=== PATIENT | female | born 1950 | race Caucasian/White ===

== ENCOUNTER 2020-09-07 00:19 | Inpatient (IN) | payer MEDICARE, SELFPAY ==
[2020-09-07] VITALS (27 sets, daily range): BP systolic 113–183; BP diastolic 51–124; PULSE 74–159; RESP 16–39; TEMP 35.8–37.1; O2SAT 82–98
--- NOTE | ~2020-09-07 | XR_ITS ---
EXAMINATION: XR chest 1V portable EXAM DATE: 09/07/2020 01:06 INDICATION: rule out pneumonia, covid PUI, shortness of breath x 24 hrs. TECHNIQUE: Portable AP frontal chest x-ray was obtained. Comparison is made to prior examination from 03/14/2008. FINDINGS: Small amount of right basilar atelectasis or infiltrate. The lungs are otherwise clear. Th ere are no pleural effusions. Cardiac silhouette is prominent but magnified on this AP technique. M ild hyperinflation. There is aortic arteriosclerosis. There is no pneumothorax suspected. The bones and soft tissues are unremarkable. IMPRESSION: Small amount of right basilar atelectasis or infiltrate. Hyperinflation. Reviewed, dictated and finalized at location A. 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 Hyperinfla tion.
--- NOTE | 2020-09-07 00:27 | ED.SOB ---
HPI - SOB/Dyspnea General Chief Complaint: Shortness of Breath/Dyspnea Stated Complaint: difficulty breathing Time Seen by Provider: 09/07/20 00:26 Source: patient and family Mode of arrival: wheelchair Limitations: no limitations History of Present Illness HPI Narrative: Patient is a 70-year-old female with a history of hypertension, hyperlipidemia, previous heart attack in 2003 who presents for evaluation of shortness of breath. Patient with increasing shortness of breath over the past 24 hours. She is denying any chest pain. Patient states she is having difficulty breathing, she has had a dry cough. She denies fever, chills or recent sick contacts. She reports mild congestion without sore throat. No loss of sense of taste or smell. is well without any symptoms. Patient is a smoker but she denies any history of COPD. Related Data Allergies Allergy/AdvReac Type Severity Reaction Status Date / Time No Known Allergies Allergy Unverified 01/26/17 00:28 Review of Systems Review of Systems: Narrative: CONSTITUTIONAL: Denies fever, chills, or sweats. EYES: Denies visual changes, redness, or discharge. ENT: Reports mild congestion without sore throat CARDIOVASCULAR: Denies chest pain, palpitations, or edema. RESPIRATORY: Reports cough and shortness of breath GASTROINTESTINAL: Denies abdominal pain, nausea, vomiting, or diarrhea. GENITOURINARY: Denies dysuria or hematuria. SKIN: Denies rash or itching. MUSCULOSKELETAL: Denies back pain, joint pain, or myalgia. NEUROLOGIC: Denies headache, numbness, or weakness. PSYCHIATRIC: Reports history of anxiety PMF Past Medical History Medical History (Updated 09/07/20 @ 02:00 by Giulia Duncan MD) Depression Heart attack Hyperlipidemia Hypertension Nephrolithiasis Social History Social History (Updated 09/07/20 @ 00:51 by Giulia Duncan MD) Smoking status: Current every day smoker Tobacco type: cigarettes Alcohol intake: never Substance use: never Living arrangements: with family Gender identity (if verbalized by the patient): Female Exam Narrative: Exam Narrative: GENERAL: Awake, alert, tachypneic, able to converse in short sentences HEAD: Normocephalic, atraumatic. EYES: PERRLA and EOMI. ENT: Nares clear, no rhinorrhea or epistaxis. Mucous membranes moist. NECK: Supple. CHEST: Moderate respiratory distress, patient is tachypneic, use of abdominal accessory muscles to breathe, decreased aeration at the bases bilaterally HEART: Tachycardic rate, sinus rhythm ABDOMEN:Non distended, non tender EXTREMITIES: Normal range of motion. No edema. SKIN: Warm, dry, no rash. NEURO:No focal deficits. Alert and oriented x3 Course Vital Signs Vital signs: Vital Signs Temperature 37.0 C 09/07/20 00:25 Pulse Rate 141 H 09/07/20 00:25 Respiratory Rate 38 H 09/07/20 00:25 Blood Pressure 183/99 H 09/07/20 00:25 Pulse Oximetry 86 L 09/07/20 00:25 Temperature 37.0 C 09/07/20 00:25 Pulse Rate 92 09/07/20 01:17 Respiratory Rate 28 H 09/07/20 01:17 Blood Pressure 183/99 H 09/07/20 00:31 Pulse Oximetry 96 09/07/20 01:15 MDM - SOB/Dyspnea MDM Narrative Medical decision making narrative: Patient presenting for evaluation of shortness of breath. The time of assessment, patient is in respiratory distress. She is tachycardic, tachypneic, hypoxic. Patient was placed on oxygen via nasal cannula, given smoking history, coarse breath sounds with decreased aeration at bilateral bases, is also concern for COPD exacerbation. She did have mild lower extremity edema concerning for possible CHF. Patient was given continuous DuoNeb treatment, magnesium, steroids with much improvement in her symptoms. She was quite hypertensive, given BNP is over 6000, was also concern for concurrent CHF as give the patient Lasix, nitroglycerin which also greatly improved her symptoms. Perhaps multifactorial origin of the hypoxic respiratory failure given conc
--- NOTE | 2020-09-07 00:28 | ECG_ITS ---
Measurements Intervals [place] Rate: 130 P: 57 ND: 150 QRS: -10 QRSD: 113 T: 28 QT: 305 QTc: 449 Interpretive Statements SINUS TACHYCARDIA INTRAVENTRICULAR CONDUCTION DELAY CONSIDER INFERIOR INFARCT, AGE INDETERMINATE ST-T WAVE ABNORMALITY IN HIGH LATERAL LEADS- CONSIDER ISCHEMIA BASELINE ARTIFACT- I, II, III, AVR, V1, V3-V6 ABNORMAL ECG Electronically Signed On 09-07-2020 8:54:21 ASSISTANT DISTRICT ATTORNEY by Isac Dey D.O.
[2020-09-07] MEDS: SODIUM CHLORIDE 0.9% IV 1,000 ML 999 ML IV CONT (00:50)
[2020-09-07 00:53] LABS: Alveolar/Arterial O2 Gradient 30.3 mmHg; Base Excess ABG 0.9 mEq/l (+/-2.0); Carboxyhemoglobin 5.8 % THb (0-2.0); Fractional Inspired Oxygen 24 %; HCO3 ABG 26.5 mEq/l (22.0-26.0); Methemoglobin ABG 0.3 %THb (0-1.5); Oxygen Content ABG 19.3 %vol (16.0-22.0); Oxygen Saturation ABG 96.3 % (95.0-100.0); Oxyhemoglobin 90.5 % THb (90.0-100.0); PCO2 ABG 45.8 mmHg (35.0-45.0); PO2 ABG 86.3 mmHg (80.0-100.0); Reduced Hemoglobin 3.4 %THb (0-5.0); Total Hemoglobin 15.1 g/dL (12.0-18.0)
[2020-09-07 00:59] LABS: Basophils Percent Auto 0.3 % (0.2-1.2); Eosinophils Percent Auto 0.3 % (0-4.4); Hematocrit 43.9 % (37.0-47.0); Hemoglobin 14.7 g/dL (12.0-15.0); Immature Granulocyte Absolute 0.06 K/mm3 (0.00-0.031); Immature Granulocyte Percent A 0.5 % (0-0.5); Lymphocytes Absolute Auto 1.78 K/mm3 (0.9-3.2); Lymphocytes Percent Auto 13.5 % (18.3-44.2); Mean Corpuscular HGB Conc 33.5 g/dl (32-36); Mean Corpuscular Hemoglobin 29.2 pg (26-34); Mean Corpuscular Volume 87.3 fl (80-100); Mean Platelet Volume 11.7 fl (7.4-10.4); Monocytes Absolute Auto 0.7 K/mm3 (0.1-0.6); Monocytes Percent Auto 5.2 % (2.6-8.5); Neutrophils Absolute Auto 10.6 K/mm3 (1.3-6.7); Neutrophils Percent Auto 80.2 % (45.5-73.1); Platelet Count Result 341 k/mm3 (150-375); Red Blood Count 5.03 M/mm3 (4.2-5.4); Red Cell Distribution Width 12.2 % (11.5-14.5); White Blood Count 13.2 K/mm3 (4.5-10.0)
[2020-09-07] MEDS: ALBUTEROL SULFATE NEB 2.5 MG/0.5 ML INH 20 MG INHALATION (01:05)
[2020-09-07 01:06] LABS: INR 1.1; Prothrombin Time 14.6 Seconds (11.1-14.7)
[2020-09-07 01:07] LABS: Partial Thromboplastin Time 34.5 SECONDS (22.3-36.8)
[2020-09-07 01:08] LABS: Lactic Acid Reflex 1.7 mmol/L (0.7-2.1)
[2020-09-07 01:11] LABS: Alanine Aminotransferase 13 U/L (4-35); Albumin Level 3.8 g/dL (3.5-5.1); Alkaline Phosphatase 113 U/L (38-126); Anion Gap 6 mmol/L (8-16); Aspartate Amino Transferase 22 U/L (14-36); Bilirubin,Total 0.6 mg/dL (0.2-1.3); Blood Urea Nitrogen 6 mg/dL (7-17); CRP 6.2 mg/dL (<1.0); Carbon Dioxide 31 mmol/L (22-30); Chloride 101 mmol/L (98-107); Estimated CRCL calculation 58 ml/min; Estimated Glomerular Filt Rate > 60; Glucose 164 mg/dL (65-105); Lactate Dehydrogenase 476 U/L (313-618); Potassium 3.4 mmol/L (3.4-5.0); Sodium 138 mmol/L (137-145)
[2020-09-07] MEDS: methylPREDNISolone SOD SUCC 125 MG VIAL IV PUSH (01:19)
[2020-09-07] MEDS: MAGNESIUM SULF 2 GM/WATER 50ML 2 GM/50 ML BAG IVPB (01:19)
[2020-09-07 01:26] LABS: NT Pro B Type Natriuretic Pept 6140 PG/ML (5-100); Troponin I 0.592 ng/mL (0.000-0.034)
[2020-09-07] MEDS: FUROSEMIDE INJ 40 MG/4 ML VIAL IV PUSH ×2 (01:45→09:33)
[2020-09-07] MEDS: NITROGLYCERIN OINTMENT 1 INCH DOSE TRANSDERM (01:45)
[2020-09-07] MEDS: NITROGLYCERIN SL 0.4 MG TABLET SUBLINGUAL (01:50)
[2020-09-07 02:55] LABS: Add Urine Microscopic? YES; Appearance Urine Clear (Clear); Bacteria Urine Trace /hpf; Bilirubin Urine Negative (Negative); Blood Urine 1+ (Negative); Color Urine Straw (Yellow); Glucose Urine UA Negative (Negative); Ketones Urine Negative (Negative); Leukocyte Esterase Ur 1+ LEU/UL (Negative); Mucus Urine Rare /lpf; Nitrate Urine Negative (Negative); Protein Urine Negative (Negative); Specific Grav Ur 1.009 (1.001-1.035); Squamous Epithelial Cell Urine Moderate /hpf (Few); Urobilinogen Urine Negative mg/dL (<2.0); WBC Urine 21-30 /hpf
--- NOTE | 2020-09-07 03:01 | PM.IMHP ---
H&P: HPI History of Present Illness Date/Time: 09/07/20 03:01 Chief complaint: COPD exacerbation, CHF exacerbation Narrative: This is a pleasant 70-year-old female with known history of hypertension, hyperlipidemia, coronary artery disease status post stent placement who is a chronic smoker and presented to the hospital with a complaint of increased shortness of breath over the past day. The patient has not noticed Ng any increased wheezing although she does report having hacking dry cough. She also denies any significant fevers, chills, chest pain, palpitations, abdominal pain, dysuria, rectal bleeding, or black tarry stools. She also does report having increased lower extremity swelling recently. She has no previous history of COPD that she is aware of. The patient was evaluated emergency room this evening and found to have an elevated BNP of 6140, an elevated troponin of 0.592, and chest x-ray demonstrated bilateral pulmonary edema. Urinalysis was also suspicious for possible UTI. Patient has been treated with breathing treatments and IV Lasix. She has no previous history of congestive heart failure, Cirrhosis, or nephrotic syndrome. she was placed on 2 L of oxygen via nasal cannula and swab for frank virus. She has no other complaints at this time. Review of Systems Review of Systems: All systems reviewed & are unremarkable except as noted in HPI and below PMFSH Past Medical History Medical History Depression Heart attack Hyperlipidemia Hypertension Nephrolithiasis Surgical History Surgical History History of coronary artery stent placement Family History Family History Father Cancer Mother Acute myocardial infarction Social History Social History Smoking packs per day: 1.5 Smoking cigarettes per day: 30.0 Years smoked: 50 Smoking pack-years: 75.00 Smoking status: Current every day smoker Tobacco type: cigarettes Alcohol intake: never Substance use: never Living arrangements: with family Gender identity (if verbalized by the patient): Female Spiritual care concerns: No Meds Home Medications and Allergies Home Medications Medication Instructions Recorded Confirmed Type aspirin 325 mg PO DAILY 09/07/20 09/07/20 History losartan 25 mg DAILY 09/07/20 09/07/20 History Allergies Allergy/AdvReac Type Severity Reaction Status Date / Time No Known Allergies Allergy Unverified 01/26/17 00:28 Vital Signs Vital Signs - 24 hr 09/07/20 00:25 09/07/20 00:27 09/07/20 00:28 Temperature 37.0 C Pulse Rate 141 H 159 H 132 H Respiratory Rate 38 H 28 H 37 H Blood Pressure 183/99 H 162/124 H Pulse Oximetry 86 L 82 L 87 L 09/07/20 00:30 09/07/20 00:31 09/07/20 00:45 Temperature Pulse Rate 138 H 135 H 128 H Respiratory Rate 39 H 23 H 33 H Blood Pressure 183/99 H Pulse Oximetry 91 93 93 09/07/20 00:51 09/07/20 01:00 09/07/20 01:15 Temperature Pulse Rate 130 H 118 H 105 H Respiratory Rate 31 H 21 H Blood Pressure Pulse Oximetry 94 95 96 09/07/20 01:17 09/07/20 02:51 Temperature Pulse Rate 92 89 Respiratory Rate 28 H 24 H Blood Pressure 130/72 Pulse Oximetry 95 Exam Const: General: cooperative, alert and awake Nutritional Appearance: obese morbidly obese Orientation/consciousness: patient oriented x3 HENMT: Head: normal to inspection General nose exam: Normal external nose present Face and sinus: normal facial exam Mouth: Yes Normal oral and palatal mucosa present and Yes oropharynx normal Eyes: Pupils: Equal, round and reactive pupils present EOM: EOMs intact bilaterally Neck: Neck: supple and no JVD Thyroid: thyroid normal Lymphatic: lymphadenopathy not noted Resp: Effort & Inspection: tachypneic Ausc
--- NOTE | 2020-09-07 03:07 | PC.NURSE ---
This patient, Monica Rangel, was admitted to IMU Room 210-01. Patient/family oriented to hospital policies and general routines including ID bracelet, bed and alarms, visiting hours, pain management, procedures, bathroom and other care routines, personal items, smoking policy, room service/diet, and visiting hours. Information on how to activate the Rapid Response Team has been discussed. Patient/Family are encouraged to report perceived risks to care and to ask questions if they do not understand what they are told or what they should do.
[2020-09-07 06:01] LABS: Basophils Percent Auto 0.2 % (0.2-1.2); Hematocrit 40.2 % (37.0-47.0); Hemoglobin 13.6 g/dL (12.0-15.0); Immature Granulocyte Absolute 0.05 K/mm3 (0.00-0.031); Immature Granulocyte Percent A 0.5 % (0-0.5); Lymphocytes Absolute Auto 0.56 K/mm3 (0.9-3.2); Lymphocytes Percent Auto 5.3 % (18.3-44.2); Mean Corpuscular HGB Conc 33.8 g/dl (32-36); Mean Corpuscular Volume 88.5 fl (80-100); Mean Platelet Volume 11.6 fl (7.4-10.4); Monocytes Absolute Auto 0.1 K/mm3 (0.1-0.6); Neutrophils Absolute Auto 9.8 K/mm3 (1.3-6.7); Platelet Count Result 267 k/mm3 (150-375); Red Blood Count 4.54 M/mm3 (4.2-5.4); Red Cell Distribution Width 12.3 % (11.5-14.5); White Blood Count 10.5 K/mm3 (4.5-10.0)
[2020-09-07 06:13] LABS: Anion Gap 6 mmol/L (8-16); Blood Urea Nitrogen 7 mg/dL (7-17); Calcium 8.5 mg/dL (8.4-10.2); Carbon Dioxide 28 mmol/L (22-30); Chloride 104 mmol/L (98-107); Estimated CRCL calculation 58 ml/min; Estimated Glomerular Filt Rate > 60; Glucose 196 mg/dL (65-105); Potassium 3.6 mmol/L (3.4-5.0); Sodium 138 mmol/L (137-145)
[2020-09-07 06:27] LABS: Troponin I 0.684 ng/mL (0.000-0.034)
[2020-09-07 07:09] LABS: Troponin I 0.673 ng/mL (0.000-0.034)
[2020-09-07] MEDS: ALBUTEROL SULFATE NEB 2.5 MG/0.5 ML INH 5 MG INHALATION ×3 (09:05→20:01)
[2020-09-07] MEDS: IPRATROPIUM BR 0.02% INH SOLN 0.5 MG/2.5 ML VIAL INHALATION ×3 (09:05→20:01)
[2020-09-07] MEDS: ASPIRIN 325 MG TABLET PO (09:33)
[2020-09-07] MEDS: methylPREDNISolone SOD SUCC 125 MG VIAL 60 MG IV PUSH ×3 (09:33→17:42)
[2020-09-07 14:03] LABS: Device NASAL CANNULA; Modified Allen's Test Pass; Site Drawn RIGHT RADIAL
--- NOTE | 2020-09-07 17:53 | PM.IMPN ---
Progress Note: A&P Assessment and Plan (1) Acute respiratory failure: Qualifiers: Respiratory failure complication: unspecified whether with hypoxia or hypercapnia Qualified Code(s): J96.00 - Acute respiratory failure, unspecified whether with hypoxia or hypercapnia Code(s): J96.00 - Acute respiratory failure, unspecified whether with hypoxia or hypercapnia Status: Acute Assessment and Plan: Admit to med-surg, telemetry, Continue oxygen supplementation and wean off as tolerated. Monitor pulse oximetry. RT assess and treat. 09/07/20 17:53 patient is 70-year-old female with history of hypertension hyperlipidemia and coronary artery disease unfortunately patient still smokes presented emergency department with a complaint of dry cough and shortness of breath suspect patient may have COVID-19 and patient is being tested an isolated, patient states feeling better compared to when she arrived, denies any fever or chills, not requiring any oxygen, patient is a current smoker her chest x-rays shows possible COPD, will do cardiac echo to further evaluate, will follow-up on COVID-19 test and further recommendation to follow (2) Congestive heart failure: Qualifiers: Heart failure chronicity: acute Heart failure type: unspecified Qualified Code(s): I50.9 - Heart failure, unspecified Code(s): I50.9 - Heart failure, unspecified Status: Acute Assessment and Plan: Continue IV lasix, Is and Os, daily weights, sodium prudent, fluid restricted diet. TSH w/ reflex T4, Echocardiogram in am. (3) Acute exacerbation of chronic obstructive airways disease: Code(s): J44.1 - Chronic obstructive pulmonary disease with (acute) exacerbation Status: Acute Assessment and Plan: The patient likely has undiagonsed COPD. Continue bronchodilators and solumedrol. Continue oxygen supplementation. (4) Elevated troponin: Code(s): R77.8 - Other specified abnormalities of plasma proteins Status: Acute Assessment and Plan: Likely secondary to acute CHF. The patient has not had any chest pain tonight. Trend troponin. (5) Suspected 2019 novel coronavirus infection: Code(s): Z20.828 - Contact with and (suspected) exposure to other viral communicable diseases Status: Acute Assessment and Plan: Continue droplet isolation. Continue supportive care. COVID-19 results pending. (6) Hypertension: Qualifiers: Hypertension type: unspecified Qualified Code(s): I10 - Essential (primary) hypertension Code(s): I10 - Essential (primary) hypertension Status: Chronic Assessment and Plan: Continue Losartan PO. (7) Tobacco dependence: Code(s): F17.200 - Nicotine dependence, unspecified, uncomplicated Status: Chronic Assessment and Plan: I have counseled the patient regarding tobacco cessation for 4 minutes. She verbalized to me that she understands and does not desire a nicotine patch. Subjective Date/time seen: 09/07/20 17:53 patient is 70-year-old female with history of hypertension hyperlipidemia and coronary artery disease unfortunately patient still smokes presented emergency department with a complaint of dry cough and shortness of breath suspect patient may have COVID-19 and patient is being tested an isolated, patient states feeling better compared to when she arrived, denies any fever or chills, not requiring any oxygen, patient is a current smoker her chest x-rays shows possible COPD, will do cardiac echo to further evaluate, will follow-up on COVID-19 test and further recommendation to follow Review of Systems Review of Systems: All systems reviewed & are unremarkable except as noted in HPI and below Objective Data Vital Signs Vital Signs: Vital Signs - 24 hr 09/07/20 00:25 09/07/20 00:27 09/07/20 00:28 Temperature 98.6 F Pulse Rate 141 H 159 H 132 H Respiratory Rate 38 H 28 H 37 H Blood Pressure
[2020-09-07 20:39] LABS: SARS-CoV-2 RNA PCR Negative
[2020-09-07] MEDS: LOSARTAN POTASSIUM 25 MG TABLET BY MOUTH (20:54)
[2020-09-08] VITALS (18 sets, daily range): BP systolic 108–143; BP diastolic 53–71; PULSE 92–997; RESP 16–20; TEMP 36.1–37.2; O2SAT 93–98
--- NOTE | 2020-09-08 | ECHO_ITS ---
Patient Info Name: Monica Rangel Age: 70 years : 1950 Gender: Female Ht: 62 in Wt: 187 lbs BSA: 1.96 m2 HR: 100 bpm BP: 136 / 77 mmHg Heart Rhythm: Sinus Rhythm Technical Quality: Good Exam Date: 09/08/2020 11:37 AM Exam Location: [facility] Patient Status: Inpatient Admit Date: 09/07/2020 Staff Ordering Physician: Arnulfo Drummond MD Air Export Agent: Zac Trotter, ARSH, RT Attending Provider: Luis Valentin MD Exam Type: CA echo doppler color flow Study Info Indications I50.9 - Heart failure, unspecified Complete two-dimensional, color flow and Doppler transthoracic echocardiogram is performed. Strain analysis performed. Summary 1. Complete two-dimensional, color flow and Doppler transthoracic echocardiogram is performed. 2. Left ventricular systolic function is normal, estimated at 65-70%. 3. There is mildly increased left ventricular wall thickness. 4. The left ventricular diastolic function is abnormal. 5. Left atrial chamber dimension is mildly enlarged. 6. There is moderate eccentric mitral valve regurgitation and which severity may be underestimated due to eccentricity. 7. There is trace tricuspid valve regurgitation. 8. Unable to estimate PA systolic pressure due to poor spectral resolution of tricuspid regurgitant jet velocity. 9. There is small pericardial effusion. Left Ventricle Left ventricular chamber dimension is normal. Left ventricular systolic function is normal, estimated at 65-70%. There is mildly increased left ventricular wall thickness. The left ventricular diastolic function is abnormal. Global longitudinal strain is mildly elevated at -17 %. Right Ventricle Right ventricular chamber dimension is normal. Right ventricular systolic function is normal. Left Atria Left atrial chamber dimension is mildly enlarged. Right Atria Right atrial chamber dimension is normal. Aortic Valve The aortic valve is not well visualized. There is mild aortic valve stenosis with a peak velocity of 197 cm/s, mean gradient of 8 mmHg, and aortic valve area of 1.9 cm2. There is no aortic valve regurgitation. Pulmonic Valve The pulmonic valve is not well visualized. There is trace pulmonic regurgitation. Mitral Valve The mitral valve has normal leaflets. There is moderate eccentric mitral valve regurgitation and which severity may be underestimated due to eccentricity. The mitral valve annulus is mildly calcified. Tricuspid Valve The tricuspid valve leaflets are normal. There is trace tricuspid valve regurgitation. Unable to estimate PA systolic pressure due to poor spectral resolution of tricuspid regurgitant jet velocity. Pericardium/Pleural The pericardium appears normal. There is small pericardial effusion. Inferior Vena Cava Dilated inferior vena cava with <50% collapse upon inspiration consistent with elevated right atrial pressure, 10 mmHg. Aorta The aortic root size at the sinus of Valsalva is normal. There is mild aortic atherosclerosis. Left Ventricular Outflow Tract Name Value Normal LVOT 2D LVOT Diameter 2.0 cm LVOT Doppler LVOT Peak Gradient
[2020-09-08] MEDS: methylPREDNISolone SOD SUCC 125 MG VIAL 60 MG IV PUSH ×5 (00:27→23:29)
[2020-09-08] MEDS: ALBUTEROL SULFATE NEB 2.5 MG/0.5 ML INH 5 MG INHALATION ×4 (02:08→20:56)
[2020-09-08] MEDS: IPRATROPIUM BR 0.02% INH SOLN 0.5 MG/2.5 ML VIAL INHALATION ×4 (02:08→20:56)
[2020-09-08 05:46] LABS: Alanine Aminotransferase 14 U/L (4-35); Albumin Level 3.5 g/dL (3.5-5.1); Alkaline Phosphatase 79 U/L (38-126); Anion Gap 8 mmol/L (8-16); Aspartate Amino Transferase 23 U/L (14-36); Bilirubin,Total 0.3 mg/dL (0.2-1.3); Blood Urea Nitrogen 20 mg/dL (7-17); Calcium 9.1 mg/dL (8.4-10.2); Carbon Dioxide 30 mmol/L (22-30); Chloride 101 mmol/L (98-107); Estimated CRCL calculation 52 ml/min; Estimated Glomerular Filt Rate > 60; Glucose 193 mg/dL (65-105); Potassium 3.3 mmol/L (3.4-5.0); Sodium 139 mmol/L (137-145)
[2020-09-08] MEDS: ASPIRIN 325 MG TABLET PO (08:43)
[2020-09-08] MEDS: FUROSEMIDE INJ 40 MG/4 ML VIAL IV PUSH (08:43)
[2020-09-08] MEDS: POTASSIUM CHLORIDE 20 MEQ TABLET 40 MEQ PO (13:01)
--- NOTE | 2020-09-08 14:56 | PM.IMPN ---
Progress Note: A&P Assessment and Plan (1) Acute respiratory failure: Qualifiers: Respiratory failure complication: unspecified whether with hypoxia or hypercapnia Qualified Code(s): J96.00 - Acute respiratory failure, unspecified whether with hypoxia or hypercapnia Code(s): J96.00 - Acute respiratory failure, unspecified whether with hypoxia or hypercapnia Status: Acute Assessment and Plan: Admit to med-surg, telemetry, Continue oxygen supplementation and wean off as tolerated. Monitor pulse oximetry. RT assess and treat. 09/08/20 14:56 patient is 70-year-old female with history of hypertension hyperlipidemia and coronary artery disease unfortunately patient still smokes presented emergency department with a complaint of dry cough and shortness of breath suspect patient may have COVID-19 and patient was tested and isolated, patient COVID test is negative and now patient is on medical floor, most likely patient has shortness of breath secondary to emphysema as patient has history of smoking possible, congestive heart failure as her BNP was 6100, cardiac echo is pending, patient being treated with updraft and Solu-Medrol for possible COPD exacerbation and patient is diuresed for CHF, patient clinically symptoms are improving however her lung exam shows pretty tight air entry, plan is to continue Solu-Medrol and updraft and will add Pulmicort, will continue Lasix and diurese the patient, follow-up on cardiac echo and further recommendation to follow, for PT OT evaluate the patient, encouraged to stop smoking. (2) Congestive heart failure: Qualifiers: Heart failure chronicity: acute Heart failure type: unspecified Qualified Code(s): I50.9 - Heart failure, unspecified Code(s): I50.9 - Heart failure, unspecified Status: Acute Assessment and Plan: Continue IV lasix, Is and Os, daily weights, sodium prudent, fluid restricted diet. TSH w/ reflex T4, Echocardiogram in am. (3) Acute exacerbation of chronic obstructive airways disease: Code(s): J44.1 - Chronic obstructive pulmonary disease with (acute) exacerbation Status: Acute Assessment and Plan: The patient likely has undiagonsed COPD. Continue bronchodilators and solumedrol. Continue oxygen supplementation. (4) Elevated troponin: Code(s): R77.8 - Other specified abnormalities of plasma proteins Status: Acute Assessment and Plan: Likely secondary to acute CHF. The patient has not had any chest pain tonight. Trend troponin. (5) Suspected 2019 novel coronavirus infection: Code(s): Z20.828 - Contact with and (suspected) exposure to other viral communicable diseases Status: Acute Assessment and Plan: Continue droplet isolation. Continue supportive care. COVID-19 results pending. (6) Hypertension: Qualifiers: Hypertension type: unspecified Qualified Code(s): I10 - Essential (primary) hypertension Code(s): I10 - Essential (primary) hypertension Status: Chronic Assessment and Plan: Continue Losartan PO. (7) Tobacco dependence: Code(s): F17.200 - Nicotine dependence, unspecified, uncomplicated Status: Chronic Assessment and Plan: I have counseled the patient regarding tobacco cessation for 4 minutes. She verbalized to me that she understands and does not desire a nicotine patch. Subjective Date/time seen: 09/08/20 14:56 patient is 70-year-old female with history of hypertension hyperlipidemia and coronary artery disease unfortunately patient still smokes presented emergency department with a complaint of dry cough and shortness of breath suspect patient may have COVID-19 and patient was tested and isolated, patient COVID test is negative and now patient is on medical floor, most likely patient has shortness of breath secondary to emphysema as patient has history of smoking possible, congestive heart failure as her BNP was
[2020-09-08] MEDS: LOSARTAN POTASSIUM 25 MG TABLET BY MOUTH (20:34)
[2020-09-08] MEDS: BUDESONIDE RESPULE NEB 0.5 MG/2 ML AMP INHALATION (20:56)
[2020-09-09] VITALS (7 sets, daily range): BP systolic 120–140; BP diastolic 69; PULSE 87–103; RESP 16–20; TEMP 36.4–36.6; O2SAT 95–96
[2020-09-09] MEDS: IPRATROPIUM BR 0.02% INH SOLN 0.5 MG/2.5 ML VIAL INHALATION ×3 (03:07→13:12)
[2020-09-09] MEDS: ALBUTEROL SULFATE NEB 2.5 MG/0.5 ML INH 5 MG INHALATION ×3 (03:07→13:12)
[2020-09-09 05:07] LABS: Albumin Level 3.6 g/dL (3.5-5.1); Alkaline Phosphatase 71 U/L (38-126); Anion Gap 9 mmol/L (8-16); Aspartate Amino Transferase 36 U/L (14-36); Bilirubin,Total 0.4 mg/dL (0.2-1.3); Blood Urea Nitrogen 30 mg/dL (7-17); Calcium 9.2 mg/dL (8.4-10.2); Carbon Dioxide 29 mmol/L (22-30); Chloride 102 mmol/L (98-107); Estimated CRCL calculation 52 ml/min; Estimated Glomerular Filt Rate > 60; Glucose 176 mg/dL (65-105); Potassium 4.1 mmol/L (3.4-5.0); Sodium 140 mmol/L (137-145)
[2020-09-09 05:11] LABS: Alanine Aminotransferase 23 U/L (4-35)
[2020-09-09] MEDS: methylPREDNISolone SOD SUCC 125 MG VIAL 60 MG IV PUSH ×2 (05:38→12:29)
--- NOTE | 2020-09-09 06:47 | P.CDI_ITS ---
CDI Query Clarification Request -Acute CHF has been documented -Lasix 40mg IV daily ordered -Echo summary: EF 65-70%, diastolic function is abnormal,small pericardial effusion Please clarify type of acute CHF: * Systolic * Diastolic * Both systolic and diastolic * Unable to determine <Dionne Escalante RN - Last Filed: 09/09/20 06:50> Clarified Diagnosis (1) Congestive heart failure: Qualifiers: Heart failure chronicity: acute Heart failure type: unspecified Qualified Code(s): I50.9 - Heart failure, unspecified <Dionne Escalante RN - Last Filed: 09/09/20 06:50> Code(s): I50.9 - Heart failure, unspecified <Dionne Escalante RN - Last Filed: 09/09/20 06:50> Status: Acute <Dionne Escalante RN - Last Filed: 09/09/20 06:50> Assessment and Plan: Patient presented with shortness of breath initially suspected the patient may have congestive heart failure and was started on Lasix however cardiac echo showed normal ejection fraction and mild diastolic dysfunction most likely patient had acute on chronic diastolic dysfunction <Arnulfo Drummond MD - Last Filed: 09/24/20 10:23>
[2020-09-09] MEDS: BUDESONIDE RESPULE NEB 0.5 MG/2 ML AMP INHALATION (09:16)
[2020-09-09] MEDS: ASPIRIN 325 MG TABLET PO (09:29)
[2020-09-09] MEDS: FUROSEMIDE INJ 40 MG/4 ML VIAL IV PUSH (09:29)
--- NOTE | 2020-09-09 15:13 | PM.DS ---
DS: Admitting Diagnosis Admitting Diagnosis Admitting Diagnosis: COPD exacerbation, CHF exacerbation DS: Discharge Diagnosis Discharge Diagnosis (1) Acute respiratory failure: Qualifiers: Respiratory failure complication: unspecified whether with hypoxia or hypercapnia Qualified Code(s): J96.00 - Acute respiratory failure, unspecified whether with hypoxia or hypercapnia Code(s): J96.00 - Acute respiratory failure, unspecified whether with hypoxia or hypercapnia Status: Acute Assessment and Plan: Admit to med-surg, telemetry, Continue oxygen supplementation and wean off as tolerated. Monitor pulse oximetry. RT assess and treat. 09/08/20 14:56 patient is 70-year-old female with history of hypertension hyperlipidemia and coronary artery disease unfortunately patient still smokes presented emergency department with a complaint of dry cough and shortness of breath suspect patient may have COVID-19 and patient was tested and isolated, patient COVID test is negative and now patient is on medical floor, most likely patient has shortness of breath secondary to emphysema as patient has history of smoking possible, congestive heart failure as her BNP was 6100, cardiac echo is pending, patient being treated with updraft and Solu-Medrol for possible COPD exacerbation and patient is diuresed for CHF, patient clinically symptoms are improving however her lung exam shows pretty tight air entry, plan is to continue Solu-Medrol and updraft and will add Pulmicort, will continue Lasix and diurese the patient, follow-up on cardiac echo and further recommendation to follow, for PT OT evaluate the patient, encouraged to stop smoking. (2) Congestive heart failure: Qualifiers: Heart failure chronicity: acute Heart failure type: unspecified Qualified Code(s): I50.9 - Heart failure, unspecified Code(s): I50.9 - Heart failure, unspecified Status: Acute Assessment and Plan: Continue IV lasix, Is and Os, daily weights, sodium prudent, fluid restricted diet. TSH w/ reflex T4, Echocardiogram in am. (3) Acute exacerbation of chronic obstructive airways disease: Code(s): J44.1 - Chronic obstructive pulmonary disease with (acute) exacerbation Status: Acute Assessment and Plan: The patient likely has undiagonsed COPD. Continue bronchodilators and solumedrol. Continue oxygen supplementation. (4) Elevated troponin: Code(s): R77.8 - Other specified abnormalities of plasma proteins Status: Acute Assessment and Plan: Likely secondary to acute CHF. The patient has not had any chest pain tonight. Trend troponin. (5) Suspected 2019 novel coronavirus infection: Code(s): Z20.828 - Contact with and (suspected) exposure to other viral communicable diseases Status: Acute Assessment and Plan: Continue droplet isolation. Continue supportive care. COVID-19 results pending. (6) Hypertension: Qualifiers: Hypertension type: unspecified Qualified Code(s): I10 - Essential (primary) hypertension Code(s): I10 - Essential (primary) hypertension Status: Chronic Assessment and Plan: Continue Losartan PO. (7) Tobacco dependence: Code(s): F17.200 - Nicotine dependence, unspecified, uncomplicated Status: Chronic Assessment and Plan: I have counseled the patient regarding tobacco cessation for 4 minutes. She verbalized to me that she understands and does not desire a nicotine patch. DS: Summary Hospital Course Reason for hospitalization: Chief complaint: COPD exacerbation, CHF exacerbation Narrative: This is a pleasant 70-year-old female with known history of hypertension, hyperlipidemia, coronary artery disease status post stent placement who is a chronic smoker and presented to the hospital with a complaint of increased shortness of breath over the past day. The patient has not noticed Ng any increased whe
== END 2020-09-09 16:00 | disposition home or self-care (01) | DRG 190 ==
LOC: ANHED 02:00 → ANHIMU 06:24
PROVIDERS: Admitting Provider Family Medicine; Emergency Provider Emergency Medicine; PCP Family Medicine Adolescent Medicine; Visit Provider Family Medicine
DX: J43.9 Emphysema, unspecified (principal); J96.00 Acute respiratory failure, unspecified whether with hypoxia or hypercapnia; N39.0 Urinary tract infection, site not specified; I11.0 Hypertensive heart disease with heart failure; I50.9 Heart failure, unspecified; Z20.828 Contact with and (suspected) exposure to other viral communicable diseases; I25.10 Atherosclerotic heart disease of native coronary artery without angina pectoris; E78.5 Hyperlipidemia, unspecified; F17.210 Nicotine dependence, cigarettes, uncomplicated; R77.8 Other specified abnormalities of plasma proteins; I25.2 Old myocardial infarction; Z28.21 Immunization not carried out because of patient refusal; Z95.5 Presence of coronary angioplasty implant and graft; Z79.82 Long term (current) use of aspirin; Z79.899 Other long term (current) drug therapy
CPT/HCPCS: 36415; 36600; 71045; 80048; 80053; 81001; 82375; 82728; 82805; 83050; 83605; 83615; 83880; 84484; 85025; 85610; 85730; 86140; 87040; 87077; 87086; 87088; 87186; 87635; 87804; 93005; 93306; 94640; 96365; 96367; 96375; 99285; A9270; C9803; J0131; J1940; J2930; J3475; J7030; U0003

== ENCOUNTER 2021-01-10 09:41 | Observation (INO) | payer MEDICARE, SELFPAY ==
[2021-01-10] VITALS (9 sets, daily range): BP systolic 103–126; BP diastolic 61–78; PULSE 72–99; RESP 18–20; TEMP 36.6–37.1; O2SAT 93–100; BMI 32.4
--- NOTE | ~2021-01-10 | US_ITS ---
EXAMINATION: US venous doppler LE RT DATE: 01/10/2021 11:18 INDICATION: Right lower limb pain and swelling. TECHNIQUE: Grayscale ultrasound images without and with compression and Doppler ultrasound images of the right lower extremity veins were obtained. COMPARISON: None. FINDINGS: The visualized portions of right common femoral vein, profunda (deep) femoral vein, femoral vein, pop liteal vein, peroneal veins, posterior tibial veins, and greater saphenous vein outflow are patent. IMPRESSION: 1. No deep venous thrombosis. Reviewed, dictated and finalized at location A.
--- NOTE | ~2021-01-10 | XR_ITS ---
EXAMINATION: XR foot RT min 3V DATE: 01/10/2021 10:44 INDICATION: Right foot pain. TECHNIQUE: 4 views of right foot were obtained. COMPARISON: None. FINDINGS: Bone alignment is normal. No fracture. There is mild osteoarthritis of first metatarsophala ngeal joint and some of the interphalangeal joints. There are enthesophytes at the posterior and plan tar aspects of calcaneal tuberosity. IMPRESSION: 1. Mild polyarticular osteoarthritis. Reviewed, dictated and finalized at location A.
--- NOTE | 2021-01-10 10:33 | ED.LOWEXIN ---
HPI - Extremity Injury (Lower) General Chief Complaint: Extremity Injury, Lower Stated Complaint: right foot/r/o dvt Time Seen by Provider: 01/10/21 10:09 Source: patient Mode of arrival: ambulatory Limitations: no limitations History of Present Illness HPI Narrative: This is a 71 year old female that presents to the ER for right lower leg pain and swelling. Reports it started this morning. No known injury or trauma. Pain is mostly in the lateral aspect of the foot. Reports swelling of the foot into the ankle. Denies fever, erythema, decreased range of motion or warmth. Related Data Home Medications Medication Instructions Recorded Confirmed aspirin 325 mg PO DAILY 09/07/20 09/07/20 losartan 25 mg DAILY 09/07/20 09/07/20 Allergies Allergy/AdvReac Type Severity Reaction Status Date / Time No Known Allergies Allergy Unverified 01/26/17 00:28 Review of Systems Review of Systems: Narrative: CONSTITUTIONAL: Denies fever SKIN: Denies rash MUSCULOSKELETAL: Reports joint pain, and myalgia. NEUROLOGIC: Denies numbness All systems reviewed & are unremarkable except as noted in HPI and below PMFSH Past Medical History Medical History Depression Heart attack Hyperlipidemia Hypertension Nephrolithiasis Surgical History Surgical History History of coronary artery stent placement Family History Family History Father Cancer Mother Acute myocardial infarction Social History Social History Smoking packs per day: 1.5 Smoking cigarettes per day: 30.0 Years smoked: 50 Smoking pack-years: 75.00 Smoking status: Current every day smoker Tobacco type: cigarettes Alcohol intake: never Substance use: never Gender identity (if verbalized by the patient): Female Spiritual care concerns: No Exam Narrative: Exam Narrative: GENERAL: Well-appearing, well-nourished, and in no acute distress. HEAD: Normocephalic, atraumatic. EYES: EOMI. EXTREMITIES: Normal range of motion. Mild edema about the right ankle. No erythema or warmth. Normal sensation. Normal DP pulses SKIN: Warm, dry, no rash. NEURO: No focal deficits. Alert and oriented x3. PSYCH: Normal mood and affect Course Consultations Consultation #1: Spoke with Dr. Whitman about patient and workup who accepts admission Date: 01/10/21 Time: 13:24 Vital Signs Vital signs: Vital Signs Temperature 97.8 F 01/10/21 09:49 Pulse Rate 99 01/10/21 09:49 Respiratory Rate 18 01/10/21 09:49 Blood Pressure 112/61 01/10/21 09:49 Pulse Oximetry 93 01/10/21 09:49 Temperature 97.8 F 01/10/21 09:49 Pulse Rate 99 01/10/21 09:49 Respiratory Rate 18 01/10/21 09:49 Blood Pressure 112/61 01/10/21 09:49 Pulse Oximetry 93 01/10/21 09:49 MDM - Extremity Injury (Lower) MDM Narrative Medical decision making narrative: Patient presents to the ER for right lower extremity pain and swelling. Mild swelling about the right ankle. No erythema or warmth, no rashes or wounds. Normal DP pulses and sensation. She is afebrile and nontoxic-appearing. Not injuries. Right foot x-ray shows mild polyarticular osteoarthritis. Right lower extremity venous Dopplers without evidence of DVT. Labs are significant for hemoconcentration. Metabolic panel also shows evidence of likely dehydration and hypokalemia. Patient's bicarb noted to be >40 on metabolic panel. ABG shows a bicarb of 50, so patient is retaining, but i suspect patient is a chronic retainer due to COPD. She does not have any shortness of breath. Lungs are clear. Oxygen saturation is 95% on room air. EKG without U waves. Does show some flattened T waves and QT prolongation. Patient denies any chest pain or shortness of breath. Patient will be admitted for further cardiac monitoring a
[2021-01-10 11:02] LABS: Basophils Absolute Auto 0.1 K/mm3 (0.0-0.1); Basophils Percent Auto 0.7 % (0.2-1.2); Eosinophils Percent Auto 0.3 % (0-4.4); Hematocrit 47.7 % (37.0-47.0); Hemoglobin 16.3 g/dL (12.0-15.0); Immature Granulocyte Absolute 0.04 K/mm3 (0.00-0.031); Immature Granulocyte Percent A 0.4 % (0-0.5); Lymphocytes Absolute Auto 1.21 K/mm3 (0.9-3.2); Lymphocytes Percent Auto 11.7 % (18.3-44.2); Mean Corpuscular HGB Conc 34.2 g/dl (32-36); Mean Corpuscular Hemoglobin 27.1 pg (26-34); Mean Corpuscular Volume 79.4 fl (80-100); Monocytes Absolute Auto 0.8 K/mm3 (0.1-0.6); Monocytes Percent Auto 7.3 % (2.6-8.5); Neutrophils Absolute Auto 8.2 K/mm3 (1.3-6.7); Neutrophils Percent Auto 79.6 % (45.5-73.1); Platelet Count Result 269 k/mm3 (150-375); Red Blood Count 6.01 M/mm3 (4.2-5.4); White Blood Count 10.4 K/mm3 (4.5-10.0)
[2021-01-10 11:13] LABS: Prothrombin Time 13.7 Seconds (11.1-14.7)
[2021-01-10 11:14] LABS: Blood Urea Nitrogen 29 mg/dL (7-17); Calcium 9.5 mg/dL (8.4-10.2); Carbon Dioxide > 40 mmol/L (22-30); Chloride 84 mmol/L (98-107); Estimated CRCL calculation 44 ml/min; Estimated Glomerular Filt Rate 55; Glucose 165 mg/dL (65-105); Partial Thromboplastin Time 29.5 SECONDS (22.3-36.8); Potassium 2.2 mmol/L (3.4-5.0); Sodium 132 mmol/L (137-145)
[2021-01-10 11:16] LABS: CRP 1.5 mg/dL (<1.0)
[2021-01-10 11:27] LABS: Magnesium 1.7 mg/dL (1.6-2.3)
[2021-01-10] MEDS: POTASSIUM CHLORIDE 20 MEQ TABLET 40 MEQ PO ×2 (11:33→20:08)
--- NOTE | 2021-01-10 11:50 | ECG_ITS ---
Measurements Intervals [place] Rate: 87 P: 50 [place]: 162 QRS: -23 QRSD: 130 T: 59 QT: 429 QTc: 518 Interpretive Statements SINUS RHYTHM POSSIBLE LEFT ATRIAL ENLARGEMENT INTRAVENTRICULAR CONDUCTION DELAY DELAYED PRECORDIAL R/S TRANSITION NONSPECIFIC ST & T-WAVE ABNORMALITY- DIFFUSE LEADS PROLONGED QT INTERVAL ABNORMAL ECG Electronically Signed On 01-10-2021 14:16:06 CDT by Isac Dey D.O.
[2021-01-10] MEDS: SODIUM CHLORIDE 0.9% IV 1,000 ML 125 ML ×2 (12:22→13:56)
[2021-01-10 12:55] LABS: Alveolar/Arterial O2 Gradient 66.3 mmHg; Base Excess ABG 12.9 mEq/l (+/-2.0); Carboxyhemoglobin 8.6 % THb (0-2.0); Fractional Inspired Oxygen 21 %; HCO3 ABG 38.4 mEq/l (22.0-26.0); Methemoglobin ABG 0.3 %THb (0-1.5); Oxygen Content ABG 9.7 %vol (16.0-22.0); Oxyhemoglobin 43.9 % THb (90.0-100.0); PCO2 ABG 50.5 mmHg (35.0-45.0); Reduced Hemoglobin 47.2 %THb (0-5.0); Total Hemoglobin 15.8 g/dL (12.0-18.0); pH ABG 7.499 (7.350-7.450)
[2021-01-10 12:58] LABS: Device ROOM AIR; Modified Allen's Test Pass; Oxygen Saturation ABG 44.5 % (95.0-100.0); Site Drawn LEFT RADIAL
--- NOTE | 2021-01-10 14:50 | ADMGEN ---
This patient, Monica Rangel, was admitted to 3 [facility] Surg Room 301-01. Patient/family oriented to hospital policies and general routines including ID bracelet, bed and alarms, visiting hours, pain management, procedures, bathroom and other care routines, personal items, smoking policy, room service/diet, and visiting hours. Information on how to activate the Rapid Response Team has been discussed. Patient/Family are encouraged to report perceived risks to care and to ask questions if they do not understand what they are told or what they should do.
--- NOTE | 2021-01-10 15:52 | PM.IMHP ---
H&P: HPI History of Present Illness Date/Time: 01/10/21 15:52 Chief Complaint: right foot discomfort Narrative: 71-year-old female with history of hypertension coronary disease and COPD presented the emergency department today because of an aching cramping sensation in her right foot. Her to walk on her foot. It was mild to moderate in nature. Her feet are chronically puffy. She was concerned about blood clots. Upon presentation to the emergency department she was found to have a potassium level of 2.2. She denied dizziness lightheadedness palpitations syncope presyncope or other muscle cramps. Since her hospitalization in August 2020 she was started on diuretics for leg edema. She thinks metolazone was added to her diuretic regimen and late October of 2020. She was previously taking losartan but that was discontinued sometime Since her August 2020 hospitalization. Review of Systems Review of Systems: All systems reviewed & are unremarkable except as noted in HPI and below PMFSH Past Medical History Medical History (Updated 01/10/21 @ 16:27 by Conor Whitman MD) COPD (chronic obstructive pulmonary disease) Depression Heart attack Hyperlipidemia Hypertension Nephrolithiasis Surgical History Surgical History History of coronary artery stent placement Family History Family History Father Cancer Mother Acute myocardial infarction Social History Social History Smoking packs per day: 1 Smoking cigarettes per day: 20.0 Years smoked: 50 Smoking pack-years: 50.00 Smoking status: Current every day smoker Tobacco type: cigarettes Alcohol intake: former Substance use: never Gender identity (if verbalized by the patient): Female Spiritual care concerns: No Meds Home Medications and Allergies Home Medications Medication Instructions Recorded Confirmed Type aspirin 325 mg PO DAILY 09/07/20 01/10/21 History nebulizer and compressor [Comp-Air #1 ea 09/09/20 01/10/21 Rx Nebulizer Compressor] furosemide See Rx Instructions .ROUTE .COMPLEX 01/10/21 01/10/21 History indomethacin 50 mg PO PRN PRN 01/10/21 01/10/21 History metolazone 2.5 mg PO EVERY OTHER DAY 01/10/21 01/10/21 History metoprolol tartrate 25 mg PO BID 01/10/21 01/10/21 History tiotropium-olodaterol [Stiolto 1 inh INHALATION BID 01/10/21 01/10/21 History Respimat] Allergies Allergy/AdvReac Type Severity Reaction Status Date / Time No Known Allergies Allergy Verified 01/10/21 15:03 Vital Signs Vital Signs - 24 hr 01/10/21 09:49 01/10/21 12:00 01/10/21 14:35 Temperature 97.8 F 98.7 F Pulse Rate 99 72 92 Respiratory Rate 18 18 18 Blood Pressure 112/61 126/78 103/70 Pulse Oximetry 93 100 98 01/10/21 15:15 Temperature 98.7 F Pulse Rate 92 Respiratory Rate Blood Pressure 103/70 Pulse Oximetry 98 Exam Narrative: Exam Narrative: HEENT: PERRL, sclerae nonicteric, pharyngeal mucosa pink and intact NECK: No JVD, adenopathy, or thyromegaly CHEST: Mild increased AP diameter. Coarse breath sounds with slight posterior expiratory wheeze. Normal effort. HEART: NL S1/S2, regular, no murmur ABDOMEN: BS+, soft, nontender, no mass, no bruits EXTREMITIES: No cyanosis or clubbing. Mild puffiness of both ankles without pitting. NEUROLOGIC: CN intact and symmetric to inspection. MUSCULOSKELETAL: Tone and strength symmetric. PSYCH: Alert. Oriented to person, place, and time. H&P: Results Labs Labs: Short CBC 01/10/21 Range/Units 10:55 WBC 10.4 H (4.5-10.0) K/mm3 Hgb 16.3 H (12.0-15.0) g/dL Hct 47.7 H (37.0-47.0) % Plt Count 269 (150-375) k/mm3 BMP 01/10/21 10:55 Sodium 132 L Potassium 2.2 L* Chloride 84 L Carbon Dioxide > 40 H BUN 29 H Creatinine 1.00 Glucose 165 H Calcium 9.5 Assessment
[2021-01-10] MEDS: MAGNESIUM SULF 2 GM/WATER 50ML 2 GM/50 ML BAG IVPB (16:59)
[2021-01-10] MEDS: KCL 40 MEQ/0.9% SOD CHL 1,000 ML 80 ML IV CONT (16:59)
[2021-01-10] MEDS: METOPROLOL TARTRATE 25 MG TABLET PO (17:00)
[2021-01-10] MEDS: ENOXAPARIN 40 MG/0.4 ML SYRINGE SUB-Q (18:41)
[2021-01-11] VITALS (8 sets, daily range): BP systolic 103–111; BP diastolic 51–63; PULSE 88–103; RESP 16–20; TEMP 36.3–36.4; O2SAT 90–97
[2021-01-11 06:24] LABS: Anion Gap 0 mmol/L (8-16); Blood Urea Nitrogen 15 mg/dL (7-17); Calcium 8.1 mg/dL (8.4-10.2); Carbon Dioxide 34 mmol/L (22-30); Chloride 99 mmol/L (98-107); Estimated CRCL calculation 55 ml/min; Estimated Glomerular Filt Rate > 60; Glucose 116 mg/dL (65-105); Potassium 3.3 mmol/L (3.4-5.0); Sodium 133 mmol/L (137-145)
[2021-01-11] MEDS: KCL 40 MEQ/0.9% SOD CHL 1,000 ML 80 ML IV CONT (06:27)
[2021-01-11 07:48] LABS: Hematocrit 41.5 % (37.0-47.0); Hemoglobin 13.9 g/dL (12.0-15.0); Mean Corpuscular HGB Conc 33.5 g/dl (32-36); Mean Corpuscular Hemoglobin 27.3 pg (26-34); Mean Corpuscular Volume 81.5 fl (80-100); Platelet Count Result 218 k/mm3 (150-375); Red Blood Count 5.09 M/mm3 (4.2-5.4); Red Cell Distribution Width 14.9 % (11.5-14.5); White Blood Count 8.4 K/mm3 (4.5-10.0)
[2021-01-11] MEDS: POTASSIUM CHLORIDE 20 MEQ TABLET 40 MEQ PO (08:18)
[2021-01-11] MEDS: ASPIRIN 325 MG TABLET PO (08:18)
[2021-01-11] MEDS: ATORVASTATIN 40 MG TABLET PO (08:18)
[2021-01-11] MEDS: METOPROLOL TARTRATE 25 MG TABLET PO (08:18)
--- NOTE | 2021-01-11 14:14 | PM.DS ---
DS: Admitting Diagnosis Admitting Diagnosis Admitting Diagnosis: Hypokalemia DS: Discharge Diagnosis Discharge Diagnosis (1) Acute hypokalemia: Code(s): E87.6 - Hypokalemia Status: Acute Assessment and Plan: Discharge Summary (Date of service 01/11/21): Mrs. Rangel is a 71 y.o. female with PMH significant for COPD, hyperlipidemia, hypertension, and coronary artery disease who presented to the emergency department on 01/10/21 for the evaluation of aching and cramping pain in the right foot with chronic swelling. She was concerned that she might have a DVT which prompted evaluation. She was recently started on metolazone approximately 1 month prior. On arrival to the emergency department, vitals were stable. Labs were notable for CBC with hemoconcentration, sodium 132, potassium 2.2, chloride 84, CO2 >40, BUN 29, CRP 1.5, and magnesium 1.6. ABG demonstrated elevated pH of 7.499 and pCO2 which appears to be chronic, likely due to COPD. Low pO2 on ABG likely due to presence of reduced hemoglobin. Venous doppler US was negative for DVT. Right foot x-ray demonstrated mild polyarticular osteoarthritis without acute fracture. She was treated with potassium replacement and gentle IV fluids and admitted to the hospitalist service for further care. Her electrolyte abnormalities were felt secondary to diuretic therapy. Her electrolytes improved with treatment. Her diuretic regimen prior to admission consisted of alternating furosemide 40mg and 80mg every other day. On the days she took furosemide 40mg, she also took metolazone 2.5mg. I called to discuss her diuretic regimen with Dr. Reyes who recommended that she switch to furosemide 40mg daily and continue metolazone 2.5 every other day. Potassium supplement was initiated and she will have repeat CMP in 1 week for monitoring. She will see Dr. Reyes within 1 week for a hospital follow-up visit. She was advised to monitor her volume status closely at home with daily weights. I advised she call her PCP should she gain >3 pounds in 24-48 hours or 5 pounds in 1 week. She felt much better and requested discharge. Her foot pain was possibly related to muscle cramp from hypokalemia as she noted this resolved. She had no other concerns and she was hemodynamically stable for discharge on the afternoon of 01/11/21. Worrisome signs and symptoms which would warrant return to the emergency department were discussed. Please read additional diagnoses for further information regarding her stay. (2) Metabolic alkalosis: Code(s): E87.3 - Alkalosis Status: Acute Assessment and Plan: Likely due to volume and chloride depletion. Respiratory compensation noted. She improved with gentle fluid replacment. (3) Hyponatremia: Code(s): E87.1 - Hypo-osmolality and hyponatremia Status: Acute Assessment and Plan: Likely due to thiazide diuretic and volume depletion. She received gentle IV fluids with improvement. Her home diuretic regimen was adjusted by decreasing her furosemide dose in coordination with Dr. Reyes. She will have repeat CMP in 1 week for monitoring. (4) Tobacco dependence: Code(s): F17.200 - Nicotine dependence, unspecified, uncomplicated Status: Chronic Assessment and Plan: I spent 10 minutes discussing smoking cessation with the patient. Adverse effects were discussed and she verbalized understanding. She has cut back on her smoking. We discussed resuming the nicotine patches and she will consider this and is going to speak with Dr. Reyes. (5) Hypertension: Qualifiers: Hypertension type: unspecified Qualified Code(s): I10 - Essential (primary) hypertension Code(s): I10 - Essential (primary) hypertension Status: Chronic Assessment and Plan: Blood pressures were monitored and at target. Her home antihypertensive regimen was continued. (6) COPD (chronic obstructive pulmonary disease):
== END 2021-01-11 16:50 | disposition home or self-care (01) ==
LOC: ANHED 13:13 → ANH3MEDSUR 13:41
PROVIDERS: Physician Assistant; Admitting Provider Internal Medicine; Emergency Provider Family Medicine; PCP Family Medicine Adolescent Medicine; Visit Provider Family Medicine
DX: E87.6 Hypokalemia (principal); M79.671 Pain in right foot; E78.5 Hyperlipidemia, unspecified; E87.3 Alkalosis; E87.1 Hypo-osmolality and hyponatremia; F17.210 Nicotine dependence, cigarettes, uncomplicated; I10 Essential (primary) hypertension; I25.10 Atherosclerotic heart disease of native coronary artery without angina pectoris; J44.9 Chronic obstructive pulmonary disease, unspecified; Z79.01 Long term (current) use of anticoagulants; Z95.5 Presence of coronary angioplasty implant and graft
CPT/HCPCS: 36415; 36600; 73630; 80048; 82375; 82805; 83050; 83735; 85025; 85027; 85610; 85730; 86140; 93005; 93971; 94762; 96361; 96365; 96366; 96372; 96374; 96375; 96376; 99285; A9270; G0378; J1650; J3475; J3480; J7030

== ENCOUNTER 2021-01-25 06:57 | Emergency (ER) | payer MEDICARE, SELFPAY ==
[2021-01-25 07:02] VITALS: BP 135/82; PULSE 103; RESP 16; TEMP 36; O2SAT 96
[2021-01-25 07:17] VITALS: BP 135/82; PULSE 103; RESP 16; TEMP 36; O2SAT 96
[2021-01-25 07:54] LABS: Basophils Absolute Auto 0.1 K/mm3 (0.0-0.1); Basophils Percent Auto 0.6 % (0.2-1.2); Eosinophils Absolute Auto 0.1 K/mm3 (0-0.3); Eosinophils Percent Auto 1.3 % (0-4.4); Hematocrit 47.2 % (37.0-47.0); Hemoglobin 15.4 g/dL (12.0-15.0); Immature Granulocyte Absolute 0.02 K/mm3 (0.00-0.031); Immature Granulocyte Percent A 0.2 % (0-0.5); Lymphocytes Absolute Auto 1.97 K/mm3 (0.9-3.2); Lymphocytes Percent Auto 23.5 % (18.3-44.2); Mean Corpuscular HGB Conc 32.6 g/dl (32-36); Mean Corpuscular Hemoglobin 26.6 pg (26-34); Mean Corpuscular Volume 81.7 fl (80-100); Mean Platelet Volume 10.8 fl (7.4-10.4); Monocytes Absolute Auto 0.6 K/mm3 (0.1-0.6); Monocytes Percent Auto 6.7 % (2.6-8.5); Neutrophils Absolute Auto 5.7 K/mm3 (1.3-6.7); Neutrophils Percent Auto 67.7 % (45.5-73.1); Platelet Count Result 284 k/mm3 (150-375); Red Blood Count 5.78 M/mm3 (4.2-5.4); White Blood Count 8.4 K/mm3 (4.5-10.0)
[2021-01-25 08:07] LABS: Anion Gap 3 mmol/L (8-16); Blood Urea Nitrogen 18 mg/dL (7-17); CRP 1.1 mg/dL (<1.0); Calcium 9.2 mg/dL (8.4-10.2); Carbon Dioxide 31 mmol/L (22-30); Chloride 102 mmol/L (98-107); Estimated Glomerular Filt Rate 49; Glucose 137 mg/dL (65-105); Potassium 3.9 mmol/L (3.4-5.0); Sodium 136 mmol/L (137-145)
[2021-01-25 08:23] LABS: Erythrocyte Sedimentation Rate 18 mm/hr (0-20)
--- NOTE | 2021-01-25 08:23 | ED.LOWEXIN ---
HPI - Extremity Injury (Lower) General Chief Complaint: Recheck/Abnormal Lab/Rx Stated Complaint: needs her potassium checked Time Seen by Provider: 01/25/21 07:25 Source: patient Mode of arrival: ambulatory Limitations: no limitations History of Present Illness HPI Narrative: 71-year-old female Complains of pain in her right foot She had similar symptoms a couple weeks ago and was seen here X-rays done at that time did show arthritis however her potassium was also 2.2 and it was felt at the time that she might have been having cramps due to dehydration and hypokalemia She was hospitalized overnight and replenished her meds adjusted and she was discharged She is concerned that her potassium might be low again Related Data Home Medications Medication Instructions Recorded Confirmed aspirin 325 mg PO DAILY 09/07/20 01/10/21 Stiolto Respimat 1 inh INHALATION BID 01/10/21 01/10/21 indomethacin 50 mg PO PRN PRN 01/10/21 01/10/21 metolazone 2.5 mg PO EVERY OTHER DAY 01/10/21 01/10/21 metoprolol tartrate 25 mg PO BID 01/10/21 01/10/21 Allergies Allergy/AdvReac Type Severity Reaction Status Date / Time No Known Allergies Allergy Verified 01/10/21 15:03 Review of Systems Review of Systems: All systems reviewed & are unremarkable except as noted in HPI and below Constitutional: Constitutional: Denies fever(s) and Denies headache(s) ENT: Denies headache(s) and Denies epistaxis Cardiovascular: Cardiovascular: Denies leg edema, Denies palpitations and Denies dyspnea Respiratory: Respiratory: Denies cough and Denies dyspnea Gastrointestinal: Gastrointestinal: Denies vomiting Genitourinary: Genitourinary: Denies urinary frequency Musculoskeletal: Musculoskeletal: Denies deformity, Reports arthralgias, Reports joint swelling, Reports muscle cramps, Denies muscle weakness and Denies numbness Integumentary/Breasts: Skin/Breast: Denies rash and Denies wounds Neurologic: Denies numbness and Denies weakness Psychiatric: Psychiatric: Reports no additional psychiatric complaints Endocrine: Endocrine: Denies palpitations Hematologic/Lymphatic: Hematologic/Lymphatic: Denies easy bleeding PMF Past Medical History Medical History (Updated 01/25/21 @ 08:29 by Heber Montalvo MD) COPD (chronic obstructive pulmonary disease) Depression Heart attack Hyperlipidemia Hypertension Nephrolithiasis Surgical History Surgical History History of coronary artery stent placement Family History Family History Father Cancer Mother Acute myocardial infarction Social History Social History Smoking packs per day: 1 Smoking cigarettes per day: 20.0 Years smoked: 50 Smoking pack-years: 50.00 Smoking status: Current every day smoker Tobacco type: cigarettes Alcohol intake: former Substance use: never Gender identity (if verbalized by the patient): Female Spiritual care concerns: No Exam Const: General: no acute distress, well developed, alert and awake Orientation/consciousness: patient oriented x3 (alert) HENMT: Head: normocephalic and atraumatic Ears: external ears normal General nose exam: No nasal discharge present and no epistaxis Face and sinus: face symmetric Eyes: Conjunctivae: conjunctivae normal Sclera: sclerae normal EOM: EOMs intact bilaterally Neck: Neck: normal visual inspection, supple and no JVD Chest: Chest palpation & inspection: deferred Resp: Effort & Inspection: normal respiratory effort, not labored and not tachypneic Auscultation: other (BS =) Cardio: Heart sounds: no gallops GI: Inspection: normal to inspection Back/Spine/Pelvis: Thoracic/Lumbar Spine: thoracic and lumbar spine normal to inspection Skin: General skin exam: normal color and no rashes or lesions noted Rashes: no rashes Neuro
== END 2021-01-25 08:36 | disposition home or self-care (01) ==
PROVIDERS: Emergency Provider Emergency Medicine; PCP Family Medicine Adolescent Medicine
DX: M19.071 Primary osteoarthritis, right ankle and foot (principal); J44.9 Chronic obstructive pulmonary disease, unspecified; I25.2 Old myocardial infarction; E78.5 Hyperlipidemia, unspecified; I10 Essential (primary) hypertension; Z87.442 Personal history of urinary calculi; Z95.5 Presence of coronary angioplasty implant and graft; F17.210 Nicotine dependence, cigarettes, uncomplicated
CPT/HCPCS: 36415; 80048; 85025; 85652; 86140; 99283

== ENCOUNTER 2021-04-14 19:21 | Inpatient (IN) | payer MEDICARE, SELFPAY ==
--- NOTE | ~2021-04-14 | XR_ITS ---
XR chest 2V DATE: 04/14/2021 20:26 INDICATION: Shortness of breath, swelling of the legs. History of congestive heart failure. TECHNIQUE: PA and lateral views COMPARISON: 09/07/2020 portable AP chest FINDINGS: There is a globular enlarged cardiac silhouette which may be due to cardiomegaly/cardiomyop athy and/or pericardial effusion. Aortic calcification and unfolding. No hilar or mediastinal enlargement is evident. The lungs are moderately hyperinflated but clear of infiltrate or consolidation. No pleural effusion or pneumothorax. There is pulmonary vascular redistribution which may indicate mild pulmonary venous hypertension. Degenerative spurring of the thoracic spine. IMPRESSION: Large cardiophrenic silhouette which may be due to cardiomegaly and/or pericardial effusi on Pulmonary vascular redistribution may indicate mild pulmonary venous hypertension Aortic atherosclerosis Moderate hyperinflation; no active pulmonary disease Reviewed, dictated and finalized at location A. IMPRESSION: Large cardiophrenic silhouette which may be due to cardiomegaly and /or pericardial effusion Pulmonary vascular redistribution may indicate mild pulmonary venous hypertensi on Aortic atherosclerosis Moderate hyperinflation; no active pulmonary disease
[2021-04-14 20:07] VITALS: BP 121/62; PULSE 101; RESP 14; TEMP 36.6; O2SAT 92
--- NOTE | 2021-04-14 20:12 | ECG_ITS ---
Measurements Intervals [place] Rate: 100 P: 57 [place]: 168 QRS: -9 QRSD: 117 T: 4 QT: 358 QTc: 462 Interpretive Statements SINUS TACHYCARDIA POSSIBLE LEFT ATRIAL ENLARGEMENT INTRAVENTRICULAR CONDUCTION DELAY DELAYED PRECORDIAL R/S TRANSITION BORDERLINE T WAVE ABNORMALITY- INFERIOR LEADS BORDERLINE ECG Electronically Signed On 04-15-2021 7:30:29 CDT by Isac Dey D.O.
[2021-04-14 20:26] LABS: Basophils Percent Auto 0.5 % (0.2-1.2); Eosinophils Absolute Auto 0.1 K/mm3 (0-0.3); Eosinophils Percent Auto 0.7 % (0-4.4); Hematocrit 30.3 % (37.0-47.0); Hemoglobin 8.8 g/dL (12.0-15.0); Immature Granulocyte Absolute 0.03 K/mm3 (0.00-0.031); Immature Granulocyte Percent A 0.4 % (0-0.5); Lymphocytes Absolute Auto 1.21 K/mm3 (0.9-3.2); Lymphocytes Percent Auto 16.3 % (18.3-44.2); Mean Corpuscular Hemoglobin 18.1 pg (26-34); Mean Corpuscular Volume 62.2 fl (80-100); Mean Platelet Volume 9.8 fl (7.4-10.4); Monocytes Absolute Auto 0.7 K/mm3 (0.1-0.6); Monocytes Percent Auto 9.9 % (2.6-8.5); Neutrophils Absolute Auto 5.4 K/mm3 (1.3-6.7); Neutrophils Percent Auto 72.2 % (45.5-73.1); Platelet Count Result 359 k/mm3 (150-375); Red Blood Count 4.87 M/mm3 (4.2-5.4); Red Cell Distribution Width 21.1 % (11.5-14.5); White Blood Count 7.4 K/mm3 (4.5-10.0)
[2021-04-14 20:36] LABS: Anion Gap 9 mmol/L (8-16); Blood Urea Nitrogen 19 mg/dL (7-17); Calcium 8.8 mg/dL (8.4-10.2); Carbon Dioxide 28 mmol/L (22-30); Chloride 91 mmol/L (98-107); Estimated CRCL calculation 45 ml/min; Estimated Glomerular Filt Rate 55; Glucose 130 mg/dL (65-105); Sodium 128 mmol/L (137-145)
[2021-04-14 20:46] LABS: Hypochromasia 1+ (NORMAL); Platelet Estimate Adequate (Adequate)
[2021-04-14 20:47] LABS: Anisocytosis 3+ (NORMAL)
[2021-04-14 20:48] LABS: NT Pro B Type Natriuretic Pept 12400 pg/mL (5-100); Troponin I 0.025 ng/mL (0.000-0.034)
[2021-04-14 21:57] VITALS: BP 126/99; PULSE 98; RESP 18; TEMP 36.7; O2SAT 98
[2021-04-14 23:03] VITALS: BP 120/73; PULSE 99; RESP 30; TEMP 36.8; O2SAT 97
--- NOTE | 2021-04-14 23:17 | ED.GENADULT ---
HPI - General Adult General Chief complaint: Shortness of Breath/Dyspnea Stated complaint: bilateral leg swelling, diff breathing Time Seen by Provider: 04/14/21 23:04 History of Present Illness HPI narrative: Patient 71-year-old female presents the emergency department chief complaint of shortness of breath. Patient reports that she has history of congestive heart failure and has noticed that she has been having increasing peripheral edema. Patient states that now she is having dyspnea on exertion reports that she can only walk about 20 feet without getting extremely winded patient also reports that she has been taking her Lasix and spironolactone and has not had any improvement in her edema in fact now she reports that she feels like she is getting edema even all the way up to her abdominal wall the patient states that she had no chest pain with this reports that at rest she does not have shortness of breath denies hypoxia reports that she has seen cardiology in the last few months had blood work done but has not heard back from them states that she normally takes 40 mg of Lasix on 1 day and then 80 mg the subsequent day. Related Data Home Medications Medication Instructions Recorded Confirmed aspirin 325 mg PO DAILY 09/07/20 01/10/21 Stiolto Respimat 1 inh INHALATION BID 01/10/21 01/10/21 indomethacin 50 mg PO PRN PRN 01/10/21 01/10/21 metolazone 2.5 mg PO EVERY OTHER DAY 01/10/21 01/10/21 metoprolol tartrate 25 mg PO BID 01/10/21 01/10/21 Allergies Allergy/AdvReac Type Severity Reaction Status Date / Time No Known Allergies Allergy Verified 04/14/21 23:02 Review of Systems Review of Systems: Narrative: A 10 system review of systems was completed on the patient and is negative except for what is stated in the HPI. Nursing and ancillary documentation was reviewed. [facility] Past Medical History Medical History COPD (chronic obstructive pulmonary disease) Depression Heart attack Hyperlipidemia Hypertension Nephrolithiasis Surgical History Surgical History History of coronary artery stent placement Family History Family History Father Cancer Mother Acute myocardial infarction Social History Social History Smoking packs per day: 1 Smoking cigarettes per day: 20.0 Years smoked: 50 Smoking pack-years: 50.00 Smoking status: Current every day smoker Tobacco type: cigarettes Alcohol intake: former Substance use: never Gender identity (if verbalized by the patient): Female Spiritual care concerns: No Exam Narrative: Exam Narrative: GENERAL: Well-appearing, well-nourished, and in no acute distress. HEAD: Normocephalic, atraumatic. EYES: PERRLA and EOMI. ENT: Nares clear, no rhinorrhea or epistaxis. Mucous membranes moist. NECK: Supple. CHEST: Clear to auscultation. No respiratory distress. HEART: Regular rate and rhythm. No murmur heard. Normal peripheral pulses. ABDOMEN: Soft, nontender, nondistended, normal active bowel sounds. : Patient was guaiac negative EXTREMITIES: Normal range of motion. 3+ edema. SKIN: Warm, dry, no rash. NEURO: No focal deficits. Alert and oriented x3. PSYCH: Normal mood and affect. Course Vital Signs Vital signs: Vital Signs Temperature 36.6 C 04/14/21 20:07 Pulse Rate 101 H 04/14/21 20:07 Respiratory Rate 14 04/14/21 20:07 Blood Pressure 121/62 04/14/21 20:07 Pulse Oximetry 92 04/14/21 20:07 Temperature 36.8 C 04/14/21 23:03 Pulse Rate 92 04/14/21 23:34 Respiratory Rate 22 H 04/14/21 23:34 Blood Pressure 116/69 04/14/21 23:34 Pulse Oximetry 100 04/14/21 23:34 Medical Decision Making Vital Signs Vital Signs: Vital Signs Temperature 36.6 C 04/14/21 20:07 Pulse
[2021-04-14] MEDS: FUROSEMIDE INJ 40 MG/4 ML VIAL IV PUSH (23:32)
[2021-04-14 23:34] VITALS: BP 116/69; PULSE 92; RESP 22; O2SAT 100
[2021-04-14 23:39] LABS: INR 1.3; Prothrombin Time 16.3 Seconds (11.1-14.7)
[2021-04-14 23:40] LABS: Partial Thromboplastin Time 32.3 SECONDS (22.3-36.8)
[2021-04-15] VITALS (12 sets, daily range): BP systolic 100–108; BP diastolic 58–64; PULSE 79–95; RESP 16–20; TEMP 36.3–36.8; O2SAT 96–100; BMI 32.8
--- NOTE | 2021-04-15 00:55 | PC.NURSE ---
This patient, Monica Rangel, was admitted to [facility] Surg Room 307-01. Patient/family oriented to hospital policies and general routines including ID bracelet, bed and alarms, visiting hours, pain management, procedures, bathroom and other care routines, personal items, smoking policy, room service/diet, and visiting hours. Information on how to activate the Rapid Response Team has been discussed. Patient/Family are encouraged to report perceived risks to care and to ask questions if they do not understand what they are told or what they should do.
[2021-04-15] MEDS: FUROSEMIDE INJ 40 MG/4 ML VIAL IV PUSH ×2 (08:55→20:44)
--- NOTE | 2021-04-15 13:28 | PM.IMHP ---
H&P: HPI History of Present Illness Date/Time: 04/15/21 13:28 Chief Complaint: Admitted with dyspnea Narrative: 70-year-old female with history of hypertension hyperlipidemia and coronary artery disease. Pt has been feeling SOB on exertion. HR is high and feels SOB. Pt is a known patient to Dr Gupta. Pt sees Dr Malcolm as PCP. Pt denies chest pain. Pt has had alot of swelling of her legs. Cxr shows pulmonary edema and cardiomegaly. Echo reviewed. Pts Ef is 65-70%. kidney function is NL sodium is 128. Review of Systems Review of Systems: All systems reviewed & are unremarkable except as noted in HPI and below PMFSH Past Medical History Medical History COPD (chronic obstructive pulmonary disease) Depression Heart attack Hyperlipidemia Hypertension Nephrolithiasis Surgical History Surgical History History of coronary artery stent placement Family History Family History Father Cancer Mother Acute myocardial infarction Social History Social History Smoking packs per day: 0.5 Smoking cigarettes per day: 10.0 Years smoked: 50 Smoking pack-years: 25.00 Smoking status: Current every day smoker Tobacco type: cigarettes Alcohol intake: never Substance use: never Gender identity (if verbalized by the patient): Female Spiritual care concerns: No Meds Home Medications and Allergies Home Medications Medication Instructions Recorded Confirmed Type nebulizer and compressor [Comp-Air #1 ea 09/09/20 04/15/21 Rx Nebulizer Compressor] Stiolto Respimat 1 inh INHALATION BID 01/10/21 04/15/21 History potassium chloride 20 meq PO DAILY 30 Days #30 tablet 01/11/21 04/15/21 Rx aspirin 81 mg PO DAILY 04/15/21 04/15/21 History furosemide 40 mg PO EVERY OTHER DAY 04/15/21 04/15/21 History furosemide 80 mg PO EVERY OTHER DAY 04/15/21 04/15/21 History pantoprazole 40 mg PO DAILY 04/15/21 04/15/21 History spironolactone 50 mg PO DAILY 04/15/21 04/15/21 History Allergies Allergy/AdvReac Type Severity Reaction Status Date / Time No Known Allergies Allergy Verified 04/15/21 01:21 Vital Signs Vital Signs - 24 hr 04/14/21 20:07 04/14/21 21:57 04/14/21 23:03 Temperature 36.6 C 36.7 C 36.8 C Pulse Rate 101 H 98 99 Respiratory Rate 14 18 30 H Blood Pressure 121/62 126/99 H 120/73 Pulse Oximetry 92 98 97 04/14/21 23:34 04/15/21 00:55 04/15/21 01:21 Temperature 36.6 C 36.6 C Pulse Rate 92 95 95 Respiratory Rate 22 H 16 16 Blood Pressure 116/69 104/64 104/64 Pulse Oximetry 100 100 04/15/21 01:35 04/15/21 04:00 04/15/21 06:00 Temperature 36.8 C Pulse Rate 92 90 90 Respiratory Rate 16 Blood Pressure 100/62 Pulse Oximetry 96 04/15/21 08:00 04/15/21 10:03 04/15/21 12:00 Temperature Pulse Rate 80 79 Respiratory Rate Blood Pressure Pulse Oximetry 97 Exam Const: General: well developed Nutritional Appearance: well nourished HENMT: Head: normocephalic Eyes: General: appearance normal, both eyes and all related structures Pupils: Equal, round and reactive pupils present Neck: Neck: supple Resp: Effort & Inspection: other (decreased breath sounds BL ) Auscultation: clear to auscultation bilaterally Cardio: Jugular venous distension: no JVD Rhythm: regular rhythm Heart sounds: S1 normal heart sound present and S2 normal heart sound present GI: Inspection: normal to inspection GI Palp: No abdominal tenderness, Yes Soft to palpation and No Tenderness to palpation present (GI) Auscultation: normal bowel sounds Skin: General skin exam: normal color and dry skin Neuro: Cranial nerves: Yes CN's II-XII intact bilaterally and Yes Equal, round and reactive pupils present Cognition (Neuro): normal cognition Speech: normal speech
--- NOTE | 2021-04-15 19:19 | PHAR ---
HOME MEDICATION VERIFIED BY PHARMACY: STIOLTO RESPIMAT (TIOTROPIUM BROMIDE AND OLODATEROL) INHALATION 2.5/2.5 MCG
[2021-04-16] VITALS: PULSE 92
[2021-04-16 04:00] VITALS: PULSE 95
[2021-04-16 06:00] VITALS: BP 108/56; PULSE 91; RESP 18; TEMP 36.3; O2SAT 98
[2021-04-16 07:08] LABS: Anion Gap 7 mmol/L (8-16); Blood Urea Nitrogen 20 mg/dL (7-17); Calcium 8.9 mg/dL (8.4-10.2); Carbon Dioxide 30 mmol/L (22-30); Chloride 93 mmol/L (98-107); Estimated CRCL calculation 45 ml/min; Estimated Glomerular Filt Rate 55; Glucose 102 mg/dL (65-105); Potassium 3.7 mmol/L (3.4-5.0); Sodium 130 mmol/L (137-145)
[2021-04-16 07:13] LABS: NT Pro B Type Natriuretic Pept 10300 pg/mL (5-100)
[2021-04-16 08:00] VITALS: PULSE 90; PULSE 91; RESP 18; O2SAT 98
[2021-04-16] MEDS: ENOXAPARIN 40 MG/0.4 ML SYRINGE SUB-Q (09:10)
[2021-04-16] MEDS: POTASSIUM CHLORIDE 20 MEQ TABLET.ER PO (09:10)
[2021-04-16] MEDS: SPIRONOLACTONE 50 MG TABLET PO (09:10)
[2021-04-16] MEDS: FUROSEMIDE INJ 40 MG/4 ML VIAL IV PUSH ×2 (09:11→21:37)
[2021-04-16] MEDS: PANTOPRAZOLE 40 MG TABLET PO (09:11)
[2021-04-16] MEDS: ASPIRIN 81 MG CHEWABLE TABLET PO (09:11)
[2021-04-16 11:11] LABS: Basophils Percent Auto 0.6 % (0.2-1.2); Eosinophils Absolute Auto 0.1 K/mm3 (0-0.3); Hematocrit 29.7 % (37.0-47.0); Hemoglobin 8.5 g/dL (12.0-15.0); Immature Granulocyte Absolute 0.03 K/mm3 (0.00-0.031); Immature Granulocyte Percent A 0.4 % (0-0.5); Lymphocytes Absolute Auto 1.06 K/mm3 (0.9-3.2); Lymphocytes Percent Auto 15.4 % (18.3-44.2); Mean Corpuscular HGB Conc 28.6 g/dl (32-36); Mean Corpuscular Hemoglobin 17.7 pg (26-34); Mean Corpuscular Volume 61.7 fl (80-100); Mean Platelet Volume 9.5 fl (7.4-10.4); Monocytes Absolute Auto 0.8 K/mm3 (0.1-0.6); Monocytes Percent Auto 11.3 % (2.6-8.5); Neutrophils Absolute Auto 4.9 K/mm3 (1.3-6.7); Neutrophils Percent Auto 71.3 % (45.5-73.1); Platelet Count Result 334 k/mm3 (150-375); Red Blood Count 4.81 M/mm3 (4.2-5.4); Red Cell Distribution Width 20.9 % (11.5-14.5); White Blood Count 6.9 K/mm3 (4.5-10.0)
[2021-04-16 11:22] LABS: Platelet Estimate Adequate (Adequate)
[2021-04-16 11:23] LABS: Anisocytosis 2+ (NORMAL); Hypochromasia 2+ (NORMAL); Microcytosis 2+ (NORMAL); Ovalocytes 1+ (NORMAL); Poikilocytosis 1+ (NORMAL)
[2021-04-16 14:00] VITALS: BP 97/61; PULSE 96; RESP 14; TEMP 36.3; O2SAT 98
--- NOTE | 2021-04-16 14:12 | PM.IMPN ---
Progress Note: A&P Assessment and Plan (1) Acute exacerbation of CHF (congestive heart failure): Qualifiers: Heart failure type: unspecified Qualified Code(s): I50.9 - Heart failure, unspecified Code(s): I50.9 - Heart failure, unspecified Status: Acute Assessment and Plan: Continue to diuresis with iv lasix daily watch kidney function Acute on chronic systolic congestive heart failure Left ventricular systolic function is normal, estimated at 65-70%. 3. There is mildly increased left ventricular wall thickness (2) COPD (chronic obstructive pulmonary disease): Qualifiers: COPD type: unspecified COPD Qualified Code(s): J44.9 - Chronic obstructive pulmonary disease, unspecified Code(s): J44.9 - Chronic obstructive pulmonary disease, unspecified Status: Acute Assessment and Plan: Pt can continue home medications and start on nebulisers here. (3) CAD (coronary artery disease): Qualifiers: Coronary Disease-Associated Artery/Lesion type: [place] artery [place] vs. transplanted heart: [place] heart Associated angina: without angina Qualified Code(s): I25.10 - Atherosclerotic heart disease of [place] coronary artery without angina pectoris Code(s): I25.10 - Atherosclerotic heart disease of [place] coronary artery without angina pectoris Status: Chronic Assessment and Plan: Consult cardiology known patient to cardiology (4) Anemia: Qualifiers: Anemia type: unspecified type Qualified Code(s): D64.9 - Anemia, unspecified Code(s): D64.9 - Anemia, unspecified Status: Acute Assessment and Plan: HB drop from 15 to 8 pt is very concerned wants to discuss with GI denies any GI bleed Subjective Date/time seen: 04/16/21 14:12 Interval history: 70-year-old female with history of hypertension hyperlipidemia and coronary artery disease. Pt has been feeling SOB on exertion. HR is high and feels SOB. Pt is a known patient to Dr Gupta. Doing well on diuresis. Review of Systems Review of Systems: All systems reviewed & are unremarkable except as noted in HPI and below Exam Const: General: well developed Nutritional Appearance: well nourished HENMT: Head: normocephalic Eyes: General: appearance normal, both eyes and all related structures Pupils: Equal, round and reactive pupils present Neck: Neck: supple Chest: Chest palpation & inspection: normal inspection of the chest Resp: Effort & Inspection: other (decreased breath sounds BL ) Auscultation: clear to auscultation bilaterally Cardio: Jugular venous distension: no JVD Rhythm: regular rhythm Heart sounds: S1 normal heart sound present and S2 normal heart sound present GI: Inspection: normal to inspection Auscultation: normal bowel sounds Skin: General skin exam: normal color and dry skin Neuro: Cranial nerves: Yes CN's II-XII intact bilaterally and Yes Equal, round and reactive pupils present Cognition (Neuro): normal cognition Speech: normal speech Motor exam (neuro): 5/5 motor strength present throughout Extrem: General: other (3+ edematous legs to calves ) Psych: Appearance: grossly normal Mental Status: mental status grossly normal Objective Data Vital Signs Vital Signs: Vital Signs - 24 hr 04/15/21 16:00 04/15/21 20:00 04/15/21 22:00 Temperature 36.6 C Pulse Rate 93 87 94 Respiratory Rate 18 Blood Pressure 108/61 Pulse Oximetry 98 04/16/21 00:00 04/16/21 04:00 04/16/21 06:00 Temperature 36.3 C L Pulse Rate 92 95 91 Respiratory Rate 18 Blood Pressure 108/56 L Pulse Oximetry 98 04/16/21 08:00 Temperature Pulse Rate 91 Respiratory Rate 18 Blood Pressure Pulse Oximetry 98 Intake/Output Intake/Output: Intake & Output 04/13/21 04/14/21 04/15/21 04/16/21 23:59 23:59 23:59 23:59 Intake Total 2590 1120 Output Total 3000 2000 Balance -410 -030 Meds/Results Medications: Active
--- NOTE | 2021-04-16 15:17 | PM.CNCAR ---
Assessment and Plan Additional Plan This is a 71-year-old lady with: History of coronary artery disease remote history of percutaneous revascularization of the OM circumflex. She now presents with shortness of breath volume overload and significant microcytic anemia which is markedly different than her hemogram several months ago. She did have an episode of frankly meal a not X 2 low couple of months ago when she was taking Xarelto for just 5 or 6 days. I do not believe she has been anemic previous to this. I am going to recommend continuing her IV furosemide for now as she is improving in response to this. I also will arrange for a transesophageal echocardiogram to fully evaluate her mitral valve regurgitation. He is not known to have any left ventricular systolic function but her mitral valve pathology needs to be accurately characterize. In addition to this I believe she would benefit from gastroenterology consultation since she did describe an episode of melanotic stool couple of months ago and her hemoglobin level is dramatically lower from her baseline and she is now microcytic. Harihs Gupta MD [facility] History of Present Illness History of Present Illness Consult date/time: 04/16/21 15:17 Consult reason: congestive heart failure Reason For Visit: Acute Congestive Heart Failure exacerbation,Anemia Narrative: This is a 71-year-old lady who I know for a number of years with coronary artery disease and who has a recent history of an episode of atrial fibrillation. I am seeing her at the request of the hospitalist because of shortness of breath and lower extremity edema with which she was admitted to the hospital on Monday night. The patient has a history of coronary disease dating back to January of 2005 which he presented with ischemic chest pain and underwent PTCA and stenting of her OM circumflex branch. She has done well since then and has not had any recurrent ischemic chest pain in the interval. Prior to her diagnosis of coronary disease she was a significant cigarette smoker but quit at the time of her diagnosis of CAD. The patient did have an episode of atrial fibrillation that was recognized as an outpatient in December of this year. She was seen in the office and started on beta-jason as well as Xarelto. After 5 or 6 doses of Xarelto she noticed what sounded like amrio melanotic stool with black tarry stool and she was of course told to stop that and follow up in the office. In the office she was back in sinus rhythm but she was reporting some increasing shortness of breath. She was referred to gastroenterology to be seen as an outpatient because of the episode of melanotic stool but that appointment was scheduled for the future and has not yet occurred. She came into the [facility] emergency room on Monday evening with complaints of increasing shortness of breath with modest activity and increasing lower extremity edema. She did have an echocardiogram done here in this hospital in August of 2020 which demonstrated evidence of normal, vigorous looking left ventricular systolic function and also some mitral valve regurgitation with a highly eccentric regurgitant jet. She is not having any chest pain she says that she is breathing noticeably better than she was on Monday when she came into the hospital. She has been getting intravenous furosemide since admission. Electrocardiogram and telemetry shows that she still in sinus rhythm. Review of Systems Constitutional: Constitutional: Reports fatigue Eyes: Eyes: Reports no additional eye complaints ENT: Reports system reviewed and no additional complaints, except as documented Cardiovascular: Cardiovascular: Reports as per HPI Respiratory: Respiratory: Reports as per HPI Gastrointestinal: Gastrointestinal: Reports as per HPI Musculoskeletal: Musculoskeletal: Reports no additional musculoskeletal complaints Integumentary/Breasts: Skin/Breast: Reports system revi
--- NOTE | 2021-04-16 15:36 | WPDGICN ---
Assessment and Plan Assessment and plan (1) Acute exacerbation of CHF (congestive heart failure): Qualifiers: Heart failure type: unspecified Qualified Code(s): I50.9 - Heart failure, unspecified Code(s): I50.9 - Heart failure, unspecified Status: Acute Assessment and Plan: the patient has a history of coronary artery disease dating back to 2004. She has been followed by Dr. Gupta. He is felt that she has mitral regurgitation and this is going to be investigated with JULIET. she also has recently had congestive heart failure. This admission she had a great deal of dependent edema and her dyspnea has been responding to diuretics. (2) Anemia: Qualifiers: Anemia type: unspecified type Qualified Code(s): D64.9 - Anemia, unspecified Code(s): D64.9 - Anemia, unspecified Status: Acute Assessment and Plan: She has never been anemic in the past, and as I mentioned her hemoglobin was over 16 just 3 months ago. She is not aware of any family history of anemia. Her MCV is low suggesting chronic blood loss or, more accurately, iron deficiency. She had never had a colonoscopy although she states that her primary care physician has been trying to get her to do so (3) Blood in stool: Code(s): K92.1 - Melena Status: Acute Assessment and Plan: a 2 months ago when on she did have which she 1st described as black stools and then very dark red. I will schedule her for an EGD and colonoscopy but will defer until after Dr. Gupta to performs his procedure on Monday GI Consult Note Consult date/time: 04/16/21 15:36 HPI: Monica Rangel is a 71 year old female who was admitted here 2 days ago because of shortness of breath. She had been retaining water and having swelling in her extremities. She states that she began having heart problems last August. It is felt that she has cardiac valve problems and the fact she is going to have a T eat on Monday. When she was admitted with shortness of breath this time it was found that her hemoglobin which was over 13 just 3 months ago, is 8.5 now. She actually had hemoglobin of 16.3 in .December. She denies abdominal pain nausea vomiting dysphagia or significant heartburn. She denies a change in her bowel movements except that she recalls having very dark stools that appeared to be somewhat bloody a little more than 2 months ago. This lasted for about 5 days and happened when she was taking Xarelto for short period of time. She is not on NSAIDs, and she is on pantoprazole at this time. She has never had a colonoscopy. She states that her doctor had been encouraging her to do so in fact it was apparently going to be set up a couple of months ago but she never heard back from the specialists office. Review of Systems Review of Systems: All systems reviewed & are unremarkable except as noted in HPI and below PMFSH Past Medical History Medical History COPD (chronic obstructive pulmonary disease) Depression Heart attack Hyperlipidemia Hypertension Nephrolithiasis Surgical History Surgical History History of coronary artery stent placement Family History Family History Father Cancer Mother Acute myocardial infarction Social History Social History Smoking packs per day: 0.5 Smoking cigarettes per day: 10.0 Years smoked: 50 Smoking pack-years: 25.00 Smoking status: Current every day smoker Tobacco type: cigarettes Alcohol intake: never Substance use: never Gender identity (if verbalized by the patient): Female Spiritual care concerns: No Meds Home Medications and Allergies Home Medications Medication Instructions Recorded Confirmed Type nebulizer and compresso
[2021-04-16 17:33] LABS: Iron 16 ug/dL (37-170)
[2021-04-16 17:42] LABS: Percent Iron Saturation 4 % (20-50)
[2021-04-16 22:00] VITALS: BP 128/67; PULSE 86; RESP 18; TEMP 36.2; O2SAT 96
[2021-04-17 05:56] VITALS: BP 94/49; PULSE 98; RESP 20; TEMP 36.3; O2SAT 92
[2021-04-17 08:00] VITALS: PULSE 98; RESP 20; O2SAT 92
[2021-04-17] MEDS: POTASSIUM CHLORIDE 20 MEQ TABLET.ER PO (08:17)
[2021-04-17] MEDS: FUROSEMIDE INJ 40 MG/4 ML VIAL IV PUSH ×2 (08:17→20:35)
[2021-04-17] MEDS: PANTOPRAZOLE 40 MG TABLET PO (08:17)
[2021-04-17] MEDS: ASPIRIN 81 MG CHEWABLE TABLET PO (08:17)
[2021-04-17] MEDS: SPIRONOLACTONE 50 MG TABLET PO (08:18)
[2021-04-17] MEDS: ENOXAPARIN 40 MG/0.4 ML SYRINGE SUB-Q (08:18)
--- NOTE | 2021-04-17 09:40 | PM.PNCARD ---
Progress Note: A&P Additional Plan 71-year-old woman with: Coronary artery disease remote history of stenting of the circumflex no ischemic problems in recent years. She now presents with a picture of congestive heart failure she does have evidence of mitral valve regurgitation on previous echo and on exam. She also is significantly anemic with microcytic indices. Appreciate GI consultation yesterday and plans for endoscopic evaluation will be made following her JULIET. In the meantime we will continue IV furosemide as she is benefitting from it and check her BMP tomorrow Harish Gupta MD [facility] Subjective Date/time seen: Date of service: 04/17/21 09:40 Interval history: Follow-up visit in this 71-year-old lady with: Admission with fluid overload shortness of breath and new diagnosis of relatively severe microcytic anemia and concern regarding significant mitral valve regurgitation. Patient has a remote history of PCI to the OM circumflex branch. She is feeling much better this morning she has been diuresed now for couple of days with IV furosemide. Still has moderate lower extremity edema but no longer appears to be short of breath. Had questions regarding plans for JULIET on Monday these were discussed and answered in detail Exam Const: General: comfortable and no acute distress Other: Pleasant white female no apparent distress HENMT: Mouth: Yes moist mucous membranes Eyes: Sclera: sclerae normal Pupils: Equal, round and reactive pupils present Neck: Neck: supple and no JVD Thyroid: thyroid normal Resp: Effort & Inspection: normal respiratory effort Auscultation: clear to auscultation bilaterally Cardio: Rate: regular rate Rhythm: regular rhythm Other: Grade 2/6 holosystolic MR murmur audible at the left sternal border and the apex. GI: GI Palp: Yes Soft to palpation Auscultation: normal bowel sounds Skin: General skin exam: normal color Neuro: Cognition (Neuro): normal cognition Extrem: Other: Moderate symmetrical bilateral pitting edema noted Objective Data Vital Signs Vital Signs: Vital Signs - 24 hr 04/16/21 14:00 04/16/21 22:00 04/17/21 05:56 Temperature 36.3 C L 36.2 C L 36.3 C L Pulse Rate 96 86 98 Respiratory Rate 14 18 20 Blood Pressure 97/61 L 128/67 94/49 L Pulse Oximetry 98 96 92 04/17/21 08:00 Temperature Pulse Rate 98 Respiratory Rate 20 Blood Pressure Pulse Oximetry 92 Intake/Output Intake/Output: Intake & Output 04/14/21 04/15/21 04/16/21 04/17/21 23:59 23:59 23:59 23:59 Intake Total 2590 2610 880 Output Total 3000 3600 1400 Balance -410 -990 -520 Meds/Results Medications: Active Medications Generic Name Dose Route Start Last Admin Trade Name Iraj PRN Reason Stop Dose Admin Aspirin 81 mg 04/16/21 08:00 04/17/21 08:17 Aspirin 81 Mg Chewable Tablet PO 81 mg DAILY@0800 MADELINE Administration Enoxaparin Sodium 40 mg 04/16/21 09:00 04/17/21 08:18 Enoxaparin 40 Mg/0.4 Ml Syringe SUB-Q 40 mg DAILY MADELINE Administration Furosemide 40 mg 04/15/21 09:00 04/17/21 08:17 Furosemide Inj 40 Mg/4 Ml Vial IV PUSH 40 mg Q12HR MADELINE Administration Pantoprazole Sodium 40 mg 04/16/21 09:00 04/17/21 08:17 Pantoprazole 40 Mg Tablet PO 40 mg DAILY MADELINE Administration Potassium Chloride 20 meq 04/16/21 09:00 04/17/21 08:17 Potassium Chloride 20 Meq Tablet.Er PO 20 meq DAILY MADELINE Administration Spironolactone 50 mg 04/16/21 09:00 04/17/21 08:18 Spironolactone 50 Mg Tablet PO 50 mg DAILY MADELINE Administration Radiology Results: ITS Impressions Chest X-Ray 04/14/21 20:31 IMPRESSION: Large cardiophrenic silhouette which may be due to cardiomegaly and/or pericardial effusion Pulmonary vascular redistribution may indicate mild pulmonary venous hypertension Aortic atherosclerosis Moderate hyperinflation; no active pulmonary disease Labs Labs: Laboratory Results - last 24 hr 04/16/21 04/16/21 1
--- NOTE | 2021-04-17 12:50 | PM.IMPN ---
Progress Note: A&P Assessment and Plan (1) Acute exacerbation of CHF (congestive heart failure): Qualifiers: Heart failure type: unspecified Qualified Code(s): I50.9 - Heart failure, unspecified Code(s): I50.9 - Heart failure, unspecified Status: Acute Assessment and Plan: Continue to diuresis with iv lasix daily watch kidney function Acute on chronic systolic congestive heart failure Left ventricular systolic function is normal, estimated at 65-70%. 3. There is mildly increased left ventricular wall thickness Pt will benefit from JULIET. (2) COPD (chronic obstructive pulmonary disease): Qualifiers: COPD type: unspecified COPD Qualified Code(s): J44.9 - Chronic obstructive pulmonary disease, unspecified Code(s): J44.9 - Chronic obstructive pulmonary disease, unspecified Status: Acute Assessment and Plan: Pt can continue home medications and start on nebulisers here. (3) CAD (coronary artery disease): Qualifiers: Coronary Disease-Associated Artery/Lesion type: [place] artery [place] vs. transplanted heart: [place] heart Associated angina: without angina Qualified Code(s): I25.10 - Atherosclerotic heart disease of [place] coronary artery without angina pectoris Code(s): I25.10 - Atherosclerotic heart disease of [place] coronary artery without angina pectoris Status: Chronic Assessment and Plan: Consult cardiology known patient to cardiology. (4) Anemia: Qualifiers: Anemia type: unspecified type Qualified Code(s): D64.9 - Anemia, unspecified Code(s): D64.9 - Anemia, unspecified Status: Acute Assessment and Plan: pt is going to have EGD and colonoscopy soon Subjective Date/time seen: 04/17/21 12:50 Interval history: 70-year-old female with history of hypertension hyperlipidemia and coronary artery disease. Pt has been feeling SOB on exertion. HR is high and feels SOB. Pt is a known patient to Dr Gupta. Pt to have JULIET on monday and EGD and colonscopy soon after. Review of Systems Review of Systems: All systems reviewed & are unremarkable except as noted in HPI and below Exam Const: General: well developed Nutritional Appearance: well nourished HENMT: Head: normocephalic Eyes: General: appearance normal, both eyes and all related structures Pupils: Equal, round and reactive pupils present Neck: Neck: supple Chest: Chest palpation & inspection: normal inspection of the chest Resp: Effort & Inspection: other (decreased breath sounds BL ) Auscultation: clear to auscultation bilaterally Cardio: Jugular venous distension: no JVD Rhythm: regular rhythm Heart sounds: S1 normal heart sound present and S2 normal heart sound present GI: Inspection: normal to inspection Auscultation: normal bowel sounds Skin: General skin exam: normal color and dry skin Neuro: Cranial nerves: Yes CN's II-XII intact bilaterally and Yes Equal, round and reactive pupils present Cognition (Neuro): normal cognition Speech: normal speech Motor exam (neuro): 5/5 motor strength present throughout Extrem: General: other (3+ edematous legs to calves ) Psych: Appearance: grossly normal Mental Status: mental status grossly normal Objective Data Vital Signs Vital Signs: Vital Signs - 24 hr 04/16/21 14:00 04/16/21 22:00 04/17/21 05:56 Temperature 36.3 C L 36.2 C L 36.3 C L Pulse Rate 96 86 98 Respiratory Rate 14 18 20 Blood Pressure 97/61 L 128/67 94/49 L Pulse Oximetry 98 96 92 04/17/21 08:00 Temperature Pulse Rate 98 Respiratory Rate 20 Blood Pressure Pulse Oximetry 92 Intake/Output Intake/Output: Intake & Output 04/14/21 04/15/21 04/16/21 04/17/21 23:59 23:59 23:59 23:59 Intake Total 2590 2610 880 Output Total 3000 3600 1400 Balance -410 -990 -520 Meds/Results Medications: Active Medications Generic Name Dose Route Start Last Admin Trade Name Freq PRN Reason Stop
[2021-04-17 14:00] VITALS: BP 98/53; PULSE 92; RESP 16; TEMP 36.5; O2SAT 98
[2021-04-17 21:50] VITALS: O2SAT 97
[2021-04-17 22:00] VITALS: BP 94/57; PULSE 94; RESP 18; TEMP 36.9; O2SAT 96
[2021-04-18 06:00] VITALS: BP 73/53; PULSE 76; RESP 20; TEMP 36.6; O2SAT 95
[2021-04-18 06:46] LABS: Anion Gap 7 mmol/L (8-16); Blood Urea Nitrogen 19 mg/dL (7-17); Calcium 9.2 mg/dL (8.4-10.2); Carbon Dioxide 31 mmol/L (22-30); Chloride 94 mmol/L (98-107); Estimated CRCL calculation 38 ml/min; Estimated Glomerular Filt Rate 44; Glucose 107 mg/dL (65-105); Potassium 3.8 mmol/L (3.4-5.0); Sodium 132 mmol/L (137-145)
[2021-04-18 08:00] VITALS: PULSE 76; RESP 20; O2SAT 95
--- NOTE | 2021-04-18 08:40 | WPDGIPROGNO ---
Progress Note: A&P Assessment and Plan (1) Acute exacerbation of CHF (congestive heart failure): Qualifiers: Heart failure type: unspecified Qualified Code(s): I50.9 - Heart failure, unspecified Code(s): I50.9 - Heart failure, unspecified Status: Acute Assessment and Plan: the patient has a history of coronary artery disease dating back to 2004. She has been followed by Dr. Gupta. He is felt that she has mitral regurgitation and this is going to be investigated with JULIET. she also has recently had congestive heart failure. This admission she had a great deal of dependent edema and her dyspnea has been responding to diuretics. history alone she had over 5 L of output. (2) Anemia: Qualifiers: Anemia type: unspecified type Qualified Code(s): D64.9 - Anemia, unspecified Code(s): D64.9 - Anemia, unspecified Status: Acute Assessment and Plan: She has never been anemic in the past, and as I mentioned her hemoglobin was over 16 just 3 months ago. She is not aware of any family history of anemia. Her MCV is low suggesting chronic blood loss or, more accurately, iron deficiency. She had never had a colonoscopy although she states that her primary care physician has been trying to get her to do so . We will do that Monday (3) Blood in stool: Code(s): K92.1 - Melena Status: Acute Assessment and Plan: 2 months ago when on Xarelto she did have what she 1st described as black stools and then very dark red. I will schedule her for an EGD and colonoscopy but will defer until after Dr. Gupta to performs his procedure on Monday Subjective Date/time seen: 04/18/21 08:40 Interval history: 70-year-old female with history of hypertension hyperlipidemia and coronary artery disease. Pt has been feeling SOB on exertion. HR is high and feels SOB. Pt is a known patient to Dr Gupta. Pt to have JULIET on monday and EGD and colonscopy Monday. Review of Systems Review of Systems: All systems reviewed & are unremarkable except as noted in HPI and below Exam Const: General: cooperative, comfortable and alert Resp: Effort & Inspection: audible wheezes ( barely audible wheezing on expiration today) and no respiratory distress GI: Inspection: normal to inspection GI Palp: No abdominal tenderness and Yes Soft to palpation Objective Data Vital Signs Vital Signs: Vital Signs - 24 hr 04/17/21 14:00 04/17/21 21:50 04/17/21 22:00 Temperature 36.5 C 36.9 C Pulse Rate 92 94 Respiratory Rate 16 18 Blood Pressure 98/53 L 94/57 L Pulse Oximetry 98 97 96 04/18/21 06:00 Temperature 36.6 C Pulse Rate 76 Respiratory Rate 20 Blood Pressure 73/53 L Pulse Oximetry 95 Intake/Output Intake/Output: Intake & Output 04/15/21 04/16/21 04/17/21 04/18/21 23:59 23:59 23:59 23:59 Intake Total 2590 2610 2860 550 Output Total 3000 3600 5400 1500 Balance -410 990 -6500 -950 Meds/Results Medications: Active Medications Generic Name Dose Route Start Last Admin Trade Name Freq PRN Reason Stop Dose Admin Aspirin 81 mg 04/16/21 08:00 04/17/21 08:17 Aspirin 81 Mg Chewable Tablet PO 81 mg DAILY@0800 MADELINE Administration Enoxaparin Sodium 40 mg 04/16/21 09:00 04/17/21 08:18 Enoxaparin 40 Mg/0.4 Ml Syringe SUB-Q 40 mg DAILY MADELINE Administration Furosemide 40 mg 04/15/21 09:00 04/17/21 20:35 Furosemide Inj 40 Mg/4 Ml Vial IV PUSH 40 mg Q12HR MADELINE Administration Pantoprazole Sodium 40 mg 04/16/21 09:00 04/17/21 08:17 Pantoprazole 40 Mg Tablet PO 40 mg DAILY MADELINE Administration Potassium Chloride 20 meq 04/16/21 09:00 04/17/21 08:17 Potassium Chloride 20 Meq Tablet.Er PO 20 meq DAILY MADELINE Administration Spironolactone 50 mg 04/16/21 09:00 04/17/21 08:18 Spironolactone 50 Mg Tablet PO 50 mg DAILY MADELINE Administration Radiology Results: ITS Impressions Chest X-Ray
[2021-04-18] MEDS: SPIRONOLACTONE 50 MG TABLET PO (08:44)
[2021-04-18] MEDS: PANTOPRAZOLE 40 MG TABLET PO (08:44)
[2021-04-18] MEDS: ENOXAPARIN 40 MG/0.4 ML SYRINGE SUB-Q (08:44)
[2021-04-18] MEDS: ASPIRIN 81 MG CHEWABLE TABLET PO (08:44)
[2021-04-18] MEDS: POTASSIUM CHLORIDE 20 MEQ TABLET.ER PO (08:44)
[2021-04-18 08:56] VITALS: BP 88/47
--- NOTE | 2021-04-18 12:05 | PM.PNCARD ---
Progress Note: A&P Additional Plan 71-year-old female with: Mitral valve regurgitation suspicious she may have significant MR since by echo her MR jet was highly eccentric and at least moderate in severity. Because of her symptoms we are going to proceed with JULIET tomorrow morning. Following that she will undergo endoscopic evaluation because of new severe microcytic anemia as well. Harish Gupta MD [facility] Subjective Date/time seen: Date of service: 04/18/21 12:05 Interval history: Follow-up visit in this 71-year-old lady with: Admission with fluid overload shortness of breath and new diagnosis of relatively severe microcytic anemia and concern regarding significant mitral valve regurgitation. Patient has a remote history of PCI to the OM circumflex branch. Patient has been transferred up to 3rd floor. Remains asymptomatic and doing well shortness of breath has been resolved with diuresis. Plans for esophageal echo tomorrow morning were discussed again with the patient and her . Following that procedure she is going to start bowel prep for upper and lower endoscopy to investigate significant microcytic anemia. Exam Const: General: comfortable and no acute distress Other: Pleasant white female no apparent distress HENMT: Mouth: Yes moist mucous membranes Eyes: Sclera: sclerae normal Pupils: Equal, round and reactive pupils present Neck: Neck: supple and no JVD Thyroid: thyroid normal Resp: Effort & Inspection: normal respiratory effort Auscultation: clear to auscultation bilaterally Other: Scant basilar crackles noted, no wheezing Cardio: Rate: regular rate Rhythm: regular rhythm Other: Grade 2/6 holosystolic MR murmur audible at the left sternal border and the apex. GI: Auscultation: normal bowel sounds Urinary Catheter: Urinary Catheter: patent and draining Skin: General skin exam: normal color Neuro: Cranial nerves: Yes Equal, round and reactive pupils present Cognition (Neuro): normal cognition Extrem: Other: Moderate symmetrical bilateral pitting edema noted Objective Data Vital Signs Vital Signs: Vital Signs - 24 hr 04/17/21 14:00 04/17/21 21:50 04/17/21 22:00 Temperature 36.5 C 36.9 C Pulse Rate 92 94 Respiratory Rate 16 18 Blood Pressure 98/53 L 94/57 L Pulse Oximetry 98 97 96 04/18/21 06:00 04/18/21 08:00 04/18/21 08:56 Temperature 36.6 C Pulse Rate 76 76 Respiratory Rate 20 20 Blood Pressure 73/53 L 88/47 L Pulse Oximetry 95 95 Intake/Output Intake/Output: Intake & Output 04/15/21 04/16/21 04/17/21 04/18/21 23:59 23:59 23:59 23:59 Intake Total 2590 2610 2860 790 Output Total 3000 3600 5400 1500 Balance -410 -990 -2540 -710 Meds/Results Medications: Active Medications Generic Name Dose Route Start Last Admin Trade Name Iraj PRN Reason Stop Dose Admin Aspirin 81 mg 04/16/21 08:00 04/18/21 08:44 Aspirin 81 Mg Chewable Tablet PO 81 mg DAILY@0800 MADELINE Administration Enoxaparin Sodium 40 mg 04/16/21 09:00 04/18/21 08:44 Enoxaparin 40 Mg/0.4 Ml Syringe SUB-Q 40 mg DAILY MADELINE Administration Furosemide 40 mg 04/15/21 09:00 04/18/21 11:44 Furosemide Inj 40 Mg/4 Ml Vial IV PUSH Not Given Q12HR MADELINE Pantoprazole Sodium 40 mg 04/16/21 09:00 04/18/21 08:44 Pantoprazole 40 Mg Tablet PO 40 mg DAILY MADELINE Administration Potassium Chloride 20 meq 04/16/21 09:00 04/18/21 08:44 Potassium Chloride 20 Meq Tablet.Er PO 20 meq DAILY MADELINE Administration Spironolactone 50 mg 04/16/21 09:00 04/18/21 08:44 Spironolactone 50 Mg Tablet PO 50 mg DAILY MADELINE Administration Radiology Results: ITS Impressions Chest X-Ray 04/14/21 20:31 IMPRESSION: Large cardiophrenic silhouette which may be due to cardiomegaly and/or pericardial effusion Pulmonary vascular redistribution may indicate mild pulmonary venous hypertension Aortic atherosclerosis Moderate hyperinflation; no active pulmonary disease
[2021-04-18 14:00] VITALS: BP 114/43; PULSE 82; RESP 16; TEMP 36.8; O2SAT 98
--- NOTE | 2021-04-18 14:17 | PM.IMPN ---
Progress Note: A&P Assessment and Plan (1) Acute exacerbation of CHF (congestive heart failure): Qualifiers: Heart failure type: unspecified Qualified Code(s): I50.9 - Heart failure, unspecified Code(s): I50.9 - Heart failure, unspecified Status: Acute Assessment and Plan: Continue to diuresis with iv lasix daily watch kidney function Acute on chronic systolic congestive heart failure Left ventricular systolic function is normal, estimated at 65-70%. 3. There is mildly increased left ventricular wall thickness Pt will benefit from JULIET. (2) COPD (chronic obstructive pulmonary disease): Qualifiers: COPD type: unspecified COPD Qualified Code(s): J44.9 - Chronic obstructive pulmonary disease, unspecified Code(s): J44.9 - Chronic obstructive pulmonary disease, unspecified Status: Acute Assessment and Plan: Pt can continue home medications and start on nebulisers here. (3) CAD (coronary artery disease): Qualifiers: Coronary Disease-Associated Artery/Lesion type: [place] artery [place] vs. transplanted heart: [place] heart Associated angina: without angina Qualified Code(s): I25.10 - Atherosclerotic heart disease of [place] coronary artery without angina pectoris Code(s): I25.10 - Atherosclerotic heart disease of [place] coronary artery without angina pectoris Status: Chronic Assessment and Plan: Consult cardiology known patient to cardiology. (4) Anemia: Qualifiers: Anemia type: unspecified type Qualified Code(s): D64.9 - Anemia, unspecified Code(s): D64.9 - Anemia, unspecified Status: Acute Assessment and Plan: pt is going to have EGD and colonoscopy on monday. Subjective Date/time seen: 04/18/21 14:17 Interval history: 70-year-old female with history of hypertension hyperlipidemia and coronary artery disease. Pt has been feeling SOB on exertion. HR is high and feels SOB. Pt is a known patient to Dr Gupta. Pt to have JULIET on monday and EGD and colonscopy soon after. Review of Systems Review of Systems: All systems reviewed & are unremarkable except as noted in HPI and below Exam Const: General: well developed Nutritional Appearance: well nourished HENMT: Head: normocephalic Eyes: General: appearance normal, both eyes and all related structures Pupils: Equal, round and reactive pupils present Neck: Neck: supple Chest: Chest palpation & inspection: normal inspection of the chest Resp: Effort & Inspection: other (decreased breath sounds BL ) Auscultation: clear to auscultation bilaterally Cardio: Jugular venous distension: no JVD Rhythm: regular rhythm Heart sounds: S1 normal heart sound present and S2 normal heart sound present GI: Inspection: normal to inspection Auscultation: normal bowel sounds Skin: General skin exam: normal color and dry skin Neuro: Cranial nerves: Yes CN's II-XII intact bilaterally and Yes Equal, round and reactive pupils present Cognition (Neuro): normal cognition Speech: normal speech Motor exam (neuro): 5/5 motor strength present throughout Extrem: General: other (3+ edematous legs to calves ) Psych: Appearance: grossly normal Mental Status: mental status grossly normal Objective Data Vital Signs Vital Signs: Vital Signs - 24 hr 04/17/21 21:50 04/17/21 22:00 04/18/21 06:00 Temperature 36.9 C 36.6 C Pulse Rate 94 76 Respiratory Rate 18 20 Blood Pressure 94/57 L 73/53 L Pulse Oximetry 97 96 95 04/18/21 08:00 04/18/21 08:56 Temperature Pulse Rate 76 Respiratory Rate 20 Blood Pressure 88/47 L Pulse Oximetry 95 Intake/Output Intake/Output: Intake & Output 04/15/21 04/16/21 04/17/21 04/18/21 23:59 23:59 23:59 23:59 Intake Total 2590 2610 2860 790 Output Total 3000 3600 5400 1500 Balance -410 -990 -2540 -710 Meds/Results Medications: Active Medications Generic Name Dose Route Start Last Admin Trade N
[2021-04-18 21:51] VITALS: BP 98/63; PULSE 96; RESP 20; TEMP 36.8; O2SAT 96
[2021-04-19] VITALS (14 sets, daily range): BP systolic 77–126; BP diastolic 42–81; PULSE 84–106; RESP 16–26; TEMP 36.4–36.7; O2SAT 92–100
--- NOTE | 2021-04-19 | ECHO_ITS ---
Patient Info Name: Monica Rangel Age: 71 years : 1950 Gender: Female Ht: 62 in Wt: 179 lbs BSA: 1.92 m2 HR: 110 bpm Heart Rhythm: Sinus Rhythm Technical Quality: Good Exam Date: 04/19/2021 10:58 AM Exam Location: [facility] Patient Status: Inpatient Admit Date: 04/16/2021 Staff Ordering Physician: Harish Gupta MD Wire Strander: Zac Trotter RDCS, RT Attending Provider: Brynn Yan DO Referring Physician: Alonso BEE; Exam Type: CA echo transesophageal Study Info Indications I34.8 - Other nonrheumatic mitral valve disorders Complete two-dimensional, color flow and Doppler transesophageal study is performed. Summary 1. Mild left ventricular enlargement with systolic dysfunction more pronounced in the lateral. EF 40-45%. 2. Normal mitral valve leaflets with no disrupted chordal structure. 3. Evidence of posterior papillary muscle dysfunction with malcoaptation and significant eccentric jet of MR. Report Signatures
[2021-04-19] MEDS: ENOXAPARIN 40 MG/0.4 ML SYRINGE SUB-Q (09:15)
--- NOTE | 2021-04-19 10:20 | WPDGIPROGNO ---
Progress Note: A&P Assessment and Plan (1) Blood in stool: Code(s): K92.1 - Melena Status: Acute Assessment and Plan: we tentatively have her scheduled for EGD and colonoscopy to be done tomorrow morning. I discussed with her the possible findings, such as angiodysplasia which we can cauterize, polyps which we would be able to remove. Hopefully not cancer which we would biopsy. She stated that she does have dysphagia at times and feels as though things like meat or bread do not want to go down past her neck. I told her that if we find a stricture we can dilated and discussed how that is done (2) CAD (coronary artery disease): Qualifiers: Coronary Disease-Associated Artery/Lesion type: [place] artery [place] vs. transplanted heart: [place] heart Associated angina: without angina Qualified Code(s): I25.10 - Atherosclerotic heart disease of [place] coronary artery without angina pectoris Code(s): I25.10 - Atherosclerotic heart disease of [place] coronary artery without angina pectoris Status: Chronic Assessment and Plan: cardiac testing to be done this morning. Assuming that we are okay to proceed with endoscopy, then we will do that tomorrow morning Time Spent With Patient Time with patient: 15 - 25 minutes Subjective Date/time seen: 04/19/21 10:20 she is waiting to be picked up for her cardiac testing, transesophageal echocardiogram Review of Systems Review of Systems: All systems reviewed & are unremarkable except as noted in HPI and below Exam Const: General: Physically active GI: GI Palp: No abdominal tenderness and Yes Soft to palpation Auscultation: normal bowel sounds Objective Data Vital Signs Vital Signs: Vital Signs - 24 hr 04/18/21 14:00 04/18/21 21:51 04/19/21 05:57 Temperature 36.8 C 36.8 C 36.7 C Pulse Rate 82 96 84 Respiratory Rate 16 20 20 Blood Pressure 114/43 L 98/63 L 77/42 L Pulse Oximetry 98 96 95 04/19/21 08:03 Temperature 36.4 C Pulse Rate 88 Respiratory Rate Blood Pressure 91/51 L Pulse Oximetry 99 Intake/Output Intake/Output: Intake & Output 04/16/21 04/17/21 04/18/21 04/19/21 23:59 23:59 23:59 23:59 Intake Total 2610 2860 2770 500 Output Total 3600 5400 4500 1300 Balance -990 -2540 -1730 -800 Meds/Results Medications: Active Medications Generic Name Dose Route Start Last Admin Trade Name Iraj PRN Reason Stop Dose Admin Aspirin 81 mg 04/16/21 08:00 04/18/21 08:44 Aspirin 81 Mg Chewable Tablet PO 81 mg DAILY@0800 MADELINE Administration Bisacodyl 10 mg 04/19/21 19:00 Bisacodyl 5 Mg Tablet Ec PO 04/19/21 19:01 ONCE ONE Enoxaparin Sodium 40 mg 04/16/21 09:00 04/19/21 09:15 Enoxaparin 40 Mg/0.4 Ml Syringe SUB-Q 40 mg DAILY MADELINE Administration Furosemide 40 mg 04/15/21 09:00 04/18/21 20:26 Furosemide Inj 40 Mg/4 Ml Vial IV PUSH Not Given Q12HR MADELINE Magnesium Citrate 150 ml 04/20/21 03:00 Magnesium Citrate 300 Ml Btl PO 04/20/21 03:01 ONCE ONE Pantoprazole Sodium 40 mg 04/16/21 09:00 04/18/21 08:44 Pantoprazole 40 Mg Tablet PO 40 mg DAILY MADELINE Administration Polyethylene Glycol 238 gm 04/19/21 15:00 Polyethylene Glycol 3350 238 Gm Bottle PO 04/19/21 15:01 ONCE ONE Potassium Chloride 20 meq 04/16/21 09:00 04/18/21 08:44 Potassium Chloride 20 Meq Tablet.Er PO 20 meq DAILY MADELINE Administration Spironolactone 50 mg 04/16/21 09:00 04/18/21 08:44 Spironolactone 50 Mg Tablet PO 50 mg DAILY MADELINE Administration Radiology Results: ITS Impressions Chest X-Ray 04/14/21 20:31 IMPRESSION: Large cardiophrenic silhouette which may be due to cardiomegaly and/or pericardial effusion Pulmonary vascular redistribution may indicate mild pulmonary venous hypertension Aortic atherosclerosis Moderate hyperinflation; no active pulmonary disease
--- NOTE | 2021-04-19 10:55 | WPDMODSED ---
Moderate Sedation Note-Pt Data Patient Data Diagnosis: Mitral valve regurgitation with congestive heart Coronary artery disease with previous PCI to circumflex Microcytic anemia Present Complaint: Shortness of breath/ edema Procedure to be performed/Plan: Transesophageal echocardiogram Allergies Allergy/AdvReac Type Severity Reaction Status Date / Time No Known Allergies Allergy Verified 04/15/21 01:21 Home Medications Medication Instructions Recorded Confirmed Type nebulizer and compressor [Comp-Air #1 ea 09/09/20 04/15/21 Rx Nebulizer Compressor] Stiolto Respimat 1 inh INHALATION BID 01/10/21 04/15/21 History potassium chloride 20 meq PO DAILY 30 Days #30 tablet 01/11/21 04/15/21 Rx aspirin 81 mg PO DAILY 04/15/21 04/15/21 History furosemide 40 mg PO EVERY OTHER DAY 04/15/21 04/15/21 History furosemide 80 mg PO EVERY OTHER DAY 04/15/21 04/15/21 History pantoprazole 40 mg PO DAILY 04/15/21 04/15/21 History spironolactone 50 mg PO DAILY 04/15/21 04/15/21 History Current Medications: Active Medications Aspirin (Aspirin 81 Mg Chewable Tablet) 81 mg PO DAILY@0800 [facility] Last Admin: 04/18/21 08:44 Dose: 81 mg Documented by: Bisacodyl (Bisacodyl 5 Mg Tablet Ec) 10 mg PO ONCE ONE Stop: 04/19/21 19:01 Enoxaparin Sodium (Enoxaparin 40 Mg/0.4 Ml Syringe) 40 mg SUB-Q DAILY [facility] Last Admin: 04/19/21 09:15 Dose: 40 mg Documented by: Furosemide (Furosemide Inj 40 Mg/4 Ml Vial) 40 mg IV PUSH Q12HR [facility] Last Admin: 04/18/21 20:26 Dose: Not Given Documented by: Magnesium Citrate (Magnesium Citrate 300 Ml Btl) 150 ml PO ONCE ONE Stop: 04/20/21 03:01 Pantoprazole Sodium (Pantoprazole 40 Mg Tablet) 40 mg PO DAILY [facility] Last Admin: 04/18/21 08:44 Dose: 40 mg Documented by: Polyethylene Glycol (Polyethylene Glycol 3350 238 Gm Bottle) 238 gm PO ONCE ONE Stop: 04/19/21 15:01 Potassium Chloride (Potassium Chloride 20 Meq Tablet.Er) 20 meq PO DAILY [facility] Last Admin: 04/18/21 08:44 Dose: 20 meq Documented by: Spironolactone (Spironolactone 50 Mg Tablet) 50 mg PO DAILY [facility] Last Admin: 04/18/21 08:44 Dose: 50 mg Documented by: Sedation/Anesthesia: No previous sedation/anesthesia problems (including family history). [facility] [place] Past Medical History Medical History COPD (chronic obstructive pulmonary disease) Depression Heart attack Hyperlipidemia Hypertension Nephrolithiasis Surgical History Surgical History History of coronary artery stent placement Family History Family History Father Cancer Mother Acute myocardial infarction Social History Social History Smoking packs per day: 0.5 Smoking cigarettes per day: 10.0 Years smoked: 50 Smoking pack-years: 25.00 Smoking status: Current every day smoker Tobacco type: cigarettes Alcohol intake: never Substance use: never Gender identity (if verbalized by the patient): Female Spiritual care concerns: No Mod Sed Physical Exam Physical Exam Pre Procedural Exam: Normal: Nose, Neck, Throat, Airway, Lungs, Heart Size, Heart Rate (Grade 2/6 holosystolic MR murmur at the apex), Heart Rhythm and Extremities (2+ lower extremity edema) Hours since solid foods: 12 Hours since liquid intake: 12 Internal Medicine - PN: Obj Da Vital Signs Vital Signs: Vital Signs - 24 hr 04/18/21 14:00 04/18/21 21:51 04/19/21 05:57 Temperature 36.8 C 36.8 C 36.7 C Pulse Rate 82 96 84 Respiratory Rate 16 20 20 Blood Pressure 114/43 L 98/63 L 77/42 L Pulse Oximetry 98 96 95 04/19/21 08:03 Temperature 36.4 C Pulse Rate 88 Respiratory Rate Blood Pressure 91/51 L Pulse Oximetry 99 Intake/Output Intake/Output: Intake & Output 04/16/21 04/17/21 04/18/21 04/19/21 23:59 23:59 23:59 23:59 Intake Total 2610 2860 2770 500 Output Total
--- NOTE | 2021-04-19 11:18 | P.PCNCC_ITS ---
Cardiac Cath Procedure Note Date of procedure:: 04/19/21 Performing physician:: Harish Gupta MD Indication:: Mitral valve regurgitation/congestive heart failure Brief clinical history:: This is a 71-year-old woman with a history of coronary disease, remote history of stenting of the OM circumflex branch. She presents with congestive heart failure and has been found to have significant mitral regurgitation by previous transthoracic echo which appears to be a highly eccentric jet. In addition to this the patient has been found to have a significant microcytic anemia which is a new finding as well. Procedure Procedure performed:: Transesophageal echocardiogram Sedation/Medication given:: Fentanyl 50 mg Versed 4 mg Case start time 11:08 a.m. Case end time 11:18 a.m. Sedation provided by Georgette Burris RN, trained observer Estimated blood loss:: No blood loss Procedure note:: Patient was brought to the cardiac catheterization lab holding area in the postabsorptive state she was in the supine position or pharyngeal benzocaine spray was used for topical anesthesia. Following this the bite block was placed into position and she was then sedated using the combination of fentanyl and Versed detailed above. Following achievement of good sedation the JULIET probe was advanced into the oropharynx and then into the esophagus easily and without difficulty. Transesophageal echocardiogram was carried out as detailed below. The catheter was then withdrawn the bite block was removed and the patient is being recovered from sedation uneventfully. Findings:: The left atrium is moderately dilated. The anterior mitral valve leaflet looks normal. Sections of the posterior mitral valve leaflet are tethered into the left ventricle with evidence of papillary muscle dysfunction and failure of good coaptation with the anterior leaflet. There was no evidence of disrupted chordal elements. Color Doppler interrogation of the valve demons trates a at least moderate amount of mitral regurgitation resulting from the failure of coaptation as detailed above. The left ventricle is mildly enlarged there is moderate global hypocontractility noted with an ejection fraction of about 40%. The aortic valve is trileaflet appears to be normal thin and pliable. Aortic root and descending thoracic aorta look normal. The right- sided chambers look normal. The tricuspid valve and pulmonic valves are unremarkable in appearance. There is no pericardial effusion. Conclusion:: 1. Transesophageal echocardiogram demonstrating significant mitral regurgitation resulting from failure of coaptation of the posterior leaflet with evidence of papillary muscle dysfunction. 2. Moderate left ventricular systolic dysfunction 3. Normal aortic valve Harish Gupta MD FACC
--- NOTE | 2021-04-19 14:02 | PM.IMPN ---
Progress Note: A&P Assessment and Plan (1) Acute exacerbation of CHF (congestive heart failure): Qualifiers: Heart failure type: unspecified Qualified Code(s): I50.9 - Heart failure, unspecified Code(s): I50.9 - Heart failure, unspecified Status: Acute Assessment and Plan: Continue to diuresis with iv lasix daily watch kidney function Acute on chronic systolic congestive heart failure Left ventricular systolic function is normal, estimated at 65-70%. 3. There is mildly increased left ventricular wall thickness SP heart cath and JULIET. (2) COPD (chronic obstructive pulmonary disease): Qualifiers: COPD type: unspecified COPD Qualified Code(s): J44.9 - Chronic obstructive pulmonary disease, unspecified Code(s): J44.9 - Chronic obstructive pulmonary disease, unspecified Status: Acute Assessment and Plan: Pt can continue home medications and start on nebulisers here. (3) CAD (coronary artery disease): Qualifiers: Coronary Disease-Associated Artery/Lesion type: [place] artery [place] vs. transplanted heart: [place] heart Associated angina: without angina Qualified Code(s): I25.10 - Atherosclerotic heart disease of [place] coronary artery without angina pectoris Code(s): I25.10 - Atherosclerotic heart disease of [place] coronary artery without angina pectoris Status: Chronic Assessment and Plan: Consult cardiology known patient to cardiology. (4) Anemia: Qualifiers: Anemia type: unspecified type Qualified Code(s): D64.9 - Anemia, unspecified Code(s): D64.9 - Anemia, unspecified Status: Acute Assessment and Plan: pt is going to have EGD and colonoscopy on monday. Subjective Date/time seen: 04/19/21 14:02 Interval history: 70-year-old female with history of hypertension hyperlipidemia and coronary artery disease. Pt has been feeling SOB on exertion. HR is high and feels SOB. Pt is a known patient to Dr Gupta. Pt to have JULIET today and EGD and colonscopy tomorrow. Review of Systems Review of Systems: All systems reviewed & are unremarkable except as noted in HPI and below Exam Const: General: well developed Nutritional Appearance: well nourished HENMT: Head: normocephalic Eyes: General: appearance normal, both eyes and all related structures Pupils: Equal, round and reactive pupils present Neck: Neck: supple Chest: Chest palpation & inspection: normal inspection of the chest Resp: Effort & Inspection: other (decreased breath sounds BL ) Auscultation: clear to auscultation bilaterally Cardio: Jugular venous distension: no JVD Rhythm: regular rhythm Heart sounds: S1 normal heart sound present and S2 normal heart sound present GI: Inspection: normal to inspection Auscultation: normal bowel sounds : General: Yes no CVA tenderness Back/Spine/Pelvis: Back: no CVA tenderness Skin: General skin exam: normal color and dry skin Neuro: Cranial nerves: Yes CN's II-XII intact bilaterally and Yes Equal, round and reactive pupils present Cognition (Neuro): normal cognition Speech: normal speech Motor exam (neuro): 5/5 motor strength present throughout Extrem: General: other (3+ edematous legs to calves ) Psych: Appearance: grossly normal Mental Status: mental status grossly normal Objective Data Vital Signs Vital Signs: Vital Signs - 24 hr 04/18/21 21:51 04/19/21 05:57 04/19/21 08:03 Temperature 36.8 C 36.7 C 36.4 C Pulse Rate 96 84 88 Respiratory Rate 20 20 Blood Pressure 98/63 L 77/42 L 91/51 L Pulse Oximetry 96 95 99 04/19/21 11:00 04/19/21 11:05 04/19/21 11:10 Temperature Pulse Rate 104 H 106 H 94 Respiratory Rate 21 H 23 H 26 H Blood Pressure 123/78 126/70 122/81 Pulse Oximetry 99 99 100 04/19/21 11:15 04/19/21 11:20 04/19/21 11:30 Temperature Pulse Rate 100 98 96 Respiratory Rate 20 25 H 21 H Blood Pressure 108/75 117/79 105/69 Pulse Oximetry
[2021-04-19] MEDS: POTASSIUM CHLORIDE 20 MEQ TABLET.ER PO (14:25)
[2021-04-19] MEDS: SPIRONOLACTONE 50 MG TABLET PO (14:25)
[2021-04-19] MEDS: PANTOPRAZOLE 40 MG TABLET PO (14:25)
[2021-04-19] MEDS: ASPIRIN 81 MG CHEWABLE TABLET PO (14:25)
[2021-04-19] MEDS: polyethylene glycoL 3350 238 GM BOTTLE PO (15:05)
--- NOTE | 2021-04-19 15:10 | PM.IMPN ---
Progress Note: A&P Assessment and Plan (1) Acute exacerbation of CHF (congestive heart failure): Qualifiers: Heart failure type: unspecified Qualified Code(s): I50.9 - Heart failure, unspecified Code(s): I50.9 - Heart failure, unspecified Status: Acute Assessment and Plan: Continue to diuresis with iv lasix daily watch kidney function Acute on chronic systolic congestive heart failure Left ventricular systolic function is normal, estimated at 65-70%. 3. There is mildly increased left ventricular wall thickness SP JULIET. 1. Mild left ventricular enlargement with systolic dysfunction more pronounced in the lateral. EF 40-45%. 2. Normal mitral valve leaflets with no disrupted chordal structure. 3. Evidence of posterior papillary muscle dysfunction with malcoaptation and significant eccentric jet of MR (2) COPD (chronic obstructive pulmonary disease): Qualifiers: COPD type: unspecified COPD Qualified Code(s): J44.9 - Chronic obstructive pulmonary disease, unspecified Code(s): J44.9 - Chronic obstructive pulmonary disease, unspecified Status: Acute Assessment and Plan: Pt can continue home medications and start on nebulisers here. (3) CAD (coronary artery disease): Qualifiers: Associated angina: without angina Coronary Disease-Associated Artery/Lesion type: [place] artery [place] vs. transplanted heart: [place] heart Qualified Code(s): I25.10 - Atherosclerotic heart disease of [place] coronary artery without angina pectoris Code(s): I25.10 - Atherosclerotic heart disease of [place] coronary artery without angina pectoris Status: Chronic Assessment and Plan: Consult cardiology known patient to cardiology. (4) Anemia: Qualifiers: Anemia type: unspecified type Qualified Code(s): D64.9 - Anemia, unspecified Code(s): D64.9 - Anemia, unspecified Status: Acute Assessment and Plan: pt is going to have EGD and colonoscopy on monday. Subjective Date/time seen: 04/19/21 15:10 Interval history: 70-year-old female with history of hypertension hyperlipidemia and coronary artery disease. Pt has been feeling SOB on exertion. HR is high and feels SOB. Pt is a known patient to Dr Gupta. Pt to have JULIET today and EGD and colonscopy tomorrow. Review of Systems Review of Systems: All systems reviewed & are unremarkable except as noted in HPI and below Exam Const: General: well developed Nutritional Appearance: well nourished HENMT: Head: normocephalic Eyes: General: appearance normal, both eyes and all related structures Pupils: Equal, round and reactive pupils present Neck: Neck: supple Chest: Chest palpation & inspection: normal inspection of the chest Resp: Effort & Inspection: other (decreased breath sounds BL ) Auscultation: clear to auscultation bilaterally Cardio: Jugular venous distension: no JVD Rhythm: regular rhythm Heart sounds: S1 normal heart sound present and S2 normal heart sound present GI: Inspection: normal to inspection Auscultation: normal bowel sounds Skin: General skin exam: normal color and dry skin Neuro: Cranial nerves: Yes CN's II-XII intact bilaterally and Yes Equal, round and reactive pupils present Cognition (Neuro): normal cognition Speech: normal speech Extrem: General: edema Psych: Appearance: grossly normal Mental Status: mental status grossly normal Objective Data Vital Signs Vital Signs: Vital Signs - 24 hr 04/18/21 21:51 04/19/21 05:57 04/19/21 08:03 Temperature 36.8 C 36.7 C 36.4 C Pulse Rate 96 84 88 Respiratory Rate 20 20 Blood Pressure 98/63 L 77/42 L 91/51 L Pulse Oximetry 96 95 99 04/19/21 11:00 04/19/21 11:05 04/19/21 11:10 Temperature Pulse Rate 104 H 106 H 94 Respiratory Rate 21 H 23 H 26 H Blood Pressure 123/78 126/70 122/81 Pulse Oximetry 99 99 100 04/19/21 11:15 04/19/21 11:20 04/19/21 11:30 Temperature
[2021-04-19] MEDS: BISACODYL 5 MG TABLET EC 10 MG PO (18:43)
[2021-04-19] MEDS: CLOBETASOL PROPIONATE 0.05% CREAM 30 GM 1 APPLIC TOPICAL (20:25)
[2021-04-20] MEDS: MAGNESIUM CITRATE 300 ML BTL 150 ML PO (03:10)
[2021-04-20 05:48] VITALS: BP 99/53; PULSE 92; RESP 18; TEMP 36.5; O2SAT 97
[2021-04-20 06:39] LABS: Anion Gap 11 mmol/L (8-16); Blood Urea Nitrogen 15 mg/dL (7-17); Calcium 9.6 mg/dL (8.4-10.2); Carbon Dioxide 27 mmol/L (22-30); Chloride 94 mmol/L (98-107); Estimated CRCL calculation 45 ml/min; Estimated Glomerular Filt Rate 55; Glucose 120 mg/dL (65-105); Potassium 4.2 mmol/L (3.4-5.0); Sodium 132 mmol/L (137-145)
[2021-04-20 06:47] LABS: Hematocrit 29.2 % (37.0-47.0); Hemoglobin 8.3 g/dL (12.0-15.0); Mean Corpuscular HGB Conc 28.4 g/dl (32-36); Mean Corpuscular Hemoglobin 17.4 pg (26-34); Mean Corpuscular Volume 61.2 fl (80-100); Mean Platelet Volume 10.5 fl (7.4-10.4); Platelet Count Result 364 k/mm3 (150-375); Red Blood Count 4.77 M/mm3 (4.2-5.4); Red Cell Distribution Width 20.7 % (11.5-14.5); White Blood Count 6.9 K/mm3 (4.5-10.0)
--- NOTE | 2021-04-20 09:33 | PM.PNCARD ---
Progress Note: A&P Assessment and Plan (1) Acute exacerbation of CHF (congestive heart failure): Qualifiers: Heart failure type: unspecified Qualified Code(s): I50.9 - Heart failure, unspecified Code(s): I50.9 - Heart failure, unspecified Status: Acute Assessment and Plan: Presented with shortness of breath and volume overload. Echocardiogram showed: 1. Mild left ventricular enlargement with systolic dysfunction more pronounced in the lateral. EF 40-45% 2. Normal mitral valve leaflets with no disrupted chordal structure 3. Evidence of posterior papillary muscle dysfunction with malcoaptation and significant eccentric jet of MR. Symptoms improved with IV diuresis. She was transitioned to oral diuretics which apparently have been held for the past couple of days due to the hypotension. She still has a moderate amount of bilateral lower extremity edema - Her oral diuretic should be resumed. (2) CAD (coronary artery disease): Qualifiers: Coronary Disease-Associated Artery/Lesion type: [place] artery [place] vs. transplanted heart: [place] heart Associated angina: without angina Qualified Code(s): I25.10 - Atherosclerotic heart disease of [place] coronary artery without angina pectoris Code(s): I25.10 - Atherosclerotic heart disease of [place] coronary artery without angina pectoris Status: Chronic Assessment and Plan: History of coronary artery disease and remote history and PCI to the OM circumflex. On aspirin Check lipid panel (3) Mitral valve regurgitation: Code(s): I34.0 - Nonrheumatic mitral (valve) insufficiency Status: Acute Assessment and Plan: Evidence of posterior papillary muscle dysfunction with malcoaptation and significant eccentric jet of MR by JULIET on 04/19/2021. Shortness of breath resolved with diuresis. Will follow as an outpatient. (4) Atrial fibrillation: Code(s): I48.91 - Unspecified atrial fibrillation Status: Acute Assessment and Plan: History of atrial fibrillation identified as an outpatient. She has since converted to normal sinus rhythm. Unable to tolerate ongoing systemic anticoagulation was Xarelto due to melanotic stools. Subjective Date/time seen: 04/20/21 09:33 Interval history: Follow-up visit in this 71-year-old lady with: Admission with fluid overload shortness of breath and new diagnosis of relatively severe microcytic anemia and concern regarding significant mitral valve regurgitation. Patient has a remote history of PCI to the OM circumflex branch. Patient has been transferred up to 3rd floor. Remains asymptomatic and doing well shortness of breath has been resolved with diuresis. Plans for esophageal echo tomorrow morning were discussed again with the patient and her . Following that procedure she is going to start bowel prep for upper and lower endoscopy to investigate significant microcytic anemia. Date of service 04/20/2021: Patient states she is feeling well today. She is not having any more shortness of breath. She tells me she is going down for upper and lower endoscopy at 11:00. She still has a moderate amount of lower extremity edema. She tells me that her diuretics have been held for the past couple days due to some low blood pressure measurements. She is hoping to be able to go home later today following her procedure. Review of Systems Constitutional: Constitutional: Reports fatigue Eyes: Eyes: Reports no additional eye complaints ENT: Reports system reviewed and no additional complaints, except as documented Cardiovascular: Cardiovascular: Reports as per HPI Respiratory: Respiratory: Reports as per HPI Gastrointestinal: Gastrointestinal: Reports as per HPI Musculoskeletal: Musculoskeletal: Reports no additional musculoskeletal complaints Integumentary/Breasts: Skin/Breast: Reports system reviewed and no additional complaints, except as docu Neurologic: Rep
[2021-04-20 10:14] LABS: Cholesterol 82 mg/dL (0-200); HDL Direct 22 mg/dL; Triglycerides 65 mg/dL (<150)
--- NOTE | 2021-04-20 10:22 | PC.NURSE ---
To GI Lab per wheelchair.
[2021-04-20 10:24] LABS: LDL Cholesterol Direct 42 mg/dL
[2021-04-20 10:40] VITALS: BP 100/55; PULSE 92; RESP 18; TEMP 36.4; O2SAT 100
[2021-04-20] MEDS: LACTATED RINGERS 1,000 ML 150 ML IV CONT (10:43)
--- NOTE | 2021-04-20 11:46 | WPDANESEPPF ---
Anes - Initial Pre Proc Eval Procedure: Operation Date: 04/19/21 10:00 Proposed Procedures p Trans Esophageal Echo - Harish Gupta MD Operation Date: 04/20/21 11:30 Proposed Procedures p Esophagogastroduodenoscopy & Colonoscopy - Ted Dillon MD Date/Time: 04/20/21 11:46 Surgeon: Brynn Yan DO Pre Op Diagnosis: Acute Congestive Heart Failure exacerbation,Anemia Patient Data Age: 71 Gender: F Height: 1.57 m Weight: 81.3 kg Last Vital Signs Temp 36.4 C 04/20/21 10:40 Pulse 92 04/20/21 10:40 Resp 18 04/20/21 10:40 BP 100/55 L 04/20/21 10:40 Pulse Ox 100 04/20/21 10:40 Allergies Allergy/AdvReac Type Severity Reaction Status Date / Time No Known Allergies Allergy Verified 04/20/21 10:37 Home Medications Medication Instructions Recorded Confirmed Type nebulizer and compressor [Comp-Air #1 ea 09/09/20 04/15/21 Rx Nebulizer Compressor] Stiolto Respimat 1 inh INHALATION BID 01/10/21 04/15/21 History potassium chloride 20 meq PO DAILY 30 Days #30 tablet 01/11/21 04/15/21 Rx aspirin 81 mg PO DAILY 04/15/21 04/15/21 History furosemide 40 mg PO EVERY OTHER DAY 04/15/21 04/15/21 History furosemide 80 mg PO EVERY OTHER DAY 04/15/21 04/15/21 History pantoprazole 40 mg PO DAILY 04/15/21 04/15/21 History spironolactone 50 mg PO DAILY 04/15/21 04/15/21 History Laboratory Tests 04/20/21 04/20/21 04/20/21 05:40 05:40 05:40 WBC 6.9 K/mm3 K/mm3 (4.5-10.0) RBC 4.77 M/mm3 M/mm3 (4.2-5.4) Hgb 8.3 g/dL L g/dL (12.0-15.0) Hct 29.2 % L % (37.0-47.0) MCV 61.2 fl L fl (80-100) MCH 17.4 pg L pg (26-34) MCHC 28.4 g/dl L g/dl (32-36) RDW 20.7 % H % (11.5-14.5) Plt Count 364 k/mm3 k/mm3 (150-375) MPV 10.5 fl H fl (7.4-10.4) Sodium 132 mmol/L L mmol/L (137-145) Potassium Cancelled 4.2 mmol/L mmol/L (3.4-5.0) Chloride 94 mmol/L L mmol/L (98-107) Carbon Dioxide 27 mmol/L mmol/L (22-30) Anion Gap 11 mmol/L mmol/L (8-16) BUN 15 mg/dL mg/dL (7-17) Creatinine 1.00 mg/dL mg/dL (0.7-1.0) Estim Creat Clear Calc 45 ml/min ml/min Estimated GFR 55 L (59 - ) Glucose 120 mg/dL H mg/dL (65-105) Calcium 9.6 mg/dL mg/dL (8.4-10.2) Triglycerides Cholesterol LDL Cholesterol Direct HDL Direct 04/20/21 05:40 WBC RBC Hgb Hct MCV MCH MCHC RDW Plt Count MPV Sodium Potassium Chloride Carbon Dioxide Anion Gap BUN Creatinine Estim Creat Clear Calc Estimated GFR Glucose Calcium Triglycerides 65 mg/dL mg/dL (<150) Cholesterol 82 mg/dL mg/dL (0-200) LDL Cholesterol Direct 42 mg/dL mg/dL HDL Direct 22 mg/dL mg/dL Patient hx anesthesia problems: none Family hx anesthesia problems: none [facility] Past Medical History Medical History (Updated 04/20/21 @ 11:48 by Chin Croft MD) Acute exacerbation of CHF (congestive heart failure) Aortic stenosis Atrial fibrillation CAD (coronary artery disease) COPD (chronic obstructive pulmonary disease) Depression Heart attack Hyperlipidemia Hypertension Nephrolithiasis Surgical History Surgical History History of coronary artery stent placement Family History Family History Father Cancer Mother Acute myocardial infarction Social History Social History Smoking packs per day: 0.5 Smoking cigarettes per day: 10.0 Years smoked: 50 Smoking pack-years: 25.00 Smoking status: Current every day smoker Tobacco type: cigarettes Alcoho
[2021-04-20] MEDS: BENZOCAINE (*SP) 60 ML SPRAY CAN (HURRICAINE) 1 SPRAY MUCOUS MEM (11:53)
[2021-04-20 12:25] VITALS: BP 100/71; PULSE 87; RESP 30; O2SAT 96
[2021-04-20 12:35] VITALS: BP 101/68; PULSE 84; RESP 21; O2SAT 96
[2021-04-20 12:45] VITALS: BP 94/63; PULSE 81; RESP 18; O2SAT 97
[2021-04-20 12:55] VITALS: BP 101/66; PULSE 87; RESP 22; O2SAT 99
[2021-04-20] MEDS: SPIRONOLACTONE 50 MG TABLET PO (14:18)
[2021-04-20] MEDS: POTASSIUM CHLORIDE 20 MEQ TABLET.ER PO (14:19)
[2021-04-20] MEDS: PANTOPRAZOLE 40 MG TABLET PO (14:19)
[2021-04-20] MEDS: FUROSEMIDE 80 MG TABLET PO (14:19)
--- NOTE | 2021-04-20 14:30 | PM.DS ---
DS: Admitting Diagnosis Admitting Diagnosis Admitting Diagnosis: Chief Complaint: Admitted with dyspnea DS: Discharge Diagnosis Discharge Diagnosis (1) Acute exacerbation of CHF (congestive heart failure): Qualifiers: Heart failure type: unspecified Qualified Code(s): I50.9 - Heart failure, unspecified Code(s): I50.9 - Heart failure, unspecified Status: Acute Assessment and Plan: Continue to diuresis with iv lasix daily watch kidney function Acute on chronic systolic congestive heart failure Left ventricular systolic function is normal, estimated at 65-70%. 3. There is mildly increased left ventricular wall thickness SP JULIET. 1. Mild left ventricular enlargement with systolic dysfunction more pronounced in the lateral. EF 40-45%. 2. Normal mitral valve leaflets with no disrupted chordal structure. 3. Evidence of posterior papillary muscle dysfunction with malcoaptation and significant eccentric jet of MR (2) COPD (chronic obstructive pulmonary disease): Qualifiers: COPD type: unspecified COPD Qualified Code(s): J44.9 - Chronic obstructive pulmonary disease, unspecified Code(s): J44.9 - Chronic obstructive pulmonary disease, unspecified Status: Acute Assessment and Plan: Pt can continue home medications and start on nebulisers here. (3) CAD (coronary artery disease): Qualifiers: Associated angina: without angina Coronary Disease-Associated Artery/Lesion type: [place] artery [place] vs. transplanted heart: [place] heart Qualified Code(s): I25.10 - Atherosclerotic heart disease of [place] coronary artery without angina pectoris Code(s): I25.10 - Atherosclerotic heart disease of [place] coronary artery without angina pectoris Status: Chronic Assessment and Plan: Consult cardiology known patient to cardiology. (4) Anemia: Qualifiers: Anemia type: unspecified type Qualified Code(s): D64.9 - Anemia, unspecified Code(s): D64.9 - Anemia, unspecified Status: Acute Assessment and Plan: pt is going to have EGD and colonoscopy on monday. DS: Summary Hospital Course Reason for hospitalization: Chief Complaint: Admitted with dyspnea Narrative: 70-year-old female with history of hypertension hyperlipidemia and coronary artery disease. Pt has been feeling SOB on exertion. HR is high and feels SOB. Pt is a known patient to Dr Gupta. Pt sees Dr Malcolm as PCP. Pt denies chest pain. Pt has had alot of swelling of her legs. Cxr shows pulmonary edema and cardiomegaly. Echo reviewed. Pts Ef is 65-70%. kidney function is NL sodium is 128. Hospital Course: Continue to diuresis with iv lasix daily watch kidney function Acute on chronic systolic congestive heart failure Left ventricular systolic function is normal, estimated at 65-70%. 3. There is mildly increased left ventricular wall thickness SP JULIET. 1. Mild left ventricular enlargement with systolic dysfunction more pronounced in the lateral. EF 40-45%. 2. Normal mitral valve leaflets with no disrupted chordal structure. 3. Evidence of posterior papillary muscle dysfunction with malcoaptation and significant eccentric jet of MR patient was diuresed with IV Lasix seen by cardiology clinical symptoms have improved will switch over to oral Lasix and discharge the patient today Status at Discharge Functional status at discharge: uses cane/walker Overall status at discharge: patient is back to baseline Time Spent with Patient Time attestation: Total time spent providing and/or coordinating discharge services: Patient was seen and examined at the time of the discharge Condition at discharge is stable Code status: Full code. Time spent preparing discharge summary, discharge medications, discussing discharge planning with immigration case manager and patient is 35 minutes. Exam Narrative: Exam Narrative: Patient is comfortable, NAD HEENT: eyes are clear and none
== END 2021-04-20 14:50 | disposition home or self-care (01) | DRG 292 ==
LOC: ANHED 04-15 00:06 → ANH3MEDSUR 04-15 00:28
PROVIDERS: Family Medicine; Internal Medicine Gastroenterology; Nurse Practitioner; Specialist; Admitting Provider Internal Medicine; Emergency Provider Emergency Medicine; PCP Family Medicine Adolescent Medicine; Visit Provider Family Medicine
PROC: B24BZZ4 Ultrasonography of Heart with Aorta, Transesophageal (ICD-10-PCS; CPT 93312; principal; 2021-04-19 10:00)
PROC: 0DJ08ZZ Inspection of Upper Intestinal Tract, Via Natural or Artificial Opening Endoscopic (ICD-10-PCS; CPT 43235; principal; 2021-04-20 11:30)
DX: I11.0 Hypertensive heart disease with heart failure (principal); K92.1 Melena; I50.23 Acute on chronic systolic (congestive) heart failure; K21.9 Gastro-esophageal reflux disease without esophagitis; K29.70 Gastritis, unspecified, without bleeding; K64.8 Other hemorrhoids; K57.30 Diverticulosis of large intestine without perforation or abscess without bleeding; D12.3 Benign neoplasm of transverse colon; I25.10 Atherosclerotic heart disease of native coronary artery without angina pectoris; I34.0 Nonrheumatic mitral (valve) insufficiency; J44.9 Chronic obstructive pulmonary disease, unspecified; F32.9 Major depressive disorder, single episode, unspecified; E78.5 Hyperlipidemia, unspecified; D64.9 Anemia, unspecified; I25.2 Old myocardial infarction; Z95.5 Presence of coronary angioplasty implant and graft; I48.91 Unspecified atrial fibrillation; Z87.891 Personal history of nicotine dependence; E66.9 Obesity, unspecified; Z68.32 Body mass index [BMI] 32.0-32.9, adult
CPT/HCPCS: 36415; 71046; 80048; 80061; 83540; 83550; 83880; 84484; 85025; 85027; 85610; 85730; 86850; 86900; 86901; 87081; 88305; 93005; 93312; 93320; 93325; 96372; 96374; 96376; 99285; A9270; G0378; J1650; J1940; J2250; J2704; J3010; J7040; J7120

== ENCOUNTER 2021-05-10 21:40 | Observation (INO) | payer MEDICARE, SELFPAY ==
--- NOTE | ~2021-05-10 | XR_ITS ---
EXAMINATION: XR chest 2V EXAM DATE: 05/10/2021 22:09 INDICATION: Midsternal chest pain for one hour. History atrial fibrillation. TECHNIQUE: Frontal and lateral projections of the chest obtained and reviewed. Comparison is made to prior examination from 04/14/2021. FINDINGS: There is cardiomegaly. Some chronic hyperinflation. There is aortic arteriosclerosis. No co nfluent consolidation, pneumothorax or pleural effusion suspected. Mild thoracic spondylosis. IMPRESSION: Cardiomegaly. Reviewed, dictated and finalized at location A. IMPRESSION: Cardiomegaly.
--- NOTE | 2021-05-10 21:42 | ECG_ITS ---
Measurements Intervals [place] Rate: 122 P: DC: 0 QRS: -46 QRSD: 120 T: 21 QT: 289 QTc: 412 Interpretive Statements ATRIAL FIBRILLATION WITH RAPID VENTRICULAR RESPONSE LEFT AXIS DEVIATION INTRAVENTRICULAR CONDUCTION DELAY ABNORMAL ECG Electronically Signed On 05-11-2021 6:00:35 CDT by Isac Dey D.O.
--- NOTE | 2021-05-10 21:42 | PC.NURSE ---
call family when pt. in a room. [phone] Adiel
[2021-05-10 21:49] VITALS: BP 111/54; PULSE 63; RESP 18; TEMP 36.6; O2SAT 97
[2021-05-10 22:33] LABS: Basophils Absolute Auto 0.1 K/mm3 (0.0-0.1); Basophils Percent Auto 0.6 % (0.2-1.2); Eosinophils Absolute Auto 0.1 K/mm3 (0-0.3); Eosinophils Percent Auto 0.6 % (0-4.4); Hematocrit 39.1 % (37.0-47.0); Hemoglobin 11.5 g/dL (12.0-15.0); Immature Granulocyte Absolute 0.03 K/mm3 (0.00-0.031); Immature Granulocyte Percent A 0.4 % (0-0.5); Immature Platelet Fraction Pct 3.8 % (0.9-11.2); Lymphocytes Absolute Auto 1.29 K/mm3 (0.9-3.2); Lymphocytes Percent Auto 15.6 % (18.3-44.2); Mean Corpuscular HGB Conc 29.4 g/dl (32-36); Mean Corpuscular Volume 64.6 fl (80-100); Mean Platelet Volume 9.6 fl (7.4-10.4); Monocytes Absolute Auto 0.8 K/mm3 (0.1-0.6); Monocytes Percent Auto 9.4 % (2.6-8.5); Neutrophils Absolute Auto 6.1 K/mm3 (1.3-6.7); Neutrophils Percent Auto 73.4 % (45.5-73.1); Platelet Count Result 385 k/mm3 (150-375); Red Blood Count 6.05 M/mm3 (4.2-5.4); Red Cell Distribution Width 31.3 % (11.5-14.5); White Blood Count 8.3 K/mm3 (4.5-10.0)
[2021-05-10 22:41] LABS: Anion Gap 10 mmol/L (8-16); Blood Urea Nitrogen 21 mg/dL (7-17); Calcium 9.6 mg/dL (8.4-10.2); Carbon Dioxide 25 mmol/L (22-30); Chloride 88 mmol/L (98-107); Estimated CRCL calculation 40 ml/min; Estimated Glomerular Filt Rate 49; Glucose 128 mg/dL (65-105); Potassium 4.9 mmol/L (3.4-5.0); Sodium 123 mmol/L (137-145)
[2021-05-10 22:42] LABS: INR 1.1; Prothrombin Time 13.9 Seconds (11.1-14.7)
[2021-05-10 22:44] LABS: Partial Thromboplastin Time 31.5 SECONDS (22.3-36.8)
[2021-05-10 22:49] LABS: Anisocytosis 3+ (NORMAL)
[2021-05-10 22:50] LABS: Hypochromasia 1+ (NORMAL)
[2021-05-10 23:25] VITALS: BP 106/83; PULSE 110; RESP 20; O2SAT 100
[2021-05-11] VITALS (14 sets, daily range): BP systolic 91–112; BP diastolic 52–96; PULSE 85–125; RESP 14–21; TEMP 36.4–36.7; O2SAT 97–100; BMI 32.5
--- NOTE | 2021-05-11 00:26 | ED.CHESTPAIN ---
HPI - Chest Pain General Chief Complaint: Chest Pain Stated Complaint: cp Time Seen by Provider: 05/10/21 23:47 Source: patient and RN notes reviewed Mode of arrival: ambulatory Limitations: no limitations History of Present Illness HPI narrative: This is a 71 year old female with history of atrial fibrillation , CHF with EF 40%, CAD s/p stent who presents for evaluation of chest pain. Patient states she developed midsternal nonradiating chest pain 30 minutes prior to arrival. Her chest pain resolved shortly upon arrival and she continues to deny pain. She denies associated nausea, vomiting, shortness of breath or diaphoresis. She has been noted to be in atrial fibrillation with RVR but she denies palpitations. She does report feeling dizzy today. She has chronic edema which has improved from her last hospitatlization. Related Data Home Medications Medication Instructions Recorded Confirmed Stiolto Respimat 1 inh INHALATION BID 01/10/21 05/11/21 aspirin 81 mg PO DAILY 04/15/21 05/11/21 pantoprazole 40 mg PO DAILY 04/15/21 05/11/21 spironolactone 50 mg PO DAILY 04/15/21 05/11/21 furosemide 40 mg PO USEASDIRECTD 05/11/21 05/11/21 furosemide 80 mg PO USEASDIRECTD 05/11/21 05/11/21 Allergies Allergy/AdvReac Type Severity Reaction Status Date / Time No Known Allergies Allergy Verified 05/10/21 23:30 Review of Systems Review of Systems: All systems reviewed & are unremarkable except as noted in HPI and below Constitutional: Constitutional: Denies chills and Denies fever(s) Cardiovascular: Cardiovascular: Reports chest pain, Denies rapid heart rate and Denies radiating jaw, neck or arm pain Respiratory: Respiratory: Denies cough and Denies dyspnea Gastrointestinal: Gastrointestinal: Denies abdominal pain, Denies nausea and Denies vomiting Neurologic: Reports dizziness PMFSH Past Medical History Medical History Acute exacerbation of CHF (congestive heart failure) Aortic stenosis Atrial fibrillation CAD (coronary artery disease) COPD (chronic obstructive pulmonary disease) Depression Heart attack Hyperlipidemia Hypertension Nephrolithiasis Surgical History Surgical History History of coronary artery stent placement Family History Family History (Updated 05/11/21 @ 04:36 by Annmarie Hauser RN) Father Cancer Mother Acute myocardial infarction Congestive heart failure Son Diabetes mellitus Sibling Chronic obstructive pulmonary disease Social History Social History Smoking packs per day: 0.5 Smoking cigarettes per day: 10.0 Years smoked: 50 Smoking pack-years: 25.00 Smoking status: Current every day smoker Tobacco type: cigarettes Second hand tobacco smoke exposure: Yes Alcohol intake: never Substance use: never Gender identity (if verbalized by the patient): Female Spiritual care concerns: No Exam Const: General: no acute distress and alert Orientation/consciousness: patient oriented x3 Eyes: EOM: EOMs intact bilaterally Resp: Effort & Inspection: normal respiratory effort and no retractions Auscultation: clear to auscultation bilaterally Cardio: Rate: tachycardic Rhythm: abnormal rhythm Heart sounds: Murmur heart sound present GI: GI Palp: Yes Soft to palpation, No Tenderness to palpation present (GI) and No Guarding due to palpation present (GI) Auscultation: normal bowel sounds Skin: General skin exam: normal color Rashes: no rashes Neuro: General: patient oriented x3, moves all extremities and CN's II-XI intact bilaterally Psych: Mental Status: mental status grossly normal Affect: normal affect Course Reevaluation(s) Reevaluation #1: I discussed case with DR. brown who accepts to IMU. Patient is likely overdiuresed from increase in lasix. She now has acute hyponatremi
[2021-05-11 00:46] LABS: Troponin I 0.025 ng/mL (0.000-0.034)
[2021-05-11] MEDS: METOPROLOL TARTRATE 50 MG TAB 25 MG PO (00:59)
[2021-05-11] MEDS: SODIUM CHLORIDE 0.9% IV 500 ML 999 ML IV CONT ×2 (01:48→03:13)
--- NOTE | 2021-05-11 03:04 | PC.NURSE ---
Attempted to call report to ICU at this time. Spoke with Zack and was told that receiving nurse is busy and will call back when available.
--- NOTE | 2021-05-11 03:17 | PC.NURSE ---
Attempted to give report to ICU at this time. Spoke with Nicole PARK and was informed receiving nurse was still busy with a pt. This RN asked if there was anyone else willing to take report and was told no, and that the receiving nurse will call shortly.
--- NOTE | 2021-05-11 03:27 | PC.NURSE ---
This RN returned call from ICU to give report. Spoke with Annmarie PARK, but before being able to give report, Annmarie stated that she would have to call back because her pt was climbing out of bed. This RN asked if there was anyone else willing to take report for pt. Annmarie RN stated Yes, if you can find them, they're all busy . And then hung up phone.
--- NOTE | 2021-05-11 06:29 | PC.NURSE ---
This patient, Monica Rangel, was admitted to Intensive Care Unit-10 at 0415. Patient/family oriented to hospital policies and general routines including ID bracelet, bed and alarms, visiting hours, pain management, procedures, bathroom and other care routines, personal items, smoking policy, room service/diet, and visiting hours. Information on how to activate the Rapid Response Team has been discussed. Patient/Family are encouraged to report perceived risks to care and to ask questions if they do not understand what they are told or what they should do.
[2021-05-11] MEDS: SODIUM CHLORIDE 0.9% IV 1,000 ML 50 ML IV CONT (06:53)
[2021-05-11 07:31] LABS: Troponin I 0.034 ng/mL (0.000-0.034)
--- NOTE | 2021-05-11 08:04 | PM.IMHP ---
H&P: HPI History of Present Illness Date/Time: 05/11/21 08:04Stephanie is a 71 year old female patient who has a past medical history of congestive heart failure, COPD, atrial fibrillation, congestive heart failure and coronary artery disease status post a stent. The patient stated that she has chronic edema to her lower extremities and has been taking her diuretics. Patient stated that she has been taking all her medications as prescribed. She stated that the Lasix has been dropping her blood pressure is well. The patient stated that she ate 1 hour prior to having chest pain. She developed chest pain that lasted for approximately 30 minutes. The patient stated that she was resting when this occurred. She had mid sternal chest pressure that did not radiate down the arms or upper jaw line. She stated when she had her last stent she had pain upper jaw line and between her shoulders but this was different from the last time. Patient had no nausea vomiting or diarrhea. She had no fever chills. Her patient denied any palpitations. She did feel somewhat dizzy today. Her EKG was read as AFib with rapid ventricular response with heart rate in 128. The patient was given metoprolol and IV fluids. Her sodium level was noted to be 123. Patient's sodium level typically ranges anywhere from 128-132. She is on 2 different diuretics. The patient is currently in sinus rhythm with heart rate in the 90. Her last blood pressure is 112/96. Cardiology has been consulted. she typically sees Dr. Gupta. Troponins have been negative x3. Chest x-ray was read as cardiomegaly. some chronic hyperinflation. Patient is being admitted as observation on the date of service of 05/11/2021. Chief Complaint: Chest pain Review of Systems Review of Systems: All systems reviewed & are unremarkable except as noted in HPI and below Constitutional: Constitutional: Reports as per HPI and Reports no additional constitutional complaints Eyes: Eyes: Reports as per HPI and Reports no additional eye complaints ENT: Reports system reviewed and no additional complaints, except as documented and Reports Normal hearing present Cardiovascular: Cardiovascular: Reports no additional cardiovascular complaints Respiratory: Respiratory: Reports no additional respiratory complaints and Reports no additional respiratory complaints Gastrointestinal: Gastrointestinal: Reports as per HPI and Reports no additional gastrointestinal complaints Musculoskeletal: Musculoskeletal: Reports no additional musculoskeletal complaints Integumentary/Breasts: Skin/Breast: Reports system reviewed and no additional complaints, except as docu and Reports as per HPI Neurologic: Reports system reviewed and no additional complaints, except as documented, Reports as per HPI and Reports Normal hearing present Psychiatric: Psychiatric: Reports no additional psychiatric complaints and Reports as per HPI Endocrine: Endocrine: Reports no additional endocrine complaints Hematologic/Lymphatic: Hematologic/Lymphatic: Reports no additional hematologic/lymphatic complaints Allergic/Immunologic: Allergic/Immunologic: Reports no additional allergic/immunologic complaints [facility] Past Medical History Medical History (Updated 05/11/21 @ 08:19 by Martine Fernando NP) Acute exacerbation of CHF (congestive heart failure) Aortic stenosis Atrial fibrillation CAD (coronary artery disease) COPD (chronic obstructive pulmonary disease) Depression Heart attack Hyperlipidemia Hypertension Nephrolithiasis Surgical History Surgical History (Updated 05/11/21 @ 08:35 by Martine Fernando NP) H/O tubal ligation History of coronary artery stent placement Family History Family History (Updated 05/11/21 @ 04:36 by Annmarie Hauser RN) Father Cancer Mother Acute myocardial infarction Congestive heart failure Son Diabetes mellitus Sibling Chronic obstructive pulmonary disease Social History Social History
[2021-05-11 09:25] LABS: Anion Gap 6 mmol/L (8-16); Blood Urea Nitrogen 18 mg/dL (7-17); Calcium 9.3 mg/dL (8.4-10.2); Carbon Dioxide 27 mmol/L (22-30); Chloride 93 mmol/L (98-107); Estimated CRCL calculation 50 ml/min; Estimated Glomerular Filt Rate > 60; Glucose 104 mg/dL (65-105); Magnesium 1.8 mg/dL (1.6-2.3); Potassium 4.5 mmol/L (3.4-5.0); Sodium 126 mmol/L (137-145)
[2021-05-11] MEDS: UMECLIDINIUM/VILANTEROL 62.5-25 MCG ELLIPTA 1 PUFF INHALATION (10:14)
[2021-05-11] MEDS: ENOXAPARIN 40 MG/0.4 ML SYRINGE SUB-Q ×2 (10:15→20:17)
[2021-05-11] MEDS: FAMOTIDINE 20 MG/2 ML VIAL IV PUSH ×2 (11:39→20:17)
--- NOTE | 2021-05-11 12:00 | PM.CNCAR ---
Assessment and Plan Assessment and plan (1) Atrial fibrillation with rapid ventricular response: Code(s): I48.91 - Unspecified atrial fibrillation Status: Acute Assessment and Plan: back in sinus rhythm. Chest pain has resolved. Not on anticoagulation his recurrent melanotic stools. Atrial fibrillation likely being driven by her mitral regurgitation (2) Chest pain: Code(s): R07.9 - Chest pain, unspecified Status: Acute Assessment and Plan: now resolved. Cannot exclude angina but most likely secondary to AFib. Troponins negative x3 (3) CAD (coronary artery disease): Qualifiers: Coronary Disease-Associated Artery/Lesion type: [place] artery [place] vs. transplanted heart: [place] heart Associated angina: without angina Qualified Code(s): I25.10 - Atherosclerotic heart disease of [place] coronary artery without angina pectoris Code(s): I25.10 - Atherosclerotic heart disease of [place] coronary artery without angina pectoris Status: Chronic Assessment and Plan: previous OM stent 2004. Continue current medical therapy (4) Mitral valve regurgitation: Code(s): I34.0 - Nonrheumatic mitral (valve) insufficiency Status: Acute Assessment and Plan: has appointment with CTS at [place] on (5) Tobacco dependence: Code(s): F17.200 - Nicotine dependence, unspecified, uncomplicated Status: Chronic Assessment and Plan: counseling performed (6) Hyponatremia: Code(s): E87.1 - Hypo-osmolality and hyponatremia Status: Acute (7) Congestive heart failure: Qualifiers: Heart failure chronicity: acute Heart failure type: unspecified Qualified Code(s): I50.9 - Heart failure, unspecified Code(s): I50.9 - Heart failure, unspecified Status: Acute Assessment and Plan: related valvular heart disease . Continue diuretics and current medical therapy History of Present Illness History of Present Illness Consult date/time: 05/11/21 12:00 Requesting physician: Lizzie Moran MD Consult reason: chest pain and atrial fibrillation Reason For Visit: acute hyponatremia, atrial fibrillation with RVR Narrative: date of service 05/11/2021 Reason for consultation: Chest pain, atrial fibrillation Requesting provider: Dr. Moran History: Patient 71-year-old female patient Dr. Gupta who was recently here last month because of shortness of breath. she did undergo a JULIET which confirmed severe mitral regurgitation. She is in the process of being evaluated by CT surgery and has an appointment Dr. Montes on . Yesterday afternoon she had an episode of chest pain. Chest pain it was significant and lasted approximately 30 minutes. It felt different than her previous anginal symptoms that she had prior to her OM stent. Chest pain was midsternal. There is no associated nausea vomiting. No diaphoresis. She came to the hospital and was found to be in atrial fibrillation with rapid ventricular response. Pain went away shortly after coming to the hospital. Her heart rate and rhythm normalized and she currently feels well and denies any chest pain, shortness breath, syncope, presyncope, paroxysmal nocturnal dyspnea, orthopnea, edema or palpitation. She is not on anticoagulation because of recurrent melanotic stools. She was dizzy yesterday and checked her pulse at home and it was elevated. Review of Systems Review of Systems: All systems reviewed & are unremarkable except as noted in HPI and below Constitutional: Constitutional: Denies weakness Eyes: Eyes: Denies blurry vision ENT: Reports Normal hearing present Cardiovascular: Cardiovascular: Reports chest pain and Denies palpitations Respiratory: Respiratory: Denies cough and Denies dyspnea Gastrointestinal: Gastrointestinal: Reports abdominal pain Genitourinary: Genitourinary: Denies hematuria and Denies flank pain [facility]
[2021-05-11 13:33] LABS: Sodium Urine Random 35 meq/L
--- NOTE | 2021-05-11 17:06 | PM.DS ---
DS: Admitting Diagnosis Admitting Diagnosis Admitting Diagnosis: Chest pain DS: Discharge Diagnosis Discharge Diagnosis (1) Chest pain: Code(s): R07.9 - Chest pain, unspecified Status: Acute Assessment and Plan: This resolved approximately 30 minutes prior to arrival to the emergency room. The patient's troponins were negative x3. Cardiology has been consulted. The patient is pain-free at this time. She had no further chest pain or palpitations. The patient stated that her chest discomfort started approximately 1 hour after she ate. Her last echo she had a JULIET on 04/19/2021. May consider discharge if patient's sodium level has improved some and if cardiology has seen the patient and agrees with discharge. most likely secondary to her AFib with RVR. Troponins have been negative (2) Atrial fibrillation with rapid ventricular response: Code(s): I48.91 - Unspecified atrial fibrillation Status: Acute Assessment and Plan: The patient wanted AFib with RVR but was given metoprolol p.o. in the emergency room which brought her heart rate down to the 90s She has a history of atrial fibrillation. However she is not typically on a beta-jason nor is she on any anticoagulation. Per previous cardiology Note, patient has a history of atrial fibrillation that was identified as outpatient. She was converted to normal sinus rhythm on her own. The patient was unable to tolerate ongoing systemic anticoagulation if she was on Xarelto at 1 point but was taken off due to melanotic stools. The patient stated that her blood pressure has been dropping with her diuretics. Cardiology has been consulted. Further recommendation per Cardiology. (3) Acute hyponatremia: Code(s): E87.1 - Hypo-osmolality and hyponatremia Status: Acute Assessment and Plan: Patient stated that she has been having a problem with her sodium since she has had an increase in her Lasix. Patient's sodium was 123 when she came to the ER. Patient's sodium levels typically 128-132. May consider revision of diuretics. I did order urine sodium and osmolarity. May consider nephrology consult if there is no improvement. Patient's diuretics are currently on hold at this time. Patient is gently being hydrated with normal saline. (4) CAD (coronary artery disease): Qualifiers: Coronary Disease-Associated Artery/Lesion type: [place] artery [place] vs. transplanted heart: [place] heart Associated angina: without angina Qualified Code(s): I25.10 - Atherosclerotic heart disease of [place] coronary artery without angina pectoris Code(s): I25.10 - Atherosclerotic heart disease of [place] coronary artery without angina pectoris Status: Chronic Assessment and Plan: The patient is currently NPO until further evaluation per Cardiology. The patient no longer has any chest pain. She has a history of having 1 coronary stent. Troponins are all negative this Admission. Patient no longer has any complaints of any chest pain. (5) Mitral valve regurgitation: Code(s): I34.0 - Nonrheumatic mitral (valve) insufficiency Status: Acute Assessment and Plan: The patient told me that she has an appointment with Dr. Heber yu due to discuss aortic valve repair. Patient's last JULIET was on 04/19/2021 and it was noted that normal mitral valve leaflets with no disrupted chordal structure. Evidence of posterior papillary muscle dysfunction with Malcoaptation and significant a centric jet of MR. (6) COPD (chronic obstructive pulmonary disease): Qualifiers: COPD type: unspecified COPD Qualified Code(s): J44.9 - Chronic obstructive pulmonary disease, unspecified Code(s): J44.9 - Chronic obstructive pulmonary disease, unspecified Status: Acute Assessment and Plan: we have discussed smoking cessation for approximately 10 minutes. The patient was given information on smokin
[2021-05-11 17:48] LABS: Anion Gap 5 mmol/L (8-16); Blood Urea Nitrogen 16 mg/dL (7-17); Calcium 8.9 mg/dL (8.4-10.2); Carbon Dioxide 28 mmol/L (22-30); Chloride 93 mmol/L (98-107); Estimated CRCL calculation 50 ml/min; Estimated Glomerular Filt Rate > 60; Glucose 90 mg/dL (65-105); Potassium 4.4 mmol/L (3.4-5.0); Sodium 126 mmol/L (137-145)
[2021-05-11] MEDS: CLOBETASOL PROPIONATE 0.05% CREAM 30 GM 1 APPLIC TOPICAL (20:17)
[2021-05-12] VITALS: PULSE 104; RESP 16
[2021-05-12 04:00] VITALS: BP 102/66; PULSE 100; PULSE 104; RESP 20; TEMP 36.6; O2SAT 96
[2021-05-12] MEDS: SODIUM CHLORIDE 0.9% IV 1,000 ML 50 ML IV CONT (04:07)
[2021-05-12 06:02] LABS: Anion Gap 8 mmol/L (8-16); Blood Urea Nitrogen 15 mg/dL (7-17); Calcium 9.5 mg/dL (8.4-10.2); Carbon Dioxide 25 mmol/L (22-30); Chloride 94 mmol/L (98-107); Estimated CRCL calculation 49 ml/min; Estimated Glomerular Filt Rate > 60; Glucose 107 mg/dL (65-105); Potassium 4.5 mmol/L (3.4-5.0); Sodium 127 mmol/L (137-145)
[2021-05-12 06:04] LABS: Basophils Absolute Auto 0.1 K/mm3 (0.0-0.1); Basophils Percent Auto 0.8 % (0.2-1.2); Eosinophils Absolute Auto 0.1 K/mm3 (0-0.3); Eosinophils Percent Auto 0.8 % (0-4.4); Hematocrit 37.9 % (37.0-47.0); Hemoglobin 10.9 g/dL (12.0-15.0); Immature Granulocyte Absolute 0.02 K/mm3 (0.00-0.031); Immature Granulocyte Percent A 0.3 % (0-0.5); Immature Platelet Fraction Pct 3.5 % (0.9-11.2); Lymphocytes Absolute Auto 1.31 K/mm3 (0.9-3.2); Lymphocytes Percent Auto 20.9 % (18.3-44.2); Mean Corpuscular HGB Conc 28.8 g/dl (32-36); Mean Corpuscular Hemoglobin 19.1 pg (26-34); Mean Corpuscular Volume 66.3 fl (80-100); Mean Platelet Volume 9.4 fl (7.4-10.4); Monocytes Absolute Auto 0.5 K/mm3 (0.1-0.6); Monocytes Percent Auto 7.3 % (2.6-8.5); Neutrophils Absolute Auto 4.4 K/mm3 (1.3-6.7); Neutrophils Percent Auto 69.9 % (45.5-73.1); Platelet Count Result 334 k/mm3 (150-375); Red Blood Count 5.72 M/mm3 (4.2-5.4); Red Cell Distribution Width 31.4 % (11.5-14.5); White Blood Count 6.3 K/mm3 (4.5-10.0)
[2021-05-12 06:19] LABS: Ovalocytes 2+ (NORMAL); Platelet Estimate Adequate (Adequate)
[2021-05-12 06:20] LABS: Hypochromasia 1+ (NORMAL); Schistocytes 1+ (NORMAL)
[2021-05-12 08:00] VITALS: BP 100/80; PULSE 97; RESP 18; TEMP 36.4; O2SAT 99
[2021-05-12] MEDS: UMECLIDINIUM/VILANTEROL 62.5-25 MCG ELLIPTA 1 PUFF INHALATION (08:21)
[2021-05-12] MEDS: ENOXAPARIN 40 MG/0.4 ML SYRINGE SUB-Q (08:35)
[2021-05-12] MEDS: FAMOTIDINE 20 MG/2 ML VIAL IV PUSH (08:35)
--- NOTE | 2021-05-12 08:56 | PM.DS ---
DS: Admitting Diagnosis Admitting Diagnosis Admitting Diagnosis: (1) Chest pain: Code(s): R07.9 - Chest pain, unspecified Status: Acute Assessment and Plan: This resolved approximately 30 minutes prior to arrival to the emergency room. The patient's troponins were negative x3. Cardiology has been consulted. The patient is pain-free at this time. She had no further chest pain or palpitations. The patient stated that her chest discomfort started approximately 1 hour after she ate. Her last echo she had a JULIET on 04/19/2021. May consider discharge if patient's sodium level has improved some and if cardiology has seen the patient and agrees with discharge. (2) Atrial fibrillation with rapid ventricular response: Code(s): I48.91 - Unspecified atrial fibrillation Status: Acute Assessment and Plan: The patient wanted AFib with RVR but was given metoprolol p.o. in the emergency room which brought her heart rate down to the 90s She has a history of atrial fibrillation. However she is not typically on a beta-jason nor is she on any anticoagulation. Per previous cardiology Note, patient has a history of atrial fibrillation that was identified as outpatient. She was converted to normal sinus rhythm on her own. The patient was unable to tolerate ongoing systemic anticoagulation if she was on Xarelto at 1 point but was taken off due to melanotic stools. The patient stated that her blood pressure has been dropping with her diuretics. Cardiology has been consulted. Further recommendation per Cardiology. (3) Acute hyponatremia: Code(s): E87.1 - Hypo-osmolality and hyponatremia Status: Acute Assessment and Plan: Patient stated that she has been having a problem with her sodium since she has had an increase in her Lasix. Patient's sodium was 123 when she came to the ER. Patient's sodium levels typically 128-132. May consider revision of diuretics. I did order urine sodium and osmolarity. May consider nephrology consult if there is no improvement. Patient's diuretics are currently on hold at this time. Patient is gently being hydrated with normal saline. (4) CAD (coronary artery disease): Qualifiers: Coronary Disease-Associated Artery/Lesion type: [place] artery [place] vs. transplanted heart: [place] heart Associated angina: without angina Qualified Code(s): I25.10 - Atherosclerotic heart disease of [place] coronary artery without angina pectoris Code(s): I25.10 - Atherosclerotic heart disease of [place] coronary artery without angina pectoris Status: Chronic Assessment and Plan: The patient is currently NPO until further evaluation per Cardiology. The patient no longer has any chest pain. She has a history of having 1 coronary stent. Troponins are all negative this Admission. Patient no longer has any complaints of any chest pain. (5) Mitral valve regurgitation: Code(s): I34.0 - Nonrheumatic mitral (valve) insufficiency Status: Acute Assessment and Plan: The patient told me that she has an appointment with Dr. Heber yu due to discuss aortic valve repair. Patient's last JULIET was on 04/19/2021 and it was noted that normal mitral valve leaflets with no disrupted chordal structure. Evidence of posterior papillary muscle dysfunction with Malcoaptation and significant a centric jet of MR. (6) COPD (chronic obstructive pulmonary disease): Qualifiers: COPD type: unspecified COPD Qualified Code(s): J44.9 - Chronic obstructive pulmonary disease, unspecified Code(s): J44.9 - Chronic obstructive pulmonary disease, unspecified Status: Acute Assessment and Plan: we have discussed smoking cessation for approximately 10 minutes. The patient was given information on smoking cessation. (7) Tobacco dependence: Code(s): F17.200 - Nicotine dependence, unspecified, uncomplicated Status: Chronic Assess
--- NOTE | 2021-05-12 11:19 | PM.PNCARD ---
Progress Note: A&P Assessment and Plan (1) Atrial fibrillation with rapid ventricular response: Code(s): I48.91 - Unspecified atrial fibrillation Status: Acute Assessment and Plan: Back in sinus rhythm. Chest pain has resolved. Not on anticoagulation his recurrent melanotic stools. Atrial fibrillation likely being driven by her mitral regurgitation (2) Chest pain: Code(s): R07.9 - Chest pain, unspecified Status: Acute Assessment and Plan: now resolved. Cannot exclude angina but most likely secondary to AFib. Troponins negative x3 (3) CAD (coronary artery disease): Qualifiers: Coronary Disease-Associated Artery/Lesion type: [place] artery [place] vs. transplanted heart: [place] heart Associated angina: without angina Qualified Code(s): I25.10 - Atherosclerotic heart disease of [place] coronary artery without angina pectoris Code(s): I25.10 - Atherosclerotic heart disease of [place] coronary artery without angina pectoris Status: Chronic Assessment and Plan: previous OM stent 2004. Continue current medical therapy (4) Mitral valve regurgitation: Code(s): I34.0 - Nonrheumatic mitral (valve) insufficiency Status: Acute Assessment and Plan: has appointment with CTS at [facility] on (5) Tobacco dependence: Code(s): F17.200 - Nicotine dependence, unspecified, uncomplicated Status: Chronic Assessment and Plan: counseling performed (6) Hyponatremia: Code(s): E87.1 - Hypo-osmolality and hyponatremia Status: Acute Assessment and Plan: Improved since admission. Patient says prior to admission she was drinking lots of water because she felt dehydrated due to diuretics. Counseled patient on free water restriction. Will obtain BMP in one week. (7) Congestive heart failure: Qualifiers: Heart failure chronicity: acute Heart failure type: unspecified Qualified Code(s): I50.9 - Heart failure, unspecified Code(s): I50.9 - Heart failure, unspecified Status: Acute Assessment and Plan: Related valvular heart disease. Continue diuretics and current medical therapy. 40mg furosemide daily. She is to keep in close contact with the office in the next few weeks with any s/s volume overload. Subjective Date/time seen: 05/12/21 11:19 Date of service 05/12/21: She is feeling well today. No chest pain, no shortness of breath. Was supposed to be discharged yesterday, however she remained hyponatremic and was kept overnight. She will go home today. Review of Systems Review of Systems: All systems reviewed & are unremarkable except as noted in HPI and below Constitutional: Constitutional: Denies excessive sweating, Denies headache(s) and Denies weakness Eyes: Eyes: Denies blurry vision ENT: Reports Normal hearing present, Denies headache(s) and Denies neck pain Cardiovascular: Cardiovascular: Denies chest pain, Denies palpitations and Denies dyspnea Respiratory: Respiratory: Denies cough and Denies dyspnea Gastrointestinal: Gastrointestinal: Reports abdominal pain Genitourinary: Genitourinary: Denies hematuria and Denies flank pain Musculoskeletal: Musculoskeletal: Denies neck pain and Denies numbness Integumentary/Breasts: Skin/Breast: Denies dry skin Neurologic: Reports Normal hearing present, Denies confusion, Denies headache(s), Denies numbness and Denies weakness Psychiatric: Psychiatric: Denies anxiety and Denies confusion Endocrine: Endocrine: Denies excessive sweating and Denies palpitations Allergic/Immunologic: Allergic/Immunologic: Denies GI upset with certain foods Exam Narrative: Exam Narrative: Pleasant older lady standing at the bedside. Alert and oriented. Const: General: comfortable and no acute distress; No confusion Orientation/consciousness: No confusion HENMT: General nose exam: Normal nares present Eyes: Sclera: sclerae marcella
== END 2021-05-12 12:09 | disposition home or self-care (01) ==
LOC: ANHED 23:55 → ANHICU 05-11 04:11
PROVIDERS: Nurse Practitioner; Admitting Provider Internal Medicine; Emergency Provider General Practice; PCP Family Medicine Adolescent Medicine; Visit Provider Internal Medicine
DX: R07.9 Chest pain, unspecified (principal); I48.91 Unspecified atrial fibrillation; E87.1 Hypo-osmolality and hyponatremia; I11.0 Hypertensive heart disease with heart failure; I50.9 Heart failure, unspecified; I25.10 Atherosclerotic heart disease of native coronary artery without angina pectoris; I35.0 Nonrheumatic aortic (valve) stenosis; I34.0 Nonrheumatic mitral (valve) insufficiency; J44.9 Chronic obstructive pulmonary disease, unspecified; E78.5 Hyperlipidemia, unspecified; I25.2 Old myocardial infarction; F32.9 Major depressive disorder, single episode, unspecified; Z95.5 Presence of coronary angioplasty implant and graft; Z79.82 Long term (current) use of aspirin; F17.210 Nicotine dependence, cigarettes, uncomplicated
CPT/HCPCS: 36415; 71046; 80048; 83735; 83930; 84300; 84443; 84484; 85025; 85055; 85610; 85730; 93005; 94640; 96361; 96372; 96374; 96376; 99285; A9270; G0378; J1650; J7030; J7040

== ENCOUNTER 2021-05-14 15:08 | Outpatient (CLI) | payer MEDICARE, SELFPAY ==
[2021-05-14 15:46] LABS: Anion Gap 6 mmol/L (8-16); Blood Urea Nitrogen 15 mg/dL (7-17); Calcium 9.7 mg/dL (8.4-10.2); Carbon Dioxide 28 mmol/L (22-30); Chloride 97 mmol/L (98-107); Estimated Glomerular Filt Rate 55; Glucose 109 mg/dL (65-110); Potassium 4.5 mmol/L (3.4-5.0); Sodium 131 mmol/L (137-145)
== END 2021-05-14 15:09 | disposition home or self-care (01) ==
LOC: ANHLAB 15:11
PROVIDERS: PCP Family Medicine Adolescent Medicine; Visit Provider Nurse Practitioner
DX: I50.9 Heart failure, unspecified (principal)
CPT/HCPCS: 36415; 80048

== ENCOUNTER 2021-06-09 15:45 | Outpatient (NON) | payer MEDICARE, SELFPAY ==
[2021-06-09 17:48] LABS: Anion Gap 7 mmol/L (8-16); Blood Urea Nitrogen 21 mg/dL (7-17); Calcium 9.3 mg/dL (8.4-10.2); Carbon Dioxide 31 mmol/L (22-30); Chloride 89 mmol/L (98-107); Estimated Glomerular Filt Rate 55; Glucose 138 mg/dL (65-110); Potassium 3.8 mmol/L (3.4-5.0); Sodium 127 mmol/L (137-145)
== END 2021-06-09 15:46 | disposition home or self-care (01) ==
PROVIDERS: PCP Family Medicine Adolescent Medicine
DX: I25.10 Atherosclerotic heart disease of native coronary artery without angina pectoris (principal)
CPT/HCPCS: 36415; 80048

== ENCOUNTER 2021-07-09 16:24 | Inpatient (IN) | payer MEDICARE, SELFPAY ==
[2021-07-09] VITALS (11 sets, daily range): BP systolic 97–141; BP diastolic 74–105; PULSE 60–185; RESP 16–26; TEMP 36.4–36.8; O2SAT 95–99; BMI 32.3
--- NOTE | ~2021-07-09 | US_ITS ---
EXAMINATION: US venous doppler LE EXAM DATE: 07/10/2021 10:27 INDICATION: Lower extremity edema. TECHNIQUE: Multiple grayscale, color flow and Doppler images of the lower extremity deep venous syste ms bilaterally were obtained and reviewed. Comparison is made to prior examination from 01/10/2021. FINDINGS: Right side: The right common femoral, femoral and profunda veins demonstrate normal color flow, respi ratory variation, augmentation and compressibility. Compressibility, color flow confirmed within the right popliteal, posterior tibial, peroneal, and greater saphenous veins. Left side: The left common femoral, femoral and profunda veins demonstrate normal color flow, respira tory variation, augmentation and compressibility. Compressibility, color flow confirmed within the l eft popliteal, posterior tibial, peroneal, and greater saphenous veins. IMPRESSION: 1. No lower extremity deep venous thrombosis bilaterally. Reviewed, dictated and finalized at location A.
--- NOTE | ~2021-07-09 | XR_ITS ---
XR chest 2V 07/09/2021 17:04 Indication: CHF exacerbation. Dyspnea. Procedure: PA and lateral views of the chest Comparison: Comparison to multiple prior studies sequentially, with oldest reviewed study dated 03/14. Findings: Status post median sternotomy for CABG. There is a prosthetic heart valve. Cardiomegaly. Sm all left pleural effusion. Left basilar atelectasis. No edema or pneumothorax. No acute osseous abnor mality. Impression: 1: Small left pleural effusion. 2: Left basilar atelectasis. 3: Cardiomegaly. Reviewed, dictated and finalized at location A. Impression: 1: Small left pleural effusion. 2: Left basilar atelectasis. 3: Cardiomegaly.
--- NOTE | 2021-07-09 16:36 | ECG_ITS ---
Measurements Intervals [place] Rate: 120 P: -23 CO: 219 QRS: -37 QRSD: 185 T: 124 QT: 366 QTc: 517 Interpretive Statements ATRIAL FLUTTER/TACHYCARDIA WITH RAPID VENTRICULAR RESPONSE LEFT AXIS DEVIATION LEFT BUNDLE BRANCH BLOCK BASELINE WANDER- II, III, AVF, V5-V6 ABNORMAL ECG Electronically Signed On 07-09-2021 19:08:52 CDT by Isac Dey D.O.
[2021-07-09 16:58] LABS: Basophils Absolute Auto 0.1 K/mm3 (0.0-0.1); Basophils Percent Auto 0.7 % (0.2-1.2); Eosinophils Absolute Auto 0.1 K/mm3 (0-0.3); Eosinophils Percent Auto 1.1 % (0-4.4); Hematocrit 48.2 % (37.0-47.0); Hemoglobin 15.1 g/dL (12.0-15.0); Immature Granulocyte Absolute 0.03 K/mm3 (0.00-0.031); Immature Granulocyte Percent A 0.4 % (0-0.5); Immature Platelet Fraction Pct 4.6 % (0.9-11.2); Lymphocytes Absolute Auto 0.98 K/mm3 (0.9-3.2); Lymphocytes Percent Auto 13.4 % (18.3-44.2); Mean Corpuscular HGB Conc 31.3 g/dl (32-36); Mean Corpuscular Hemoglobin 26.9 pg (26-34); Mean Corpuscular Volume 85.9 fl (80-100); Mean Platelet Volume 9.3 fl (7.4-10.4); Monocytes Absolute Auto 0.6 K/mm3 (0.1-0.6); Monocytes Percent Auto 8.3 % (2.6-8.5); Neutrophils Absolute Auto 5.6 K/mm3 (1.3-6.7); Neutrophils Percent Auto 76.1 % (45.5-73.1); Platelet Count Result 298 k/mm3 (150-375); Red Blood Count 5.61 M/mm3 (4.2-5.4); Red Cell Distribution Width 20.4 % (11.5-14.5); White Blood Count 7.3 K/mm3 (4.5-10.0)
[2021-07-09 17:09] LABS: Prothrombin Time 13.1 Seconds (11.1-14.7)
[2021-07-09 17:10] LABS: Partial Thromboplastin Time 29.9 SECONDS (22.3-36.8)
[2021-07-09 17:12] LABS: Anion Gap 8 mmol/L (8-16); Blood Urea Nitrogen 22 mg/dL (7-17); Calcium 9.6 mg/dL (8.4-10.2); Carbon Dioxide 24 mmol/L (22-30); Chloride 98 mmol/L (98-107); Estimated CRCL calculation 33 ml/min; Estimated Glomerular Filt Rate 40; Glucose 115 mg/dL (65-110); Potassium 5.1 mmol/L (3.4-5.0); Sodium 130 mmol/L (137-145)
[2021-07-09 17:26] LABS: NT Pro B Type Natriuretic Pept 28500 pg/mL (5-100)
--- NOTE | 2021-07-09 17:41 | ED.SOB ---
HPI - SOB/Dyspnea General Chief Complaint: Shortness of Breath/Dyspnea Stated Complaint: SHORTNESS OF BREATH Time Seen by Provider: 07/09/21 17:31 Source: patient Limitations: no limitations History of Present Illness HPI Narrative: Patient 71 years old white female came from home with her complaining of increased shortness of breath and swelling of the lower extremity over the last few days. Patient is to be on Lasix 60 mg twice daily, changed to 40 mg once a day by her family physician 4 days ago. Patient denies any fever, chills, nausea, vomiting, chest pain. Patient is status post cardiac bypass 2 months ago, is a smoker, did not get vaccinated for COVID-19 and she is full code. Related Data Home Medications Medication Instructions Recorded Confirmed Stiolto Respimat 1 inh INHALATION BID 01/10/21 05/11/21 aspirin 81 mg PO DAILY 04/15/21 05/11/21 pantoprazole 40 mg PO DAILY 04/15/21 05/11/21 spironolactone 50 mg PO DAILY 04/15/21 05/11/21 furosemide 40 mg PO USEASDIRECTD 05/11/21 05/11/21 furosemide 80 mg PO USEASDIRECTD 05/11/21 05/11/21 Allergies Allergy/AdvReac Type Severity Reaction Status Date / Time No Known Allergies Allergy Verified 05/10/21 23:30 Review of Systems Review of Systems: CONSTITUTIONAL: Denies fever, chills, or sweats. EYES: Denies visual changes, redness, or discharge. ENT: Denies rhinorrhea, congestion, sore throat, or otalgia. CARDIOVASCULAR: Denies chest pain, palpitations, or edema. RESPIRATORY: Denies cough or dyspnea. GASTROINTESTINAL: Denies abdominal pain, nausea, vomiting, or diarrhea. GENITOURINARY: Denies dysuria or hematuria. SKIN: Denies rash or itching. MUSCULOSKELETAL: Denies back pain, joint pain, or myalgia. NEUROLOGIC: Denies headache, numbness, or weakness. PSYCHIATRIC: Denies anxiety or depression. [facility] Past Medical History Medical History Acute exacerbation of CHF (congestive heart failure) Aortic stenosis Atrial fibrillation CAD (coronary artery disease) COPD (chronic obstructive pulmonary disease) Depression Heart attack Hyperlipidemia Hypertension Nephrolithiasis Surgical History Surgical History H/O tubal ligation History of coronary artery stent placement Family History Family History Father Cancer Mother Acute myocardial infarction Congestive heart failure Son Diabetes mellitus Sibling Chronic obstructive pulmonary disease Social History Social History Social History: The patient lives with her and her son. 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 She is a full code. The patient still smokes about half a pack a cigarettes a day for 50 years. Prior to COVID-19 the patient was working for the [employer]. The patient has 3 sons. She does not use any alcohol marijuana or illicit drugs. Smoking packs per day: 0.5 Smoking cigarettes per day: 10.0 Years smoked: 50 Smoking pack-years: 25.00 Smoking status: Current every day smoker Tobacco type: cigarettes Second hand tobacco smoke exposure: Yes Alcohol intake: never Substance use: never Gender identity (if verbalized by the patient): Female Spiritual care concerns: No Exam Narrative: General appearance: Well-developed, well-nourished Skin: Normal color 2+ edema mainly on the left lower extremity Head: Normocephalic, nontraumatic Eyes: Clear conjunctiva ENT: Oropharynx normal, ears normal, nose normal Neck: Supple, nontender Chest and respiratory: Airway patent, no respiratory distress, no accessory muscle use, basal rales bilaterally Heart: Regular rate/rhythm Abdomen: Soft, nontender, no organomegaly, quiet bowel sounds Vascular
[2021-07-09] MEDS: FUROSEMIDE INJ 40 MG/4 ML VIAL IV PUSH (18:27)
[2021-07-09] MEDS: ENOXAPARIN 80 MG/0.8 ML SYRINGE SUB-Q (18:27)
[2021-07-09] MEDS: NITROGLYCERIN OINTMENT 1 INCH DOSE TRANSDERM (18:27)
--- NOTE | 2021-07-09 20:05 | ADMGEN ---
This patient, Monica Rangel, was admitted to [facility]. Patient/family oriented to hospital policies and general routines including ID bracelet, bed and alarms, visiting hours, pain management, procedures, bathroom and other care routines, personal items, smoking policy, room service/diet, and visiting hours. Information on how to activate the Rapid Response Team has been discussed. Patient/Family are encouraged to report perceived risks to care and to ask questions if they do not understand what they are told or what they should do.
[2021-07-09 21:37] LABS: Troponin I 0.167 ng/mL (0.000-0.034)
--- NOTE | 2021-07-09 22:52 | PC.NURSE ---
SPOKE WITH TO MAKE AWARE OF TROP II DRAWN AT 2099 0.167H; UP FROM 1641 TROP I OF 0.120 AND PT 60SEC RUN POSS VTACH THEN RETURN TO NST WITHOUT PT SYMPTOMS THAT OCCURRED 2099 AND RESOLVED. NO DEFINITE REPEAT INCIDENT. DANIEL MADE AWARE BETTINA NOT YET ABLE TO EVAL PT OR GIVE ADMISSION ORDERS; AWARE OF PT ADMISSION AND HOSPITALIST CONSULT. PT SLEEPING.
[2021-07-10] VITALS (19 sets, daily range): BP systolic 92–119; BP diastolic 69–78; PULSE 74–114; RESP 16–24; TEMP 35.9–36.7; O2SAT 95–98
--- NOTE | 2021-07-10 00:23 | PM.IMHP ---
H&P: HPI History of Present Illness Date/Time: 07/09/21 [id number] this is a 71-year-old female who has a history of coronary artery disease, valvular disease, COPD and congestive heart failure. The patient had a 2 vessel CABG with valve repair and valve replaced on May 24, 2021 At [facility]. The patient stated she was doing well until the last few days she has had increased shortness of breath and increased swelling to her lower extremities. Her physician recently changed her Lasix from 60 mg twice a day to 40 mg once a day this was approximately 4 days ago. Shortly after that the patient became more short of breath and had more edema. Patient denies any fever chills no nausea vomiting diarrhea. No chest pain. The patient stated that she did not receive any vaccines for COVID-19. Chest x-ray was read as small left pleural effusion. Left basilar atelectasis. Cardiomegaly. Potassium 5.1 sodium 130. Creatinine 1.3 BUN 22. Patient denies any chest pain at this time. Her troponin was 0.120 and 0.167 respectively. BNP was 28 500. The patient was given Lasix, nitro and subcu Lovenox. The patient also has a history of atrial fibrillation and was told that she should never be on any anticoagulation because she recently had a GI bleed. The patient is being admitted to inpatient services on the date of service of 07/09/2021 Chief Complaint: Shortness of breath and swelling Review of Systems Review of Systems: All systems reviewed & are unremarkable except as noted in HPI and below Constitutional: Constitutional: Reports as per HPI and Reports no additional constitutional complaints Eyes: Eyes: Reports as per HPI and Reports no additional eye complaints ENT: Reports system reviewed and no additional complaints, except as documented and Reports Normal hearing present Cardiovascular: Cardiovascular: Reports no additional cardiovascular complaints Respiratory: Respiratory: Reports no additional respiratory complaints and Reports no additional respiratory complaints Gastrointestinal: Gastrointestinal: Reports as per HPI and Reports no additional gastrointestinal complaints Musculoskeletal: Musculoskeletal: Reports no additional musculoskeletal complaints Integumentary/Breasts: Skin/Breast: Reports system reviewed and no additional complaints, except as docu and Reports as per HPI Neurologic: Reports system reviewed and no additional complaints, except as documented, Reports as per HPI and Reports Normal hearing present Psychiatric: Psychiatric: Reports no additional psychiatric complaints and Reports as per HPI Endocrine: Endocrine: Reports no additional endocrine complaints Hematologic/Lymphatic: Hematologic/Lymphatic: Reports no additional hematologic/lymphatic complaints Allergic/Immunologic: Allergic/Immunologic: Reports no additional allergic/immunologic complaints [facility] Past Medical History Medical History (Updated 07/10/21 @ 00:31 by Martine Fernando NP) Acute exacerbation of CHF (congestive heart failure) Aortic stenosis Atrial fibrillation CAD (coronary artery disease) COPD (chronic obstructive pulmonary disease) Depression Heart attack History of GI bleed Shortly after her CABG Hyperlipidemia Hypertension Nephrolithiasis Surgical History Surgical History (Updated 07/10/21 @ 00:31 by Martine Fernando NP) H/O tubal ligation H/O two vessel coronary artery bypass graft Heart valve replaced Patient stated that she had a 1 valve repair and 1 hard bowel replace with a PIg valve History of coronary artery stent placement S/P coronary artery stent placement Family History Family History Father Cancer Mother Acute myocardial infarction Congestive heart failure Son Diabetes mellitus Sibling Chronic obstructive pulmonary disease Social History Social History Social History: The patient li
[2021-07-10] MEDS: NITROGLYCERIN OINTMENT 1 INCH DOSE TRANSDERM ×3 (05:31→17:04)
[2021-07-10 06:15] LABS: Basophils Absolute Auto 0.1 K/mm3 (0.0-0.1); Basophils Percent Auto 0.9 % (0.2-1.2); Eosinophils Absolute Auto 0.1 K/mm3 (0-0.3); Eosinophils Percent Auto 1.4 % (0-4.4); Hematocrit 44.2 % (37.0-47.0); Hemoglobin 13.7 g/dL (12.0-15.0); Immature Granulocyte Absolute 0.02 K/mm3 (0.00-0.031); Immature Granulocyte Percent A 0.4 % (0-0.5); Lymphocytes Absolute Auto 1.14 K/mm3 (0.9-3.2); Lymphocytes Percent Auto 20.4 % (18.3-44.2); Mean Corpuscular Volume 87.2 fl (80-100); Mean Platelet Volume 9.4 fl (7.4-10.4); Monocytes Absolute Auto 0.5 K/mm3 (0.1-0.6); Monocytes Percent Auto 8.6 % (2.6-8.5); Neutrophils Absolute Auto 3.8 K/mm3 (1.3-6.7); Neutrophils Percent Auto 68.3 % (45.5-73.1); Platelet Count Result 253 k/mm3 (150-375); Red Blood Count 5.07 M/mm3 (4.2-5.4); Red Cell Distribution Width 20.5 % (11.5-14.5); White Blood Count 5.6 K/mm3 (4.5-10.0)
[2021-07-10 06:24] LABS: Alanine Aminotransferase 11 U/L (4-35); Albumin Level 3.7 g/dL (3.5-5.1); Alkaline Phosphatase 88 U/L (38-126); Anion Gap 7 mmol/L (8-16); Aspartate Amino Transferase 23 U/L (14-36); Bilirubin,Total 0.4 mg/dL (0.2-1.3); Blood Urea Nitrogen 21 mg/dL (7-17); Calcium 9.5 mg/dL (8.4-10.2); Carbon Dioxide 29 mmol/L (22-30); Chloride 96 mmol/L (98-107); Estimated CRCL calculation 35 ml/min; Estimated Glomerular Filt Rate 40; Glucose 107 mg/dL (65-110); Magnesium 2.1 mg/dL (1.6-2.3); Potassium 4.6 mmol/L (3.4-5.0); Sodium 132 mmol/L (137-145)
[2021-07-10 06:26] LABS: Lactic Acid Reflex 1.4 mmol/L (0.7-2.1)
[2021-07-10 08:25] LABS: Free T4 Free Thyroxine Reflex 1.13 ng/dL (0.78-2.19)
[2021-07-10] MEDS: AMIODARONE HCL 200 MG TABLET PO (08:38)
[2021-07-10] MEDS: FERROUS SULFATE 324 MG TABLET PO ×2 (08:39→16:35)
[2021-07-10] MEDS: ASPIRIN 325 MG TABLET PO (08:39)
[2021-07-10] MEDS: ENOXAPARIN 80 MG/0.8 ML SYRINGE SUB-Q (08:40)
[2021-07-10] MEDS: ATORVASTATIN 40 MG TABLET 80 MG PO (08:40)
[2021-07-10] MEDS: PANTOPRAZOLE 40 MG TABLET PO (08:41)
[2021-07-10] MEDS: FUROSEMIDE INJ 40 MG/4 ML VIAL IV PUSH ×2 (08:41→20:28)
[2021-07-10] MEDS: SPIRONOLACTONE 50 MG TABLET PO (08:41)
--- NOTE | 2021-07-10 09:14 | PM.IMPN ---
Progress Note: A&P Assessment and Plan (1) CHF (congestive heart failure): Qualifiers: Heart failure chronicity: unspecified Heart failure type: unspecified Qualified Code(s): I50.9 - Heart failure, unspecified Code(s): I50.9 - Heart failure, unspecified Status: Acute Assessment and Plan: - JULIET from 04/19/21 significant for EF of 40%-45%, Left ventricular enlargement. - Continue IVP Lasix of 40 mg BID and also continue Spironolactone 50 mg po daily. - Awaiting Cardiology recommendations. - Continue Telemetry. - Daily Weights - Accurate I&O. (2) Elevated troponin: Code(s): R77.8 - Other specified abnormalities of plasma proteins Status: Acute Assessment and Plan: - Remains elevated w/ 2nd slightly more increased. Continue to trend. - Monitor Telemetry - Monitor patient for any Chest Pain. - It is suspected that in the absence of acute ACS, the rise in Troponin is caused by the patient's current CHF Exacerbation and her current FRANK. (3) FRANK (acute kidney injury): Code(s): N17.9 - Acute kidney failure, unspecified Status: Acute Assessment and Plan: - Creatinine and BUN unchanged today and measures .01/17 - Monitor serum creatinine and BUN. (4) Atrial fibrillation with rapid ventricular response: Code(s): I48.91 - Unspecified atrial fibrillation Status: Resolved Assessment and Plan: - Currently in NSR per telemetry. - Continue to monitor. - Continue Amiodarone 200 mg po daily. (5) CAD (coronary artery disease): Qualifiers: Associated angina: without angina Coronary Disease-Associated Artery/Lesion type: [place] artery [place] vs. transplanted heart: [place] heart Qualified Code(s): I25.10 - Atherosclerotic heart disease of [place] coronary artery without angina pectoris Code(s): I25.10 - Atherosclerotic heart disease of [place] coronary artery without angina pectoris Status: Chronic Assessment and Plan: - Recent CABG in April of this year. (6) COPD (chronic obstructive pulmonary disease): Qualifiers: COPD type: unspecified COPD Qualified Code(s): J44.9 - Chronic obstructive pulmonary disease, unspecified Code(s): J44.9 - Chronic obstructive pulmonary disease, unspecified Status: Acute Assessment and Plan: - Discontinue hand held inhalers. - Duoneb Q6 hrs - Albuterol nebs Q4 hrs prn wheezing/dyspnea. (7) Hypertension: Qualifiers: Hypertension type: unspecified Qualified Code(s): I10 - Essential (primary) hypertension Code(s): I10 - Essential (primary) hypertension Status: Chronic Assessment and Plan: - Continue current mediacations of Lasix 40 mg po BID and Spironolactone 50 mg po daily. (8) Hypothyroidism: Code(s): E03.9 - Hypothyroidism, unspecified Status: Suspected Assessment and Plan: - Suspected to be chronic, but newly diagnosed. - Pt. is symptomatic. - TSH is 16.7, but T4 is normal. - Pt. is currently symptomatic. - Start low dose Synthroid of 0.125 mg po Daily. Subjective Date/time seen: 07/10/21 09:14 Pt. with continued complaints of edema to the BLE and mild dyspnea at times. She denies any Chest pain. Pt. does report that she is tired and has very dry skin as it is noted that she has an elevated TSH. However, her T4 remains normal at this time. She denies any heart palpitations. She notes that her dose of Lasix had been decreased recently by Cardiology from 60 mg daily down to 40 mg daily. She does not have any N/V/D. Review of Systems Review of Systems: All systems reviewed & are unremarkable except as noted in HPI and below Exam Const: General: comfortable and no acute distress HENMT: Mouth: Yes moist mucous membranes Neck: Neck: supple and no JVD Chest: Chest palpation & inspection: other (Well healed midline sternotomy incision present.) Resp: Auscultation: wheezes expiratory
[2021-07-10 09:18] LABS: Total Triiodothyronine (T3) 0.93 NG/ML (0.97-1.69)
--- NOTE | 2021-07-10 10:57 | PC.NURSE ---
Transport here to take pt to radiology at [id number]
[2021-07-10] MEDS: LEVOTHYROXINE SODIUM 12.5 MCG TABLET PO (11:25)
--- NOTE | 2021-07-10 13:41 | PM.CNCAR ---
Assessment and Plan Assessment and plan (1) Acute exacerbation of CHF (congestive heart failure): Qualifiers: Heart failure type: unspecified Qualified Code(s): I50.9 - Heart failure, unspecified Code(s): I50.9 - Heart failure, unspecified Status: Acute Assessment and Plan: Secondary to outpatient reduction in diuretic therapy, heart failure with mild LV systolic dysfunction preoperatively by JULIET exacerbated by tachyarrhythmia atrial flutter with RVR as well as SVT despite oral amiodarone. Continue IV Lasix 40 mg q.12 hours for now. Accurate input and output, daily weight, less than 2 g daily sodium intake. Anticipate change to oral diuretic regimen Lasix 60 mg p.o. b.i.d. with continuation of spironolactone in the next 24 hours. Add low-dose metoprolol 12.5 mg b.i.d. as tolerated. 2D echocardiogram on Monday if patient remains hospitalized over the weekend. Otherwise will obtain as outpatient post discharge. Spent 65 minutes in the care of this patient including examination at bedside, discussions/counseling, chart review, and medical decision making. (2) Elevated troponin: Code(s): R77.8 - Other specified abnormalities of plasma proteins Status: Acute Assessment and Plan: Status post 2 vessel CABG May 24, 2021. Type 2 infarct secondary to demand ischemia with rapid SVT, acute on chronic decompensated heart failure not secondary to acute coronary syndrome and/or plaque rupture. Discontinue therapeutic Lovenox. Patient is not an anticoagulation candidate due to history of recurrent melanotic stools. Lower extremity venous Doppler is negative. No clinical indication patient presents with pulmonary embolism. Currently stable on room air. Continue aspirin statin (3) Atrial flutter with rapid ventricular response: Code(s): I48.92 - Unspecified atrial flutter Status: Acute Assessment and Plan: Paroxysmal on amiodarone 200 mg daily. Currently sinus rhythm with LBBB. Caution with AV clover blocking agents but suspect her SVT and a flutter with RVR and history of paroxysmal atrial fibrillation contribute to exacerbation of CHF. Lower embolic stroke risk due to ligation of left atrial appendage. Continue amiodarone 200 mg daily for now. Will increase temporarily if recurrent atrial tachyarrhythmia noted. (4) SVT (supraventricular tachycardia): Code(s): I47.1 - Supraventricular tachycardia Status: Acute Assessment and Plan: Very rapid SVT up to 190 beats per minute. Cannot entirely exclude atrial flutter with one-to-one AV block although probable SVT/AVNRT very difficult to determine given underlying LBBB. She may benefit from EP referral and evaluation as an outpatient. Further recommendation to follow depending on patient's tolerance medical therapy and recurrence of tachyarrhythmia. (5) Contraindication to anticoagulation therapy: Code(s): Z53.09 - Procedure and treatment not carried out because of other contraindication Status: Acute Assessment and Plan: History recurrent melanotic stools not a candidate previously noted. (6) History of mitral valve replacement with bioprosthetic valve: Code(s): Z95.3 - Presence of xenogenic heart valve Status: Acute Assessment and Plan: 31 mm Gilbert valve prosthetic mitral valve replacement. Prophylactic antibiotics. (7) H/O tricuspid valve annuloplasty: Code(s): Z98.890 - Other specified postprocedural states Status: Acute Assessment and Plan: Stable. (8) LBBB (left bundle branch block): Code(s): I44.7 - Left bundle-branch block, unspecified Status: Acute Assessment and Plan: Chronic. (9) COPD (chronic obstructive pulmonary disease): Qualifiers: COPD type: unspecified COPD Qualified Code(s): J44.9 - Chronic obstructive pulmonary disease, unspecified Code(s): J44.9 - Chronic obstructive pulmonary disease, uns
--- NOTE | 2021-07-10 13:54 | ECG_ITS ---
Measurements Intervals [place] Rate: 81 P: 54 NC: 162 QRS: 6 QRSD: 178 T: 120 QT: 456 QTc: 531 Interpretive Statements SINUS RHYTHM LEFT BUNDLE BRANCH BLOCK BASELINE ARTIFACT- II, III, AVR, AVL, AVF, V5 ABNORMAL ECG Electronically Signed On 07-10-2021 15:46:50 CDT by Isac Dey D.O.
[2021-07-10] MEDS: IPRATROPIUM BR 0.02% INH SOLN 0.5 MG/2.5 ML VIAL INHALATION ×2 (15:58→21:10)
[2021-07-10] MEDS: ALBUTEROL SULFATE NEB 2.5 MG/0.5 ML INH INHALATION (15:59)
[2021-07-10 17:25] LABS: Troponin I 0.618 ng/mL (0.000-0.034)
--- NOTE | 2021-07-10 17:31 | PC.NURSE ---
Attempted to report the 1700 critical Troponin to ordering provider (Sarah Mckeon NP) at 1730, but she stated her call ended at 1645. Results called to Dr. Us, no further orders received.
[2021-07-10] MEDS: METOPROLOL TARTRATE 12.5 MG TABLET PO (20:29)
[2021-07-11] VITALS (15 sets, daily range): BP systolic 93–109; BP diastolic 57–73; PULSE 68–79; RESP 16–20; TEMP 36.2–36.6; O2SAT 92–97
[2021-07-11] MEDS: NITROGLYCERIN OINTMENT 1 INCH DOSE TRANSDERM ×2 (00:30→06:24)
[2021-07-11] MEDS: IPRATROPIUM BR 0.02% INH SOLN 0.5 MG/2.5 ML VIAL INHALATION ×3 (02:39→14:31)
[2021-07-11 06:16] LABS: Basophils Absolute Auto 0.1 K/mm3 (0.0-0.1); Basophils Percent Auto 1.2 % (0.2-1.2); Eosinophils Absolute Auto 0.1 K/mm3 (0-0.3); Eosinophils Percent Auto 1.6 % (0-4.4); Hematocrit 46.1 % (37.0-47.0); Hemoglobin 14.3 g/dL (12.0-15.0); Immature Granulocyte Absolute 0.02 K/mm3 (0.00-0.031); Immature Granulocyte Percent A 0.4 % (0-0.5); Immature Platelet Fraction Pct 4.9 % (0.9-11.2); Lymphocytes Absolute Auto 0.86 K/mm3 (0.9-3.2); Lymphocytes Percent Auto 17.2 % (18.3-44.2); Mean Corpuscular Hemoglobin 27.2 pg (26-34); Mean Corpuscular Volume 87.6 fl (80-100); Mean Platelet Volume 10.1 fl (7.4-10.4); Monocytes Absolute Auto 0.4 K/mm3 (0.1-0.6); Monocytes Percent Auto 7.8 % (2.6-8.5); Neutrophils Absolute Auto 3.6 K/mm3 (1.3-6.7); Neutrophils Percent Auto 71.8 % (45.5-73.1); Platelet Count Result 259 k/mm3 (150-375); Red Blood Count 5.26 M/mm3 (4.2-5.4); Red Cell Distribution Width 20.2 % (11.5-14.5)
[2021-07-11] MEDS: LEVOTHYROXINE SODIUM 12.5 MCG TABLET PO (06:24)
[2021-07-11 06:58] LABS: Alanine Aminotransferase 12 U/L (4-35); Albumin Level 3.8 g/dL (3.5-5.1); Alkaline Phosphatase 90 U/L (38-126); Anion Gap 9 mmol/L (8-16); Aspartate Amino Transferase 22 U/L (14-36); Bilirubin,Total 0.5 mg/dL (0.2-1.3); Blood Urea Nitrogen 19 mg/dL (7-17); Calcium 9.1 mg/dL (8.4-10.2); Carbon Dioxide 28 mmol/L (22-30); Chloride 94 mmol/L (98-107); Estimated CRCL calculation 37 ml/min; Estimated Glomerular Filt Rate 44; Glucose 102 mg/dL (65-110); Potassium 4.1 mmol/L (3.4-5.0); Sodium 131 mmol/L (137-145)
[2021-07-11 07:06] LABS: NT Pro B Type Natriuretic Pept 22100 pg/mL (5-100)
[2021-07-11] MEDS: AMIODARONE HCL 200 MG TABLET PO (08:26)
[2021-07-11] MEDS: ASPIRIN 325 MG TABLET PO (08:26)
[2021-07-11] MEDS: FERROUS SULFATE 324 MG TABLET PO (08:27)
[2021-07-11] MEDS: ATORVASTATIN 40 MG TABLET 80 MG PO (08:27)
[2021-07-11] MEDS: ENOXAPARIN 40 MG/0.4 ML SYRINGE SUB-Q (08:29)
[2021-07-11] MEDS: PANTOPRAZOLE 40 MG TABLET PO (08:30)
[2021-07-11] MEDS: SPIRONOLACTONE 50 MG TABLET PO (08:30)
[2021-07-11] MEDS: METOPROLOL TARTRATE 12.5 MG TABLET PO (08:30)
[2021-07-11] MEDS: FUROSEMIDE INJ 40 MG/4 ML VIAL IV PUSH (08:30)
[2021-07-11] MEDS: ALBUTEROL SULFATE NEB 2.5 MG/0.5 ML INH INHALATION (09:13)
--- NOTE | 2021-07-11 12:21 | PM.PNCARD ---
Progress Note: A&P Assessment and Plan (1) Acute exacerbation of CHF (congestive heart failure): Qualifiers: Heart failure type: unspecified Qualified Code(s): I50.9 - Heart failure, unspecified Code(s): I50.9 - Heart failure, unspecified Status: Acute Assessment and Plan: Secondary to outpatient reduction in diuretic therapy, heart failure with mild LV systolic dysfunction preoperatively by JULIET exacerbated by tachyarrhythmia atrial flutter with RVR as well as SVT despite oral amiodarone. Continue IV Lasix 40 mg q.12 hours for now. Accurate input and output, daily weight, less than 2 g daily sodium intake. Anticipate change to oral diuretic regimen Lasix 60 mg p.o. b.i.d. with continuation of spironolactone in the next 24 hours. Add low-dose metoprolol 12.5 mg b.i.d. as tolerated. Advised patient ambulated prior to consideration for discharge. Patient ambulated the halls as I witnessed and did very well and states she feels fantastic. Patient is very comfortable going home today and would prefer to do so. She denies dizziness, shortness of breath, lightheadedness, cough. Edema is minimal and continues to improve. She is tolerating medical therapy Patient is clinically fairly euvolemic and asymptomatic at this time. She hemodynamically stable without any subsequent tachy or bradyarrhythmia on telemetry for the past 24 hours. She is tolerating metoprolol added to her amiodarone. Recommend discharge on aspirin 325 mg daily, amiodarone 200 mg daily, atorvastatin 80 mg at bedtime, spironolactone 50 mg daily, metoprolol tartrate 12.5 mg twice daily. (2) Elevated troponin: Code(s): R77.8 - Other specified abnormalities of plasma proteins Status: Acute Assessment and Plan: Status post 2 vessel CABG May 24, 2021. Type 2 infarct secondary to demand ischemia with rapid SVT, acute on chronic decompensated heart failure not secondary to acute coronary syndrome and/or plaque rupture. No clinical indication patient presents with pulmonary embolism. Currently stable on room air. Continue aspirin and statin. (3) Atrial flutter with rapid ventricular response: Code(s): I48.92 - Unspecified atrial flutter Status: Acute Assessment and Plan: Paroxysmal on amiodarone 200 mg daily. Currently sinus rhythm with LBBB. Caution with AV clover blocking agents but suspect her SVT and a flutter with RVR and history of paroxysmal atrial fibrillation contribute to exacerbation of CHF. Lower embolic stroke risk due to ligation of left atrial appendage. Continue amiodarone 200 mg daily for now. Tolerating metoprolol 12.5 mg twice daily. Caution given underlying conduction system disease with LBBB QRS 178 millisecond. Discussed uptitration of Amiodarone for several days although heart rate 60s to 70s in general with intermittent hypotension last night. Continue current medical therapy. (4) SVT (supraventricular tachycardia): Code(s): I47.1 - Supraventricular tachycardia Status: Acute Assessment and Plan: As above. Recommend further outpatient evaluation and or referral to electrophysiology as warranted. Follow-up in the office within [address] Gupta Very rapid SVT up to 190 beats per minute. Cannot entirely exclude atrial flutter with one-to-one AV block although probable SVT/AVNRT very difficult to determine given underlying LBBB. (5) Contraindication to anticoagulation therapy: Code(s): Z53.09 - Procedure and treatment not carried out because of other contraindication Status: Acute Assessment and Plan: History recurrent melanotic stools not a candidate previously noted. (6) History of mitral valve replacement with bioprosthetic valve: Code(s): Z95.3 - Presence of xenogenic heart valve Status: Acute Assessment and Plan: 31 mm Gilbert valve prosthetic mitral valve replacement. Prophylactic antibiotics. (7) H/O tricuspid
--- NOTE | 2021-07-11 14:03 | PM.DS ---
DS: Admitting Diagnosis Discharge Date 07/11/2021 Admitting Diagnosis Shortness of breath AFib with RVR DS: Discharge Diagnosis Discharge Diagnosis (1) CHF (congestive heart failure): Qualifiers: Heart failure chronicity: unspecified Heart failure type: unspecified Qualified Code(s): I50.9 - Heart failure, unspecified Code(s): I50.9 - Heart failure, unspecified Status: Acute Assessment and Plan: - JULIET from 04/19/21 significant for EF of 40%-45%, Left ventricular enlargement. -started on IVP Lasix of 40 mg BID and also continue Spironolactone 50 mg po daily. -cardiology consulted he suggested continued IV diuresis - Continue Telemetry. - Daily Weights - Accurate I&O. Lasix switched to 60 mg p.o. b.i.d. at the time of discharge she was recently dropped down on her dose Lasix from her previous dosing which caused her exacerbation (2) Elevated troponin: Code(s): R77.8 - Other specified abnormalities of plasma proteins Status: Acute Assessment and Plan: - Remains elevated w/ 2nd slightly more increased. Continue to trend. - Monitor Telemetry - Monitor patient for any Chest Pain. - It is suspected that in the absence of acute ACS, the rise in Troponin is caused by the patient's current CHF Exacerbation and her current FRANK. (3) FRANK (acute kidney injury): Code(s): N17.9 - Acute kidney failure, unspecified Status: Acute Assessment and Plan: - Creatinine and BUN unchanged today and measures .01/17 - Monitor serum creatinine and BUN. (4) Atrial fibrillation with rapid ventricular response: Code(s): I48.91 - Unspecified atrial fibrillation Status: Resolved Assessment and Plan: On admission with rate as as high as 190 beats per minute. History of proximal atrial fibrillation post surgery. For embolic risk due to ligation of the left atrial appendage. And to continue aspirin 325 mg daily due to history of melanotic stool and anemia and due to anticoagulation in the past. She spontaneously converted to normal sinus rhythm and remained in normal sinus rhythm for at least 24 hour prior to the discharge Amiodarone continued at 200 mg daily but was recently lower dose from 400 mg. To prevent paroxysmal atrial fibrillation again addition of beta-jason was made by the firearms expert which he tolerated well. She will be on metoprolol 12.5 mg twice daily (5) CAD (coronary artery disease): Qualifiers: Coronary Disease-Associated Artery/Lesion type: [place] artery [place] vs. transplanted heart: [place] heart Associated angina: without angina Qualified Code(s): I25.10 - Atherosclerotic heart disease of [place] coronary artery without angina pectoris Code(s): I25.10 - Atherosclerotic heart disease of [place] coronary artery without angina pectoris Status: Chronic Assessment and Plan: - Recent CABG in April of this year. (6) COPD (chronic obstructive pulmonary disease): Qualifiers: COPD type: unspecified COPD Qualified Code(s): J44.9 - Chronic obstructive pulmonary disease, unspecified Code(s): J44.9 - Chronic obstructive pulmonary disease, unspecified Status: Acute Assessment and Plan: - Discontinue hand held inhalers. - Duoneb Q6 hrs - Albuterol nebs Q4 hrs prn wheezing/dyspnea. (7) Hypertension: Qualifiers: Hypertension type: unspecified Qualified Code(s): I10 - Essential (primary) hypertension Code(s): I10 - Essential (primary) hypertension Status: Chronic Assessment and Plan: - Continue current mediacations of Lasix 40 mg po BID and Spironolactone 50 mg po daily. (8) Hypothyroidism: Code(s): E03.9 - Hypothyroidism, unspecified Status: Suspected Assessment and Plan: - Suspected to be chronic, but newly diagnosed. - Pt. is symptomatic. - TSH is 16.7, but T4 is normal. - Pt. is currently symptomatic. -started on Synthroid 12.5 mg
--- NOTE | 2021-08-24 16:07 | PM.IMHP ---
H&P: HPI History of Present Illness Date/Time: 08/24/21 16:07 This is a 71 year old patient of Dr. Gupta'shawna who was directly admitted to the hospital today from our office for acute on chronic diastolic heart failure and a new diagnosis of systolic dysfunction. Ms. Rangel has a history significant for atrial fibrillation, CAD (s/p 2 vessel bypass grafting with left internal mammary artery to the left anterior descending artery, reverse saphenous vein graft to the ramus intermedius artery in April of this year), mitral valve replacement with a bioprosthetic valve, tricuspid valve repair, and left atrial appendage ligation on May 24 of this year. She also has a history of COPD and hypothyroidism, and she is a current smoker. During her admission for her bypass grafting and valve surgeries she also underwent DC cardioversion and has been maintaining sinus rhythm since that time. She did not have any major complications following her surgery and was recovering well. She was admitted to the hospital about 1 month ago for CHF exacerbation at which time she was diuresed with IV Lasix. During this hospitalization was recommended that an echocardiogram be done as an outpatient. This was performed in our office today and revealed a severely reduced ejection fraction of about 10-15%. In the office today, she was noted to have signs and symptoms of CHF exacerbation on exam despite taking 80 mg of Lasix b.i.d. for this reason she was admitted for aggressive diuresis and further management of her cardiomyopathy. She tells me that she noticed over the past couple weeks that she has been becoming more swollen in her lower extremities. She also endorses some increasing shortness of breath and orthopnea. She denies any chest pain, palpitations. Chief Complaint: Lower extremity edema Review of Systems Review of Systems: All systems reviewed & are unremarkable except as noted in HPI and below Constitutional: Constitutional: Denies fatigue, Denies lethargy and Denies weakness Eyes: Eyes: Denies change in vision ENT: Reports Normal hearing present Cardiovascular: Cardiovascular: Denies chest pain, Reports pedal edema, Reports leg edema, Denies lightheadedness and Denies palpitations Respiratory: Respiratory: Reports dyspnea and Reports dyspnea on exertion Gastrointestinal: Gastrointestinal: Denies abdominal pain and Denies melena Genitourinary: Genitourinary: Denies hematuria Musculoskeletal: Musculoskeletal: Denies back pain, Denies myalgias and Denies neck pain Integumentary/Breasts: Skin/Breast: Denies pruritus and Denies rash Neurologic: Denies headache(s) Psychiatric: Psychiatric: Denies anxiety and Denies depression Endocrine: Endocrine: Denies cold intolerance and Denies heat intolerance Hematologic/Lymphatic: Hematologic/Lymphatic: Denies easy bleeding and Denies easy bruising Allergic/Immunologic: Allergic/Immunologic: Denies GI upset with certain foods PMFSH Past Medical History Medical History Acute exacerbation of CHF (congestive heart failure) Aortic stenosis Atrial fibrillation CAD (coronary artery disease) COPD (chronic obstructive pulmonary disease) Depression Heart attack History of GI bleed Shortly after her CABG Hyperlipidemia Hypertension Nephrolithiasis Surgical History Surgical History H/O tubal ligation H/O two vessel coronary artery bypass graft Heart valve replaced Patient stated that she had a 1 valve repair and 1 hard bowel replace with a PIg valve History of coronary artery stent placement S/P coronary artery stent placement Family History Family History Father Cancer Mother Acute myocardial infarction Congestive heart failure Son Diabetes mellitus Sibling Chronic obstructive pulmonary disease Social History Social History
== END 2021-07-11 15:02 | disposition home or self-care (01) | DRG 281 ==
LOC: ANHED 17:54 → ANHCPC 22:26
PROVIDERS: Emergency Medicine; Nurse Practitioner; Nurse Practitioner Adult Health; Admitting Provider Hospitalist; Emergency Provider Emergency Medicine; PCP Family Medicine Adolescent Medicine; Visit Provider Internal Medicine
DX: I11.0 Hypertensive heart disease with heart failure (principal); I21.A1 Myocardial infarction type 2; N17.9 Acute kidney failure, unspecified; I48.20 Chronic atrial fibrillation, unspecified; I48.92 Unspecified atrial flutter; I50.33 Acute on chronic diastolic (congestive) heart failure; I25.10 Atherosclerotic heart disease of native coronary artery without angina pectoris; J44.9 Chronic obstructive pulmonary disease, unspecified; E03.9 Hypothyroidism, unspecified; I44.7 Left bundle-branch block, unspecified; I35.0 Nonrheumatic aortic (valve) stenosis; E78.5 Hyperlipidemia, unspecified; F32.9 Major depressive disorder, single episode, unspecified; F17.210 Nicotine dependence, cigarettes, uncomplicated; Z95.1 Presence of aortocoronary bypass graft; Z95.2 Presence of prosthetic heart valve; I25.2 Old myocardial infarction; Z95.5 Presence of coronary angioplasty implant and graft
CPT/HCPCS: 36415; 71046; 80048; 80053; 83605; 83735; 83880; 84439; 84443; 84480; 84484; 85025; 85055; 85610; 85730; 93005; 93970; 94640; 99291; A9270; J1650; J1940

== ENCOUNTER 2021-08-24 17:04 | Inpatient (IN) | payer MEDICARE, SELFPAY ==
[2021-08-24] VITALS (7 sets, daily range): BP systolic 95–104; BP diastolic 63–75; PULSE 76–86; RESP 12–20; TEMP 35.6–36.3; O2SAT 93–99; BMI 32.8
--- NOTE | ~2021-08-24 | XR_ITS ---
EXAMINATION: XR chest 1V portable EXAM DATE: 08/29/2021 10:14 INDICATION: Assess CHF exacerbation, follow-up. TECHNIQUE: Portable AP frontal chest x-ray was obtained. Comparison is made to prior examination from 08/24/2021. FINDINGS: There is moderate left pleural effusion, adjacent compressive atelectasis. Sternotomy wires are present without findings to suggest sternal dehiscence. Cardiac valve replacement. Cardiomegaly is unchanged. No pneumothorax. There is aortic arteriosclerosis. There are bony degenerative changes. IMPRESSION: No significant change in moderate left pleural effusion, adjacent atelectasis and congest hung changes. Reviewed, dictated and finalized at location A. IMPRESSION: No significant change in moderate left pleural effusion, adjacent a telectasis and congestive changes.
--- NOTE | ~2021-08-24 | XR_ITS ---
Corrected Report Moved to correct v# 08/25/2021 [facility] XR chest 1V portable 08/24/2021 17:09 Indication: CHF Procedure: AP portable chest Comparison: Comparison to multiple prior studies sequentially, with oldest reviewed study dated 09/07/2020. Findings: Status post median sternotomy for CABG. Cardiomegaly with mild interstitial edema. Small left pleural effusion. No pneumothorax. Impression: 1: Cardiomegaly with mild interstitial edema. Reviewed, dictated and finalized at location A. MTDD
--- NOTE | 2021-08-24 15:48 | ADMGEN ---
This patient, Monica Rangel, was admitted to IMU Room 203-01. Patient/family oriented to hospital policies and general routines including ID bracelet, bed and alarms, visiting hours, pain management, procedures, bathroom and other care routines, personal items, smoking policy, room service/diet, and visiting hours. Information on how to activate the Rapid Response Team has been discussed. Patient/Family are encouraged to report perceived risks to care and to ask questions if they do not understand what they are told or what they should do.
--- NOTE | 2021-08-24 16:11 | HP_ITS ---
This report was moved to the correct visit, [id number], on 08/27/2021. Original report was signed by Camille Montana APN 08/24/2021 at [address] Nikolay Pablo on 08/24/21 at 1654. H&P: HPI History of Present Illness Date/Time: 08/24/21 16:07 This is a 71 [address] old patient of Dr. Gupta's who was directly admitted to the hospital today from our office for acute on chronic diastolic heart failure and a new diagnosis of systolic dysfunction. Ms. Rangel has a history significant for atrial fibrillation, CAD (s/p 2 vessel bypass grafting with left internal mammary artery to the left anterior descending artery, reverse saphenous vein graft to the ramus intermedius artery in April of this year), mitral valve replacement with a bioprosthetic valve, tricuspid valve repair, and left atrial appendage ligation on May 24 of this year. She also has a history of COPD and hypothyroidism, and she is a current smoker. During her admission for her bypass grafting and valve surgeries she also underwent DC cardioversion and has been maintaining sinus rhythm since that time. She did not have any major complications following her surgery and was recovering well. She was admitted to the hospital about 1 month ago for CHF exacerbation at which time she was diuresed with IV Lasix. During this hospitalization was recommended that an echocardiogram be done as an outpatient. This was performed in our office today and revealed a severely reduced ejection fraction of about 10-15%. In the office today, she was noted to have signs and symptoms of CHF exacerbation on exam despite taking 80 mg of Lasix b.i.d. for this reason she was admitted for aggressive diuresis and further management of her cardiomyopathy. She tells me that she noticed over the past couple weeks that she has been becoming more swollen in her lower extremities. She also endorses some increasing shortness of breath and orthopnea. She denies any chest pain, palpitations. Chief Complaint: Lower extremity edema Review of Systems Review of Systems: All systems reviewed & are unremarkable except as noted in HPI and below Constitutional: Constitutional: Denies fatigue, Denies lethargy and Denies weakness Eyes: Eyes: Denies change in vision ENT: Reports Normal hearing present Cardiovascular: Cardiovascular: Denies chest pain, Reports pedal edema, Reports leg edema, Denies lightheadedness and Denies palpitations Respiratory: Respiratory: Reports dyspnea and Reports dyspnea on exertion Gastrointestinal: Gastrointestinal: Denies abdominal pain and Denies melena Genitourinary: Genitourinary: Denies hematuria Musculoskeletal: Musculoskeletal: Denies back pain, Denies myalgias and Denies neck pain Integumentary/Breasts: Skin/Breast: Denies pruritus and Denies rash Neurologic: Denies headache(s) Psychiatric: Psychiatric: Denies anxiety and Denies depression Endocrine: Endocrine: Denies cold intolerance and Denies heat intolerance Hematologic/Lymphatic: Hematologic/Lymphatic: Denies easy bleeding and Denies easy bruising Allergic/Immunologic: Allergic/Immunologic: Denies GI upset with certain foods PMFSH Past Medical History Medical History Acute exacerbation of CHF (congestive heart failure) Aortic stenosis Atrial fibrillation CAD (coronary artery disease) COPD (chronic obstructive pulmonary disease) Depression Heart attack History of GI bleed Shortly after her CABG Hyperlipidemia Hypertension Nephrolithiasis Surgical History Surgical History H/O tubal ligation H/O two vessel coronary artery bypass graft Heart valve replaced Patient stated that she
[2021-08-24 17:13] LABS: Hemoglobin 16.3 g/dL (12.0-15.0); Mean Corpuscular Hemoglobin 27.9 pg (26-34); Mean Corpuscular Volume 87.2 fl (80-100); Mean Platelet Volume 10.4 fl (7.4-10.4); Platelet Count Result 227 k/mm3 (150-375); Red Blood Count 5.85 M/mm3 (4.2-5.4); Red Cell Distribution Width 18.1 % (11.5-14.5); White Blood Count 5.7 K/mm3 (4.5-10.0)
[2021-08-24 17:23] LABS: Anion Gap 8 mmol/L (8-16); Blood Urea Nitrogen 23 mg/dL (7-17); Calcium 9.7 mg/dL (8.4-10.2); Carbon Dioxide 32 mmol/L (22-30); Chloride 94 mmol/L (98-107); Estimated CRCL calculation 35 ml/min; Estimated Glomerular Filt Rate 40; Glucose 107 mg/dL (65-110); Potassium 3.9 mmol/L (3.4-5.0); Sodium 134 mmol/L (137-145)
[2021-08-24 17:32] LABS: NT Pro B Type Natriuretic Pept > 35000 pg/mL (5-100)
[2021-08-24] MEDS: FUROSEMIDE INJ 40 MG/4 ML VIAL IV PUSH (17:58)
--- NOTE | 2021-08-24 18:09 | PHAR ---
The patient's home meds of Asmanex 200mg and Stiolto Respimat have been verified.
[2021-08-24] MEDS: METOPROLOL TARTRATE 12.5 MG TABLET PO (20:31)
[2021-08-25] VITALS (14 sets, daily range): BP systolic 91–135; BP diastolic 47–88; PULSE 70–85; RESP 16–20; TEMP 36.1–36.7; O2SAT 96–98
[2021-08-25 05:39] LABS: Anion Gap 7 mmol/L (8-16); Blood Urea Nitrogen 23 mg/dL (7-17); Calcium 9.4 mg/dL (8.4-10.2); Carbon Dioxide 32 mmol/L (22-30); Chloride 94 mmol/L (98-107); Estimated CRCL calculation 35 ml/min; Estimated Glomerular Filt Rate 40; Glucose 99 mg/dL (65-110); Potassium 4.5 mmol/L (3.4-5.0); Sodium 133 mmol/L (137-145)
[2021-08-25] MEDS: LEVOTHYROXINE SODIUM 25 MCG TABLET PO (06:00)
[2021-08-25] MEDS: SPIRONOLACTONE 50 MG TABLET PO (09:01)
[2021-08-25] MEDS: ATORVASTATIN 40 MG TABLET 80 MG PO (09:01)
[2021-08-25] MEDS: POTASSIUM CHLORIDE 20 MEQ TABLET.ER 40 MEQ PO (09:02)
[2021-08-25] MEDS: FERROUS SULFATE 324 MG TABLET 648 MG PO (09:02)
[2021-08-25] MEDS: ASPIRIN 325 MG TABLET PO (09:02)
[2021-08-25] MEDS: FUROSEMIDE INJ 40 MG/4 ML VIAL IV PUSH ×2 (09:02→16:53)
[2021-08-25] MEDS: AMIODARONE HCL 200 MG TABLET PO (09:02)
[2021-08-25] MEDS: lisinopriL 5 MG TABLET PO (09:02)
[2021-08-25] MEDS: PANTOPRAZOLE 40 MG TABLET PO (09:02)
[2021-08-25] MEDS: METOPROLOL TARTRATE 12.5 MG TABLET PO (09:02)
--- NOTE | 2021-08-25 10:24 | PM.PNCARD ---
Progress Note: A&P Additional Plan 71-year-old lady with: Decompensated systolic heart failure very surprising finding following what was felt to be successful CABG and valve repair surgery recently at [facility]. I will transition her beta-jason to carvedilol, stop lisinopril today with the anticipation of transitioning her to Entresto. I am also going to start a low-dose of IV dobutamine to try to stimulate a diuresis. Will have to watch her telemetry carefully so as hopefully not to stimulate significant arrhythmias. We will contact her machine stripper at [facility] who has an appointment to see her next week about her atrial arrhythmias. The new diagnosis of severe heart failure is significant change in her condition and they need to be aware of this. Also spoke to the patient about asking for a Life Vest device when she is discharged from Luis Gupta MD [facility] Subjective Date/time seen: Date of service: 08/25/21 10:24 Interval history: Follow-up visit in this 71-year-old lady with: History of coronary disease and valvular heart disease admitted to the hospital yesterday from the office because of CHF decompensation. Patient very surprisingly found to have a very low ejection fraction which was new information after coronary bypass, mitral valve replacement and tricuspid valve repair several months ago. She also has a history of persistent AFib/flutter being treated with amiodarone and now in sinus rhythm. Also has new left bundle branch block. Ejection fraction which was normal previously is now 10-15%. Long discussion with the patient about the implications of this the need to treat her for systolic rather than diastolic heart failure. Exam Const: General: comfortable and no acute distress HENMT: Mouth: Yes moist mucous membranes Eyes: Sclera: sclerae normal Pupils: Equal, round and reactive pupils present Neck: Neck: supple Other: No carotid bruit, difficult to assess JVD Resp: Effort & Inspection: normal respiratory effort Other: Dullness at the bases Cardio: Rate: regular rate Rhythm: regular rhythm Other: PMI difficult to palpate, no murmur S3 is audible GI: GI Palp: Yes Soft to palpation Auscultation: normal bowel sounds Skin: General skin exam: normal color Neuro: Cognition (Neuro): normal cognition Extrem: Other: Diffuse moderate lower extremity edema Objective Data Vital Signs Vital Signs: Vital Signs - 24 hr 08/24/21 15:40 08/24/21 16:00 08/24/21 18:00 Temperature 35.6 C L Pulse Rate 82 81 86 Respiratory Rate 12 Blood Pressure 104/75 Pulse Oximetry 99 08/24/21 20:00 08/24/21 20:31 08/24/21 22:00 Temperature 36.3 C L Pulse Rate 81 82 82 Respiratory Rate 20 Blood Pressure 95/63 L Pulse Oximetry 97 08/24/21 23:22 08/25/21 00:00 08/25/21 02:00 Temperature 36.3 C L Pulse Rate 76 77 74 Respiratory Rate 20 Blood Pressure 102/67 Pulse Oximetry 93 08/25/21 04:00 08/25/21 06:00 08/25/21 08:00 Temperature 36.1 C L 36.1 C L Pulse Rate 73 81 76 Respiratory Rate 20 16 Blood Pressure 109/70 104/62 Pulse Oximetry 97 98 08/25/21 10:00 Temperature Pulse Rate 85 Respiratory Rate Blood Pressure Pulse Oximetry Intake/Output Intake/Output: Intake & Output 08/22/21 08/23/21 08/24/21 08/25/21 23:59 23:59 23:59 23:59 Intake Total 440 Output Total 1300 750 Balance -860 -750 Meds/Results Medications: Active Medications Generic Name Dose Route Start Last Admin Trade Name Freq PRN Reason Stop Dose Admin Albuterol 1 puff 08/24/21 17:00 Albuterol Sulfate (*Sp) Aerosol 1 Puff INHALATION Q4H PRN Shortness Of Breath Amiodarone HCl 200 mg 08/25/21 09:00 08/25/21 09:02 Amiodarone Hcl 200 Mg Tablet PO 200 mg DAILY MADELINE Administration Aspirin 325 mg 08/25/21 09:00 08/25/21 09:02 Aspirin 325 Mg Tablet PO 325 mg DAILY MADELINE Administration Atorvastatin Calcium 80 mg 08/25/21 09:
[2021-08-25] MEDS: DOBUTamine 250 MG/D5W 250 ML 250 MG/250 ML BAG 12.32 MG IV CONT (12:33)
[2021-08-26] VITALS (18 sets, daily range): BP systolic 86–97; BP diastolic 55–67; PULSE 69–82; RESP 18–20; TEMP 36–36.6; O2SAT 96–99
[2021-08-26 05:43] LABS: Anion Gap 8 mmol/L (8-16); Blood Urea Nitrogen 21 mg/dL (7-17); Calcium 8.8 mg/dL (8.4-10.2); Carbon Dioxide 26 mmol/L (22-30); Chloride 96 mmol/L (98-107); Estimated CRCL calculation 39 ml/min; Estimated Glomerular Filt Rate 44; Glucose 92 mg/dL (65-110); Potassium 4.2 mmol/L (3.4-5.0); Sodium 130 mmol/L (137-145)
[2021-08-26] MEDS: LEVOTHYROXINE SODIUM 25 MCG TABLET PO (06:27)
[2021-08-26] MEDS: DOBUTamine 250 MG/D5W 250 ML 250 MG/250 ML BAG 12.32 MG IV CONT (08:23)
[2021-08-26] MEDS: FERROUS SULFATE 324 MG TABLET 648 MG PO (08:40)
[2021-08-26] MEDS: POTASSIUM CHLORIDE 20 MEQ TABLET.ER 40 MEQ PO (08:40)
[2021-08-26] MEDS: PANTOPRAZOLE 40 MG TABLET PO (08:41)
[2021-08-26] MEDS: ASPIRIN 325 MG TABLET PO (08:41)
[2021-08-26] MEDS: AMIODARONE HCL 200 MG TABLET PO (10:31)
[2021-08-26] MEDS: SPIRONOLACTONE 50 MG TABLET PO (10:31)
[2021-08-26] MEDS: FUROSEMIDE INJ 40 MG/4 ML VIAL IV PUSH ×2 (10:32→17:03)
[2021-08-26] MEDS: carvediloL 3.125 MG TABLET PO ×2 (11:24→20:04)
--- NOTE | 2021-08-26 13:47 | PC.NURSE ---
On 08/26/21, the student, [Conor Roque ], provided care and completed [employer] documentation on this patient. I have reviewed the student's documentation and agree with the findings.
--- NOTE | 2021-08-26 14:18 | PM.PNCARD ---
Progress Note: A&P Assessment and Plan (1) LBBB (left bundle branch block): Code(s): I44.7 - Left bundle-branch block, unspecified Status: Acute Assessment and Plan: New since surgery (2) History of mitral valve replacement with bioprosthetic valve: Code(s): Z95.3 - Presence of xenogenic heart valve Status: Acute (3) H/O tricuspid valve annuloplasty: Code(s): Z98.890 - Other specified postprocedural states Status: Acute (4) H/O two vessel coronary artery bypass graft: Code(s): Z95.1 - Presence of aortocoronary bypass graft Status: Acute (5) Atrial flutter with rapid ventricular response: Code(s): I48.92 - Unspecified atrial flutter Status: Acute Assessment and Plan: Remains in sinus rhythm. Continue amiodarone (6) Acute exacerbation of CHF (congestive heart failure): Qualifiers: Heart failure type: unspecified Qualified Code(s): I50.9 - Heart failure, unspecified Code(s): I50.9 - Heart failure, unspecified Status: Acute Assessment and Plan: Systolic in etiology. Continue dobutamine. Continue low-dose carvedilol, IV diuretics. Will reduce her spironolactone down to 25 mg daily due to hypotension. She is diuresing slowly. Eventually needs to have Bi V device. Possibly transfer as an inpatient Subjective Date/time seen: 08/26/21 14:18 Interval history: Follow-up visit in this 71-year-old lady with: History of coronary disease and valvular heart disease admitted to the hospital yesterday from the office because of CHF decompensation. Patient very surprisingly found to have a very low ejection fraction which was new information after coronary bypass, mitral valve replacement and tricuspid valve repair several months ago. She also has a history of persistent AFib/flutter being treated with amiodarone and now in sinus rhythm. Also has new left bundle branch block. Ejection fraction which was normal previously is now 10-15%. Long discussion with the patient about the implications of this the need to treat her for systolic rather than diastolic heart failure. Follow-up note 08/26/2021: She feels no shortness of breath at rest. Her swelling feels slightly better and her legs are slightly less taut. No chest pain Review of Systems Review of Systems: All systems reviewed & are unremarkable except as noted in HPI and below Constitutional: Constitutional: Reports weakness Eyes: Eyes: Denies blurry vision ENT: Reports Normal hearing present Cardiovascular: Cardiovascular: Denies chest pain, Reports pedal edema and Reports leg edema Respiratory: Respiratory: Reports dyspnea Gastrointestinal: Gastrointestinal: Denies abdominal pain Genitourinary: Genitourinary: Denies flank pain Musculoskeletal: Musculoskeletal: Denies neck pain Integumentary/Breasts: Skin/Breast: Denies dry skin Neurologic: Denies headache(s) Psychiatric: Psychiatric: Denies anxiety Endocrine: Endocrine: Denies excessive sweating Hematologic/Lymphatic: Hematologic/Lymphatic: Denies easy bruising Allergic/Immunologic: Allergic/Immunologic: Denies GI upset with certain foods Exam Const: General: comfortable and no acute distress HENMT: Mouth: Yes moist mucous membranes Eyes: Sclera: sclerae normal Pupils: Equal, round and reactive pupils present Neck: Neck: supple Other: No carotid bruit, difficult to assess JVD Resp: Effort & Inspection: normal respiratory effort Other: Dullness at the bases Cardio: Rate: regular rate Rhythm: regular rhythm Other: PMI difficult to palpate, no murmur S3 is audible GI: Auscultation: normal bowel sounds Skin: General skin exam: normal color Neuro: Cranial nerves: Yes Equal, round and reactive pupils present Cognition (Neuro): normal cognition Extrem: Other: Diffuse moderate lower extremity edema Psych: Appearance: grossly normal Objective Data Vital Signs Vital Signs: Vi
[2021-08-27] VITALS (22 sets, daily range): BP systolic 82–120; BP diastolic 50–86; PULSE 66–101; RESP 18–24; TEMP 36.2–36.6; O2SAT 93–97
[2021-08-27] MEDS: DOBUTamine 250 MG/D5W 250 ML 250 MG/250 ML BAG 12.32 MG IV CONT (04:46)
[2021-08-27 05:49] LABS: Anion Gap 5 mmol/L (8-16); Blood Urea Nitrogen 21 mg/dL (7-17); Calcium 9.2 mg/dL (8.4-10.2); Carbon Dioxide 29 mmol/L (22-30); Chloride 95 mmol/L (98-107); Estimated CRCL calculation 42 ml/min; Estimated Glomerular Filt Rate 49; Glucose 88 mg/dL (65-110); Potassium 4.7 mmol/L (3.4-5.0); Sodium 129 mmol/L (137-145)
[2021-08-27] MEDS: LEVOTHYROXINE SODIUM 25 MCG TABLET PO (06:27)
[2021-08-27] MEDS: FERROUS SULFATE 324 MG TABLET 648 MG PO (09:52)
[2021-08-27] MEDS: PANTOPRAZOLE 40 MG TABLET PO (09:53)
[2021-08-27] MEDS: carvediloL 3.125 MG TABLET PO ×2 (09:54→20:22)
[2021-08-27] MEDS: AMIODARONE HCL 200 MG TABLET PO (09:54)
[2021-08-27] MEDS: SPIRONOLACTONE 25 MG TABLET PO (09:54)
[2021-08-27] MEDS: POTASSIUM CHLORIDE 20 MEQ TABLET.ER 40 MEQ PO (09:54)
[2021-08-27] MEDS: ASPIRIN 325 MG TABLET PO (09:54)
--- NOTE | 2021-08-27 09:54 | PM.PNCARD ---
Progress Note: A&P Additional Plan 71-year-old female with: Severe left ventricular systolic dysfunction CHF/volume overload. Patient is diuresing effectively with current regimen of IV dobutamine and IV furosemide. Because of the very low ejection fraction but challenging low blood pressure I am going to try a very modest dose of Entresto today. Caution the patient and the nursing staff to keep her in bed after receiving the medication watch her blood pressure carefully. As she is diuresing effectively I will continue the IV dobutamine at this time. Labs today suggest that renal function has actually improved as expected with better cardiac output. Harish Gupta MD [facility] Subjective Date/time seen: Date of service: 08/27/21 09:54 Interval history: Follow-up visit in this 71-year-old lady with: History of coronary disease and valvular heart disease admitted to the hospital yesterday from the office because of CHF decompensation. Patient very surprisingly found to have a very low ejection fraction which was new information after coronary bypass, mitral valve replacement and tricuspid valve repair several months ago. She also has a history of persistent AFib/flutter being treated with amiodarone and now in sinus rhythm. Also has new left bundle branch block. Ejection fraction which was normal previously is now 10-15%. Long discussion with the patient about the implications of this the need to treat her for systolic rather than diastolic heart failure. Follow-up note 08/26/2021: She feels no shortness of breath at rest. Her swelling feels slightly better and her legs are slightly less taut. No chest pain Date of service 08/27/2021: Patient is feeling better day by day as she diuresis. Her lower extremity edema is clearly improving. She has been off of lisinopril for several days at this time. Discussed starting very low-dose of Entresto today. Exam Const: General: comfortable and no acute distress HENMT: Mouth: Yes moist mucous membranes Eyes: Sclera: sclerae normal Pupils: Equal, round and reactive pupils present Neck: Neck: supple Other: No carotid bruit, difficult to assess JVD Resp: Effort & Inspection: normal respiratory effort Other: Dullness at the bases Cardio: Rate: regular rate Rhythm: regular rhythm Other: PMI difficult to palpate, no murmur S3 is audible GI: Auscultation: normal bowel sounds Skin: General skin exam: normal color Neuro: Cranial nerves: Yes Equal, round and reactive pupils present and Yes Normal hearing present Cognition (Neuro): normal cognition Extrem: Other: Still moderate bipedal edema but notably improved compared with admission. Psych: Appearance: grossly normal Objective Data Vital Signs Vital Signs: Vital Signs - 24 hr 08/26/21 10:00 08/26/21 10:31 08/26/21 11:24 Temperature Pulse Rate 82 81 81 Respiratory Rate Blood Pressure Pulse Oximetry 08/26/21 11:30 08/26/21 12:00 08/26/21 14:00 Temperature 36.5 C Pulse Rate 79 82 76 Respiratory Rate 20 Blood Pressure 89/55 L Pulse Oximetry 96 08/26/21 16:00 08/26/21 18:00 08/26/21 19:59 Temperature 36.6 C 36.6 C Pulse Rate 73 76 70 Respiratory Rate 20 18 Blood Pressure 93/58 L 92/67 L Pulse Oximetry 97 99 08/26/21 20:00 08/26/21 20:04 08/26/21 22:00 Temperature Pulse Rate 69 69 72 Respiratory Rate Blood Pressure Pulse Oximetry 08/27/21 00:00 08/27/21 02:00 08/27/21 04:00 Temperature 36.4 C 36.4 C Pulse Rate 71 71 71 Respiratory Rate 18 18 Blood Pressure 101/61 91/55 L Pulse Oximetry 96 96 08/27/21 06:00 08/27/21 08:00 Temperature 36.5 C Pulse Rate 66 71 Respiratory Rate 20 Blood Pressure 95/56 L Pulse Oximetry 96 Intake/Output Intake/Output: Intake & Output 08/24/21 08/25/21 08/26/21 08/27/21 23:59 23:59 23:59 23:59 Intake Total 440 1320 600 450 Output Total 1300 2750 1250 1050 Balance -860 -1430 -650 -600 Meds/Resu
[2021-08-27] MEDS: FUROSEMIDE INJ 40 MG/4 ML VIAL IV PUSH ×2 (09:55→17:21)
[2021-08-27] MEDS: SACUBITRIL/VALSARTAN 12-13 MG TABLET 1 TAB PO ×2 (10:23→21:28)
--- NOTE | 2021-08-27 18:11 | ECG_ITS ---
Measurements Intervals [place] Rate: 98 P: [place]: 0 QRS: -19 QRSD: 189 T: 151 QT: 444 QTc: 568 Interpretive Statements ATRIAL FIBRILLATION VENTRICULAR PREMATURE COMPLEXES LEFT BUNDLE BRANCH BLOCK ABNORMAL ECG Electronically Signed On 08-28-2021 15:45:14 CDT by Isac Dey D.O.
[2021-08-28] VITALS (18 sets, daily range): BP systolic 89–104; BP diastolic 49–76; PULSE 63–94; RESP 16–18; TEMP 36.1–36.6; O2SAT 94–97
[2021-08-28] MEDS: DOBUTamine 250 MG/D5W 250 ML 250 MG/250 ML BAG 12.32 MG IV CONT ×2 (01:09→22:18)
[2021-08-28 04:53] LABS: Anion Gap 6 mmol/L (8-16); Blood Urea Nitrogen 23 mg/dL (7-17); Calcium 8.8 mg/dL (8.4-10.2); Carbon Dioxide 31 mmol/L (22-30); Chloride 91 mmol/L (98-107); Estimated CRCL calculation 36 ml/min; Estimated Glomerular Filt Rate 40; Glucose 95 mg/dL (65-110); Potassium 4.7 mmol/L (3.4-5.0); Sodium 128 mmol/L (137-145)
[2021-08-28] MEDS: LEVOTHYROXINE SODIUM 25 MCG TABLET PO (06:24)
[2021-08-28] MEDS: ASPIRIN 325 MG TABLET PO (08:39)
[2021-08-28] MEDS: carvediloL 3.125 MG TABLET PO ×2 (08:40→20:14)
[2021-08-28] MEDS: FERROUS SULFATE 324 MG TABLET 648 MG PO (08:40)
[2021-08-28] MEDS: PANTOPRAZOLE 40 MG TABLET PO (08:41)
[2021-08-28] MEDS: FUROSEMIDE INJ 40 MG/4 ML VIAL IV PUSH ×2 (08:41→17:29)
[2021-08-28] MEDS: POTASSIUM CHLORIDE 20 MEQ TABLET.ER 40 MEQ PO (08:41)
[2021-08-28] MEDS: AMIODARONE HCL 200 MG TABLET PO (08:42)
[2021-08-28] MEDS: SACUBITRIL/VALSARTAN 12-13 MG TABLET 1 TAB PO ×2 (08:42→22:14)
[2021-08-28] MEDS: SPIRONOLACTONE 25 MG TABLET PO (08:42)
--- NOTE | 2021-08-28 10:05 | PM.PNCARD ---
Progress Note: A&P Assessment and Plan (1) Acute exacerbation of CHF (congestive heart failure): Qualifiers: Heart failure type: unspecified Qualified Code(s): I50.9 - Heart failure, unspecified Code(s): I50.9 - Heart failure, unspecified Status: Acute Assessment and Plan: Systolic in etiology. Slowly diuresing and slowly improving but having trouble with medications due to low blood pressure. Continue dobutamine. Continue low-dose carvedilol, IV diuretics. Spironolactone reduced to 25 mg daily due to hypotension. May need to discontinue Entresto blood pressure remains this low. Eventually needs to have Bi V device. Possibly transfer as an inpatie t (2) Cardiomyopathy: Code(s): I42.9 - Cardiomyopathy, unspecified Status: Acute Assessment and Plan: New cardiomyopathy, EF 15%. (3) Paroxysmal atrial fibrillation: Code(s): I48.0 - Paroxysmal atrial fibrillation Status: Acute Assessment and Plan: History of atrial flutter and paroxysmal AFib. Went back in atrial fibrillation on 08/27/2021, rate fairly well controlled. Will increase amiodarone to 400 mg b.i.d.. Had a GI bleed after her CABG and has not been anticoagulated because of this. (4) LBBB (left bundle branch block): Code(s): I44.7 - Left bundle-branch block, unspecified Status: Acute Assessment and Plan: New since surgery (5) History of mitral valve replacement with bioprosthetic valve: Code(s): Z95.3 - Presence of xenogenic heart valve Status: Acute (6) H/O tricuspid valve annuloplasty: Code(s): Z98.890 - Other specified postprocedural states Status: Acute (7) CAD (coronary artery disease): Qualifiers: Coronary Disease-Associated Artery/Lesion type: [place] artery [place] vs. transplanted heart: hopi heart Associated angina: without angina Qualified Code(s): I25.10 - Atherosclerotic heart disease of hopi coronary artery without angina pectoris Code(s): I25.10 - Atherosclerotic heart disease of hopi coronary artery without angina pectoris Status: Chronic Assessment and Plan: Status post CABG x2 in April 2021 (8) Acute hyponatremia: Code(s): E87.1 - Hypo-osmolality and hyponatremia Status: Acute Assessment and Plan: Mild hyponatremia noted, will continue to follow. Additional Plan 71-year-old female with: Severe left ventricular systolic dysfunction CHF/volume overload. Patient is diuresing effectively with current regimen of IV dobutamine and IV furosemide. Because of the very low ejection fraction but challenging low blood pressure I am going to try a very modest dose of Entresto today. Caution the patient and the nursing staff to keep her in bed after receiving the medication watch her blood pressure carefully. As she is diuresing effectively I will continue the IV dobutamine at this time. Labs today suggest that renal function has actually improved as expected with better cardiac output. Harish Gupta MD [facility] Subjective Date/time seen: 08/28/21 10:05 Interval history: Follow-up visit in this 71-year-old lady with: History of coronary disease and valvular heart disease admitted to the hospital 08/24/2021 from the office because of CHF decompensation. Patient very surprisingly found to have a very low ejection fraction which was new information after coronary bypass, mitral valve replacement and tricuspid valve repair 05/24/2021. Ejection fraction which was normal previously is now 10-15%. She also has a history of persistent AFib/flutter being treated with amiodarone and now in sinus rhythm. Also has new left bundle branch block. Long discussion with the patient about the implications of this the need to treat her for systolic rather than diastolic heart failure. 08/26/2021: She feels no shortness of breath at rest. Her swelling feels slightly better and her
[2021-08-28] MEDS: ALBUTEROL SULFATE (*SP) AEROSOL 1 PUFF INHALATION (20:44)
[2021-08-29] VITALS (22 sets, daily range): BP systolic 84–103; BP diastolic 47–62; PULSE 63–97; RESP 16–20; TEMP 36.1–37; O2SAT 94–97
[2021-08-29 04:47] LABS: Potassium 4.7 mmol/L (3.4-5.0)
[2021-08-29] MEDS: LEVOTHYROXINE SODIUM 25 MCG TABLET PO (05:35)
--- NOTE | 2021-08-29 08:30 | PM.PNCARD ---
Progress Note: A&P Assessment and Plan (1) Acute exacerbation of CHF (congestive heart failure): Qualifiers: Heart failure type: unspecified Qualified Code(s): I50.9 - Heart failure, unspecified Code(s): I50.9 - Heart failure, unspecified Status: Acute Assessment and Plan: Acute on chronic systolic CHF. Slowly diuresing and slowly improving but having trouble with medications due to low blood pressure. Renal fxn stable. Continue dobutamine. Continue low-dose carvedilol, IV diuretics. Spironolactone reduced to 25 mg daily due to hypotension. Will continue Entresto blood pressure as patient is tolerating the low blood pressure. Eventually needs to have Bi V device. Will place a life vest and pursue Bi V ICD as an outpatient. Ordered daily BMP. Check chest x-ray to re-evaluate pulmonary vascular congestion. Increase activity to assess LARIOS and tolerance of low blood pressure. (2) Cardiomyopathy: Code(s): I42.9 - Cardiomyopathy, unspecified Status: Acute Assessment and Plan: New cardiomyopathy, EF 15%. (3) Paroxysmal atrial fibrillation: Code(s): I48.0 - Paroxysmal atrial fibrillation Status: Acute Assessment and Plan: History of atrial flutter and paroxysmal AFib. Went back in atrial fibrillation on 08/27/2021, rate fairly well controlled, then converted to NSR 08/28/2021. Increased amiodarone to 400 mg daily 08/28/21. Had a GI bleed after her CABG and has not been anticoagulated because of this. Apnea Link mildly abnormal so pt may have THO which will eval further at a later date. (4) LBBB (left bundle branch block): Code(s): I44.7 - Left bundle-branch block, unspecified Status: Acute Assessment and Plan: New since surgery (5) History of mitral valve replacement with bioprosthetic valve: Code(s): Z95.3 - Presence of xenogenic heart valve Status: Acute (6) H/O tricuspid valve annuloplasty: Code(s): Z98.890 - Other specified postprocedural states Status: Acute (7) CAD (coronary artery disease): Qualifiers: Associated angina: without angina Coronary Disease-Associated Artery/Lesion type: [place] artery [place] vs. transplanted heart: [place] heart Qualified Code(s): I25.10 - Atherosclerotic heart disease of [place] coronary artery without angina pectoris Code(s): I25.10 - Atherosclerotic heart disease of [place] coronary artery without angina pectoris Status: Chronic Assessment and Plan: Status post CABG x2 in April 2021, stable CAD w/o angina. (8) Acute hyponatremia: Code(s): E87.1 - Hypo-osmolality and hyponatremia Status: Acute Assessment and Plan: Mild hyponatremia noted, will continue to follow. No BMP avail today; ordered daily BMPs. Subjective Date/time seen: 08/29/21 08:30 Interval history: Follow-up visit in this 71-year-old lady with: History of coronary disease and valvular heart disease admitted to the hospital 08/24/2021 from the office because of CHF decompensation. Patient very surprisingly found to have a very low ejection fraction which was new information after coronary bypass, mitral valve replacement and tricuspid valve repair 05/24/2021. Ejection fraction which was normal previously is now 10-15%. She also has a history of persistent AFib/flutter being treated with amiodarone and now in sinus rhythm. Also has new left bundle branch block. Long discussion with the patient about the implications of this the need to treat her for systolic rather than diastolic heart failure. 08/26/2021: She feels no shortness of breath at rest. Her swelling feels slightly better and her legs are slightly less taut. No chest pain 08/27/2021: Patient is feeling better day by day as she diuresis. Her lower extremity edema is clearly improving. She has been off of lisinopril for several days at this time. Started very low-dose of
[2021-08-29] MEDS: SPIRONOLACTONE 25 MG TABLET PO (08:41)
[2021-08-29] MEDS: AMIODARONE HCL 200 MG TABLET PO ×2 (08:41→10:08)
[2021-08-29] MEDS: FERROUS SULFATE 324 MG TABLET 648 MG PO (08:41)
[2021-08-29] MEDS: SACUBITRIL/VALSARTAN 12-13 MG TABLET 1 TAB PO ×2 (08:41→20:12)
[2021-08-29] MEDS: ASPIRIN 325 MG TABLET PO (08:42)
[2021-08-29] MEDS: PANTOPRAZOLE 40 MG TABLET PO (08:43)
[2021-08-29] MEDS: POTASSIUM CHLORIDE 20 MEQ TABLET.ER 40 MEQ PO (08:43)
[2021-08-29] MEDS: carvediloL 3.125 MG TABLET PO (10:08)
[2021-08-29] MEDS: FUROSEMIDE INJ 40 MG/4 ML VIAL IV PUSH ×2 (10:08→16:59)
[2021-08-29] MEDS: DOBUTamine 250 MG/D5W 250 ML 250 MG/250 ML BAG 12.32 MG IV CONT (20:07)
[2021-08-29] MEDS: ALBUTEROL SULFATE (*SP) AEROSOL 1 PUFF INHALATION (20:12)
[2021-08-30] VITALS (19 sets, daily range): BP systolic 98–106; BP diastolic 52–63; PULSE 71–79; RESP 18–20; TEMP 36.1–37; O2SAT 96–99
[2021-08-30 05:21] LABS: Anion Gap 3 mmol/L (8-16); Blood Urea Nitrogen 23 mg/dL (7-17); Carbon Dioxide 28 mmol/L (22-30); Chloride 95 mmol/L (98-107); Estimated CRCL calculation 40 ml/min; Estimated Glomerular Filt Rate 44; Glucose 85 mg/dL (65-110); Sodium 126 mmol/L (137-145)
[2021-08-30] MEDS: LEVOTHYROXINE SODIUM 25 MCG TABLET PO (06:14)
[2021-08-30] MEDS: FUROSEMIDE INJ 40 MG/4 ML VIAL IV PUSH ×2 (08:46→16:37)
[2021-08-30] MEDS: ASPIRIN 325 MG TABLET PO (08:46)
[2021-08-30] MEDS: carvediloL 3.125 MG TABLET PO ×2 (08:48→20:58)
[2021-08-30] MEDS: AMIODARONE HCL 200 MG TABLET 400 MG PO (08:49)
[2021-08-30] MEDS: PANTOPRAZOLE 40 MG TABLET PO (08:49)
[2021-08-30] MEDS: SPIRONOLACTONE 25 MG TABLET PO (12:09)
[2021-08-30] MEDS: FERROUS SULFATE 324 MG TABLET 648 MG PO (12:10)
--- NOTE | 2021-08-30 12:10 | PM.PNCARD ---
Progress Note: A&P Additional Plan 71-year-old lady with: Coronary artery disease, valvular heart disease status post recent bypass grafting, mitral valve replacement and tricuspid valve repair. Surprisingly and unexpectedly her left ventricular systolic function has declined precipitously and she has developed systolic heart failure. She also has a new left bundle branch block which was not present prior to surgery. She is responding satisfactorily to the current regimen and I will plan on discontinuing the dobutamine either tomorrow or Monday and then anticipate discharging her so that she can follow-up with her ext js developer on . In addition to this she would benefit from referral to the Heart failure group at [place] since she has an exceedingly low ejection fraction. Harish Gupta MD [facility] Subjective Date/time seen: 08/30/21 12:10 Interval history: Follow-up visit in this 71-year-old lady with: History of coronary disease and valvular heart disease admitted to the hospital 08/24/2021 from the office because of CHF decompensation. Patient very surprisingly found to have a very low ejection fraction which was new information after coronary bypass, mitral valve replacement and tricuspid valve repair 05/24/2021. Ejection fraction which was normal previously is now 10-15%. She also has a history of persistent AFib/flutter being treated with amiodarone and now in sinus rhythm. Also has new left bundle branch block. Long discussion with the patient about the implications of this the need to treat her for systolic rather than diastolic heart failure. 08/26/2021: She feels no shortness of breath at rest. Her swelling feels slightly better and her legs are slightly less taut. No chest pain 08/27/2021: Patient is feeling better day by day as she diuresis. Her lower extremity edema is clearly improving. She has been off of lisinopril for several days at this time. Started very low-dose of Entresto today, 12/13 mg b.i.d. 08/28/2021: A little dizzy at times, breathing continues to improve, swelling persists but has improved. Went back and atrial fibrillation yesterday morning, heart rate 80-100. BP was in the 80s-low 100's yesterday, systolic BP 93 today. Diuresed another 700 cc. Remains on dobutamine 2.5 mics per kilos per minute. Increased amiodarone to 400 mg daily because of atrial fibrillation. Date of service 08/29/2021: No dizziness or SOB but not ambulating either. Converted to sinus rhythm yesterday morning has remained in sinus rhythm heart rate 70s. Blood pressure 80 9-104 systolic. Only very mild diuresis yesterday. Life Vest approved. Pt hopes to go home soon. Date of service 08/30/2021: Events of weekend noted. Patient was persistently hypotensive and so the Entresto has been stopped. Discussed with the patient that we will resume the low-dose of lisinopril she was on in the past. She is benefiting from the dobutamine infusion with IV furosemide volume overload is improving day by day. That being the case the plan will be to continue this at least for another 24 hours and then consider discharge on Monday or Monday. She does have an appointment with her ext js developer at [place] on which both the patient and I would like to not cancel. Exam Narrative: Pleasant older lady finishing breakfast, no distress Const: General: comfortable and no acute distress HENMT: General nose exam: no epistaxis Mouth: Yes moist mucous membranes Eyes: Sclera: sclerae normal Pupils: Equal, round and reactive pupils present EOM: EOMs intact bilaterally Neck: Neck: supple Other: No carotid bruit, difficult to assess JVD Resp: Effort & Inspection: normal respiratory effort Auscultation: rales Other: Diminished breath sounds left base, scattered wheezes Cardio: Rate: regular rate Rhythm: regular rhythm Heart sounds: no murmurs Other: PMI difficult to palpate, no murmur S3 is audible GI:
--- NOTE | 2021-08-30 14:04 | PCDIET ---
Weekly nutritional screen. Patient is tolerating current diet with adequate intake. No weight loss reported. BMI 36.5. No nutritional needs at this time.
[2021-08-30] MEDS: DOBUTamine 250 MG/D5W 250 ML 250 MG/250 ML BAG 12.32 MG IV CONT (16:36)
[2021-08-31] VITALS (15 sets, daily range): BP systolic 75–110; BP diastolic 46–64; PULSE 57–84; RESP 16–20; TEMP 36.1–36.9; O2SAT 94–98
[2021-08-31 05:13] LABS: Potassium 4.2 mmol/L (3.4-5.0)
[2021-08-31] MEDS: LEVOTHYROXINE SODIUM 25 MCG TABLET PO (06:09)
[2021-08-31] MEDS: DOBUTamine 250 MG/D5W 250 ML 250 MG/250 ML BAG 12.32 MG IV CONT (09:33)
[2021-08-31] MEDS: carvediloL 3.125 MG TABLET PO (09:35)
[2021-08-31] MEDS: AMIODARONE HCL 200 MG TABLET 400 MG PO (09:35)
[2021-08-31] MEDS: ASPIRIN 325 MG TABLET PO (09:35)
[2021-08-31] MEDS: lisinopriL 5 MG TABLET PO (09:36)
[2021-08-31] MEDS: SPIRONOLACTONE 25 MG TABLET PO (09:36)
[2021-08-31] MEDS: PANTOPRAZOLE 40 MG TABLET PO (09:36)
[2021-08-31] MEDS: FUROSEMIDE INJ 40 MG/4 ML VIAL IV PUSH (09:36)
[2021-08-31] MEDS: FERROUS SULFATE 324 MG TABLET 648 MG PO (09:36)
--- NOTE | 2021-08-31 11:13 | PM.PNCARD ---
Progress Note: A&P Assessment and Plan (1) Acute exacerbation of CHF (congestive heart failure): Qualifiers: Heart failure type: unspecified Qualified Code(s): I50.9 - Heart failure, unspecified Code(s): I50.9 - Heart failure, unspecified Status: Acute Assessment and Plan: Acute on chronic systolic CHF. Slowly diuresing and slowly improving but having trouble with medications due to low blood pressure. Entrestohas been discontinued because of this. Continue low-dose carvedilol, IV diuretics. Anticipate transitioning to oral diuretics tomorrow. Spironolactone reduced to 25 mg daily due to hypotension. Continue lisinopril 5mg daily Eventually needs to have Bi V device. Has appt with EP at [facility] Check BMP daily - renal function and electrolytes stable today. CLYDE rogelio ordered Increase activity to assess LARIOS and tolerance of low blood pressure. (2) Cardiomyopathy: Code(s): I42.9 - Cardiomyopathy, unspecified Status: Acute Assessment and Plan: New cardiomyopathy, EF 15%. (3) Paroxysmal atrial fibrillation: Code(s): I48.0 - Paroxysmal atrial fibrillation Status: Acute Assessment and Plan: History of atrial flutter and paroxysmal AFib. Went back in atrial fibrillation on 08/27/2021, rate fairly well controlled, then converted to NSR 08/28/2021. Increased amiodarone to 400 mg daily 08/28/21. Had a GI bleed after her CABG and has not been anticoagulated because of this. Apnea Link mildly abnormal so pt may have THO which will eval further at a later date. (4) LBBB (left bundle branch block): Code(s): I44.7 - Left bundle-branch block, unspecified Status: Acute Assessment and Plan: New since surgery (5) History of mitral valve replacement with bioprosthetic valve: Code(s): Z95.3 - Presence of xenogenic heart valve Status: Acute (6) H/O tricuspid valve annuloplasty: Code(s): Z98.890 - Other specified postprocedural states Status: Acute (7) CAD (coronary artery disease): Qualifiers: Associated angina: without angina Coronary Disease-Associated Artery/Lesion type: [place] artery [place] vs. transplanted heart: [place] heart Qualified Code(s): I25.10 - Atherosclerotic heart disease of [place] coronary artery without angina pectoris Code(s): I25.10 - Atherosclerotic heart disease of [place] coronary artery without angina pectoris Status: Chronic Assessment and Plan: Status post CABG x2 in April 2021, stable CAD w/o angina. (8) Acute hyponatremia: Code(s): E87.1 - Hypo-osmolality and hyponatremia Status: Acute Assessment and Plan: Sodium continues to decrease, 126 today. 1500cc fluid restriction. Subjective Date/time seen: 08/31/21 11:13 Interval history: Follow-up visit in this 71-year-old lady with: History of coronary disease and valvular heart disease admitted to the hospital 08/24/2021 from the office because of CHF decompensation. Patient very surprisingly found to have a very low ejection fraction which was new information after coronary bypass, mitral valve replacement and tricuspid valve repair 05/24/2021. Ejection fraction which was normal previously is now 10-15%. She also has a history of persistent AFib/flutter being treated with amiodarone and now in sinus rhythm. Also has new left bundle branch block. Long discussion with the patient about the implications of this the need to treat her for systolic rather than diastolic heart failure. 08/26/2021: She feels no shortness of breath at rest. Her swelling feels slightly better and her legs are slightly less taut. No chest pain 08/27/2021: Patient is feeling better day by day as she diuresis. Her lower extremity edema is clearly improving. She has been off of lisinopril for several days at this time. Started very low-dose of Entresto today, 12/13 mg b.i.d. 08/28/2021: A lit
[2021-09-01] VITALS (7 sets, daily range): BP systolic 70–95; BP diastolic 42–61; PULSE 58–74; RESP 12–20; TEMP 36.3–36.6; O2SAT 94–100
[2021-09-01] MEDS: LEVOTHYROXINE SODIUM 25 MCG TABLET PO (05:15)
[2021-09-01] MEDS: FERROUS SULFATE 324 MG TABLET 648 MG PO (08:33)
[2021-09-01] MEDS: ATORVASTATIN 40 MG TABLET 80 MG PO (08:33)
[2021-09-01] MEDS: AMIODARONE HCL 200 MG TABLET 400 MG PO (08:34)
[2021-09-01] MEDS: lisinopriL 5 MG TABLET PO (08:34)
[2021-09-01] MEDS: PANTOPRAZOLE 40 MG TABLET PO (08:34)
[2021-09-01] MEDS: ASPIRIN 325 MG TABLET PO (08:34)
[2021-09-01] MEDS: SPIRONOLACTONE 25 MG TABLET PO (08:34)
[2021-09-01] MEDS: carvediloL 3.125 MG TABLET PO (08:34)
[2021-09-01] MEDS: FUROSEMIDE INJ 40 MG/4 ML VIAL IV PUSH (08:36)
--- NOTE | 2021-09-01 12:35 | PM.DS ---
DS: Admitting Diagnosis Discharge Date September 01, 2021 Admitting Diagnosis Congestive heart failure DS: Discharge Diagnosis Discharge Diagnosis (1) Cardiomyopathy: Code(s): I42.9 - Cardiomyopathy, unspecified Status: Acute (2) LBBB (left bundle branch block): Code(s): I44.7 - Left bundle-branch block, unspecified Status: Acute DS: Summary Hospital Course Reason for hospitalization: Congestive heart failure Hospital Course: This is a 71-year-old woman with a known history of coronary disease and valvular heart disease admitted to the hospital from the office because of severe left ventricular systolic dysfunction and congestive heart failure. She underwent coronary artery bypass grafting, mitral valve replacement and tricuspid valve repair at [facility] several months ago in the summer of this year and initially did well. She had persistent problems however with edema/volume overload and an echocardiogram done in the office surprisingly demonstrated profoundly depressed left ventricular systolic function which was not the case prior to her cardiac operation. She is having no ischemic symptoms. She also had a new left bundle branch block and her prosthetic mitral valve is functioning normally her repaired tricuspid valve is not significantly regurgitant. The patient was admitted to the hospital placed on intravenous furosemide. She had a very low ejection fraction of 10-15%. Because of this she responded poorly to furosemide I then placed her on intravenous dobutamine infusion which prompted a relatively nice diuresis she was continued on dobutamine for 5-6 days. She became much more comfortable she still has some bipedal edema but no pulmonary congestion and no symptoms of dyspnea any longer. She was placed on Entresto in place of her lisinopril but this resulted in problematic hypotension she was transitioned back to lisinopril during this hospital stay. The remainder of her medical regimen remains unchanged. She is being referred to the electrophysiology service at [facility] to consider a defibrillator device. She had a Life Vest device applied during this hospitalization. She also was referred to the [facility] at that institution as well since she has a profoundly reduced ejection fraction at this time. Today and yesterday she is ambulating in the room and somewhat in the gonzales is not symptomatic with hypotension and seems to be an acceptable candidate for discharge. She was told to restrict herself to very light activity in the house and her will be driving her to [facility] tomorrow for her consultation/appointment with the feeder driver solar consultant. Status at Discharge Functional status at discharge: independent ambulation Overall status at discharge: patient is progressing back to baseline Time Spent with Patient Time attestation: Total time spent providing and/or coordinating discharge services: Time spent: Less than 30 minutes Exam Const: General: comfortable and no acute distress Other: Pleasant white female sitting eating her lunch no distress of any kind HENMT: Mouth: Yes moist mucous membranes Eyes: Sclera: sclerae normal Pupils: Equal, round and reactive pupils present Neck: Neck: supple Other: No carotid bruit no significant JVD remains Resp: Effort & Inspection: normal respiratory effort Auscultation: clear to auscultation bilaterally Cardio: Rate: regular rate Rhythm: regular rhythm Other: Paradoxically split S2 no murmur GI: GI Palp: Yes Soft to palpation Auscultation: normal bowel sounds Skin: General skin exam: normal color Extrem: General: normal to inspection Discharge Plan Discharge Attending physician on discharge: Nikolay Pablo Discharging Clinician: Harish Gupta Patient Disposition: Home, Self-Care Activity: as tolerated Diet: heart healthy Patient Instructions: Antibiotic Form, Sacubitril/Valsartan (By danielle
== END 2021-09-01 13:54 | disposition home or self-care (01) | DRG 291 ==
PROVIDERS: Internal Medicine Cardiovascular Disease; Nurse Practitioner; Admitting Provider Internal Medicine Cardiovascular Disease; PCP Family Medicine Adolescent Medicine; Visit Provider Specialist
DX: I11.0 Hypertensive heart disease with heart failure (principal); I50.23 Acute on chronic systolic (congestive) heart failure; N17.9 Acute kidney failure, unspecified; E87.1 Hypo-osmolality and hyponatremia; I48.19 Other persistent atrial fibrillation; I35.0 Nonrheumatic aortic (valve) stenosis; I95.9 Hypotension, unspecified; I25.10 Atherosclerotic heart disease of native coronary artery without angina pectoris; J44.9 Chronic obstructive pulmonary disease, unspecified; E78.5 Hyperlipidemia, unspecified; F32.A Depression, unspecified; I42.9 Cardiomyopathy, unspecified; I44.7 Left bundle-branch block, unspecified; G47.33 Obstructive sleep apnea (adult) (pediatric); I25.2 Old myocardial infarction; Z95.1 Presence of aortocoronary bypass graft; Z95.5 Presence of coronary angioplasty implant and graft; Z95.4 Presence of other heart-valve replacement; Z79.82 Long term (current) use of aspirin; Z95.3 Presence of xenogenic heart valve
CPT/HCPCS: 36415; 71045; 80048; 80299; 83880; 84132; 85027; 93005; 94640; A9270; J1250; J1940

== ENCOUNTER 2021-09-28 08:05 | Inpatient (IN) | payer MEDICARE, SELFPAY ==
[2021-09-28] VITALS (27 sets, daily range): BP systolic 78–127; BP diastolic 58–85; PULSE 76–130; RESP 12–25; TEMP 36.3–36.8; O2SAT 94–98
--- NOTE | ~2021-09-28 | XR_ITS ---
EXAMINATION: XR chest 2V EXAM DATE: 09/28/2021 08:46 INDICATION: Shortness of breath. Atrial fibrillation. HX: CHF, CAD, COPD, CABG, HTN. TECHNIQUE: Frontal and lateral projections of the chest obtained and reviewed. Comparison is made to prior examination from 08/29/2021. FINDINGS: Sternotomy wires. Cardiac valve replacements. Cardiomegaly and pulmonary vascular congesti on. Small left pleural effusion with improvement. Small amount of bibasilar edema, atelectasis or pne umonia. There is no pneumothorax suspected. There are bony degenerative changes. IMPRESSION: 1. Cardiomegaly, pulmonary vascular congestion, small left effusion. 2. Bibasilar atelectasis, edema or pneumonia. Reviewed, dictated and finalized at location [facility]. [facility]
--- NOTE | 2021-09-28 08:13 | ECG_ITS ---
Measurements Intervals [place] Rate: 126 P: MN: 0 QRS: 14 QRSD: 153 T: 120 QT: 374 QTc: 542 Interpretive Statements ATRIAL FLUTTER/TACHYCARDIA WITH RAPID VENTRICULAR RESPONSE LEFT BUNDLE BRANCH BLOCK ABNORMAL ECG Electronically Signed On 09-28-2021 8:42:01 COUNTY ASSESSOR by Isac Dey D.O.
--- NOTE | 2021-09-28 08:36 | ED.GENADULT ---
HPI - General Adult General Chief complaint: Arrhythmia/Palpitations Stated complaint: afib Time Seen by Provider: 09/28/21 08:19 Source: patient History of Present Illness HPI narrative: Patient is a 71 y/o female complaining of moderate SOB since yesterday. There is no known alleviating or exacerbating factor. She has no chest pain, fever or cough. She has known history of CHF and A fib. Related Data Home Medications Medication Instructions Recorded Confirmed Stiolto Respimat 1 inh INHALATION Q12H 01/10/21 08/24/21 pantoprazole 40 mg PO DAILY 04/15/21 08/24/21 aspirin 325 mg PO DAILY 07/09/21 08/24/21 ferrous sulfate [Feosol] 650 mg PO DAILY 07/09/21 08/24/21 Asmanex HFA 1 puff INHALATION Q12H 08/24/21 08/24/21 furosemide 80 mg PO BID 08/24/21 08/24/21 lisinopril 5 mg PO DAILY 08/24/21 08/24/21 nitroglycerin See Rx Instructions .ROUTE .COMPLEX 08/24/21 08/24/21 Allergies Allergy/AdvReac Type Severity Reaction Status Date / Time No Known Allergies Allergy Verified 09/28/21 08:23 Review of Systems Constitutional: Constitutional: Denies chills, Denies fever(s), Denies headache(s) and Denies weakness Eyes: Eyes: Denies blurry vision ENT: Denies headache(s) and Denies neck pain Cardiovascular: Cardiovascular: Denies chest pain and Reports dyspnea Respiratory: Respiratory: Denies cough and Reports dyspnea Gastrointestinal: Gastrointestinal: Denies abdominal pain, Denies diarrhea, Denies nausea and Denies vomiting Genitourinary: Genitourinary: Denies hematuria and Denies dysuria Musculoskeletal: Musculoskeletal: Denies back pain and Denies neck pain Neurologic: Denies headache(s) and Denies weakness [facility] Past Medical History Medical History Acute exacerbation of CHF (congestive heart failure) Aortic stenosis Atrial fibrillation CAD (coronary artery disease) Cardiomyopathy COPD (chronic obstructive pulmonary disease) Depression Heart attack History of GI bleed Shortly after her CABG Hyperlipidemia Hypertension Nephrolithiasis Paroxysmal atrial fibrillation Surgical History Surgical History H/O tubal ligation H/O two vessel coronary artery bypass graft Heart valve replaced Patient stated that she had a 1 valve repair and 1 hard bowel replace with a PIg valve History of coronary artery stent placement S/P coronary artery stent placement Family History Family History Father Cancer Mother Acute myocardial infarction Congestive heart failure Son Diabetes mellitus Sibling Chronic obstructive pulmonary disease Social History Social History Social History: The patient lives with her and her son. Her is a durable power immigration attorney for healthcare in the event that he is not able to make decisions that her children will make the decision for her. She is a full code. The patient still smokes about half a pack a cigarettes a day for 50 years. Prior to COVID-19 the patient was working for the [employer]. The patient has 3 sons. She does not use any alcohol marijuana or illicit drugs. Smoking packs per day: 0.5 Smoking cigarettes per day: 10.0 Years smoked: 50 Smoking pack-years: 25.00 Smoking status: Current every day smoker Tobacco type: cigarettes Second hand tobacco smoke exposure: No Additional smoking assessment comments: down to 0.5 ppd from 3 ppd for over 50 years Alcohol intake: never Substance use: never Substance use type: does not use Gender identity (if verbalized by the patient): Female Spiritual care concerns: No Exam Const: General: no acute distress and well developed Orientation/consciousness: oriented to person, oriented to place, oriented to time and patient oriented x3 HENMT: Head: normocephalic Ears: external ears nor
[2021-09-28 08:43] LABS: Basophils Absolute Auto 0.1 K/mm3 (0.0-0.1); Basophils Percent Auto 0.7 % (0.2-1.2); Eosinophils Absolute Auto 0.1 K/mm3 (0-0.3); Eosinophils Percent Auto 1.5 % (0-4.4); Hematocrit 49.4 % (37.0-47.0); Hemoglobin 16.5 g/dL (12.0-15.0); Immature Granulocyte Absolute 0.03 K/mm3 (0.00-0.031); Immature Granulocyte Percent A 0.4 % (0-0.5); Lymphocytes Percent Auto 18.5 % (18.3-44.2); Mean Corpuscular HGB Conc 33.4 g/dl (32-36); Mean Corpuscular Hemoglobin 28.3 pg (26-34); Mean Corpuscular Volume 84.7 fl (80-100); Mean Platelet Volume 10.6 fl (7.4-10.4); Monocytes Absolute Auto 0.4 K/mm3 (0.1-0.6); Monocytes Percent Auto 5.2 % (2.6-8.5); Neutrophils Absolute Auto 5.6 K/mm3 (1.3-6.7); Neutrophils Percent Auto 73.7 % (45.5-73.1); Platelet Count Result 221 k/mm3 (150-375); Red Blood Count 5.83 M/mm3 (4.2-5.4); Red Cell Distribution Width 16.3 % (11.5-14.5); White Blood Count 7.6 K/mm3 (4.5-10.0)
[2021-09-28 08:49] LABS: INR 1.1; Prothrombin Time 13.6 Seconds (11.1-14.7)
[2021-09-28 08:50] LABS: Partial Thromboplastin Time 30.3 SECONDS (22.3-36.8)
[2021-09-28 08:52] LABS: Alanine Aminotransferase 14 U/L (4-35); Albumin Level 4.1 g/dL (3.5-5.1); Alkaline Phosphatase 101 U/L (38-126); Anion Gap 9 mmol/L (8-16); Aspartate Amino Transferase 24 U/L (14-36); Bilirubin,Total 0.8 mg/dL (0.2-1.3); Blood Urea Nitrogen 22 mg/dL (7-17); Calcium 9.6 mg/dL (8.4-10.2); Carbon Dioxide 23 mmol/L (22-30); Chloride 102 mmol/L (98-107); Estimated CRCL calculation 38 ml/min; Estimated Glomerular Filt Rate 44; Glucose 168 mg/dL (65-110); Lipase 39 U/L (23-300); Potassium 4.1 mmol/L (3.4-5.0); Sodium 134 mmol/L (137-145)
[2021-09-28 09:06] LABS: Troponin I 0.046 ng/mL (0.000-0.034)
[2021-09-28] MEDS: ASPIRIN 81 MG CHEWABLE TABLET 324 MG PO (09:08)
[2021-09-28] MEDS: FUROSEMIDE INJ 40 MG/4 ML VIAL IV PUSH ×2 (09:09→21:37)
[2021-09-28 09:10] LABS: NT Pro B Type Natriuretic Pept 31200 pg/mL (5-100)
[2021-09-28] MEDS: DIGOXIN INJ 250 MCG/ML 2 ML AMP (*BKC) IV PUSH (09:13)
--- NOTE | 2021-09-28 10:05 | PC.NURSE ---
No acute distress, after going to bathroom denies any other needs.
[2021-09-28 11:58] LABS: Troponin I 0.165 ng/mL (0.000-0.034)
--- NOTE | 2021-09-28 12:55 | PM.IMHP ---
H&P: HPI History of Present Illness Date/Time: 09/28/21 12:55 Chief Complaint: Shortness of breath. Narrative: This is a pleasant 71-year-old female smoker with coronary artery disease status post 2 vessel bypass, paroxysmal atrial fibrillation status post left atrial appendage ligation, mitral valve regurgitation status post mitral valve replacement and tricuspid valve repair in summer 2020, severe cardiomyopathy with most recent ejection fraction of 10 to 15% on Life Vest, and COPD who presented to the emergency department earlier today from home for evaluation of shortness of breath. She was admitted to the cardiology service at the beginning of August with decompensated heart failure and she was placed on a dobutamine infusion for 5 to 6 days with improvement in her symptoms. Life Vest was applied during that stay and she was referred to electrophysiology at [facility] for consideration of a defibrillator and she was also referred to the [facility] due to profoundly reduced ejection fraction. She has been feeling pretty good and tells me that she felt ?great? on and she feels that perhaps she over did things as over the last several days she has developed mild lower extremity edema, orthopnea, and dyspnea on lesser and lesser exertion. When she got out of bed this morning she was much more short of breath and at that time she checked her pulse ox and reports that her heart rate was erratic in the 140s. On arrival to the emergency department she was in atrial fibrillation with rapid ventricular response and she was given a dose of digoxin which has improved her rate. She is being admitted at this time for diuresis given lower extremity swelling and pulmonary edema on imaging. She states compliance with her diet and medications however she does note that she had issues with worsening renal function while on diuretics and the doses of those had to be decreased. She denies syncope, near syncope, chest pain, pleuritic pain, palpitations, cough, nausea, vomiting, and sweats. No cold or flu symptoms. No wheezing. Review of Systems Review of Systems: Twelve systems were reviewed and are negative except for as per HPI. [facility] Past Medical History Medical History (Updated 09/28/21 @ 19:23 by Sona Gardner PA-C) Aortic stenosis Cardiomyopathy Ejection fraction of 10 to 15%, on LifeVest. Chronic obstructive pulmonary disease Congestive heart failure Contraindication to anticoagulation therapy Secondary to GI bleed. Status post left atrial appendage ligation. Coronary artery disease Status post 2 vessel bypass. Depression GI bleed Gout Hyperlipidemia Hypertension Hypothyroidism Kidney stones Left bundle branch block Nephrolithiasis Paroxysmal atrial fibrillation Psoriasis Tobacco dependence Surgical History Surgical History (Updated 09/28/21 @ 19:15 by Sona Gardner PA-C) History of appendectomy History of coronary artery stent placement History of mitral valve replacement with bioprosthetic valve History of tricuspid valve repair History of tubal ligation History of two vessel coronary artery bypass graft Status post ligation of left atrial appendage Family History Family History Father Cancer Mother Acute myocardial infarction Congestive heart failure Son Diabetes mellitus Sibling Chronic obstructive pulmonary disease Social History Social History (Updated 09/28/21 @ 19:17 by Sona Gardner PA-C) Social History: The patient lives with her and 1 of their sons in [place]. She has to other sons that live nearby. She smoked up to 3 packs of cigarettes a day at 1 time but she is down to about half a pack a day. She denies alcohol and illicit substance use. The patient still smokes about half a pack a cigarettes a day for 50 years. Prior to the patient was working for the [employer]. She designates her Miguel
--- NOTE | 2021-09-28 14:57 | ADMGEN ---
This patient, Monica Rangel, was admitted to IMU Room 204-01 on 09/28/21 at 1455. Patient/family oriented to hospital policies and general routines including ID bracelet, bed and alarms, visiting hours, pain management, procedures, bathroom and other care routines, personal items, smoking policy, room service/diet, and visiting hours. Information on how to activate the Rapid Response Team has been discussed. Patient/Family are encouraged to report perceived risks to care and to ask questions if they do not understand what they are told or what they should do.
[2021-09-28 16:02] LABS: Troponin I 0.416 ng/mL (0.000-0.034)
--- NOTE | 2021-09-28 16:45 | PM.CNCAR ---
Assessment and Plan Assessment and plan (1) Cardiomyopathy: Code(s): I42.9 - Cardiomyopathy, unspecified <GO Musa - Last Filed: 09/28/21 18:14> Status: Acute <GO Musa - Last Filed: 09/28/21 18:14> Assessment and Plan: HFrEF revealed by echo in June of this year. Severely reduced LVEF at 10-15%. She is on medical therapy with GIANCARLO and furosemide. Unable to tolerate additional GDMT due to hypotension and FRANK. She has a LifeVest in place and is established with EP clinic at [facility] for consideration for BiV ICD. Continue lisinopril 5mg daily Continue diuresis with IV furosemide for now (40mg b.i.d). Mildly hypotensive now - ideally would like to add spironolactone, coreg ? add SGLT2 inhibitor when volume status is stabilized <GO Musa - Last Filed: 09/28/21 18:14> (2) CHF (congestive heart failure): Qualifiers: Heart failure chronicity: acute on chronic Heart failure type: systolic Qualified Code(s): I50.23 - Acute on chronic systolic (congestive) heart failure <GO Musa - Last Filed: 09/28/21 18:14> Code(s): I50.9 - Heart failure, unspecified <GO Musa - Last Filed: 09/28/21 18:14> Status: Acute <GO Musa - Last Filed: 09/28/21 18:14> Assessment and Plan: Presents with acute shortness of breath and some lower extremity edema. This is probably secondary to recent reduction in her diuretic regimen because of worsening renal function. She denies any dietary indiscretions, says she watches her salt intake closely. BNP elevated at 31,200. CXR showing some pulmonary edema and small right pleural effusion. Diuresis with IV furosemide 40mg b.i.d Monitor renal function and electrolytes closely with daily BMP maintain compression stockings daily weights accurate intake and outputs <GO Musa - Last Filed: 09/28/21 18:14> (3) Atrial fibrillation with RVR: Code(s): I48.91 - Unspecified atrial fibrillation <GO Musa - Last Filed: 09/28/21 18:14> Status: Acute <GO Musa - Last Filed: 09/28/21 18:14> Assessment and Plan: History of paroxysmal atrial fibrillation on amiodarone 200mg daily. Presented in atrial fibrillation with RVR and was treated with digoxin which has controlled her rate adequately. In atrial fibrillation at the time of exam with rate in the 90's. Continue amiodarone. Not on a/c as she is s/p left atrial appendage ligation. <GO Musa - Last Filed: 09/28/21 18:14> (4) LBBB (left bundle branch block): Code(s): I44.7 - Left bundle-branch block, unspecified <GO Musa - Last Filed: 09/28/21 18:14> Status: Acute <GO Musa - Last Filed: 09/28/21 18:14> Assessment and Plan: This is chronic. <GO Musa - Last Filed: 09/28/21 18:14> (5) Elevated troponin: Code(s): R77.8 - Other specified abnormalities of plasma proteins <GO Musa - Last Filed: 09/28/21 18:14> Status: Acute <GO Musa - Last Filed: 09/28/21 18:14> Assessment and Plan: This is likely secondary to CHF and atrial fibrillation. She denies any chest pain. <GO Musa - Last Filed: 09/28/21 18:14> Additional Plan Addendum: Patient seen and examined, chart reviewed. Agree with DISTILLERY MILLER Camille Montana's assessment: Patient has developed some mild CHF since her furosemide 80 mg b.i.d. was held due to renal issues. H/O PAF and was discharged in July in sinus rhythm but today arrives in atrial fib, rate 126 on admission, improved after 1 dose of IV digoxin. Taking amiodarone for 200 mg daily and aspirin; her left atrial appendage was ligated and she has history of GI bleeding so not anticoagulated. On exam she has rales in the bases some mild lower extremity edema. He
[2021-09-28] MEDS: FLUTICASONE PROP 110 MCG INHALER 12 GM (*SP) 2 PUFF INHALATION (22:56)
[2021-09-29] VITALS (8 sets, daily range): BP systolic 97–106; BP diastolic 57–74; PULSE 69–89; RESP 16–20; TEMP 36.4–36.9; O2SAT 93–99
[2021-09-29 05:13] LABS: Hemoglobin 14.4 g/dL (12.0-15.0); Mean Corpuscular HGB Conc 33.5 g/dl (32-36); Mean Corpuscular Hemoglobin 27.5 pg (26-34); Mean Corpuscular Volume 82.2 fl (80-100); Mean Platelet Volume 11.2 fl (7.4-10.4); Platelet Count Result 180 k/mm3 (150-375); Red Blood Count 5.23 M/mm3 (4.2-5.4); Red Cell Distribution Width 15.7 % (11.5-14.5); White Blood Count 7.6 K/mm3 (4.5-10.0)
[2021-09-29 05:23] LABS: Anion Gap 6 mmol/L (8-16); Blood Urea Nitrogen 22 mg/dL (7-17); Carbon Dioxide 28 mmol/L (22-30); Chloride 98 mmol/L (98-107); Estimated CRCL calculation 38 ml/min; Estimated Glomerular Filt Rate 44; Glucose 104 mg/dL (65-110); Magnesium 1.8 mg/dL (1.6-2.3); Potassium 3.4 mmol/L (3.4-5.0); Sodium 132 mmol/L (137-145)
[2021-09-29] MEDS: LEVOTHYROXINE SODIUM 25 MCG TABLET PO (05:59)
[2021-09-29 07:31] LABS: Free T4 Free Thyroxine Reflex 1.09 ng/dL (0.78-2.19)
[2021-09-29 09:04] LABS: Total Triiodothyronine (T3) 0.92 NG/ML (0.97-1.69)
[2021-09-29] MEDS: UMECLIDINIUM/VILANTEROL 62.5-25 MCG ELLIPTA 1 PUFF INHALATION (09:04)
[2021-09-29] MEDS: FLUTICASONE PROP 110 MCG INHALER 12 GM (*SP) 2 PUFF INHALATION (09:04)
[2021-09-29] MEDS: ENOXAPARIN 30 MG/0.3 ML SYRINGE SUB-Q (09:21)
[2021-09-29] MEDS: lisinopriL 5 MG TABLET PO (09:21)
[2021-09-29] MEDS: FERROUS SULFATE 324 MG TABLET 648 MG PO (09:21)
[2021-09-29] MEDS: AMIODARONE HCL 200 MG TABLET 400 MG PO (09:22)
[2021-09-29] MEDS: ASPIRIN 325 MG TABLET PO (09:22)
[2021-09-29] MEDS: POTASSIUM CHLORIDE 20 MEQ TABLET 40 MEQ PO (09:22)
[2021-09-29] MEDS: FUROSEMIDE INJ 40 MG/4 ML VIAL IV PUSH (11:27)
--- NOTE | 2021-09-29 12:04 | PM.PNCARD ---
Progress Note: A&P Additional Plan 71-year-old lady as detailed in multiple previous notes with severely depressed LV systolic function. She was taken off of her furosemide couple of weeks ago by her heart failure physician because of significantly elevated creatinine and pre renal azotemia. This has completely corrected but she now came in short of breath and was treated with some IV furosemide yesterday. Creatinine is still at stable at baseline today and she feels much better. We will order the her furosemide at 40 mg daily which was the recommendation of her heart failure physician. She has an appointment with them 10/02/2021 for ongoing medication titration and follow-up. She appears to be comfortable and I believe can be safely discharged today. She also is following with electrophysiology at that institution to consider ICD implantation Harish Gupta MD [facility] Subjective Date/time seen: Date of service: 09/29/21 12:04 Interval history: Follow-up visit in this 71-year-old woman with: Significant valvular heart disease and left ventricular systolic dysfunction admitted with shortness of breath, mild CHF exacerbation after diuretics were discontinued couple of weeks ago because of significant renal failure. She has been diuresed with IV furosemide since admission yesterday and is feels much better. She looks and feels well and is hoping to be discharged this afternoon. She has been referred to the electrophysiology as well as to the [facility] [place] because of the severe cardiomyopathy that she now has. Her heart failure specialist has recommended resuming furosemide at 40 mg daily which I will order today. Exam Const: General: comfortable and no acute distress; No confusion Orientation/consciousness: No confusion HENMT: Head: normal to inspection Mouth: Yes moist mucous membranes Eyes: General: appearance normal, both eyes and all related structures Neck: Neck: supple and no JVD Resp: Effort & Inspection: normal respiratory effort Auscultation: clear to auscultation bilaterally Cardio: Rate: regular rate Rhythm: abnormal rhythm irregularly irregular Heart sounds: no murmurs GI: Auscultation: normal bowel sounds Skin: General skin exam: normal color Wounds: no wounds Neuro: General: No confusion Cognition (Neuro): normal cognition Extrem: General: edema and pedal edema Other: moderate bilateral pre-tibial and pedal edema Psych: Mental Status: mental status grossly normal Objective Data Vital Signs Vital Signs: Vital Signs - 24 hr 09/28/21 13:31 09/28/21 14:01 09/28/21 14:15 Temperature Pulse Rate 84 100 Respiratory Rate 15 16 Blood Pressure 109/68 93/71 L Pulse Oximetry 96 96 95 09/28/21 15:01 09/28/21 16:10 09/28/21 18:00 Temperature 36.3 C L Pulse Rate 92 99 88 Respiratory Rate 12 Blood Pressure 96/67 L Pulse Oximetry 97 09/28/21 20:00 09/28/21 22:00 09/28/21 22:59 Temperature 36.5 C 36.5 C Pulse Rate 77 82 82 Respiratory Rate 18 18 Blood Pressure 90/72 L 110/63 Pulse Oximetry 95 98 09/28/21 23:56 09/29/21 02:00 09/29/21 04:00 Temperature 36.6 C Pulse Rate 78 83 83 Respiratory Rate 18 20 Blood Pressure 98/74 L Pulse Oximetry 98 99 09/29/21 06:00 09/29/21 08:00 09/29/21 10:00 Temperature 36.4 C Pulse Rate 86 86 89 Respiratory Rate 16 Blood Pressure 97/63 L Pulse Oximetry 93 09/29/21 10:50 Temperature Pulse Rate Respiratory Rate Blood Pressure 98/63 L Pulse Oximetry Intake/Output Intake/Output: Intake & Output 09/26/21 09/27/21 09/28/21 09/29/21 23:59 23:59 23:59 23:59 Intake Total 240 400 Output Total 1300 1000 Balance -1060 -600 Meds/Results Medications: Active Medications Generic Name Dose Route Start Last Admin Trade Name Freq PRN Reason Stop Dose Admin Acetaminophen 650 mg 09/29/21 12:01 Acetaminophen 325 Mg Tablet PO Q6H PRN Mild Pain (1-3) or
[2021-09-29] MEDS: ACETAMINOPHEN 325 MG TABLET 650 MG PO (12:30)
--- NOTE | 2021-09-29 14:08 | PM.DS ---
DS: Admitting Diagnosis Discharge Date 09/29/21 Admitting Diagnosis Shortness of breath. DS: Discharge Diagnosis Discharge Diagnosis (1) Atrial fibrillation with rapid ventricular response: Code(s): I48.91 - Unspecified atrial fibrillation Status: Resolved Assessment and Plan: Patient presents with HR 130. EKG showing atrial flutter. Heart rate controlled after receiving IV digoxin in the emergency department. She was continued on her amiodarone for rate control. No longer on anticoagulation given history of GI bleed; she is status post left atrial appendage ligation. (2) Acute exacerbation of congestive heart failure: Code(s): I50.9 - Heart failure, unspecified Status: Acute Assessment and Plan: She presented with SOB. CXR showing cardiomegaly with pulmonary vascular congestion and small left effusion. BNP 31K. She was treated with IV Lasix. She had a negative fluid balance. Given her complex case, Cardiology was consulted and appreciate thier input. Patient became close to euvolemia so she was changed to oral. She was on lasix 80mg BID but this was held recently due azotemia. She states she just received a call from her doctor to resume lasix at the 40mg daily dose which will recommend at discharge. (3) Cardiomyopathy: Code(s): I42.9 - Cardiomyopathy, unspecified Status: Acute Assessment and Plan: Patient is wearing a life vest and has been referred for to electrophysiology at [place] for consideration of defibrillator. Treatment has not been optimized due to issues with hypotension and renal failure. Currently on low-dose lisinopril and beta-jason at home. (4) Hypothyroidism: Code(s): E03.9 - Hypothyroidism, unspecified Status: Suspected Assessment and Plan: Diagnosed in June 2021. TSH still elevated at 15 with FT4 1.09 and TT3 0.9. No significant change in values from Jun despite Synthroid 25mcg daily. Will advance levothyroxine and check TSH as outpatient (5) Hypertension: Qualifiers: Hypertension type: unspecified Qualified Code(s): I10 - Essential (primary) hypertension Code(s): I10 - Essential (primary) hypertension Status: Chronic Assessment and Plan: Blood pressures has been soft at times. Coreg on hold. (6) Tobacco dependence: Code(s): F17.200 - Nicotine dependence, unspecified, uncomplicated Status: Chronic Assessment and Plan: Smoking cessation is imperative and was discussed. (7) Chronic obstructive pulmonary disease: Code(s): J44.9 - Chronic obstructive pulmonary disease, unspecified Status: Acute Assessment and Plan: No acute exacerbation. We continued maintenance inhalers. (8) Renal insufficiency: Code(s): N28.9 - Disorder of kidney and ureter, unspecified Status: Acute Assessment and Plan: She has a normal baseline renal function but Cr 1.2 on admission here. It remained stable with diuresis. Will need close monitorinig since lasix being resumed. She states that her doctor will be ordering a BMP in 1 week - recommended that she call his office if this test is not ordered within this time frame. She voices understanding. DS: Summary Hospital Course Reason for hospitalization: 71yo female with CAD, CHF and pAFib here for shortness of breath. Please see H&P for details. Hospital Course: Please see above for details of hospital course Status at Discharge Cognitive/behavioral status at discharge: stable Time Spent with Patient Time attestation: Total time spent providing and/or coordinating discharge services:35 minutes Time spent: Greater than 30 minutes Exam Narrative: AF 98.4 106/57 78 16 95% ra Gen - NARD sitting at the side of the bed; she has life vest in place Chest - few basilar rhonchi o/w clear CV - RRR S1/S2; Tele showing NSR with PVCs and bundle branch block Abd - Soft, NT/ND,
== END 2021-09-29 15:03 | disposition home or self-care (01) | DRG 308 ==
LOC: ANHED 11:55 → ANHIMU 13:20
PROVIDERS: Physician Assistant; Admitting Provider Family Medicine; Emergency Provider Emergency Medicine; PCP Family Medicine Adolescent Medicine; Visit Provider Internal Medicine
DX: I48.20 Chronic atrial fibrillation, unspecified (principal); I50.23 Acute on chronic systolic (congestive) heart failure; I11.0 Hypertensive heart disease with heart failure; I48.92 Unspecified atrial flutter; I35.0 Nonrheumatic aortic (valve) stenosis; I25.10 Atherosclerotic heart disease of native coronary artery without angina pectoris; I42.9 Cardiomyopathy, unspecified; J44.9 Chronic obstructive pulmonary disease, unspecified; E03.9 Hypothyroidism, unspecified; F32.A Depression, unspecified; E78.5 Hyperlipidemia, unspecified; N28.9 Disorder of kidney and ureter, unspecified; L40.9 Psoriasis, unspecified; F17.210 Nicotine dependence, cigarettes, uncomplicated; I25.2 Old myocardial infarction; Z95.1 Presence of aortocoronary bypass graft; Z95.2 Presence of prosthetic heart valve; Z95.5 Presence of coronary angioplasty implant and graft; Z90.49 Acquired absence of other specified parts of digestive tract; Z79.82 Long term (current) use of aspirin; I44.7 Left bundle-branch block, unspecified
CPT/HCPCS: 36415; 71046; 80048; 80053; 83690; 83735; 83880; 84439; 84443; 84480; 84484; 85025; 85027; 85610; 85730; 93005; 94640; 96374; 96375; 99285; A9270; J1160; J1650; J1940

== ENCOUNTER → 2021-10-14 10:41 | Outpatient (CLI) | payer MEDICARE, SELFPAY ==
--- NOTE | ~2021-10-14 | XR_ITS ---
EXAMINATION: [id number] INDICATION: Right chest wall pain TECHNIQUE: A frontal view of the chest and 3 views of the right ribs were obtained. COMPARISON: None. FINDINGS: Cardiomegaly is noted. Diffuse interstitial pattern is present. There are minimal opacities of the left lung base. A small left pleural effusion is questioned. There is no pneumothorax. Median sternotomy wires and mediastinal surgical clips are seen, likely from prior coronary artery bypass g rafting and cardiac valve repair. No displaced rib fracture is identified. IMPRESSION: 1. No displaced rib fracture identified. 2. Cardiomegaly with mild pulmonary edema. 3. Small left pleural effusion. 4. Minimal left basilar airspace opacity, likely atelectasis. Reviewed, dictated and finalized at location A. 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
== END ==
PROVIDERS: PCP Family Medicine Adolescent Medicine; Visit Provider Family Medicine Adolescent Medicine
DX: R07.89 Other chest pain (principal); I51.7 Cardiomegaly; J90 Pleural effusion, not elsewhere classified
CPT/HCPCS: 71101

== ENCOUNTER → 2022-06-17 15:36 | Outpatient (CLI) | payer MEDICARE, SELFPAY ==
--- NOTE | ~2022-06-17 | US_ITS ---
EXAMINATION: US renal BI DATE: 06/17/2022 15:57 INDICATION: Chronic kidney disease TECHNIQUE: Multiple grayscale and Doppler ultrasound images of the kidneys were obtained. COMPARISON: None. FINDINGS: The right kidney measures 8.1 x 4.1 x 4.1 cm. The left kidney measures 8.5 x 4.5 x 4.1 cm a nd contains a 2.4 cm cyst. The kidneys demonstrate normal parenchymal echogenicity. There is no hydro nephrosis. The bladder is normal. IMPRESSION: 1. Mild atrophy of the kidneys. No hydronephrosis. Reviewed, dictated and finalized at location A.
== END ==
PROVIDERS: PCP Family Medicine Adolescent Medicine; Visit Provider Internal Medicine Nephrology
DX: N18.31 Chronic kidney disease, stage 3a (principal)
CPT/HCPCS: 76775

== ENCOUNTER 2022-09-13 08:09 | Inpatient (IN) | payer MEDICARE, SELFPAY ==
[2022-09-13] VITALS (7 sets, daily range): BP systolic 100–155; BP diastolic 48–73; PULSE 66–74; RESP 16–20; TEMP 36.2–36.4; O2SAT 92–99
--- NOTE | ~2022-09-13 | XR_ITS ---
EXAMINATION: XR hip RT 2V w AP pelvis DATE: 09/13/2022 09:06 INDICATION: Right hip injury and pain. TECHNIQUE: An anteroposterior view of the pelvis and 2 views of right hip were obtained. COMPARISON: Pelvis radiograph 01/23/2006, abdomen radiographs 03/29/2016. FINDINGS: Bone alignment is normal. There is a subcapital fracture of right femoral neck. The distal fracture fragment demonstrates impaction. There is mild osteoarthritis of the hips. There is mild lum bar spondylosis. Surgical clips overlie the pelvis. IMPRESSION: 1. Subcapital fracture of right femoral neck. 2. Mild osteoarthritis of the hips. Reviewed, dictated and finalized at location A. TRONIC ORGAN TECHNICIAN
--- NOTE | ~2022-09-13 | XR_ITS ---
EXAMINATION: XR elbow RT min 3V DATE: 09/13/2022 09:05 INDICATION: Right elbow injury. TECHNIQUE: 4 views of right elbow were obtained. COMPARISON: None. FINDINGS: Bone alignment is normal. No fracture. Joint spaces are well maintained. There are enthesop hytes at medial and lateral humeral epicondyles. No elbow joint effusion. IMPRESSION: 1. No fracture. Reviewed, dictated and finalized at location A. TIC WELDING OPERATOR IMPRESSION: 1. No fracture.
--- NOTE | ~2022-09-13 | XR_ITS ---
EXAMINATION: XR surgery orthopedic INDICATION: Closed reduction percutaneous pinning of the right hip TECHNIQUE: Two intraoperative fluoroscopic images are submitted for review. Total fluoroscopic time w as 369.3 seconds COMPARISON: 09/13/2022 FINDINGS: Fluoroscopic images demonstrate three fixation screws stabilizing a right subcapital femora l neck fracture. Please refer to procedure note for full details. IMPRESSION: 1. Please refer to procedure note for full details. Reviewed, dictated and finalized at location F. NG COREBOARD INSPECTOR
--- NOTE | ~2022-09-13 | XR_ITS ---
XR chest 1V portable DATE: 09/13/2022 09:53 INDICATION: Fall. History of coronary artery disease, COPD, hypertension TECHNIQUE: Portable upright AP chest on 09/13/2022 at 0948 hours COMPARISON: 09/28/2021 AP and lateral chest FINDINGS: Left triple lead transvenous cardiac pacemaker device with leads overlying coronary sinus, right atrium and right ventricle. Status post sternotomy and cardiac valve replacement. Cardiomegaly. Aortic calcification and unfolding. There is pulmonary vascular redistribution which may indicate mild pulmonary venous hypertension. No pulmonary infiltrate or consolidation or pulmonary mass lesion is evident. No pleural effusion or pneumothorax. Osteopenia. IMPRESSION: Status post sternotomy and cardiac valve replacement Triple lead left pacemaker device since 09/28/2021 Cardiomegaly, aortic atherosclerosis Pulmonary vascular redistribution, suggesting mild pulmonary venous hypertension Osteopenia Reviewed, dictated and finalized at location A. LITY ASSISTANT IMPRESSION: Status post sternotomy and cardiac valve replacement Triple lead left pacemaker device since 09/28/2021 Cardiomegaly, aortic atherosclerosis Pulmonary vascular redistribution, suggesting mild pulmonary venous hypertensio n Osteopenia
--- NOTE | 2022-09-13 08:59 | PC.NURSE ---
Patient in radiology
--- NOTE | 2022-09-13 09:04 | ED.FALL ---
HPI - Fall General Chief Complaint: Fall Stated Complaint: glf Time Seen by Provider: 09/13/22 08:19 History of Present Illness HPI Narrative: Patient is a 72-year-old female who presents ER status post fall. She was in her garage and tripped over some moss. She landed on the right side. She suffered injury to her right hip and her right elbow. Has pain with any manipulation of the right hip. She also has pain with flexion extension of her right elbow. No shortening or external rotation of the lower extremity. She did not strike her head or lose consciousness. She is not on any blood thinners. She does have history of heart disease as well as a pacemaker/AICD. Related Data Home Medications Medication Instructions Recorded Confirmed aspirin 325 mg tablet 325 mg PO DAILY 07/09/21 09/13/22 lisinopril 5 mg tablet 5 mg PO DAILY 08/24/21 09/13/22 amiodarone 200 mg tablet (Pacerone) 200 mg PO DAILY 09/28/21 09/13/22 carvedilol 3.125 mg tablet 3.125 mg PO Q12H 09/29/21 09/13/22 spironolactone 25 mg tablet 25 mg PO DAILY 09/29/21 09/13/22 furosemide 40 mg tablet 20 mg PO DAILY 09/13/22 09/13/22 Allergies Allergy/AdvReac Type Severity Reaction Status Date / Time No Known Allergies Allergy Verified 09/13/22 13:47 Review of Systems Review of Systems: All systems reviewed & are unremarkable except as noted in HPI and below Constitutional: Constitutional: Denies chills, Denies fatigue and Denies fever(s) Cardiovascular: Cardiovascular: Denies chest pain and Denies rapid heart rate Musculoskeletal: Musculoskeletal: Reports arthralgias and Denies joint swelling Neurologic: Denies syncope, Denies headache(s), Denies focal weakness and Denies numbness PMF Past Medical History Medical History Aortic stenosis Cardiomyopathy Ejection fraction of 10 to 15%, on LifeVest. Chronic obstructive pulmonary disease Closed right hip fracture Congestive heart failure Contraindication to anticoagulation therapy Secondary to GI bleed. Status post left atrial appendage ligation. Contusion of right elbow Coronary artery disease Status post 2 vessel bypass. Depression GI bleed Gout Hyperlipidemia Hypertension Hypothyroidism Kidney stones Left bundle branch block Nephrolithiasis Paroxysmal atrial fibrillation Psoriasis Tobacco dependence Surgical History Surgical History History of appendectomy History of coronary artery stent placement History of mitral valve replacement with bioprosthetic valve History of tricuspid valve repair History of tubal ligation History of two vessel coronary artery bypass graft Status post ligation of left atrial appendage Family History Family History Father Cancer Mother Acute myocardial infarction Congestive heart failure Son Diabetes mellitus Sibling Chronic obstructive pulmonary disease Social History Social History Social History: The patient lives with her and 1 of their sons in [place]. She has to other sons that live nearby. She smoked up to 3 packs of cigarettes a day at 1 time but she is down to about half a pack a day. She denies alcohol and illicit substance use. The patient still smokes about half a pack a cigarettes a day for 50 years. Prior to COVID-19 the patient was working for the [employer]. She designates her Adiel Rangel as her surrogate decision maker and she wishes to be a full code. Smoking packs per day: 1 Smoking cigarettes per day: 20.0 Years smoked: 50 Smoking pack-years: 50.00 Smoking status: Current every day smoker Tobacco type: cigarettes Second hand tobacco smoke exposure: Yes Alcohol intake: never Substance use: never Lack of Transportation: No Lack of Food: Never True Current Thien
[2022-09-13] MEDS: MORPHINE SULFATE (*CRX) 4 MG/ML INJ IV PUSH (09:05)
--- NOTE | 2022-09-13 09:27 | PC.NURSE ---
Patient refusing to be COVID swabbed. Patient states it's fake I am not getting swabbed for COVID. I would rather go home than be swabbed. EDCecilia Eng notified.
[2022-09-13 10:12] LABS: Basophils Percent Auto 0.4 % (0.2-1.2); Eosinophils Percent Auto 0.3 % (0-4.4); Hematocrit 40.6 % (37.0-47.0); Hemoglobin 13.1 g/dL (12.0-15.0); Immature Granulocyte Absolute 0.04 K/mm3 (0.00-0.031); Immature Granulocyte Percent A 0.4 % (0-0.5); Lymphocytes Absolute Auto 0.82 K/mm3 (0.9-3.2); Lymphocytes Percent Auto 8.8 % (18.3-44.2); Mean Corpuscular HGB Conc 32.3 g/dl (32-36); Mean Corpuscular Volume 93.1 fl (80-100); Mean Platelet Volume 12.3 fl (7.4-10.4); Monocytes Absolute Auto 0.5 K/mm3 (0.1-0.6); Monocytes Percent Auto 5.8 % (2.6-8.5); Neutrophils Absolute Auto 7.9 K/mm3 (1.3-6.7); Neutrophils Percent Auto 84.3 % (45.5-73.1); Platelet Count Result 160 k/mm3 (150-375); Red Blood Count 4.36 M/mm3 (4.2-5.4); Red Cell Distribution Width 13.2 % (11.5-14.5); White Blood Count 9.4 K/mm3 (4.5-10.0)
[2022-09-13 10:18] LABS: Anion Gap 10 mmol/L (8-16); Blood Urea Nitrogen 29 mg/dL (7-17); Calcium 8.9 mg/dL (8.4-10.2); Carbon Dioxide 27 mmol/L (22-30); Chloride 102 mmol/L (98-107); Estimated CRCL calculation 30 ml/min; Estimated Glomerular Filt Rate 34; Glucose 107 mg/dL (65-110); Potassium 3.7 mmol/L (3.4-5.0); Sodium 139 mmol/L (137-145)
[2022-09-13 10:28] LABS: INR 1.1; Partial Thromboplastin Time 30.8 SECONDS (22.3-36.8); Prothrombin Time 14.1 Seconds (11.1-14.7)
[2022-09-13 12:12] LABS: Influenza A QL RT-PCR Negative (Negative); Influenza B QL RT-PCR Negative (Negative); SARS-CoV-2 RNA PCR Negative
--- NOTE | 2022-09-13 13:00 | PM.IMHP ---
H&P: HPI History of Present Illness Date/Time: 09/13/22 13:00 Chief Complaint: Fall. Narrative: This is a 72-year-old female smoker with coronary artery disease status post 2 vessel bypass, paroxysmal atrial fibrillation status post left atrial appendage ligation, mitral valve regurgitation status post mitral valve replacement and tricuspid valve repair in summer 2020, severe cardiomyopathy status post PM/ICD insertion with most recent ejection fraction of 36% (up from 10 to 15%), and COPD who presented to the emergency department earlier today from home for evaluation after a fall. She was in her garage this morning when she accidentally tripped over a stack of water bottles, causing her to fall onto her right side. She had immediate pain in her right elbow and hip and she was brought in for evaluation where she was found to have a subcapital fracture right femoral neck and she is being admitted in this setting. Imaging of the elbow showed no acute findings. She denies head trauma and loss of consciousness in the fall. There was no prodrome prior to the fall, she states it was purely mechanical. Her pain is pretty well controlled at this time after receiving IV morphine. Review of Systems Review of Systems: Twelve systems were reviewed. She has a chronic cough which is unchanged. No fever, chills, or sweats. No cold or flu symptoms. No sick contacts. She denies chest pain. No syncope or presyncope. She has occasional lower extremity edema. Except as documented, all other systems were reviewed and are negative. [facility] Past Medical History Medical History (Updated 09/13/22 @ 21:01 by Sona Gardner PA-C) Aortic stenosis Cardiomyopathy Ejection fraction as low as 10 to 15%, most recent EF was 36%. Status post ICD insertion. Chronic kidney disease Chronic obstructive pulmonary disease Congestive heart failure Contraindication to anticoagulation therapy Secondary to GI bleed. Status post left atrial appendage ligation. Coronary artery disease Status post 2 vessel bypass. Depression GI bleed Gout History of placement of internal cardiac defibrillator Hyperlipidemia Hypertension Hypothyroidism Kidney stones Left bundle branch block Nephrolithiasis Paroxysmal atrial fibrillation Psoriasis Tobacco dependence Surgical History Surgical History History of appendectomy History of coronary artery stent placement History of mitral valve replacement with bioprosthetic valve History of tricuspid valve repair History of tubal ligation History of two vessel coronary artery bypass graft Status post ligation of left atrial appendage Family History Family History Father Cancer Mother Acute myocardial infarction Congestive heart failure Son Diabetes mellitus Sibling Chronic obstructive pulmonary disease Social History Social History Social History: The patient lives with her and 1 of their sons in [place]. She has to other sons that live nearby. She smoked up to 3 packs of cigarettes a day at 1 time but she is down to about half a pack a day. She denies alcohol and illicit substance use. The patient still smokes about half a pack a cigarettes a day for 50 years. Prior to COVID-19 the patient was working for the [employer]. She designates her Adiel Rangel as her surrogate decision maker and she wishes to be a full code. Smoking packs per day: 1 Smoking cigarettes per day: 20.0 Years smoked: 50 Smoking pack-years: 50.00 Smoking status: Current every day smoker Tobacco type: cigarettes Second hand tobacco smoke exposure: Yes Alcohol intake: never Substance use: never Lack of Transportation: No Lack of Food: Never True Current Housing: I Have Housing Concerned About Future Housing: No Difficulty Paying Ga
--- NOTE | 2022-09-13 13:44 | ADMGEN ---
This patient, Monica Rangel, was admitted to [facility] Surg Room 321-02. Patient/family oriented to hospital policies and general routines including ID bracelet, bed and alarms, visiting hours, pain management, procedures, bathroom and other care routines, personal items, smoking policy, room service/diet, and visiting hours. Information on how to activate the Rapid Response Team has been discussed. Patient/Family are encouraged to report perceived risks to care and to ask questions if they do not understand what they are told or what they should do.
--- NOTE | 2022-09-13 15:05 | PM.CNOR ---
Assessment and Plan Assessment and plan (1) Closed right hip fracture: Qualifiers: Encounter type: initial encounter Qualified Code(s): S72.001A - Fracture of unspecified part of neck of right femur, initial encounter for closed fracture Code(s): S72.001A - Fracture of unspecified part of neck of right femur, initial encounter for closed fracture Status: Acute Assessment and Plan: History, exam and radiographs reviewed with the patient. Radiographs the right hip reveal a subcapital femoral neck fracture. The fracture type and injury as well as radiographs discussed with the patient and family. Operative and nonoperative treatment options reviewed. The patients questions were answered. The patient desires operative treatment. Discussed CRPP Right Hip Risks of surgery including but not limited to neurovascular damage, wound complications, blood clot, pulmonary embolus, stroke, myocardial infarction, anesthetic risks up to and including were reviewed. Continued pain and possible dysfunction were explained. No guarantees were offered. The patient understands and wishes to proceed. Plan: CRPP Right Hip by Dr. Turner pending cardiology and medicine clearance NPO at midnight. Bedrest Ice hip Pain control (2) Contusion of right elbow: Qualifiers: Encounter type: initial encounter Qualified Code(s): S50.01XA - Contusion of right elbow, initial encounter Code(s): S50.01XA - Contusion of right elbow, initial encounter Status: Acute Assessment and Plan: Right elbow pain status post fall. Radiographs without evidence of acute fracture. Gentle range of motion exercises as tolerated. Patient may be fit with sling for comfort if desired while in bed. Monitor neurovascular status. Ice. We will continue to monitor. (3) Tobacco dependence: Code(s): F17.200 - Nicotine dependence, unspecified, uncomplicated Status: Acute (4) Contraindication to anticoagulation therapy: Code(s): Z53.09 - Procedure and treatment not carried out because of other contraindication Status: Acute (5) CHF (congestive heart failure): Qualifiers: Heart failure chronicity: acute on chronic Heart failure type: systolic Qualified Code(s): I50.23 - Acute on chronic systolic (congestive) heart failure Code(s): I50.9 - Heart failure, unspecified Status: Acute Assessment and Plan: Will require cardiology clearance. (6) Cardiomyopathy: Code(s): I42.9 - Cardiomyopathy, unspecified Status: Acute (7) Paroxysmal atrial fibrillation: Code(s): I48.0 - Paroxysmal atrial fibrillation Status: Acute Plan Reviewed case with attending physician and consulted surgeon, Dr. Turner. Agrees with current plan as outlined above. No further recommendations. History of Present Illness HPI Consult date: 09/13/22 Chief complaint: Femoral Neck Fracture Narrative: 72-year-old female admitted admitted to [facility] after a fall at home in her garage. She reports landing on the right hip and right elbow. Radiographs the emergency room revealed a subcapital femoral neck fracture of the right hip and no fractures evident of the right elbow. She denies loss of consciousness or hitting her head. The patient was admitted to the hospital service for further evaluation. She has a history of heart disease as well as a pacemaker / AICD. Review of Systems Constitutional: Constitutional: Reports no additional constitutional complaints, Denies chills, Denies fatigue, Denies fever(s), Denies headache(s) and Denies weakness Eyes: Eyes: Denies change in vision ENT: Reports Normal hearing present and Denies headache(s) Cardiovascular: Cardiovascular: Denies chest pain and Denies dyspnea Respiratory: Respiratory: Denies cough, Denies dyspnea and Denies wheezing Gastrointestinal: Gastrointestinal: Denies constipation, Denies diarrh
--- NOTE | 2022-09-13 15:47 | PM.CNCAR ---
Assessment and Plan Assessment and plan (1) Preoperative cardiovascular examination: Code(s): Z01.810 - Encounter for preprocedural cardiovascular examination Status: Acute Assessment and Plan: patient has a history of ischemic cardiomyopathy previously reported severe LV systolic dysfunction with significant improvement status post biventricular ICD most recently EF 35-40% by echocardiogram in the office 06/2022. Patient reports no anginal symptoms and no limitations activity. She states her energy has been quite stable denies significant change in weight, no change in lower extremity edema, orthopnea or PND. She is well compensated at present. Patient is at moderate risk overall for adverse cardiovascular complications. No further invasive workup indicated or anticipated to alter management. DVT prophylaxis. Telemetry postoperatively. Monitor volume status is patient certainly is prone to decompensated heart failure given LV dysfunction. (2) Cardiomyopathy: Qualifiers: Cardiomyopathy type: ischemic Qualified Code(s): I25.5 - Ischemic cardiomyopathy Code(s): I42.9 - Cardiomyopathy, unspecified Status: Acute Assessment and Plan: EF improved to 40% by echocardiogram June 2022 as noted above. She is well compensated. Continue home cardiovascular medical regimen. Continue GIANCARLO-inhibitor, carvedilol, spironolactone and Lasix. (3) Closed right hip fracture: Qualifiers: Encounter type: initial encounter Qualified Code(s): S72.001A - Fracture of unspecified part of neck of right femur, initial encounter for closed fracture Code(s): S72.001A - Fracture of unspecified part of neck of right femur, initial encounter for closed fracture Status: Acute Assessment and Plan: Per Orthopedic surgery. Still awaiting Orthopedic consultation and precise surgical plans with the patient mentions being told she would require a nail procedure. (4) CHF (congestive heart failure): Qualifiers: Heart failure chronicity: acute on chronic Heart failure type: systolic Qualified Code(s): I50.23 - Acute on chronic systolic (congestive) heart failure Code(s): I50.9 - Heart failure, unspecified Status: Acute Assessment and Plan: compensated new Heart Association class 2 symptoms ischemic cardiomyopathy heart failure with reduced ejection fraction. (5) CAD (coronary artery disease): Qualifiers: Coronary Disease-Associated Artery/Lesion type: elem artery [place] vs. transplanted heart: elem heart Associated angina: without angina Qualified Code(s): I25.10 - Atherosclerotic heart disease of elem coronary artery without angina pectoris Code(s): I25.10 - Atherosclerotic heart disease of elem coronary artery without angina pectoris Status: Chronic Assessment and Plan: History remote stents and CABG April 2021 with BARR to LAD, SVG to ramus intermedius branch with concomitant mitral valve replacement with bioprosthetic 31 mm Gilbert due to severe MR. (6) Paroxysmal atrial fibrillation: Code(s): I48.0 - Paroxysmal atrial fibrillation Status: Acute Assessment and Plan: Stable at present. Check 12 lead EKG. (7) History of mitral valve replacement with bioprosthetic valve: Code(s): Z95.3 - Presence of xenogenic heart valve Status: Acute Assessment and Plan: prophylactic antibiotics prior to surgical procedure. (8) Contraindication to anticoagulation therapy: Code(s): Z53.09 - Procedure and treatment not carried out because of other contraindication Status: Acute Assessment and Plan: History of surgical left atrial appendage ligation and history of GI bleed in the past with anticoagulation. History of Present Illness History of Present Illness Consult date/time: Date of service:09/13/22 15:47 Requesting physician: Sona Gardner PA-C Cons
--- NOTE | 2022-09-13 15:53 | ECG_ITS ---
Measurements Intervals [place] Rate: 72 P: 89 CA: 155 QRS: 55 QRSD: 125 T: 125 QT: 449 QTc: 494 Interpretive Statements ATRIAL SENSE- ELECTRONIC VENTRICULAR PACEMAKER BASELINE ARTIFACT- I, II, III, AVR, AVL, AVF NO FURTHER INTERPRETATION IS POSSIBLE ATYPICAL ECG COMPARED TO ECG 09/28/2021 08:17:39 ATRIAL SENSE- ELECTRONIC VENTRICULAR PACEMAKER NOW PRESENT Electronically Signed On 09-13-2022 16:57:24 TEACHER OF THE EMOTIONALLY DISTURBED by Isac Dey D.O.
[2022-09-13] MEDS: HYDROcodone/acetaminophen (*CRX) 5-325 MG TABLET 1 TAB PO (16:21)
[2022-09-13] MEDS: carvediloL 3.125 MG TABLET PO (22:47)
[2022-09-14 03:45] VITALS: BP 119/40; PULSE 68; RESP 18; TEMP 36.1; O2SAT 91
[2022-09-14 06:36] LABS: Hematocrit 38.6 % (37.0-47.0); Hemoglobin 12.5 g/dL (12.0-15.0); Mean Corpuscular HGB Conc 32.4 g/dl (32-36); Mean Corpuscular Hemoglobin 30.3 pg (26-34); Mean Corpuscular Volume 93.5 fl (80-100); Mean Platelet Volume 12.8 fl (7.4-10.4); Platelet Count Result 146 k/mm3 (150-375); Red Blood Count 4.13 M/mm3 (4.2-5.4); Red Cell Distribution Width 13.2 % (11.5-14.5); White Blood Count 7.5 K/mm3 (4.5-10.0)
[2022-09-14 06:43] LABS: Alanine Aminotransferase 14 U/L (6-35); Albumin Level 3.7 g/dL (3.5-5.1); Alkaline Phosphatase 118 U/L (38-126); Anion Gap 11 mmol/L (8-16); Aspartate Amino Transferase 21 U/L (14-36); Bilirubin,Total 0.8 mg/dL (0.2-1.3); Blood Urea Nitrogen 22 mg/dL (7-17); Calcium 8.8 mg/dL (8.4-10.2); Carbon Dioxide 23 mmol/L (22-30); Chloride 104 mmol/L (98-107); Estimated CRCL calculation 32 ml/min; Estimated Glomerular Filt Rate 37; Glucose 107 mg/dL (65-110); Magnesium 2.3 mg/dL (1.6-2.3); Sodium 138 mmol/L (137-145)
--- NOTE | 2022-09-14 07:19 | WPDHPUPDATE1 ---
History and Physical Update Update Date/Time: 09/14/22 07:19 History and Physical has been reviewed, including an updated exam of the patient. There are NO changes in the patient's condition. Risks, benefits, and alternatives have been discussed and questions answered. Patient agrees to proceed with procedure.
--- NOTE | 2022-09-14 07:36 | WPDANESEPPF ---
Anes - Initial Pre Proc Eval Procedure: Operation Date: 09/14/22 14:30 Proposed Procedures p Closed Reduction Percutaneous Pinning Right Hip - Ludwin Turner MD <Chin Croft MD - Last Filed: 09/15/22 14:52> Date/Time: 09/14/22 07:36 <Chin Croft MD - Last Filed: 09/15/22 14:52> Surgeon: Arnulfo Drummond MD <Chin Croft MD - Last Filed: 09/15/22 14:52> Pre Op Diagnosis: Femoral Neck Fracture <Chin Croft MD - Last Filed: 09/15/22 14:52> Patient Data Age: 72 Gender: F Height: 1.57 m Weight: 80.2 kg <Chin Croft MD - Last Filed: 09/15/22 14:52> Last Vital Signs Temp 36.1 C L 09/14/22 03:45 Pulse 68 09/14/22 03:45 Resp 18 09/14/22 03:45 BP 119/40 L 09/14/22 03:45 Pulse Ox 91 09/14/22 03:45 O2 Del Method Room Air 09/13/22 20:00 <Chin Croft MD - Last Filed: 09/15/22 14:52> Allergies Allergy/AdvReac Type Severity Reaction Status Date / Time No Known Allergies Allergy Verified 09/15/22 11:01 <Chin Croft MD - Last Filed: 09/15/22 14:52> Home Medications Medication Instructions Recorded Confirmed Type aspirin 325 mg tablet 325 mg PO DAILY 07/09/21 09/13/22 History lisinopril 5 mg tablet 5 mg PO DAILY 08/24/21 09/13/22 History amiodarone 200 mg tablet (Pacerone) 200 mg PO DAILY 09/28/21 09/13/22 History carvedilol 3.125 mg tablet 3.125 mg PO Q12H 09/29/21 09/13/22 History furosemide 40 mg tablet 20 mg PO DAILY 09/13/22 09/13/22 History <Chin Croft MD - Last Filed: 09/15/22 14:52> Laboratory Tests 09/13/22 09/13/22 09/13/22 10:02 10:02 10:02 WBC 9.4 K/mm3 K/mm3 (4.5-10.0) RBC 4.36 M/mm3 M/mm3 (4.2-5.4) Hgb 13.1 g/dL g/dL (12.0-15.0) Hct 40.6 % % (37.0-47.0) MCV 93.1 fl fl (80-100) MCH 30.0 pg pg (26-34) MCHC 32.3 g/dl g/dl (32-36) RDW 13.2 % % (11.5-14.5) Plt Count 160 k/mm3 k/mm3 (150-375) MPV 12.3 fl H fl (7.4-10.4) Immature Gran % (Auto) 0.4 % % (0-0.5) Neut % (Auto) 84.3 % H % (45.5-73.1) Lymph % (Auto) 8.8 % L % (18.3-44.2) [place] % (Auto) 5.8 % % (2.6-8.5) Eos % (Auto) 0.3 % % (0-4.4) Baso % (Auto) 0.4 % % (0.2-1.2) Lymph # (Auto) 0.82 K/mm3 L K/mm3 (0.9-3.2) [place] # (Auto) 0.5 K/mm3 K/mm3 (0.1-0.6) Eos # (Auto) 0.0 K/mm3 K/mm3 (0-0.3) Baso # (Auto) 0.0 K/mm3 K/mm3 (0.0-0.1) Abs Immat Gran (auto) 0.04 K/mm3 H K/mm3 (0.00-0.031) Absolute Neuts (auto) 7.9 K/mm3 H K/mm3 (1.3-6.7) Absolute Nucleated RBC 0.0 K/mm3 K/mm3 (0.0-0.012) Nucleated RBC % 0.0 % % (0.0-0.2) PT 14.1 Seconds Seconds (11.1-14.7) INR 1.1 APTT 30.8 SECONDS SECONDS (22.3-36.8) Sodium 139 mmol/L mmol/L (137-145) Potassium 3.7 mmol/L mmol/L (3.4-5.0) Chloride 102 mmol/L mmol/L (98-107) Carbon Dioxide 27 mmol/L mmol/L (22-30) Anion Gap 10 mmol/L mmol/L (8-16) BUN 29 mg/dL H mg/dL (7-17) Creatinine 1.50 mg/dL H mg/dL (0.7-1.0) Estim Creat Clear Calc 30 ml/min ml/min Estimated GFR 34 L (59 - ) Glucose 107 mg/dL mg/dL (65-110) Calcium 8.9 mg/dL mg/dL (8.4-10.2) Magnesium Total Bilirubin AST ALT Alkaline Phosphatase Total Protein Albumin Influenza A (RT-PCR) Influenza B (RT-PCR) SARS-CoV-2 RNA (RT-PCR) 09/13/22 09/14/22 09/14/22 11:27 05:48 05:48 WBC 7.5 K/mm3 K/mm3 (4.5-10.0) RBC 4.13 M/mm3 L M/mm3 (4.2-5.4) Hgb 12.5 g/dL g/dL (12.0-15.0) Hct 38.6 % % (37.0-47.0) MCV 93.5 fl fl (80-100)
[2022-09-14 09:05] VITALS: BP 133/42; PULSE 74; RESP 16; O2SAT 92
[2022-09-14 10:00] VITALS: PULSE 74
[2022-09-14] MEDS: carvediloL 3.125 MG TABLET PO ×2 (10:00→20:59)
[2022-09-14] MEDS: lisinopriL 5 MG TABLET PO (10:00)
--- NOTE | 2022-09-14 11:39 | PM.IMPN ---
Progress Note: A&P Assessment and Plan (1) Subcapital fracture of right hip: Code(s): S72.011A - Unspecified intracapsular fracture of right femur, initial encounter for closed fracture Status: Acute Assessment and Plan: Orthopedic surgery Planning surgery today (2) Contusion of right elbow: Qualifiers: Encounter type: initial encounter Qualified Code(s): S50.01XA - Contusion of right elbow, initial encounter Code(s): S50.01XA - Contusion of right elbow, initial encounter Status: Acute Assessment and Plan: currently in sling. (3) Fall from ground level: Code(s): W18.30XA - Fall on same level, unspecified, initial encounter Status: Acute (4) Cardiomyopathy: Qualifiers: Cardiomyopathy type: ischemic Qualified Code(s): I25.5 - Ischemic cardiomyopathy Code(s): I42.9 - Cardiomyopathy, unspecified Status: Acute Assessment and Plan: Chronic and stable (5) Chronic obstructive pulmonary disease: Code(s): J44.9 - Chronic obstructive pulmonary disease, unspecified Status: Acute (6) Chronic kidney disease: Code(s): N18.9 - Chronic kidney disease, unspecified Status: Acute Assessment and Plan: stable Subjective Date/time seen: 09/14/22 11:39 No complaints. Pain controlled. Exam Const: Other: Well-developed, nontoxic-appearing female sitting up in bed. Weight: 78 kilograms. BMI: 31.5. HENMT: Other: Normocephalic, atraumatic. Nares patent bilaterally. Oral mucosa moist. Eyes: Other: Pupils are reactive. Extraocular motions intact. Sclerae anicteric. Neck: Other: Supple. No midline vertebral tenderness. No JVD or obvious bruits. Resp: Other: Respirations are nonlabored. Lung sounds are diminished with faint expiratory wheezes. Cardio: Other: Regular rate rhythm with S1-S2. Soft systolic murmur noted. GI: Other: Abdomen is soft, nontender, and nondistended with positive bowel sounds. Skin: Other: Warm and dry. Neuro: Other: Alert. Cranial nerves 2-12 are grossly intact. No gross focal deficits to casual conversation. Extrem: Other: No cyanosis, clubbing, or significant edema. Peripheral pulses intact. Pain with active and passive range of motion of the right elbow. No noted deformity. Contusion noted. She is tender to palpation over the right anterior lateral hip. Psych: Other: Pleasant cooperative with appropriate mood and affect. Objective Data Vital Signs Vital Signs: Vital Signs - 24 hr 09/13/22 12:49 09/13/22 14:00 09/13/22 15:08 Temperature 97.5 F L Pulse Rate 67 69 Respiratory Rate 18 20 Blood Pressure 155/59 H 110/73 Pulse Oximetry 97 93 Oxygen Delivery Room Air 09/13/22 15:36 09/13/22 19:57 09/13/22 22:47 Temperature 97.2 F L Pulse Rate 74 72 72 Respiratory Rate 18 Blood Pressure 100/48 L Pulse Oximetry 95 92 Oxygen Delivery Room Air 09/13/22 20:00 09/14/22 03:45 09/14/22 10:00 Temperature 96.9 F L Pulse Rate 68 74 Respiratory Rate 18 Blood Pressure 119/40 L Pulse Oximetry 91 Oxygen Delivery Room Air Intake/Output Intake/Output: Intake & Output 09/11/22 09/12/22 09/13/22 09/14/22 23:59 23:59 23:59 23:59 Intake Total 700 50 Balance 700 50 Meds/Results Medications: Active Medications Generic Name Dose Route Start Last Admin Trade Name Freq PRN Reason Stop Dose Admin Acetaminophen 650 mg 09/13/22 10:31 Acetaminophen 325 Mg Tablet PO Q4H PRN Mild Pain (1-3) or Fever Hydrocodone Bitart/Acetaminophen 1 tab 09/13/22 10:31 09/13/22 16:21 Hydrocodone/Acetaminophen (*Crx) 5-325 Mg Tablet PO 1 tab Q4H PRN Administration Pain Rated 4-6 Amiodarone HCl 200 mg 09/14/22 21:00 Amiodarone Hcl 200 Mg Tablet PO HS MADELINE Carvedilol 3.125 mg 09/13/22 21:00 09/14/22 10:00 Carvedilol 3.125 Mg Tablet PO 3.125 mg Q12H MADELINE Administrati
--- NOTE | 2022-09-14 17:39 | PM.PNORT ---
Progress Note: A&P Assessment and Plan (1) Femoral neck fracture: Code(s): S72.009A - Fracture of unspecified part of neck of unspecified femur, initial encounter for closed fracture Status: Acute Assessment and Plan: DISCUSSED NONOPERATIVE AND OPERATIVE TREATMENT OPTIONS WITH THE PATIENT. THE PATIENT'S QUESTIONS WERE ANSWERED. THE PATIENT DESIRES OPERATIVE TREATMENT. DISCUSSED ____RIGHT FEMORAL NECK FRACTURE PERCUTANEOUS PINNING . RISKS OF SURGERY INCLUDING BUT NOT LIMITED TO NEUROVASCULAR DAMAGE, WOUND COMPLICATIONS, BLOOD CLOT, PULMONARY EMBOLUS, STROKE, FL, ANESTHETIC RISKS UP TO AND INCLUDING WERE REVIEWED. CONTINUED PAIN AND POSSIBLE DYSFUNCTION WERE EXPLAINED. NO GUARANTEES WERE OFFERED. THE PATIENT UNDERSTANDS AND WISHES TO PROCEED. Subjective Subjective Date/Time Seen: 09/14/22 17:39 PATIENT IS DOING WELL TODAY. SHE IS COMFORTABLE. SHE IS AWAITING RIGHT HIP CLOSED REDUCTION AND PERCUTANEOUS PINNING RIGHT FEMORAL NECK FRACTURE. DO TO UNDERTERMINED TIME SLOTS IN THE OPERATING ROOM AND THE PATIENT BEING FAIRLY COMFORTABLE WE WILL CANCEL THE SURGERY AND ALLOW THE PATIENT TO EAT. WE WILL PROCEED WITH SURGEY IN THE MORNING OR AFTERNOON. Exam Extrem: Other: VSS AFEBRILE RIGHT HIP WITH MINIMAL DISCOMFORT WITH GENTLE PROM, OTHERWISE NV INTACT., CALF SOFT NON TENDER, NEG HOMANS SIGN Objective Data Vital Signs Vital Signs: Vital Signs - 24 hr 09/13/22 19:57 09/13/22 22:47 09/13/22 20:00 Temperature 36.2 C L Pulse Rate 72 72 Respiratory Rate 18 Blood Pressure 100/48 L Pulse Oximetry 92 Oxygen Delivery Room Air 09/14/22 03:45 09/14/22 10:00 09/14/22 09:05 Temperature 36.1 C L Pulse Rate 68 74 Respiratory Rate 18 Blood Pressure 119/40 L Pulse Oximetry 91 Oxygen Delivery Room Air 09/14/22 09:05 Temperature Pulse Rate 74 Respiratory Rate 16 Blood Pressure 133/42 L Pulse Oximetry 92 Oxygen Delivery Intake/Output Intake/Output: Intake & Output 09/11/22 09/12/22 09/13/22 09/14/22 23:59 23:59 23:59 23:59 Intake Total 700 50 Balance 700 50 Meds/Results Medications: Active Medications Generic Name Dose Route Start Last Admin Trade Name Freq PRN Reason Stop Dose Admin Acetaminophen 650 mg 09/13/22 10:31 Acetaminophen 325 Mg Tablet PO Q4H PRN Mild Pain (1-3) or Fever Hydrocodone Bitart/Acetaminophen 1 tab 09/13/22 10:31 09/13/22 16:21 Hydrocodone/Acetaminophen (*Crx) 5-325 Mg Tablet PO 1 tab Q4H PRN Administration Pain Rated 4-6 Amiodarone HCl 200 mg 09/14/22 21:00 Amiodarone Hcl 200 Mg Tablet PO HS MADELINE Carvedilol 3.125 mg 09/13/22 21:00 09/14/22 10:00 Carvedilol 3.125 Mg Tablet PO 3.125 mg Q12H MADELINE Administration Fentanyl Citrate 25 mcg 09/14/22 07:36 Fentanyl Citrate Inj (*Crx) 100 Mcg/2 Ml Vial IV PUSH Q2M PRN Pain Furosemide 20 mg 09/14/22 09:00 09/14/22 17:29 Furosemide 20 Mg Tablet PO Not Given DAILY MADELINE Lactated Ringer's 1,000 mls @ 30 mls/hr 09/14/22 07:40 Lr - Lactated Ringers Iv IV CONT .Q24H MADELINE Lactated Ringer's 1,000 mls @ 30 mls/hr 09/14/22 07:40 Lr - Lactated Ringers Iv IV CONT .Q24H MADELINE Lisinopril 5 mg 09/14/22 09:00 09/14/22 10:00 Lisinopril 5 Mg Tablet PO 5 mg DAILY MADELINE Administration Morphine Sulfate 4 mg 09/13/22 10:31 Morphine Sulfate (*Crx) 4 Mg/Ml Inj IV PUSH Q2H PRN Pain Rated 7-10 Ondansetron HCl 4 mg 09/13/22 10:31 Ondansetron Inj 4 Mg/2 Ml Vial IV PUSH Q4H PRN Nausea Ondansetron HCl 4 mg 09/14/22 07:36 Ondansetron Inj 4 Mg/2 Ml Vial IV PUSH ONCE PRN Nausea Radiology Results: ITS Impressions Elbow X-Ray 09/13/22 09:08 IMPRESSION: 1. No fracture. Hip/Pelvis X-Ray 09/13/22 09:10 IMPRESSION: 1. Subcapital fracture of right femoral neck. 2. Mild osteoarthritis of the hips. Chest X-Ray 09/13/22 09:5
[2022-09-14 20:59] VITALS: PULSE 72
[2022-09-14] MEDS: AMIODARONE HCL 200 MG TABLET PO (20:59)
[2022-09-14 22:13] VITALS: BP 117/47; PULSE 68; RESP 20; TEMP 36.4; O2SAT 93
[2022-09-15] VITALS (19 sets, daily range): BP systolic 96–132; BP diastolic 37–73; PULSE 55–64; RESP 11–20; TEMP 35.6–36.8; O2SAT 91–99
[2022-09-15] MEDS: HYDROcodone/acetaminophen (*CRX) 5-325 MG TABLET 1 TAB PO (04:00)
[2022-09-15] MEDS: FUROSEMIDE 20 MG TABLET PO (09:50)
[2022-09-15] MEDS: lisinopriL 5 MG TABLET PO (09:50)
[2022-09-15] MEDS: carvediloL 3.125 MG TABLET PO ×2 (09:50→23:04)
--- NOTE | 2022-09-15 10:46 | PM.IMPN ---
Progress Note: A&P Assessment and Plan (1) Subcapital fracture of right hip: Code(s): S72.011A - Unspecified intracapsular fracture of right femur, initial encounter for closed fracture Status: Acute Assessment and Plan: Orthopedic surgery Planning surgery today (2) Contusion of right elbow: Qualifiers: Encounter type: initial encounter Qualified Code(s): S50.01XA - Contusion of right elbow, initial encounter Code(s): S50.01XA - Contusion of right elbow, initial encounter Status: Acute Assessment and Plan: currently in sling. (3) Fall from ground level: Code(s): W18.30XA - Fall on same level, unspecified, initial encounter Status: Acute (4) Cardiomyopathy: Qualifiers: Cardiomyopathy type: ischemic Qualified Code(s): I25.5 - Ischemic cardiomyopathy Code(s): I42.9 - Cardiomyopathy, unspecified Status: Acute Assessment and Plan: Chronic and stable (5) Chronic obstructive pulmonary disease: Code(s): J44.9 - Chronic obstructive pulmonary disease, unspecified Status: Acute (6) Chronic kidney disease: Code(s): N18.9 - Chronic kidney disease, unspecified Status: Acute Assessment and Plan: stable Subjective Date/time seen: 09/15/22 10:46 pain control Exam Const: Other: Well-developed, nontoxic-appearing female sitting up in bed. Weight: 78 kilograms. BMI: 31.5. HENMT: Other: Normocephalic, atraumatic. Nares patent bilaterally. Oral mucosa moist. Eyes: Other: Pupils are reactive. Extraocular motions intact. Sclerae anicteric. Neck: Other: Supple. No midline vertebral tenderness. No JVD or obvious bruits. Resp: Other: Respirations are nonlabored. Lung sounds are diminished with faint expiratory wheezes. Cardio: Other: Regular rate rhythm with S1-S2. Soft systolic murmur noted. GI: Other: Abdomen is soft, nontender, and nondistended with positive bowel sounds. Skin: Other: Warm and dry. Neuro: Other: Alert. Cranial nerves 2-12 are grossly intact. No gross focal deficits to casual conversation. Extrem: Other: No cyanosis, clubbing, or significant edema. Peripheral pulses intact. Pain with active and passive range of motion of the right elbow. No noted deformity. Contusion noted. She is tender to palpation over the right anterior lateral hip. Psych: Other: Pleasant cooperative with appropriate mood and affect. Objective Data Vital Signs Vital Signs: Vital Signs - 24 hr 09/14/22 20:59 09/14/22 20:59 09/14/22 20:00 Temperature Pulse Rate 72 72 Respiratory Rate Blood Pressure Pulse Oximetry Oxygen Delivery Room Air 09/14/22 22:13 09/15/22 06:13 09/15/22 09:50 Temperature 97.6 F 98.2 F Pulse Rate 68 62 64 Respiratory Rate 20 20 Blood Pressure 117/47 L 101/42 L Pulse Oximetry 93 91 Oxygen Delivery 09/15/22 09:00 Temperature Pulse Rate Respiratory Rate Blood Pressure Pulse Oximetry Oxygen Delivery Room Air Intake/Output Intake/Output: Intake & Output 09/12/22 09/13/22 09/14/22 09/15/22 23:59 23:59 23:59 23:59 Intake Total 700 50 0 Output Total 500 Balance 700 50 -500 Meds/Results Medications: Active Medications Generic Name Dose Route Start Last Admin Trade Name Freq PRN Reason Stop Dose Admin Acetaminophen 650 mg 09/13/22 10:31 Acetaminophen 325 Mg Tablet PO Q4H PRN Mild Pain (1-3) or Fever Hydrocodone Bitart/Acetaminophen 1 tab 09/13/22 10:31 09/15/22 04:00 Hydrocodone/Acetaminophen (*Crx) 5-325 Mg Tablet PO 1 tab Q4H PRN Administration Pain Rated 4-6 Amiodarone HCl 200 mg 09/14/22 21:00 09/14/22 20:59 Amiodarone Hcl 200 Mg Tablet PO 200 mg HS MADELINE Administration Carvedilol 3.125 mg 09/13/22 21:00 09/15/22 09:50 Carvedilol 3.125 Mg Tablet PO 3.125 mg Q12H MADELINE Administration Fentanyl Citrate 25 mcg 09/14/22 07:36 F
[2022-09-15] MEDS: LACTATED RINGERS 1,000 ML 30 ML IV CONT (11:02)
[2022-09-15] MEDS: TRANEXAMIC ACID 1,000MG/ISO100 1,000 MG/100 ML BAG 200 MG IVPB (11:31)
[2022-09-15] MEDS: ceFAZolin 2 GM/D5W 50 ML 2 GM/50 ML BAG IVPB ×2 (12:05→23:05)
--- NOTE | 2022-09-15 13:35 | W.PM.PROC2 ---
Procedure Note - Detailed Date of Procedure 09/15/22 Pre-op Diagnosis RIGHT Femoral Neck Fracture Post-op Diagnosis Same Procedure Performed PERCUTANEOUS PINNING RIGHT FEMORAL NECK FRACTURE Surgeon Ludwin Turner MD Anesthesia General Description of Procedure THE PATIENT WAS TAKEN TO THE OPERATING ROOM AND PLACED UNDER GENERAL ANESTHESIA. THE RIGHT HIP WAS IMAGED AND USING TRACTION AND ROTATION THE RIGHT FEMORAL NECK FRACTURE WAS REDUCED TO NEAR ANATOMIC POSITION. THE PATIENT WAS PLACED ON A FRACTURE TABLE. THE RIGHT LOWER EXTREMITY WAS PREPPED AND DRAPED IN THE STERIL FASHION FROM THE KNEE TO THE ILIAC CREST. THE INCISION WAS MADE ON THE LATERAL HIP JUST DISTAL TO THE GREATER TROCHANTER DOWN TO THE BONE. BLEEDERS WERE CAUTERIZED. 3 GUIDE PINS WERE PLACED THROUGH THE FEMORAL NECK AND PASSED THE FRACTURE SITE AND IN TO THE SUBCHONDRAL BONE OF THE FEMORAL HEAD. THREE 6.8 CANNULATED SCREWS WERE PLACED OVER THE GUIDE PINS AND THESE WERE SHOWN TO BE IN GOOD POSITION PER FLUOROSCOPY ON BOTH THE AP AND LATERAL VIEWS. ALL SCREWS HAD EXCELLENT BITES. THE WOUND WAS WASHED WELL. THE DEEP FASCIAL LAYER WAS APPROXIMATED WITH #1 VICRYL SUTURE, THE SUBCUTANEOUS LAYER WITH 2-0 VICRYL AND THE SKIN WAS APPROXIMATED WITH 2-0 QUIL AND DERMABOND. A STERILE DRESSING WAS PLACED. THE PATIENT WAS EXTUBATED AND SENT TO RECOVERY ROOM Estimated Blood Loss -50.0 Urine Output 500 Drains No Complications No immediate complications Condition Stable Disposition PACU
--- NOTE | 2022-09-15 15:23 | PCOTNOTE ---
Pt. is not yet on floor. Per nursing, pt has strict bed rest orders for remainder of day. Following.
[2022-09-15] MEDS: AMIODARONE HCL 200 MG TABLET PO (23:04)
[2022-09-16] VITALS (15 sets, daily range): BP systolic 94–131; BP diastolic 48–59; PULSE 54–66; RESP 18–20; TEMP 35.8–36.6; O2SAT 91–96
[2022-09-16] MEDS: HYDROcodone/acetaminophen (*CRX) 7.5-325 MG TABLET 1 TAB PO (05:13)
[2022-09-16] MEDS: ceFAZolin 2 GM/D5W 50 ML 2 GM/50 ML BAG IVPB ×2 (05:37→12:12)
[2022-09-16 07:50] LABS: Basophils Percent Auto 0.4 % (0.2-1.2); Hematocrit 38.3 % (37.0-47.0); Hemoglobin 12.5 g/dL (12.0-15.0); Immature Granulocyte Absolute 0.04 K/mm3 (0.00-0.031); Immature Granulocyte Percent A 0.5 % (0-0.5); Lymphocytes Absolute Auto 0.56 K/mm3 (0.9-3.2); Lymphocytes Percent Auto 6.7 % (18.3-44.2); Mean Corpuscular HGB Conc 32.6 g/dl (32-36); Mean Corpuscular Hemoglobin 29.9 pg (26-34); Mean Corpuscular Volume 91.6 fl (80-100); Monocytes Absolute Auto 0.6 K/mm3 (0.1-0.6); Monocytes Percent Auto 7.3 % (2.6-8.5); Neutrophils Absolute Auto 7.2 K/mm3 (1.3-6.7); Neutrophils Percent Auto 85.1 % (45.5-73.1); Platelet Count Result 142 k/mm3 (150-375); Red Blood Count 4.18 M/mm3 (4.2-5.4); White Blood Count 8.4 K/mm3 (4.5-10.0)
[2022-09-16 07:52] LABS: Anion Gap 12 mmol/L (8-16); Blood Urea Nitrogen 28 mg/dL (7-17); Calcium 9.2 mg/dL (8.4-10.2); Carbon Dioxide 26 mmol/L (22-30); Chloride 99 mmol/L (98-107); Estimated CRCL calculation 33 ml/min; Estimated Glomerular Filt Rate 37; Glucose 131 mg/dL (65-110); Potassium 4.4 mmol/L (3.4-5.0); Sodium 137 mmol/L (137-145)
[2022-09-16 08:13] LABS: Glucose Point of Care 119 mg/dl (65-105)
[2022-09-16] MEDS: CELECOXIB 200 MG CAPSULE PO (09:50)
[2022-09-16] MEDS: ASPIRIN 325 MG TABLET PO (09:50)
[2022-09-16] MEDS: FUROSEMIDE 20 MG TABLET PO (09:51)
[2022-09-16] MEDS: SENNA/DOCUSATE SODIUM TABLET 2 TAB PO ×2 (09:51→17:33)
[2022-09-16] MEDS: polyethylene glycoL 3350 17 GM POWD.PACK PO (09:51)
[2022-09-16] MEDS: lisinopriL 5 MG TABLET PO (09:52)
[2022-09-16] MEDS: carvediloL 3.125 MG TABLET PO (11:32)
--- NOTE | 2022-09-16 11:43 | PM.IMPN ---
Progress Note: A&P Assessment and Plan (1) Subcapital fracture of right hip: Code(s): S72.011A - Unspecified intracapsular fracture of right femur, initial encounter for closed fracture Status: Acute Assessment and Plan: status post surgery. doing well, pain controlled DVT prophylaxis w eliquis (2) Contusion of right elbow: Qualifiers: Encounter type: initial encounter Qualified Code(s): S50.01XA - Contusion of right elbow, initial encounter Code(s): S50.01XA - Contusion of right elbow, initial encounter Status: Acute Assessment and Plan: currently in sling. (3) Fall from ground level: Code(s): W18.30XA - Fall on same level, unspecified, initial encounter Status: Acute (4) Cardiomyopathy: Qualifiers: Cardiomyopathy type: ischemic Qualified Code(s): I25.5 - Ischemic cardiomyopathy Code(s): I42.9 - Cardiomyopathy, unspecified Status: Acute Assessment and Plan: Chronic and stable (5) Chronic obstructive pulmonary disease: Code(s): J44.9 - Chronic obstructive pulmonary disease, unspecified Status: Acute (6) Chronic kidney disease: Code(s): N18.9 - Chronic kidney disease, unspecified Status: Acute Assessment and Plan: stable Subjective Date/time seen: 09/16/22 11:43 no new complaints Exam Const: Other: Well-developed, nontoxic-appearing female sitting up in bed. Weight: 78 kilograms. BMI: 31.5. HENMT: Other: Normocephalic, atraumatic. Nares patent bilaterally. Oral mucosa moist. Eyes: Other: Pupils are reactive. Extraocular motions intact. Sclerae anicteric. Neck: Other: Supple. No midline vertebral tenderness. No JVD or obvious bruits. Resp: Other: Respirations are nonlabored. Lung sounds are diminished with faint expiratory wheezes. Cardio: Other: Regular rate rhythm with S1-S2. Soft systolic murmur noted. GI: Other: Abdomen is soft, nontender, and nondistended with positive bowel sounds. Skin: Other: Warm and dry. Neuro: Other: Alert. Cranial nerves 2-12 are grossly intact. No gross focal deficits to casual conversation. Extrem: Other: No cyanosis, clubbing, or significant edema. Peripheral pulses intact. Pain with active and passive range of motion of the right elbow. No noted deformity. Contusion noted. She is tender to palpation over the right anterior lateral hip. Psych: Other: Pleasant cooperative with appropriate mood and affect. Objective Data Vital Signs Vital Signs: Vital Signs - 24 hr 09/15/22 13:22 09/15/22 13:37 09/15/22 13:50 Temperature 97.2 F L Pulse Rate 60 55 L 55 L Respiratory Rate 11 L 14 15 Blood Pressure 123/51 L 111/42 L 115/46 L Pulse Oximetry 98 99 99 Oxygen Delivery Simple Face Mask Simple Face Mask Simple Face Mask Oxygen Flow Rate 10 10 6 09/15/22 14:05 09/15/22 14:20 09/15/22 14:35 Temperature Pulse Rate 56 L 56 L 56 L Respiratory Rate 16 14 16 Blood Pressure 113/46 L 115/45 L 100/54 L Pulse Oximetry 96 94 95 Oxygen Delivery Nasal Cannula Nasal Cannula Nasal Cannula Oxygen Flow Rate 2 2 2 09/15/22 14:50 09/15/22 14:59 09/15/22 15:15 Temperature 96.1 F L Pulse Rate 57 L 57 L 57 L Respiratory Rate 18 18 18 Blood Pressure 108/73 96/41 L 108/37 L Pulse Oximetry 93 94 93 Oxygen Delivery Nasal Cannula Nasal Cannula Oxygen Flow Rate 2 2 09/15/22 15:30 09/15/22 16:00 09/15/22 17:00 Temperature 96.4 F L 96.5 F L 96.4 F L Pulse Rate 56 L 58 L 61 Respiratory Rate 18 16 18 Blood Pressure 105/45 L 114/54 L 113/69 Pulse Oximetry 94 95 94 Oxygen Delivery Oxygen Flow Rate 09/15/22 16:00 09/15/22 20:46 09/15/22 21:15 Temperature 96.8 F L 96.8 F L Pulse Rate 59 L 62 62 Respiratory Rate 20 20 Blood Pressure 132/57 L 132/57 L Pulse Oximetry 93 93 Oxygen Delivery Oxygen Flow Rate 09/15/22 23:51 09/15/22 20:00 09/16/22 04:18 Temperature 96.4 F L 96.4 F L Puls
[2022-09-16] MEDS: ALBUTEROL SULFATE (*SP) AEROSOL 1 PUFF 2 PUFF INHALATION (11:44)
[2022-09-16] MEDS: AMIODARONE HCL 200 MG TABLET PO (21:04)
[2022-09-17] VITALS (12 sets, daily range): BP systolic 94–109; BP diastolic 40–45; PULSE 52–67; RESP 16–20; TEMP 35.9–36.6; O2SAT 94–99
[2022-09-17] MEDS: ASPIRIN 325 MG TABLET PO (09:28)
[2022-09-17] MEDS: CELECOXIB 200 MG CAPSULE PO (09:28)
[2022-09-17] MEDS: FUROSEMIDE 20 MG TABLET PO (09:28)
[2022-09-17] MEDS: lisinopriL 5 MG TABLET PO (09:29)
[2022-09-17] MEDS: carvediloL 3.125 MG TABLET PO (09:29)
--- NOTE | 2022-09-17 11:25 | PM.IMPN ---
Progress Note: A&P Assessment and Plan (1) Subcapital fracture of right hip: Code(s): S72.011A - Unspecified intracapsular fracture of right femur, initial encounter for closed fracture Status: Acute Assessment and Plan: status post surgery. doing well, pain controlled DVT prophylaxis aspirin, per Ortho (2) Contusion of right elbow: Qualifiers: Encounter type: initial encounter Qualified Code(s): S50.01XA - Contusion of right elbow, initial encounter Code(s): S50.01XA - Contusion of right elbow, initial encounter Status: Acute Assessment and Plan: currently in sling. (3) Fall from ground level: Code(s): W18.30XA - Fall on same level, unspecified, initial encounter Status: Acute (4) Cardiomyopathy: Qualifiers: Cardiomyopathy type: ischemic Qualified Code(s): I25.5 - Ischemic cardiomyopathy Code(s): I42.9 - Cardiomyopathy, unspecified Status: Acute Assessment and Plan: Chronic and stable (5) Chronic obstructive pulmonary disease: Code(s): J44.9 - Chronic obstructive pulmonary disease, unspecified Status: Acute (6) Chronic kidney disease: Code(s): N18.9 - Chronic kidney disease, unspecified Status: Acute Assessment and Plan: stable Subjective Date/time seen: 09/17/22 11:25 Doing okay, no new complaints Exam Const: Other: Well-developed, nontoxic-appearing female sitting up in bed. Weight: 78 kilograms. BMI: 31.5. HENMT: Other: Normocephalic, atraumatic. Nares patent bilaterally. Oral mucosa moist. Eyes: Other: Pupils are reactive. Extraocular motions intact. Sclerae anicteric. Neck: Other: Supple. No midline vertebral tenderness. No JVD or obvious bruits. Resp: Other: Respirations are nonlabored. Lung sounds are diminished with faint expiratory wheezes. Cardio: Other: Regular rate rhythm with S1-S2. Soft systolic murmur noted. GI: Other: Abdomen is soft, nontender, and nondistended with positive bowel sounds. Skin: Other: Warm and dry. Neuro: Other: Alert. Cranial nerves 2-12 are grossly intact. No gross focal deficits to casual conversation. Extrem: Other: No cyanosis, clubbing, or significant edema. Peripheral pulses intact. Pain with active and passive range of motion of the right elbow. No noted deformity. Contusion noted. She is tender to palpation over the right anterior lateral hip. Psych: Other: Pleasant cooperative with appropriate mood and affect. Objective Data Vital Signs Vital Signs: Vital Signs - 24 hr 09/16/22 11:32 09/16/22 11:44 09/16/22 12:00 Temperature Pulse Rate 60 62 Respiratory Rate Blood Pressure Pulse Oximetry 94 Oxygen Delivery Nasal Cannula Oxygen Flow Rate 2 09/16/22 12:46 09/16/22 15:42 09/16/22 16:00 Temperature 97.8 F Pulse Rate 54 L 54 L Respiratory Rate 18 Blood Pressure 96/48 L 94/50 L Pulse Oximetry 96 Oxygen Delivery Oxygen Flow Rate 09/16/22 16:46 09/16/22 21:07 09/16/22 21:37 Temperature 97.6 F 97.7 F Pulse Rate 54 L 60 60 Respiratory Rate 18 20 Blood Pressure 96/54 L 107/59 L Pulse Oximetry 94 91 Oxygen Delivery Oxygen Flow Rate 09/17/22 00:00 09/17/22 04:00 09/17/22 05:00 Temperature 97.9 F Pulse Rate 59 L 52 L 53 L Respiratory Rate 20 Blood Pressure 109/45 L Pulse Oximetry 98 Oxygen Delivery Oxygen Flow Rate 09/17/22 09:29 09/17/22 08:00 Temperature Pulse Rate 53 L Respiratory Rate Blood Pressure Pulse Oximetry 98 Oxygen Delivery Nasal Cannula Oxygen Flow Rate 1 Intake/Output Intake/Output: Intake & Output 09/14/22 09/15/22 09/16/22 09/17/22 23:59 23:59 23:59 23:59 Intake Total 50 690 1730 220 Output Total 1000 600 500 Balance 50 -310 1130 -280 Meds/Results Medications: Active Medications Generic Name Dose Route Start Last Admin Trade Name Freq PRN Reason Stop Dose A
--- NOTE | 2022-09-17 13:49 | PM.PNORT ---
Progress Note: A&P Assessment and Plan (1) Femoral neck fracture: Code(s): S72.009A - Fracture of unspecified part of neck of unspecified femur, initial encounter for closed fracture Status: Acute Assessment and Plan: IPOD 2 DOING WELL FROM ORTHO [facility]. SHE WILL BE OK TO DC HOME WHEN OK WITH MEDICINE. SHE WILL NEED HOME PT AND HOME NURSING. SHE SHOULD REMAIN ON ANTICOAGULATION WITH ASPIRIN FOR 4 WEEKS TOTAL. SHE WILL F/U WITH ORTHO IN 8 WEEKS. SHE SHOULD REMAIN NON WEIGHT BEARING FOR 8 WEEKS. WILL SIGN OFF FOR NOW. PLEASE CALL FOR QUESTIONS. Subjective Subjective Date/Time Seen: 09/17/22 13:49 POD 2 DOING WELL. MINIMAL PAIN. NO CALF PAIN Exam Extrem: Other: VSS AFEBRILE DRESSING DRY NV INTACT CALF SOFT NON TENDER NEG HOMANS SIGN Objective Data Vital Signs Vital Signs: Vital Signs - 24 hr 09/16/22 15:42 09/16/22 16:00 09/16/22 16:46 Temperature 36.4 C Pulse Rate 54 L 54 L Respiratory Rate 18 Blood Pressure 94/50 L 96/54 L Pulse Oximetry 94 Oxygen Delivery Oxygen Flow Rate 09/16/22 21:07 09/16/22 21:37 09/17/22 00:00 Temperature 36.5 C Pulse Rate 60 60 59 L Respiratory Rate 20 Blood Pressure 107/59 L Pulse Oximetry 91 Oxygen Delivery Oxygen Flow Rate 09/17/22 04:00 09/17/22 05:00 09/17/22 09:29 Temperature 36.6 C Pulse Rate 52 L 53 L Respiratory Rate 20 Blood Pressure 109/45 L Pulse Oximetry 98 98 Oxygen Delivery Nasal Cannula Oxygen Flow Rate 1 09/17/22 08:00 09/17/22 12:00 Temperature Pulse Rate 53 L 64 Respiratory Rate Blood Pressure Pulse Oximetry Oxygen Delivery Oxygen Flow Rate Intake/Output Intake/Output: Intake & Output 09/14/22 09/15/22 09/16/22 09/17/22 23:59 23:59 23:59 23:59 Intake Total 50 690 1730 342 Output Total 1000 600 500 Balance 50 -310 1130 -158 Meds/Results Medications: Active Medications Generic Name Dose Route Start Last Admin Trade Name Freq PRN Reason Stop Dose Admin Acetaminophen 650 mg 09/15/22 15:01 Acetaminophen 325 Mg Tablet PO Q6H PRN Mild Pain (1-3) or Fever Hydrocodone Bitart/Acetaminophen 1 tab 09/15/22 15:01 09/16/22 05:13 Hydrocodone/Acetaminophen (*Crx) 7.5-325 Mg Tablet PO 1 tab Q3H PRN Administration Pain Rated 4-6 Hydrocodone Bitart/Acetaminophen 2 tab 09/15/22 15:01 Hydrocodone/Acetaminophen (*Crx) 7.5-325 Mg Tablet PO Q6H PRN Pain Rated 7-10 Albuterol 2 puff 09/16/22 10:11 09/16/22 11:44 Albuterol Sulfate (*Sp) Aerosol 1 Puff INHALATION 2 puff Q4H PRN Administration Shortness Of Breath Amiodarone HCl 200 mg 09/14/22 21:00 09/16/22 21:04 Amiodarone Hcl 200 Mg Tablet PO 200 mg HS MADELINE Administration Aspirin 325 mg 09/16/22 09:00 09/17/22 09:28 Aspirin 325 Mg Tablet PO 325 mg DAILY MADELINE Administration Carvedilol 3.125 mg 09/13/22 21:00 09/17/22 09:29 Carvedilol 3.125 Mg Tablet PO 3.125 mg Q12H MADELINE Administration Celecoxib 200 mg 09/16/22 08:00 09/17/22 09:28 Celecoxib 200 Mg Capsule PO 200 mg DAILY@0800 MADELINE Administration Furosemide 20 mg 09/14/22 09:00 09/17/22 09:28 Furosemide 20 Mg Tablet PO 20 mg DAILY MADELINE Administration Hydroxyzine Pamoate 50 mg 09/15/22 15:01 Hydroxyzine Pamoate 25 Mg Capsule PO Q4H PRN Itching Lisinopril 5 mg 09/14/22 09:00 09/17/22 09:29 Lisinopril 5 Mg Tablet PO 5 mg DAILY AMDELINE Administration Naloxone HCl 0.1 mg 09/15/22 15:01 Naloxone Hcl 0.4 Mg/Ml Vial IV PUSH Q2M PRN Opiate Reversal Ondansetron HCl 4 mg 09/15/22 15:01 Ondansetron Inj 4 Mg/2 Ml Vial IV PUSH Q4H PRN Nausea And Vomiting Polyethylene Glycol 17 gm 09/16/22 09:00 09/17/22 09:29 Polyethylene Glycol 3350 17 Gm Powd.Pack PO Not Given QAM MADELINE Senna/Docusate Sodium 2 tab 09/15/22 17:00 09/17/22 09:29 Senna/Docusate Sodium Tablet PO Not Given BID MADELINE
[2022-09-17] MEDS: AMIODARONE HCL 200 MG TABLET PO (21:29)
[2022-09-18] VITALS: PULSE 54
[2022-09-18 04:00] VITALS: PULSE 52
[2022-09-18 06:00] VITALS: BP 125/51; PULSE 54; RESP 18; TEMP 36.5; O2SAT 97
[2022-09-18 08:00] VITALS: PULSE 65
[2022-09-18 09:39] VITALS: O2SAT 97
[2022-09-18] MEDS: CELECOXIB 200 MG CAPSULE PO (09:39)
[2022-09-18] MEDS: carvediloL 3.125 MG TABLET PO (09:39)
[2022-09-18] MEDS: lisinopriL 5 MG TABLET PO (09:39)
[2022-09-18] MEDS: FUROSEMIDE 20 MG TABLET PO (09:39)
[2022-09-18] MEDS: ASPIRIN 325 MG TABLET PO (09:39)
--- NOTE | 2022-09-18 10:53 | PM.DS ---
DS: Admitting Diagnosis Discharge Date September 18, 2022 Admitting Diagnosis hip fracture DS: Discharge Diagnosis Discharge Diagnosis (1) Subcapital fracture of right hip: Code(s): S72.011A - Unspecified intracapsular fracture of right femur, initial encounter for closed fracture Status: Acute Assessment and Plan: status post surgery. doing well, pain controlled DVT prophylaxis aspirin, per Ortho (2) Contusion of right elbow: Qualifiers: Encounter type: initial encounter Qualified Code(s): S50.01XA - Contusion of right elbow, initial encounter Code(s): S50.01XA - Contusion of right elbow, initial encounter Status: Acute Assessment and Plan: currently in sling. (3) Fall from ground level: Code(s): W18.30XA - Fall on same level, unspecified, initial encounter Status: Acute (4) Cardiomyopathy: Qualifiers: Cardiomyopathy type: ischemic Qualified Code(s): I25.5 - Ischemic cardiomyopathy Code(s): I42.9 - Cardiomyopathy, unspecified Status: Acute Assessment and Plan: Chronic and stable (5) Chronic obstructive pulmonary disease: Code(s): J44.9 - Chronic obstructive pulmonary disease, unspecified Status: Acute (6) Chronic kidney disease: Code(s): N18.9 - Chronic kidney disease, unspecified Status: Acute Assessment and Plan: stable DS: Summary Hospital Course Hospital Course: patient is 72-year-old female who came in with hip fracture. She underwent a pending by surgery. She is doing well and can be discharged to acute rehab. Time Spent with Patient Time attestation: Total time spent providing and/or coordinating discharge services: Exam Const: Other: Well-developed, nontoxic-appearing female sitting up in bed. Weight: 78 kilograms. BMI: 31.5. HENMT: Other: Normocephalic, atraumatic. Nares patent bilaterally. Oral mucosa moist. Eyes: Other: Pupils are reactive. Extraocular motions intact. Sclerae anicteric. Neck: Other: Supple. No midline vertebral tenderness. No JVD or obvious bruits. Resp: Other: Respirations are nonlabored. Lung sounds are diminished with faint expiratory wheezes. Cardio: Other: Regular rate rhythm with S1-S2. Soft systolic murmur noted. GI: Other: Abdomen is soft, nontender, and nondistended with positive bowel sounds. Skin: Other: Warm and dry. Neuro: Other: Alert. Cranial nerves 2-12 are grossly intact. No gross focal deficits to casual conversation. Extrem: Other: No cyanosis, clubbing, or significant edema. Peripheral pulses intact. Pain with active and passive range of motion of the right elbow. No noted deformity. Contusion noted. She is tender to palpation over the right anterior lateral hip. Psych: Other: Pleasant cooperative with appropriate mood and affect. Discharge Plan Discharge Attending physician on discharge: Harish Leo Consulting providers: Agustin Andrade ; Ludwin Turner Discharging Clinician: Harish Leo Patient Disposition: SNF Activity: no preference Diet: as tolerated Stand Alone Forms: General Discharge Information Follow-up/Referrals: Ludwin Turner MD [Physician] - Other (Follow up appointment in 8 weeks. ) Discharge Medications: Continued lisinopril 5 mg tablet 5 mg PO DAILY aspirin 325 mg Tablet 325 mg PO DAILY amiodarone [Pacerone] 200 mg tablet 200 mg PO DAILY carvedilol 3.125 mg Tablet 3.125 mg PO Q12H Hold Instructions: HOLD - Resume when okay with your doctor furosemide 40 mg tablet 20 mg PO DAILY Date of admission: 09/14/22 11:31 Primary Care Provider: Moe Reyes Admitting Provider: Arnulfo Drummond Attending physician on admission: Arnulfo Drummond Condition: Stable
[2022-09-18 12:00] VITALS: PULSE 60
== END 2022-09-18 13:46 | DRG 481 ==
LOC: ANHED 08:19 → ANH3MEDSUR 12:23
PROVIDERS: Orthopaedic Surgery; Physician Assistant; Admitting Provider Family Medicine; Emergency Provider Emergency Medicine; PCP Family Medicine Adolescent Medicine; Visit Provider Chiropractor
PROC: 0QS634Z Reposition Right Upper Femur with Internal Fixation Device, Percutaneous Approach (ICD-10-PCS; principal; 2022-09-15 15:00)
DX: S72.011A Unspecified intracapsular fracture of right femur, initial encounter for closed fracture (principal); I13.0 Hypertensive heart and chronic kidney disease with heart failure and stage 1 through stage 4 chronic kidney disease, or unspecified chronic kidney disease; I42.9 Cardiomyopathy, unspecified; I50.22 Chronic systolic (congestive) heart failure; I25.10 Atherosclerotic heart disease of native coronary artery without angina pectoris; N18.9 Chronic kidney disease, unspecified; J44.9 Chronic obstructive pulmonary disease, unspecified; I48.0 Paroxysmal atrial fibrillation; S50.01XA Contusion of right elbow, initial encounter; F17.210 Nicotine dependence, cigarettes, uncomplicated; Z82.49 Family history of ischemic heart disease and other diseases of the circulatory system; Z82.5 Family history of asthma and other chronic lower respiratory diseases; Z20.822 Contact with and (suspected) exposure to COVID-19; Z79.82 Long term (current) use of aspirin; Z79.899 Other long term (current) drug therapy; Z95.1 Presence of aortocoronary bypass graft; Z95.4 Presence of other heart-valve replacement; Z95.810 Presence of automatic (implantable) cardiac defibrillator; Z95.3 Presence of xenogenic heart valve; W01.0XXA Fall on same level from slipping, tripping and stumbling without subsequent striking against object, initial encounter; Y92.008 Other place in unspecified non-institutional (private) residence as the place of occurrence of the external cause
CPT/HCPCS: 36415; 71045; 73080; 73502; 80048; 80053; 82948; 83735; 85025; 85027; 85610; 85730; 87636; 93005; 94640; 96374; 97110; 97116; 97161; 97165; 97530; 97535; 99199; 99285; A4565; A9270; G0378; J0690; J1100; J2270; J2405; J2704; J3010; J7120

== ENCOUNTER 2022-11-18 09:19 | Outpatient (CLI) | payer MEDICARE, SELFPAY ==
[2022-11-18 10:12] LABS: Hematocrit 37.3 % (37.0-47.0); Mean Corpuscular HGB Conc 32.2 g/dl (32-36); Mean Corpuscular Hemoglobin 29.1 pg (26-34); Mean Corpuscular Volume 90.3 fl (80-100); Platelet Count Result 197 k/mm3 (150-375); Red Blood Count 4.13 M/mm3 (4.2-5.4); Red Cell Distribution Width 14.7 % (11.5-14.5); White Blood Count 5.3 K/mm3 (4.5-10.0)
[2022-11-18 10:36] LABS: Chloride 101 mmol/L (98-107)
[2022-11-18 11:03] LABS: Albumin Level 4.2 g/dL (3.5-5.1); Anion Gap 2 mmol/L (8-16); Blood Urea Nitrogen 32 mg/dL (7-17); Carbon Dioxide 29 mmol/L (22-30); Estimated Glomerular Filt Rate 30; Glucose 92 mg/dL (65-110); Phosphorus 3.8 mg/dL (2.5-4.5); Potassium 4.3 mmol/L (3.4-5.0); Sodium 132 mmol/L (137-145)
[2022-11-18 11:20] LABS: Creatinine Urine 31.1 mg/dL; Total Protein Urine Random 11 mg/dL; Ur Ttl Prot Creatinine Ratio 0.35 mg/mg (0-0.20)
== END 2022-11-18 09:20 | disposition home or self-care (01) ==
LOC: ANHLAB 09:21
PROVIDERS: PCP Family Medicine Adolescent Medicine; Visit Provider Internal Medicine Nephrology
DX: I12.9 Hypertensive chronic kidney disease with stage 1 through stage 4 chronic kidney disease, or unspecified chronic kidney disease (principal); N18.32 Chronic kidney disease, stage 3b
CPT/HCPCS: 36415; 80069; 82570; 83970; 84156; 85027

== ENCOUNTER 2023-03-17 13:37 | Outpatient (CLI) | payer MEDICARE, SELFPAY ==
[2023-03-17 14:34] LABS: Anion Gap 5 mmol/L (8-16); Blood Urea Nitrogen 54 mg/dL (7-17); Calcium 8.6 mg/dL (8.4-10.2); Carbon Dioxide 29 mmol/L (22-30); Chloride 100 mmol/L (98-107); Estimated Glomerular Filt Rate 17; Glucose 127 mg/dL (65-110); Potassium 3.9 mmol/L (3.4-5.0); Sodium 134 mmol/L (137-145)
== END 2023-03-17 13:38 | disposition home or self-care (01) ==
PROVIDERS: PCP Family Medicine Adolescent Medicine; Visit Provider Nurse Practitioner Family
DX: E03.9 Hypothyroidism, unspecified (principal); I12.9 Hypertensive chronic kidney disease with stage 1 through stage 4 chronic kidney disease, or unspecified chronic kidney disease; N18.9 Chronic kidney disease, unspecified
CPT/HCPCS: 36415; 80048; 84443

== ENCOUNTER 2023-08-03 09:03 | Outpatient (CLI) | payer MEDICARE, SELFPAY | END 2023-08-03 09:04 | disposition home or self-care (01) | PROVIDERS: PCP Family Medicine Adolescent Medicine; Referring Provider Internal Medicine Nephrology; Visit Provider Family Medicine Adolescent Medicine | DX: E03.9 Hypothyroidism, unspecified (principal); E21.1 Secondary hyperparathyroidism, not elsewhere classified; N18.4 Chronic kidney disease, stage 4 (severe) | CPT/HCPCS: 36415; 84443 ==

== ENCOUNTER 2023-08-09 08:09 | Outpatient (CLI) | payer MEDICARE, SELFPAY ==
[2023-08-09 08:56] LABS: Hematocrit 39.5 % (37.0-47.0); Hemoglobin 12.7 g/dL (12.0-15.0); Mean Corpuscular HGB Conc 32.2 g/dl (32-36); Mean Corpuscular Hemoglobin 30.1 pg (26-34); Mean Corpuscular Volume 93.6 fl (80-100); Mean Platelet Volume 12.4 fl (7.4-10.4); Platelet Count Result 157 k/mm3 (150-375); Red Blood Count 4.22 M/mm3 (4.2-5.4)
[2023-08-09 09:07] LABS: Creatinine Urine 26.8 mg/dL; Total Protein Urine Random 19 mg/dL; Ur Ttl Prot Creatinine Ratio 0.71 mg/mg (0-0.20)
[2023-08-09 09:09] LABS: Anion Gap 3 mmol/L (8-16); Blood Urea Nitrogen 27 mg/dL (7-17); Calcium 8.9 mg/dL (8.4-10.2); Carbon Dioxide 30 mmol/L (22-30); Chloride 104 mmol/L (98-107); Estimated Glomerular Filt Rate 29; Glucose 106 mg/dL (65-110); Phosphorus 3.6 mg/dL (2.5-4.5); Potassium 3.5 mmol/L (3.4-5.0); Sodium 137 mmol/L (137-145)
[2023-08-09 09:25] LABS: Parathyroid Intact 140.7 pg/mL (7.5-53.5)
== END 2023-08-09 08:10 | disposition home or self-care (01) ==
LOC: ANHLAB 08:10
PROVIDERS: PCP Family Medicine Adolescent Medicine; Visit Provider Internal Medicine Nephrology
DX: N18.4 Chronic kidney disease, stage 4 (severe) (principal); E21.1 Secondary hyperparathyroidism, not elsewhere classified
CPT/HCPCS: 36415; 80069; 82570; 83970; 84156; 85027

== ENCOUNTER 2024-02-06 11:48 | Outpatient (CLI) | payer MEDICARE, SELFPAY ==
[2024-02-06 12:32] LABS: Anion Gap 4 mmol/L (4-12); Blood Urea Nitrogen 50 mg/dL (7-17); Calcium 9.3 mg/dL (8.4-10.2); Carbon Dioxide 32 mmol/L (22-30); Chloride 102 mmol/L (98-107); Estimated Glomerular Filt Rate 17; Glucose 104 mg/dL (65-110); Potassium 4.4 mmol/L (3.4-5.0); Sodium 138 mmol/L (137-145)
== END 2024-02-06 11:49 | disposition home or self-care (01) ==
LOC: ANHLAB 11:50
PROVIDERS: PCP Family Medicine Adolescent Medicine; Visit Provider Internal Medicine Nephrology
DX: N18.4 Chronic kidney disease, stage 4 (severe) (principal); E21.1 Secondary hyperparathyroidism, not elsewhere classified
CPT/HCPCS: 36415; 80048

== ENCOUNTER 2024-03-03 10:58 | Emergency (ER) | payer MEDICARE, SELFPAY ==
--- NOTE | ~2024-03-03 | CT_ITS ---
EXAMINATION: CT foot RT wo con DATE: 03/03/2024 11:56 INDICATION: Right foot pain. TECHNIQUE: Computed tomography (CT) of the right foot was performed without intravenous contrast. Aut omated exposure control and iterative reconstruction technique were employed. The dose-length product was 427.79 mGy-cm. COMPARISON: Right foot radiographs 03/03/2024 FINDINGS: There is moderate hallux valgus. There is heterotopic ossification distal to medial malleol us from old injury. There is mild osteoarthritis of first metatarsophalangeal joint and some of the i nterphalangeal joints. There is diffuse subcutaneous edema. IMPRESSION: 1. Mild polyarticular osteoarthritis 2. Moderate hallux valgus. Reviewed, dictated and finalized at location A.
--- NOTE | ~2024-03-03 | XR_ITS ---
EXAMINATION: XR foot RT min 3V DATE: 03/03/2024 11:16 INDICATION: Right foot pain and swelling. TECHNIQUE: 4 views of right foot were obtained. COMPARISON: Right foot radiographs 01/10/2021 FINDINGS: There is moderate hallux valgus. No fracture. There is mild osteoarthritis of first metatar sophalangeal joint and some of the interphalangeal joints. There are enthesophytes at the posterior a nd plantar aspects of calcaneal tuberosity. IMPRESSION: 1. Mild polyarticular osteoarthritis. 2. Moderate hallux valgus. Reviewed, dictated and finalized at location A.
[2024-03-03 11:02] VITALS: BP 103/47; PULSE 73; RESP 18; TEMP 36.6; O2SAT 100
--- NOTE | 2024-03-03 11:07 | ED.GENADULT ---
HPI - General Adult General Chief complaint: Extremity Injury, Lower Stated complaint: foot pain Time Seen by Provider: 03/03/24 11:00 History of Present Illness HPI narrative: 74 old female presenting to the emergency department for evaluation right foot pain. Patient states the pain started yesterday and patient states that the pain is at the ball of her right foot. Patient denies any specific incident of injury. Patient does have lower extremity swelling which he states is similar to her baseline. Patient does have a rash on the dorsum of her right foot which she states is psoriasis and this also unchanged. Related Data Home Medications Medication Instructions Recorded Confirmed aspirin 325 mg tablet 325 mg PO DAILY 07/09/21 02/17/24 amiodarone 200 mg tablet (Pacerone) 200 mg PO DAILY 09/28/21 02/17/24 carvedilol 3.125 mg tablet 3.125 mg PO Q12H 09/29/21 02/17/24 furosemide 80 mg tablet 80 mg PO BID 02/06/24 02/17/24 sacubitril 24 mg-valsartan 26 mg 1 tablet PO BID 02/06/24 02/17/24 tablet (Entresto) Allergies Allergy/AdvReac Type Severity Reaction Status Date / Time No Known Allergies Allergy Verified 02/06/24 10:50 Review of Systems Review of Systems: All systems reviewed & are unremarkable except as noted in HPI and below PMFSH Past Medical History Medical History Acute exacerbation of chronic obstructive airways disease Acute non-ST elevation myocardial infarction (NSTEMI) Aortic stenosis Atrial fibrillation with rapid ventricular response CAD (coronary artery disease) Cardiomyopathy Ejection fraction as low as 10 to 15%, most recent EF was 36%. Status post ICD insertion. Chronic obstructive pulmonary disease Congestive heart failure Contraindication to anticoagulation therapy Secondary to GI bleed. Status post left atrial appendage ligation. Coronary artery disease Status post 2 vessel bypass. Depression GI bleed Gout History of placement of internal cardiac defibrillator Hyperlipidemia Kidney stones LBBB (left bundle branch block) Left bundle branch block Nephrolithiasis Nocturnal hypoxia Paroxysmal atrial fibrillation Psoriasis Subcapital fracture of right hip Tobacco dependence Surgical History Surgical History H/O two vessel coronary artery bypass graft (04/2021) History of appendectomy History of coronary artery stent placement History of hip surgery (08/2022) ORIF for fracture History of mitral valve replacement with bioprosthetic valve History of tricuspid valve repair History of tubal ligation History of two vessel coronary artery bypass graft Status post ligation of left atrial appendage Family History Family History Father Cancer Mother Acute myocardial infarction Congestive heart failure Son Diabetes mellitus Sibling Chronic obstructive pulmonary disease Social History Social History Social History: The patient lives with her and 1 of their sons in [place]. She has to other sons that live nearby. She smoked up to 3 packs of cigarettes a day at 1 time but she is down to about half a pack a day. She denies alcohol and illicit substance use. The patient still smokes about half a pack a cigarettes a day for 50 years. Prior to COVID-19 the patient was working for the [employer]. She designates her Adiel Rangel as her surrogate decision maker and she wishes to be a full code. Smoking packs per day: 1 Smoking cigarettes per day: 20.0 Years smoked: 50 Smoking pack-years: 50.00 Smoking status: Current every day smoker Tobacco type: cigarettes Second hand tobacco smoke exposure: Yes Alcohol intake: never Substance use: never Do You Feel Safe in your Home?: Yes Lack of Transportation: No Lack of Food: Never True
== END 2024-03-03 12:54 | disposition home or self-care (01) ==
PROVIDERS: Emergency Provider Emergency Medicine; PCP Family Medicine Adolescent Medicine
DX: M79.671 Pain in right foot (principal); I35.0 Nonrheumatic aortic (valve) stenosis; I25.2 Old myocardial infarction; I48.0 Paroxysmal atrial fibrillation; I25.10 Atherosclerotic heart disease of native coronary artery without angina pectoris; I42.9 Cardiomyopathy, unspecified; I48.91 Unspecified atrial fibrillation; I50.9 Heart failure, unspecified; J44.9 Chronic obstructive pulmonary disease, unspecified; E78.5 Hyperlipidemia, unspecified; L40.9 Psoriasis, unspecified; M10.9 Gout, unspecified; F17.210 Nicotine dependence, cigarettes, uncomplicated; Z87.442 Personal history of urinary calculi; Z79.82 Long term (current) use of aspirin; Z95.1 Presence of aortocoronary bypass graft; Z95.5 Presence of coronary angioplasty implant and graft; Z95.2 Presence of prosthetic heart valve; M19.071 Primary osteoarthritis, right ankle and foot; M20.11 Hallux valgus (acquired), right foot
CPT/HCPCS: 73630; 73700; 99284

== ENCOUNTER 2024-03-20 05:56 | Inpatient (IN) | payer MEDICARE, SELFPAY ==
[2024-03-20] VITALS (48 sets, daily range): BP systolic 78–115; BP diastolic 35–74; PULSE 67–78; RESP 12–27; TEMP 36.1–36.2; O2SAT 96–100; BMI 32.9
--- NOTE | 2024-03-20 | ECHO_ITS ---
Patient Info Name: Monica Rangel Age: 74 years : 1950 Gender: Female Ht: 62 in Wt: 185 lbs BSA: 1.95 m2 HR: 67 bpm BP: 115 / 74 mmHg Heart Rhythm: Sinus Rhythm Technical Quality: Fair Exam Date: 03/20/2024 10:58 AM Exam Location: Echo Lab Patient Status: Emergency Admit Date: 03/20/2024 Staff Ordering Physician: Cholo Escalera MD Design Architect: Loli Amaro RDCS Attending Provider: Patricia Farah MD Referring Physician: Lali RODRIGUEZ; Exam Type: CA echo dop color flow w con Study Info Indications - CHF exacerbation Complete two-dimensional, color flow and Doppler transthoracic echocardiogram is performed with contrast to opacify the left ventricle and to improve the deliniation of the left ventricle endocardial borders. Contrast/Agitated Saline Contrast/Ag. Saline: Definity Amount: 2.00 ml Administered By: Loli Amaro RDCS Existing IV Access: Yes IV Access Condition: patent with no signs of infiltration Summary 1. Left ventricular chamber dimension is normal. 2. Left ventricular systolic function is mildly reduced, estimated at 45-50%. 3. Left ventricular septal wall motion is abnormal with septal motion related to a post-operative state. 4. Right ventricular systolic function is normal. 5. Known history of mitral valve replacement. Mean gradient is 9mmHg. 6. There is mild tricuspid valve regurgitation. Left Ventricle Left ventricular chamber dimension is normal. Left ventricular systolic function is mildly reduced, estimated at 45-50%. There is no increased left ventricular wall thickness. Left ventricular septal wall motion is abnormal with septal motion related to a post-operative state. The left ventricular diastolic function is indeterminate. Right Ventricle Linear artifact in right ventricle suggestive of catheter(s), pacemaker lead(s), or ICD lead(s). Right ventricular chamber dimension is normal. Right ventricular systolic function is normal. Left Atria Left atrial chamber dimension is normal. Right Atria Linear artifact in the right atrium suggestive of catheter(s), pacemaker lead(s), or ICD lead(s). Right atrial chamber dimension is normal. Atrial Septum Intact interatrial septum visualized by color flow imaging. Aortic Valve The aortic valve is not well visualized. There is no aortic valve stenosis. There is no aortic valve regurgitation. Pulmonic Valve The pulmonic valve is not well visualized. There is trace pulmonic regurgitation. Mitral Valve Known history of mitral valve replacement. Mean gradient is 9mmHg. There is trace mitral valve regurgitation. Tricuspid Valve There is mild tricuspid valve regurgitation. Pericardium/Pleural There is no pericardial effusion. Inferior Vena Cava Normal inferior vena cava with >50% collapse upon inspiration consistent with normal right atrial pressure, 3 mmHg. Aorta The aortic root size at the sinus of Valsalva is normal. There is moderate aortic atherosclerosis. Left Ventricular Outflow Tract Name Value Normal LVOT 2D LVOT Diameter 1.95 cm LVOT Doppler LVOT Peak Gradient 3 mmHg LVOT Mean Gradient
--- NOTE | ~2024-03-20 | XR_ITS ---
EXAMINATION: XR chest 1V portable DATE: 03/20/2024 10:30 INDICATION: Bilateral leg swelling. TECHNIQUE: A single frontal view of the chest was obtained. COMPARISON: Chest single view 09/13/2022 FINDINGS: There is no pneumonia, pleural effusion, or pneumothorax. Cardiomegaly is noted. There are changes of heart valve replacement. There is a closure device at left atrial appendage. There is a le ft chest pacer with leads in right atrium, right ventricle, and coronary sinus. IMPRESSION: 1. Cardiomegaly. Reviewed, dictated and finalized at location A. IMPRESSION: 1. Cardiomegaly.
--- NOTE | ~2024-03-20 | US_ITS ---
EXAMINATION: US venous doppler [facility] DATE: 03/20/2024 09:34 INDICATION: Lower limb swelling and pain. TECHNIQUE: Grayscale ultrasound images without and with compression and Doppler ultrasound images of the bilateral lower extremity veins were obtained. COMPARISON: Ultrasound 07/10/2021 FINDINGS: The visualized portions of right common femoral vein, profunda (deep) femoral vein, femoral vein, pop liteal vein, peroneal veins, posterior tibial veins, and greater saphenous vein outflow are patent. The visualized portions of left common femoral vein, profunda femoral vein, femoral vein, popliteal v ein, peroneal veins, posterior tibial veins, and greater saphenous vein outflow are patent. IMPRESSION: 1. No deep venous thrombosis. Reviewed, dictated and finalized at location A.
--- NOTE | ~2024-03-20 | US_ITS ---
EXAMINATION: US venous doppler [facility] RT DATE: 03/22/2024 12:43 INDICATION: Right upper limb swelling. TECHNIQUE: Grayscale ultrasound images without and with compression and Doppler ultrasound images of the right upper extremity veins were obtained. COMPARISON: None. FINDINGS: The visualized portions of the right internal jugular vein, subclavian vein, axillary vein, brachial veins, basilic vein, cephalic vein, radial vein, and ulnar vein are patent. IMPRESSION: 1. No deep venous thrombosis. Reviewed, dictated and finalized at location A.
--- NOTE | ~2024-03-20 | XR_ITS ---
EXAMINATION: XR chest 1V portable DATE: 03/28/2024 13:02 INDICATION: Shortness of breath. TECHNIQUE: A single frontal view of the chest was obtained. COMPARISON: Chest single view 03/24/24 FINDINGS: There is no pneumonia, pleural effusion, or pneumothorax. Cardiomegaly is noted. There are changes of heart valve replacement. There is a closure device at left atrial appendage. There is a le ft chest pacer with leads in right atrium, right ventricle, and coronary sinus. IMPRESSION: 1. Cardiomegaly. Reviewed, dictated and finalized at location A. IMPRESSION: 1. Cardiomegaly.
--- NOTE | ~2024-03-20 | US_ITS ---
Renal-Bladder ultrasound Clinical History: Acute renal insufficiency Technique: Real-time sonographic imaging of the kidneys and urinary bladder was performed. Findings: The right kidney measures 9.9 cm in length and the left kidney measures 9.2 cm. There is no hydronephrosis or renal calculus identified. Renal cortical echogenicity is within normal limits. No solid renal mass lesion is identified. Left renal cysts noted. The urinary bladder is moderately distended at the time of this exam. No intraluminal echoes are iden tified. No abnormal wall thickening is seen. Impression: Unremarkable ultrasound of the kidneys and urinary bladder. Reviewed, dictated and finalized at location M. Impression: Unremarkable ultrasound of the kidneys and urinary bladder.
--- NOTE | ~2024-03-20 | XR_ITS ---
XR chest 1V portable 03/24/2024 17:19 Indication: Elevated white blood cell count Procedure: AP portable chest Comparison: Comparison to multiple prior studies sequentially, with oldest reviewed study dated 08/01. Findings: Status post median sternotomy for CABG. There is a closure device overlying the left cardia c contour. Pacemaker leads are in expected position. Cardiomegaly. Mild interstitial edema. No signif icant effusion, focal pneumonia or pneumothorax. No acute osseous abnormality. Impression: 1: Cardiomegaly with mild interstitial edema. Reviewed, dictated and finalized at location A. Impression: 1: Cardiomegaly with mild interstitial edema.
[2024-03-20 06:53] LABS: Basophils Percent Auto 0.4 % (0.2-1.2); Eosinophils Absolute Auto 0.3 K/mm3 (0-0.3); Eosinophils Percent Auto 4.5 % (0-4.4); Hematocrit 32.2 % (37.0-47.0); Hemoglobin 10.7 g/dL (12.0-15.0); Immature Granulocyte Absolute 0.03 K/mm3 (0.00-0.031); Immature Granulocyte Percent A 0.4 % (0-0.5); Lymphocytes Absolute Auto 0.68 K/mm3 (0.9-3.2); Lymphocytes Percent Auto 10.1 % (18.3-44.2); Mean Corpuscular HGB Conc 33.2 g/dl (32-36); Mean Corpuscular Hemoglobin 30.1 pg (26-34); Mean Corpuscular Volume 90.7 fl (80-100); Mean Platelet Volume 10.8 fl (7.4-10.4); Monocytes Absolute Auto 0.6 K/mm3 (0.1-0.6); Monocytes Percent Auto 9.3 % (2.6-8.5); Neutrophils Percent Auto 75.3 % (45.5-73.1); Platelet Count Result 221 k/mm3 (150-375); Red Blood Count 3.55 M/mm3 (4.2-5.4); Red Cell Distribution Width 14.6 % (11.5-14.5); White Blood Count 6.7 K/mm3 (4.5-10.0)
[2024-03-20 07:03] LABS: Alanine Aminotransferase 11 U/L (6-35); Albumin Level 3.7 g/dL (3.5-5.1); Alkaline Phosphatase 103 U/L (38-126); Anion Gap 6 mmol/L (4-12); Aspartate Amino Transferase 17 U/L (14-36); Bilirubin,Total 0.5 mg/dL (0.2-1.3); Blood Urea Nitrogen 80 mg/dL (7-17); Calcium 8.9 mg/dL (8.4-10.2); Carbon Dioxide 27 mmol/L (22-30); Chloride 102 mmol/L (98-107); Estimated CRCL calculation 12 ml/min; Estimated Glomerular Filt Rate 12; Glucose 103 mg/dL (65-110); Potassium 3.9 mmol/L (3.4-5.0); Sodium 135 mmol/L (137-145)
[2024-03-20 07:12] LABS: NT Pro B Type Natriuretic Pept 6560 pg/mL (19.9-100)
--- NOTE | 2024-03-20 07:41 | ED.EXTPRO ---
HPI - Extremity Problem General Chief complaint: Extremity Problem,Nontraumatic Stated complaint: bilateral leg pain/swelling Time Seen by Provider: 03/20/24 07:38 Source: patient and family Limitations: no limitations History of Present Illness HPI Narrative: Patient (last name pronounced Rigo ) presents with bilateral leg swelling last 2 weeks. This began to be painful starting yesterday. The pain is worse on the right however both are involved. Patient normally ambulates on her own without difficulty but the degree of pain and swelling has started to limit this. She has a history of heart failure for which she is on 2 types of diuretics 1 of which she takes daily and 1 of which she takes b.i.d. for a total of 3 pills daily. She endorses taking these medications as prescribed and not missing doses. She is denies any shortness of breath at present states that she only become shortness of breath occasionally. Her parakeet raiser is Dr. Martínez, her gas controller is Dr. Fu, and she sees a facing baster for her psoriasis for which she takes a cream. Related Data Home Medications Medication Instructions Recorded Confirmed aspirin 325 mg tablet 325 mg PO DAILY 07/09/21 03/20/24 amiodarone 200 mg tablet (Pacerone) 200 mg PO DAILY 09/28/21 03/20/24 carvedilol 3.125 mg tablet 3.125 mg PO Q12H 09/29/21 03/20/24 furosemide 80 mg tablet 80 mg PO BID 02/06/24 03/20/24 sacubitril 24 mg-valsartan 26 mg 1 tablet PO BID 02/06/24 03/20/24 tablet (Entresto) levothyroxine 75 mcg tablet 75 mcg PO DAILY 03/20/24 03/20/24 Allergies Allergy/AdvReac Type Severity Reaction Status Date / Time No Known Allergies Allergy Verified 03/20/24 13:21 [facility] Past Medical History Medical History (Updated 03/20/24 @ 22:11 by Patricia Farah MD) Acute non-ST elevation myocardial infarction (NSTEMI) Aortic stenosis Atrial fibrillation with rapid ventricular response CAD (coronary artery disease) Cardiomyopathy Ejection fraction as low as 10 to 15%, most recent EF was 36%. Status post ICD insertion. Chronic kidney disease Chronic obstructive pulmonary disease Congestive heart failure Contraindication to anticoagulation therapy Secondary to GI bleed. Status post left atrial appendage ligation. Coronary artery disease Status post 2 vessel bypass. Depression GI bleed Gout History of placement of internal cardiac defibrillator Hyperlipidemia Kidney stones LBBB (left bundle branch block) Nephrolithiasis Nocturnal hypoxia Paroxysmal atrial fibrillation Psoriasis Subcapital fracture of right hip Tobacco dependence Surgical History Surgical History H/O two vessel coronary artery bypass graft (04/2021) History of appendectomy History of coronary artery stent placement History of hip surgery (08/2022) ORIF for fracture History of mitral valve replacement with bioprosthetic valve History of tricuspid valve repair History of tubal ligation History of two vessel coronary artery bypass graft Status post ligation of left atrial appendage Family History Family History Father Cancer Mother Acute myocardial infarction Congestive heart failure Son Diabetes mellitus Sibling Chronic obstructive pulmonary disease Social History Social History (Updated 03/20/24 @ 22:13 by Patricia Farah MD) Social History: The patient lives with her and 1 of their sons in [place]. She has 2 other sons that live nearby. She smoked up to 3 packs of cigarettes a day at 1 time but she is down to about half a pack a day. She denies alcohol and illicit substance use. The patient still smokes about half a pack a cigarettes a day for 50 years. Prior to COV-19 the patient was working for the [employer]. She designates her Adiel Rangel as her surrogate decision maker. Patient had previously stated she wished to be a full
[2024-03-20 08:15] LABS: Creatine Kinase 37 U/L (30-135); Magnesium 1.9 mg/dL (1.6-2.3)
[2024-03-20 08:34] LABS: D Dimer 2.92 ug/mL (<0.48)
--- NOTE | 2024-03-20 10:35 | ECG_ITS ---
SEE SCANNED COPY FOR CONFIRMED REPORT MTDD
[2024-03-20] MEDS: PERFLUTREN LIPID MICROSPHERES 1.5 ML VIAL DILUTED TO 10 ML TOTAL VOLUME IV PUSH (11:00)
[2024-03-20 11:01] LABS: Troponin I 0.035 ng/mL (0.000-0.034)
[2024-03-20] MEDS: ASPIRIN 81 MG CHEWABLE TABLET 324 MG PO (12:01)
--- NOTE | 2024-03-20 12:10 | PM.IMHP ---
H&P: HPI History of Present Illness Date/Time: 03/20/24 12:10 Chief Complaint: BLE Swelling Narrative: 74 y/o F presents here with bilateral lower extremity swelling with PMH of COPD, NSTEMI, AFib, CAD, CKD S4, CABG, depression, HLD, kidney stones, pacer/defibrilator in place, psoriasis, and tobacco use (current/former). Patient presents here from home with complaints of BLE swelling noted approximately 2 weeks ago. Lower extremities became painful starting yesterday, L worse than R. At baseline patient ambulates without difficulty and without assistive devices. However, due to swelling the patient reports that ambulation is too painful and her mobility is now limited. Attempted to use walker but had to drag her LLE due to pain and denies weakness. States her left foot hurts more than her right and does have small brusie near ankle but denies trauma to foot/LE. Patient has hx of CHF - currently on Lasix 80 mg BID. Endorsing fatigue. Denying chest pain, shortness of breath, or palpitations. Patient follows with cardiology, dermatology, and nephrology. Per chart review of last nephrology note (02/06/24), elevation in creatinine likely secondary to HTN and chronic prerenal azotemia due to low EF. General plan is for preservation of renal function - was offered statin (refused) and counseled on smoking cessation (cited that she was worried because it killed my mom ). Lasix listed as 80 mg BID. Per last cardiology note (02/22/24), patient had metolazone 2.5 mg PO daily x5 days added in 10/2023 which improved edema and patient had 7 lb weight loss. Initial VS at presentation: 97? F, HR 68, R 15, 95/39, and 100% on RA. ED workup showed: no leukocytosis, hemoglobin 10.7, sodium 135, creatinine 3.7 and GFR 12, BNP 6560. CXR showed cardiomegaly. US of BLE showed no DVT. Review of Systems Review of Systems: All systems reviewed & are unremarkable except as noted in HPI and below [facility] Past Medical History Medical History Acute non-ST elevation myocardial infarction (NSTEMI) Aortic stenosis Atrial fibrillation with rapid ventricular response CAD (coronary artery disease) Cardiomyopathy Ejection fraction as low as 10 to 15%, most recent EF was 36%. Status post ICD insertion. Chronic kidney disease Chronic obstructive pulmonary disease Congestive heart failure Contraindication to anticoagulation therapy Secondary to GI bleed. Status post left atrial appendage ligation. Coronary artery disease Status post 2 vessel bypass. Depression GI bleed Gout History of placement of internal cardiac defibrillator Hyperlipidemia Kidney stones LBBB (left bundle branch block) Nephrolithiasis Nocturnal hypoxia Paroxysmal atrial fibrillation Psoriasis Subcapital fracture of right hip Tobacco dependence Surgical History Surgical History H/O two vessel coronary artery bypass graft (04/2021) History of appendectomy History of coronary artery stent placement History of hip surgery (08/2022) ORIF for fracture History of mitral valve replacement with bioprosthetic valve History of tricuspid valve repair History of tubal ligation History of two vessel coronary artery bypass graft Status post ligation of left atrial appendage Family History Family History Father Cancer Mother Acute myocardial infarction Congestive heart failure Son Diabetes mellitus Sibling Chronic obstructive pulmonary disease Social History Social History Social History: The patient lives with her and 1 of their sons in [place]. She has 2 other sons that live nearby. She smoked up to 3 packs of cigarettes a day at 1 time but she is down to about half a pack a day. She denies alcohol and illicit substance use. The patient still smokes about half a pack
--- NOTE | 2024-03-20 12:17 | IVDEFINITY ---
Prior to administration of IV Definity the patient was educated on the risks and benefits of the imaging enhancing agent including potential adverse side effects. The patient verbalized understanding. Allergies were verified. No exclusion criteria were identified and at least one of the following inclusion criteria were met: 1) physician request, 2) patient technically difficult to image (per the [place] [employer]ocardi[employer] guidelines of two or more segments not discernable within the apical view), or 3) questionable left ventricular function. ?
[2024-03-20 12:18] LABS: Troponin I 0.029 ng/mL (0.000-0.034)
[2024-03-20] MEDS: FUROSEMIDE INJ 100 MG/10 ML VIAL 80 MG IV PUSH (12:43)
--- NOTE | 2024-03-20 13:11 | ADMGEN ---
This patient, Monica Rangel, was admitted to IMU Room 205-02 @ 1250. Patient/family oriented to hospital policies and general routines including ID bracelet, bed and alarms, visiting hours, pain management, procedures, bathroom and other care routines, personal items, smoking policy, room service/diet, and visiting hours. Information on how to activate the Rapid Response Team has been discussed. Patient/Family are encouraged to report perceived risks to care and to ask questions if they do not understand what they are told or what they should do.
--- NOTE | 2024-03-20 13:41 | PM.CNNEP ---
Assessment and Plan Assessment and plan (1) FRANK (acute kidney injury): Code(s): N17.9 - Acute kidney failure, unspecified Status: Acute Assessment and Plan: etiology not entirely clear higher creatinine noted in January 2024 as well however, some improvement in spite of IV diuretic therapy possible renal venous hypertension that is being alleviated by more aggressive diuretic therapy? her relative hypotension may have also caused some element of renal hypoperfusion check urine studies and CPK check renal ultrasound follow trend of repeat labs and UOP (2) Chronic kidney disease, stage 4 (severe): Code(s): N18.4 - Chronic kidney disease, stage 4 (severe) Status: Chronic Assessment and Plan: baseline creatinine runs ~ 1.7 - 2.2mg/dl based on outpatient evaluation, thought to be secondary to previous HTN and chronic prerenal azotemia from her CHF/cardiomyopathy with ongoing need for diuretic therapy (3) Bilateral lower extremity edema: Code(s): R60.0 - Localized edema Status: Acute Assessment and Plan: presumsed to be due to FRANK and chronic CHF no DVT by LE dopplers no evidence of infection BNP noted to be elevated continue trial of IV diuretics compression stockings as tolerated follow clinical exam (4) Chronic systolic (congestive) heart failure: Code(s): I50.22 - Chronic systolic (congestive) heart failure Status: Acute Assessment and Plan: elevated BNP (but better in comparison to previous values) last Echo noted: EF 35-40%, LV diastolic dysfunction Grade 2 repeat Echo ordered will start IV bumex daily weights and follow I/Os I will continue to follow the patient with you while she remains hospitalized and make further recommendations as deemed necessary. Thank you for allowing me to participate in the care of this patient. History of Present Illness Reason for Consult Consult date: 03/20/24 Reason for consult: acute renal failure (on chronic kidney disease) Chief Complaint Chief complaint: nstemi,heart failure exacerbation requiring diures History of Present Illness Narrative: The patient is a 74-year-old female with a past medical history as outlined below who presented to [facility] Emergency room with complaints of worsening bilateral lower extremity edema. The patient reports that her bilateral lower extremity edema has been progressively worsening over the last couple of weeks if not longer. On the day of presentation to the emergency room, the swelling and edema had gotten so bad that she was having significant pain and discomfort in her lower extremities. Given the increasing lower extremity edema in association with pain, she has been having difficulty ambulating even with the use/assistance of a walker. She denies any chest pain, shortness of breath, palpitations, fevers, or chills and has been compliant with her diuretic therapy which includes Lasix and metolazone. Given these constellation of symptoms, she came to the ER for further assessment. Workup and evaluation emergency room demonstrated the patient to be hemodynamically stable although her blood pressure was a bit on the soft side but this is a chronic issue/ finding. Routine blood tests demonstrated a CBC with no white blood cell count, relative anemia, and a normal platelet count but her chemistry showed a significantly higher BUN and creatinine than baseline in association with an elevated BNP. Her chest x-ray showed cardiomegaly and an ultrasound of her bilateral lower extremities demonstrate no evidence of DVT/clot. She was initiated on IV diuretic therapy given the severity of her lower extremity edema that was felt to be related to her renal dysfunction and underlying history of CHF. She was subsequently admitted to the hospital for further evaluation and therapy. Since her admission, she has had a reasonable response to IV diuretics
[2024-03-20 18:49] LABS: Creatinine Urine 42.5 mg/dL; Total Protein Urine Random 9 mg/dL; Ur Ttl Prot Creatinine Ratio 0.21 mg/mg (0-0.20)
[2024-03-20 18:56] LABS: Sodium Urine Random 111 meq/L
[2024-03-21] VITALS (11 sets, daily range): BP systolic 88–108; BP diastolic 36–55; PULSE 72–80; RESP 15–24; TEMP 36.1–36.5; O2SAT 92–98
[2024-03-21 04:35] LABS: Basophils Percent Auto 0.2 % (0.2-1.2); Eosinophils Absolute Auto 0.1 K/mm3 (0-0.3); Eosinophils Percent Auto 1.3 % (0-4.4); Hematocrit 34.3 % (37.0-47.0); Hemoglobin 10.8 g/dL (12.0-15.0); Immature Granulocyte Absolute 0.02 K/mm3 (0.00-0.031); Immature Granulocyte Percent A 0.2 % (0-0.5); Lymphocytes Absolute Auto 0.39 K/mm3 (0.9-3.2); Lymphocytes Percent Auto 4.7 % (18.3-44.2); Mean Corpuscular HGB Conc 31.5 g/dl (32-36); Mean Platelet Volume 11.4 fl (7.4-10.4); Monocytes Absolute Auto 0.6 K/mm3 (0.1-0.6); Monocytes Percent Auto 7.7 % (2.6-8.5); Neutrophils Absolute Auto 7.1 K/mm3 (1.3-6.7); Neutrophils Percent Auto 85.9 % (45.5-73.1); Platelet Count Result 228 k/mm3 (150-375); Red Blood Count 3.73 M/mm3 (4.2-5.4); Red Cell Distribution Width 14.6 % (11.5-14.5); White Blood Count 8.3 K/mm3 (4.5-10.0)
[2024-03-21 04:59] LABS: Alanine Aminotransferase 9 U/L (6-35); Albumin Level 3.6 g/dL (3.5-5.1); Alkaline Phosphatase 112 U/L (38-126); Anion Gap 7 mmol/L (4-12); Aspartate Amino Transferase 18 U/L (14-36); Bilirubin,Total 0.6 mg/dL (0.2-1.3); Blood Urea Nitrogen 72 mg/dL (7-17); Calcium 9.1 mg/dL (8.4-10.2); Carbon Dioxide 27 mmol/L (22-30); Chloride 102 mmol/L (98-107); Creatine Kinase 35 U/L (30-135); Estimated CRCL calculation 15 ml/min; Estimated Glomerular Filt Rate 15; Glucose 117 mg/dL (65-110); Potassium 3.9 mmol/L (3.4-5.0); Sodium 136 mmol/L (137-145)
[2024-03-21] MEDS: LEVOTHYROXINE SODIUM 75 MCG TABLET PO (06:37)
[2024-03-21] MEDS: SACUBITRIL/VALSARTAN 24-26 MG TABLET 1 TAB PO ×2 (09:08→21:36)
[2024-03-21] MEDS: AMIODARONE HCL 200 MG TABLET PO (09:08)
[2024-03-21] MEDS: ASPIRIN 325 MG TABLET PO (09:09)
[2024-03-21] MEDS: BUMETANIDE INJ 2.5 MG/10 ML VIAL 1.5 MG IV PUSH ×2 (09:09→16:15)
[2024-03-21] MEDS: carvediloL 3.125 MG TABLET PO ×2 (09:09→21:36)
[2024-03-21] MEDS: MICONAZOLE NITRATE 2% CREAM 30 GM TUBE 1 APPLIC TOPICAL ×2 (09:11→16:17)
--- NOTE | 2024-03-21 09:35 | PM.IMPN ---
Progress Note: A&P Assessment and Plan (1) Bilateral lower extremity edema: Code(s): R60.0 - Localized edema Status: Acute Assessment and Plan: - US of BLE: no DVT - BNP elevated - no signs of infection on exam, does have slight ecchymosis to left ankle. Diffuse tenderness on exam. if no improvement with diuresis, consider XR. - suspect edema secondary to FRANK combined with CHF - see plans below - add knee high compression stockings as tolerated 03/21: Nephrology consulted, IV Bumex has been ordered (2) Chronic systolic (congestive) heart failure: Code(s): I50.22 - Chronic systolic (congestive) heart failure Status: Acute Assessment and Plan: - BNP 6560 (previously 31,200 in 2020) - most recent echo (2021): EF 35-40%, LV diastolic dysfunction Grade 2, see readout for full details. Update echo. - currently on: Lasix 80 mg BID, hold. Given 40 mg and 80 mg of IVP Lasix in ED. resume diuretics as tolerated renally. - daily weights - monitor I&Os - trend renal function 03/21: Nephrology consulted, IV Bumex has been ordered (3) Acute kidney injury superimposed on CKD: Code(s): N17.9 - Acute kidney failure, unspecified; N18.9 - Chronic kidney disease, unspecified Status: Acute Assessment and Plan: - creatinine 3.7 (previously 2.8 on 02/06/24) - GFR 12 (previously 17 on 02/06/24) - hx of CKD stage IV - add CK, urine sodium, urine protein/creatinine, urine protein - monitor I&Os - hold Lasix, given 40 + 80 of IVP lasix in ED, on 80 BID daily. resume as renally tolerated. - nephrology consultation, awaiting recs - trend renal function - trend electrolytes, correct as needed - suspect injury secondary to diuresis 03/21: Nephrology consulted, IV Bumex has been ordered (4) CAD (coronary artery disease): Qualifiers: Coronary Disease-Associated Artery/Lesion type: [place] artery [place] vs. transplanted heart: [place] heart Associated angina: without angina Qualified Code(s): I25.10 - Atherosclerotic heart disease of [place] coronary artery without angina pectoris Code(s): I25.10 - Atherosclerotic heart disease of [place] coronary artery without angina pectoris Status: Chronic Assessment and Plan: - hx of CABG and NSTEMI - troponin: 0.035 -> 0.029, flat and no active CP - continue home medications: Entresto 24-26 mg BID, asa 325 daily 03/21: Troponin not likely to be related to ACS, okay to downgrade to the medical floor Plan Diet: heart healthy GI Prophylaxis: not currently indicated DVT Prophylaxis: TEDs Lines: peripheral Code Status: DNR Time Spent With Patient Time with patient: 25 - 35 minutes Subjective Date/time seen: 03/21/24 09:35 Interval history: This is a 74-year-old female with a history of congestive heart failure and significant chronic kidney disease who was admitted for IV diuresis due to lower extremity swelling limiting her ability to walk. Patient complains swelling mostly problematic around the left lower leg causing her pain. She is usually on 80 mg of Lasix twice daily oral. Patient denies chest pain had minimal shortness of breath which has improved since admit. Leg swelling has also decreased since admission. Review of Systems Review of Systems: All systems reviewed & are unremarkable except as noted in HPI and below Exam Narrative: psoriasis plaque to right ankle, left ankle with scant ecchymosysis. 2+ edema to BLE from upper calves down w/diffuse tenderness. expiratory wheeze. A/Ox4. Const: General: no acute distress and uncomfortable Other: , female, elderly, nontoxic appearance HENMT: Face/Nose/Sinus: Normal nares present Mouth: Yes moist mucous membranes Eyes: General: appearance normal, both eyes and all related structures Sclera: sclerae normal Pupils: Equal, round and reactive pupils present Resp: Effort & Inspection: normal respiratory effort Auscultation: wheez
--- NOTE | 2024-03-21 16:21 | PM.PNNEP ---
Progress Note: A&P Assessment and Plan (1) FRANK (acute kidney injury): Code(s): N17.9 - Acute kidney failure, unspecified Status: Acute Assessment and Plan: slow improvement etiology not entirely clear higher creatinine noted in January 2024 as well improvement in spite of IV diuretic therapy possible renal venous hypertension that is being alleviated by more aggressive diuretic therapy? her relative hypotension may have also caused some element of renal hypoperfusion as well follow-up on renal ultrasound and urine studies; CPK okay follow trend of repeat labs and UOP (2) Chronic kidney disease, stage 4 (severe): Code(s): N18.4 - Chronic kidney disease, stage 4 (severe) Status: Chronic Assessment and Plan: baseline creatinine runs ~ 1.7 - 2.2mg/dl based on outpatient evaluation, thought to be secondary to previous HTN and chronic prerenal azotemia from her CHF/cardiomyopathy with ongoing need for diuretic therapy (3) Bilateral lower extremity edema: Code(s): R60.0 - Localized edema Status: Acute Assessment and Plan: doing better presumsed to be due to FRANK and chronic CHF no DVT by LE dopplers no evidence of infection BNP noted to be elevated continue trial of IV diuretics compression stockings as tolerated follow clinical exam (4) Chronic systolic (congestive) heart failure: Code(s): I50.22 - Chronic systolic (congestive) heart failure Status: Acute Assessment and Plan: elevated BNP (but better in comparison to previous values) last Echo noted: EF 35-40%, LV diastolic dysfunction Grade 2 repeat Echo ordered will start IV bumex daily weights and follow I/Os Will continue to follow. Subjective Date/time seen: 03/21/24 16:21 Interval history: Follow-up for acute kidney injury/acute renal failure on chronic kidney disease. Improvement noted with regard to bilateral lower extremity swelling/edema with current interventions/therapy along with improvement in renal function/creatinine; no apparent distress noted; no other issues/events overnight or earlier this morning. Exam Narrative: General: elderly but WD/WN female in NAD Heart: normal S1 and S2; no rub Lungs: clear anteriorly; few scant wheezes Abdomen: soft, nontender, nondistended, positive bowel sounds Extremities: no cyanosis or clubbing; 2+ edema Skin: warm and dry Objective Data Vital Signs Vital Signs: Vital Signs Temp Pulse Resp BP Pulse Ox O2 Del Method 03/21/24 16:00 97.7 F 78 22 H 101/36 L 92 03/21/24 12:00 97.4 F L 77 20 88/41 L 93 03/21/24 09:09 76 03/21/24 09:08 78 03/21/24 08:00 97 F L 80 24 H 101/41 L 98 03/21/24 06:00 80 03/21/24 04:00 Room Air 03/21/24 04:00 79 03/21/24 02:00 79 03/21/24 00:00 76 03/20/24 22:00 76 03/20/24 20:00 72 03/21/24 04:00 97.3 F L 79 16 103/39 L 96 03/21/24 00:00 Room Air 03/21/24 00:00 97.5 F L 77 15 107/41 L 94 03/20/24 20:00 Room Air 03/20/24 19:59 97.2 F L 72 16 108/64 96 Intake/Output Intake/Output: Intake & Output 03/18/24 03/19/24 03/20/24 03/21/24 23:59 23:59 23:59 23:59 Intake Total 1510 Output Total 750 2550 Balance -750 -1040 Meds/Results Medications: Active Medications Generic Name Dose Route Start Last Admin Trade Name Freq PRN Reason Stop Dose Admin Acetaminophen 650 mg 03/20/24 12:05 Acetaminophen 325 Mg Tablet PO Q4H PRN Mild Pain (1-3) or Fever Albuterol 2 puff 03/20/24 22:31 Albuterol Sulfate (*Sp) Aerosol 1 Puff INHALATION Q4HRT PRN shortness of breath or wheezing Amiodarone HCl 200 mg 03/21/24 09:00 03/21/24 09:08 Amiodarone Hcl 200 Mg Tablet PO 200 mg DAILY MADELINE Administration Aspirin 325 mg 03/21/24 09:00 03/21/24 09:09 Aspirin 325 Mg Tablet PO 325 mg DAILY MADELINE Ad
--- NOTE | 2024-03-21 16:21 | P.PNNP_ITS ---
Progress Note: A&P Assessment and Plan (1) FRANK (acute kidney injury): Code(s): N17.9 - Acute kidney failure, unspecified Status: Acute Assessment and Plan: * slow improvement * etiology not entirely clear * higher creatinine noted in January 2024 as well * improvement in spite of IV diuretic therapy * possible renal venous hypertension that is being alleviated by more aggressive diuretic therapy? * her relative hypotension may have also caused some element of renal hypoperfusion as well * follow-up on renal ultrasound and urine studies; CPK okay * follow trend of repeat labs and UOP (2) Chronic kidney disease, stage 4 (severe): Code(s): N18.4 - Chronic kidney disease, stage 4 (severe) Status: Chronic Assessment and Plan: * baseline creatinine runs ~ 1.7 - 2.2mg/dl * based on outpatient evaluation, thought to be secondary to previous HTN and chronic prerenal azotemia from her CHF/cardiomyopathy with ongoing need for diuretic therapy (3) Bilateral lower extremity edema: Code(s): R60.0 - Localized edema Status: Acute Assessment and Plan: * doing better * presumsed to be due to FRANK and chronic CHF * no DVT by LE dopplers * no evidence of infection * BNP noted to be elevated * continue trial of IV diuretics * compression stockings as tolerated * follow clinical exam (4) Chronic systolic (congestive) heart failure: Code(s): I50.22 - Chronic systolic (congestive) heart failure Status: Acute Assessment and Plan: * elevated BNP (but better in comparison to previous values) * last Echo noted: EF 35-40%, LV diastolic dysfunction Grade 2 * repeat Echo ordered * will start IV bumex * daily weights and follow I/Os Will continue to follow. Subjective Date/time seen: 03/21/24 16:21 Interval history: Follow-up for acute kidney injury/acute renal failure on chronic kidney disease. Improvement noted with regard to bilateral lower extremity swelling/edema with current interventions/therapy along with improvement in renal function/ creatinine; no apparent distress noted; no other issues/events overnight or earlier this morning. Exam Narrative: General: elderly but WD/WN female in NAD Heart: normal S1 and S2; no rub Lungs: clear anteriorly; few scant wheezes Abdomen: soft, nontender, nondistended, positive bowel sounds Extremities: no cyanosis or clubbing; 2+ edema Skin: warm and dry Objective Data Vital Signs Vital Signs: Vital Signs Temp Pulse Resp BP Pulse Ox O2 Del Method 03/21/24 16:00 97.7 F 78 22 H 101/36 L 92 03/21/24 12:00 97.4 F L 77 20 88/41 L 93 03/21/24 09:09 76 03/21/24 09:08 78 03/21/24 08:00 97 F L 80 24 H 101/41 L 98 03/21/24 06:00 80 03/21/24 04:00 Room Air 03/21/24 04:00 79 03/21/24 02:00 79 03/21/24 00:00 76 03/20/24 22:00 76 03/20/24 20:00 72 03/21/24 04:00 97.3 F L 79 16 103/39 L 96 03/21/24 00:00 Room Air 03/21/24 00:00 97.5 F L 77 15 107/41 L 94 03/20/24 20:00 Room Air 03/20/24 19:59 97.2 F L 72 16 108/64 96 Intake/Output Intake/Output: Intake & Output 03/18/24 03/19/2403/20
--- NOTE | 2024-03-21 16:36 | PC.NURSE ---
Patient blood pressure consistently hypotensive for the duration of this admission. Patient remains asymptomatic and at baseline upon assessment prior to administering scheduled evening medications. She further stated that when she checks her blood pressure at home that's about what it runs usually Will ensure receiving RN aware of vitals and assessment upon transfer
--- NOTE | 2024-03-21 18:40 | PC.NURSE ---
Received IMU transfer [facility] to room 240 at 1700 Patient oriented to new room and instructed to use call button for help.
[2024-03-21] MEDS: ACETAMINOPHEN 325 MG TABLET 650 MG PO (21:39)
[2024-03-22] VITALS (10 sets, daily range): BP systolic 89–123; BP diastolic 36–80; PULSE 70–85; RESP 16–20; TEMP 36.2–36.8; O2SAT 92–96
[2024-03-22] MEDS: LEVOTHYROXINE SODIUM 75 MCG TABLET PO (05:36)
[2024-03-22 06:42] LABS: Basophils Percent Auto 0.2 % (0.2-1.2); Hemoglobin 10.6 g/dL (12.0-15.0); Immature Granulocyte Absolute 0.05 K/mm3 (0.00-0.031); Immature Granulocyte Percent A 0.4 % (0-0.5); Lymphocytes Percent Auto 4.1 % (18.3-44.2); Mean Corpuscular HGB Conc 32.1 g/dl (32-36); Mean Corpuscular Hemoglobin 29.6 pg (26-34); Mean Corpuscular Volume 92.2 fl (80-100); Mean Platelet Volume 11.6 fl (7.4-10.4); Monocytes Absolute Auto 1.3 K/mm3 (0.1-0.6); Monocytes Percent Auto 10.6 % (2.6-8.5); Neutrophils Absolute Auto 10.4 K/mm3 (1.3-6.7); Neutrophils Percent Auto 84.7 % (45.5-73.1); Platelet Count Result 195 k/mm3 (150-375); Red Blood Count 3.58 M/mm3 (4.2-5.4); Red Cell Distribution Width 14.5 % (11.5-14.5); White Blood Count 12.2 K/mm3 (4.5-10.0)
[2024-03-22 06:58] LABS: Alanine Aminotransferase 9 U/L (6-35); Albumin Level 3.4 g/dL (3.5-5.1); Alkaline Phosphatase 88 U/L (38-126); Anion Gap 3 mmol/L (4-12); Aspartate Amino Transferase 18 U/L (14-36); Bilirubin,Total 0.8 mg/dL (0.2-1.3); Blood Urea Nitrogen 67 mg/dL (7-17); Carbon Dioxide 34 mmol/L (22-30); Chloride 96 mmol/L (98-107); Estimated CRCL calculation 17 ml/min; Estimated Glomerular Filt Rate 17; Glucose 122 mg/dL (65-110); Potassium 3.9 mmol/L (3.4-5.0); Sodium 133 mmol/L (137-145)
--- NOTE | 2024-03-22 07:08 | PM.IMPN ---
Progress Note: A&P Assessment and Plan (1) Bilateral lower extremity edema: Code(s): R60.0 - Localized edema Status: Acute Assessment and Plan: - US of BLE: no DVT - BNP elevated - no signs of infection on exam, does have slight ecchymosis to left ankle. Diffuse tenderness on exam. if no improvement with diuresis, consider XR. - suspect edema secondary to FRANK combined with CHF - see plans below - add knee high compression stockings as tolerated 03/21: Nephrology consulted, IV Bumex has been ordered- 1.5 mg IV BID (2) Chronic systolic (congestive) heart failure: Code(s): I50.22 - Chronic systolic (congestive) heart failure Status: Acute Assessment and Plan: - BNP 6560 (previously 31,200 in 2020) - most recent echo (2021): EF 35-40%, LV diastolic dysfunction Grade 2, see readout for full details. Update echo. - currently on: Lasix 80 mg BID, hold. Given 40 mg and 80 mg of IVP Lasix in ED. - daily weights - monitor I&Os - trend renal function 03/21: Nephrology consulted, IV Bumex has been ordered 03/22 trend renal function. On entresto, coreg, diuretic. unable to start SGLT-2 due to FRANK/CKD (3) Acute kidney injury superimposed on CKD: Code(s): N17.9 - Acute kidney failure, unspecified; N18.9 - Chronic kidney disease, unspecified Status: Acute Assessment and Plan: - creatinine 3.7 (previously 2.8 on 02/06/24) - GFR 12 (previously 17 on 02/06/24) - hx of CKD stage IV - add CK, urine sodium, urine protein/creatinine, urine protein - monitor I&Os - hold Lasix, given 40 + 80 of IVP lasix in ED, on 80 BID daily. resume as renally tolerated. - nephrology consultation, awaiting recs - trend renal function - trend electrolytes, correct as needed - suspect injury secondary to diuresis 03/21: Nephrology consulted, IV Bumex has been ordered 03/22- Cr 2.7, GFR 17, CL wnl, prot/cr ratio-0.21 (4) CAD (coronary artery disease): Qualifiers: Associated angina: without angina Coronary Disease-Associated Artery/Lesion type: [place] artery [place] vs. transplanted heart: [place] heart Qualified Code(s): I25.10 - Atherosclerotic heart disease of [place] coronary artery without angina pectoris Code(s): I25.10 - Atherosclerotic heart disease of [place] coronary artery without angina pectoris Status: Chronic Assessment and Plan: - hx of CABG and NSTEMI - troponin: 0.035 -> 0.029, flat and no active CP - continue home medications: Entresto 24-26 mg BID, asa 325 daily 03/21: Troponin not likely to be related to ACS, okay to downgrade to the medical floor Plan Diet: heart healthy GI Prophylaxis: not currently indicated DVT Prophylaxis: TEDs Lines: peripheral Code Status: DNR Time Spent With Patient Time with patient: 15 - 25 minutes Subjective Date/time seen: 03/22/24 07:08 Interval history: 74-year-old female PMH congestive heart failure and significant chronic kidney disease who was admitted for IV diuresis due to lower extremity swelling limiting her ability to walk.? Patient complains swelling mostly problematic around the left lower leg causing pain.? She is usually on 80 mg of Lasix twice daily oral.? Patient denies chest pain had minimal shortness of breath and leg swelling decreased since admission She was seen per nephrology last night 03/21. 03/22- pt seen and examined today-c/o rt arm swelling and pain- no known injury. leg swelling is a lot better. denies chest pain Review of Systems Review of Systems: All systems reviewed & are unremarkable except as noted in HPI and below Exam Narrative: psoriasis plaque to right ankle, left ankle with scant ecchymosysis. 2+ edema to BLE from upper calves down w/diffuse tenderness. expiratory wheeze. A/Ox4. Const: General: no acute distress and uncomfortable Other: , female, elderly, nontoxic appearance HENMT: Face/Nose/Sinus: Normal nares present Mouth: Yes moist mucous membra
[2024-03-22] MEDS: MICONAZOLE NITRATE 2% CREAM 30 GM TUBE 1 APPLIC TOPICAL ×2 (08:27→17:22)
[2024-03-22] MEDS: ASPIRIN 325 MG TABLET PO (08:27)
--- NOTE | 2024-03-22 11:01 | P.PNNP_ITS ---
Progress Note: A&P Assessment and Plan (1) FRANK (acute kidney injury): Code(s): N17.9 - Acute kidney failure, unspecified Status: Acute Assessment and Plan: * slow improvement * etiology not entirely clear * higher creatinine noted in January 2024 as well * improvement in spite of IV diuretic therapy * possible renal venous hypertension that is being alleviated by more aggressive diuretic therapy? * her relative hypotension may have also caused some element of renal hypoperfusion as well * follow-up on renal ultrasound and urine studies; CPK okay * follow trend of repeat labs and UOP (2) Chronic kidney disease, stage 4 (severe): Code(s): N18.4 - Chronic kidney disease, stage 4 (severe) Status: Chronic Assessment and Plan: * baseline creatinine runs ~ 1.7 - 2.2mg/dl * based on outpatient evaluation, thought to be secondary to previous HTN and chronic prerenal azotemia from her CHF/cardiomyopathy with ongoing need for diuretic therapy (3) Bilateral lower extremity edema: Code(s): R60.0 - Localized edema Status: Acute Assessment and Plan: * doing better * presumsed to be due to FRANK and chronic CHF * no DVT by LE dopplers * no evidence of infection * BNP noted to be elevated * continue trial of IV diuretics * compression stockings as tolerated * follow clinical exam (4) Chronic systolic (congestive) heart failure: Code(s): I50.22 - Chronic systolic (congestive) heart failure Status: Acute Assessment and Plan: * elevated BNP (but better in comparison to previous values) * last Echo noted: EF 35-40%, LV diastolic dysfunction Grade 2 * repeat Echo ordered * will start IV bumex * daily weights and follow I/Os Will continue to follow. Subjective Date/time seen: 03/22/24 11:01 Interval history: Follow-up for acute kidney injury/acute renal failure on chronic kidney disease. Lower extremity edema as well as renal function continue to improve with IV diuretic therapy; has noted some increased swelling in her right hand/arm; no other acute issues/events voiced at the time of my visit. Exam Narrative: General: elderly but WD/WN female in NAD Heart: normal S1 and S2; no rub Lungs: clear anteriorly; few scant wheezes Abdomen: soft, nontender, nondistended, positive bowel sounds Extremities: no cyanosis or clubbing; 1+ edema Skin: warm and intact Objective Data Vital Signs Vital Signs: Vital Signs Temp Pulse Resp BP Pulse Ox O2 Del Method 03/22/24 11:00 74 03/22/24 08:25 Room Air 03/22/24 08:25 74 96/42 L 93 03/22/24 05:52 98.3 F 85 18 123/80 94 03/22/24 00:34 98.3 F 70 18 95/53 L 92 03/21/24 20:00 97.6 F 77 16 108/55 L 93 03/21/24 21:36 72 Intake/Output Intake/Output: Intake & Output 03/19/24 03/20/24 03/21/24 03/22/24 23:59 23:59 23:59 23:59 Intake Total 1510 1380 Output Total 750 2550 1250 Balance -750 -1040 130 Meds/Results Medications: Active Medications Generic Name Dose Route Start Last Admin Trade Name Freq PRN Reason Stop Dose Admin Acetaminophen 650 mg 03/20/24 12:05 03/21/24 21:39 Acetaminophen
--- NOTE | 2024-03-22 11:01 | PM.PNNEP ---
Progress Note: A&P Assessment and Plan (1) FRANK (acute kidney injury): Code(s): N17.9 - Acute kidney failure, unspecified Status: Acute Assessment and Plan: slow improvement etiology not entirely clear higher creatinine noted in January 2024 as well improvement in spite of IV diuretic therapy possible renal venous hypertension that is being alleviated by more aggressive diuretic therapy? her relative hypotension may have also caused some element of renal hypoperfusion as well follow-up on renal ultrasound and urine studies; CPK okay follow trend of repeat labs and UOP (2) Chronic kidney disease, stage 4 (severe): Code(s): N18.4 - Chronic kidney disease, stage 4 (severe) Status: Chronic Assessment and Plan: baseline creatinine runs ~ 1.7 - 2.2mg/dl based on outpatient evaluation, thought to be secondary to previous HTN and chronic prerenal azotemia from her CHF/cardiomyopathy with ongoing need for diuretic therapy (3) Bilateral lower extremity edema: Code(s): R60.0 - Localized edema Status: Acute Assessment and Plan: doing better presumsed to be due to FRANK and chronic CHF no DVT by LE dopplers no evidence of infection BNP noted to be elevated continue trial of IV diuretics compression stockings as tolerated follow clinical exam (4) Chronic systolic (congestive) heart failure: Code(s): I50.22 - Chronic systolic (congestive) heart failure Status: Acute Assessment and Plan: elevated BNP (but better in comparison to previous values) last Echo noted: EF 35-40%, LV diastolic dysfunction Grade 2 repeat Echo ordered will start IV bumex daily weights and follow I/Os Will continue to follow. Subjective Date/time seen: 03/22/24 11:01 Interval history: Follow-up for acute kidney injury/acute renal failure on chronic kidney disease. Lower extremity edema as well as renal function continue to improve with IV diuretic therapy; has noted some increased swelling in her right hand/arm; no other acute issues/events voiced at the time of my visit. Exam Narrative: General: elderly but WD/WN female in NAD Heart: normal S1 and S2; no rub Lungs: clear anteriorly; few scant wheezes Abdomen: soft, nontender, nondistended, positive bowel sounds Extremities: no cyanosis or clubbing; 1+ edema Skin: warm and intact Objective Data Vital Signs Vital Signs: Vital Signs Temp Pulse Resp BP Pulse Ox O2 Del Method 03/22/24 11:00 74 03/22/24 08:25 Room Air 03/22/24 08:25 74 96/42 L 93 03/22/24 05:52 98.3 F 85 18 123/80 94 03/22/24 00:34 98.3 F 70 18 95/53 L 92 03/21/24 20:00 97.6 F 77 16 108/55 L 93 03/21/24 21:36 72 Intake/Output Intake/Output: Intake & Output 03/19/24 03/20/24 03/21/24 03/22/24 23:59 23:59 23:59 23:59 Intake Total 1510 1380 Output Total 750 2550 1250 Balance -750 -1040 130 Meds/Results Medications: Active Medications Generic Name Dose Route Start Last Admin Trade Name Freq PRN Reason Stop Dose Admin Acetaminophen 650 mg 03/20/24 12:05 03/21/24 21:39 Acetaminophen 325 Mg Tablet PO 650 mg Q4H PRN Administration Mild Pain (1-3) or Fever Albuterol 2 puff 03/20/24 22:31 Albuterol Sulfate (*Sp) Aerosol 1 Puff INHALATION Q4HRT PRN shortness of breath or wheezing Amiodarone HCl 200 mg 03/21/24 09:00 03/22/24 11:20 Amiodarone Hcl 200 Mg Tablet PO 200 mg DAILY MADELINE Administration Aspirin 325 mg 03/21/24 09:00 03/22/24 08:27 Aspirin 325 Mg Tablet PO 325 mg DAILY MADELINE Administration Bumetanide 1.5 mg 03/21/24 09:00 03/22/24 16:57 Bumetanide Inj 2.5 Mg/10 Ml Vial IV PUSH Not Given BID MADELINE Carvedilol 3.125 mg 03/20/24 22:35 03/22/24 11:20 Carvedilol 3.125 Mg Tablet PO 3.125 mg Q12HR MADELINE Administration Levothyroxine Sodium 75 mcg 03/21/24 06:30 03/22/24 05:3
[2024-03-22] MEDS: AMIODARONE HCL 200 MG TABLET PO (11:20)
[2024-03-22] MEDS: carvediloL 3.125 MG TABLET PO ×2 (11:20→23:25)
[2024-03-22] MEDS: SACUBITRIL/VALSARTAN 24-26 MG TABLET 1 TAB PO (20:27)
[2024-03-23] VITALS (9 sets, daily range): BP systolic 90–100; BP diastolic 41–52; PULSE 66–82; RESP 18–20; TEMP 36.4–36.8; O2SAT 90–96
[2024-03-23] MEDS: LEVOTHYROXINE SODIUM 75 MCG TABLET PO (06:10)
[2024-03-23 07:06] LABS: Basophils Percent Auto 0.2 % (0.2-1.2); Hematocrit 32.3 % (37.0-47.0); Hemoglobin 10.6 g/dL (12.0-15.0); Immature Granulocyte Absolute 0.06 K/mm3 (0.00-0.031); Immature Granulocyte Percent A 0.5 % (0-0.5); Lymphocytes Absolute Auto 0.45 K/mm3 (0.9-3.2); Lymphocytes Percent Auto 3.4 % (18.3-44.2); Mean Corpuscular HGB Conc 32.8 g/dl (32-36); Mean Corpuscular Hemoglobin 29.9 pg (26-34); Mean Platelet Volume 11.1 fl (7.4-10.4); Neutrophils Absolute Auto 11.5 K/mm3 (1.3-6.7); Neutrophils Percent Auto 87.9 % (45.5-73.1); Platelet Count Result 176 k/mm3 (150-375); Red Blood Count 3.55 M/mm3 (4.2-5.4); Red Cell Distribution Width 14.4 % (11.5-14.5); White Blood Count 13.1 K/mm3 (4.5-10.0)
[2024-03-23 07:18] LABS: Alanine Aminotransferase 12 U/L (6-35); Albumin Level 3.4 g/dL (3.5-5.1); Alkaline Phosphatase 94 U/L (38-126); Anion Gap 6 mmol/L (4-12); Aspartate Amino Transferase 26 U/L (14-36); Bilirubin,Total 0.9 mg/dL (0.2-1.3); Blood Urea Nitrogen 65 mg/dL (7-17); Calcium 8.9 mg/dL (8.4-10.2); Carbon Dioxide 32 mmol/L (22-30); Chloride 94 mmol/L (98-107); Estimated CRCL calculation 18 ml/min; Estimated Glomerular Filt Rate 19; Glucose 124 mg/dL (65-110); Potassium 3.7 mmol/L (3.4-5.0); Sodium 132 mmol/L (137-145)
--- NOTE | 2024-03-23 08:17 | PM.IMPN ---
Progress Note: A&P Assessment and Plan (1) Bilateral lower extremity edema: Code(s): R60.0 - Localized edema Status: Acute Assessment and Plan: - US of BLE: no DVT - BNP elevated - no signs of infection on exam, does have slight ecchymosis to left ankle. Diffuse tenderness on exam. if no improvement with diuresis, consider XR. - suspect edema secondary to FRANK combined with CHF - see plans below - add knee high compression stockings as tolerated 03/21: Nephrology consulted, IV Bumex has been ordered- 1.5 mg IV BID 03/22- improved 03/23 monitor (2) Chronic systolic (congestive) heart failure: Code(s): I50.22 - Chronic systolic (congestive) heart failure Status: Acute Assessment and Plan: - BNP 6560 (previously 31,200 in 2020) - most recent echo (2021): EF 35-40%, LV diastolic dysfunction Grade 2, see readout for full details. Update echo. - currently on: Lasix 80 mg BID, hold. Given 40 mg and 80 mg of IVP Lasix in ED. - daily weights - monitor I&Os - trend renal function 03/21: Nephrology consulted, IV Bumex has been ordered 03/22 trend renal function. On entresto, coreg, diuretic. unable to start SGLT-2 due to FRANK/CKD 03/23- BLE edema a lot better- bumex was held yesterday due to low BP. coreg, diuretics. (3) Acute kidney injury superimposed on CKD: Code(s): N17.9 - Acute kidney failure, unspecified; N18.9 - Chronic kidney disease, unspecified Status: Acute Assessment and Plan: - creatinine 3.7 (previously 2.8 on 02/06/24) - GFR 12 (previously 17 on 02/06/24) - hx of CKD stage IV - add CK, urine sodium, urine protein/creatinine, urine protein - monitor I&Os - hold Lasix, given 40 + 80 of IVP lasix in ED, on 80 BID daily. resume as renally tolerated. - nephrology consultation, awaiting recs - trend renal function - trend electrolytes, correct as needed - suspect injury secondary to diuresis 03/21: Nephrology consulted, IV Bumex has been ordered 03/22- Cr 2.7, GFR 17, CL wnl, prot/cr ratio-0.21, BP on a low side- bumex was held. nephrology notified per nursing 03/23- Cr 2.50, gfr 19, monitor BP, cr/bun slightly improved. Nephrology is following (4) CAD (coronary artery disease): Qualifiers: Associated angina: without angina Coronary Disease-Associated Artery/Lesion type: [place] artery [place] vs. transplanted heart: [place] heart Qualified Code(s): I25.10 - Atherosclerotic heart disease of [place] coronary artery without angina pectoris Code(s): I25.10 - Atherosclerotic heart disease of [place] coronary artery without angina pectoris Status: Chronic Assessment and Plan: - hx of CABG and NSTEMI - troponin: 0.035 -> 0.029, flat and no active CP - continue home medications: Entresto 24-26 mg BID, asa 325 daily Plan Diet: heart healthy GI Prophylaxis: not currently indicated DVT Prophylaxis: TEDs Lines: peripheral Code Status: DNR Time Spent With Patient Time with patient: 15 - 25 minutes Subjective Date/time seen: 03/23/24 08:17 Interval history: 74-year-old female PMH congestive heart failure and significant chronic kidney disease who was admitted for IV diuresis due to lower extremity swelling limiting her ability to walk.? Patient complains swelling mostly problematic around the left lower leg causing pain.? She is usually on 80 mg of Lasix twice daily oral.? Patient denies chest pain had minimal shortness of breath and leg swelling decreased since admission She was seen per nephrology last night 03/21. 03/22- pt seen and examined today-c/o rt arm swelling and pain- no known injury. leg swelling is a lot better. denies chest pain 03/23- Bp remains on a low side- but pt is asymptomatic. Nephrology was notified yesterday per nursing about BP. Bumex was held yesterday. Pt swelling is improved. Doppler completed on rt arm- no DVT. nephrology is following. renal ultrasound is ordered. Will order PT/OT, continue IS, up tot he chair TID with a
[2024-03-23] MEDS: ASPIRIN 325 MG TABLET PO (08:52)
[2024-03-23] MEDS: AMIODARONE HCL 200 MG TABLET PO (08:52)
[2024-03-23] MEDS: carvediloL 3.125 MG TABLET PO ×2 (08:52→20:35)
[2024-03-23] MEDS: MICONAZOLE NITRATE 2% CREAM 30 GM TUBE 1 APPLIC TOPICAL ×2 (08:53→17:26)
--- NOTE | 2024-03-23 10:03 | P.PNNP_ITS ---
Progress Note: A&P Assessment and Plan (1) FRANK (acute kidney injury): Code(s): N17.9 - Acute kidney failure, unspecified Status: Acute Assessment and Plan: * FRANK on CKD * urine electrolytes non pre renal * CPK okay * Renal ultrasound ordered. * BP was relatively low on admission. * No sign of infection * patient has volume overload. She is getting diuretics and the creatinine is improving. * I agree that renal venous hypertension and relative low blood pressure may be contributing to the higher creatinine. (2) Chronic kidney disease, stage 4 (severe): Code(s): N18.4 - Chronic kidney disease, stage 4 (severe) Status: Chronic Assessment and Plan: * baseline creatinine runs ~ 1.7 - 2.2mg/dl * based on outpatient evaluation, thought to be secondary to previous HTN and chronic prerenal azotemia from her CHF/cardiomyopathy with ongoing need for diuretic therapy (3) Bilateral lower extremity edema: Code(s): R60.0 - Localized edema Status: Acute Assessment and Plan: * doing better * presumsed to be due to FRANK and chronic CHF * no DVT by LE dopplers * no evidence of infection * Echocardiogram looks okay. * Continue diuretics for now as long as creatinine continues to improve. * compression stockings as tolerated * follow clinical exam (4) Chronic systolic (congestive) heart failure: Code(s): I50.22 - Chronic systolic (congestive) heart failure Status: Acute Assessment and Plan: * elevated BNP (but better in comparison to previous values) * last Echo noted: EF 35-40%, LV diastolic dysfunction Grade 2 * repeat Echo is about the same * continue IV bumex * daily weights and follow I/Os (5) Normocytic anemia: Code(s): D64.9 - Anemia, unspecified Status: Acute Assessment and Plan: hemoglobin 10.6. No need for Epogen. Check iron studies Subjective Date/time seen: 03/23/24 10:03 Interval history: Patient feels better. She has a cough. he has been trying to stop smoking Exam Narrative: General: elderly but WD/WN female in NAD Heart: normal S1 and S2; no rub or gallop Lungs: clear anteriorly; coarse upper airway noise breath. Abdomen: soft, nontender, nondistended, positive bowel sounds Extremities: no cyanosis or clubbing; 1+ edema Skin: warm and intact without rash Objective Data Vital Signs Vital Signs: Vital Signs - 24 hr 03/22/24 11:20 03/22/24 11:20 03/22/24 13:55 Temperature 97.5 F L Pulse Rate 74 74 70 Respiratory Rate 16 Blood Pressure 104/52 L Pulse Oximetry 96 03/22/24 16:54 03/22/24 18:45 03/22/24 20:52 Temperature 97.1 F L Pulse Rate 74 76 Respiratory Rate 16 18 Blood Pressure 89/36 L 100/39 L 108/50 L Pulse Oximetry 92 92 03/22/24 23:25 03/22/24 23:57 03/23/24 03:52 Temperature 97.5 F L 97.5 F L Pulse Rate 78 74 72 Respiratory Rate 20 20 Blood Pressure 99/46 L 95/42 L Pulse Oximetry 92 91 03/23/24 07:50 03/23/24 08:52 03/23/24 08:52 Temperature 98.3 F Pulse Rate 75 82 82 Respiratory Rate 18 Blood Pressure 92/52 L Pulse Oximetry 90 Intake/Outpu
--- NOTE | 2024-03-23 10:03 | PM.PNNEP ---
Progress Note: A&P Assessment and Plan (1) FRANK (acute kidney injury): Code(s): N17.9 - Acute kidney failure, unspecified Status: Acute Assessment and Plan: FRANK on CKD urine electrolytes non pre renal CPK okay Renal ultrasound ordered. BP was relatively low on admission. No sign of infection patient has volume overload. She is getting diuretics and the creatinine is improving. I agree that renal venous hypertension and relative low blood pressure may be contributing to the higher creatinine. (2) Chronic kidney disease, stage 4 (severe): Code(s): N18.4 - Chronic kidney disease, stage 4 (severe) Status: Chronic Assessment and Plan: baseline creatinine runs ~ 1.7 - 2.2mg/dl based on outpatient evaluation, thought to be secondary to previous HTN and chronic prerenal azotemia from her CHF/cardiomyopathy with ongoing need for diuretic therapy (3) Bilateral lower extremity edema: Code(s): R60.0 - Localized edema Status: Acute Assessment and Plan: doing better presumsed to be due to FRANK and chronic CHF no DVT by LE dopplers no evidence of infection Echocardiogram looks okay. Continue diuretics for now as long as creatinine continues to improve. compression stockings as tolerated follow clinical exam (4) Chronic systolic (congestive) heart failure: Code(s): I50.22 - Chronic systolic (congestive) heart failure Status: Acute Assessment and Plan: elevated BNP (but better in comparison to previous values) last Echo noted: EF 35-40%, LV diastolic dysfunction Grade 2 repeat Echo is about the same continue IV bumex daily weights and follow I/Os (5) Normocytic anemia: Code(s): D64.9 - Anemia, unspecified Status: Acute Assessment and Plan: hemoglobin 10.6. No need for Epogen. Check iron studies Subjective Date/time seen: 03/23/24 10:03 Interval history: Patient feels better. She has a cough. he has been trying to stop smoking Exam Narrative: General: elderly but WD/WN female in NAD Heart: normal S1 and S2; no rub or gallop Lungs: clear anteriorly; coarse upper airway noise breath. Abdomen: soft, nontender, nondistended, positive bowel sounds Extremities: no cyanosis or clubbing; 1+ edema Skin: warm and intact without rash Objective Data Vital Signs Vital Signs: Vital Signs - 24 hr 03/22/24 11:20 03/22/24 11:20 03/22/24 13:55 Temperature 97.5 F L Pulse Rate 74 74 70 Respiratory Rate 16 Blood Pressure 104/52 L Pulse Oximetry 96 03/22/24 16:54 03/22/24 18:45 03/22/24 20:52 Temperature 97.1 F L Pulse Rate 74 76 Respiratory Rate 16 18 Blood Pressure 89/36 L 100/39 L 108/50 L Pulse Oximetry 92 92 03/22/24 23:25 03/22/24 23:57 03/23/24 03:52 Temperature 97.5 F L 97.5 F L Pulse Rate 78 74 72 Respiratory Rate 20 20 Blood Pressure 99/46 L 95/42 L Pulse Oximetry 92 91 03/23/24 07:50 03/23/24 08:52 03/23/24 08:52 Temperature 98.3 F Pulse Rate 75 82 82 Respiratory Rate 18 Blood Pressure 92/52 L Pulse Oximetry 90 Intake/Output Intake/Output: Intake & Output 03/20/24 03/21/24 03/22/24 03/23/24 23:59 23:59 23:59 23:59 Intake Total 1510 1380 470 Output Total 750 2550 1650 550 Balance -750 -1040 -270 -80 Meds/Results Medications: Active Medications Generic Name Dose Route Start Last Admin Trade Name Freq PRN Reason Stop Dose Admin Acetaminophen 650 mg 03/20/24 12:05 03/21/24 21:39 Acetaminophen 325 Mg Tablet PO 650 mg Q4H PRN Administration Mild Pain (1-3) or Fever Albuterol 2 puff 03/20/24 22:31 Albuterol Sulfate (*Sp) Aerosol 1 Puff INHALATION Q4HRT PRN shortness of breath or wheezing Amiodarone HCl 200 mg 03/21/24 09:00 03/23/24 08:52 Amiodarone Hcl 200 Mg Tablet PO 200 mg DAILY MADELINE Administration Aspirin 325 mg 03/21/24 09:00 03/23/24 0
[2024-03-23 10:16] LABS: Total Protein Urine Random 16 mg/dL; Ur Ttl Prot Creatinine Ratio 0.17 mg/mg (0-0.20); Urea Random Urine 643 MG/DL
[2024-03-23] MEDS: acetaZOLAMIDE TAB 250 MG TABLET PO (10:29)
[2024-03-23 10:35] LABS: Eosinophil Urine None Seen % (None Seen); Urine Eos QC 2nd Tech Confirmed
[2024-03-23] MEDS: MIDODRINE HCL 2.5 MG TABLET 5 MG PO (17:26)
[2024-03-23] MEDS: SACUBITRIL/VALSARTAN 24-26 MG TABLET 1 TAB PO (20:35)
[2024-03-24] VITALS (9 sets, daily range): BP systolic 80–98; BP diastolic 40–60; PULSE 68–90; RESP 16–22; TEMP 36.1–37.2; O2SAT 90–93
[2024-03-24 05:13] LABS: Iron 14 ug/dL (37-170)
[2024-03-24 05:14] LABS: Albumin Level 3.2 g/dL (3.5-5.1); Anion Gap 6 mmol/L (4-12); Blood Urea Nitrogen 74 mg/dL (7-17); Calcium 8.7 mg/dL (8.4-10.2); Carbon Dioxide 32 mmol/L (22-30); Chloride 94 mmol/L (98-107); Estimated CRCL calculation 15 ml/min; Estimated Glomerular Filt Rate 15; Glucose 118 mg/dL (65-110); Phosphorus 4.9 mg/dL (2.5-4.5); Potassium 3.2 mmol/L (3.4-5.0); Sodium 132 mmol/L (137-145)
[2024-03-24 05:22] LABS: Percent Iron Saturation 6 % (20-50)
[2024-03-24] MEDS: LEVOTHYROXINE SODIUM 75 MCG TABLET PO (06:30)
--- NOTE | 2024-03-24 07:09 | PM.IMPN ---
Progress Note: A&P Assessment and Plan (1) Bilateral lower extremity edema: Code(s): R60.0 - Localized edema Status: Acute Assessment and Plan: - US of BLE: no DVT - BNP elevated - no signs of infection on exam, does have slight ecchymosis to left ankle. Diffuse tenderness on exam. if no improvement with diuresis, consider XR. - suspect edema secondary to FRANK combined with CHF - see plans below - add knee high compression stockings as tolerated - holding bumex for now (2) Chronic systolic (congestive) heart failure: Code(s): I50.22 - Chronic systolic (congestive) heart failure Status: Acute Assessment and Plan: - BNP 6560 (previously 31,200 in 2020) - most recent echo (2021): EF 35-40%, LV diastolic dysfunction Grade 2, see readout for full details. Update echo. - currently on: Lasix 80 mg BID, hold. Given 40 mg and 80 mg of IVP Lasix in ED. - daily weights - monitor I&Os - trend renal function 03/21: Nephrology consulted, IV Bumex has been ordered 03/22 trend renal function. On entresto, coreg, diuretic. unable to start SGLT-2 due to FRANK/CKD 03/23- BLE edema a lot better- bumex was held yesterday due to low BP. coreg, diuretics. 03/24 will consult cardiology to ensure CHF treatment is optimized - pt is following with card here (3) Acute kidney injury superimposed on CKD: Code(s): N17.9 - Acute kidney failure, unspecified; N18.9 - Chronic kidney disease, unspecified Status: Acute Assessment and Plan: - creatinine 3.7 (previously 2.8 on 02/06/24) - GFR 12 (previously 17 on 02/06/24) - hx of CKD stage IV - add CK, urine sodium, urine protein/creatinine, urine protein - monitor I&Os - hold Lasix, given 40 + 80 of IVP lasix in ED, on 80 BID daily. resume as renally tolerated. - nephrology consultation, awaiting recs - trend renal function - trend electrolytes, correct as needed - suspect injury secondary to diuresis 03/21: Nephrology consulted, IV Bumex has been ordered 03/22- Cr 2.7, GFR 17, CL wnl, prot/cr ratio-0.21, BP on a low side- bumex was held. nephrology notified per nursing 03/23- Cr 2.50, gfr 19, monitor BP, cr/bun slightly improved. Nephrology is following 03/24 cr3, bun 74, gfr 15 nephrology is following -appreciate recommendations (4) CAD (coronary artery disease): Qualifiers: Associated angina: without angina Coronary Disease-Associated Artery/Lesion type: [place] artery [place] vs. transplanted heart: [place] heart Qualified Code(s): I25.10 - Atherosclerotic heart disease of [place] coronary artery without angina pectoris Code(s): I25.10 - Atherosclerotic heart disease of [place] coronary artery without angina pectoris Status: Chronic Assessment and Plan: - hx of CABG and NSTEMI - troponin: 0.035 -> 0.029, flat and no active CP - continue home medications: Entresto 24-26 mg BID, asa 325 daily (5) MATTIE (iron deficiency anemia): Code(s): D50.9 - Iron deficiency anemia, unspecified Status: Acute Assessment and Plan: -will order venofer IV - home on iron suppliemnt Plan Diet: heart healthy GI Prophylaxis: not currently indicated DVT Prophylaxis: TEDs Lines: peripheral Code Status: DNR Time Spent With Patient Time with patient: less than 15 minutes Subjective Date/time seen: 03/24/24 07:09 Interval history: 74-year-old female PMH congestive heart failure and significant chronic kidney disease who was admitted for IV diuresis due to lower extremity swelling limiting her ability to walk.? Patient complains swelling mostly problematic around the left lower leg causing pain.? She is usually on 80 mg of Lasix twice daily oral.? Patient denies chest pain had minimal shortness of breath and leg swelling decreased since admission She was seen per nephrology last night 03/21. 03/22- pt seen and examined today-c/o rt arm swelling and pain- no known injury. leg swelling is a lot better. denies chest pain 03/23- Bp rem
[2024-03-24] MEDS: MIDODRINE HCL 2.5 MG TABLET 5 MG PO (08:58)
[2024-03-24] MEDS: POTASSIUM CHLORIDE 20 MEQ PACKET (FOR LIQUID) PO ×2 (08:58→17:23)
[2024-03-24] MEDS: ASPIRIN 325 MG TABLET PO (08:58)
[2024-03-24] MEDS: MICONAZOLE NITRATE 2% CREAM 30 GM TUBE 1 APPLIC TOPICAL ×2 (08:59→17:24)
[2024-03-24] MEDS: IRON SUCROSE COMPLEX 200 MG in SODIUM CHLORIDE 0.9% IV 100 ML 220 MG IVPB (09:04)
--- NOTE | 2024-03-24 09:37 | PM.PNNEP ---
Progress Note: A&P Assessment and Plan (1) FRANK (acute kidney injury): Code(s): N17.9 - Acute kidney failure, unspecified Status: Acute Assessment and Plan: FRANK on CKD urine electrolytes non pre renal CPK okay Renal ultrasound ordered. BP was relatively low on admission. this was lower yesterday as well. Midodrine was ordered. Can we hold the Entresto? No sign of infection patient has volume overload. She has improved somewhat. Swelling is a little better. O2 sat is 93% on room air now. The creatinine eva overnight. This could be related to the diuretics but could also be related to the low blood pressure. Hold diuretics. Treat with midodrine. Consider reducing or stopping Entresto if okay with Cardiology. (2) Chronic kidney disease, stage 4 (severe): Code(s): N18.4 - Chronic kidney disease, stage 4 (severe) Status: Chronic Assessment and Plan: baseline creatinine runs ~ 1.7 - 2.2mg/dl based on outpatient evaluation, thought to be secondary to previous HTN and chronic prerenal azotemia from her CHF/cardiomyopathy with ongoing need for diuretic therapy (3) Bilateral lower extremity edema: Code(s): R60.0 - Localized edema Status: Acute Assessment and Plan: doing better presumsed to be due to FRANK and chronic CHF no DVT by LE dopplers no evidence of infection Holding diuretics because of her higher creatinine. (4) Chronic systolic (congestive) heart failure: Code(s): I50.22 - Chronic systolic (congestive) heart failure Status: Acute Assessment and Plan: elevated BNP (but better in comparison to previous values) last Echo noted: EF 35-40%, LV diastolic dysfunction Grade 2 repeat Echo is about the same Hold diuretics for now (5) Normocytic anemia: Code(s): D64.9 - Anemia, unspecified Status: Acute Assessment and Plan: hemoglobin 10.6 yesterday. No need for Epogen. T sat was low. Iron sucrose given. Subjective Date/time seen: 03/24/24 09:37 Interval history: Monica feels a little bit better today. Still has somewhat of a cough. Eating pretty well. She has pain in her right hand and wrist. She will talk with hospitalist Exam Narrative: General: elderly but WD/WN female in NAD Heart: normal S1 and S2; no rub or gallop Lungs: clear anteriorly; coarse upper airway noise breath. Abdomen: soft, nontender, nondistended, positive bowel sounds Extremities: no cyanosis or clubbing; 1+ edema. Painful and stiff right hand Skin: warm and intact without rash Objective Data Vital Signs Vital Signs: Vital Signs - 24 hr 03/23/24 13:11 03/23/24 16:15 03/23/24 17:28 Temperature 97.5 F L 97.6 F Pulse Rate 71 70 72 Respiratory Rate 20 20 Blood Pressure 90/42 L 90/48 L 94/41 L Pulse Oximetry 96 93 Oxygen Delivery 03/23/24 20:35 03/23/24 20:51 03/23/24 20:00 Temperature 97.6 F Pulse Rate 72 67 Respiratory Rate 20 Blood Pressure 100/50 L Pulse Oximetry 91 Oxygen Delivery Room Air 03/23/24 23:49 03/24/24 04:00 03/24/24 08:55 Temperature 97.9 F 99 F Pulse Rate 66 68 Respiratory Rate 20 20 Blood Pressure 92/50 L 90/48 L 80/40 L Pulse Oximetry 90 93 Oxygen Delivery 03/24/24 08:55 Temperature Pulse Rate Respiratory Rate Blood Pressure Pulse Oximetry Oxygen Delivery Room Air Intake/Output Intake/Output: Intake & Output 03/21/24 03/22/24 03/23/24 03/24/24 23:59 23:59 23:59 23:59 Intake Total 1510 1380 1380 200 Output Total 2550 1650 750 250 Balance -1040 -270 630 -50 Meds/Results Medications: Active Medications Generic Name Dose Route Start Last Admin Trade Name Iraj PRN Reason Stop Dose Admin Acetaminophen 650 mg 03/20/24 12:05 03/21/24 21:39 Acetaminophen 325 Mg Tablet PO 650 mg Q4H PRN Administration Mild Pain (1-3) or Fever Albuterol 2 puff 03/20/24 22:3
--- NOTE | 2024-03-24 12:10 | PM.CNCAR ---
Assessment and Plan Assessment and plan (1) CAD (coronary artery disease): Qualifiers: Coronary Disease-Associated Artery/Lesion type: [place] artery [place] vs. transplanted heart: [place] heart Associated angina: without angina Qualified Code(s): I25.10 - Atherosclerotic heart disease of [place] coronary artery without angina pectoris Code(s): I25.10 - Atherosclerotic heart disease of [place] coronary artery without angina pectoris Status: Chronic (2) History of mitral valve replacement with bioprosthetic valve: Onset Date: 04/2021 Code(s): Z95.3 - Presence of xenogenic heart valve Status: Acute (3) Cardiomyopathy: Qualifiers: Cardiomyopathy type: ischemic Qualified Code(s): I25.5 - Ischemic cardiomyopathy Code(s): I42.9 - Cardiomyopathy, unspecified Status: Acute Plan This is a 74-year-old lady with ischemic heart disease, valvular heart disease and a prior history of AFib. She has been managed with guideline directed medical therapy as detailed above and up until now has recently been stable for the last couple of years or so. She comes into the hospital with some increasing lower extremity edema which is being treated with intravenous bumetanide. In this setting her blood pressure has been soft although asymptomatic and she has been started on midodrine. There are concerns in the chart as to whether Entresto should be reduced/or discontinued. Hemodynamically it is difficult to prescribe both vasoconstrictors and vasodilators at the same time. At this moment I am going to his stop/put a hold on both the Entresto and the midodrine. Midodrine would be REALLY BAD for her hemodynamic status/cardiac output/ejection fraction and I would prefer not to prescribe this agent particularly for asymptomatic hypotension. Hopefully her renal function can improve and eventually her Entresto can be resumed at least at a lower dose as her left ventricular ejection fraction MARKEDLY IMPROVED in response to the this agent. Will follow her with you while she is in the hospital this is clearly a very challenging/tenuous situation trying to manage her volume status, ischemic and valvular heart disease with LV dysfunction as well as preserve renal function as much as we can Harish Gupta MD [facility] History of Present Illness History of Present Illness Consult date/time: 03/24/24 12:10 Reason For Visit: nstemi,heart failure exacerbation requiring diures Narrative: This is a 74-year-old woman who is well known to me with coronary disease, valvular heart disease who is being seen at the request of the hospitalist because of hypotension. She was admitted here 4 days ago with complaints of increasing lower extremity edema and has been treated with intravenous bumetanide with some improvement in her edema according to her family and who are in the room at this time. The patient was not reporting significant shortness of breath or any other cardiac symptomatology. I saw her is recently in the office as 02/22/2024 at which time she was stable and had minimal pretibial edema on exam. This is a lady who has a history of coronary disease and valvular disease. She underwent interventional revascularization of her OM circumflex branch in January of 2020 0 5. She initially did very well but then developed symptoms of atrial fibrillation that was noticed as an outpatient. At that time she was anticoagulated but this resulted in significant GI bleeding, melanotic stool and hospitalization. Her anticoagulation was of course stopped at that time. She then developed symptoms of severe shortness of breath and was found by echo to have a relatively severe mitral regurgitation with posterior mitral valve leaflet prolapse and significant multivessel coronary disease. She was referred down to [facility] where she received an IRAIDA graft to the LAD and a vein graft to the ramus intermedius she also received
[2024-03-24] MEDS: ALBUMIN HUMAN 25% 25 GM/100 ML 100 ML IVPB (14:11)
[2024-03-24] MEDS: SODIUM CHLORIDE 0.9% IV 250 ML 100 ML IV CONT (16:26)
[2024-03-24 21:22] LABS: Appearance Urine Cloudy (Clear); Bacteria Urine 4+ /hpf; Bilirubin Urine Negative (Negative); Blood Urine Negative (Negative); Color Urine Yellow (Yellow); Glucose Urine UA Negative (Negative); Ketones Urine Negative (Negative); Leukocyte Esterase Ur Trace LEU/UL (Negative); Need Manual Microscopic Reviewed; Nitrate Urine Negative (Negative); Protein Urine Negative (Negative); RBC Urine 0-2 /hpf (0-2); Specific Grav Ur 1.013 (1.001-1.035); Squamous Epithelial Cell Urine None Seen /hpf (Few); pH Urine 6.5 (5.0-9.0)
[2024-03-24 21:24] LABS: Add Urine Microscopic? YES
[2024-03-25] VITALS (7 sets, daily range): BP systolic 90–100; BP diastolic 35–56; PULSE 64–72; RESP 14–16; TEMP 36.4–36.7; O2SAT 91–95
[2024-03-25 05:22] LABS: Hematocrit 29.7 % (37.0-47.0); Hemoglobin 9.6 g/dL (12.0-15.0); Mean Corpuscular HGB Conc 32.3 g/dl (32-36); Mean Corpuscular Hemoglobin 29.7 pg (26-34); Mean Platelet Volume 12.1 fl (7.4-10.4); Platelet Count Result 217 k/mm3 (150-375); Red Blood Count 3.23 M/mm3 (4.2-5.4); Red Cell Distribution Width 14.2 % (11.5-14.5)
[2024-03-25 05:39] LABS: Albumin Level 3.2 g/dL (3.5-5.1); Anion Gap 6 mmol/L (4-12); Blood Urea Nitrogen 75 mg/dL (7-17); Calcium 8.7 mg/dL (8.4-10.2); Carbon Dioxide 31 mmol/L (22-30); Chloride 98 mmol/L (98-107); Estimated CRCL calculation 17 ml/min; Estimated Glomerular Filt Rate 18; Glucose 106 mg/dL (65-110); Phosphorus 4.1 mg/dL (2.5-4.5); Potassium 3.2 mmol/L (3.4-5.0); Sodium 135 mmol/L (137-145)
[2024-03-25] MEDS: LEVOTHYROXINE SODIUM 75 MCG TABLET PO (05:59)
--- NOTE | 2024-03-25 07:12 | PM.IMPN ---
Progress Note: A&P Assessment and Plan (1) Bilateral lower extremity edema: Code(s): R60.0 - Localized edema Status: Acute Assessment and Plan: - US of BLE: no DVT - BNP elevated - no signs of infection on exam, does have slight ecchymosis to left ankle. Diffuse tenderness on exam. if no improvement with diuresis, consider XR. - suspect edema secondary to FRANK combined with CHF - see plans below - add knee high compression stockings as tolerated - holding bumex for now - maurisio wrap-elevation -will need diuretic restarted- waiting nephrology recommendations (2) Chronic systolic (congestive) heart failure: Code(s): I50.22 - Chronic systolic (congestive) heart failure Status: Acute Assessment and Plan: - BNP 6560 (previously 31,200 in 2020) - most recent echo (2021): EF 35-40%, LV diastolic dysfunction Grade 2, see readout for full details. Update echo. - currently on: Lasix 80 mg BID, hold. Given 40 mg and 80 mg of IVP Lasix in ED. - daily weights - monitor I&Os - trend renal function 03/21: Nephrology consulted, IV Bumex has been ordered 03/22 trend renal function. On entresto, coreg, diuretic. unable to start SGLT-2 due to FRANK/CKD 03/23- BLE edema a lot better- bumex was held yesterday due to low BP. coreg, diuretics. 03/24 will consult cardiology to ensure CHF treatment is optimized - pt is following with card here 03/25- BP improved to baseline (usually in 90's systolic). Cards following- appreciate recommendations-restarting Entresto at 12/13 mg twice daily, continuing coreg 3.125 ng bid, amiodarone, asa 5 (3) Acute kidney injury superimposed on CKD: Code(s): N17.9 - Acute kidney failure, unspecified; N18.9 - Chronic kidney disease, unspecified Status: Acute Assessment and Plan: - creatinine 3.7 (previously 2.8 on 02/06/24) - GFR 12 (previously 17 on 02/06/24) - hx of CKD stage IV - add CK, urine sodium, urine protein/creatinine, urine protein - monitor I&Os - hold Lasix, given 40 + 80 of IVP lasix in ED, on 80 BID daily. resume as renally tolerated. - nephrology consultation, awaiting recs - trend renal function - trend electrolytes, correct as needed - suspect injury secondary to diuresis 03/21: Nephrology consulted, IV Bumex has been ordered 03/22- Cr 2.7, GFR 17, CL wnl, prot/cr ratio-0.21, BP on a low side- bumex was held. nephrology notified per nursing 03/23- Cr 2.50, gfr 19, monitor BP, cr/bun slightly improved. Nephrology is following 03/24 cr3, bun 74, gfr 15 nephrology is following -appreciate recommendations 03/25- received 250 ml iv fluids yesterday- BP improved today, Cr improved. Holding diuretics for now. Nephrology is following. will need to revisit diuretics therapy prior to discharge to optimize treatment. (4) CAD (coronary artery disease): Qualifiers: Associated angina: without angina Coronary Disease-Associated Artery/Lesion type: [place] artery [place] vs. transplanted heart: [place] heart Qualified Code(s): I25.10 - Atherosclerotic heart disease of [place] coronary artery without angina pectoris Code(s): I25.10 - Atherosclerotic heart disease of [place] coronary artery without angina pectoris Status: Chronic Assessment and Plan: - hx of CABG and NSTEMI - troponin: 0.035 -> 0.029, flat and no active CP -asa, not on statin- will address that (5) MATTIE (iron deficiency anemia): Code(s): D50.9 - Iron deficiency anemia, unspecified Status: Acute Assessment and Plan: -will order venofer IV - home on iron suppliemnt Plan Diet: heart healthy GI Prophylaxis: not currently indicated DVT Prophylaxis: TEDs Lines: peripheral Code Status: DNR Time Spent With Patient Time with patient: less than 15 minutes Subjective Date/time seen: 03/25/24 07:12 Interval history: 74-year-old female PMH congestive heart failure and significant chronic kidney disease who was admitted for IV diuresis due to lower extremity
[2024-03-25] MEDS: POTASSIUM CHLORIDE 20 MEQ ER TABLET PO (09:30)
[2024-03-25] MEDS: ASPIRIN 325 MG TABLET PO (09:30)
[2024-03-25] MEDS: AMIODARONE HCL 200 MG TABLET PO (09:30)
[2024-03-25] MEDS: MICONAZOLE NITRATE 2% CREAM 30 GM TUBE 1 APPLIC TOPICAL ×2 (09:30→18:07)
--- NOTE | 2024-03-25 10:55 | PM.PNCARD ---
Progress Note: A&P Assessment and Plan (1) Cardiomyopathy: Qualifiers: Cardiomyopathy type: ischemic Qualified Code(s): I25.5 - Ischemic cardiomyopathy Code(s): I42.9 - Cardiomyopathy, unspecified Status: Acute (2) History of mitral valve replacement with bioprosthetic valve: Onset Date: 04/2021 Code(s): Z95.3 - Presence of xenogenic heart valve Status: Acute (3) Chronic kidney disease, stage 4 (severe): Code(s): N18.4 - Chronic kidney disease, stage 4 (severe) Status: Chronic Plan 74-year-old lady with: Ischemic heart disease valvular heart disease status post surgical revascularization, mitral valve replacement and tricuspid valve repair. She also unfortunately has chronic kidney disease. Her renal function looks better are on this morning's labs. Will resume lower dose of Entresto at 12/13 mg twice daily. As I stated in my note yesterday she had a benefited tremendously from this agent over the last couple of years. He will need to be placed back on some diuretic as well. Her baseline looks like was furosemide 80 mg twice daily. This is a very challenging/tenuous medical titration effort in hopes of treating her heart failure as well as preserving renal function as much as we can Harish Gupta MD [facility] Subjective Date/time seen: date of service:03/25/24 10:55 Interval history: Follow-up visit in this complicated 74-year-old lady with ischemic heart disease, valvular heart disease, history of atrial fibrillation and reduced left ventricular function. She feels better today and is not reporting symptoms of dyspnea. Appears to be in good spirits. Exam Const: General: comfortable and no acute distress HENMT: Mouth: Yes moist mucous membranes Eyes: Sclera: sclerae normal Neck: Neck: supple Resp: Effort & Inspection: normal respiratory effort Other: Patient has some scattered central rhonchi and a few basilar Inspiratory rales. Cardio: Rate: regular rate Rhythm: regular rhythm GI: GI Palp: Yes Soft to palpation Auscultation: normal bowel sounds Skin: General skin exam: normal color Neuro: Other: Alert and oriented Extrem: Other: trivial peripheral edema Objective Data Vital Signs Vital Signs: Vital Signs - 24 hr 03/24/24 11:48 03/24/24 13:44 03/24/24 15:31 Temperature 37.2 C 36.3 C L Pulse Rate 69 90 Respiratory Rate 22 H 18 Blood Pressure 98/44 L 82/42 L Pulse Oximetry 93 90 Oxygen Delivery Room Air Fraction of Inspired Oxygen 03/24/24 16:24 03/24/24 19:45 03/24/24 20:16 Temperature 36.1 C L Pulse Rate 71 71 Respiratory Rate 16 Blood Pressure 88/48 L 85/60 L Pulse Oximetry 93 Oxygen Delivery Fraction of Inspired Oxygen 03/24/24 20:30 03/25/24 03:54 03/25/24 08:16 Temperature 36.7 C Pulse Rate 71 Respiratory Rate 16 Blood Pressure 90/52 L Pulse Oximetry 91 92 Oxygen Delivery Room Air Room Air Fraction of Inspired Oxygen 03/25/24 09:30 03/25/24 09:30 03/25/24 09:42 Temperature 36.4 C Pulse Rate 72 72 Respiratory Rate 14 Blood Pressure 100/56 L Pulse Oximetry 93 Oxygen Delivery Room Air Fraction of Inspired Oxygen Intake/Output Intake/Output: Intake & Output 03/22/24 03/23/24 03/24/24 03/25/24 23:59 23:59 23:59 23:59 Intake Total 1380 1380 940 360 Output Total 1650 750 800 350 Balance -270 630 140 10 Meds/Results Medications: Active Medications Generic Name Dose Route Start Last Admin Trade Name Freq PRN Reason Stop Dose Admin Acetaminophen 650 mg 03/20/24 12:05 03/21/24 21:39 Acetaminophen 325 Mg Tablet PO 650 mg Q4H PRN Administration Mild Pain (1-3) or Fever Albuterol 2 puff 03/20/24 22:31 Albuterol Sulfate (*Sp) Aerosol 1 Puff INHALATION Q4HRT PRN shortness of breath or wheezing Amiodarone HCl 200 mg 03/21/24 09:00 03/25/24 09:30 Amiodarone Hcl
--- NOTE | 2024-03-25 11:02 | P.PNNP_ITS ---
Progress Note: A&P Assessment and Plan (1) FRANK (acute kidney injury): Code(s): N17.9 - Acute kidney failure, unspecified Status: Acute Assessment and Plan: * evaluation noted * urine electrolytes non pre-renal * CPK okay * renal ultrasound unremarkable * no evidence of infection * suspect fluctuating creatinine due to episodes of low BP and known cardiac disease * creatinine was up to 3.0mg/dl on 03/24 but better today at 2.6mg/dl with holding diuretics/entresto and s/p IV albumin + midodrine * follow trend of repeat labs and UOP * this maybe a situation where we have to accept a higher creatinine to mainta in her volume/fluid status.... (2) Chronic kidney disease, stage 4 (severe): Code(s): N18.4 - Chronic kidney disease, stage 4 (severe) Status: Chronic Assessment and Plan: * baseline creatinine runs ~ 1.7 - 2.2mg/dl * based on outpatient evaluation, thought to be secondary to previous HTN and chronic prerenal azotemia from her CHF/cardiomyopathy with ongoing need for diuretic therapy (3) Bilateral lower extremity edema: Code(s): R60.0 - Localized edema Status: Acute Assessment and Plan: * doing better * presumsed to be due to FRANK and chronic CHF * no DVT by LE dopplers * no evidence of infection * diuretics on hold because of her higher creatinine on 03/24 (4) Chronic systolic (congestive) heart failure: Code(s): I50.22 - Chronic systolic (congestive) heart failure Status: Acute Assessment and Plan: * elevated BNP (but better in comparison to previous values) * last Echo noted: EF 35-40%, LV diastolic dysfunction Grade 2 * repeat Echo is about the same * tentatively plan to restart diuretics tomorrow -- seemed to do better with bumex so maybe 1.5mg bumex qday (5) Normocytic anemia: Code(s): D64.9 - Anemia, unspecified Status: Acute Assessment and Plan: * due to underlying CKD and iron deficiency * no need for IGNACIA therapy * s/p IV venofer * follow H/H Will continue to follow. Subjective Date/time seen: 03/25/24 11:02 Interval history: Follow-up for acute kidney injury/acute renal failure on chronic kidney disease. Chart reviewed since last seem -- fluctuating creatinine in association with relative hypotension that appears better s/p IV albumin, IVF bolus, and holding diuretics + Entresto; resumed on lower dose Entresto today; no reported shortnes s of breath noted; LE swelling/edema better if not stable at this time. Exam Narrative: General: elderly but WD/WN female in NAD Heart: normal S1 and S2; no rub Lungs: clear anteriorly; coarse upper airway noise noted Abdomen: soft, nontender, nondistended, positive bowel sounds Extremities: no cyanosis or clubbing; 1+ edema Skin: no nodules Objective Data Vital Signs Vital Signs: Vital Signs Temp Pulse Resp BP Pulse Ox O2 Del Method FiO2 03/25/24 11:00 Room Air 03/25/24 09:42 97.6 F 72 14 100/56 L 93 03/25/24 09:30 Room Air 03/25/24 09:30 72 03/25/24 08:16 92 Room Air 21 03/25/24 03:54 98.1 F 71 16 90/52 L 91 03/24/24 20:30 Room Air 03/24/24 20:16 71 03/24/24 19:45 97 F L 71 16 85/60 L 93 03/24/24 16:24 88/48 L 03/24/24 15:31 Room Air
--- NOTE | 2024-03-25 11:02 | PM.PNNEP ---
Progress Note: A&P Assessment and Plan (1) FRANK (acute kidney injury): Code(s): N17.9 - Acute kidney failure, unspecified Status: Acute Assessment and Plan: evaluation noted urine electrolytes non pre-renal CPK okay renal ultrasound unremarkable no evidence of infection suspect fluctuating creatinine due to episodes of low BP and known cardiac disease creatinine was up to 3.0mg/dl on 03/24 but better today at 2.6mg/dl with holding diuretics/entresto and s/p IV albumin + midodrine follow trend of repeat labs and UOP this maybe a situation where we have to accept a higher creatinine to maintain her volume/fluid status.... (2) Chronic kidney disease, stage 4 (severe): Code(s): N18.4 - Chronic kidney disease, stage 4 (severe) Status: Chronic Assessment and Plan: baseline creatinine runs ~ 1.7 - 2.2mg/dl based on outpatient evaluation, thought to be secondary to previous HTN and chronic prerenal azotemia from her CHF/cardiomyopathy with ongoing need for diuretic therapy (3) Bilateral lower extremity edema: Code(s): R60.0 - Localized edema Status: Acute Assessment and Plan: doing better presumsed to be due to FRANK and chronic CHF no DVT by LE dopplers no evidence of infection diuretics on hold because of her higher creatinine on 03/24 (4) Chronic systolic (congestive) heart failure: Code(s): I50.22 - Chronic systolic (congestive) heart failure Status: Acute Assessment and Plan: elevated BNP (but better in comparison to previous values) last Echo noted: EF 35-40%, LV diastolic dysfunction Grade 2 repeat Echo is about the same tentatively plan to restart diuretics tomorrow -- seemed to do better with bumex so maybe 1.5mg bumex qday (5) Normocytic anemia: Code(s): D64.9 - Anemia, unspecified Status: Acute Assessment and Plan: due to underlying CKD and iron deficiency no need for IGNACIA therapy s/p IV venofer follow H/H Will continue to follow. Subjective Date/time seen: 03/25/24 11:02 Interval history: Follow-up for acute kidney injury/acute renal failure on chronic kidney disease. Chart reviewed since last seem -- fluctuating creatinine in association with relative hypotension that appears better s/p IV albumin, IVF bolus, and holding diuretics + Entresto; resumed on lower dose Entresto today; no reported shortness of breath noted; LE swelling/edema better if not stable at this time. Exam Narrative: General: elderly but WD/WN female in NAD Heart: normal S1 and S2; no rub Lungs: clear anteriorly; coarse upper airway noise noted Abdomen: soft, nontender, nondistended, positive bowel sounds Extremities: no cyanosis or clubbing; 1+ edema Skin: no nodules Objective Data Vital Signs Vital Signs: Vital Signs Temp Pulse Resp BP Pulse Ox O2 Del Method FiO2 03/25/24 11:00 Room Air 03/25/24 09:42 97.6 F 72 14 100/56 L 93 03/25/24 09:30 Room Air 03/25/24 09:30 72 03/25/24 08:16 92 Room Air 21 03/25/24 03:54 98.1 F 71 16 90/52 L 91 03/24/24 20:30 Room Air 03/24/24 20:16 71 03/24/24 19:45 97 F L 71 16 85/60 L 93 03/24/24 16:24 88/48 L 03/24/24 15:31 Room Air Intake/Output Intake/Output: Intake & Output 03/22/24 03/23/24 03/24/24 03/25/24 23:59 23:59 23:59 23:59 Intake Total 1380 1380 940 600 Output Total 1650 750 800 350 Balance -270 630 140 250 Meds/Results Medications: Active Medications Generic Name Dose Route Start Last Admin Trade Name Freq PRN Reason Stop Dose Admin Acetaminophen 650 mg 03/20/24 12:05 03/21/24 21:39 Acetaminophen 325 Mg Tablet PO 650 mg Q4H PRN Administration Mild Pain (1-3) or Fever Albuterol 2 puff 03/20/24 22:31 Albuterol Sulfate (*Sp) Aerosol 1 Puff INHALATION Q4HRT PRN shortness of breath or wheezing Amioda
[2024-03-25] MEDS: SACUBITRIL/VALSARTAN 12-13 MG TABLET 1 TAB PO ×2 (11:06→20:41)
[2024-03-25] MEDS: carvediloL 3.125 MG TABLET PO ×2 (11:06→20:40)
[2024-03-25] MEDS: ACETAMINOPHEN 325 MG TABLET 650 MG PO (20:40)
[2024-03-26] VITALS (10 sets, daily range): BP systolic 90–106; BP diastolic 40–50; PULSE 64–77; RESP 14–18; TEMP 36.4–37; O2SAT 90–98; BMI 10.0
[2024-03-26 06:02] LABS: Basophils Percent Auto 0.3 % (0.2-1.2); Eosinophils Percent Auto 0.3 % (0-4.4); Hematocrit 29.9 % (37.0-47.0); Hemoglobin 9.6 g/dL (12.0-15.0); Immature Granulocyte Absolute 0.03 K/mm3 (0.00-0.031); Immature Granulocyte Percent A 0.4 % (0-0.5); Lymphocytes Absolute Auto 0.38 K/mm3 (0.9-3.2); Mean Corpuscular HGB Conc 32.1 g/dl (32-36); Mean Corpuscular Hemoglobin 29.6 pg (26-34); Mean Corpuscular Volume 92.3 fl (80-100); Mean Platelet Volume 11.9 fl (7.4-10.4); Monocytes Absolute Auto 0.9 K/mm3 (0.1-0.6); Monocytes Percent Auto 11.4 % (2.6-8.5); Neutrophils Absolute Auto 6.3 K/mm3 (1.3-6.7); Neutrophils Percent Auto 82.6 % (45.5-73.1); Platelet Count Result 250 k/mm3 (150-375); Red Blood Count 3.24 M/mm3 (4.2-5.4); Red Cell Distribution Width 14.4 % (11.5-14.5); White Blood Count 7.7 K/mm3 (4.5-10.0)
[2024-03-26 06:14] LABS: Alanine Aminotransferase 11 U/L (6-35); Alkaline Phosphatase 87 U/L (38-126); Anion Gap 4 mmol/L (4-12); Aspartate Amino Transferase 24 U/L (14-36); Bilirubin,Total 0.6 mg/dL (0.2-1.3); Blood Urea Nitrogen 73 mg/dL (7-17); Calcium 8.8 mg/dL (8.4-10.2); Carbon Dioxide 31 mmol/L (22-30); Chloride 100 mmol/L (98-107); Estimated CRCL calculation 18 ml/min; Estimated Glomerular Filt Rate 20; Glucose 112 mg/dL (65-110); Potassium 3.4 mmol/L (3.4-5.0); Sodium 135 mmol/L (137-145)
[2024-03-26] MEDS: LEVOTHYROXINE SODIUM 75 MCG TABLET PO (06:15)
--- NOTE | 2024-03-26 07:15 | PM.IMPN ---
Progress Note: A&P Assessment and Plan (1) Bilateral lower extremity edema: Code(s): R60.0 - Localized edema Status: Acute Assessment and Plan: - US of BLE: no DVT - BNP elevated - no signs of infection on exam, does have slight ecchymosis to left ankle. Diffuse tenderness on exam. if no improvement with diuresis, consider XR. - suspect edema secondary to FRANK combined with CHF - see plans below - add knee high compression stockings as tolerated - holding bumex for now - maurisio wrap-elevation -will need diuretic restarted- waiting nephrology recommendations- bumex 1.5 mg po daily-restarted today per nephrology (2) Chronic systolic (congestive) heart failure: Code(s): I50.22 - Chronic systolic (congestive) heart failure Status: Acute Assessment and Plan: - BNP 6560 (previously 31,200 in 2020) - most recent echo (2021): EF 35-40%, LV diastolic dysfunction Grade 2, see readout for full details. Update echo. - currently on: Lasix 80 mg BID, hold. Given 40 mg and 80 mg of IVP Lasix in ED. - daily weights - monitor I&Os - trend renal function 03/21: Nephrology consulted, IV Bumex has been ordered 03/22 trend renal function. On entresto, coreg, diuretic. unable to start SGLT-2 due to FRANK/CKD 03/23- BLE edema a lot better- bumex was held yesterday due to low BP. coreg, diuretics. 03/24 will consult cardiology to ensure CHF treatment is optimized - pt is following with card here 03/25- BP improved to baseline (usually in 90's systolic). Cards following- appreciate recommendations-restarting Entresto at 12/13 mg twice daily, continuing coreg 3.125 ng bid, amiodarone, asa 03/26- entresto restarted, coreg- BP stable, Cr/BUN stable-continue. bumex 1.5 mg po daily-restarted today per nephrology (3) Acute kidney injury superimposed on CKD: Code(s): N17.9 - Acute kidney failure, unspecified; N18.9 - Chronic kidney disease, unspecified Status: Acute Assessment and Plan: - creatinine 3.7 (previously 2.8 on 02/06/24) - GFR 12 (previously 17 on 02/06/24) - hx of CKD stage IV - add CK, urine sodium, urine protein/creatinine, urine protein - monitor I&Os - hold Lasix, given 40 + 80 of IVP lasix in ED, on 80 BID daily. resume as renally tolerated. - nephrology consultation, awaiting recs - trend renal function - trend electrolytes, correct as needed - suspect injury secondary to diuresis 03/21: Nephrology consulted, IV Bumex has been ordered 03/22- Cr 2.7, GFR 17, CL wnl, prot/cr ratio-0.21, BP on a low side- bumex was held. nephrology notified per nursing 03/23- Cr 2.50, gfr 19, monitor BP, cr/bun slightly improved. Nephrology is following 03/24 cr3, bun 74, gfr 15 nephrology is following -appreciate recommendations 03/25- received 250 ml iv fluids yesterday- BP improved today, Cr improved. Holding diuretics for now. Nephrology is following. will need to revisit diuretics therapy prior to discharge to optimize treatment. 03/26- see above cr 2.40 today. bumex 1.5 mg po daily-restarted today per nephrology (4) CAD (coronary artery disease): Qualifiers: Associated angina: without angina Coronary Disease-Associated Artery/Lesion type: [place] artery [place] vs. transplanted heart: [place] heart Qualified Code(s): I25.10 - Atherosclerotic heart disease of [place] coronary artery without angina pectoris Code(s): I25.10 - Atherosclerotic heart disease of [place] coronary artery without angina pectoris Status: Chronic Assessment and Plan: - hx of CABG and NSTEMI - troponin: 0.035 -> 0.029, flat and no active CP -asa, not on statin- will address that-discussed in details 03/25- pt is hesitant to restart statin (was on it before). (5) MATTIE (iron deficiency anemia): Code(s): D50.9 - Iron deficiency anemia, unspecified Status: Acute Assessment and Plan: -will order venofer IV - home on iron suppliemnt Plan Diet: heart healthy GI Prophylaxis: not currently indicated
--- NOTE | 2024-03-26 09:15 | P.PNNP_ITS ---
Progress Note: A&P Assessment and Plan (1) FRANK (acute kidney injury): Code(s): N17.9 - Acute kidney failure, unspecified Status: Acute Assessment and Plan: * fluctuating since admission * evaluation noted * urine electrolytes non pre-renal * CPK okay * renal ultrasound unremarkable * no evidence of infection initially -- UTI present now * suspect fluctuating creatinine due to episodes of low BP and known cardiac disease * creatinine was up to 3.0mg/dl on 03/24 but better currently with holding diuretics/entresto and s/p IV albumin + midodrine * restart diuretics today * follow trend of repeat labs and UOP * this maybe a situation where we have to accept a higher creatinine to maintain her volume/fluid status.... (2) Chronic kidney disease, stage 4 (severe): Code(s): N18.4 - Chronic kidney disease, stage 4 (severe) Status: Chronic Assessment and Plan: * baseline creatinine runs ~ 1.7 - 2.2mg/dl * based on outpatient evaluation, thought to be secondary to previous HTN and chronic prerenal azotemia from her CHF/cardiomyopathy with ongoing need for diuretic therapy (3) Bilateral lower extremity edema: Code(s): R60.0 - Localized edema Status: Acute Assessment and Plan: * doing better * presumsed to be due to FRANK and chronic CHF * no DVT by LE dopplers * no evidence of infection * resumed on diuretics today (4) Chronic systolic (congestive) heart failure: Code(s): I50.22 - Chronic systolic (congestive) heart failure Status: Acute Assessment and Plan: * elevated BNP (but better in comparison to previous values) * last Echo noted: EF 35-40%, LV diastolic dysfunction Grade 2 * repeat Echo is about the same * restart bumex 1.5mg po qday today (5) Urinary tract infection: Code(s): N39.0 - Urinary tract infection, site not specified Status: Acute Assessment and Plan: * UA done on 03/24 suggestive * urine culture with GNB * start antibiotics?? (6) Normocytic anemia: Code(s): D64.9 - Anemia, unspecified Status: Acute Assessment and Plan: * due to underlying CKD and iron deficiency * no need for IGNACIA therapy * s/p IV venofer * follow H/H Will continue to follow. Subjective Date/time seen: 03/26/24 09:15 Interval history: Follow-up for acute kidney injury/acute renal failure on chronic kidney disease. Blood pressure remains relatively stable at this time; renal function a bit better as well by AM labs; LE edema persists (but diuretics were on hold given previous hypotension -- restarted today); no apparent distress voiced; no other issues/events overnight or earlier this morning. Exam Narrative: General: elderly but WD/WN female in NAD Heart: normal S1 and S2; no rub Lungs: clear anteriorly; coarse at bases Abdomen: soft, nontender, nondistended, positive bowel sounds Extremities: no cyanosis or clubbing; 1+ edema Skin: no nodules Objective Data Vital Signs Vital Signs: Vital Signs Temp Pulse Resp BP Pulse Ox O2 Del Method FiO2 03/26/24 09:13 72 90/40 L 90 Room Air 03/26/24 03:13 97.5 F L 65 16 100/40 L 91 03/26/24 00:07 97.8 F 64 16 96/40 L 90 03/25/24 20:40 64 03/25/24 20:00 64 16 95 Room Air 21 03/25/24 20:00 97.6 F 69 16 94/35 L 94
--- NOTE | 2024-03-26 09:15 | PM.PNNEP ---
Progress Note: A&P Assessment and Plan (1) FRANK (acute kidney injury): Code(s): N17.9 - Acute kidney failure, unspecified Status: Acute Assessment and Plan: fluctuating since admission evaluation noted urine electrolytes non pre-renal CPK okay renal ultrasound unremarkable no evidence of infection initially -- UTI present now suspect fluctuating creatinine due to episodes of low BP and known cardiac disease creatinine was up to 3.0mg/dl on 03/24 but better currently with holding diuretics/entresto and s/p IV albumin + midodrine restart diuretics today follow trend of repeat labs and UOP this maybe a situation where we have to accept a higher creatinine to maintain her volume/fluid status.... (2) Chronic kidney disease, stage 4 (severe): Code(s): N18.4 - Chronic kidney disease, stage 4 (severe) Status: Chronic Assessment and Plan: baseline creatinine runs ~ 1.7 - 2.2mg/dl based on outpatient evaluation, thought to be secondary to previous HTN and chronic prerenal azotemia from her CHF/cardiomyopathy with ongoing need for diuretic therapy (3) Bilateral lower extremity edema: Code(s): R60.0 - Localized edema Status: Acute Assessment and Plan: doing better presumsed to be due to FRANK and chronic CHF no DVT by LE dopplers no evidence of infection resumed on diuretics today (4) Chronic systolic (congestive) heart failure: Code(s): I50.22 - Chronic systolic (congestive) heart failure Status: Acute Assessment and Plan: elevated BNP (but better in comparison to previous values) last Echo noted: EF 35-40%, LV diastolic dysfunction Grade 2 repeat Echo is about the same restart bumex 1.5mg po qday today (5) Urinary tract infection: Code(s): N39.0 - Urinary tract infection, site not specified Status: Acute Assessment and Plan: UA done on 03/24 suggestive urine culture with GNB start antibiotics?? (6) Normocytic anemia: Code(s): D64.9 - Anemia, unspecified Status: Acute Assessment and Plan: due to underlying CKD and iron deficiency no need for IGNACIA therapy s/p IV venofer follow H/H Will continue to follow. Subjective Date/time seen: 03/26/24 09:15 Interval history: Follow-up for acute kidney injury/acute renal failure on chronic kidney disease. Blood pressure remains relatively stable at this time; renal function a bit better as well by AM labs; LE edema persists (but diuretics were on hold given previous hypotension -- restarted today); no apparent distress voiced; no other issues/events overnight or earlier this morning. Exam Narrative: General: elderly but WD/WN female in NAD Heart: normal S1 and S2; no rub Lungs: clear anteriorly; coarse at bases Abdomen: soft, nontender, nondistended, positive bowel sounds Extremities: no cyanosis or clubbing; 1+ edema Skin: no nodules Objective Data Vital Signs Vital Signs: Vital Signs Temp Pulse Resp BP Pulse Ox O2 Del Method FiO2 03/26/24 09:13 72 90/40 L 90 Room Air 03/26/24 03:13 97.5 F L 65 16 100/40 L 91 03/26/24 00:07 97.8 F 64 16 96/40 L 90 03/25/24 20:40 64 03/25/24 20:00 64 16 95 Room Air 21 03/25/24 20:00 97.6 F 69 16 94/35 L 94 03/25/24 14:00 97.7 F 70 14 98/50 L 95 Intake/Output Intake/Output: Intake & Output 03/23/24 03/24/24 03/25/24 03/26/24 23:59 23:59 23:59 23:59 Intake Total 6524 308 9145 470 Output Total 750 800 750 450 Balance 630 140 640 20 Meds/Results Medications: Active Medications Generic Name Dose Route Start Last Admin Trade Name Freq PRN Reason Stop Dose Admin Acetaminophen 650 mg 03/20/24 12:05 03/25/24 20:40 Acetaminophen 325 Mg Tablet PO 650 mg Q4H PRN Administration Mild Pain (1-3) or Fever Albuterol 2 puff 03/20/24 22:31 Albuterol Sulfate (*Sp) Aerosol 1 Puff INHA
[2024-03-26] MEDS: carvediloL 3.125 MG TABLET PO (09:27)
[2024-03-26] MEDS: SACUBITRIL/VALSARTAN 12-13 MG TABLET 1 TAB PO ×2 (09:28→20:04)
[2024-03-26] MEDS: POTASSIUM CHLORIDE 20 MEQ ER TABLET PO (09:28)
[2024-03-26] MEDS: AMIODARONE HCL 200 MG TABLET PO (09:28)
[2024-03-26] MEDS: BUMETANIDE PO 1 MG, BUMETANIDE PO 0.5 MG 1.5 MG PO (09:28)
[2024-03-26] MEDS: ASPIRIN 81 MG CHEWABLE TABLET PO (09:28)
[2024-03-26] MEDS: MICONAZOLE NITRATE 2% CREAM 30 GM TUBE 1 APPLIC TOPICAL ×2 (09:29→17:46)
--- NOTE | 2024-03-26 13:20 | PM.PNCARD ---
Progress Note: A&P Assessment and Plan (1) Cardiomyopathy: Qualifiers: Cardiomyopathy type: ischemic Qualified Code(s): I25.5 - Ischemic cardiomyopathy Code(s): I42.9 - Cardiomyopathy, unspecified Status: Acute Assessment and Plan: Ischemic cardiomyopathy s/p CABG presents with acute on chronic systolic heart failure. Improving with diuresis. Shifted from furosemide to Bumex Entresto restarted at 12-13mg dosage. BP is tolerating this well (SBP runs in the 90's generally) Continue coreg Unable to add/up titrate any other medications because of her BP Daily weights Strict intake and output (2) History of mitral valve replacement with bioprosthetic valve: Onset Date: 04/2021 Code(s): Z95.3 - Presence of xenogenic heart valve Status: Acute (3) Chronic kidney disease, stage 4 (severe): Code(s): N18.4 - Chronic kidney disease, stage 4 (severe) Status: Chronic Assessment and Plan: Nephrology is following alone Subjective Date/time seen: 03/26/24 13:20 Interval history: Follow-up visit in this complicated 74-year-old lady with ischemic heart disease, valvular heart disease, history of atrial fibrillation and reduced left ventricular function. She feels better today and is not reporting symptoms of dyspnea. Appears to be in good spirits. Date of service 03/26/2024: She feels about the same today. Edema continues to improve. No shortness of breath or orthopnea. Complaining of fatigue. Review of Systems Constitutional: Constitutional: Reports fatigue and Reports lethargy Eyes: Eyes: Reports no additional eye complaints ENT: Reports system reviewed and no additional complaints, except as documented Cardiovascular: Cardiovascular: Reports leg edema Respiratory: Respiratory: Reports no additional respiratory complaints Gastrointestinal: Gastrointestinal: Reports no additional gastrointestinal complaints Musculoskeletal: Musculoskeletal: Reports no additional musculoskeletal complaints Neurologic: Reports system reviewed and no additional complaints, except as documented Endocrine: Endocrine: Reports no additional endocrine complaints and Reports fatigue Hematologic/Lymphatic: Hematologic/Lymphatic: Reports no additional hematologic/lymphatic complaints Allergic/Immunologic: Allergic/Immunologic: Reports no additional allergic/immunologic complaints Exam Const: General: comfortable and no acute distress HENMT: Mouth: Yes moist mucous membranes Eyes: Sclera: sclerae normal Neck: Neck: supple and no JVD Resp: Effort & Inspection: normal respiratory effort Auscultation: clear to auscultation bilaterally, rales and wheezes Other: Cardio: Rate: regular rate Rhythm: regular rhythm Other: Soft systolic murmur at the left sternal border without radiation GI: Auscultation: normal bowel sounds Skin: General skin exam: normal color Neuro: Other: Alert and oriented Extrem: General: edema Objective Data Vital Signs Vital Signs: Vital Signs - 24 hr 03/25/24 14:00 03/25/24 20:00 03/25/24 20:00 Temperature 36.5 C 36.4 C Pulse Rate 70 69 64 Respiratory Rate 14 16 16 Blood Pressure 98/50 L 94/35 L Pulse Oximetry 95 94 95 Oxygen Delivery Room Air Fraction of Inspired Oxygen 21 03/25/24 20:40 03/26/24 00:07 03/26/24 03:13 Temperature 36.6 C 36.4 C L Pulse Rate 64 64 65 Respiratory Rate 16 16 Blood Pressure 96/40 L 100/40 L Pulse Oximetry 90 91 Oxygen Delivery Fraction of Inspired Oxygen 03/26/24 09:13 03/26/24 09:27 03/26/24 09:28 Temperature Pulse Rate 72 72 72 Respiratory Rate Blood Pressure 90/40 L Pulse Oximetry 90 Oxygen Delivery Fraction of Inspired Oxygen 03/26/24 09:30 Temperature Pulse Rate Respiratory Rate Blood Pressure Pulse Oximetry Oxygen Delivery Room Air Fraction of Inspired Oxygen Intake/Output Intake/Output: I
[2024-03-26] MEDS: ACETAMINOPHEN 325 MG TABLET 650 MG PO (17:46)
[2024-03-26] MEDS: ALBUTEROL SULFATE (*SP) AEROSOL 1 PUFF 2 PUFF INHALATION (20:40)
[2024-03-27] VITALS (11 sets, daily range): BP systolic 90–113; BP diastolic 45–60; PULSE 60–80; RESP 16–20; TEMP 36.2–36.7; O2SAT 90–96
[2024-03-27 05:14] LABS: Basophils Percent Auto 0.4 % (0.2-1.2); Eosinophils Percent Auto 0.2 % (0-4.4); Hematocrit 31.6 % (37.0-47.0); Hemoglobin 10.2 g/dL (12.0-15.0); Immature Granulocyte Absolute 0.03 K/mm3 (0.00-0.031); Immature Granulocyte Percent A 0.3 % (0-0.5); Lymphocytes Absolute Auto 0.45 K/mm3 (0.9-3.2); Lymphocytes Percent Auto 4.6 % (18.3-44.2); Mean Corpuscular HGB Conc 32.3 g/dl (32-36); Mean Corpuscular Hemoglobin 29.6 pg (26-34); Mean Corpuscular Volume 91.6 fl (80-100); Mean Platelet Volume 11.5 fl (7.4-10.4); Monocytes Absolute Auto 0.8 K/mm3 (0.1-0.6); Monocytes Percent Auto 8.5 % (2.6-8.5); Neutrophils Absolute Auto 8.5 K/mm3 (1.3-6.7); Platelet Count Result 275 k/mm3 (150-375); Red Blood Count 3.45 M/mm3 (4.2-5.4); Red Cell Distribution Width 14.4 % (11.5-14.5); White Blood Count 9.8 K/mm3 (4.5-10.0)
[2024-03-27 05:41] LABS: Alanine Aminotransferase 13 U/L (6-35); Albumin Level 3.5 g/dL (3.5-5.1); Alkaline Phosphatase 98 U/L (38-126); Anion Gap 3 mmol/L (4-12); Aspartate Amino Transferase 23 U/L (14-36); Bilirubin,Total 0.7 mg/dL (0.2-1.3); Blood Urea Nitrogen 66 mg/dL (7-17); Calcium 9.2 mg/dL (8.4-10.2); Carbon Dioxide 33 mmol/L (22-30); Chloride 99 mmol/L (98-107); Estimated CRCL calculation 20 ml/min; Estimated Glomerular Filt Rate 22; Glucose 119 mg/dL (65-110); Potassium 3.3 mmol/L (3.4-5.0); Sodium 135 mmol/L (137-145)
[2024-03-27] MEDS: LEVOTHYROXINE SODIUM 75 MCG TABLET PO (05:52)
[2024-03-27] MEDS: AMIODARONE HCL 200 MG TABLET PO (08:15)
[2024-03-27] MEDS: carvediloL 3.125 MG TABLET PO ×2 (08:19→19:59)
[2024-03-27] MEDS: POTASSIUM CHLORIDE 20 MEQ ER TABLET PO (08:19)
[2024-03-27] MEDS: SACUBITRIL/VALSARTAN 12-13 MG TABLET 1 TAB PO ×2 (08:19→19:59)
[2024-03-27] MEDS: ASPIRIN 81 MG CHEWABLE TABLET PO (08:19)
[2024-03-27] MEDS: BUMETANIDE 1 MG TABLET 2 MG PO (08:20)
--- NOTE | 2024-03-27 09:28 | PM.PNCARD ---
Progress Note: A&P Assessment and Plan (1) Cardiomyopathy: Qualifiers: Cardiomyopathy type: ischemic Qualified Code(s): I25.5 - Ischemic cardiomyopathy Code(s): I42.9 - Cardiomyopathy, unspecified Status: Acute Assessment and Plan: Ischemic cardiomyopathy s/p CABG presents with acute on chronic systolic heart failure. Improving with diuresis. Shifted from furosemide to Bumex Entresto restarted at 12-13mg dosage. BP is tolerating this well (SBP runs in the 90's generally) Continue coreg Unable to add/up titrate any other medications because of her BP Daily weights Strict intake and output (2) History of mitral valve replacement with bioprosthetic valve: Onset Date: 04/2021 Code(s): Z95.3 - Presence of xenogenic heart valve Status: Acute (3) Chronic kidney disease, stage 4 (severe): Code(s): N18.4 - Chronic kidney disease, stage 4 (severe) Status: Chronic Assessment and Plan: Nephrology is following. Creatinine improving. (4) Hypokalemia: Code(s): E87.6 - Hypokalemia Status: Acute Assessment and Plan: Creatinine improving. Potassium 3.3 today. Potassium replaced per nephrology. Subjective Date/time seen: 03/27/24 09:28 Interval history: Follow-up visit in this complicated 74-year-old lady with ischemic heart disease, valvular heart disease, history of atrial fibrillation and reduced left ventricular function. She feels better today and is not reporting symptoms of dyspnea. Appears to be in good spirits. Date of service 03/26/2024: She feels about the same today. Edema continues to improve. No shortness of breath or orthopnea. Complaining of fatigue. Date of service 03/27/2024: Feeling a little bit better today. Swelling is improved. A little short of breath but better Review of Systems Constitutional: Constitutional: Reports fatigue and Reports lethargy Eyes: Eyes: Reports no additional eye complaints ENT: Reports system reviewed and no additional complaints, except as documented Cardiovascular: Cardiovascular: Reports leg edema Respiratory: Respiratory: Reports no additional respiratory complaints Gastrointestinal: Gastrointestinal: Reports no additional gastrointestinal complaints Musculoskeletal: Musculoskeletal: Reports no additional musculoskeletal complaints Neurologic: Reports system reviewed and no additional complaints, except as documented Endocrine: Endocrine: Reports no additional endocrine complaints and Reports fatigue Hematologic/Lymphatic: Hematologic/Lymphatic: Reports no additional hematologic/lymphatic complaints Allergic/Immunologic: Allergic/Immunologic: Reports no additional allergic/immunologic complaints Exam Const: General: comfortable and no acute distress Other: Pleasant white female seated in bed visiting her family she reports generalized weakness but no other active symptoms HENMT: Mouth: Yes moist mucous membranes Eyes: Sclera: sclerae normal Neck: Neck: supple and no JVD Resp: Effort & Inspection: normal respiratory effort Auscultation: rales and wheezes Other: Cardio: Rate: regular rate Rhythm: regular rhythm Other: Soft systolic murmur at the left sternal border without radiation GI: Auscultation: normal bowel sounds Skin: General skin exam: normal color Neuro: Other: Alert and oriented Extrem: General: edema Other: trivial peripheral edema Psych: Affect: normal affect Objective Data Vital Signs Vital Signs: Vital Signs - 24 hr 03/26/24 09:30 03/26/24 14:00 03/26/24 17:29 Temperature 36.6 C 36.6 C Pulse Rate 75 77 Respiratory Rate 14 16 Blood Pressure 100/50 L 106/45 L Pulse Oximetry 95 98 Oxygen Delivery Room Air Oxygen Flow Rate 03/26/24 19:47 03/26/24 19:58 03/26/24 20:42 Temperature 37.0 C Pulse Rate 71 73 Respiratory Rate 18 Blood Pressure 92/41 L Pulse Oxi
--- NOTE | 2024-03-27 12:20 | PM.IMPN ---
Progress Note: A&P Assessment and Plan (1) Bilateral lower extremity edema: Code(s): R60.0 - Localized edema Status: Acute Assessment and Plan: - US of BLE: no DVT - BNP elevated - no signs of infection on exam, does have slight ecchymosis to left ankle. Diffuse tenderness on exam. if no improvement with diuresis, consider XR. - suspect edema secondary to FRANK combined with CHF - see plans below - add knee high compression stockings as tolerated -continue p.o. Bumex as ordered 1.5 mg daily - maurisio wrap-elevation (2) Chronic systolic (congestive) heart failure: Code(s): I50.22 - Chronic systolic (congestive) heart failure Status: Acute Assessment and Plan: - Acute on Chronic HFrEF - BNP 6560 (previously 31,200 in 2020) - most recent echo (2021): EF 35-40%, LV diastolic dysfunction Grade 2, see readout for full details. Update echo. - currently on: Lasix 80 mg BID, hold. Given 40 mg and 80 mg of IVP Lasix in ED. - daily weights - monitor I&Os - trend renal function 03/21: Nephrology consulted, IV Bumex has been ordered 03/22 trend renal function. On entresto, coreg, diuretic. unable to start SGLT-2 due to FRANK/CKD 03/23- BLE edema a lot better- bumex was held yesterday due to low BP. coreg, diuretics. 03/24 will consult cardiology to ensure CHF treatment is optimized - pt is following with card here 03/25- BP improved to baseline (usually in 90's systolic). Cards following- appreciate recommendations-restarting Entresto at 12/13 mg twice daily, continuing coreg 3.125 ng bid, amiodarone, asa 03/26- entresto restarted, coreg- BP stable, Cr/BUN stable-continue. -bumex 1.5 mg po daily-restarted today per nephrology 03/27 swelling is better today (3) Acute kidney injury superimposed on CKD: Code(s): N17.9 - Acute kidney failure, unspecified; N18.9 - Chronic kidney disease, unspecified Status: Acute Assessment and Plan: - creatinine 3.7 (previously 2.8 on 02/06/24) - GFR 12 (previously 17 on 02/06/24) - hx of CKD stage IV - add CK, urine sodium, urine protein/creatinine, urine protein - monitor I&Os - hold Lasix, given 40 + 80 of IVP lasix in ED, on 80 BID daily. resume as renally tolerated. - nephrology consultation, awaiting recs - trend renal function - trend electrolytes, correct as needed - suspect injury secondary to diuresis 03/21: Nephrology consulted, IV Bumex has been ordered 03/22- Cr 2.7, GFR 17, CL wnl, prot/cr ratio-0.21, BP on a low side- bumex was held. nephrology notified per nursing 03/23- Cr 2.50, gfr 19, monitor BP, cr/bun slightly improved. Nephrology is following 03/24 cr3, bun 74, gfr 15 nephrology is following -appreciate recommendations 03/25- received 250 ml iv fluids yesterday- BP improved today, Cr improved. Holding diuretics for now. Nephrology is following. will need to revisit diuretics therapy prior to discharge to optimize treatment. 03/26- see above cr 2.40 today. bumex 1.5 mg po daily-restarted today per nephrology 03/27 BUN/Cr 66/2.20 within baseline (4) CAD (coronary artery disease): Qualifiers: Coronary Disease-Associated Artery/Lesion type: [place] artery [place] vs. transplanted heart: [place] heart Associated angina: without angina Qualified Code(s): I25.10 - Atherosclerotic heart disease of [place] coronary artery without angina pectoris Code(s): I25.10 - Atherosclerotic heart disease of [place] coronary artery without angina pectoris Status: Chronic Assessment and Plan: - hx of CABG and NSTEMI - troponin: 0.035 -> 0.029, flat and no active CP -asa, not on statin- will address that-discussed in details 03/25- pt is hesitant to restart statin (was on it before). (5) MATTIE (iron deficiency anemia): Code(s): D50.9 - Iron deficiency anemia, unspecified Status: Acute Assessment and Plan: -will order venofer IV - home on iron suppliemnt Plan Diet: heart healthy GI Prophylaxis: not currently indicated D
--- NOTE | 2024-03-27 12:46 | PM.PNNEP ---
Progress Note: A&P Assessment and Plan (1) FRANK (acute kidney injury): Code(s): N17.9 - Acute kidney failure, unspecified Status: Acute Assessment and Plan: fluctuating since admission evaluation noted urine electrolytes non pre-renal CPK okay renal ultrasound unremarkable no evidence of infection initially -- UTI present now suspect fluctuating creatinine due to episodes of low BP and known cardiac disease creatinine was up to 3.0mg/dl on 03/24 but better s/p holding diuretics/entresto and s/p IV albumin + midodrine back on diuretic therapy follow trend of repeat labs and UOP this maybe a situation where we have to accept a higher creatinine to maintain her volume/fluid status.... (2) Chronic kidney disease, stage 4 (severe): Code(s): N18.4 - Chronic kidney disease, stage 4 (severe) Status: Chronic Assessment and Plan: baseline creatinine runs ~ 1.7 - 2.2mg/dl based on outpatient evaluation, thought to be secondary to previous HTN and chronic prerenal azotemia from her CHF/cardiomyopathy with ongoing need for diuretic therapy (3) Bilateral lower extremity edema: Code(s): R60.0 - Localized edema Status: Acute Assessment and Plan: doing better presumsed to be due to FRANK and chronic CHF no DVT by LE dopplers no evidence of infection back on diuretics (4) Chronic systolic (congestive) heart failure: Code(s): I50.22 - Chronic systolic (congestive) heart failure Status: Acute Assessment and Plan: elevated BNP (but better in comparison to previous values) last Echo noted: EF 35-40%, LV diastolic dysfunction Grade 2 repeat Echo is about the same resumed on diuretic therapy Cardiology following (5) Urinary tract infection: Code(s): N39.0 - Urinary tract infection, site not specified Status: Acute Assessment and Plan: UA done on 03/24 suggestive urine culture with E.coli start antibiotics?? (6) Normocytic anemia: Code(s): D64.9 - Anemia, unspecified Status: Acute Assessment and Plan: due to underlying CKD and iron deficiency no need for IGNACIA therapy s/p IV venofer follow H/H Will continue to follow. Subjective Date/time seen: 03/27/24 12:46 Interval history: Follow-up for acute kidney injury/acute renal failure on chronic kidney disease. Blood pressure appears to be holding steady with recent medication adjustments; denies any worsening shortness of breath and LE edema is getting better with restart of diuretic therapy; working with PT/OT as tolerated; no issues/events overnight or earlier this morning. Exam Narrative: General: elderly but WD/WN female in NAD Heart: normal S1 and S2; no rub Lungs: clear anteriorly; coarse at bases Abdomen: soft, nontender, nondistended, positive bowel sounds Extremities: no cyanosis or clubbing; 1+ edema Skin: warm and dry Objective Data Vital Signs Vital Signs: Vital Signs Temp Pulse Resp BP Pulse Ox O2 Del Method O2 Flow Rate 03/27/24 12:40 98.1 F 80 16 90/47 L 90 03/27/24 11:00 110/60 03/27/24 10:51 97.7 F 69 16 95 03/27/24 08:00 72 95 Room Air 03/27/24 08:19 72 03/27/24 08:15 72 03/27/24 06:59 97.9 F 73 16 113/49 L 96 03/27/24 02:25 97.9 F 60 16 101/45 L 92 03/26/24 20:42 73 18 03/26/24 20:42 73 94 Nasal Cannula 1 03/26/24 19:58 91 Nasal Cannula 1 03/26/24 19:47 98.6 F 71 18 92/41 L 91 Intake/Output Intake/Output: Intake & Output 03/24/24 03/25/24 03/26/24 03/27/24 23:59 23:59 23:59 23:59 Intake Total 940 1390 2880 350 Output Total 303 737 6371 900 Balance 210 003 1614 -550 Meds/Results Medications: Active Medications Generic Name Dose Route Start Last Admin Trade Name Freq PRN Reason Stop Dose Admin Acetaminophen 650 mg 03/20/24 12:05 03/26/24 17:46 Acetaminophen 3
--- NOTE | 2024-03-27 12:46 | P.PNNP_ITS ---
Progress Note: A&P Assessment and Plan (1) FRANK (acute kidney injury): Code(s): N17.9 - Acute kidney failure, unspecified Status: Acute Assessment and Plan: * fluctuating since admission * evaluation noted * urine electrolytes non pre-renal * CPK okay * renal ultrasound unremarkable * no evidence of infection initially -- UTI present now * suspect fluctuating creatinine due to episodes of low BP and known cardiac disease * creatinine was up to 3.0mg/dl on 03/24 but better s/p holding diuretics/entresto and s/p IV albumin + midodrine * back on diuretic therapy * follow trend of repeat labs and UOP * this maybe a situation where we have to accept a higher creatinine to maintain her volume/fluid status.... (2) Chronic kidney disease, stage 4 (severe): Code(s): N18.4 - Chronic kidney disease, stage 4 (severe) Status: Chronic Assessment and Plan: * baseline creatinine runs ~ 1.7 - 2.2mg/dl * based on outpatient evaluation, thought to be secondary to previous HTN and chronic prerenal azotemia from her CHF/cardiomyopathy with ongoing need for diuretic therapy (3) Bilateral lower extremity edema: Code(s): R60.0 - Localized edema Status: Acute Assessment and Plan: * doing better * presumsed to be due to FRANK and chronic CHF * no DVT by LE dopplers * no evidence of infection * back on diuretics (4) Chronic systolic (congestive) heart failure: Code(s): I50.22 - Chronic systolic (congestive) heart failure Status: Acute Assessment and Plan: * elevated BNP (but better in comparison to previous values) * last Echo noted: EF 35-40%, LV diastolic dysfunction Grade 2 * repeat Echo is about the same * resumed on diuretic therapy * Cardiology following (5) Urinary tract infection: Code(s): N39.0 - Urinary tract infection, site not specified Status: Acute Assessment and Plan: * UA done on 03/24 suggestive * urine culture with E.coli * start antibiotics?? (6) Normocytic anemia: Code(s): D64.9 - Anemia, unspecified Status: Acute Assessment and Plan: * due to underlying CKD and iron deficiency * no need for IGNACIA therapy * s/p IV venofer * follow H/H Will continue to follow. Subjective Date/time seen: 03/27/24 12:46 Interval history: Follow-up for acute kidney injury/acute renal failure on chronic kidney disease. Blood pressure appears to be holding steady with recent medication adjustments; denies any worsening shortness of breath and LE edema is getting better with restart of diuretic therapy; working with PT/OT as tolerated; no issues/events overnight or earlier this morning. Exam Narrative: General: elderly but WD/WN female in NAD Heart: normal S1 and S2; no rub Lungs: clear anteriorly; coarse at bases Abdomen: soft, nontender, nondistended, positive bowel sounds Extremities: no cyanosis or clubbing; 1+ edema Skin: warm and dry Objective Data Vital Signs Vital Signs: Vital Signs Temp Pulse Resp BP Pulse Ox O2 Del Method O2 Flow Rate 03/27/24 12:40 98.1 F 80 16 90/47 L 90 03/27/24 11:00 110/60 03/27/24 10:51 97.7 F 69 16 95 03/27/24 08:00 72 95 Room Air 03/27/24 08:19 72 03/27/24 08:15 72 03/27/24 06:59 97.9 F 73 16 113/4
[2024-03-27] MEDS: ALBUTEROL SULFATE (*SP) AEROSOL 1 PUFF 2 PUFF INHALATION (16:05)
[2024-03-27] MEDS: ACETAMINOPHEN 325 MG TABLET 650 MG PO (19:59)
[2024-03-28] VITALS (13 sets, daily range): BP systolic 89–105; BP diastolic 37–60; PULSE 59–80; RESP 17–18; TEMP 35.6–37; O2SAT 87–100
[2024-03-28] MEDS: LEVOTHYROXINE SODIUM 75 MCG TABLET PO (05:31)
[2024-03-28 05:37] LABS: Basophils Percent Auto 0.3 % (0.2-1.2); Eosinophils Absolute Auto 0.1 K/mm3 (0-0.3); Eosinophils Percent Auto 0.6 % (0-4.4); Hematocrit 33.4 % (37.0-47.0); Hemoglobin 10.3 g/dL (12.0-15.0); Immature Granulocyte Absolute 0.09 K/mm3 (0.00-0.031); Immature Granulocyte Percent A 0.9 % (0-0.5); Lymphocytes Percent Auto 7.1 % (18.3-44.2); Mean Corpuscular HGB Conc 30.8 g/dl (32-36); Mean Corpuscular Hemoglobin 28.9 pg (26-34); Mean Corpuscular Volume 93.6 fl (80-100); Mean Platelet Volume 11.3 fl (7.4-10.4); Monocytes Percent Auto 9.7 % (2.6-8.5); Neutrophils Absolute Auto 8.1 K/mm3 (1.3-6.7); Neutrophils Percent Auto 81.4 % (45.5-73.1); Platelet Count Result 297 k/mm3 (150-375); Red Blood Count 3.57 M/mm3 (4.2-5.4); Red Cell Distribution Width 14.3 % (11.5-14.5); White Blood Count 9.9 K/mm3 (4.5-10.0)
[2024-03-28 05:48] LABS: Alanine Aminotransferase 14 U/L (6-35); Albumin Level 3.4 g/dL (3.5-5.1); Alkaline Phosphatase 102 U/L (38-126); Anion Gap 4 mmol/L (4-12); Aspartate Amino Transferase 25 U/L (14-36); Bilirubin,Total 0.8 mg/dL (0.2-1.3); Blood Urea Nitrogen 67 mg/dL (7-17); Calcium 9.2 mg/dL (8.4-10.2); Carbon Dioxide 34 mmol/L (22-30); Chloride 100 mmol/L (98-107); Estimated CRCL calculation 19 ml/min; Estimated Glomerular Filt Rate 21; Glucose 113 mg/dL (65-110); Magnesium 2.3 mg/dL (1.6-2.3); Potassium 3.2 mmol/L (3.4-5.0); Sodium 138 mmol/L (137-145)
--- NOTE | 2024-03-28 07:23 | PM.IMPN ---
Progress Note: A&P Assessment and Plan (1) Bilateral lower extremity edema: Code(s): R60.0 - Localized edema Status: Acute Assessment and Plan: - continue with diuresis with Bumex (2) Chronic systolic (congestive) heart failure: Code(s): I50.22 - Chronic systolic (congestive) heart failure Status: Acute Assessment and Plan: 03/28- Continue IV Bumex, Entresto, Coreg Cardiology following Continue daily weights Monitor I&O (3) Acute kidney injury superimposed on CKD: Code(s): N17.9 - Acute kidney failure, unspecified; N18.9 - Chronic kidney disease, unspecified Status: Acute Assessment and Plan: 03/28- Creatinine 2.30 Nephrology following History of stage 4 chronic kidney disease Likely secondary to diuresis Patient was started on Bumex per Nephrology recommendation (4) CAD (coronary artery disease): Qualifiers: Associated angina: without angina Coronary Disease-Associated Artery/Lesion type: [place] artery [place] vs. transplanted heart: [place] heart Qualified Code(s): I25.10 - Atherosclerotic heart disease of [place] coronary artery without angina pectoris Code(s): I25.10 - Atherosclerotic heart disease of [place] coronary artery without angina pectoris Status: Chronic Assessment and Plan: 03/28/24: Continue ASA, patient refuses statin (5) MATTIE (iron deficiency anemia): Code(s): D50.9 - Iron deficiency anemia, unspecified Status: Acute Assessment and Plan: 03/28/24: continue iron supplement Will need iron supplment upon discharge (6) Arthralgia of left lower leg: Code(s): M25.562 - Pain in left knee Status: Acute Assessment and Plan: 03/28/24: psoriatic lesions bilateral lower extremity, left great toe swollen and red Uric acid pending Time Spent With Patient Time with patient: 25 - 35 minutes Subjective Date/time seen: 03/28/24 07:23 Interval history: Interval history: 74-year-old female PMH congestive heart failure and significant chronic kidney disease who was admitted for IV diuresis due to lower extremity swelling limiting her ability to walk.? Patient complains swelling mostly problematic around the left lower leg causing pain.? She is usually on 80 mg of Lasix twice daily oral.? Patient denies chest pain had minimal shortness of breath and leg swelling decreased since admission She was seen? per nephrology last night 5/23. 03/22- pt seen and examined today-c/o rt arm swelling and pain- no known injury. leg swelling is a lot better. denies chest pain 03/23- Bp remains on a low side- but pt is asymptomatic. Nephrology was notified yesterday per nursing about BP. Bumex was held yesterday. Pt swelling is improved. Doppler completed on rt arm- no DVT. nephrology is following. renal ultrasound is ordered. Will order PT/OT, continue IS, up tot he chair TID with assistance. 03/24?Pt is seen and examined. No acute events overnight. Diuretic therapy is managed per nephrology-pt improving.Cr/BUN slightly worsen overnight.? Rt arm still somewhat painful but elevation and tylenol can be used as needed.? Using IS, waiting for PT/OT eval. Iron studies completed.? Will order IV venofer Midodrine was ordered last night- but will need to get cardiology input as to whether it is prudent to continue it.? Continue to work with PT/OT, IS 03/25?BP better with some albumin and 250 ml bolus and holding entresto and diuretics.? Chest xray- no pneumonia or atelactasis. UA is collected-culture pending.? WBC is better today though. Cr is down to 2.6 today (from 3). TSH is WNL- 3.420. If pt is feeling better today- will work on IS, ambulation, PT/OT with anticipating discharge within the next day or two if stable.? Will try to optimize CHF regimen prior to discharge.? Cardiology saw her at the bedside- Dr Cowan- will continue amiodarone, coreg 3.125 mg bid, Entresto at 12/13 mg twice daily (will be restarted at a
[2024-03-28] MEDS: ASPIRIN 81 MG CHEWABLE TABLET PO (08:37)
[2024-03-28] MEDS: carvediloL 3.125 MG TABLET PO ×2 (08:37→21:12)
[2024-03-28] MEDS: AMIODARONE HCL 200 MG TABLET PO (08:37)
[2024-03-28] MEDS: BUMETANIDE 1 MG TABLET 2 MG PO (08:37)
[2024-03-28] MEDS: POTASSIUM CHLORIDE 20 MEQ ER TABLET PO ×2 (08:38→11:31)
[2024-03-28] MEDS: SACUBITRIL/VALSARTAN 12-13 MG TABLET 1 TAB PO ×2 (08:38→21:12)
--- NOTE | 2024-03-28 08:53 | PM.PNCARD ---
Progress Note: A&P Assessment and Plan (1) Cardiomyopathy: Qualifiers: Cardiomyopathy type: ischemic Qualified Code(s): I25.5 - Ischemic cardiomyopathy Code(s): I42.9 - Cardiomyopathy, unspecified Status: Acute Assessment and Plan: Ischemic cardiomyopathy s/p CABG presents with acute on chronic systolic heart failure. Improving with diuresis. Shifted from furosemide to Bumex Entresto restarted at 12-13mg dosage. BP is tolerating this well (SBP runs in the 90's generally) Continue coreg Unable to add/up titrate any other medications because of her BP Daily weights Strict intake and output (2) History of mitral valve replacement with bioprosthetic valve: Onset Date: 04/2021 Code(s): Z95.3 - Presence of xenogenic heart valve Status: Acute (3) Chronic kidney disease, stage 4 (severe): Code(s): N18.4 - Chronic kidney disease, stage 4 (severe) Status: Chronic Assessment and Plan: Nephrology is following. Creatinine improving. (4) Hypokalemia: Code(s): E87.6 - Hypokalemia Status: Acute Assessment and Plan: Creatinine improving. (5) Leg pain, bilateral: Code(s): M79.604 - Pain in right leg; M79.605 - Pain in left leg Status: Acute Assessment and Plan: complaining of pain in bilateral feet/toes. Has some erythema in left great toe, bilateral heels. She has psoriasis with lesions seen on bilateral feet. Psoriatic arthritis vs. gout. Will check uric acid. Discussed with hospitalist and will defer any further workup and management to hospitalist service. Plan Cardiology will sign off. Please call with any questions. Subjective Date/time seen: 03/28/24 08:53 Interval history: Follow-up visit in this complicated 74-year-old lady with ischemic heart disease, valvular heart disease, history of atrial fibrillation and reduced left ventricular function. She feels better today and is not reporting symptoms of dyspnea. Appears to be in good spirits. Date of service 03/26/2024: She feels about the same today. Edema continues to improve. No shortness of breath or orthopnea. Complaining of fatigue. Date of service 03/27/2024: Feeling a little bit better today. Swelling is improved. A little short of breath but better Date of service 03/28/2024: Complaining of pain in her feet and right arm. Breathing is better and swelling has resolved. Review of Systems Constitutional: Constitutional: Reports fatigue and Reports lethargy Eyes: Eyes: Reports no additional eye complaints ENT: Reports system reviewed and no additional complaints, except as documented Cardiovascular: Cardiovascular: Reports leg edema Respiratory: Respiratory: Reports no additional respiratory complaints Gastrointestinal: Gastrointestinal: Reports no additional gastrointestinal complaints Musculoskeletal: Musculoskeletal: Reports no additional musculoskeletal complaints Neurologic: Reports system reviewed and no additional complaints, except as documented Endocrine: Endocrine: Reports no additional endocrine complaints and Reports fatigue Hematologic/Lymphatic: Hematologic/Lymphatic: Reports no additional hematologic/lymphatic complaints Allergic/Immunologic: Allergic/Immunologic: Reports no additional allergic/immunologic complaints Exam Const: General: comfortable and no acute distress HENMT: Mouth: Yes moist mucous membranes Eyes: Sclera: sclerae normal Neck: Neck: supple and no JVD Resp: Effort & Inspection: normal respiratory effort Auscultation: clear to auscultation bilaterally Other: Cardio: Rate: regular rate Rhythm: regular rhythm Other: Soft systolic murmur at the left sternal border without radiation GI: Auscultation: normal bowel sounds Skin: General skin exam: normal color Lesions: lesion noted Neuro: Other: Alert and oriented Extrem: General: no edema Psych:
--- NOTE | 2024-03-28 10:35 | PCNWS ---
Weekly nutritional screen. Patient is tolerating current diet with adequate intake. No weight loss reported. No nutritional needs at this time.
--- NOTE | 2024-03-28 12:47 | P.PNNP_ITS ---
Progress Note: A&P Assessment and Plan (1) FRANK (acute kidney injury): Code(s): N17.9 - Acute kidney failure, unspecified Status: Acute Assessment and Plan: * fluctuating since admission but improvement noted * evaluation noted * urine electrolytes non pre-renal * CPK okay * renal ultrasound unremarkable * no evidence of infection initially -- UTI present now * suspect fluctuating creatinine due to episodes of low BP and known cardiac disease * creatinine was up to 3.0mg/dl on 03/24 but better s/p holding diure tics/entresto and s/p IV albumin + midodrine * back on diuretic therapy * follow trend of repeat labs and UOP * this maybe a situation where we have to accept a higher creatinine to maintain her volume/fluid status.... (2) Chronic kidney disease, stage 4 (severe): Code(s): N18.4 - Chronic kidney disease, stage 4 (severe) Status: Chronic Assessment and Plan: * baseline creatinine runs ~ 1.7 - 2.2mg/dl * based on outpatient evaluation, thought to be secondary to previous HTN and chronic prerenal azotemia from her CHF/cardiomyopathy with ongoing need for diuretic therapy (3) Bilateral lower extremity edema: Code(s): R60.0 - Localized edema Status: Acute Assessment and Plan: * doing better * presumsed to be due to FRANK and chronic CHF * no DVT by LE dopplers * no evidence of infection * back on diuretics (4) Chronic systolic (congestive) heart failure: Code(s): I50.22 - Chronic systolic (congestive) heart failure Status: Acute Assessment and Plan: * elevated BNP (but better in comparison to previous values) * last Echo noted: EF 35-40%, LV diastolic dysfunction Grade 2 * repeat Echo is about the same * resumed on diuretic therapy * Cardiology following (5) Urinary tract infection: Code(s): N39.0 - Urinary tract infection, site not specified Status: Acute Assessment and Plan: * UA done on 03/24 suggestive * urine culture with E.coli * start antibiotics?? (6) Normocytic anemia: Code(s): D64.9 - Anemia, unspecified Status: Acute Assessment and Plan: * due to underlying CKD and iron deficiency * no need for IGNACIA therapy * s/p IV venofer * follow H/H Will continue to follow. Subjective Date/time seen: 03/28/24 12:47 Interval history: Follow-up for acute kidney injury/acute renal failure on chronic kidney disease. Renal function as well as blood pressure seems to holding relatively stable with current therapy; major complaint is that of left leg/foot pain at this time; uric acid level is pending; requiring supplemental oxygen at the time of my visit; no other acute issues/events voiced. Exam Narrative: General: elderly but WD/WN female in NAD Heart: normal S1 and S2; no rub Lungs: clear anteriorly; coarse at bases Abdomen: soft, nontender, nondistended, positive bowel sounds Extremities: no cyanosis or clubbing; trace edema Skin: no rash Objective Data Vital Signs Vital Signs: Vital Signs Temp Pulse Resp BP Pulse Ox O2 Del Method O2 Flow Rate 03/28/24 12:04 97.6 F 60 17 105/60 98 03/28/24 08:00 97 Nasal Cannula 1 03/28/24 08:37 60 03/28/24 08:37 60 03/28/24 08:17 98.5 F 60 18 100/58 L 97 03/28/24 08:05 92 Nasal Cannula 1
--- NOTE | 2024-03-28 12:47 | PM.PNNEP ---
Progress Note: A&P Assessment and Plan (1) FRANK (acute kidney injury): Code(s): N17.9 - Acute kidney failure, unspecified Status: Acute Assessment and Plan: fluctuating since admission but improvement noted evaluation noted urine electrolytes non pre-renal CPK okay renal ultrasound unremarkable no evidence of infection initially -- UTI present now suspect fluctuating creatinine due to episodes of low BP and known cardiac disease creatinine was up to 3.0mg/dl on 03/24 but better s/p holding diuretics/entresto and s/p IV albumin + midodrine back on diuretic therapy follow trend of repeat labs and UOP this maybe a situation where we have to accept a higher creatinine to maintain her volume/fluid status.... (2) Chronic kidney disease, stage 4 (severe): Code(s): N18.4 - Chronic kidney disease, stage 4 (severe) Status: Chronic Assessment and Plan: baseline creatinine runs ~ 1.7 - 2.2mg/dl based on outpatient evaluation, thought to be secondary to previous HTN and chronic prerenal azotemia from her CHF/cardiomyopathy with ongoing need for diuretic therapy (3) Bilateral lower extremity edema: Code(s): R60.0 - Localized edema Status: Acute Assessment and Plan: doing better presumsed to be due to FRANK and chronic CHF no DVT by LE dopplers no evidence of infection back on diuretics (4) Chronic systolic (congestive) heart failure: Code(s): I50.22 - Chronic systolic (congestive) heart failure Status: Acute Assessment and Plan: elevated BNP (but better in comparison to previous values) last Echo noted: EF 35-40%, LV diastolic dysfunction Grade 2 repeat Echo is about the same resumed on diuretic therapy Cardiology following (5) Urinary tract infection: Code(s): N39.0 - Urinary tract infection, site not specified Status: Acute Assessment and Plan: UA done on 03/24 suggestive urine culture with E.coli start antibiotics?? (6) Normocytic anemia: Code(s): D64.9 - Anemia, unspecified Status: Acute Assessment and Plan: due to underlying CKD and iron deficiency no need for IGNACIA therapy s/p IV venofer follow H/H Will continue to follow. Subjective Date/time seen: 03/28/24 12:47 Interval history: Follow-up for acute kidney injury/acute renal failure on chronic kidney disease. Renal function as well as blood pressure seems to holding relatively stable with current therapy; major complaint is that of left leg/foot pain at this time; uric acid level is pending; requiring supplemental oxygen at the time of my visit; no other acute issues/events voiced. Exam Narrative: General: elderly but WD/WN female in NAD Heart: normal S1 and S2; no rub Lungs: clear anteriorly; coarse at bases Abdomen: soft, nontender, nondistended, positive bowel sounds Extremities: no cyanosis or clubbing; trace edema Skin: no rash Objective Data Vital Signs Vital Signs: Vital Signs Temp Pulse Resp BP Pulse Ox O2 Del Method O2 Flow Rate 03/28/24 12:04 97.6 F 60 17 105/60 98 03/28/24 08:00 97 Nasal Cannula 1 03/28/24 08:37 60 03/28/24 08:37 60 03/28/24 08:17 98.5 F 60 18 100/58 L 97 03/28/24 08:05 92 Nasal Cannula 1 03/28/24 08:04 87 L Room Air 03/28/24 07:51 96 Nasal Cannula 1 03/28/24 05:32 96.1 F L 80 18 103/41 L 96 03/28/24 01:16 98.3 F 59 L 18 89/37 L 95 03/27/24 20:31 97.2 F L 65 20 99/50 L 95 03/27/24 20:00 93 Nasal Cannula 1 03/27/24 19:59 65 Intake/Output Intake/Output: Intake & Output 03/25/24 03/26/24 03/27/24 03/28/24 23:59 23:59 23:59 23:59 Intake Total 1390 2880 900 480 Output Total 750 1650 1550 300 Balance 640 1230 -650 180 Meds/Results Medications: Active Medications Generic Name Dose Route Start Last Admin Trade Name Freq PRN Reason St
[2024-03-28] MEDS: CEFDINIR 300 MG CAPSULE PO (21:12)
[2024-03-28] MEDS: ACETAMINOPHEN 325 MG TABLET 650 MG PO (23:30)
[2024-03-29] VITALS (7 sets, daily range): BP systolic 94–104; BP diastolic 39–56; PULSE 60–70; RESP 17; TEMP 36.2–36.6; O2SAT 96–98
[2024-03-29] MEDS: LEVOTHYROXINE SODIUM 75 MCG TABLET PO (04:37)
[2024-03-29 05:20] LABS: Basophils Percent Auto 0.2 % (0.2-1.2); Eosinophils Absolute Auto 0.1 K/mm3 (0-0.3); Eosinophils Percent Auto 0.7 % (0-4.4); Hematocrit 30.4 % (37.0-47.0); Hemoglobin 9.6 g/dL (12.0-15.0); Immature Granulocyte Percent A 1.2 % (0-0.5); Lymphocytes Absolute Auto 0.51 K/mm3 (0.9-3.2); Lymphocytes Percent Auto 6.3 % (18.3-44.2); Mean Corpuscular HGB Conc 31.6 g/dl (32-36); Mean Corpuscular Hemoglobin 29.2 pg (26-34); Mean Corpuscular Volume 92.4 fl (80-100); Mean Platelet Volume 11.4 fl (7.4-10.4); Monocytes Absolute Auto 0.9 K/mm3 (0.1-0.6); Monocytes Percent Auto 10.5 % (2.6-8.5); Neutrophils Absolute Auto 6.5 K/mm3 (1.3-6.7); Neutrophils Percent Auto 81.1 % (45.5-73.1); Platelet Count Result 294 k/mm3 (150-375); Red Blood Count 3.29 M/mm3 (4.2-5.4); Red Cell Distribution Width 14.4 % (11.5-14.5); White Blood Count 8.1 K/mm3 (4.5-10.0)
[2024-03-29 05:39] LABS: Alanine Aminotransferase 14 U/L (6-35); Albumin Level 3.1 g/dL (3.5-5.1); Alkaline Phosphatase 96 U/L (38-126); Anion Gap 3 mmol/L (4-12); Aspartate Amino Transferase 23 U/L (14-36); Bilirubin,Total 0.6 mg/dL (0.2-1.3); Blood Urea Nitrogen 61 mg/dL (7-17); Carbon Dioxide 33 mmol/L (22-30); Chloride 101 mmol/L (98-107); Estimated CRCL calculation 22 ml/min; Estimated Glomerular Filt Rate 24; Glucose 109 mg/dL (65-110); Potassium 3.4 mmol/L (3.4-5.0); Sodium 137 mmol/L (137-145)
[2024-03-29] MEDS: AMIODARONE HCL 200 MG TABLET PO (08:49)
[2024-03-29] MEDS: ASPIRIN 81 MG CHEWABLE TABLET PO (08:50)
[2024-03-29] MEDS: carvediloL 3.125 MG TABLET PO (08:50)
[2024-03-29] MEDS: BUMETANIDE 1 MG TABLET 2 MG PO (08:50)
[2024-03-29] MEDS: CEFDINIR 300 MG CAPSULE PO (08:51)
[2024-03-29] MEDS: FERROUS SULFATE 325 MG TABLET DR PO (08:51)
[2024-03-29] MEDS: SACUBITRIL/VALSARTAN 12-13 MG TABLET 1 TAB PO (08:51)
[2024-03-29] MEDS: MICONAZOLE NITRATE 2% CREAM 30 GM TUBE 1 APPLIC TOPICAL (08:52)
--- NOTE | 2024-03-29 10:15 | P.PNIM_ITS ---
Progress Note: A&P Assessment and Plan (1) Bilateral lower extremity edema: Code(s): R60.0 - Localized edema Status: Acute Assessment and Plan: - continue with diuresis with Bumex (2) Chronic systolic (congestive) heart failure: Code(s): I50.22 - Chronic systolic (congestive) heart failure Status: Acute Assessment and Plan: 03/28- * Continue IV Bumex, Entresto, Coreg * Cardiology following * Continue daily weights * Monitor I&O 03/29/24: * No change to current treatment plan (3) Acute kidney injury superimposed on CKD: Code(s): N17.9 - Acute kidney failure, unspecified; N18.9 - Chronic kidney disease, unspecified Status: Acute Assessment and Plan: 03/28- * Creatinine 2.30 * Nephrology following * History of stage 4 chronic kidney disease * Likely secondary to diuresis * Patient was started on Bumex per Nephrology recommendation 03/29/24: * Creatinine 2.0 today * Nephrology following * Continue Bumex (4) CAD (coronary artery disease): Qualifiers: Associated angina: without angina Coronary Disease-Associated Artery/Lesion type: [place] artery [place] vs. transplanted heart: [place] heart Qualified Code(s): I25.10 - Atherosclerotic heart disease of [place] coronary artery without angina pectoris Code(s): I25.10 - Atherosclerotic heart disease of [place] coronary artery without angina pectoris Status: Chronic Assessment and Plan: 03/28/24: * Continue ASA, patient refuses statin 03/29/24: * No change to current treatment plan (5) MATTIE (iron deficiency anemia): Code(s): D50.9 - Iron deficiency anemia, unspecified Status: Acute Assessment and Plan: 03/28/24: * continue iron supplement * Will need iron supplment upon discharge 03/29/24: * No change to current treatment plan (6) Arthralgia of left lower leg: Code(s): M25.562 - Pain in left knee Status: Acute Assessment and Plan: 03/28/24: * psoriatic lesions bilateral lower extremity, left great toe swollen and red * Uric acid pending 03/29/24: * Uric acid 14.0 * Will check ESR, CRP, RF today * Started on prednisone taper * Will need Rheumatology followup on outpatient basis. Time Spent With Patient Time with patient: 25 - 35 minutes Subjective Date/time seen: 03/29/24 10:15 Interval history: Interval history: 74-year-old female PMH congestive heart failure and significant chronic kidney disease who was admitted for IV diuresis due to lower extremity swelling limiting her ability to walk.? Patient complains swelling mostly problematic around the left lower leg causing pain.? She is usually on 80 mg of Lasix twice daily oral.? Patient denies chest pain had minimal shortness of breath and leg swelling decreased since admission She was seen? per nephrology last night 03/21. 03/22- pt seen and examined today-c/o rt arm swelling and pain- no known injury. leg swelling is a lot better. denies chest pain 03/23- Bp remains on a low side- but pt is asymptomatic. Nephrology was notified yesterday per nursing about BP. Bumex was held yesterday. Pt swelling is improved. Doppler completed on rt arm- no DVT. nephrology is following. renal ultrasound is ordered. Will order PT/OT, continue IS, up tot he chair TID with assistance. 03/24?Pt is seen and examined. No acute events overnight. Diuretic therapy is managed per nephrology-pt improving.Cr/BUN slightly worsen overnight.? Rt arm still somewhat painful but elevation and tylenol can be used a
--- NOTE | 2024-03-29 10:15 | PM.IMPN ---
Progress Note: A&P Assessment and Plan (1) Bilateral lower extremity edema: Code(s): R60.0 - Localized edema Status: Acute Assessment and Plan: - continue with diuresis with Bumex (2) Chronic systolic (congestive) heart failure: Code(s): I50.22 - Chronic systolic (congestive) heart failure Status: Acute Assessment and Plan: 03/28- Continue IV Bumex, Entresto, Coreg Cardiology following Continue daily weights Monitor I&O 03/29/24: No change to current treatment plan (3) Acute kidney injury superimposed on CKD: Code(s): N17.9 - Acute kidney failure, unspecified; N18.9 - Chronic kidney disease, unspecified Status: Acute Assessment and Plan: 03/28- Creatinine 2.30 Nephrology following History of stage 4 chronic kidney disease Likely secondary to diuresis Patient was started on Bumex per Nephrology recommendation 03/29/24: Creatinine 2.0 today Nephrology following Continue Bumex (4) CAD (coronary artery disease): Qualifiers: Associated angina: without angina Coronary Disease-Associated Artery/Lesion type: [place] artery [place] vs. transplanted heart: [place] heart Qualified Code(s): I25.10 - Atherosclerotic heart disease of [place] coronary artery without angina pectoris Code(s): I25.10 - Atherosclerotic heart disease of [place] coronary artery without angina pectoris Status: Chronic Assessment and Plan: 03/28/24: Continue ASA, patient refuses statin 03/29/24: No change to current treatment plan (5) MATTIE (iron deficiency anemia): Code(s): D50.9 - Iron deficiency anemia, unspecified Status: Acute Assessment and Plan: 03/28/24: continue iron supplement Will need iron supplment upon discharge 03/29/24: No change to current treatment plan (6) Arthralgia of left lower leg: Code(s): M25.562 - Pain in left knee Status: Acute Assessment and Plan: 03/28/24: psoriatic lesions bilateral lower extremity, left great toe swollen and red Uric acid pending 03/29/24: Uric acid 14.0 Will check ESR, CRP, RF today Started on prednisone taper Will need Rheumatology followup on outpatient basis. Time Spent With Patient Time with patient: 25 - 35 minutes Subjective Date/time seen: 03/29/24 10:15 Interval history: Interval history: 74-year-old female PMH congestive heart failure and significant chronic kidney disease who was admitted for IV diuresis due to lower extremity swelling limiting her ability to walk.? Patient complains swelling mostly problematic around the left lower leg causing pain.? She is usually on 80 mg of Lasix twice daily oral.? Patient denies chest pain had minimal shortness of breath and leg swelling decreased since admission She was seen? per nephrology last night 03/21. 03/22- pt seen and examined today-c/o rt arm swelling and pain- no known injury. leg swelling is a lot better. denies chest pain 03/23- Bp remains on a low side- but pt is asymptomatic. Nephrology was notified yesterday per nursing about BP. Bumex was held yesterday. Pt swelling is improved. Doppler completed on rt arm- no DVT. nephrology is following. renal ultrasound is ordered. Will order PT/OT, continue IS, up tot he chair TID with assistance. 03/24?Pt is seen and examined. No acute events overnight. Diuretic therapy is managed per nephrology-pt improving.Cr/BUN slightly worsen overnight.? Rt arm still somewhat painful but elevation and tylenol can be used as needed.? Using IS, waiting for PT/OT eval. Iron studies completed.? Will order IV venofer Midodrine was ordered last night- but will need to get cardiology input as to whether it is prudent to continue it.? Continue to work with PT/OT, IS 03/25?BP better with some albumin and 250 ml bolus and holding entresto and diuretics.? Chest xray- no pneumonia or atelactasis. UA is collected-culture pending.? WBC is better today though. Cr is down to 2.6 toda
[2024-03-29 11:08] LABS: Rheumatoid Factor < 12.0 IU/ML (<12)
--- NOTE | 2024-03-29 11:34 | P.PNNP_ITS ---
Progress Note: A&P Assessment and Plan (1) FRANK (acute kidney injury): Code(s): N17.9 - Acute kidney failure, unspecified Status: Acute Assessment and Plan: * slow improvement noted (if not back to baseline) * evaluation noted * urine electrolytes non pre-renal * CPK okay * renal ultrasound unremarkable * no evidence of infection initially -- UTI present now * suspect fluctuating creatinine due to episodes of low BP and known cardiac disease * creatinine was up to 3.0mg/dl on 03/24 but better s/p holding diuret ics/Entresto and s/p IV albumin + midodrine * back on diuretic therapy * follow trend of repeat labs and UOP * this maybe a situation where we have to accept a higher creatinine to maintain her volume/fluid status.... (2) Chronic kidney disease, stage 4 (severe): Code(s): N18.4 - Chronic kidney disease, stage 4 (severe) Status: Chronic Assessment and Plan: * baseline creatinine runs ~ 1.7 - 2.2mg/dl * based on outpatient evaluation, thought to be secondary to previous HTN and chronic prerenal azotemia from her CHF/cardiomyopathy with ongoing need for diuretic therapy (3) Bilateral lower extremity edema: Code(s): R60.0 - Localized edema Status: Acute Assessment and Plan: * doing better * presumsed to be due to FRANK and chronic CHF * no DVT by LE dopplers * no evidence of infection * back on diuretics (4) Chronic systolic (congestive) heart failure: Code(s): I50.22 - Chronic systolic (congestive) heart failure Status: Acute Assessment and Plan: * elevated BNP (but better in comparison to previous values) * last Echo noted: EF 35-40%, LV diastolic dysfunction Grade 2 * repeat Echo is about the same * resumed on diuretic therapy * Cardiology following (5) Urinary tract infection: Code(s): N39.0 - Urinary tract infection, site not specified Status: Acute Assessment and Plan: * UA done on 03/24 suggestive * urine culture with E.coli * on antibiotics (6) Normocytic anemia: Code(s): D64.9 - Anemia, unspecified Status: Acute Assessment and Plan: * due to underlying CKD and iron deficiency * no need for IGNACIA therapy * s/p IV venofer * follow H/H Will continue to follow. Subjective Date/time seen: 03/29/24 11:34 Interval history: Follow-up for acute kidney injury/acute renal failure on chronic kidney disease. Started on steroid therapy due to concerns for possible psoriatic arthritis versus gout flare (high uric acid along with elevated ESR and CRP as well); renal function as well as blood pressure have remained relatively stable at this time; no other acute concerns voiced. Exam Narrative: General: elderly but WD/WN female in NAD Heart: normal S1 and S2; no rub Lungs: clear anteriorly; coarse at bases Abdomen: soft, nontender, nondistended, positive bowel sounds Extremities: no cyanosis or clubbing; trace edema Skin: no nodules Objective Data Vital Signs Vital Signs: Vital Signs Temp Pulse Resp BP Pulse Ox O2 Del Method O2 Flow Rate 03/29/24 11:00 97.1 F L 70 17 94/56 L 98 03/29/24 08:40 98 Nasal Cannula 1 03/29/24 08:50 68 03/29/24 08:49 68 03/29/24 08:48 68 101/39 L 03/29/24 04:41 97.9 F 60 17 104/51 L 98 0
--- NOTE | 2024-03-29 11:34 | PM.PNNEP ---
Progress Note: A&P Assessment and Plan (1) FRANK (acute kidney injury): Code(s): N17.9 - Acute kidney failure, unspecified Status: Acute Assessment and Plan: slow improvement noted (if not back to baseline) evaluation noted urine electrolytes non pre-renal CPK okay renal ultrasound unremarkable no evidence of infection initially -- UTI present now suspect fluctuating creatinine due to episodes of low BP and known cardiac disease creatinine was up to 3.0mg/dl on 03/24 but better s/p holding diuretics/Entresto and s/p IV albumin + midodrine back on diuretic therapy follow trend of repeat labs and UOP this maybe a situation where we have to accept a higher creatinine to maintain her volume/fluid status.... (2) Chronic kidney disease, stage 4 (severe): Code(s): N18.4 - Chronic kidney disease, stage 4 (severe) Status: Chronic Assessment and Plan: baseline creatinine runs ~ 1.7 - 2.2mg/dl based on outpatient evaluation, thought to be secondary to previous HTN and chronic prerenal azotemia from her CHF/cardiomyopathy with ongoing need for diuretic therapy (3) Bilateral lower extremity edema: Code(s): R60.0 - Localized edema Status: Acute Assessment and Plan: doing better presumsed to be due to FRANK and chronic CHF no DVT by LE dopplers no evidence of infection back on diuretics (4) Chronic systolic (congestive) heart failure: Code(s): I50.22 - Chronic systolic (congestive) heart failure Status: Acute Assessment and Plan: elevated BNP (but better in comparison to previous values) last Echo noted: EF 35-40%, LV diastolic dysfunction Grade 2 repeat Echo is about the same resumed on diuretic therapy Cardiology following (5) Urinary tract infection: Code(s): N39.0 - Urinary tract infection, site not specified Status: Acute Assessment and Plan: UA done on 03/24 suggestive urine culture with E.coli on antibiotics (6) Normocytic anemia: Code(s): D64.9 - Anemia, unspecified Status: Acute Assessment and Plan: due to underlying CKD and iron deficiency no need for IGNACIA therapy s/p IV venofer follow H/H Will continue to follow. Subjective Date/time seen: 03/29/24 11:34 Interval history: Follow-up for acute kidney injury/acute renal failure on chronic kidney disease. Started on steroid therapy due to concerns for possible psoriatic arthritis versus gout flare (high uric acid along with elevated ESR and CRP as well); renal function as well as blood pressure have remained relatively stable at this time; no other acute concerns voiced. Exam Narrative: General: elderly but WD/WN female in NAD Heart: normal S1 and S2; no rub Lungs: clear anteriorly; coarse at bases Abdomen: soft, nontender, nondistended, positive bowel sounds Extremities: no cyanosis or clubbing; trace edema Skin: no nodules Objective Data Vital Signs Vital Signs: Vital Signs Temp Pulse Resp BP Pulse Ox O2 Del Method O2 Flow Rate 03/29/24 11:00 97.1 F L 70 17 94/56 L 98 03/29/24 08:40 98 Nasal Cannula 1 03/29/24 08:50 68 03/29/24 08:49 68 03/29/24 08:48 68 101/39 L 03/29/24 04:41 97.9 F 60 17 104/51 L 98 03/29/24 01:30 97.9 F 60 17 103/44 L 96 03/28/24 21:00 98 Nasal Cannula 1 03/28/24 21:12 72 03/28/24 19:44 98.5 F 72 18 101/40 L 98 03/28/24 17:20 98.6 F 68 17 102/60 100 Intake/Output Intake/Output: Intake & Output 03/26/24 03/27/24 03/28/24 03/29/24 23:59 23:59 23:59 23:59 Intake Total 2880 900 720 480 Output Total 1650 1550 600 400 Balance 1230 -650 120 80 Meds/Results Medications: Active Medications Generic Name Dose Route Start Last Admin Trade Name Freq PRN Reason Stop Dose Admin Acetaminophen 650 mg 03/20/24 12:05 03/28/24 23:30 Acetaminophen 325 Mg Tablet
[2024-03-29 11:39] LABS: Erythrocyte Sedimentation Rate > 140 mm/hr (0-20)
[2024-03-29 11:53] LABS: CRP 20.6 mg/dL (<1.0)
[2024-03-29] MEDS: predniSONE 10 MG TABLET 40 MG PO (11:59)
[2024-03-29] MEDS: POTASSIUM CHLORIDE 20 MEQ ER TABLET 40 MEQ PO (12:00)
--- NOTE | 2024-03-29 15:46 | PM.DS ---
DS: Admitting Diagnosis Discharge Date 03/29/24 Admitting Diagnosis Bilateral lower extremity edema Chronic systolic congestive Heart failure Acute kidney injury superimposed on chronic kidney disease Coronary artery disease DS: Discharge Diagnosis Discharge Diagnosis (1) Bilateral lower extremity edema: Code(s): R60.0 - Localized edema Status: Acute (2) Chronic systolic (congestive) heart failure: Code(s): I50.22 - Chronic systolic (congestive) heart failure Status: Acute (3) Acute kidney injury superimposed on CKD: Code(s): N17.9 - Acute kidney failure, unspecified; N18.9 - Chronic kidney disease, unspecified Status: Acute (4) CAD (coronary artery disease): Qualifiers: Associated angina: without angina Coronary Disease-Associated Artery/Lesion type: [place] artery [place] vs. transplanted heart: [place] heart Qualified Code(s): I25.10 - Atherosclerotic heart disease of [place] coronary artery without angina pectoris Code(s): I25.10 - Atherosclerotic heart disease of [place] coronary artery without angina pectoris Status: Chronic (5) MATTIE (iron deficiency anemia): Code(s): D50.9 - Iron deficiency anemia, unspecified Status: Acute (6) Arthralgia of left lower leg: Code(s): M25.562 - Pain in left knee Status: Acute DS: Summary Hospital Course Reason for hospitalization: Bilateral lower extremity edema Chronic systolic congestive Heart failure Acute kidney injury superimposed on chronic kidney disease Coronary artery disease Hospital Course: Interval history: 74-year-old female PMH congestive heart failure and significant chronic kidney disease who was admitted for IV diuresis due to lower extremity swelling limiting her ability to walk.? Patient complains swelling mostly problematic around the left lower leg causing pain.? She is usually on 80 mg of Lasix twice daily oral.? Patient denies chest pain had minimal shortness of breath and leg swelling decreased since admission She was seen? per nephrology last night 03/21. 03/22- pt seen and examined today-c/o rt arm swelling and pain- no known injury. leg swelling is a lot better. denies chest pain 03/23- Bp remains on a low side- but pt is asymptomatic. Nephrology was notified yesterday per nursing about BP. Bumex was held yesterday. Pt swelling is improved. Doppler completed on rt arm- no DVT. nephrology is following. renal ultrasound is ordered. Will order PT/OT, continue IS, up tot he chair TID with assistance. 03/24?Pt is seen and examined. No acute events overnight. Diuretic therapy is managed per nephrology-pt improving.Cr/BUN slightly worsen overnight.? Rt arm still somewhat painful but elevation and tylenol can be used as needed.? Using IS, waiting for PT/OT eval. Iron studies completed.? Will order IV venofer Midodrine was ordered last night- but will need to get cardiology input as to whether it is prudent to continue it.? Continue to work with PT/OT, IS 03/25?BP better with some albumin and 250 ml bolus and holding entresto and diuretics.? Chest xray- no pneumonia or atelactasis. UA is collected-culture pending.? WBC is better today though. Cr is down to 2.6 today (from 3). TSH is WNL- 3.420. If pt is feeling better today- will work on IS, ambulation, PT/OT with anticipating discharge within the next day or two if stable.? Will try to optimize CHF regimen prior to discharge.? Cardiology saw her at the bedside- Dr Cowan- will continue amiodarone, coreg 3.125 mg bid, Entresto at 12/13 mg twice daily (will be restarted at a lower dose). She will need ot be on diuretic (home regimen was 80 mg lasix BID)-waiting for nephrology recommendations on that. I discussed re starting statin- she was on it before but quit as she heard that statin was not beneficial for women. I discussed it with her at [facility] and recommended starting low dose.? she will consider it. 03/26- ?coreg 3.125 mg bid, Entresto at 12/13 m
== END 2024-03-29 18:56 | DRG 682 ==
LOC: ANHED 12:05 → ANHIMU 12:16 → ANH2MED 03-21 16:58
PROVIDERS: Emergency Medicine; Internal Medicine Nephrology; Nurse Practitioner; Student in an Organized Health Care Education/Training Program; Admitting Provider Internal Medicine; Emergency Provider Student in an Organized Health Care Education/Training Program; PCP Family Medicine Adolescent Medicine; Visit Provider Nurse Practitioner Acute Care
DX: N17.9 Acute kidney failure, unspecified (principal); I50.23 Acute on chronic systolic (congestive) heart failure; I13.0 Hypertensive heart and chronic kidney disease with heart failure and stage 1 through stage 4 chronic kidney disease, or unspecified chronic kidney disease; E87.1 Hypo-osmolality and hyponatremia; N39.0 Urinary tract infection, site not specified; N18.4 Chronic kidney disease, stage 4 (severe); I48.0 Paroxysmal atrial fibrillation; I25.5 Ischemic cardiomyopathy; I25.10 Atherosclerotic heart disease of native coronary artery without angina pectoris; E87.6 Hypokalemia; D50.9 Iron deficiency anemia, unspecified; E78.5 Hyperlipidemia, unspecified; J44.9 Chronic obstructive pulmonary disease, unspecified; L40.9 Psoriasis, unspecified; M10.9 Gout, unspecified; B96.20 Unspecified Escherichia coli [E. coli] as the cause of diseases classified elsewhere; F32.A Depression, unspecified; F17.210 Nicotine dependence, cigarettes, uncomplicated; I25.2 Old myocardial infarction; Z79.82 Long term (current) use of aspirin; Z95.810 Presence of automatic (implantable) cardiac defibrillator; Z95.1 Presence of aortocoronary bypass graft; Z95.5 Presence of coronary angioplasty implant and graft; Z87.442 Personal history of urinary calculi; Z95.4 Presence of other heart-valve replacement
CPT/HCPCS: 36415; 71045; 76775; 80053; 80069; 81001; 81050; 82550; 82570; 82728; 83540; 83550; 83735; 83880; 84156; 84300; 84443; 84484; 84540; 84550; 85025; 85027; 85380; 85652; 85999; 86140; 86430; 87077; 87086; 87088; 87186; 93005; 93970; 93971; 94640; 96374; 96375; 96376; 97110; 97161; 97165; 97530; 97535; 99285; A9270; C8929; G0378; J1756; J1939; J1940; J7050; J7512; P9047; Q9957

== ENCOUNTER 2024-08-07 07:32 | Outpatient (RCR) | payer MEDICARE, SELFPAY ==
[2024-05-20 09:43] VITALS: BMI 31.8
== END 2024-08-18 23:59 | disposition home or self-care (01) ==
LOC: ANHWOC 07:32
PROVIDERS: PCP Family Medicine Adolescent Medicine; Visit Provider Family Medicine Adolescent Medicine
DX: Z48.00 Encounter for change or removal of nonsurgical wound dressing (principal); L89.620 Pressure ulcer of left heel, unstageable
CPT/HCPCS: 99213; 99214; A9270; G0463

== ENCOUNTER 2024-08-07 10:43 | Inpatient (IN) | payer MEDICARE, SELFPAY ==
[2024-08-07] VITALS (43 sets, daily range): BP systolic 63–119; BP diastolic 29–85; PULSE 68–91; RESP 14–24; TEMP 36.2–36.7; O2SAT 90–100; BMI 35.2; BMI 33.4
--- NOTE | ~2024-08-07 | XR_ITS ---
CHEST RADIOGRAPH CLINICAL HISTORY: Central line placement . COMPARISON: 08/07/2024 TECHNIQUE: Single portable view of the chest. FINDINGS Right internal jugular central venous catheter is identified with its tip projecting over the cavoatr ial junction, in good position. The left lateral mid lung is partially obscured due to pacemaker/AICD generator. Wires project over the right atrium, coronary sinus and right ventricle. Sternal wires and mediastinal clips are identified, the wires are midline and intact. Ring is identified projecting over the mitral annulus. Clip projects over the left atrial appendage. The remainder of the cardiomediastinal silhouette is otherwise unremarkable. The right lung is fully inflated. The bilateral lung castellano are clear. IMPRESSION: Interval placement of a right internal jugular central venous catheter with its tip projecting over t he cavoatrial junction, in good position and ready for immediate use. Remainder of examination is unchanged from previous study performed approximately 4 hours earlier. Reviewed, dictated and finalized at location A. IMPRESSION: Interval placement of a right internal jugular central venous catheter with its tip projecting over the cavoatrial junction, in good position and ready for im mediate use. Remainder of examination is unchanged from previous study performed approximate ly 4 hours earlier.
--- NOTE | ~2024-08-07 | XR_ITS ---
XR chest 2V 08/07/2024 15:05 Indication: Swelling. Procedure: 2 view chest Comparison: Comparison to multiple prior studies sequentially, with oldest reviewed study dated 08/30. Findings: Status post median sternotomy for CABG. Heart size normal. There is a prosthetic heart valv e. No focal air space disease, pulmonary edema, pleural effusion or suspected pneumothorax. Impression: 1: No acute cardiopulmonary disease. Reviewed, dictated and finalized at location B. Impression: 1: No acute cardiopulmonary disease.
--- NOTE | ~2024-08-07 | US_ITS ---
BILATERAL LOWER EXTREMITY VENOUS ULTRASOUND Ordering provider: Leno Mclain MD History: . Lower extremity swelling . Comparison: None. FINDINGS: RIGHT LOWER EXTREMITY VEINS: --COMMON FEMORAL: Patent and free of thrombus. Normal compressibility, phasic flow and augmentation. --PROXIMAL SUPERFICIAL FEMORAL: Patent and free of thrombus. Normal compressibility, phasic flow and augmentation. --DISTAL SUPERFICIAL FEMORAL: Patent and free of thrombus. Normal compressibility, phasic flow and au gmentation. --POPLITEAL: Patent and free of thrombus. Normal compressibility, phasic flow and augmentation. --POSTERIOR TIBIAL: Patent and free of thrombus. Normal compressibility, phasic flow and augmentation . LEFT LOWER EXTREMITY VEINS: --COMMON FEMORAL: Patent and free of thrombus. Normal compressibility, phasic flow and augmentation. --PROXIMAL SUPERFICIAL FEMORAL: Patent and free of thrombus. Normal compressibility, phasic flow and augmentation. --DISTAL SUPERFICIAL FEMORAL: Patent and free of thrombus. Normal compressibility, phasic flow and au gmentation. --POPLITEAL: Patent and free of thrombus. Normal compressibility, phasic flow and augmentation. --POSTERIOR TIBIAL: Patent and free of thrombus. Normal compressibility, phasic flow and augmentation . IMPRESSION: Negative bilateral lower extremity venous US. No deep vein thrombosis. Reviewed, dictated and finalized at location A.
--- NOTE | ~2024-08-07 | US_ITS ---
EXAMINATION: US arterial ankle brachial ind DATE: 08/08/2024 15:00 INDICATION: Chronic left heel wound. TECHNIQUE: Segmental pressures and plethysmographic and Doppler waveforms of the brachial and lower e xtremity arteries were obtained. COMPARISON: None. FINDINGS: Right and left brachial artery pressures of 109 mm Hg and 132 mm Hg, respectively, are concordant (no rmal difference <= 30 mmHg). The right ankle-brachial index (BRISA) is 0.61 (normal >= 0.9-1.0). The right great toe-brachial index (TBI) is 0.17 (normal >= 0.65). Arterial Doppler waveforms are monophasic at the ankle. The left BRISA is 0.61. The left TBI is 0.22. Arterial Doppler waveforms are monophasic at the ankle. IMPRESSION: 1. Moderately decreased ABIs, consistent with arterial occlusive disease. Reviewed, dictated and finalized at location A.
--- NOTE | ~2024-08-07 | XR_ITS ---
EXAMINATION: XR chest 1V portable DATE: 08/11/2024 08:32 INDICATION: Shortness of breath. TECHNIQUE: A single frontal view of the chest was obtained. COMPARISON: Chest single view 08/07/2024 FINDINGS: There is a diffuse interstitial pattern, consistent with mild pulmonary edema. No pleural e ffusion or pneumothorax. Cardiomegaly is noted. There are changes of heart valve replacement. There i s a left atrial appendage closure device. There is a left chest pacer/defibrillator with leads in rig ht atrium, right ventricle, and coronary sinus. A right internal jugular central venous catheter is s een with tip at the superior cavoatrial junction. IMPRESSION: 1. Mild pulmonary edema. 2. Cardiomegaly. Reviewed, dictated and finalized at location A.
--- NOTE | ~2024-08-07 | CT_ITS ---
EXAMINATION: CT foot LT wo con DATE: 08/07/2024 15:29 INDICATION: Left foot gangrene. TECHNIQUE: Computed tomography (CT) of the left foot was performed without intravenous contrast. Auto mated exposure control and iterative reconstruction technique were employed. The dose-length product was 485.78 mGy-cm. COMPARISON: None FINDINGS: Bone alignment is normal. No acute fracture. There is heterotopic ossification distal to me dial malleolus. Osteopenia is noted, which decreases sensitivity. There is mild osteoarthritis of fir st metatarsophalangeal joint and some of the interphalangeal joints and midfoot joints. There are ent hesophytes at the posterior and plantar aspects of calcaneal tuberosity. There is widespread subcutan eous edema in the foot and ankle. IMPRESSION: 1. No specific evidence of osteomyelitis. Reviewed, dictated and finalized at location A.
--- NOTE | ~2024-08-07 | US_ITS ---
EXAMINATION: US renal BI DATE: 08/08/2024 15:16 INDICATION: Acute kidney injury. TECHNIQUE: Multiple ultrasound grayscale images of the kidneys were obtained. COMPARISON: Ultrasound 03/23/2024 FINDINGS: The right kidney measures 9.4 x 5.0 x 4.5 cm. The left kidney measures 9.3 x 5.2 x 4.7 cm. The kidney s demonstrate normal parenchymal echogenicity. There is a 2.8 cm cyst in left kidney. There is no hyd ronephrosis. The bladder is normal. IMPRESSION: 1. Normal kidney sizes. No hydronephrosis. Reviewed, dictated and finalized at location A.
--- NOTE | ~2024-08-07 | XR_ITS ---
Portable chest x-ray Comparison: 08/11/2024 Clinical History: Shortness of breath Findings: Minimal pulmonary haziness present. No definite pleural effusions. Cardiomediastinal jimy daly is stable, status post valve replacement with pacemaker device. Bones and soft tissues are unr emarkable. Impression: Suspected minimal pulmonary edema. Stable cardiomegaly, status post probable placement with pacemaker device. Reviewed, dictated and finalized at location . Impression: Suspected minimal pulmonary edema. Stable cardiomegaly, status post probable placement with pacemaker device.
--- NOTE | ~2024-08-07 | XR_ITS ---
EXAMINATION: XR tibia fibula RT 2V DATE: 08/07/2024 15:05 INDICATION: Right lower leg wound in the lateral calf. TECHNIQUE: 2 views of right tibia and fibula on 3 radiographs were obtained. COMPARISON: None. FINDINGS: Alignment is normal. No fracture. Joint spaces are normal. There are surgical clips medial to the knee. IMPRESSION: 1. No evidence of osteomyelitis. Reviewed, dictated and finalized at location A.
--- NOTE | 2024-08-07 13:34 | ED.WOUNDLAC ---
HPI - Wound/Laceration General Chief Complaint: Wound/Laceration <KAREN Lenz Last Filed: 08/07/24 13:48> Stated Complaint: from wound care center, needs eval of wounds <KAREN Lenz Last Filed: 08/07/24 13:48> Time Seen by Provider: 08/07/24 13:34 <KAREN Lenz Last Filed: 08/07/24 13:48> Focused HPI: Patient is a 74 y/o female who presents to the ED with c/o wounds. Patient reports having a chronic wound to her left heel and right lateral varela since around February of this year. She has been seeing wound care as an outpatient. She was sent from Wound Care today for evaluation of wet gangrene to left heel. Patient is mostly non-ambulatory, uses a WC. She does also report diffuse swelling in her lower extremities for the past few weeks. Hx of CHF. Is on bumex and metolazone. Denies SOB. Denies any fevers. She is not a diabetic that she is aware of. GENERAL: Chronically ill appearing, obese with BMI of 32.6, and in no acute distress. HEAD: Normocephalic, atraumatic. CHEST: Clear to auscultation. ?No respiratory distress. HEART: Regular rate and rhythm.? MSK: Diffuse pitting edema in BLE, 3+, appears symmetric. Tonny lower legs bandaged. NEURO: ?Alert and oriented x3. Patient screened in triage and initial orders placed.? ?Additional care and disposition to be based upon?diagnostic testing and treatment. <Milka Rhodes PA-C - Last Filed: 08/07/24 13:48> Source: patient <KAREN Lenz Last Filed: 08/07/24 13:48> Mode of arrival: wheelchair <KAREN Lenz Last Filed: 08/07/24 13:48> Limitations: no limitations <KAREN Lenz Last Filed: 08/07/24 13:48> History of Present Illness HPI narrative: I agree with the HPI as documented in the medical screening exam. Review of wound care notes demonstrate patient had purulent drainage with spongy tissue on examination with concern for deep space infection. The patient was transferred for evaluation. <Erick Vincent MD - Last Filed: 08/07/24 21:33> Related Data Home Medications: Home Medications Medication Instructions Recorded Confirmed aspirin 325 mg tablet 325 mg PO DAILY 07/09/21 05/20/24 amiodarone 200 mg tablet (Pacerone) 200 mg PO DAILY 09/28/21 05/20/24 carvedilol 3.125 mg tablet 3.125 mg PO Q12H 09/29/21 05/20/24 levothyroxine 75 mcg tablet 75 mcg PO DAILY 03/20/24 05/20/24 metolazone 2.5 mg tablet 2.5 mg PO DAILY 04/24/24 05/20/24 <Milka Rhodes PA-C - Last Filed: 08/07/24 13:48> Allergies/Adverse Reactions: Allergies Allergy/AdvReac Type Severity Reaction Status Date / Time No Known Allergies Allergy Verified 08/07/24 17:53 <Milka Rhodes PA-C - Last Filed: 08/07/24 13:48> Review of Systems Review of Systems: All systems reviewed & are unremarkable except as noted in HPI and below <Erick Vincent MD - Last Filed: 08/07/24 21:33> [facility] Past Medical History Medical History: Medical History Acute non-ST elevation myocardial infarction (NSTEMI) Anemia Aortic stenosis Atrial fibrillation with rapid ventricular response CAD (coronary artery disease) Cardiomyopathy Ejection fraction as low as 10 to 15%, most recent EF was 36%. Status post ICD insertion. Chronic kidney disease Chronic obstructive pulmonary disease Congestive heart failure Contraindication to anticoagulation therapy Secondary to GI bleed. Status post left atrial appendage ligation. Coronary artery disease Status post 2 vessel bypass. Depression GI bleed Gout History of placement of internal cardiac defibrillator Hyperlipidemia Kidney stones LBBB (left bundle branch block) Nephrolithiasis Nocturnal hypoxia Paroxysmal atrial fibrillation Psoriasis Subcapital fracture of right hip Tobacco dependence <Milka Rhodes PA-C - Last Filed: 08/07/24 13
[2024-08-07 15:17] LABS: Estimated CRCL calculation 14 ml/min; Estimated Glomerular Filt Rate 15
[2024-08-07] MEDS: SODIUM CHLORIDE 0.9% IV 1,000 ML 999 ML IV CONT (16:20)
[2024-08-07 16:31] LABS: Basophils Percent Auto 0.5 % (0.2-1.2); Eosinophils Absolute Auto 0.5 K/mm3 (0-0.3); Eosinophils Percent Auto 7.7 % (0-4.4); Hematocrit 27.8 % (37.0-47.0); Hemoglobin 9.1 g/dL (12.0-15.0); Immature Granulocyte Absolute 0.02 K/mm3 (0.00-0.031); Immature Granulocyte Percent A 0.3 % (0-0.5); Lymphocytes Absolute Auto 0.42 K/mm3 (0.9-3.2); Lymphocytes Percent Auto 6.4 % (18.3-44.2); Mean Corpuscular HGB Conc 32.7 g/dl (32-36); Mean Corpuscular Hemoglobin 26.7 pg (26-34); Mean Corpuscular Volume 81.5 fl (80-100); Mean Platelet Volume 9.9 fl (7.4-10.4); Monocytes Absolute Auto 0.4 K/mm3 (0.1-0.6); Monocytes Percent Auto 6.4 % (2.6-8.5); Neutrophils Absolute Auto 5.2 K/mm3 (1.3-6.7); Neutrophils Percent Auto 78.7 % (45.5-73.1); Platelet Count Result 326 k/mm3 (150-375); Red Blood Count 3.41 M/mm3 (4.2-5.4); Red Cell Distribution Width 16.1 % (11.5-14.5); White Blood Count 6.6 K/mm3 (4.5-10.0)
[2024-08-07 16:46] LABS: Lactic Acid Reflex 1.4 mmol/L (0.7-2.0)
[2024-08-07 16:48] LABS: INR 1.1; Prothrombin Time 14.8 Seconds (11.1-14.7)
[2024-08-07 16:49] LABS: Partial Thromboplastin Time 35.7 Seconds (22.3-36.8)
[2024-08-07 16:50] LABS: Alanine Aminotransferase 15 U/L (6-35); Albumin Level 3.6 g/dL (3.5-5.1); Alkaline Phosphatase 140 U/L (38-126); Anion Gap 4 mmol/L (4-12); Aspartate Amino Transferase 34 U/L (14-36); Bilirubin,Total 0.3 mg/dL (0.2-1.3); Blood Urea Nitrogen 93 mg/dL (7-17); Calcium 9.2 mg/dL (8.4-10.2); Carbon Dioxide 34 mmol/L (22-30); Chloride 93 mmol/L (98-107); Estimated CRCL calculation 14 ml/min; Estimated Glomerular Filt Rate 15; Glucose 129 mg/dL (65-110); Potassium 3.6 mmol/L (3.4-5.0); Sodium 131 mmol/L (137-145)
[2024-08-07 16:55] LABS: NT Pro B Type Natriuretic Pept 5740 pg/mL (19.9-100)
[2024-08-07 17:02] LABS: CRP 15.8 mg/dL (<1.0)
[2024-08-07] MEDS: SODIUM CHLORIDE 0.9% IV 500 ML BAG IRRIGATION (17:27)
[2024-08-07 17:30] LABS: Erythrocyte Sedimentation Rate 101 mm/hr (0-20)
[2024-08-07] MEDS: MEROPENEM 1 GM/NS 100 ML 1 GM/100 ML BAG IVPB (18:10)
[2024-08-07] MEDS: NOREPINEPHRINE 8 MG/D5W 250 ML 8 MG/250 ML BAG 9.38 MG IV CONT (18:18)
[2024-08-07] MEDS: CLINDAMYCIN 900 MG/D5W 50 ML 900 MG/50 ML PIGGYBACK 50 MG IVPB (18:47)
--- NOTE | 2024-08-07 19:16 | PC.NURSE ---
pt blood pressure dropped to 94/37 and MAP of 52. at this time. titrate the norepi to 7mcg/min per protocol
[2024-08-07 19:43] LABS: Add Urine Microscopic? YES; Appearance Urine Clear (Clear); Bacteria Urine 1+ /hpf; Bilirubin Urine Negative (Negative); Blood Urine Negative (Negative); Color Urine Yellow (Yellow); Glucose Urine UA Negative (Negative); Ketones Urine Negative (Negative); Leukocyte Esterase Ur 2+ LEU/UL (Negative); Need Manual Microscopic Reviewed; Nitrate Urine Negative (Negative); Protein Urine Negative (Negative); RBC Urine 0-2 /hpf (0-2); Squamous Epithelial Cell Urine Few /hpf (Few); Urobilinogen Urine 0.2 mg/dL (<2.0); WBC Urine 21-50 /hpf (0-3); pH Urine 5.5 (5.0-9.0)
[2024-08-07] MEDS: VANCOMYCIN 1,250 MG/NS 250 ML 1,250 MG/250 ML BAG 166.67 MG IVPB (20:11)
--- NOTE | 2024-08-07 20:15 | PC.NURSE ---
at 2008 the norepi was titrated to 9mcg/min due to the MAP being below 65
--- NOTE | 2024-08-07 20:23 | PM.IMHP ---
H&P: HPI History of Present Illness Date/Time: 08/07/24 20:23 Chief Complaint: heel wound Narrative: This is a 74-year-old female with past medical history significant for chronic left heel ulcer, hypothyroidism, cardiomyopathy, congestive heart failure, chronic kidney disease. Patient presents to the emergency room was sent from Wound Care after he was felt that there was worsening of the wound once patient arrived to the emergency room she was found to have a low blood pressure patient denies any fevers, rigors, chills has had good appetite no diarrhea no nausea no vomiting no pain or burning with urination. Preliminary workup was significant for urinalysis with numerous WBCs present. Patient was placed on vasopressors. Patient has been admitted for further evaluation management and treatment. EXAMINATION: XR tibia fibula RT 2V DATE: 08/07/2024 15:05 INDICATION: Right lower leg wound in the lateral calf. TECHNIQUE: 2 views of right tibia and fibula on 3 radiographs were obtained. COMPARISON: None. FINDINGS: Alignment is normal. No fracture. Joint spaces are normal. There are surgical clips medial to the knee. IMPRESSION: 1. No evidence of osteomyelitis. EXAMINATION: CT foot LT wo con DATE: 08/07/2024 15:29 INDICATION: Left foot gangrene. TECHNIQUE: Computed tomography (CT) of the left foot was performed without intravenous contrast. Automated exposure control and iterative reconstruction technique were employed. The dose-length product was 485.78 mGy-cm. COMPARISON: None FINDINGS: Bone alignment is normal. No acute fracture. There is heterotopic ossification distal to medial malleolus. Osteopenia is noted, which decreases sensitivity. There is mild osteoarthritis of first metatarsophalangeal joint and some of the interphalangeal joints and midfoot joints. There are enthesophytes at the posterior and plantar aspects of calcaneal tuberosity. There is widespread subcutaneous edema in the foot and ankle. IMPRESSION: 1. No specific evidence of osteomyelitis. Review of Systems Review of Systems: XR chest 2V 08/07/2024 15:05 Indication: Swelling. Procedure: 2 view chest Comparison: Comparison to multiple prior studies sequentially, with oldest reviewed study dated 09/13/2022. Findings: Status post median sternotomy for CABG. Heart size normal. There is a prosthetic heart valve. No focal air space disease, pulmonary edema, pleural effusion or suspected pneumothorax. Impression: 1: No acute cardiopulmonary disease. EXAMINATION: CT foot LT wo con DATE: 08/07/2024 15:29 INDICATION: Left foot gangrene. TECHNIQUE: Computed tomography (CT) of the left foot was performed without intravenous contrast. Automated exposure control and iterative reconstruction technique were employed. The dose-length product was 485.78 mGy-cm. COMPARISON: None FINDINGS: Bone alignment is normal. No acute fracture. There is heterotopic ossification distal to medial malleolus. Osteopenia is noted, which decreases sensitivity. There is mild osteoarthritis of first metatarsophalangeal joint and some of the interphalangeal joints and midfoot joints. There are enthesophytes at the posterior and plantar aspects of calcaneal tuberosity. There is widespread subcutaneous edema in the foot and ankle. IMPRESSION: 1. No specific evidence of osteomyelitis. CHEST RADIOGRAPH CLINICAL HISTORY: Central line placement . COMPARISON: 08/07/2024 TECHNIQUE: Single portable view of the chest. FINDINGS Right internal jugular central venous catheter is identified with its tip projecting over the cavoatrial junction, in good position. The left lateral mid lung is partially obscured due to pacemaker/AICD generator. Wires project over the right atrium, coronary sinus and right ventricle. Sternal wires and mediastinal clips are identified, the wires are midline and intact. Ring is identified projecting over the mitral annulus. Clip project
[2024-08-07 20:53] LABS: Hemoglobin A1C 5.7 % (<5.7)
--- NOTE | 2024-08-07 21:15 | ADMGEN ---
This patient, Monica Rangel, was admitted to Intensive Care Unit-4. Patient/family oriented to hospital policies and general routines including ID bracelet, bed and alarms, visiting hours, pain management, procedures, bathroom and other care routines, personal items, smoking policy, room service/diet, and visiting hours. Information on how to activate the Rapid Response Team has been discussed. Patient/Family are encouraged to report perceived risks to care and to ask questions if they do not understand what they are told or what they should do.
[2024-08-07] MEDS: NOREPINEPHRINE 8 MG/D5W 250 ML 8 MG/250 ML BAG 16.88 MG IV CONT (22:15)
[2024-08-07 23:32] LABS: MRSA (PCR) NOT DETECTED (NOT DETECTE)
[2024-08-08] VITALS (74 sets, daily range): BP systolic 90–155; BP diastolic 32–126; PULSE 74–94; RESP 11–29; TEMP 36.1–38; O2SAT 90–100; BMI 33.4
[2024-08-08] MEDS: LEVOTHYROXINE SODIUM 75 MCG TABLET PO (06:41)
[2024-08-08] MEDS: allopurinoL 50 MG TABLET PO (06:41)
[2024-08-08 06:43] LABS: Basophils Absolute Auto 0.1 K/mm3 (0.0-0.1); Basophils Percent Auto 0.5 % (0.2-1.2); Eosinophils Absolute Auto 0.3 K/mm3 (0-0.3); Eosinophils Percent Auto 2.8 % (0-4.4); Hematocrit 26.7 % (37.0-47.0); Hemoglobin 8.9 g/dL (12.0-15.0); Immature Granulocyte Absolute 0.04 K/mm3 (0.00-0.031); Immature Granulocyte Percent A 0.4 % (0-0.5); Lymphocytes Absolute Auto 0.31 K/mm3 (0.9-3.2); Mean Corpuscular HGB Conc 33.3 g/dl (32-36); Mean Corpuscular Hemoglobin 26.8 pg (26-34); Mean Corpuscular Volume 80.4 fl (80-100); Mean Platelet Volume 9.6 fl (7.4-10.4); Monocytes Absolute Auto 0.7 K/mm3 (0.1-0.6); Monocytes Percent Auto 6.8 % (2.6-8.5); Neutrophils Percent Auto 86.5 % (45.5-73.1); Platelet Count Result 353 k/mm3 (150-375); Red Blood Count 3.32 M/mm3 (4.2-5.4); Red Cell Distribution Width 15.9 % (11.5-14.5); White Blood Count 10.4 K/mm3 (4.5-10.0)
[2024-08-08] MEDS: NOREPINEPHRINE 8 MG/D5W 250 ML 8 MG/250 ML BAG 24.38 MG IV CONT (06:43)
[2024-08-08 06:54] LABS: Anion Gap 0 mmol/L (4-12); Blood Urea Nitrogen 75 mg/dL (7-17); Calcium 8.9 mg/dL (8.4-10.2); Carbon Dioxide 34 mmol/L (22-30); Chloride 100 mmol/L (98-107); Estimated CRCL calculation 20 ml/min; Estimated Glomerular Filt Rate 21; Glucose 128 mg/dL (65-110); Potassium 3.1 mmol/L (3.4-5.0); Sodium 134 mmol/L (137-145)
--- NOTE | 2024-08-08 08:38 | WPDCNINT ---
Assessment and Plan Assessment and plan (1) Septic shock: Code(s): A41.9 - Sepsis, unspecified organism; R65.21 - Severe sepsis with septic shock Status: Acute Assessment and Plan: Septic shock secondary to wet gangrene ulcer of the left foot and UTI Patient received conservative IV fluid bolus due to history of congestive heart failure and volume overload Continue Levophed titration to maintain mean arterial pressure Blood and urine cultures have been sent and are pending Empiric cefepime and vancomycin Check procalcitonin level CT scan negative for any evidence of osteomyelitis or subcutaneous gas (2) Acute on chronic kidney failure: Qualifiers: Acute renal failure type: unspecified Code(s): N17.9 - Acute kidney failure, unspecified; N18.9 - Chronic kidney disease, unspecified Status: Acute Assessment and Plan: Patient has chronic kidney disease and sees Nephrology as outpatient. Presented with creatinine that was elevated to 3.1. Likely secondary to shock. Creatinine improved with IV fluids and vasopressors Monitor urine output electrolytes and creatinine (3) Gangrene of left foot: Code(s): I96 - Gangrene, not elsewhere classified Status: Acute Assessment and Plan: See above (4) Acute UTI: Code(s): N39.0 - Urinary tract infection, site not specified Status: Acute Assessment and Plan: See above (5) Hypothyroidism: Onset Date: 06/2021 Code(s): E03.9 - Hypothyroidism, unspecified Status: Suspected Assessment and Plan: Continue levothyroxine Check TSH (6) Paroxysmal atrial fibrillation: Code(s): I48.0 - Paroxysmal atrial fibrillation Status: Acute Assessment and Plan: Currently in paced rhythm Aspirin and amiodarone Patient not on anticoagulation as an outpatient (7) Cardiomyopathy: Qualifiers: Cardiomyopathy type: ischemic Qualified Code(s): I25.5 - Ischemic cardiomyopathy Code(s): I42.9 - Cardiomyopathy, unspecified Status: Acute Assessment and Plan: Ischemic cardiomyopathy Echo done in 02/2024 reviewed Hold Entresto Patient will need eventually diuretics but at this time will hold due to sepsis (8) Chronic obstructive pulmonary disease: Code(s): J44.9 - Chronic obstructive pulmonary disease, unspecified Status: Chronic Assessment and Plan: P.r.n. bronchodilators (9) Bilateral lower extremity edema: Code(s): R60.0 - Localized edema Status: Acute Assessment and Plan: Secondary to congestive heart failure and CKD Lower extremity Dopplers ordered to rule out any DVT Plan DVT prophylaxis -Lovenox Nutrition -npo Code Status -patient wishes to be DNR and DNI which have confirmed with the patient Total Critical Care Time - 40 minutes Due to a high probability of clinically significant, life threatening deterioration, the patient required my highest level of preparedness to intervene emergently and I personally spent this critical care time directly and personally managing the patient. This critical care time included obtaining a history; examining the patient; pulse oximetry; ordering and review of studies; arranging urgent treatment with development of a management plan; evaluation of patient's response to treatment; frequent reassessment; and discussions with other providers. It was exclusive of separately billable procedures and treating other patients and teaching time. Please see Assessment and Plan section and the rest of the note for further information on patient assessment and treatment [facility] Consult Note Consult date: 08/08/24 Reason for consult: Foot infection, septic shock HPI: Monica Rangel is a 74 year old female left plantar heel pressure ulcer, CKD, COPD, NSTEMI, AFib, CAD, CABG, depression, HLD, kidney stones, pacemaker/defibrilator in place, psoriasis, and current smoking. Presented yest
[2024-08-08] MEDS: AMIODARONE HCL 200 MG TABLET PO (09:50)
[2024-08-08] MEDS: POTASSIUM CHLORIDE 20 MEQ ER TABLET 40 MEQ PO ×2 (09:51→14:14)
[2024-08-08] MEDS: GABAPENTIN 100 MG CAPSULE 200 MG PO ×2 (09:51→17:07)
[2024-08-08] MEDS: CEFEPIME 1 GM/NS 50 ML 1 GM/50 ML BAG IVPB ×2 (09:51→20:45)
--- NOTE | 2024-08-08 10:34 | PM.CNGS ---
Assessment and Plan Assessment and plan (1) Gangrene of left foot: Code(s): I96 - Gangrene, not elsewhere classified Status: Acute Assessment and Plan: The patient has a chronic decubitus left heel ulcer with wet gangrene. This is a possible source for her sepsis. We would recommend surgical debridement. Will start local wound care with Dakin's dressing changes while planning for surgery. Continue IV antibiotics. She should keep her left heel elevated off the bed at all times with either heel boots or a pillow. Hemoglobin A1c repeated on this admission and is 5.7. I have also ordered ABIs to evaluate her arterial flow given the chronic heel ulcer and weak peripheral pulses. Will continue to follow along. (2) Septic shock: Code(s): A41.9 - Sepsis, unspecified organism; R65.21 - Severe sepsis with septic shock Status: Acute Assessment and Plan: Secondary to UTI or gangrenous left heel ulcer. Continue IV antibiotics. Blood cultures pending. She currently has a right IJ central line and is on vasopressors, wean as tolerated. Continue critical care management and supportive care per black belt. (3) Acute UTI: Code(s): N39.0 - Urinary tract infection, site not specified Status: Acute Assessment and Plan: Continue antibiotics. (4) Acute on chronic kidney failure: Qualifiers: Acute renal failure type: unspecified Code(s): N17.9 - Acute kidney failure, unspecified; N18.9 - Chronic kidney disease, unspecified Status: Acute Assessment and Plan: Creatinine 3.1 on admission and down to 2.3 today after IV fluids, which is closer to her baseline. (5) Paroxysmal atrial fibrillation: Code(s): I48.0 - Paroxysmal atrial fibrillation Status: Acute (6) Chronic obstructive pulmonary disease: Code(s): J44.9 - Chronic obstructive pulmonary disease, unspecified Status: Chronic (7) Cardiomyopathy: Qualifiers: Cardiomyopathy type: ischemic Qualified Code(s): I25.5 - Ischemic cardiomyopathy Code(s): I42.9 - Cardiomyopathy, unspecified Status: Acute (8) Tobacco dependence: Code(s): F17.200 - Nicotine dependence, unspecified, uncomplicated Status: Acute Assessment and Plan: Encouraged cessation. (9) Bilateral lower extremity edema: Code(s): R60.0 - Localized edema Status: Acute (10) Ulcer of right leg: Code(s): L97.919 - Non-pressure chronic ulcer of unspecified part of right lower leg with unspecified severity Status: Acute Assessment and Plan: Smaller necrotic right lateral leg ulcer that appears superficial, but does have a small area of loose necrotic tissue that would benefit from debridement when she is taken to the OR. See plan above. Plan I have discussed the patient's case and plan of care with Dr. Sneed. Thank you for allowing us to see the patient in consultation and we will continue to follow along with you. History of Present Illness Consult details Consult date: 08/08/24 Reason for consult: other (Gangrenous left heel wound) Requesting physician: Erick Vincent MD Narrative: This is a 74-year-old woman with PMH of CKD, COPD, NSTEMI, AFib, CAD, pacemaker/defibrillator in place, and multiple other medical problems, who we have been asked to see in surgical consultation for a gangrenous left heel wound. She reports being hospitalized at [facility] in February of 2024. Following this hospitalization, she was discharged to [place] rehab and was found to have a left heel wound. She has been treated with local wound care and was eventually discharged home with her . She reports having decreased mobility and has not been ambulating for at least the past 4-6 weeks. Per staff, she has been sedentary for months. She primarily sits in a wheelchair at home. She has recently been following the wound care nurses in the wound clinic and was ev
[2024-08-08] MEDS: SOD HYPOCHLORITE 1/4 STRENGTH 473 ML 1 APPLIC TOPICAL ×2 (10:42→20:44)
[2024-08-08] MEDS: COLLAGENASE OINT 30 GM TUBE 1 APPLIC TOPICAL (10:42)
[2024-08-08 10:53] LABS: Procalcitonin 0.1 ng/mL
[2024-08-08 12:27] LABS: Free T4 Free Thyroxine Reflex 2.46 ng/dL (0.78-2.19)
[2024-08-08] MEDS: MIDODRINE HCL 10 MG TABLET PO ×2 (12:34→17:07)
--- NOTE | 2024-08-08 12:37 | PM.CNNEP ---
Assessment and Plan Assessment and plan (1) FRANK (acute kidney injury): Code(s): N17.9 - Acute kidney failure, unspecified Status: Acute Assessment and Plan: as noted on presentation with a creatinine of 3.1mg/dl improvement noted with current interventions... multifactorial etiology: prerenal factors hemodynamic instability/shock infection/sepsis diuretic/entresto use prior to admission check urine studies and CPK follow-up on renal ultrasound follow trend of repeat labs and UOP (2) Chronic kidney disease, stage 4 (severe): Code(s): N18.4 - Chronic kidney disease, stage 4 (severe) Status: Chronic Assessment and Plan: baseline creatinine runs ~ 1.7 - 2.2mg/dl based on outpatient evaluation, thought to be secondary to previous HTN and chronic prerenal azotemia from her CHF/cardiomyopathy with ongoing need for diuretic therapy (3) Septic shock: Code(s): A41.9 - Sepsis, unspecified organism; R65.21 - Severe sepsis with septic shock Status: Acute Assessment and Plan: presumably due to wet gangrene ulcer/wound of left heel and UTI s/p conservative IVF resuscitationdue to know history of cardiomyopathy/CHF susbsequently started on vsopressortherapy due to persistent hypotensions follow culture data on antibiotics imaging of left leg/foot negative for SQ gas, osteomyeltiis, or abscess (4) Gangrene of left foot: Code(s): I96 - Gangrene, not elsewhere classified Status: Acute Assessment and Plan: presumed source of sepsis Surgery following noted plans for surigical debridement local wound care (5) Acute UTI: Code(s): N39.0 - Urinary tract infection, site not specified Status: Acute Assessment and Plan: admission UA highly suggestive follow culture data on antibiotics (6) Cardiomyopathy: Qualifiers: Cardiomyopathy type: ischemic Qualified Code(s): I25.5 - Ischemic cardiomyopathy Code(s): I42.9 - Cardiomyopathy, unspecified Status: Acute Assessment and Plan: known ischemic cardiomyopathy last Echo noted holding entresto and diuretics for now follow volume status (7) Bilateral lower extremity edema: Code(s): R60.0 - Localized edema Status: Acute Assessment and Plan: due to known history of CHF along with cKD supportive therapy I will continue to follow the patient with you while she remains hospitalized and make further recommendations as deemed necessary. Thank you for allowing me to participate in the care of this patient. History of Present Illness Reason for Consult Consult date: 08/08/24 Reason for consult: acute renal failure (on chronic renal failure) Chief Complaint Chief complaint: Sepsis/Gangrene of Left Foot History of Present Illness Narrative: The patient is a 74-year-old female with extensive past medical history as outlined below who presented to [facility] Emergency room from the wound Care Clinic due to worsening appearance of her left heel wound/ulcer. The patient reports that her home health nurse noted that the left heel ulcer/ wound seemed to have changed over the last few days. She then subsequently went to the wound care clinic yesterday for follow-up and was informed that the wound/ ulcer appeared to be infected with worsening gangrenous changes. It was recommended that she come to the ER for further assessment.In spite of the worsening clinical appearance of the wound, the patient's cell stated that she felt reasonably well. She denies any fevers, chills, rigors, chest pain, shortness of breath, cough, nausea, vomiting, abdominal pain, diarrhea, dizziness, lightheadedness, hematuria, hematochezia, melena, or constipation. Workup and evaluation in the emergency room demonstrated the patient be hypotensive but afebrile and by clinical exam, she appeared to have significant worsening of her left josé
--- NOTE | 2024-08-08 12:37 | P.CONNP_ITS ---
Assessment and Plan Assessment and plan (1) FRANK (acute kidney injury): Code(s): N17.9 - Acute kidney failure, unspecified Status: Acute Assessment and Plan: * as noted on presentation with a creatinine of 3.1mg/dl * improvement noted with current interventions... * multifactorial etiology: * prerenal factors * hemodynamic instability/shock * infection/sepsis * diuretic/entresto use prior to admission * check urine studies and CPK * follow-up on renal ultrasound * follow trend of repeat labs and UOP (2) Chronic kidney disease, stage 4 (severe): Code(s): N18.4 - Chronic kidney disease, stage 4 (severe) Status: Chronic Assessment and Plan: * baseline creatinine runs ~ 1.7 - 2.2mg/dl * based on outpatient evaluation, thought to be secondary to previous HTN and chronic prerenal azotemia from her CHF/cardiomyopathy with ongoing need for diuretic therapy (3) Septic shock: Code(s): A41.9 - Sepsis, unspecified organism; R65.21 - Severe sepsis with septic shock Status: Acute Assessment and Plan: * presumably due to wet gangrene ulcer/wound of left heel and UTI * s/p conservative IVF resuscitationdue to know history of cardiomyopathy/CHF * susbsequently started on vsopressortherapy due to persistent hypotensions * follow culture data * on antibiotics * imaging of left leg/foot negative for SQ gas, osteomyeltiis, or abscess (4) Gangrene of left foot: Code(s): I96 - Gangrene, not elsewhere classified Status: Acute Assessment and Plan: * presumed source of sepsis * Surgery following * noted plans for surigical debridement * local wound care (5) Acute UTI: Code(s): N39.0 - Urinary tract infection, site not specified Status: Acute Assessment and Plan: * admission UA highly suggestive * follow culture data * on antibiotics (6) Cardiomyopathy: Qualifiers: Cardiomyopathy type: ischemic Qualified Code(s): I25.5 - Ischemic cardiomyopathy Code(s): I42.9 - Cardiomyopathy, unspecified Status: Acute Assessment and Plan: * known ischemic cardiomyopathy * last Echo noted * holding entresto and diuretics for now * follow volume status (7) Bilateral lower extremity edema: Code(s): R60.0 - Localized edema Status: Acute Assessment and Plan: * due to known history of CHF along with cKD * supportive therapy I will continue to follow the patient with you while she remains hospitalized and make further recommendations as deemed necessary. Thank you for allowing me to participate in the care of this patient. History of Present Illness Reason for Consult Consult date: 08/08/24 Reason for consult: acute renal failure (on chronic renal failure) Chief Complaint Chief complaint: Sepsis/Gangrene of Left Foot History of Present Illness Narrative: The patient is a 74-year-old female with extensive past medical history as outlined below who presented to [facility] Emergency room from the wound Care Clinic due to worsening appearance of her left heel wound/ulcer. The patient reports that her home health nurse noted that the left heel ulcer/ wound seemed to have changed over the last few days. She then subsequently went to the wound care clinic yesterday for follow-up and was informed that the wound/ ulcer appeared to be infected with worsening gangrenous changes. It was recommended that she come to the ER for further assessment.In spite of the worsening clinical appearance of t
[2024-08-08] MEDS: CENTRAL LINE FLUSH 10 ML IV PUSH ×2 (14:14→20:44)
--- NOTE | 2024-08-08 14:32 | PM.IMPN ---
Progress Note: A&P Assessment and Plan (1) Septic shock: Code(s): A41.9 - Sepsis, unspecified organism; R65.21 - Severe sepsis with septic shock Status: Acute Assessment and Plan: Patient presented to the wound clinic for heel drainage and sent to the ED. In the ED, BP was normal initially but dropped to 63/67. She was started on appropriate abx after cultures obtained. Central line was placed and Levophed started for septic shock secondary to wet gangrene ulcer of the left foot and UTI Patient received conservative IV fluid bolus due to history of congestive heart failure and volume overload Imaging did not reveal evidence of osteomyelitis. Continue Levophed titration to maintain mean arterial pressure BCx NGTD. UCx pending. Hx of EColi UTI but no ESBL. Continue empiric cefepime and vancomycin Appreciate melon packer input\ (2) Acute on chronic kidney failure: Qualifiers: Acute renal failure type: unspecified Code(s): N17.9 - Acute kidney failure, unspecified; N18.9 - Chronic kidney disease, unspecified Status: Acute Assessment and Plan: Patient has CKD follows with nephrology. Her Cr mostly in the low 2 range. Cr was elevated to 3.1. Likely secondary to shock. Renal US showing normal sized kidneys. Creatinine improved with IV fluids and vasopressors and back down to 2.3 which is probably close to her baseline Monitor urine output, electrolytes and creatinine (3) Gangrene of left foot: Code(s): I96 - Gangrene, not elsewhere classified Status: Acute Assessment and Plan: As above. Surgery consulted for possible debridement. Venous doppler negative for DVT BRISA showing moderately decreased ABIs with the Right and Left both at 0.6 consistent with arterial occlusive disease. (4) Acute UTI: Code(s): N39.0 - Urinary tract infection, site not specified Status: Acute Assessment and Plan: UA is consistent with UTI. UCx collected. Abx started. UCx pending. Follow up on UCx results. (5) Hypothyroidism: Onset Date: 06/2021 Code(s): E03.9 - Hypothyroidism, unspecified Status: Suspected Assessment and Plan: TSH 5.2 with FT4 elevated at 2.46. Either central hyperthyroidism, noncompliance with medications or more likely related to sepsis. Hold levothyroxine. (6) Paroxysmal atrial fibrillation: Code(s): I48.0 - Paroxysmal atrial fibrillation Status: Acute Assessment and Plan: Tele showing paced rhythm. Not on anticoagulation but takes a full Aspirin and amiodarone Follow (7) Cardiomyopathy: Qualifiers: Cardiomyopathy type: ischemic Qualified Code(s): I25.5 - Ischemic cardiomyopathy Code(s): I42.9 - Cardiomyopathy, unspecified Status: Acute Assessment and Plan: Patient with known ischemic cardiomyopathy. Echo 03/20/24 showing normal LV chamber dimension with LV systolic function mildly reduced (EF 45-50%), an abnormal LV septal wall motion related to a post-operative state and trace mitral regurgitation. Hx of MV replacement and valve was well seated/ Holding Entresto, Bumex and Metolazone Patient will need eventually diuretics but at this time will hold due to sepsis (8) Chronic obstructive pulmonary disease: Code(s): J44.9 - Chronic obstructive pulmonary disease, unspecified Status: Chronic Assessment and Plan: Scattered wheezes. P.r.n. bronchodilators (9) Bilateral lower extremity edema: Code(s): R60.0 - Localized edema Status: Acute Assessment and Plan: Secondary to congestive heart failure and CKD Lower extremity Dopplers negative for DVT Diuretics when able Plan DVT prophylaxis -Lovenox Code Status -DNR and DNI Subjective Date/time seen: 08/08/24 14:32 Interval history: 74yo female with sCHF, hypothyroidism, CKD and chronic left heel ulcers here for worsening heel wounds. P
[2024-08-08] MEDS: IPRATROPIUM 0.5 MG/ALBUTEROL SULFATE 2.5 MG AMPUL.NEB 3 ML INHALATION (16:02)
[2024-08-08 18:07] LABS: Vancomycin Random 11.4 ug/mL (10-20)
[2024-08-08] MEDS: VANCOMYCIN 1,000 MG/NS 250 ML 1,000 MG/250 ML BAG 250 MG IVPB (18:38)
[2024-08-09] VITALS (62 sets, daily range): BP systolic 80–132; BP diastolic 37–92; PULSE 73–93; RESP 15–21; TEMP 36.8–38; O2SAT 94–100
[2024-08-09] MEDS: NOREPINEPHRINE 8 MG/D5W 250 ML 8 MG/250 ML BAG 13.13 MG IV CONT (01:42)
[2024-08-09] MEDS: IPRATROPIUM 0.5 MG/ALBUTEROL SULFATE 2.5 MG AMPUL.NEB 3 ML INHALATION ×2 (02:13→11:13)
[2024-08-09 04:53] LABS: Hematocrit 24.3 % (37.0-47.0); Hemoglobin 7.7 g/dL (12.0-15.0); Mean Corpuscular HGB Conc 31.7 g/dl (32-36); Mean Corpuscular Volume 82.1 fl (80-100); Mean Platelet Volume 9.3 fl (7.4-10.4); Platelet Count Result 296 k/mm3 (150-375); Red Blood Count 2.96 M/mm3 (4.2-5.4); Red Cell Distribution Width 15.9 % (11.5-14.5)
[2024-08-09 05:11] LABS: Alanine Aminotransferase 12 U/L (6-35); Alkaline Phosphatase 84 U/L (38-126); Anion Gap 3 mmol/L (4-12); Aspartate Amino Transferase 21 U/L (14-36); Bilirubin,Total 0.3 mg/dL (0.2-1.3); Blood Urea Nitrogen 60 mg/dL (7-17); Calcium 8.9 mg/dL (8.4-10.2); Carbon Dioxide 30 mmol/L (22-30); Chloride 104 mmol/L (98-107); Estimated CRCL calculation 24 ml/min; Estimated Glomerular Filt Rate 26; Glucose 134 mg/dL (65-110); Magnesium 1.7 mg/dL (1.6-2.3); Phosphorus 2.5 mg/dL (2.5-4.5); Sodium 137 mmol/L (137-145)
[2024-08-09] MEDS: CENTRAL LINE FLUSH 10 ML IV PUSH ×3 (06:44→20:56)
[2024-08-09 07:25] LABS: Creatine Kinase 61 U/L (30-135)
[2024-08-09] MEDS: CEFEPIME 1 GM/NS 50 ML 1 GM/50 ML BAG IVPB ×2 (08:35→20:55)
[2024-08-09] MEDS: MAGNESIUM SULF 2 GM/WATER 50ML 2 GM/50 ML BAG IVPB (08:36)
[2024-08-09] MEDS: MIDODRINE HCL 10 MG TABLET PO ×3 (08:37→17:07)
[2024-08-09] MEDS: COLLAGENASE OINT 30 GM TUBE 1 APPLIC TOPICAL (08:37)
[2024-08-09] MEDS: AMIODARONE HCL 200 MG TABLET PO (08:37)
[2024-08-09] MEDS: ASPIRIN 325 MG TABLET PO (08:37)
[2024-08-09] MEDS: SOD HYPOCHLORITE 1/4 STRENGTH 473 ML 1 APPLIC TOPICAL ×2 (08:38→20:56)
[2024-08-09] MEDS: GABAPENTIN 100 MG CAPSULE 200 MG PO ×2 (08:38→17:07)
--- NOTE | 2024-08-09 09:04 | WPDHPUPDATE1 ---
History and Physical Update Update Date/Time: 08/09/24 09:04 History and Physical has been reviewed, including an updated exam of the patient. There are NO changes in the patient's condition. Risks, benefits, and alternatives have been discussed and questions answered. Patient agrees to proceed with procedure.
--- NOTE | 2024-08-09 09:12 | WPDINTPN ---
Progress Note: A&P Assessment and Plan (1) Septic shock: Code(s): A41.9 - Sepsis, unspecified organism; R65.21 - Severe sepsis with septic shock Status: Acute Assessment and Plan: Septic shock secondary to wet gangrene ulcer of the left foot and UTI Patient received conservative IV fluid bolus due to history of congestive heart failure and volume overload Continue Levophed titration to maintain mean arterial pressure Blood and urine cultures have been sent and are pending Continue Empiric cefepime and vancomycin 4 extremity BRISA - Moderately decreased ABIs, consistent with arterial occlusive disease. Procalcitonin level was low at 0.1 CT scan negative for any evidence of osteomyelitis or subcutaneous gas Patient is scheduled for debridement today by general surgery (2) Acute on chronic kidney failure: Qualifiers: Acute renal failure type: unspecified Code(s): N17.9 - Acute kidney failure, unspecified; N18.9 - Chronic kidney disease, unspecified Status: Acute Assessment and Plan: Patient has chronic kidney disease and sees Nephrology as outpatient. Presented with creatinine that was elevated to 3.1. Likely secondary to shock. Creatinine improved with IV fluids and vasopressors Monitor urine output electrolytes and creatinine Nephrology consulted Renal ultrasound was unremarkable (3) Gangrene of left foot: Code(s): I96 - Gangrene, not elsewhere classified Status: Acute Assessment and Plan: See above (4) Acute UTI: Code(s): N39.0 - Urinary tract infection, site not specified Status: Acute Assessment and Plan: See above (5) Hypothyroidism: Onset Date: 06/2021 Code(s): E03.9 - Hypothyroidism, unspecified Status: Suspected Assessment and Plan: Continue levothyroxine TSH and T4 levels reviewed (6) Paroxysmal atrial fibrillation: Code(s): I48.0 - Paroxysmal atrial fibrillation Status: Acute Assessment and Plan: Currently in paced rhythm Aspirin and amiodarone Patient not on anticoagulation as an outpatient (7) Cardiomyopathy: Qualifiers: Cardiomyopathy type: ischemic Qualified Code(s): I25.5 - Ischemic cardiomyopathy Code(s): I42.9 - Cardiomyopathy, unspecified Status: Acute Assessment and Plan: Ischemic cardiomyopathy Echo done in 02/2024 reviewed Hold Entresto Patient will need eventually diuretics but at this time will hold due to sepsis (8) Chronic obstructive pulmonary disease: Code(s): J44.9 - Chronic obstructive pulmonary disease, unspecified Status: Chronic Assessment and Plan: P.r.n. bronchodilators (9) Bilateral lower extremity edema: Code(s): R60.0 - Localized edema Status: Acute Assessment and Plan: Secondary to congestive heart failure and CKD Leg elevation Lower extremity Dopplers negative for DVT Plan DVT prophylaxis -Lovenox Nutrition -npo today further surgery Code Status -patient wishes to be DNR and DNI which have confirmed with the patient Total Critical Care Time - 30 minutes Due to a high probability of clinically significant, life threatening deterioration, the patient required my highest level of preparedness to intervene emergently and I personally spent this critical care time directly and personally managing the patient. This critical care time included obtaining a history; examining the patient; pulse oximetry; ordering and review of studies; arranging urgent treatment with development of a management plan; evaluation of patient's response to treatment; frequent reassessment; and discussions with other providers. It was exclusive of separately billable procedures and treating other patients and teaching time. Please see Assessment and Plan section and the rest of the note for further information on patient assessment and treatment Subjective Date/time seen: 08/09/24 Overnight events re
--- NOTE | 2024-08-09 09:33 | PC.NURSE ---
To OR per bed at 0915. Norepinepherine infusing at 2 mcgs per pump.
[2024-08-09] MEDS: BUPIVACAINE/EPINEPHRINE 0.5% 10 ML VIAL 30 ML INFILTRATE (09:48)
[2024-08-09 10:23] LABS: Eosinophil Urine None Seen % (None Seen)
[2024-08-09 10:24] LABS: Urine Eos QC 2nd Tech Confirmed
--- NOTE | 2024-08-09 10:24 | W.PM.PROC2 ---
Procedure Note - Detailed Date of Procedure 08/09/24 Pre-op Diagnosis Gangrene, stage IV left heel ulcer Post-op Diagnosis Same Procedure Performed complex debridement, washout, stage IV left heel ulcer Surgeon Beckie Franco MD Anesthesia General and Local Indications 74-year-old female presenting septic shock admitted to the ICU. Patient with a chronically infected left heel ulcer draining foul-smelling purulent material. Evidence of both wet and dry gangrene Findings 6 x 5 x 3 cm stage IV left heel ulcer Description of Procedure The patient was taken the operating room and placed in the supine position. After adequate induction of general anesthesia, the patient was prepped and draped in a normal sterile fashion. A time-out was then done to verify the patient's identity, as well as the procedure being performed. I began by localizing the area in and around this ulcer in the left heel. There was noted to be areas of both dry and wet gangrene, as well as a copious amounts of foul-smelling purulent drainage. Using a 15 blade scalpel, I debrided the obviously necrotic and infected tissue in the left heel. This was taken down to the calcaneus. The bone was noted to be exposed but looked to be viable. The tissue around the area looked to be viable, bleeding. Once the obviously infected, necrotic tissue was debrided, the wound measured 5 x 6 x 3 cm. Bleeding was controlled with pressure. The wound was then copiously washed out. No areas of tunneling were noted. Sterile dressing was then placed. The patient tolerated the procedure and was extubated postoperatively. She will be transferred back to the ICU in critical condition. Estimated Blood Loss 10 Urine Output 200 Drains No Packing Yes Pathology None sent Complications No immediate complications Condition Critical Disposition ICU [facility] Billing Surgery - Charge Forward: Surgery Billing
--- NOTE | 2024-08-09 10:51 | PC.NURSE ---
1030-Back from OR
[2024-08-09 11:46] LABS: Total Protein Urine Random 18 mg/dL; Urea Random Urine 627 MG/DL
[2024-08-09 11:48] LABS: Sodium Urine Random 30 meq/L
[2024-08-09 12:00] LABS: Creatinine Urine 51.2 mg/dL; Total Protein Urine Random 18 mg/dL; Ur Ttl Prot Creatinine Ratio 0.35 mg/mg (0-0.20)
--- NOTE | 2024-08-09 12:03 | PCNFU ---
Nutrition Follow-Up Complete: Increased Protein needs as related to wounds as evidenced by pressure ulcer reported. Goal: Adequate Intake of at least 75% of meals/supplements We will continue current goal. Pt current nutrition is 2 gm Na. Nutrition recommendation: Chad BID for wound healing. Last recorded weight is 80.8 kg, down from 82.9 kg on admit. Bowel Motility: No reported BM since admit. Labs Reviewed:Na 134, BUN 60, Cr 1.9,Glu 134,Alb 3.0 Meds Noted: Levophed, Cefepime. Skin: left heel pressure ulcer-unstageable. Additional Notes: Patient NPO today for I & D of heel. Diet orders advancing as tolerated to 2 gm Na diet. Oral Intake has been > 75% of meals. Protein Modular recommended for would healing BID. Agree with diet orders. RD will monitor weight, labs, skin, intake, meds every 5 days.
--- NOTE | 2024-08-09 12:31 | PM.PNNEP ---
Progress Note: A&P Assessment and Plan (1) FRANK (acute kidney injury): Code(s): N17.9 - Acute kidney failure, unspecified Status: Acute Assessment and Plan: improvement noted if not back to baseline as noted on presentation with a creatinine of 3.1mg/dl improvement noted with current interventions... multifactorial etiology: prerenal factors hemodynamic instability/shock infection/sepsis diuretic/entresto use prior to admission evaluation to date noted: normal renal ultrasound urine eosinophils negative urine electrolyte prerenal (but this could just be a manifestation of her cardiomyopathy) CPK okay follow trend of repeat labs and UOP (2) Chronic kidney disease, stage 4 (severe): Code(s): N18.4 - Chronic kidney disease, stage 4 (severe) Status: Chronic Assessment and Plan: baseline creatinine runs ~ 1.7 - 2.2mg/dl based on outpatient evaluation, thought to be secondary to previous HTN and chronic prerenal azotemia from her CHF/cardiomyopathy with ongoing need for diuretic therapy (3) Septic shock: Code(s): A41.9 - Sepsis, unspecified organism; R65.21 - Severe sepsis with septic shock Status: Acute Assessment and Plan: presumably due to wet gangrene ulcer/wound of left heel and UTI s/p conservative IVF resuscitationdue to know history of cardiomyopathy/CHF susbsequently started on vsopressortherapy due to persistent hypotensions follow culture data on antibiotics imaging of left leg/foot negative for SQ gas, osteomyeltiis, or abscess (4) Gangrene of left foot: Code(s): I96 - Gangrene, not elsewhere classified Status: Acute Assessment and Plan: presumed source of sepsis Surgery following s/p debrimenent and washout (on 08/09/24) local wound care (5) Acute UTI: Code(s): N39.0 - Urinary tract infection, site not specified Status: Acute Assessment and Plan: admission UA highly suggestive follow culture data on antibiotics (6) Anemia: Code(s): D64.9 - Anemia, unspecified Status: Acute Assessment and Plan: due in part to CKD and worsened by acute illness check iron studies (although would not give IV iron in the context of infection) consider IGNACIA while hopsitalized follow trend of H/H (7) Cardiomyopathy: Qualifiers: Cardiomyopathy type: ischemic Qualified Code(s): I25.5 - Ischemic cardiomyopathy Code(s): I42.9 - Cardiomyopathy, unspecified Status: Acute Assessment and Plan: known ischemic cardiomyopathy last Echo noted holding entresto and diuretics for now follow volume status closely (8) Bilateral lower extremity edema: Code(s): R60.0 - Localized edema Status: Acute Assessment and Plan: due to known history of CHF along with cKD supportive therapy Will continue to follow. Subjective Date/time seen: 08/09/24 12:31 Interval history: Follow-up for acute kidney injury/acute renal failure on chronic kidney disease. Status post incision/debridement/washout for left heel ulcer in OR earlier today -- tolerated the procedure without any issues or problems; was transiently off vasopressor therapy yesterday evening but needed to be restarted earlier this morning due to worsening hypotension/MAP; renal function/creatinine has improved with good urine output in the last 24 hours; no apparent distress voiced at the time of my visit. Exam Narrative: General: elderly but WD/WN female in NAD Heart: normal S1 and S2; no rub Lungs: clear anteriorly; few wheezes noted Abdomen: soft, nontender, nondistended, positive bowel sounds Extremities: no cyanosis or clubbing; 1+ edema Skin: left foot dressings in place Objective Data Vital Signs Vital Signs: Vital Signs Temp Pulse Resp BP Pulse Ox O2 Del Method O2 Flow Rate 08/09/24 12:30 73 80/53 L 08/09/24 12:15 74 8
--- NOTE | 2024-08-09 12:31 | P.PNNP_ITS ---
Progress Note: A&P Assessment and Plan (1) FRANK (acute kidney injury): Code(s): N17.9 - Acute kidney failure, unspecified Status: Acute Assessment and Plan: * improvement noted if not back to baseline * as noted on presentation with a creatinine of 3.1mg/dl * improvement noted with current interventions... * multifactorial etiology: * prerenal factors * hemodynamic instability/shock * infection/sepsis * diuretic/entresto use prior to admission * evaluation to date noted: * normal renal ultrasound * urine eosinophils negative * urine electrolyte prerenal (but this could just be a manifestation of her cardiomyopathy) * CPK okay * follow trend of repeat labs and UOP (2) Chronic kidney disease, stage 4 (severe): Code(s): N18.4 - Chronic kidney disease, stage 4 (severe) Status: Chronic Assessment and Plan: * baseline creatinine runs ~ 1.7 - 2.2mg/dl * based on outpatient evaluation, thought to be secondary to previous HTN and chronic prerenal azotemia from her CHF/cardiomyopathy with ongoing need for diuretic therapy (3) Septic shock: Code(s): A41.9 - Sepsis, unspecified organism; R65.21 - Severe sepsis with septic shock Status: Acute Assessment and Plan: * presumably due to wet gangrene ulcer/wound of left heel and UTI * s/p conservative IVF resuscitationdue to know history of cardiomyopathy/CHF * susbsequently started on vsopressortherapy due to persistent hypotensions * follow culture data * on antibiotics * imaging of left leg/foot negative for SQ gas, osteomyeltiis, or abscess (4) Gangrene of left foot: Code(s): I96 - Gangrene, not elsewhere classified Status: Acute Assessment and Plan: * presumed source of sepsis * Surgery following * s/p debrimenent and washout (on 08/09/24) * local wound care (5) Acute UTI: Code(s): N39.0 - Urinary tract infection, site not specified Status: Acute Assessment and Plan: * admission UA highly suggestive * follow culture data * on antibiotics (6) Anemia: Code(s): D64.9 - Anemia, unspecified Status: Acute Assessment and Plan: * due in part to CKD and worsened by acute illness * check iron studies (although would not give IV iron in the context of infection) * consider IGNACIA while hopsitalized * follow trend of H/H (7) Cardiomyopathy: Qualifiers: Cardiomyopathy type: ischemic Qualified Code(s): I25.5 - Ischemic cardiomyopathy Code(s): I42.9 - Cardiomyopathy, unspecified Status: Acute Assessment and Plan: * known ischemic cardiomyopathy * last Echo noted * holding entresto and diuretics for now * follow volume status closely (8) Bilateral lower extremity edema: Code(s): R60.0 - Localized edema Status: Acute Assessment and Plan: * due to known history of CHF along with cKD * supportive therapy Will continue to follow. Subjective Date/time seen: 08/09/24 12:31 Interval history: Follow-up for acute kidney injury/acute renal failure on chronic kidney disease. Status post incision/debridement/washout for left heel ulcer in OR earlier today -- tolerated the procedure without any issues or problems; was transiently off vasopressor therapy yesterday evening but needed to be restarted earlier this morning due to worsening hypotension/MAP; renal function/creatinine has improved with good urine output in the last 24 hours; no apparent distress voiced at the
--- NOTE | 2024-08-09 16:20 | PM.IMPN ---
Progress Note: A&P Assessment and Plan (1) Septic shock: Code(s): A41.9 - Sepsis, unspecified organism; R65.21 - Severe sepsis with septic shock Status: Acute Assessment and Plan: Patient presented to the wound clinic for heel drainage and sent to the ED. In the ED, BP was normal initially but dropped to 63/67. She was started on appropriate abx after cultures obtained. Central line was placed and Levophed started for septic shock secondary to wet gangrene ulcer of the left foot Patient received conservative IV fluid bolus due to history of congestive heart failure and volume overload Imaging did not reveal evidence of osteomyelitis. Continue Levophed titration to maintain mean arterial pressure BCx NGTD. UCx negative Continue empiric cefepime and vancomycin. Debridement performed today for source control Appreciate organic preparation analyst input (2) Acute on chronic kidney failure: Qualifiers: Acute renal failure type: unspecified Code(s): N17.9 - Acute kidney failure, unspecified; N18.9 - Chronic kidney disease, unspecified Status: Acute Assessment and Plan: Patient has CKD follows with nephrology. Her Cr mostly in the low 2 range. Cr was elevated to 3.1. Likely secondary to shock. Renal US showing normal sized kidneys. Creatinine improved with IV fluids and vasopressors and back down to 1.9 which is probably at her baseline Monitor urine output, electrolytes and creatinine (3) Gangrene of left foot: Code(s): I96 - Gangrene, not elsewhere classified Status: Acute Assessment and Plan: As above. Surgery consulted for debridement which occured today. Venous doppler negative for DVT BRISA showing moderately decreased ABIs with the Right and Left both at 0.6 consistent with arterial occlusive disease. Continue current abx and dressing changes. (4) Hypothyroidism: Onset Date: 06/2021 Code(s): E03.9 - Hypothyroidism, unspecified Status: Suspected Assessment and Plan: TSH 5.2 with FT4 elevated at 2.46. Either central hyperthyroidism, noncompliance with medications or more likely related to sepsis. Hold levothyroxine. (5) Paroxysmal atrial fibrillation: Code(s): I48.0 - Paroxysmal atrial fibrillation Status: Acute Assessment and Plan: Tele showing paced rhythm. Not on anticoagulation but takes a full Aspirin and amiodarone Follow (6) Cardiomyopathy: Qualifiers: Cardiomyopathy type: ischemic Qualified Code(s): I25.5 - Ischemic cardiomyopathy Code(s): I42.9 - Cardiomyopathy, unspecified Status: Acute Assessment and Plan: Patient with known ischemic cardiomyopathy. Echo 03/20/24 showing normal LV chamber dimension with LV systolic function mildly reduced (EF 45-50%), an abnormal LV septal wall motion related to a post-operative state and trace mitral regurgitation. Hx of MV replacement and valve was well seated. Holding Entresto, Bumex and Metolazone due to septic shock Resume home meds when able (7) Chronic obstructive pulmonary disease: Code(s): J44.9 - Chronic obstructive pulmonary disease, unspecified Status: Chronic Assessment and Plan: Scattered wheezes. P.r.n. bronchodilators (8) Bilateral lower extremity edema: Code(s): R60.0 - Localized edema Status: Acute Assessment and Plan: Secondary to congestive heart failure and CKD Lower extremity Dopplers negative for DVT Diuretics when able (9) Acute UTI: Code(s): N39.0 - Urinary tract infection, site not specified Status: Acute Assessment and Plan: UA was concerning for UTI. UCx collected. Abx started. UCx negative. UTI ruled out Plan DVT prophylaxis -Lovenox Code Status -DNR and DNI Subjective Date/time seen: 08/09/24 16:20 Interval history: 74yo female with sCHF, hypothyroidism, CKD and chronic left heel ulcers here for worsening heel
[2024-08-09 18:13] LABS: Hematocrit 25.2 % (37.0-47.0)
[2024-08-09 18:33] LABS: Vancomycin Random 13.6 ug/mL (10-20)
[2024-08-09 18:34] LABS: Iron 18 ug/dL (37-170)
[2024-08-09 18:43] LABS: Percent Iron Saturation 6 % (20-50)
[2024-08-09 19:33] LABS: Folic Acid 4.3 ng/mL (2.76->20)
[2024-08-09] MEDS: VANCOMYCIN 1,000 MG/NS 250 ML 1,000 MG/250 ML BAG 250 MG IVPB (19:56)
[2024-08-10] VITALS (29 sets, daily range): BP systolic 80–168; BP diastolic 37–121; PULSE 63–85; RESP 14–20; TEMP 36.3–38; O2SAT 91–100
--- NOTE | 2024-08-10 | ECHO_ITS ---
Patient Info Name: Monica Rangel Age: 74 years : 1950 Gender: Female Ht: 62 in Wt: 185 lbs BSA: 1.95 m2 HR: 75 bpm BP: 97 / 41 mmHg Heart Rhythm: Sinus Rhythm Technical Quality: Good Exam Date: 08/10/2024 11:11 AM Exam Location: Echo Lab Patient Status: Inpatient Admit Date: 08/08/2024 Staff Ordering Physician: Leno Mclain MD Cable Placer: Aaron Webb RDCS Attending Provider: Daryl Dudley MD Exam Type: CA echo doppler color flow Study Info Indications - LV and RV function Complete two-dimensional, color flow and Doppler transthoracic echocardiogram is performed. Summary 1. Complete two-dimensional, color flow and Doppler transthoracic echocardiogram is performed. 2. Left ventricular systolic function is normal, estimated at 50-55%. Hypokinesis basal inferior and inferoseptum. 3. Right ventricular chamber dimension is mildly enlarged. 4. Right ventricular systolic function is mildly reduced. 5. Linear artifact in right ventricle suggestive of catheter(s), pacemaker lead(s), or ICD lead(s). 6. Left atrial chamber dimension is mildly enlarged. 7. Right atrial chamber dimension is mildly enlarged. 8. There is mild aortic valve sclerosis. 9. There is mild aortic valve stenosis with a peak velocity of 222 cm/s, mean gradient of 9 mmHg, and aortic valve area of 1.6 cm2. 10. There is no stenosis of the bioprosthetic mitral valve.Mild perivalvular mitral regurgitation. Mean gradient across mitral valve 7 mmHg. 11. There is trace tricuspid valve regurgitation. 12. Mild pulmonary hypertension, estimated pulmonary arterial systolic pressure is 48 mmHg. 13. There is small pericardial effusion. Left Ventricle Left ventricular chamber dimension is normal. Left ventricular systolic function is normal, estimated at 50-55%. Hypokinesis basal inferior and inferoseptum. There is no increased left ventricular wall thickness. Left ventricular septal wall motion is normal. The left ventricular diastolic function is abnormal. Right Ventricle Right ventricular chamber dimension is mildly enlarged. Right ventricular systolic function is mildly reduced. Linear artifact in right ventricle suggestive of catheter(s), pacemaker lead(s), or ICD lead(s). Left Atria Left atrial chamber dimension is mildly enlarged. Right Atria Right atrial chamber dimension is mildly enlarged. Atrial Septum Intact interatrial septum visualized by color flow imaging. Aortic Valve The aortic valve is trileaflet. There is mild aortic valve sclerosis. There is mild aortic valve stenosis with a peak velocity of 222 cm/s, mean gradient of 9 mmHg, and aortic valve area of 1.6 cm2. There is no aortic valve regurgitation. Pulmonic Valve The pulmonic valve is normal. There is no pulmonic valve stenosis. There is no pulmonic regurgitation. Mitral Valve There is no stenosis of the bioprosthetic mitral valve.Mild perivalvular mitral regurgitation. Mean gradient across mitral valve 7 mmHg. There is mild perivalvular regurgitation of the bioprosthetic mitral valve. Tricuspid Valve The tricuspid valve leaflets are normal. There is no significant tricuspid valve stenosis. There is trace tricuspid valve regurgitation. Mild pulmonary hypertension, estimated pulmonary arterial systolic pressure is 48 mmHg. Pericardium/Pleural There is small pericardial effusion. Inferior Vena Cava Dilated inferior vena cava with <50% collapse upon inspiration consistent with elevated right atrial pressure, 15 mmHg. Aorta The aortic root size at the sinus of Valsalva is normal. The prox ascend
[2024-08-10] MEDS: CENTRAL LINE FLUSH 10 ML IV PUSH ×3 (04:50→21:28)
[2024-08-10 04:59] LABS: Hemoglobin 7.7 g/dL (12.0-15.0); Mean Corpuscular HGB Conc 30.8 g/dl (32-36); Mean Corpuscular Hemoglobin 26.3 pg (26-34); Mean Corpuscular Volume 85.3 fl (80-100); Mean Platelet Volume 9.2 fl (7.4-10.4); Platelet Count Result 281 k/mm3 (150-375); Red Blood Count 2.93 M/mm3 (4.2-5.4); Red Cell Distribution Width 16.3 % (11.5-14.5); White Blood Count 12.2 K/mm3 (4.5-10.0)
[2024-08-10 05:12] LABS: Alanine Aminotransferase 13 U/L (6-35); Alkaline Phosphatase 80 U/L (38-126); Anion Gap 2 mmol/L (4-12); Aspartate Amino Transferase 22 U/L (14-36); Bilirubin,Total 0.4 mg/dL (0.2-1.3); Blood Urea Nitrogen 55 mg/dL (7-17); Calcium 9.6 mg/dL (8.4-10.2); Carbon Dioxide 33 mmol/L (22-30); Chloride 106 mmol/L (98-107); Estimated CRCL calculation 26 ml/min; Estimated Glomerular Filt Rate 29; Glucose 116 mg/dL (65-110); Magnesium 2.1 mg/dL (1.6-2.3); Phosphorus 4.1 mg/dL (2.5-4.5); Potassium 4.9 mmol/L (3.4-5.0); Sodium 141 mmol/L (137-145)
[2024-08-10] MEDS: allopurinoL 50 MG TABLET PO (06:02)
[2024-08-10] MEDS: IPRATROPIUM 0.5 MG/ALBUTEROL SULFATE 2.5 MG AMPUL.NEB 3 ML INHALATION (08:35)
--- NOTE | 2024-08-10 08:45 | WPDINTPN ---
Progress Note: A&P Assessment and Plan (1) Septic shock: Code(s): A41.9 - Sepsis, unspecified organism; R65.21 - Severe sepsis with septic shock Status: Acute Assessment and Plan: Septic shock secondary to wet gangrene ulcer of the left foot and UTI Patient received conservative IV fluid bolus due to history of congestive heart failure and volume overload Continue Levophed titration to maintain mean arterial pressure Blood and urine cultures have been sent and are negative till now Continue Empiric cefepime and vancomycin 4 extremity BRISA - Moderately decreased ABIs, consistent with arterial occlusive disease. Procalcitonin level was low at 0.1 CT scan negative for any evidence of osteomyelitis or subcutaneous gas 08/09 underwent debridement and washout of left heel ulcer Continue midodrine Add 25% albumin (2) Acute on chronic kidney failure: Qualifiers: Acute renal failure type: unspecified Code(s): N17.9 - Acute kidney failure, unspecified; N18.9 - Chronic kidney disease, unspecified Status: Acute Assessment and Plan: Patient has chronic kidney disease and sees Nephrology as outpatient. Presented with creatinine that was elevated to 3.1. Likely secondary to shock. Creatinine improved with IV fluids and vasopressors Monitor urine output electrolytes and creatinine Nephrology consulted Renal ultrasound was unremarkable (3) Gangrene of left foot: Code(s): I96 - Gangrene, not elsewhere classified Status: Acute Assessment and Plan: See above (4) Acute UTI: Code(s): N39.0 - Urinary tract infection, site not specified Status: Acute Assessment and Plan: See above (5) Hypothyroidism: Onset Date: 06/2021 Code(s): E03.9 - Hypothyroidism, unspecified Status: Suspected Assessment and Plan: Continue levothyroxine TSH and T4 levels reviewed (6) Paroxysmal atrial fibrillation: Code(s): I48.0 - Paroxysmal atrial fibrillation Status: Acute Assessment and Plan: Currently in paced rhythm Aspirin and amiodarone Patient not on anticoagulation as an outpatient (7) Cardiomyopathy: Qualifiers: Cardiomyopathy type: ischemic Qualified Code(s): I25.5 - Ischemic cardiomyopathy Code(s): I42.9 - Cardiomyopathy, unspecified Status: Acute Assessment and Plan: Ischemic cardiomyopathy Echo done in 02/2024 reviewed Hold Entresto Patient will need eventually diuretics but at this time will hold due to sepsis (8) Chronic obstructive pulmonary disease: Code(s): J44.9 - Chronic obstructive pulmonary disease, unspecified Status: Chronic Assessment and Plan: P.r.n. bronchodilators (9) Bilateral lower extremity edema: Code(s): R60.0 - Localized edema Status: Acute Assessment and Plan: Secondary to congestive heart failure and CKD Leg elevation Lower extremity Dopplers negative for DVT (10) Ulcer of left heel: Code(s): L97.429 - Non-pressure chronic ulcer of left heel and midfoot with unspecified severity Status: Acute Assessment and Plan: See above Plan DVT prophylaxis -Lovenox Nutrition -npo today further surgery Code Status -patient wishes to be DNR and DNI which have confirmed with the patient Incentive spirometry Up in chair Total Critical Care Time - 30 minutes Due to a high probability of clinically significant, life threatening deterioration, the patient required my highest level of preparedness to intervene emergently and I personally spent this critical care time directly and personally managing the patient. This critical care time included obtaining a history; examining the patient; pulse oximetry; ordering and review of studies; arranging urgent treatment with development of a management plan; evaluation of patient's response to treatment; frequent reassessment; and discussions with other providers. It was exclusive o
[2024-08-10] MEDS: GABAPENTIN 100 MG CAPSULE 200 MG PO ×2 (08:53→16:43)
[2024-08-10] MEDS: AMIODARONE HCL 200 MG TABLET PO (08:53)
[2024-08-10] MEDS: MIDODRINE HCL 10 MG TABLET PO ×3 (08:53→16:43)
[2024-08-10] MEDS: ALBUMIN HUMAN 25% 25 GM/100 ML 100 ML IVPB ×3 (08:53→21:24)
[2024-08-10] MEDS: ASPIRIN 325 MG TABLET PO (08:53)
[2024-08-10] MEDS: ENOXAPARIN 30 MG/0.3 ML SYRINGE SUB-Q (08:54)
[2024-08-10] MEDS: CEFEPIME 1 GM/NS 50 ML 1 GM/50 ML BAG IVPB ×2 (08:54→21:25)
[2024-08-10] MEDS: LEVOTHYROXINE SODIUM 75 MCG TABLET PO (08:56)
[2024-08-10] MEDS: SOD HYPOCHLORITE 1/4 STRENGTH 473 ML 1 APPLIC TOPICAL (08:57)
[2024-08-10] MEDS: COLLAGENASE OINT 30 GM TUBE 1 APPLIC TOPICAL (08:58)
[2024-08-10] MEDS: NOREPINEPHRINE 8 MG/D5W 250 ML 8 MG/250 ML BAG 7.5 MG IV CONT (12:00)
--- NOTE | 2024-08-10 12:43 | PM.PNGS ---
Progress Note: A&P Assessment and Plan (1) Ulcer of left heel: Code(s): L97.429 - Non-pressure chronic ulcer of left heel and midfoot with unspecified severity Status: Acute Assessment and Plan: cont local wound care, wean off pressors as nahum, cont IV abx Subjective Subjective Date/Time Seen: 08/10/24 12:43 Interval history: no acute issues, still on low dose levophed Review of Systems Review of Systems: All systems reviewed & are unremarkable except as noted in HPI and below Exam Const: General: cooperative, comfortable, no acute distress and ill appearing Resp: Auscultation: diminished lung sounds Cardio: Rate: regular rate Rhythm: regular rhythm GI: Inspection: normal to inspection Extrem: Other: L heel - dressing C/D/I Objective Data Vital Signs Vital Signs: Vital Signs - 24 hr 08/09/24 12:45 08/09/24 13:00 08/09/24 13:15 Temperature Pulse Rate 75 74 75 Respiratory Rate Blood Pressure 82/43 L 93/40 L 89/48 L Pulse Oximetry Oxygen Delivery Oxygen Flow Rate 08/09/24 13:30 08/09/24 13:45 08/09/24 14:00 Temperature Pulse Rate 76 76 76 Respiratory Rate Blood Pressure 100/46 L 98/45 L Pulse Oximetry Oxygen Delivery Oxygen Flow Rate 08/09/24 14:00 08/09/24 14:00 08/09/24 14:45 Temperature 37.2 C Pulse Rate 76 76 76 Respiratory Rate 18 Blood Pressure 99/48 L 99/48 L 96/42 L Pulse Oximetry 99 Oxygen Delivery Oxygen Flow Rate 08/09/24 15:00 08/09/24 16:00 08/09/24 16:00 Temperature Pulse Rate 78 81 81 Respiratory Rate 16 Blood Pressure 101/51 L Pulse Oximetry 96 Oxygen Delivery Nasal Cannula Oxygen Flow Rate 2 08/09/24 16:00 08/09/24 16:00 08/09/24 18:00 Temperature 37.4 C Pulse Rate 81 81 80 Respiratory Rate 16 Blood Pressure 101/66 101/66 Pulse Oximetry 96 Oxygen Delivery Oxygen Flow Rate 08/09/24 18:00 08/09/24 18:00 08/09/24 19:59 Temperature 37.5 C Pulse Rate 80 80 82 Respiratory Rate 15 Blood Pressure 113/50 L 117/49 L 132/61 Pulse Oximetry 98 Oxygen Delivery Oxygen Flow Rate 08/09/24 20:00 08/09/24 20:08 08/09/24 21:36 Temperature 36.9 C Pulse Rate 82 79 Respiratory Rate 18 Blood Pressure 121/61 106/88 Pulse Oximetry 98 97 Oxygen Delivery Nasal Cannula Oxygen Flow Rate 2 08/09/24 20:00 08/09/24 20:00 08/09/24 22:00 Temperature Pulse Rate 82 75 Respiratory Rate Blood Pressure Pulse Oximetry 97 Oxygen Delivery Nasal Cannula Oxygen Flow Rate 2 08/09/24 22:00 08/09/24 22:05 08/10/24 00:00 Temperature 36.4 C Pulse Rate 75 75 72 Respiratory Rate 17 14 Blood Pressure 112/51 L 112/51 L 114/51 L Pulse Oximetry 96 95 Oxygen Delivery Oxygen Flow Rate 08/10/24 00:00 08/10/24 01:02 08/10/24 00:00 Temperature Pulse Rate 72 80 71 Respiratory Rate Blood Pressure 114/51 L 117/65 Pulse Oximetry Oxygen Delivery Oxygen Flow Rate 08/10/24 00:00 08/10/24 01:21 08/10/24 01:33 Temperature Pulse Rate 80 77 Respiratory Rate Blood Pressure 131/86 129/84 Pulse Oximetry 95 Oxygen Delivery Nasal Cannula Oxygen Flow Rate 2 08/10/24 01:47 08/10/24 02:00 08/10/24 02:00 Temperature Pulse Rate 72 69 69 Respiratory Rate 17 Blood Pressure 143/121 H 99/46 L Pulse Oximetry 96 Oxygen Delivery Oxygen Flow Rate 08/10/24 02:06 08/10/24 03:48 08/10/24 04:00 Temperature Pulse Rate 68 64 70 Respiratory Rate Blood Pressure 99/46 L 80/49 L 107/47 L Pulse Oximetry Oxygen Delivery Oxygen Flow Rate 08/10/24 04:00 08/10/24 04:00 08/10/24 04:00 Temperature 36.4 C Pulse Rate 63 63 Respiratory Rate 14 Blood Pressure 107/47 L Pulse Oximetry 96 96 Oxygen Delivery Nasal Cannula Oxygen Flow Rate 2 08/10/24 06:00 08/10/24 06:00 08/10/24 06:00 Temperature Pulse Rate 67 67 67 Respiratory Rate 16 Blood Pressure 93/3
--- NOTE | 2024-08-10 15:20 | P.PNNP_ITS ---
Progress Note: A&P Assessment and Plan (1) FRANK (acute kidney injury): Code(s): N17.9 - Acute kidney failure, unspecified Status: Acute Assessment and Plan: * improvement noted with creatinine at baseline now. * as noted on presentation with a creatinine of 3.1mg/dl * improvement noted with a creatinine of 1.7 * multifactorial etiology: * prerenal factors * hemodynamic instability/shock * infection/sepsis * diuretic/entresto use prior to admission * evaluation to date noted: * normal renal ultrasound * urine eosinophils negative * urine electrolyte prerenal (but this could just be a manifestation of her cardiomyopathy) * CPK okay * looks much better * (2) Chronic kidney disease, stage 4 (severe): Code(s): N18.4 - Chronic kidney disease, stage 4 (severe) Status: Chronic Assessment and Plan: * baseline creatinine runs ~ 1.7 - 2.2mg/dl * based on outpatient evaluation, thought to be secondary to previous HTN and chronic prerenal azotemia from her CHF/cardiomyopathy with ongoing need for diuretic therapy (3) Septic shock: Code(s): A41.9 - Sepsis, unspecified organism; R65.21 - Severe sepsis with septic shock Status: Acute Assessment and Plan: * presumably due to wet gangrene ulcer/wound of left heel and UTI * s/p conservative IVF resuscitationdue to know history of cardiomyopathy/CHF * susbsequently started on vsopressortherapy due to persistent hypotensions * was on pressors and now on norep at 6. * blood and urine cultures are negative * wbc up slt at 12. CO2 okay. (4) Gangrene of left foot: Code(s): I96 - Gangrene, not elsewhere classified Status: Acute Assessment and Plan: * presumed source of sepsis * Surgery following * s/p debridenent and washout (on 08/09/24) * local wound care (5) Acute UTI: Code(s): N39.0 - Urinary tract infection, site not specified Status: Acute Assessment and Plan: * admission UA highly suggestive but culture negative. * on antibiotics (6) Anemia: Code(s): D64.9 - Anemia, unspecified Status: Acute Assessment and Plan: * due in part to CKD and worsened by acute illness * check iron studies (although would not give IV iron in the context of infection) * hb dropped over the last few days. * will start epo tomorrow (7) Cardiomyopathy: Qualifiers: Cardiomyopathy type: ischemic Qualified Code(s): I25.5 - Ischemic cardiomyopathy Code(s): I42.9 - Cardiomyopathy, unspecified Status: Acute Assessment and Plan: * known ischemic cardiomyopathy * last Echo noted * holding entresto and diuretics for now * follow volume status closely (8) Bilateral lower extremity edema: Code(s): R60.0 - Localized edema Status: Acute Assessment and Plan: * due to known history of CHF along with cKD * supportive therapy Will continue to follow. Subjective Date/time seen: 08/10/24 15:20 Interval history: Patient feels okay. No shortness of breath or cough Still on some oxygen. Sitting up in a chair visiting with a friend. Exam 2 Narrative: General: elderly but WD/WN female in NAD Heart: normal S1 and S2; no rub no gallop Lungs: clear anteriorly; few wheezes noted Abdomen: soft, nontender, nondistended, positive bowel sounds Extremities: no cyanosis or clubbing; 1+ edema Skin: left foot dressings in
--- NOTE | 2024-08-10 15:20 | PM.PNNEP ---
Progress Note: A&P Assessment and Plan (1) FRANK (acute kidney injury): Code(s): N17.9 - Acute kidney failure, unspecified Status: Acute Assessment and Plan: improvement noted with creatinine at baseline now. as noted on presentation with a creatinine of 3.1mg/dl improvement noted with a creatinine of 1.7 multifactorial etiology: prerenal factors hemodynamic instability/shock infection/sepsis diuretic/entresto use prior to admission evaluation to date noted: normal renal ultrasound urine eosinophils negative urine electrolyte prerenal (but this could just be a manifestation of her cardiomyopathy) CPK okay looks much better (2) Chronic kidney disease, stage 4 (severe): Code(s): N18.4 - Chronic kidney disease, stage 4 (severe) Status: Chronic Assessment and Plan: baseline creatinine runs ~ 1.7 - 2.2mg/dl based on outpatient evaluation, thought to be secondary to previous HTN and chronic prerenal azotemia from her CHF/cardiomyopathy with ongoing need for diuretic therapy (3) Septic shock: Code(s): A41.9 - Sepsis, unspecified organism; R65.21 - Severe sepsis with septic shock Status: Acute Assessment and Plan: presumably due to wet gangrene ulcer/wound of left heel and UTI s/p conservative IVF resuscitationdue to know history of cardiomyopathy/CHF susbsequently started on vsopressortherapy due to persistent hypotensions was on pressors and now on norep at 6. blood and urine cultures are negative wbc up slt at 12. CO2 okay. (4) Gangrene of left foot: Code(s): I96 - Gangrene, not elsewhere classified Status: Acute Assessment and Plan: presumed source of sepsis Surgery following s/p debridenent and washout (on 08/09/24) local wound care (5) Acute UTI: Code(s): N39.0 - Urinary tract infection, site not specified Status: Acute Assessment and Plan: admission UA highly suggestive but culture negative. on antibiotics (6) Anemia: Code(s): D64.9 - Anemia, unspecified Status: Acute Assessment and Plan: due in part to CKD and worsened by acute illness check iron studies (although would not give IV iron in the context of infection) hb dropped over the last few days. will start epo tomorrow (7) Cardiomyopathy: Qualifiers: Cardiomyopathy type: ischemic Qualified Code(s): I25.5 - Ischemic cardiomyopathy Code(s): I42.9 - Cardiomyopathy, unspecified Status: Acute Assessment and Plan: known ischemic cardiomyopathy last Echo noted holding entresto and diuretics for now follow volume status closely (8) Bilateral lower extremity edema: Code(s): R60.0 - Localized edema Status: Acute Assessment and Plan: due to known history of CHF along with cKD supportive therapy Will continue to follow. Subjective Date/time seen: 08/10/24 15:20 Interval history: Patient feels okay. No shortness of breath or cough Still on some oxygen. Sitting up in a chair visiting with a friend. Exam Narrative: General: elderly but WD/WN female in NAD Heart: normal S1 and S2; no rub no gallop Lungs: clear anteriorly; few wheezes noted Abdomen: soft, nontender, nondistended, positive bowel sounds Extremities: no cyanosis or clubbing; 1+ edema Skin: left foot dressings in place. no acute rasy Objective Data Vital Signs Vital Signs: Vital Signs - 24 hr 08/09/24 16:00 08/09/24 16:00 08/09/24 16:00 Temperature 99.4 F Pulse Rate 81 81 81 Respiratory Rate 16 16 Blood Pressure 101/66 Pulse Oximetry 96 96 Oxygen Delivery Nasal Cannula Oxygen Flow Rate 2 08/09/24 16:00 08/09/24 18:00 08/09/24 18:00 Temperature 99.5 F Pulse Rate 81 80 80 Respiratory Rate 15 Blood Pressure 101/66 113/50 L Pulse Oximetry 98 Oxygen Delivery Oxygen Flow Rate 08/09/24 18:00 08/09/24 1
--- NOTE | 2024-08-10 17:27 | WPDPN ---
Progress Note: A&P Assessment and Plan (1) Septic shock: Code(s): A41.9 - Sepsis, unspecified organism; R65.21 - Severe sepsis with septic shock Status: Acute Assessment and Plan: Patient presented to the wound clinic for heel drainage and sent to the ED. In the ED, BP was normal initially but dropped to 63/67. She was started on appropriate abx after cultures obtained. Central line was placed and Levophed started for septic shock secondary to wet gangrene ulcer of the left foot Patient received conservative IV fluid bolus due to history of congestive heart failure and volume overload Imaging did not reveal evidence of osteomyelitis. Continue Levophed titration to maintain mean arterial pressure BCx NGTD. UCx negative Continue empiric cefepime and vancomycin. Debridement performed today for source control Appreciate used car make ready mechanic input patient was sent to ER from wound clinic with wet gangrene ulcer of the left foot its no OM. she developed septic shock and patient was started on fluids and Levophed however her bp is dependent on the pressure as I spoke with used car make ready mechanic and nursing staff, unable to wean off the Levophed, for wound patient is treated with Cefepime and vancomycin, urine and blood culture no growth so far, patient remains clinically stable, and seen by used car make ready mechanic, heel padder and general surgery. (2) Acute on chronic kidney failure: Qualifiers: Acute renal failure type: unspecified Code(s): N17.9 - Acute kidney failure, unspecified; N18.9 - Chronic kidney disease, unspecified Status: Acute Assessment and Plan: Patient has CKD follows with nephrology. Her Cr mostly in the low 2 range. Cr was elevated to 3.1. Likely secondary to shock. Renal US showing normal sized kidneys. Creatinine improved with IV fluids and vasopressors and back down to 1.9 which is probably at her baseline Monitor urine output, electrolytes and creatinine (3) Gangrene of left foot: Code(s): I96 - Gangrene, not elsewhere classified Status: Acute Assessment and Plan: As above. Surgery consulted for debridement which occured today. Venous doppler negative for DVT BRISA showing moderately decreased ABIs with the Right and Left both at 0.6 consistent with arterial occlusive disease. Continue current abx and dressing changes. (4) Hypothyroidism: Onset Date: 06/2021 Code(s): E03.9 - Hypothyroidism, unspecified Status: Suspected Assessment and Plan: TSH 5.2 with FT4 elevated at 2.46. Either central hyperthyroidism, noncompliance with medications or more likely related to sepsis. Hold levothyroxine. (5) Paroxysmal atrial fibrillation: Code(s): I48.0 - Paroxysmal atrial fibrillation Status: Acute Assessment and Plan: Tele showing paced rhythm. Not on anticoagulation but takes a full Aspirin and amiodarone Follow (6) Cardiomyopathy: Qualifiers: Cardiomyopathy type: ischemic Qualified Code(s): I25.5 - Ischemic cardiomyopathy Code(s): I42.9 - Cardiomyopathy, unspecified Status: Acute Assessment and Plan: Patient with known ischemic cardiomyopathy. Echo 03/20/24 showing normal LV chamber dimension with LV systolic function mildly reduced (EF 45-50%), an abnormal LV septal wall motion related to a post-operative state and trace mitral regurgitation. Hx of MV replacement and valve was well seated. Holding Entresto, Bumex and Metolazone due to septic shock Resume home meds when able (7) Chronic obstructive pulmonary disease: Code(s): J44.9 - Chronic obstructive pulmonary disease, unspecified Status: Chronic Assessment and Plan: Scattered wheezes. P.r.n. bronchodilators (8) Bilateral lower extremity edema: Code(s): R60.0 - Localized edema Status: Acute Assessment and Plan: Secondary to congestive heart failure and CKD Lower extremity Dopplers negative fo
[2024-08-10 19:26] LABS: Vancomycin Trough 16.7 ug/mL (10.0-20.0)
[2024-08-11] VITALS (31 sets, daily range): BP systolic 90–121; BP diastolic 40–79; PULSE 55–84; RESP 15–22; TEMP 36.4–36.9; O2SAT 89–99
[2024-08-11] MEDS: VANCOMYCIN 1,000 MG/NS 250 ML 1,000 MG/250 ML BAG 250 MG IVPB (00:04)
[2024-08-11] MEDS: ALBUMIN HUMAN 25% 25 GM/100 ML 100 ML IVPB ×4 (01:42→19:40)
[2024-08-11] MEDS: SOD HYPOCHLORITE 1/4 STRENGTH 473 ML 1 APPLIC TOPICAL ×3 (03:45→20:52)
[2024-08-11] MEDS: CENTRAL LINE FLUSH 10 ML IV PUSH ×3 (05:43→20:52)
[2024-08-11] MEDS: LEVOTHYROXINE SODIUM 75 MCG TABLET PO (05:43)
[2024-08-11 06:09] LABS: Hematocrit 21.8 % (37.0-47.0); Mean Corpuscular HGB Conc 30.7 g/dl (32-36); Mean Corpuscular Hemoglobin 26.4 pg (26-34); Mean Corpuscular Volume 85.8 fl (80-100); Mean Platelet Volume 9.9 fl (7.4-10.4); Platelet Count Result 269 k/mm3 (150-375); Red Blood Count 2.54 M/mm3 (4.2-5.4); Red Cell Distribution Width 16.6 % (11.5-14.5); White Blood Count 11.1 K/mm3 (4.5-10.0)
[2024-08-11 06:25] LABS: Hemoglobin 6.7 g/dL (12.0-15.0)
[2024-08-11 06:38] LABS: Alanine Aminotransferase 13 U/L (6-35); Albumin Level 3.7 g/dL (3.5-5.1); Alkaline Phosphatase 104 U/L (38-126); Anion Gap 3 mmol/L (4-12); Aspartate Amino Transferase 22 U/L (14-36); Bilirubin,Total 0.7 mg/dL (0.2-1.3); Blood Urea Nitrogen 69 mg/dL (7-17); Calcium 9.4 mg/dL (8.4-10.2); Carbon Dioxide 34 mmol/L (22-30); Chloride 102 mmol/L (98-107); Estimated CRCL calculation 21 ml/min; Estimated Glomerular Filt Rate 22; Glucose 125 mg/dL (65-110); Magnesium 1.9 mg/dL (1.6-2.3); Phosphorus 3.2 mg/dL (2.5-4.5); Potassium 5.1 mmol/L (3.4-5.0); Sodium 139 mmol/L (137-145)
[2024-08-11] MEDS: IPRATROPIUM 0.5 MG/ALBUTEROL SULFATE 2.5 MG AMPUL.NEB 3 ML INHALATION (08:15)
[2024-08-11 08:34] LABS: Alveolar/Arterial O2 Gradient 119.7 mmHg; Base Excess ABG 0.6 mEq/l (+/-2.0); Fractional Inspired Oxygen 32 %; HCO3 ABG 25.7 mEq/l (22.0-26.0); Oxygen Content ABG 8.6 %vol (16.0-22.0); Oxygen Saturation ABG 88.9 % (95.0-100.0); PCO2 ABG 44.3 mmHg (35.0-45.0); PO2 ABG 56.6 mmHg (80.0-100.0); PO2 FiO2 Ratio Arterial Blood 1.77 %; pH ABG 7.382 (7.350-7.450)
[2024-08-11 08:36] LABS: Device NASAL CANNULA; Modified Allen's Test Pass; Oxyhemoglobin 86.6 % THb (90.0-100.0); Site Drawn RIGHT RADIAL
[2024-08-11] MEDS: LACTATED RINGERS 500 ML 999 ML IV CONT (08:39)
[2024-08-11] MEDS: AMIODARONE HCL 200 MG TABLET PO (08:49)
[2024-08-11] MEDS: MIDODRINE HCL 10 MG TABLET PO ×3 (08:49→17:02)
[2024-08-11] MEDS: ASPIRIN 325 MG TABLET PO (08:49)
[2024-08-11] MEDS: PANTOPRAZOLE SODIUM IV 40 MG VIAL IV PUSH ×2 (08:51→20:51)
[2024-08-11] MEDS: ENOXAPARIN 30 MG/0.3 ML SYRINGE SUB-Q (08:51)
[2024-08-11] MEDS: HYDROCORTISONE SODIUM SUCCINATE 100 MG/2 ML VIAL IV PUSH ×2 (08:52→17:02)
[2024-08-11] MEDS: COLLAGENASE OINT 30 GM TUBE 1 APPLIC TOPICAL (08:52)
--- NOTE | 2024-08-11 08:59 | P.PNNP_ITS ---
Progress Note: A&P Assessment and Plan (1) FRANK (acute kidney injury): Code(s): N17.9 - Acute kidney failure, unspecified Status: Acute Assessment and Plan: * The patient has acute kidney injury. * The creatinine started at 3.1 then fell to her baseline of 1.7 but today is back up to 2.2 * evaluation to date noted: * normal renal ultrasound * urine eosinophils negative * urine electrolyte prerenal (but this could just be a manifestation of her cardiomyopathy) * CPK okay * multifactorial etiology: * prerenal factors. Patient is still on pressors. She is also anemic. * infection/sepsis may be playing a role as she is still on pressors. * Vancomycin may be playing a role. * Allergic interstitial nephritis is always a possibility as well however she does not have a rash. Urine eosinophils were negative. Will check for blood eosinophils. * The patient will be getting blood transfusion and some fluids. * Discussed with Dr. Mclain. Will stop the vancomycin. (2) Chronic kidney disease, stage 4 (severe): Code(s): N18.4 - Chronic kidney disease, stage 4 (severe) Status: Chronic Assessment and Plan: * baseline creatinine runs ~ 1.7 - 2.2mg/dl * based on outpatient evaluation, thought to be secondary to previous HTN and chronic prerenal azotemia from her CHF/cardiomyopathy with ongoing need for diuretic therapy (3) Septic shock: Code(s): A41.9 - Sepsis, unspecified organism; R65.21 - Severe sepsis with septic shock Status: Acute Assessment and Plan: * presumably due to wet gangrene ulcer/wound of left heel and UTI * Still on pressors. * Getting antibiotics. (4) Gangrene of left foot: Code(s): I96 - Gangrene, not elsewhere classified Status: Acute Assessment and Plan: * presumed source of sepsis * Surgery following * s/p debridenent and washout (on 08/09/24) * local wound care (5) Acute UTI: Code(s): N39.0 - Urinary tract infection, site not specified Status: Acute Assessment and Plan: * admission UA highly suggestive but culture negative. * on cefepime and was receiving vancomycin (6) Anemia: Code(s): D64.9 - Anemia, unspecified Status: Acute Assessment and Plan: * due in part to CKD and worsened by acute illness * check iron studies (although would not give IV iron in the context of infection) * hb dropped over the last few days. * Epogen ordered (7) Cardiomyopathy: Qualifiers: Cardiomyopathy type: ischemic Qualified Code(s): I25.5 - Ischemic cardiomyopathy Code(s): I42.9 - Cardiomyopathy, unspecified Status: Acute Assessment and Plan: * known ischemic cardiomyopathy * last Echo noted * holding entresto and diuretics for now * follow volume status closely * No sign of volume overload right now (8) Bilateral lower extremity edema: Code(s): R60.0 - Localized edema Status: Acute Assessment and Plan: * due to known history of CHF along with cKD * Swelling is very mild Will continue to follow. Subjective Date/time seen: 08/11/24 08:59 Interval history: Patient is in semi-Noe's position in bed. She is getting a breathing treatment. She denies shortness of breath. No chest pain. Her cough is intermittent and better. Exam Narrative: General: elderly but WD/WN female in NAD Heart: normal S1 and S2; no rub no beavers
--- NOTE | 2024-08-11 08:59 | PM.PNNEP ---
Progress Note: A&P Assessment and Plan (1) FRANK (acute kidney injury): Code(s): N17.9 - Acute kidney failure, unspecified Status: Acute Assessment and Plan: The patient has acute kidney injury. The creatinine started at 3.1 then fell to her baseline of 1.7 but today is back up to 2.2 evaluation to date noted: normal renal ultrasound urine eosinophils negative urine electrolyte prerenal (but this could just be a manifestation of her cardiomyopathy) CPK okay multifactorial etiology: prerenal factors. Patient is still on pressors. She is also anemic. infection/sepsis may be playing a role as she is still on pressors. Vancomycin may be playing a role. Allergic interstitial nephritis is always a possibility as well however she does not have a rash. Urine eosinophils were negative. Will check for blood eosinophils. The patient will be getting blood transfusion and some fluids. Discussed with Dr. Mclain. Will stop the vancomycin. (2) Chronic kidney disease, stage 4 (severe): Code(s): N18.4 - Chronic kidney disease, stage 4 (severe) Status: Chronic Assessment and Plan: baseline creatinine runs ~ 1.7 - 2.2mg/dl based on outpatient evaluation, thought to be secondary to previous HTN and chronic prerenal azotemia from her CHF/cardiomyopathy with ongoing need for diuretic therapy (3) Septic shock: Code(s): A41.9 - Sepsis, unspecified organism; R65.21 - Severe sepsis with septic shock Status: Acute Assessment and Plan: presumably due to wet gangrene ulcer/wound of left heel and UTI Still on pressors. Getting antibiotics. (4) Gangrene of left foot: Code(s): I96 - Gangrene, not elsewhere classified Status: Acute Assessment and Plan: presumed source of sepsis Surgery following s/p debridenent and washout (on 08/09/24) local wound care (5) Acute UTI: Code(s): N39.0 - Urinary tract infection, site not specified Status: Acute Assessment and Plan: admission UA highly suggestive but culture negative. on cefepime and was receiving vancomycin (6) Anemia: Code(s): D64.9 - Anemia, unspecified Status: Acute Assessment and Plan: due in part to CKD and worsened by acute illness check iron studies (although would not give IV iron in the context of infection) hb dropped over the last few days. Epogen ordered (7) Cardiomyopathy: Qualifiers: Cardiomyopathy type: ischemic Qualified Code(s): I25.5 - Ischemic cardiomyopathy Code(s): I42.9 - Cardiomyopathy, unspecified Status: Acute Assessment and Plan: known ischemic cardiomyopathy last Echo noted holding entresto and diuretics for now follow volume status closely No sign of volume overload right now (8) Bilateral lower extremity edema: Code(s): R60.0 - Localized edema Status: Acute Assessment and Plan: due to known history of CHF along with cKD Swelling is very mild Will continue to follow. Subjective Date/time seen: 08/11/24 08:59 Interval history: Patient is in semi-Noe's position in bed. She is getting a breathing treatment. She denies shortness of breath. No chest pain. Her cough is intermittent and better. Exam Narrative: General: elderly but WD/WN female in NAD Heart: normal S1 and S2; no rub no gallop Lungs: Scattered intermittent mild wheezes Abdomen: soft, nontender, nondistended, positive bowel sounds Extremities: no cyanosis or clubbing; 1+ edema Skin: left foot dressings in place Objective Data Vital Signs Vital Signs: Vital Signs - 24 hr 08/10/24 10:00 08/10/24 10:00 08/10/24 09:24 Temperature 100.4 F H Pulse Rate 75 74 Respiratory Rate 14 Blood Pressure 103/65 Pulse Oximetry 99 95 Oxygen Delivery Nasal Cannula Oxygen Flow Rate 4 Fraction of Inspired Oxygen 08/10/24 10:33 08/10/24 10:00
--- NOTE | 2024-08-11 09:07 | WPDINTPN ---
Progress Note: A&P Assessment and Plan (1) Septic shock: Code(s): A41.9 - Sepsis, unspecified organism; R65.21 - Severe sepsis with septic shock Status: Acute Assessment and Plan: Septic shock secondary to wet gangrene ulcer of the left foot and UTI Patient received conservative IV fluid bolus due to history of congestive heart failure and volume overload Continue Levophed titration to maintain mean arterial pressure Blood and urine cultures have been sent and are negative till now Continue Empiric cefepime but will discontinue vancomycin in light of negative cultures and worsening renal function 4 extremity BRISA - Moderately decreased ABIs, consistent with arterial occlusive disease. Procalcitonin level was low at 0.1 CT scan negative for any evidence of osteomyelitis or subcutaneous gas 08/09 underwent debridement and washout of left heel ulcer Continue midodrine Add hydrocortisone Small amount of additional IV fluids (2) Acute on chronic kidney failure: Qualifiers: Acute renal failure type: unspecified Code(s): N17.9 - Acute kidney failure, unspecified; N18.9 - Chronic kidney disease, unspecified Status: Acute Assessment and Plan: Patient has chronic kidney disease and sees Nephrology as outpatient. Presented with creatinine that was elevated to 3.1. Likely secondary to shock. Creatinine initially improved with IV fluids and vasopressors and now increased to 2.[address] Fu. Patient is being PRBC and will give additional small amount of IV fluids. DC vancomycin Monitor urine output electrolytes and creatinine Nephrology consulted Renal ultrasound was unremarkable (3) Gangrene of left foot: Code(s): I96 - Gangrene, not elsewhere classified Status: Acute Assessment and Plan: See above (4) Acute UTI: Code(s): N39.0 - Urinary tract infection, site not specified Status: Acute Assessment and Plan: See above (5) Hypothyroidism: Onset Date: 06/2021 Code(s): E03.9 - Hypothyroidism, unspecified Status: Suspected Assessment and Plan: Continue levothyroxine TSH and T4 levels reviewed (6) Paroxysmal atrial fibrillation: Code(s): I48.0 - Paroxysmal atrial fibrillation Status: Acute Assessment and Plan: Currently in paced rhythm Aspirin and amiodarone Patient not on anticoagulation as an outpatient (7) Cardiomyopathy: Qualifiers: Cardiomyopathy type: ischemic Qualified Code(s): I25.5 - Ischemic cardiomyopathy Code(s): I42.9 - Cardiomyopathy, unspecified Status: Acute Assessment and Plan: Ischemic cardiomyopathy Echo done in 02/2024 reviewed Hold Entresto Patient will need eventually diuretics but at this time will hold due to sepsis (8) Chronic obstructive pulmonary disease: Code(s): J44.9 - Chronic obstructive pulmonary disease, unspecified Status: Chronic Assessment and Plan: Code dilators and steroid (9) Bilateral lower extremity edema: Code(s): R60.0 - Localized edema Status: Acute Assessment and Plan: Secondary to congestive heart failure and CKD Leg elevation Lower extremity Dopplers negative for DVT (10) Ulcer of left heel: Code(s): L97.429 - Non-pressure chronic ulcer of left heel and midfoot with unspecified severity Status: Acute Assessment and Plan: See above (11) Anemia: Code(s): D64.9 - Anemia, unspecified Status: Acute Assessment and Plan: Hemoglobin trended down to 6.7. No signs of active bleeding. Patient is on Epogen. Protonix IV ordered. Will transfuse 1 unit of PRBC and monitor. (12) Shortness of breath: Code(s): R06.02 - Shortness of breath Status: Acute Assessment and Plan: Secondary to COPD and possible CHF Check chest x-ray ABG Bronchodilator Start steroids Plan DVT prophylaxis -Lovenox Nutrition -diet ordered Co
--- NOTE | 2024-08-11 09:33 | PM.PNGS ---
Progress Note: A&P Assessment and Plan (1) Ulcer of left heel: Code(s): L97.429 - Non-pressure chronic ulcer of left heel and midfoot with unspecified severity Status: Acute Assessment and Plan: cont local wound care and abx, wean pressor as nahum, cont pressure off loading Subjective Subjective Date/Time Seen: 08/11/24 09:33 Interval history: no acute issues, cont to require low dose vasopressor, getting transfusion today Review of Systems Review of Systems: All systems reviewed & are unremarkable except as noted in HPI and below Exam Const: General: cooperative, comfortable, no acute distress and ill appearing Resp: Auscultation: diminished lung sounds Cardio: Rate: regular rate Rhythm: regular rhythm GI: Inspection: normal to inspection and non-distended Extrem: Other: L heel - dressing C/d/I Objective Data Vital Signs Vital Signs: Vital Signs - 24 hr 08/10/24 10:00 08/10/24 10:00 08/10/24 10:33 Temperature 38.0 C H Pulse Rate 75 74 78 Respiratory Rate 14 Blood Pressure 103/65 97/41 L Pulse Oximetry 99 Oxygen Delivery Oxygen Flow Rate Fraction of Inspired Oxygen 08/10/24 10:00 08/10/24 12:00 08/10/24 12:00 Temperature Pulse Rate 75 79 77 Respiratory Rate 20 Blood Pressure 103/65 Pulse Oximetry 95 Oxygen Delivery Nasal Cannula Oxygen Flow Rate 4 Fraction of Inspired Oxygen 08/10/24 12:00 08/10/24 12:00 08/10/24 11:38 Temperature 36.3 C L Pulse Rate 76 80 76 Respiratory Rate 18 19 Blood Pressure 108/44 L 108/57 L 114/50 L Pulse Oximetry 97 95 Oxygen Delivery Oxygen Flow Rate Fraction of Inspired Oxygen 08/10/24 14:00 08/10/24 14:00 08/10/24 15:54 Temperature 36.6 C Pulse Rate 75 74 74 Respiratory Rate 19 Blood Pressure 101/45 L Pulse Oximetry 95 Oxygen Delivery Oxygen Flow Rate Fraction of Inspired Oxygen 08/10/24 16:00 08/10/24 16:00 08/10/24 12:00 Temperature 36.7 C Pulse Rate 73 75 Respiratory Rate 19 Blood Pressure 96/71 L Pulse Oximetry 98 96 Oxygen Delivery Nasal Cannula Oxygen Flow Rate 4 Fraction of Inspired Oxygen 08/10/24 14:00 08/10/24 16:47 08/10/24 18:00 Temperature Pulse Rate 76 75 72 Respiratory Rate Blood Pressure 86/55 L 107/72 Pulse Oximetry Oxygen Delivery Oxygen Flow Rate Fraction of Inspired Oxygen 08/10/24 18:00 08/10/24 16:00 08/10/24 18:00 Temperature 37.7 C H Pulse Rate 85 74 74 Respiratory Rate 17 Blood Pressure 168/69 H 96/45 L 105/45 L Pulse Oximetry 100 Oxygen Delivery Oxygen Flow Rate Fraction of Inspired Oxygen 08/10/24 20:00 08/10/24 21:23 08/10/24 20:00 Temperature Pulse Rate 70 77 70 Respiratory Rate Blood Pressure 101/39 L 97/41 L Pulse Oximetry Oxygen Delivery Oxygen Flow Rate Fraction of Inspired Oxygen 08/10/24 20:00 08/10/24 22:00 08/11/24 00:00 Temperature Pulse Rate 77 78 Respiratory Rate Blood Pressure 103/45 L 102/42 L Pulse Oximetry 96 Oxygen Delivery Nasal Cannula Oxygen Flow Rate 2 Fraction of Inspired Oxygen 08/10/24 20:00 08/10/24 22:00 08/10/24 22:00 Temperature 36.7 C Pulse Rate 70 84 84 Respiratory Rate 14 19 Blood Pressure 101/39 L 103/45 L Pulse Oximetry 96 93 Oxygen Delivery Oxygen Flow Rate Fraction of Inspired Oxygen 08/11/24 00:00 08/11/24 00:00 08/11/24 00:00 Temperature 36.6 C Pulse Rate 78 78 Respiratory Rate 20 Blood Pressure 102/42 L Pulse Oximetry 92 92 Oxygen Delivery Nasal Cannula Oxygen Flow Rate 2 Fraction of Inspired Oxygen 08/11/24 02:00 08/11/24 02:00 08/11/24 02:00 Temperature Pulse Rate 78 78 78 Respiratory Rate 17 Blood Pressure 97/40 L 97/40 L Pulse Oximetry 97 Oxygen Delivery Oxygen Flow Rate Fraction of Inspired Oxygen 08/11/24 03:28 08/11/24 04:00 08/11/24 04:00 Temperature Pulse Rate 84 83 Res
[2024-08-11] MEDS: CEFEPIME 1 GM/NS 50 ML 1 GM/50 ML BAG IVPB ×2 (09:49→20:51)
[2024-08-11] MEDS: SODIUM ZIRCONIUM CYCLOSILICATE 10 GM POWD.PACK PO (10:40)
[2024-08-11] MEDS: EPOETIN ALFA-EPBX 10,000 UNITS/ML VIAL 10000 UNITS SUB-Q (10:44)
[2024-08-11] MEDS: NOREPINEPHRINE 8 MG/D5W 250 ML 8 MG/250 ML BAG IV CONT (15:46)
--- NOTE | 2024-08-11 15:47 | WPDPN ---
Progress Note: A&P Assessment and Plan (1) Septic shock: Code(s): A41.9 - Sepsis, unspecified organism; R65.21 - Severe sepsis with septic shock Status: Acute Assessment and Plan: Patient presented to the wound clinic for heel drainage and sent to the ED. In the ED, BP was normal initially but dropped to 63/67. She was started on appropriate abx after cultures obtained. Central line was placed and Levophed started for septic shock secondary to wet gangrene ulcer of the left foot Patient received conservative IV fluid bolus due to history of congestive heart failure and volume overload Imaging did not reveal evidence of osteomyelitis. Continue Levophed titration to maintain mean arterial pressure BCx NGTD. UCx negative Continue empiric cefepime and vancomycin. Debridement performed today for source control Appreciate auto transmission technician input patient was sent to ER from wound clinic with wet gangrene ulcer of the left foot its not OM. she developed septic shock and patient was started on fluids and Levophed however her bp is dependent on the pressure as I spoke with auto transmission technician and nursing staff, unable to wean off the Levophed, for wound patient is treated with Cefepime and vancomycin, urine and blood culture no growth so far, patient hgb is trending down seen by solution advisor suspect partially due to CKD and Epogen is ordered, and partially due to iron deficiency but unable to give iron to infection, patient remains clinically stable, and seen by auto transmission technician, solution advisor and general surgery. (2) Acute on chronic kidney failure: Qualifiers: Acute renal failure type: unspecified Code(s): N17.9 - Acute kidney failure, unspecified; N18.9 - Chronic kidney disease, unspecified Status: Acute Assessment and Plan: Patient has CKD follows with nephrology. Her Cr mostly in the low 2 range. Cr was elevated to 3.1. Likely secondary to shock. Renal US showing normal sized kidneys. Creatinine improved with IV fluids and vasopressors and back down to 1.9 which is probably at her baseline Monitor urine output, electrolytes and creatinine (3) Gangrene of left foot: Code(s): I96 - Gangrene, not elsewhere classified Status: Acute Assessment and Plan: As above. Surgery consulted for debridement which occured today. Venous doppler negative for DVT BRISA showing moderately decreased ABIs with the Right and Left both at 0.6 consistent with arterial occlusive disease. Continue current abx and dressing changes. (4) Hypothyroidism: Onset Date: 06/2021 Code(s): E03.9 - Hypothyroidism, unspecified Status: Suspected Assessment and Plan: TSH 5.2 with FT4 elevated at 2.46. Either central hyperthyroidism, noncompliance with medications or more likely related to sepsis. Hold levothyroxine. (5) Paroxysmal atrial fibrillation: Code(s): I48.0 - Paroxysmal atrial fibrillation Status: Acute Assessment and Plan: Tele showing paced rhythm. Not on anticoagulation but takes a full Aspirin and amiodarone Follow (6) Cardiomyopathy: Qualifiers: Cardiomyopathy type: ischemic Qualified Code(s): I25.5 - Ischemic cardiomyopathy Code(s): I42.9 - Cardiomyopathy, unspecified Status: Acute Assessment and Plan: Patient with known ischemic cardiomyopathy. Echo 03/20/24 showing normal LV chamber dimension with LV systolic function mildly reduced (EF 45-50%), an abnormal LV septal wall motion related to a post-operative state and trace mitral regurgitation. Hx of MV replacement and valve was well seated. Holding Entresto, Bumex and Metolazone due to septic shock Resume home meds when able (7) Chronic obstructive pulmonary disease: Code(s): J44.9 - Chronic obstructive pulmonary disease, unspecified Status: Chronic Assessment and Plan: Scattered wheezes. P.r.n. bronchodilators (8) Bilateral lower extremi
[2024-08-11] MEDS: SODIUM CHLORIDE 0.9% IV 250 ML 30 ML IV CONT (16:25)
[2024-08-12] VITALS (22 sets, daily range): BP systolic 94–130; BP diastolic 40–80; PULSE 57–72; RESP 14–20; TEMP 36.4–36.8; O2SAT 91–98
[2024-08-12] MEDS: HYDROCORTISONE SODIUM SUCCINATE 100 MG/2 ML VIAL IV PUSH ×3 (00:16→17:23)
[2024-08-12] MEDS: CENTRAL LINE FLUSH 10 ML IV PUSH ×3 (05:22→20:51)
[2024-08-12] MEDS: LEVOTHYROXINE SODIUM 75 MCG TABLET PO (05:22)
[2024-08-12] MEDS: allopurinoL 50 MG TABLET PO (05:22)
[2024-08-12 05:42] LABS: Basophils Percent Auto 0.1 % (0.2-1.2); Hemoglobin 7.3 g/dL (12.0-15.0); Immature Granulocyte Absolute 0.07 K/mm3 (0.00-0.031); Immature Granulocyte Percent A 0.9 % (0-0.5); Lymphocytes Absolute Auto 0.48 K/mm3 (0.9-3.2); Lymphocytes Percent Auto 6.3 % (18.3-44.2); Mean Corpuscular HGB Conc 30.4 g/dl (32-36); Mean Corpuscular Hemoglobin 25.3 pg (26-34); Mean Corpuscular Volume 83.3 fl (80-100); Mean Platelet Volume 10.9 fl (7.4-10.4); Monocytes Absolute Auto 0.3 K/mm3 (0.1-0.6); Monocytes Percent Auto 4.3 % (2.6-8.5); Neutrophils Absolute Auto 6.8 K/mm3 (1.3-6.7); Neutrophils Percent Auto 88.4 % (45.5-73.1); Platelet Count Result 262 k/mm3 (150-375); Red Blood Count 2.88 M/mm3 (4.2-5.4); Red Cell Distribution Width 17.1 % (11.5-14.5); White Blood Count 7.6 K/mm3 (4.5-10.0)
[2024-08-12 06:06] LABS: Alanine Aminotransferase 17 U/L (6-35); Alkaline Phosphatase 87 U/L (38-126); Anion Gap 5 mmol/L (4-12); Aspartate Amino Transferase 31 U/L (14-36); Blood Urea Nitrogen 80 mg/dL (7-17); Calcium 9.5 mg/dL (8.4-10.2); Carbon Dioxide 30 mmol/L (22-30); Chloride 102 mmol/L (98-107); Estimated CRCL calculation 20 ml/min; Estimated Glomerular Filt Rate 21; Glucose 142 mg/dL (65-110); Phosphorus 3.1 mg/dL (2.5-4.5); Potassium 4.6 mmol/L (3.4-5.0); Sodium 137 mmol/L (137-145)
[2024-08-12] MEDS: AMIODARONE HCL 200 MG TABLET PO (08:39)
[2024-08-12] MEDS: ASPIRIN 325 MG TABLET PO (08:39)
[2024-08-12] MEDS: MIDODRINE HCL 10 MG TABLET PO ×3 (08:39→17:23)
[2024-08-12] MEDS: SOD HYPOCHLORITE 1/4 STRENGTH 473 ML 1 APPLIC TOPICAL (08:40)
[2024-08-12] MEDS: ENOXAPARIN 30 MG/0.3 ML SYRINGE SUB-Q (08:40)
[2024-08-12] MEDS: PANTOPRAZOLE SODIUM IV 40 MG VIAL IV PUSH ×2 (08:40→20:51)
[2024-08-12] MEDS: COLLAGENASE OINT 30 GM TUBE 1 APPLIC TOPICAL (08:40)
[2024-08-12] MEDS: IPRATROPIUM 0.5 MG/ALBUTEROL SULFATE 2.5 MG AMPUL.NEB 3 ML INHALATION ×3 (08:46→20:02)
--- NOTE | 2024-08-12 09:11 | WPDINTPN ---
Progress Note: A&P Assessment and Plan (1) Septic shock: Code(s): A41.9 - Sepsis, unspecified organism; R65.21 - Severe sepsis with septic shock Status: Acute Assessment and Plan: Septic shock secondary to wet gangrene ulcer of the left foot and UTI Patient received conservative IV fluid bolus due to history of congestive heart failure and volume overload Continue Levophed titration to maintain mean arterial pressure Blood and urine cultures have been sent and are negative till now Continue Empiric cefepime but will discontinue vancomycin in light of negative cultures and worsening renal function 4 extremity BRISA - Moderately decreased ABIs, consistent with arterial occlusive disease. Procalcitonin level was low at 0.1 CT scan negative for any evidence of osteomyelitis or subcutaneous gas 08/09 underwent debridement and washout of left heel ulcer Continue midodrine and hydrocortisone Now off of IV crystalloids fluids and vasopressors. (2) Acute on chronic kidney failure: Qualifiers: Acute renal failure type: unspecified Code(s): N17.9 - Acute kidney failure, unspecified; N18.9 - Chronic kidney disease, unspecified Status: Acute Assessment and Plan: Patient has chronic kidney disease and sees Nephrology as outpatient. Presented with creatinine that was elevated to 3.1. Likely secondary to shock. Creatinine initially improved with IV fluids and vasopressors and now increased to 2.[address] Fu. Patient is being PRBC and will give additional small amount of IV fluids due to concern of pulmonary edema. DC vancomycin Monitor urine output electrolytes and creatinine Nephrology following Renal ultrasound was unremarkable (3) Gangrene of left foot: Code(s): I96 - Gangrene, not elsewhere classified Status: Acute Assessment and Plan: See above (4) Acute UTI: Code(s): N39.0 - Urinary tract infection, site not specified Status: Acute Assessment and Plan: See above (5) Hypothyroidism: Onset Date: 06/2021 Code(s): E03.9 - Hypothyroidism, unspecified Status: Suspected Assessment and Plan: Continue levothyroxine TSH and T4 levels reviewed (6) Paroxysmal atrial fibrillation: Code(s): I48.0 - Paroxysmal atrial fibrillation Status: Acute Assessment and Plan: Currently in paced rhythm Aspirin and amiodarone Patient not on anticoagulation as an outpatient (7) Cardiomyopathy: Qualifiers: Cardiomyopathy type: ischemic Qualified Code(s): I25.5 - Ischemic cardiomyopathy Code(s): I42.9 - Cardiomyopathy, unspecified Status: Acute Assessment and Plan: Ischemic cardiomyopathy Hold Entresto Patient will need eventually diuretics but at this time will hold due to sepsis Echo Summary 1. Complete two-dimensional, color flow and Doppler transthoracic echocardiogram is performed. 2. Left ventricular systolic function is normal, estimated at 50-55%. Hypokinesis basal inferior and inferoseptum. 3. Right ventricular chamber dimension is mildly enlarged. 4. Right ventricular systolic function is mildly reduced. 5. Linear artifact in right ventricle suggestive of catheter(s), pacemaker lead(s), or ICD lead(s). 6. Left atrial chamber dimension is mildly enlarged. 7. Right atrial chamber dimension is mildly enlarged. 8. There is mild aortic valve sclerosis. 9. There is mild aortic valve stenosis with a peak velocity of 222 cm/s, mean gradient of 9 mmHg, and aortic valve area of 1.6 cm2. 10. There is no stenosis of the bioprosthetic mitral valve.Mild perivalvular mitral regurgitation. Mean gradient across mitral valve 7 mmHg. 11. There is trace tricuspid valve regurgitation. 12. Mild pulmonary hypertension, estimated pulmonary arterial systolic pressure is 48 mmHg. 13. There is small pericardial effusion. (8) Chronic obstructive pulmonary disease: Code
[2024-08-12] MEDS: CEFEPIME 1 GM/NS 50 ML 1 GM/50 ML BAG IVPB ×2 (09:41→20:51)
--- NOTE | 2024-08-12 10:18 | PM.PNNEP ---
Progress Note: A&P Assessment and Plan (1) FRANK (acute kidney injury): Code(s): N17.9 - Acute kidney failure, unspecified Status: Acute Assessment and Plan: creatinine started at 3.1 then fell to her baseline of 1.7 but now up to 2.3 evaluation to date noted: normal renal ultrasound urine eosinophils negative urine electrolyte prerenal (but this could just be a manifestation of her cardiomyopathy) CPK okay multifactorial etiology: prerenal factors. infection/sepsis anemia AIN? -- however, no rash, negative urine eosinophils and no peripheral eosinophilia follow trend of repeat labs and UOP (2) Chronic kidney disease, stage 4 (severe): Code(s): N18.4 - Chronic kidney disease, stage 4 (severe) Status: Chronic Assessment and Plan: baseline creatinine runs ~ 1.7 - 2.2mg/dl based on outpatient evaluation, thought to be secondary to previous HTN and chronic prerenal azotemia from her CHF/cardiomyopathy with ongoing need for diuretic therapy (3) Septic shock: Code(s): A41.9 - Sepsis, unspecified organism; R65.21 - Severe sepsis with septic shock Status: Acute Assessment and Plan: resolving presumably due to wet gangrene ulcer/wound of left heel and UTI off pressors on midodrine and stress dose steroids getting antibiotics follow trend of hemodynamics (4) Gangrene of left foot: Code(s): I96 - Gangrene, not elsewhere classified Status: Acute Assessment and Plan: presumed source of sepsis Surgery following s/p debridenent and washout (on 08/09/24) local wound care (5) Acute UTI: Code(s): N39.0 - Urinary tract infection, site not specified Status: Acute Assessment and Plan: admission UA highly suggestive but culture negative on antibiotics (6) Anemia: Code(s): D64.9 - Anemia, unspecified Status: Acute Assessment and Plan: due in part to CKD and worsened by acute illness check iron studies (although would not give IV iron in the context of infection) PRBC transfusion per protocol on Retacrit (IGNACIA) follow trend of H/H (7) Cardiomyopathy: Qualifiers: Cardiomyopathy type: ischemic Qualified Code(s): I25.5 - Ischemic cardiomyopathy Code(s): I42.9 - Cardiomyopathy, unspecified Status: Acute Assessment and Plan: known ischemic cardiomyopathy last Echo noted - EF seems to be doing better holding entresto and diuretics for now follow volume status closely Will continue to follow. Subjective Date/time seen: 08/12/24 10:18 Interval history: Follow-up for acute kidney injury/acute renal failure on chronic kidney disease. Chart reviewed since last seen -- weaned off vasopressor therapy yesterday with stable hemodynamics noted; s/p IVFs and PRBC transfusion yesterday as well; renal function/creatinine a tad worse with associated decline in urine output overnight; no other acute complaints voiced at the time of my visit; no apparent distress noted at the time of my visit. Exam Narrative: General: elderly but WD/WN female in NAD Heart: normal S1 and S2; no rub Lungs: Scattered intermittent mild wheezes Abdomen: soft, nontender, nondistended, positive bowel sounds Extremities: no cyanosis or clubbing; 1+ edema Skin: left foot dressings present Objective Data Vital Signs Vital Signs: Vital Signs Temp Pulse Resp BP Pulse Ox O2 Del Method O2 Flow Rate 08/12/24 10:00 68 16 112/57 L 94 08/12/24 08:00 92 Nasal Cannula 1 08/12/24 08:55 66 20 08/12/24 08:46 69 20 08/12/24 08:46 97 Nasal Cannula 1 08/12/24 08:39 69 08/12/24 08:00 97.9 F 69 14 108/61 98 08/12/24 06:00 64 17 123/58 L 94 08/12/24 06:00 64 08/12/24 06:00 64 123/58 L 08/12/24 04:00 61 08/12/24 04:00 61 130/55 L 08/12/24 02:00 62 94/63 L
--- NOTE | 2024-08-12 10:18 | P.PNNP_ITS ---
Progress Note: A&P Assessment and Plan (1) FRANK (acute kidney injury): Code(s): N17.9 - Acute kidney failure, unspecified Status: Acute Assessment and Plan: * creatinine started at 3.1 then fell to her baseline of 1.7 but now up to 2.3 * evaluation to date noted: * normal renal ultrasound * urine eosinophils negative * urine electrolyte prerenal (but this could just be a manifestation of her cardiomyopathy) * CPK okay * multifactorial etiology: * prerenal factors. * infection/sepsis * anemia * AIN? -- however, no rash, negative urine eosinophils and no peripheral eosinophilia * follow trend of repeat labs and UOP (2) Chronic kidney disease, stage 4 (severe): Code(s): N18.4 - Chronic kidney disease, stage 4 (severe) Status: Chronic Assessment and Plan: * baseline creatinine runs ~ 1.7 - 2.2mg/dl * based on outpatient evaluation, thought to be secondary to previous HTN and chronic prerenal azotemia from her CHF/cardiomyopathy with ongoing need for d iuretic therapy (3) Septic shock: Code(s): A41.9 - Sepsis, unspecified organism; R65.21 - Severe sepsis with septic shock Status: Acute Assessment and Plan: * resolving * presumably due to wet gangrene ulcer/wound of left heel and UTI * off pressors * on midodrine and stress dose steroids * getting antibiotics * follow trend of hemodynamics (4) Gangrene of left foot: Code(s): I96 - Gangrene, not elsewhere classified Status: Acute Assessment and Plan: * presumed source of sepsis * Surgery following * s/p debridenent and washout (on 08/09/24) * local wound care (5) Acute UTI: Code(s): N39.0 - Urinary tract infection, site not specified Status: Acute Assessment and Plan: * admission UA highly suggestive but culture negative * on antibiotics (6) Anemia: Code(s): D64.9 - Anemia, unspecified Status: Acute Assessment and Plan: * due in part to CKD and worsened by acute illness * check iron studies (although would not give IV iron in the context of infection) * PRBC transfusion per protocol * on Retacrit (IGNACIA) * follow trend of H/H (7) Cardiomyopathy: Qualifiers: Cardiomyopathy type: ischemic Qualified Code(s): I25.5 - Ischemic cardiomyopathy Code(s): I42.9 - Cardiomyopathy, unspecified Status: Acute Assessment and Plan: * known ischemic cardiomyopathy * last Echo noted - EF seems to be doing better * holding entresto and diuretics for now * follow volume status closely Will continue to follow. Subjective Date/time seen: 08/12/24 10:18 Interval history: Follow-up for acute kidney injury/acute renal failure on chronic kidney disease. Chart reviewed since last seen -- weaned off vasopressor therapy yesterday with stable hemodynamics noted; s/p IVFs and PRBC transfusion yesterday as well; renal function/creatinine a tad worse with associated decline in urine output overnight; no other acute complaints voiced at the time of my visit; no apparent distress noted at the time of my visit. Exam Narrative: General: elderly but WD/WN female in NAD Heart: normal S1 and S2; no rub Lungs: Scattered intermittent mild wheezes Abdomen: soft, nontender, nondistended, positive bowel sounds Extremities: no cyanosis or clubbing; 1+ edema Skin: left foot dressings present Objective Data Vital Signs Vital Signs:
--- NOTE | 2024-08-12 11:09 | PCFNICU ---
ICU Rounding Note: Pt current nutrition is 2 g Na diet, 50-100% intakes. Chad BID for additional 90 kcal and 2.5 g protein each Nutrition recommendation: Continue current nuntrition care plan and orders. Agree with orders, Last recorded weight is 84.1 kg. Bowel Motility: +1 BM 08/12/24 Labs Reviewed: Hgb 7.3, Hct 24, GFR 21, BUN 80, Cre 2.3, Glu 142 Meds Noted: Pressors are off. Cefepime Skin: L heel: unstageable pressure Additional Notes: Pressors stopped and downgraded from ICU status to IMU status. Appetite fair to good. Drinking 100% chad. RD will monitor weight, labs, skin, intake, meds every 5 days. .
--- NOTE | 2024-08-12 11:24 | PM.PNGS ---
Progress Note: A&P Assessment and Plan (1) Ulcer of left heel: Code(s): L97.429 - Non-pressure chronic ulcer of left heel and midfoot with unspecified severity Status: Acute Assessment and Plan: Continue local wound care with enzymatic debridement and pressure offloading with waffle boots and elevating heel off the bed. No longer on vasopressors. Plan I have discussed the patient's case and plan of care with Dr. Franco. Subjective Subjective Date/Time Seen: 08/12/24 11:24 Patient reports: afebrile Interval history: Patient seen in the ICU with the wound care nurses. Her is at the bedside. No new complaints. Currently, her vasopressors have been turned off this morning. Exam Narrative: Left heel wound with about 50% healthy pink tissue and 50% superficial yellow slough in the wound bed, no significant areas of necrotic tissue, no purulence drainage, no bone exposed. Right lateral lower leg wound with 80% yellow slough and a small area of central superficial necrotic tissue. No surrounding erythema or edema. Dressing this wound with Santyl. Objective Data Vital Signs Vital Signs: Vital Signs - 24 hr 08/11/24 12:00 08/11/24 12:00 08/11/24 12:00 Temperature 97.7 F Pulse Rate 73 73 Respiratory Rate 20 Blood Pressure 115/49 L 115/49 L Pulse Oximetry 98 98 Oxygen Delivery Nasal Cannula Oxygen Flow Rate 3.5 Fraction of Inspired Oxygen 08/11/24 12:00 08/11/24 14:00 08/11/24 14:16 Temperature Pulse Rate 72 70 70 Respiratory Rate Blood Pressure 102/50 L 115/62 Pulse Oximetry Oxygen Delivery Oxygen Flow Rate Fraction of Inspired Oxygen 08/11/24 15:01 08/11/24 14:00 08/11/24 15:46 Temperature Pulse Rate 66 70 64 Respiratory Rate Blood Pressure 106/51 L 116/53 L Pulse Oximetry Oxygen Delivery Oxygen Flow Rate Fraction of Inspired Oxygen 08/11/24 16:19 08/11/24 16:40 08/11/24 14:00 Temperature 97.6 F 97.7 F Pulse Rate 67 64 70 Respiratory Rate 18 20 16 Blood Pressure 95/48 L 90/79 L 102/50 L Pulse Oximetry 96 95 95 Oxygen Delivery Oxygen Flow Rate Fraction of Inspired Oxygen 08/11/24 16:00 08/11/24 16:00 08/11/24 17:40 Temperature 97.6 F 97.6 F Pulse Rate 67 60 Respiratory Rate 18 18 Blood Pressure 103/53 L 96/51 L Pulse Oximetry 93 93 98 Oxygen Delivery Nasal Cannula Oxygen Flow Rate 2 Fraction of Inspired Oxygen 08/11/24 15:46 08/11/24 15:47 08/11/24 16:00 Temperature Pulse Rate 64 64 67 Respiratory Rate Blood Pressure 116/53 L 116/53 L 103/53 L Pulse Oximetry Oxygen Delivery Oxygen Flow Rate Fraction of Inspired Oxygen 08/11/24 18:00 08/11/24 16:00 08/11/24 18:00 Temperature Pulse Rate 57 L 67 58 L Respiratory Rate Blood Pressure 99/49 L Pulse Oximetry Oxygen Delivery Oxygen Flow Rate Fraction of Inspired Oxygen 08/11/24 18:00 08/11/24 18:40 08/11/24 19:37 Temperature 97.6 F 97.6 F 97.6 F Pulse Rate 55 L 63 58 L Respiratory Rate 15 16 17 Blood Pressure 112/52 L 112/54 L 112/53 L Pulse Oximetry 99 97 97 Oxygen Delivery Oxygen Flow Rate Fraction of Inspired Oxygen 08/11/24 20:00 08/11/24 21:00 08/11/24 20:00 Temperature Pulse Rate 56 L Respiratory Rate Blood Pressure Pulse Oximetry 99 92 Oxygen Delivery Nasal Cannula Nasal Cannula Oxygen Flow Rate 2 1 Fraction of Inspired Oxygen 08/11/24 22:00 08/11/24 22:00 08/11/24 20:00 Temperature Pulse Rate 58 L 58 L 58 L Respiratory Rate 15 Blood Pressure 113/68 112/53 L Pulse Oximetry 94 Oxygen Delivery Oxygen Flow Rate Fraction of Inspired Oxygen 08/11/24 22:00 08/12/24 00:00 08/12/24 00:00 Temperature 97.9 F Pulse Rate 58 L 63 Respiratory Rate 16 Blood Pressure 113/68 107/54 L Pulse Oximetry 96 97 Oxygen Delivery Nasal Cannula Oxygen Flow Rate 1 Fraction of Inspired Oxygen 08/12/24 00:00 10
--- NOTE | 2024-08-12 12:31 | WPDPN ---
Progress Note: A&P Assessment and Plan (1) Septic shock: Code(s): A41.9 - Sepsis, unspecified organism; R65.21 - Severe sepsis with septic shock Status: Acute Assessment and Plan: Patient presented to the wound clinic for heel drainage and sent to the ED. In the ED, BP was normal initially but dropped to 63/67. She was started on appropriate abx after cultures obtained. Central line was placed and Levophed started for septic shock secondary to wet gangrene ulcer of the left foot Patient received conservative IV fluid bolus due to history of congestive heart failure and volume overload Imaging did not reveal evidence of osteomyelitis. Continue Levophed titration to maintain mean arterial pressure BCx NGTD. UCx negative Continue empiric cefepime and vancomycin. Debridement performed today for source control Appreciate ground source heat pump technician input patient was sent to ER from wound clinic with wet gangrene ulcer of the left foot its not OM. she developed septic shock and patient was started on fluids and Levophed however her bp was dependent on the pressure as I spoke with ground source heat pump technician and nursing staff, unable to wean off the Levophed. from late afternoon on 08/11 patient was weaned off the Levophed and currently on oral medications, for wound patient is treated with Cefepime and vancomycin, urine and blood culture no growth so far, patient hgb was trending down seen by courtesy bus driver suspect partially due to CKD and Epogen was ordered, and partially due to iron deficiency but unable to give iron to infection, Patient if now off pressure will discharge patient from ICU to IMU patient remains clinically stable, and seen by ground source heat pump technician, courtesy bus driver and general surgery. (2) Acute on chronic kidney failure: Qualifiers: Acute renal failure type: unspecified Code(s): N17.9 - Acute kidney failure, unspecified; N18.9 - Chronic kidney disease, unspecified Status: Acute Assessment and Plan: Patient has CKD follows with nephrology. Her Cr mostly in the low 2 range. Cr was elevated to 3.1. Likely secondary to shock. Renal US showing normal sized kidneys. Creatinine improved with IV fluids and vasopressors and back down to 1.9 which is probably at her baseline Monitor urine output, electrolytes and creatinine (3) Gangrene of left foot: Code(s): I96 - Gangrene, not elsewhere classified Status: Acute Assessment and Plan: As above. Surgery consulted for debridement which occured today. Venous doppler negative for DVT BRISA showing moderately decreased ABIs with the Right and Left both at 0.6 consistent with arterial occlusive disease. Continue current abx and dressing changes. (4) Hypothyroidism: Onset Date: 06/2021 Code(s): E03.9 - Hypothyroidism, unspecified Status: Suspected Assessment and Plan: TSH 5.2 with FT4 elevated at 2.46. Either central hyperthyroidism, noncompliance with medications or more likely related to sepsis. Hold levothyroxine. (5) Paroxysmal atrial fibrillation: Code(s): I48.0 - Paroxysmal atrial fibrillation Status: Acute Assessment and Plan: Tele showing paced rhythm. Not on anticoagulation but takes a full Aspirin and amiodarone Follow (6) Cardiomyopathy: Qualifiers: Cardiomyopathy type: ischemic Qualified Code(s): I25.5 - Ischemic cardiomyopathy Code(s): I42.9 - Cardiomyopathy, unspecified Status: Acute Assessment and Plan: Patient with known ischemic cardiomyopathy. Echo 03/20/24 showing normal LV chamber dimension with LV systolic function mildly reduced (EF 45-50%), an abnormal LV septal wall motion related to a post-operative state and trace mitral regurgitation. Hx of MV replacement and valve was well seated. Holding Entresto, Bumex and Metolazone due to septic shock Resume home meds when able (7) Chronic obstructive pulmonary disease: Code(s): J44.9 - Chroni
[2024-08-13] VITALS (22 sets, daily range): BP systolic 115–125; BP diastolic 50–61; PULSE 59–76; RESP 16–28; TEMP 36.5–36.7; O2SAT 93–100
[2024-08-13] MEDS: HYDROCORTISONE SODIUM SUCCINATE 100 MG/2 ML VIAL IV PUSH ×2 (01:03→08:51)
[2024-08-13 04:59] LABS: Hemoglobin 7.5 g/dL (12.0-15.0); Mean Corpuscular HGB Conc 31.3 g/dl (32-36); Mean Corpuscular Hemoglobin 25.6 pg (26-34); Mean Corpuscular Volume 81.9 fl (80-100); Mean Platelet Volume 10.6 fl (7.4-10.4); Platelet Count Result 284 k/mm3 (150-375); Red Blood Count 2.93 M/mm3 (4.2-5.4); Red Cell Distribution Width 17.2 % (11.5-14.5); White Blood Count 7.7 K/mm3 (4.5-10.0)
[2024-08-13 05:26] LABS: Alanine Aminotransferase 30 U/L (6-35); Albumin Level 3.7 g/dL (3.5-5.1); Alkaline Phosphatase 96 U/L (38-126); Anion Gap 5 mmol/L (4-12); Aspartate Amino Transferase 48 U/L (14-36); Bilirubin,Total 0.7 mg/dL (0.2-1.3); Blood Urea Nitrogen 95 mg/dL (7-17); Calcium 9.5 mg/dL (8.4-10.2); Carbon Dioxide 31 mmol/L (22-30); Chloride 100 mmol/L (98-107); Estimated CRCL calculation 21 ml/min; Estimated Glomerular Filt Rate 21; Glucose 152 mg/dL (65-110); Magnesium 1.9 mg/dL (1.6-2.3); Phosphorus 2.8 mg/dL (2.5-4.5); Potassium 4.4 mmol/L (3.4-5.0); Sodium 136 mmol/L (137-145)
[2024-08-13] MEDS: LEVOTHYROXINE SODIUM 75 MCG TABLET PO (05:39)
[2024-08-13] MEDS: CENTRAL LINE FLUSH 10 ML IV PUSH (05:40)
[2024-08-13] MEDS: CEFEPIME 1 GM/NS 50 ML 1 GM/50 ML BAG IVPB (08:50)
[2024-08-13] MEDS: MIDODRINE HCL 10 MG TABLET PO ×3 (08:50→17:41)
[2024-08-13] MEDS: AMIODARONE HCL 200 MG TABLET PO (08:50)
[2024-08-13] MEDS: ASPIRIN 325 MG TABLET PO (08:50)
[2024-08-13] MEDS: ENOXAPARIN 30 MG/0.3 ML SYRINGE SUB-Q (08:51)
[2024-08-13] MEDS: PANTOPRAZOLE SODIUM IV 40 MG VIAL IV PUSH (08:51)
[2024-08-13] MEDS: COLLAGENASE OINT 30 GM TUBE 1 APPLIC TOPICAL (08:52)
--- NOTE | 2024-08-13 09:56 | P.PNNP_ITS ---
Progress Note: A&P Assessment and Plan (1) FRANK (acute kidney injury): Code(s): N17.9 - Acute kidney failure, unspecified Status: Acute Assessment and Plan: * creatinine started at 3.1 then fell to her baseline of 1.7 but now up to 2.3 * evaluation to date noted: * normal renal ultrasound * urine eosinophils negative * urine electrolyte prerenal (but this could just be a manifestation of her cardiomyopathy) * CPK okay * multifactorial etiology: * prerenal factors. * infection/sepsis * anemia * AIN? -- however, no rash, negative urine eosinophils and no peripheral eosinophilia * azotemia/elevated BUN likely secondary to steroid use * follow trend of repeat labs and UOP (2) Chronic kidney disease, stage 4 (severe): Code(s): N18.4 - Chronic kidney disease, stage 4 (severe) Status: Chronic Assessment and Plan: * baseline creatinine runs ~ 1.7 - 2.2mg/dl * based on outpatient evaluation, thought to be secondary to previous HTN and chronic prerenal azotemia from her CHF/cardiomyopathy with ongoing need for diuretic therapy (3) Septic shock: Code(s): A41.9 - Sepsis, unspecified organism; R65.21 - Severe sepsis with septic shock Status: Acute Assessment and Plan: * resolving * presumably due to wet gangrene ulcer/wound of left heel and UTI * off pressors * on midodrine and stress dose steroids * wean off steroids * getting antibiotics * follow trend of hemodynamics (4) Gangrene of left foot: Code(s): I96 - Gangrene, not elsewhere classified Status: Acute Assessment and Plan: * presumed source of sepsis * Surgery following * s/p debridenent and washout (on 08/09/24) * local wound care (5) Anemia: Code(s): D64.9 - Anemia, unspecified Status: Acute Assessment and Plan: * due in part to CKD and worsened by acute illness * evidence of iron deficiency by anemia studies... * HOEVER, holding IV iron in the context of infection * PRBC transfusion per protocol * on Retacrit (IGNACIA) * follow trend of H/H (6) Cardiomyopathy: Qualifiers: Cardiomyopathy type: ischemic Qualified Code(s): I25.5 - Ischemic cardiomyopathy Code(s): I42.9 - Cardiomyopathy, unspecified Status: Acute Assessment and Plan: * known ischemic cardiomyopathy * last Echo noted - EF seems to be doing better * holding entresto and diuretics for now * if BP tolerates, not opposed to restart... * follow volume status closely Will continue to follow. Subjective Date/time seen: 08/13/24 09:56 Interval history: Follow-up for acute kidney injury/acute renal failure on chronic kidney disease. Transferred out of ICU yesterday; stable hemodynamics noted at this time; renal function/creatinine remains relatively stable by recent testing however d iminished urine output noted with rising BUN; no apparet distress voiced when I saw her; no other issues/events overnight or earlier this AM. Exam Narrative: General: elderly but WD/WN female in NAD Heart: normal S1 and S2; no rub Lungs: coarse breath sounds Abdomen: soft, nontender, nondistended, positive bowel sounds Extremities: no cyanosis or clubbing; 1+ edema Skin: left foot dressings in place Objective Data Vital Signs Vital Signs: Vital Signs Temp Pulse Resp BP Pulse
--- NOTE | 2024-08-13 09:56 | PM.PNNEP ---
Progress Note: A&P Assessment and Plan (1) FRANK (acute kidney injury): Code(s): N17.9 - Acute kidney failure, unspecified Status: Acute Assessment and Plan: creatinine started at 3.1 then fell to her baseline of 1.7 but now up to 2.3 evaluation to date noted: normal renal ultrasound urine eosinophils negative urine electrolyte prerenal (but this could just be a manifestation of her cardiomyopathy) CPK okay multifactorial etiology: prerenal factors. infection/sepsis anemia AIN? -- however, no rash, negative urine eosinophils and no peripheral eosinophilia azotemia/elevated BUN likely secondary to steroid use follow trend of repeat labs and UOP (2) Chronic kidney disease, stage 4 (severe): Code(s): N18.4 - Chronic kidney disease, stage 4 (severe) Status: Chronic Assessment and Plan: baseline creatinine runs ~ 1.7 - 2.2mg/dl based on outpatient evaluation, thought to be secondary to previous HTN and chronic prerenal azotemia from her CHF/cardiomyopathy with ongoing need for diuretic therapy (3) Septic shock: Code(s): A41.9 - Sepsis, unspecified organism; R65.21 - Severe sepsis with septic shock Status: Acute Assessment and Plan: resolving presumably due to wet gangrene ulcer/wound of left heel and UTI off pressors on midodrine and stress dose steroids wean off steroids getting antibiotics follow trend of hemodynamics (4) Gangrene of left foot: Code(s): I96 - Gangrene, not elsewhere classified Status: Acute Assessment and Plan: presumed source of sepsis Surgery following s/p debridenent and washout (on 08/09/24) local wound care (5) Anemia: Code(s): D64.9 - Anemia, unspecified Status: Acute Assessment and Plan: due in part to CKD and worsened by acute illness evidence of iron deficiency by anemia studies... HOEVER, holding IV iron in the context of infection PRBC transfusion per protocol on Retacrit (IGNACIA) follow trend of H/H (6) Cardiomyopathy: Qualifiers: Cardiomyopathy type: ischemic Qualified Code(s): I25.5 - Ischemic cardiomyopathy Code(s): I42.9 - Cardiomyopathy, unspecified Status: Acute Assessment and Plan: known ischemic cardiomyopathy last Echo noted - EF seems to be doing better holding entresto and diuretics for now if BP tolerates, not opposed to restart... follow volume status closely Will continue to follow. Subjective Date/time seen: 08/13/24 09:56 Interval history: Follow-up for acute kidney injury/acute renal failure on chronic kidney disease. Transferred out of ICU yesterday; stable hemodynamics noted at this time; renal function/creatinine remains relatively stable by recent testing however diminished urine output noted with rising BUN; no apparet distress voiced when I saw her; no other issues/events overnight or earlier this AM. Exam Narrative: General: elderly but WD/WN female in NAD Heart: normal S1 and S2; no rub Lungs: coarse breath sounds Abdomen: soft, nontender, nondistended, positive bowel sounds Extremities: no cyanosis or clubbing; 1+ edema Skin: left foot dressings in place Objective Data Vital Signs Vital Signs: Vital Signs Temp Pulse Resp BP Pulse Ox O2 Del Method O2 Flow Rate 08/13/24 08:50 64 08/13/24 07:51 97.9 F 66 24 H 119/55 L 97 08/13/24 06:00 64 08/13/24 04:00 59 L 08/13/24 04:43 97.7 F 62 20 115/61 100 08/13/24 04:00 94 Nasal Cannula 1 08/13/24 02:00 64 08/13/24 00:00 69 08/13/24 00:00 94 Nasal Cannula 1 08/12/24 23:17 97.9 F 63 20 106/40 L 94 08/12/24 22:00 61 08/12/24 20:00 61 08/12/24 20:00 95 Nasal Cannula 1 08/12/24 20:14 65 18 08/12/24 20:04 95 Nasal Cannula 1 08/12/24 20:03 64 16 08/12/24 20:02 98.3 F 60 20
[2024-08-13] MEDS: HYDROCORTISONE SODIUM SUCCINATE 100 MG/2 ML VIAL 50 MG IV PUSH ×2 (12:10→22:30)
[2024-08-13] MEDS: EPOETIN ALFA-EPBX 10,000 UNITS/ML VIAL 10000 UNITS SUB-Q (12:11)
[2024-08-13] MEDS: LEVALBUTEROL NEB 1.25 MG/3 ML INHALATION ×2 (13:36→20:51)
[2024-08-13] MEDS: UMECLIDINIUM BROMIDE 62.5 MCG ELLIPTA 1 PUFF INHALATION (13:36)
--- NOTE | 2024-08-13 16:59 | PM.IMPN ---
Progress Note: A&P Assessment and Plan (1) Septic shock: Code(s): A41.9 - Sepsis, unspecified organism; R65.21 - Severe sepsis with septic shock Status: Acute Assessment and Plan: Patient presented to the wound clinic for heel drainage and sent to the ED. In the ED, BP was normal initially but dropped to 63/67. She was started on appropriate abx after cultures obtained. Central line was placed and Levophed started for septic shock secondary to wet gangrene ulcer of the left foot Patient received conservative IV fluid bolus due to history of congestive heart failure and volume overload Imaging did not reveal evidence of osteomyelitis. She was stabilized and was able to be weaned off pressors. BCx and UCx negative. Debridement performed 08/09 for source control. Appreciate GenSurg input Continue abx per GenSurg Wean off Solu-Cortef and continue Midodrine. Remove Rt IJ once peripheral access obtained. (2) Acute on chronic kidney failure: Qualifiers: Acute renal failure type: unspecified Code(s): N17.9 - Acute kidney failure, unspecified; N18.9 - Chronic kidney disease, unspecified Status: Acute Assessment and Plan: Patient has CKD and follows with nephrology. Her Cr mostly in the low 2 range. Cr was elevated to 3.1. Likely secondary to shock, sepsis, anemia. Renal US showing normal sized kidneys. Creatinine improved with IV fluids and vasopressors and back down to 1.7 but increased over the past few days to 2.3 Nephrology following and apprecaite their input Monitor urine output, electrolytes and creatinine (3) Gangrene of left foot: Code(s): I96 - Gangrene, not elsewhere classified Status: Acute Assessment and Plan: As above. Surgery consulted for debridement which occurred on 08/09 Venous doppler negative for DVT BRISA showing moderately decreased ABIs with the Right and Left both at 0.6 consistent with arterial occlusive disease. Continue current abx and dressing changes. Abx adjustment per GenSurg (4) Hypothyroidism: Onset Date: 06/2021 Code(s): E03.9 - Hypothyroidism, unspecified Status: Suspected Assessment and Plan: TSH 5.2 with FT4 elevated at 2.46. Either central hyperthyroidism, noncompliance with medications or more likely related to sepsis. Levothyroxine resumed. Will need repeat testing as outpatient. (5) Paroxysmal atrial fibrillation: Code(s): I48.0 - Paroxysmal atrial fibrillation Status: Acute Assessment and Plan: Tele showing paced rhythm. Not on anticoagulation but takes a full Aspirin and amiodarone Follow (6) Cardiomyopathy: Qualifiers: Cardiomyopathy type: ischemic Qualified Code(s): I25.5 - Ischemic cardiomyopathy Code(s): I42.9 - Cardiomyopathy, unspecified Status: Acute Assessment and Plan: Patient with known ischemic cardiomyopathy. Echo 03/20/24 showing normal LV chamber dimension with LV systolic function mildly reduced (EF 45-50%), an abnormal LV septal wall motion related to a post-operative state and trace mitral regurgitation. Hx of MV replacement and valve was well seated. Holding Entresto, Bumex and Metolazone due to septic shock. Was on Coreg 3.125mg BID but this has been discontinued earlier this year. Resume home meds when able (7) Chronic obstructive pulmonary disease: Code(s): J44.9 - Chronic obstructive pulmonary disease, unspecified Status: Chronic Assessment and Plan: Scattered wheezes. P.r.n. bronchodilators available She was on Stiolto in March but stopped at discharge Will add scheduled Xopenex and Incruse (8) Bilateral lower extremity edema: Code(s): R60.0 - Localized edema Status: Acute Assessment and Plan: Secondary to congestive heart failure and CKD Lower extremity Dopplers negative for DVT Diuretics when able (9) Acute UTI: Code(s): N39.0 - Urinary tract in
[2024-08-13] MEDS: IRON SUCROSE COMPLEX 100 MG in SODIUM CHLORIDE 0.9% IV 50 ML 220 MG IVPB (18:01)
[2024-08-13] MEDS: DOXYCYCLINE HYCLATE 100 MG TABLET PO (20:24)
[2024-08-13] MEDS: AMOXICILLIN/CLAVULANATE K 500-125 MG TAB 1 TABLET PO (20:24)
[2024-08-14] VITALS (24 sets, daily range): BP systolic 106–146; BP diastolic 52–72; PULSE 66–82; RESP 16–20; TEMP 36.4–37; O2SAT 87–98
[2024-08-14 04:23] LABS: Basophils Percent Auto 0.1 % (0.2-1.2); Hematocrit 23.5 % (37.0-47.0); Hemoglobin 7.5 g/dL (12.0-15.0); Immature Granulocyte Absolute 0.17 K/mm3 (0.00-0.031); Immature Granulocyte Percent A 1.9 % (0-0.5); Lymphocytes Absolute Auto 0.99 K/mm3 (0.9-3.2); Lymphocytes Percent Auto 10.9 % (18.3-44.2); Mean Corpuscular HGB Conc 31.9 g/dl (32-36); Mean Corpuscular Hemoglobin 25.9 pg (26-34); Monocytes Absolute Auto 1.1 K/mm3 (0.1-0.6); Monocytes Percent Auto 11.7 % (2.6-8.5); Neutrophils Absolute Auto 6.9 K/mm3 (1.3-6.7); Neutrophils Percent Auto 75.4 % (45.5-73.1); Nucleated Red Blood Cells Perc 0.7 % (0.0-0.2); Platelet Count Result 339 k/mm3 (150-375); Red Cell Distribution Width 17.1 % (11.5-14.5); White Blood Count 9.1 K/mm3 (4.5-10.0)
[2024-08-14 04:34] LABS: Albumin Level 3.8 g/dL (3.5-5.1); Anion Gap 7 mmol/L (4-12); Blood Urea Nitrogen 106 mg/dL (7-17); Calcium 9.7 mg/dL (8.4-10.2); Carbon Dioxide 28 mmol/L (22-30); Chloride 99 mmol/L (98-107); Estimated CRCL calculation 21 ml/min; Estimated Glomerular Filt Rate 22; Glucose 107 mg/dL (65-110); Phosphorus 1.9 mg/dL (2.5-4.5); Potassium 3.6 mmol/L (3.4-5.0); Sodium 134 mmol/L (137-145)
[2024-08-14] MEDS: allopurinoL 50 MG TABLET PO (06:19)
[2024-08-14] MEDS: HYDROCORTISONE SODIUM SUCCINATE 100 MG/2 ML VIAL 50 MG IV PUSH ×3 (06:19→22:30)
[2024-08-14] MEDS: LEVOTHYROXINE SODIUM 75 MCG TABLET PO (06:20)
[2024-08-14] MEDS: LEVALBUTEROL NEB 1.25 MG/3 ML INHALATION ×3 (07:08→20:12)
[2024-08-14] MEDS: UMECLIDINIUM BROMIDE 62.5 MCG ELLIPTA 1 PUFF INHALATION (07:20)
[2024-08-14] MEDS: DOXYCYCLINE HYCLATE 100 MG TABLET PO ×2 (08:28→20:25)
[2024-08-14] MEDS: ASPIRIN 325 MG TABLET PO (08:28)
[2024-08-14] MEDS: AMIODARONE HCL 200 MG TABLET PO (08:28)
[2024-08-14] MEDS: MIDODRINE HCL 10 MG TABLET PO ×3 (08:29→17:33)
[2024-08-14] MEDS: ENOXAPARIN 30 MG/0.3 ML SYRINGE SUB-Q (08:29)
[2024-08-14] MEDS: AMOXICILLIN/CLAVULANATE K 500-125 MG TAB 1 TABLET PO ×2 (08:29→20:25)
[2024-08-14] MEDS: IRON SUCROSE COMPLEX 100 MG in SODIUM CHLORIDE 0.9% IV 50 ML 220 MG IVPB (08:29)
--- NOTE | 2024-08-14 11:55 | PM.PNNEP ---
Progress Note: A&P Assessment and Plan (1) FRANK (acute kidney injury): Code(s): N17.9 - Acute kidney failure, unspecified Status: Acute Assessment and Plan: creatinine started at 3.1 but now closer to baseline evaluation to date noted: normal renal ultrasound urine eosinophils negative urine electrolyte prerenal (but this could just be a manifestation of her cardiomyopathy) CPK okay multifactorial etiology: prerenal factors. infection/sepsis anemia AIN? -- however, no rash, negative urine eosinophils and no peripheral eosinophilia azotemia/elevated BUN likely secondary to steroid use follow trend of repeat labs and UOP (2) Chronic kidney disease, stage 4 (severe): Code(s): N18.4 - Chronic kidney disease, stage 4 (severe) Status: Chronic Assessment and Plan: baseline creatinine runs ~ 1.7 - 2.2mg/dl based on outpatient evaluation, thought to be secondary to previous HTN and chronic prerenal azotemia from her CHF/cardiomyopathy with ongoing need for diuretic therapy (3) Septic shock: Code(s): A41.9 - Sepsis, unspecified organism; R65.21 - Severe sepsis with septic shock Status: Acute Assessment and Plan: resolving presumably due to wet gangrene ulcer/wound of left heel and UTI off pressors on midodrine and stress dose steroids wean off steroids getting antibiotics follow trend of hemodynamics (4) Gangrene of left foot: Code(s): I96 - Gangrene, not elsewhere classified Status: Acute Assessment and Plan: presumed source of sepsis Surgery following s/p debridenent and washout (on 08/09/24) local wound care (5) Anemia: Code(s): D64.9 - Anemia, unspecified Status: Acute Assessment and Plan: due in part to CKD and worsened by acute illness evidence of iron deficiency by anemia studies... HOEVER, holding IV iron in the context of infection PRBC transfusion per protocol on Retacrit (IGNACIA) follow trend of H/H (6) Cardiomyopathy: Qualifiers: Cardiomyopathy type: ischemic Qualified Code(s): I25.5 - Ischemic cardiomyopathy Code(s): I42.9 - Cardiomyopathy, unspecified Status: Acute Assessment and Plan: known ischemic cardiomyopathy last Echo noted - EF seems to be doing better holding entresto and diuretics for now if BP tolerates, not opposed to restart... follow volume status closely Will continue to follow. Subjective Date/time seen: 08/14/24 11:55 Interval history: Follow-up for acute kidney injury/acute renal failure on chronic kidney disease. Resting comfortably in bed without any issues or problems voiced at the time of my visit; renal function/creatinine relatively stable with the exception of her rising/elevated BUN; better urine output noted overnight and last 24 hours; no apparent distress noted. Exam Narrative: General: elderly but WD/WN female in NAD Heart: normal S1 and S2; no rub Lungs: coarse breath sounds Abdomen: soft, nontender, nondistended, positive bowel sounds Extremities: no cyanosis or clubbing; 1+ edema Skin: left foot dressings noted Objective Data Vital Signs Vital Signs: Vital Signs Temp Pulse Resp BP Pulse Ox O2 Del Method O2 Flow Rate 08/14/24 11:00 98 F 77 18 106/72 93 08/14/24 08:00 97.6 F 76 20 133/54 L 98 08/14/24 08:28 82 08/14/24 07:41 96 Nasal Cannula 1 08/14/24 07:20 74 20 08/14/24 07:09 94 Nasal Cannula 1 08/14/24 07:08 74 20 08/14/24 07:08 87 L Room Air 08/14/24 06:00 76 08/14/24 04:00 98.2 F 76 16 132/59 L 93 08/14/24 04:00 Room Air 08/14/24 04:00 76 08/14/24 02:00 77 08/14/24 00:00 Room Air 08/14/24 00:00 69 08/14/24 00:29 98.5 F 68 16 121/52 L 96 08/13/24 22:00 69 08/13/24 20:59 69 18 08/13/24 20:00 97 Dora
--- NOTE | 2024-08-14 11:55 | P.PNNP_ITS ---
Progress Note: A&P Assessment and Plan (1) FRANK (acute kidney injury): Code(s): N17.9 - Acute kidney failure, unspecified Status: Acute Assessment and Plan: * creatinine started at 3.1 but now closer to baseline * evaluation to date noted: * normal renal ultrasound * urine eosinophils negative * urine electrolyte prerenal (but this could just be a manifestation of her cardiomyopathy) * CPK okay * multifactorial etiology: * prerenal factors. * infection/sepsis * anemia * AIN? -- however, no rash, negative urine eosinophils and no peripheral eosinophilia * azotemia/elevated BUN likely secondary to steroid use * follow trend of repeat labs and UOP (2) Chronic kidney disease, stage 4 (severe): Code(s): N18.4 - Chronic kidney disease, stage 4 (severe) Status: Chronic Assessment and Plan: * baseline creatinine runs ~ 1.7 - 2.2mg/dl * based on outpatient evaluation, thought to be secondary to previous HTN and chronic prerenal azotemia from her CHF/cardiomyopathy with ongoing need for diuretic therapy (3) Septic shock: Code(s): A41.9 - Sepsis, unspecified organism; R65.21 - Severe sepsis with septic shock Status: Acute Assessment and Plan: * resolving * presumably due to wet gangrene ulcer/wound of left heel and UTI * off pressors * on midodrine and stress dose steroids * wean off steroids * getting antibiotics * follow trend of hemodynamics (4) Gangrene of left foot: Code(s): I96 - Gangrene, not elsewhere classified Status: Acute Assessment and Plan: * presumed source of sepsis * Surgery following * s/p debridenent and washout (on 08/09/24) * local wound care (5) Anemia: Code(s): D64.9 - Anemia, unspecified Status: Acute Assessment and Plan: * due in part to CKD and worsened by acute illness * evidence of iron deficiency by anemia studies... * HOEVER, holding IV iron in the context of infection * PRBC transfusion per protocol * on Retacrit (IGNACIA) * follow trend of H/H (6) Cardiomyopathy: Qualifiers: Cardiomyopathy type: ischemic Qualified Code(s): I25.5 - Ischemic cardiomyopathy Code(s): I42.9 - Cardiomyopathy, unspecified Status: Acute Assessment and Plan: * known ischemic cardiomyopathy * last Echo noted - EF seems to be doing better * holding entresto and diuretics for now * if BP tolerates, not opposed to restart... * follow volume status closely Will continue to follow. Subjective Date/time seen: 08/14/24 11:55 Interval history: Follow-up for acute kidney injury/acute renal failure on chronic kidney disease. Resting comfortably in bed without any issues or problems voiced at the time of my visit; renal function/creatinine relatively stable with the exception of her rising/elevated BUN; better urine output noted overnight and last 24 hours; no apparent distress noted. Exam Narrative: General: elderly but WD/WN female in NAD Heart: normal S1 and S2; no rub Lungs: coarse breath sounds Abdomen: soft, nontender, nondistended, positive bowel sounds Extremities: no cyanosis or clubbing; 1+ edema Skin: left foot dressings noted Objective Data Vital Signs Vital Signs: Vital Signs Temp Pulse Resp BP Pulse Ox O2 Del Method O2 Flow Rate 08/14/24 11:00
[2024-08-14] MEDS: COLLAGENASE OINT 30 GM TUBE 1 APPLIC TOPICAL (14:27)
--- NOTE | 2024-08-14 14:41 | PM.IMPN ---
Progress Note: A&P Assessment and Plan (1) Septic shock: Code(s): A41.9 - Sepsis, unspecified organism; R65.21 - Severe sepsis with septic shock Status: Acute Assessment and Plan: Patient presented to the wound clinic for heel drainage and sent to the ED. In the ED, BP was normal initially but dropped to 63/67. Pt Pt was initially in ICU Imaging did not reveal evidence of osteomyelitis. She was stabilized and was able to be weaned off pressors. BCx and UCx negative. Debridement performed 08/09 for source control. Appreciate GenSurg input Continue abx per GenSurg pt transitioned to oral ABX now (2) Acute on chronic kidney failure: Qualifiers: Acute renal failure type: unspecified Code(s): N17.9 - Acute kidney failure, unspecified; N18.9 - Chronic kidney disease, unspecified Status: Acute Assessment and Plan: Patient has CKD and follows with nephrology. Her Cr mostly in the low 2 range. Cr was elevated to 3.1. Likely secondary to shock, sepsis, anemia. Renal US showing normal sized kidneys. watch kidney function (3) Gangrene of left foot: Code(s): I96 - Gangrene, not elsewhere classified Status: Acute Assessment and Plan: As above. Surgery consulted for debridement which occurred on 08/09 Venous doppler negative for DVT BRISA showing moderately decreased ABIs with the Right and Left both at 0.6 consistent with arterial occlusive disease. Continue current abx and dressing changes. Abx adjustment per GenSurg (4) Hypothyroidism: Onset Date: 06/2021 Code(s): E03.9 - Hypothyroidism, unspecified Status: Suspected Assessment and Plan: TSH 5.2 with FT4 elevated at 2.46. Either central hyperthyroidism, noncompliance with medications or more likely related to sepsis. Levothyroxine resumed. (5) Paroxysmal atrial fibrillation: Code(s): I48.0 - Paroxysmal atrial fibrillation Status: Acute Assessment and Plan: Tele showing paced rhythm. Not on anticoagulation but takes a full Aspirin and amiodarone Follow (6) Cardiomyopathy: Qualifiers: Cardiomyopathy type: ischemic Qualified Code(s): I25.5 - Ischemic cardiomyopathy Code(s): I42.9 - Cardiomyopathy, unspecified Status: Acute Assessment and Plan: Patient with known ischemic cardiomyopathy. Echo 03/20/24 showing normal LV chamber dimension with LV systolic function mildly reduced (EF 45-50%), an abnormal LV septal wall motion related to a post-operative state and trace mitral regurgitation. Hx of MV replacement and valve was well seated. Holding Entresto, Bumex and Metolazone due to septic shock. Was on Coreg 3.125mg BID but this has been discontinued earlier this year. Resume home meds when able order CXR today Pt needing oxygen sleep apnea ordered (7) Chronic obstructive pulmonary disease: Code(s): J44.9 - Chronic obstructive pulmonary disease, unspecified Status: Chronic Assessment and Plan: Scattered wheezes. P.r.n. bronchodilators available She was on Stiolto in March but stopped at discharge Will add scheduled Xopenex and Incruse (8) Bilateral lower extremity edema: Code(s): R60.0 - Localized edema Status: Acute Assessment and Plan: Secondary to congestive heart failure and CKD Lower extremity Dopplers negative for DVT Diuretics when able (9) Acute UTI: Code(s): N39.0 - Urinary tract infection, site not specified Status: Acute Assessment and Plan: UA was concerning for UTI. UCx collected. Abx started. UCx negative. UTI ruled out Plan Anemia - Hgb trending down. She has chronic anemia with baseline Hgb 9-10 range this year. Hgb was normal last year. Hgb 9.1 on admission but has trended to 7 range. B12/folate levels normal. Iron 18 with normal TIBC and ISat 6%. Ferritin also low end at 83 consistent with iron deficiency. Hgb did drop to
[2024-08-15] VITALS (19 sets, daily range): BP systolic 127–145; BP diastolic 61–78; PULSE 68–80; RESP 16–20; TEMP 36.4–37; O2SAT 91–98
[2024-08-15 06:21] LABS: Hematocrit 23.5 % (37.0-47.0); Hemoglobin 7.5 g/dL (12.0-15.0); Mean Corpuscular HGB Conc 31.9 g/dl (32-36); Mean Corpuscular Volume 81.6 fl (80-100); Mean Platelet Volume 10.4 fl (7.4-10.4); Platelet Count Result 330 k/mm3 (150-375); Red Blood Count 2.88 M/mm3 (4.2-5.4); Red Cell Distribution Width 17.2 % (11.5-14.5); White Blood Count 9.5 K/mm3 (4.5-10.0)
[2024-08-15 06:32] LABS: Anion Gap 8 mmol/L (4-12); Blood Urea Nitrogen 103 mg/dL (7-17); Calcium 9.5 mg/dL (8.4-10.2); Carbon Dioxide 28 mmol/L (22-30); Chloride 100 mmol/L (98-107); Estimated CRCL calculation 21 ml/min; Estimated Glomerular Filt Rate 22; Glucose 132 mg/dL (65-110); Potassium 3.6 mmol/L (3.4-5.0); Sodium 136 mmol/L (137-145)
[2024-08-15] MEDS: LEVOTHYROXINE SODIUM 75 MCG TABLET PO (07:00)
[2024-08-15] MEDS: HYDROCORTISONE SODIUM SUCCINATE 100 MG/2 ML VIAL 50 MG IV PUSH (07:00)
[2024-08-15] MEDS: LEVALBUTEROL NEB 1.25 MG/3 ML INHALATION ×2 (08:03→13:42)
[2024-08-15] MEDS: UMECLIDINIUM BROMIDE 62.5 MCG ELLIPTA 1 PUFF INHALATION (08:03)
[2024-08-15] MEDS: DOXYCYCLINE HYCLATE 100 MG TABLET PO (09:21)
[2024-08-15] MEDS: MIDODRINE HCL 10 MG TABLET PO ×2 (09:21→13:25)
[2024-08-15] MEDS: ASPIRIN 325 MG TABLET PO (09:21)
[2024-08-15] MEDS: AMOXICILLIN/CLAVULANATE K 500-125 MG TAB 1 TABLET PO (09:21)
[2024-08-15] MEDS: ENOXAPARIN 30 MG/0.3 ML SYRINGE SUB-Q (09:22)
[2024-08-15] MEDS: AMIODARONE HCL 200 MG TABLET PO (09:22)
[2024-08-15] MEDS: IRON SUCROSE COMPLEX 100 MG in SODIUM CHLORIDE 0.9% IV 50 ML 220 MG IVPB (09:24)
[2024-08-15] MEDS: COLLAGENASE OINT 30 GM TUBE 1 APPLIC TOPICAL (09:25)
[2024-08-15] MEDS: EPOETIN ALFA-EPBX 10,000 UNITS/ML VIAL 10000 UNITS SUB-Q (09:25)
--- NOTE | 2024-08-15 11:15 | P.DS_ITS ---
DS: Admitting Diagnosis Discharge Date 08/15/2024 Admitting Diagnosis Heel wound DS: Discharge Diagnosis Discharge Diagnosis (1) Septic shock: Code(s): A41.9 - Sepsis, unspecified organism; R65.21 - Severe sepsis with septic shock Status: Acute Assessment and Plan: Patient presented to the wound clinic for heel drainage and sent to the ED. In the ED, BP was normal initially but dropped to 63/67. Pt Pt was initially in ICU Imaging did not reveal evidence of osteomyelitis. She was stabilized and was able to be weaned off pressors. BCx and UCx negative. Debridement performed 08/09 for source control. Appreciate GenSurg input Continue abx per GenSurg pt transitioned to oral ABX now (2) Acute on chronic kidney failure: Qualifiers: Acute renal failure type: unspecified Code(s): N17.9 - Acute kidney failure, unspecified; N18.9 - Chronic kidney disease, unspecified Status: Acute Assessment and Plan: Patient has CKD and follows with nephrology. Her Cr mostly in the low 2 range. Cr was elevated to 3.1. Likely secondary to shock, sepsis, anemia. Renal US showing normal sized kidneys. watch kidney function (3) Gangrene of left foot: Code(s): I96 - Gangrene, not elsewhere classified Status: Acute Assessment and Plan: As above. Surgery consulted for debridement which occurred on 08/09 Venous doppler negative for DVT BRISA showing moderately decreased ABIs with the Right and Left both at 0.6 consistent with arterial occlusive disease. Continue current abx and dressing changes. Abx adjustment per GenSurg (4) Hypothyroidism: Onset Date: 06/2021 Code(s): E03.9 - Hypothyroidism, unspecified Status: Suspected Assessment and Plan: TSH 5.2 with FT4 elevated at 2.46. Either central hyperthyroidism, noncompliance with medications or more likely related to sepsis. Levothyroxine resumed. (5) Paroxysmal atrial fibrillation: Code(s): I48.0 - Paroxysmal atrial fibrillation Status: Acute Assessment and Plan: Tele showing paced rhythm. Not on anticoagulation but takes a full Aspirin and amiodarone Follow (6) Cardiomyopathy: Qualifiers: Cardiomyopathy type: ischemic Qualified Code(s): I25.5 - Ischemic cardiomyopathy Code(s): I42.9 - Cardiomyopathy, unspecified Status: Acute Assessment and Plan: Patient with known ischemic cardiomyopathy. Echo 03/20/24 showing normal LV chamber dimension with LV systolic function mildly reduced (EF 45-50%), an abnormal LV septal wall motion related to a post- operative state and trace mitral regurgitation. Hx of MV replacement and valve was well seated. Holding Entresto, Bumex and Metolazone due to septic shock. Was on Coreg 3.125mg BID but this has been discontinued earlier this year. Resume home meds when able order CXR today Pt needing oxygen sleep apnea ordered (7) Chronic obstructive pulmonary disease: Code(s): J44.9 - Chronic obstructive pulmonary disease, unspecified Status: Chronic Assessment and Plan: Scattered wheezes. P.r.n. bronchodilators available She was on Stiolto in March but stopped at discharge Will add scheduled Xopenex and Incruse (8) Bilateral lower extremity edema: Code(s): R60.0 - Localized edema Status: Acute Assessment and Plan: Secondary to congestive heart failure and CKD Lower extremity Dopplers negative for DVT Diuretics when able (9) Acute
--- NOTE | 2024-08-15 11:42 | PCNFU ---
Nutrition Follow-Up Complete: Increased Protein needs as related to wounds as evidenced by pressure ulcer reported. Goal:Adequate Intake of at least 75% of meals/supplements Pt meeting goal. continue with same goal Pt current nutrition is 2gm NA, ROBERT BID. Nutrition recommendation: continue with current plan of care Last recorded weight is 90.5 kg. Bowel Motility: +BM 08/15 Labs Reviewed: Hgb:7.5, HCT:23.5, NA:136, GFR:22, BUN:103, CR:2.2, Glu:132 Meds Noted: lovenox Skin: L heel unstageable Additional Notes: Pt continues on a low sodium diet, intake 50-100% of meals, ROBERT BID in place for wound healing. Pt to discharge today. RD will monitor weight, labs, skin, intake, meds every 7 days.
--- NOTE | 2024-08-15 12:50 | PM.PNGS ---
Progress Note: A&P Assessment and Plan (1) Ulcer of left heel: Code(s): L97.429 - Non-pressure chronic ulcer of left heel and midfoot with unspecified severity Status: Acute Assessment and Plan: Necrotic left heel ulcer healing well following surgical debridement and local wound care. Right lateral leg wound also healing well with enzymatic debridement. Okay from a surgical standpoint to discharge the patient with wound care instructions. Continue Santyl dressing changes. We will have her set up for follow-up with Dr. Sneed in the wound care clinic in 1 week to follow and plan for eventual graft. Plan I have discussed the patient's case and plan of care with Dr. Franco. Subjective Subjective Date/Time Seen: 08/15/24 12:50 Patient reports: no new complaints and afebrile Interval history: Patient seen today with Dr. Sneed for dressing change. No specific complaints at the time of our exam. She is planning to d/c home with home health and her is home to help take care of her. Exam Skin: Other: Right lateral leg wound healing well with loose necrotic tissue actually soft enough to be wiped away and majority of the wound bed pink and granulating. Left heel ulcer with about 70% of the wound bed pink tissue and 30% loose yellow/mendes exudate and possibly minimal slough. No purulent drainage. No bone exposed. Objective Data Vital Signs Vital Signs: Vital Signs - 24 hr 08/14/24 14:00 08/14/24 13:28 08/14/24 13:28 Temperature Pulse Rate 73 74 Respiratory Rate 20 Blood Pressure Pulse Oximetry 97 Oxygen Delivery Room Air Fraction of Inspired Oxygen 21 08/14/24 13:36 08/14/24 16:00 08/14/24 16:00 Temperature 97.6 F Pulse Rate 71 66 73 Respiratory Rate 20 20 Blood Pressure 120/52 L Pulse Oximetry 90 Oxygen Delivery Fraction of Inspired Oxygen 08/14/24 20:13 08/14/24 20:13 08/14/24 20:22 Temperature Pulse Rate 70 70 Respiratory Rate 20 20 Blood Pressure Pulse Oximetry 90 Oxygen Delivery Room Air Fraction of Inspired Oxygen 08/14/24 20:23 08/14/24 20:00 08/14/24 20:00 Temperature 98.6 F Pulse Rate 71 68 Respiratory Rate 20 Blood Pressure 146/60 H Pulse Oximetry 97 Oxygen Delivery Room Air Fraction of Inspired Oxygen 08/14/24 22:51 08/14/24 22:00 08/15/24 00:00 Temperature Pulse Rate 73 73 Respiratory Rate Blood Pressure Pulse Oximetry 90 Oxygen Delivery Fraction of Inspired Oxygen 08/15/24 00:00 08/15/24 00:00 08/15/24 02:00 Temperature 98.6 F Pulse Rate 70 72 Respiratory Rate 20 Blood Pressure 140/61 Pulse Oximetry 98 Oxygen Delivery Room Air Fraction of Inspired Oxygen 08/15/24 04:00 08/15/24 04:00 08/15/24 04:34 Temperature 98.6 F Pulse Rate 74 76 Respiratory Rate 20 Blood Pressure 145/61 H Pulse Oximetry 91 Oxygen Delivery Room Air Fraction of Inspired Oxygen 08/15/24 06:00 08/15/24 07:35 08/15/24 08:04 Temperature 97.5 F L Pulse Rate 73 71 Respiratory Rate 16 Blood Pressure 145/68 H Pulse Oximetry 92 91 Oxygen Delivery Room Air Fraction of Inspired Oxygen 08/15/24 08:04 08/15/24 08:13 08/15/24 09:22 Temperature Pulse Rate 72 73 73 Respiratory Rate 20 20 Blood Pressure Pulse Oximetry Oxygen Delivery Fraction of Inspired Oxygen 08/15/24 08:00 08/15/24 11:36 08/15/24 08:00 Temperature 97.9 F Pulse Rate 69 69 Respiratory Rate 16 Blood Pressure 127/78 Pulse Oximetry 95 Oxygen Delivery Room Air Fraction of Inspired Oxygen 08/15/24 10:00 Temperature Pulse Rate 78 Respiratory Rate Blood Pressure Pulse Oximetry Oxygen Delivery Fraction of Inspired Oxygen Intake/Output Intake/Output: Intake & Output 08/12/24 08/13/24 08/14/24 08/15/24 23:59 23:59 23:59 23:59 Intake Total 1520 1590 2135 700 Output Total 917 108 9338 450 Balance 1120 690 935 250 Meds/Res
--- NOTE | 2024-08-15 13:30 | HOMEO2EVAL ---
Evaluation was performed at [facility] Home Oxygen Evaluation RC: Home Oxygen (O2) Evaluation Start: 08/15/24 11:44 Freq: ONCE Status: Active Protocol: RPE Activity Type Activity Date Activity User E-sign Co-sign Detail Recorded Client Recorded Date Recorded By Document 08/15/24 12:30 DO [email or web address] 08/15/24 13:30 DO Document 08/15/24 12:35 DO [email or web address] 08/15/24 13:30 DO Document 08/15/24 12:40 DO [email or web address] 08/15/24 13:30 DO 08/15/24 08/15/24 08/15/24 12:30 12:35 12:40 Home O2 Evaluation [Oxygen] -Test Phase Resting Exercise Resting -Oxygen Delivery Room Air Room Air Room Air [Pulse Oximetry] -Pulse Oximetry (90-100 %) 94 95 94 [Pulse Rate] -Pulse Rate (60-100 beats/min) 69 80 70 [Comments] -Home Oxygen Evaluation Comments Pt non- ambulatory at this time due to non-weight bearing wound on left foot. Arm and leg movements performed in bed to simulate exertion. No home o2 needed at rest or exertion. [Charges] -Evaluation Charges O2 Evaluation by Pulmonary
--- NOTE | 2024-08-15 13:33 | PCRCNOTE ---
Home o2 set up with [facility], requested by . Nocturnally at 2 L.
== END 2024-08-15 14:21 | disposition home health service (06) | DRG 853 ==
LOC: ANHED 20:08 → ANHICU 20:41 → ANHIMU 08-12 18:42
PROVIDERS: Internal Medicine; Internal Medicine Nephrology; Physician Assistant; Surgery; Admitting Provider Internal Medicine; Emergency Provider Preventive Medicine Aerospace Medicine; PCP Family Medicine Adolescent Medicine; Visit Provider Family Medicine
PROC: 0JBR0ZZ Excision of Left Foot Subcutaneous Tissue and Fascia, Open Approach (ICD-10-PCS; principal; 2024-08-09 10:00)
DX: A41.9 Sepsis, unspecified organism (principal); L89.624 Pressure ulcer of left heel, stage 4; R65.21 Severe sepsis with septic shock; I13.0 Hypertensive heart and chronic kidney disease with heart failure and stage 1 through stage 4 chronic kidney disease, or unspecified chronic kidney disease; N17.9 Acute kidney failure, unspecified; I96 Gangrene, not elsewhere classified; I50.22 Chronic systolic (congestive) heart failure; N18.4 Chronic kidney disease, stage 4 (severe); D50.9 Iron deficiency anemia, unspecified; E78.5 Hyperlipidemia, unspecified; E03.9 Hypothyroidism, unspecified; F17.210 Nicotine dependence, cigarettes, uncomplicated; I48.0 Paroxysmal atrial fibrillation; I25.5 Ischemic cardiomyopathy; I25.2 Old myocardial infarction; I25.10 Atherosclerotic heart disease of native coronary artery without angina pectoris; J44.9 Chronic obstructive pulmonary disease, unspecified; M10.9 Gout, unspecified; Z66 Do not resuscitate; Z95.810 Presence of automatic (implantable) cardiac defibrillator; Z90.49 Acquired absence of other specified parts of digestive tract; Z95.5 Presence of coronary angioplasty implant and graft; Z95.2 Presence of prosthetic heart valve; Z95.1 Presence of aortocoronary bypass graft; Z79.82 Long term (current) use of aspirin; Z99.3 Dependence on wheelchair
CPT/HCPCS: 36415; 36430; 36556; 36600; 71045; 71046; 73590; 73700; 76775; 80048; 80053; 80069; 80202; 81001; 81050; 82550; 82570; 82607; 82728; 82746; 82805; 83036; 83540; 83550; 83605; 83735; 83880; 84100; 84145; 84156; 84300; 84439; 84443; 84540; 85014; 85018; 85025; 85027; 85610; 85652; 85730; 85999; 86140; 86850; 86870; 86880; 86900; 86901; 86902; 86922; 86971; 87040; 87086; 87641; 93306; 93922; 93970; 94618; 94640; 94762; 96361; 96365; 96366; 96367; 97110; 97162; 97165; 97530; 97535; 99285; A9270; C1751; G0378; J0692; J1100; J1650; J1720; J1756; J2003; J2185; J2371; J2405; J2470; J2704; J3010; J3370; J3475; J7030; J7040; J7050; J7120; P9016; P9047; Q5105

== ENCOUNTER 2024-08-25 16:06 | Inpatient (IN) | payer MEDICARE, SELFPAY ==
[2024-08-25] VITALS (41 sets, daily range): BP systolic 88–123; BP diastolic 30–90; PULSE 66–87; RESP 13–26; TEMP 36–36.9; O2SAT 96–100; BMI 33.3
--- NOTE | ~2024-08-25 | XR_ITS ---
EXAMINATION: XR chest 1V portable Exam Date/Time: 08/28/2024 17:04 CDT HISTORY: coarse lung sounds Comparison: 08/25/2024. RESULT: Lines, tubes, and devices: Left chest are clear. Pacemaker/AICD with intact leads. Intact sternotomy wires. Mediastinal surgical clips and ostial markers. Cardiac valve replacements. Atrial occlusion d evice. Lungs and pleura: Mild diffuse reticular opacities. Cardiomediastinal silhouette: Stable. Other: No acute osseous or upper abdominal finding. IMPRESSION: Mild interstitial edema. Reviewed, dictated and finalized at location K. IMPRESSION: Mild interstitial edema.
--- NOTE | ~2024-08-25 | XR_ITS ---
XR foot LT 2V DATE: 08/25/2024 18:11 INDICATION: Stage IV wound; evaluate for osteomyelitis TECHNIQUE: 2 views COMPARISON: None FINDINGS: There is a very large soft tissue ulcer at the posterior medial which may expose the shearer helper ior inferior aspect of the calcaneus. No obvious periosteal reaction or bone destruction is noted. Three-phase with a nuclide bone scan wou ld be more sensitive for detection of osteomyelitis. There is osteopenia. There is soft tissue swelling. On the AP view there is loss of definition of the bony trabecula at the lateral distal calcaneus and the proximal aspect of the lateral cuneiform bone. The overlying cortex is either very thin or not ap parent. However, on the lateral view the calcaneus and cuboid bone appear intact. No fracture, dislocation, periosteal reaction or bone destruction is evident otherwise. IMPRESSION: Very prominent soft tissue ulcer at the posterior heel, with suggestion of calcaneal expo sure Soft tissue swelling Prominent osteopenia; this may obscure fracture or bone destruction. If there is concern for osteomyelitis, consider three-phase radionuclide bone scan. Reviewed, dictated and finalized at location A. IMPRESSION: Very prominent soft tissue ulcer at the posterior heel, with sugges tion of calcaneal exposure Soft tissue swelling Prominent osteopenia; this may obscure fracture or bone destruction. If there is concern for osteomyelitis, consider three-phase radionuclide bone s can.
--- NOTE | ~2024-08-25 | CT_ITS ---
EXAMINATION:CT diagnostic chest wo con DATE: 08/29/2024 10:55 INDICATION: Pneumonia. TECHNIQUE: Computed tomography (CT) of the chest was performed without intravenous contrast. Automate d exposure control and iterative reconstruction technique were employed. The dose-length product (DLP ) was 603.89 mGy-cm. COMPARISON: Chest single view 08/28/2024 FINDINGS: Motion artifact is noted. There is mild atelectasis bilaterally. There are groundglass opac ities in right middle lobe and anterior segment right upper lobe. There are small pleural effusions. Cardiomegaly is noted. There are coronary artery calcifications. There is a left chest pacer with asia ds in region, right ventricle, and coronary sinus. There are changes of mitral and tricuspid valve re placements. There is a closure device at left atrial appendage. There are changes of coronary artery bypass grafting. No pericardial effusion. There is contrast in the gallbladder. There is mild thoraci c spondylosis. IMPRESSION: 1. Groundglass opacities in right middle lobe and anterior segment right upper lobe, consistent with mild pulmonary edema versus atypical pneumonia. 2. Small pleural effusions. Reviewed, dictated and finalized at location B.
--- NOTE | ~2024-08-25 | XR_ITS ---
XR chest 1V DATE: 08/25/2024 18:09 INDICATION: Cough, sepsis TECHNIQUE: Portable AP chest on 08/25/2024 at 1755 hours COMPARISON: 08/15/2024 portable AP chest at 0526 hours FINDINGS: Status post sternotomy, cardiac valve replacement, left atrial appendage closure device. Left triple lead transvenous pacemaker with leads overlying right atrium, right ventricle, coronary s inus. Cardiomegaly. Aortic calcification and unfolding. No hilar or mediastinal enlargement. There is mild pulmonary vascular congestion and redistribution. No pleural effusion is detected. IMPRESSION: Cardiomegaly, pulmonary vascular congestion and redistribution, consistent with mild vin estive heart failure, mildly improved since 08/15/2024 Aortic atherosclerosis Left triple lead pacemaker Postoperative changes Reviewed, dictated and finalized at location A. IMPRESSION: Cardiomegaly, pulmonary vascular congestion and redistribution, con sistent with mild congestive heart failure, mildly improved since 08/15/2024 Aortic atherosclerosis Left triple lead pacemaker Postoperative changes
--- NOTE | ~2024-08-25 | XR_ITS ---
XR chest 1V portable DATE: 09/01/2024 09:17 INDICATION: Congestive heart failure TECHNIQUE: Portable upright AP chest on 09/01/2024 at 0906 hours COMPARISON: 08/28/2024 portable AP chest 08/29/2024 CT chest FINDINGS: Cardiomegaly. Status post sternotomy and valve replacement. Left triple lead pacemaker device with leads in expected position overlying right atrium, right ventr icle and coronary sinus. Left atrial appendage closure device. Prominent aortic arch and descending thoracic aortic calcification and thoracic aortic unfolding. There is pulmonary vascular congestion and redistribution. There are Laina B lines consistent with p ulmonary interstitial edema. There are small pleural effusions. Diffuse osteopenia. IMPRESSION: Cardiomegaly, congestive heart failure and pulmonary interstitial edema, small pleural ef fusions mildly improved since 08/28/2024 Reviewed, dictated and finalized at location A. 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
--- NOTE | ~2024-08-25 | CT_ITS ---
EXAMINATION: CT brain wo con DATE: 08/25/2024 18:13 INDICATION: Rule out bleed TECHNIQUE: Computed tomography (CT) of the head was performed without intravenous contrast. The mA wa s adjusted according to patient size. Iterative reconstruction technique was employed. Exam dose: 60 5.33 mGy-cm total exam DLP. COMPARISON: 03/14/2008 CT brain FINDINGS: Prominent bilateral vertebral artery, basilar artery and bilateral carotid siphon internal carotid artery calcifications. There is nonspecific diminished attenuation the cerebral white matter, likely due to chronic small ve ssel ischemic changes. Small area of encephalomalacia in the right frontal lobe likely due to old infarct. No other cerebrov ascular accident is evident. No midline shift or mass effect. No intracranial mass lesion or hemorrhage, subdural or epidural hematoma. No fracture or bone destruction of the cranial vault. Small mucous retention cyst or polyp of the posterior right sphenoid sinus, minimal mucoperiosteal th ickening of the right maxillary sinus. The mastoid air cells are well-developed and aerated. IMPRESSION: Cerebral atherosclerosis and chronic small vessel ischemic changes of the cerebral white matter Small chronic right frontal probable cerebrovascular accident No acute intracranial finding or hemorrhage Reviewed, dictated and finalized at Location A. Reviewed, dictated and finalized at location A.
--- NOTE | ~2024-08-25 | XR_ITS ---
EXAMINATION: XR chest 1V portable Exam Date/Time: 08/28/2024 22:50 CDT HISTORY: heart rhythm Comparison: Same date at 5:13 PM. FINDINGS/IMPRESSION: Increasing, now moderate diffuse reticular opacities, likely representing modera te interstitial edema. No other interval change. Reviewed, dictated and finalized at location K.
--- NOTE | ~2024-08-25 | XR_ITS ---
XR tibia fibula RT 2V DATE: 08/25/2024 18:11 INDICATION: Left calf wound TECHNIQUE: AP and lateral views COMPARISON: None FINDINGS: Osteopenia. Soft tissue swelling. No fracture, dislocation, periosteal reaction or bone destruction of the tibia or fibula is evident. Femoral, popliteal and trifurcation artery calcifications. Surgical clips are noted along the medial aspect of the knee. IMPRESSION: Osteopenia Soft tissue swelling Arterial calcifications Reviewed, dictated and finalized at location A.
--- NOTE | 2024-08-25 16:36 | ECG_ITS ---
Test Date: 2024-08-25 16:52:40 Measurements Intervals [place] Rate: 78 P: 98 KS: 162 QRS: 16 QRSD: 125 T: 0 QT: 233 QTc: 266 Interpretive Statements ELECTRONIC VENTRICULAR PACEMAKER ABNORMAL RHYTHM ECG No previous ECG available for comparison Electronically Signed On 08-26-2024 10:51:53 CDT by Yash Nelson M.D.
--- NOTE | 2024-08-25 16:47 | ED.AMS ---
HPI - Altered Mental Status General Chief Complaint: Altered Mental Status <KAREN Barrios Last Filed: 08/26/24 02:22> Stated Complaint: AMS, lethargic <KAREN Barrios Last Filed: 08/26/24 02:22> Time Seen by Provider: 08/25/24 16:13 <KAREN Barrios Last Filed: 08/26/24 02:22> Source: patient <KAREN Barrios Last Filed: 08/26/24 02:22> Mode of arrival: ambulatory <KAREN Barrios Last Filed: 08/26/24 02:22> Limitations: no limitations <KAREN Barrios Last Filed: 08/26/24 02:22> History of Present Illness HPI narrative: This is a 74 year old female who presents to the ED via EMS from home for chief complaint of altered mental status. She resides there with her . EMS states that the patient has been laid up in bed for the past 2 days. has been struggling to take care of her with his own health issues. They report patient has wounds to the bilateral calves and heels that have been treated with wound care clinic. Patient is alert oriented times 2-3 but is not able to give a meaningful history. She is able to respond to her name, tell me her name, and her location. <KRAEN Barrios Last Filed: 08/26/24 02:22> Related Data Home Medications: Home Medications Medication Instructions Recorded Confirmed aspirin 325 mg tablet 325 mg PO DAILY 07/09/21 08/25/24 amiodarone 200 mg tablet (Pacerone) 200 mg PO DAILY 09/28/21 08/25/24 levothyroxine 75 mcg tablet 75 mcg PO DAILY 03/20/24 08/25/24 metolazone 2.5 mg tablet 2.5 mg PO DAILY 04/24/24 08/25/24 <KAREN Barrios Last Filed: 08/26/24 02:22> Allergies/Adverse Reactions: Allergies Allergy/AdvReac Type Severity Reaction Status Date / Time No Known Allergies Allergy Verified 08/25/24 17:12 <Tin Camejo PA-C - Last Filed: 08/26/24 02:22> Review of Systems Review of Systems: All systems as dictated in HPI <Tin Camejo PA-C - Last Filed: 08/26/24 02:22> [facility] Past Medical History Medical History: Medical History (Updated 08/30/24 @ 15:18 by Lester Gonzalez MD) Acute non-ST elevation myocardial infarction (NSTEMI) Anemia Aortic stenosis Atrial fibrillation with rapid ventricular response CAD (coronary artery disease) Cardiomyopathy Ejection fraction as low as 10 to 15%, EF was 36% after ICD insertion, with most recent EF July 2024 50-55% with hypokinesis basal inferior and inferior septum, right ventricular chamber mildly enlarged right ventricular systolic function reduced, mild aortic valve stenosis with peak velocity 222, me gradient 9 valve area 1.6 no stenosis of bioprosthetic mitral valve mild periventricular mitral valve regurgitation trace tricuspid valve regurgitation mild pulmonary hypertension RVSP of 48 Chronic kidney disease Chronic obstructive pulmonary disease Congestive heart failure Contraindication to anticoagulation therapy Secondary to GI bleed. Status post left atrial appendage ligation. Coronary artery disease Status post 2 vessel bypass. Depression GI bleed Gout History of placement of internal cardiac defibrillator Hyperlipidemia Kidney stones LBBB (left bundle branch block) Nephrolithiasis Nocturnal hypoxia Paroxysmal atrial fibrillation Psoriasis Subcapital fracture of right hip Tobacco dependence <Tin Camejo PA-C - Last Filed: 08/26/24 02:22> Surgical History Surgical History: Surgical History H/O two vessel coronary artery bypass graft (04/2021) History of appendectomy History of coronary artery stent placement History of hip surgery (08/2022) ORIF for fracture History of mitral valve replacement with bioprosthetic valve History of tricuspid valve repair History of tubal ligation History of two vessel coronary artery bypass graft Status post implantation of automatic cardioverter/defibrillator (AICD) Status post ligation of left atrial appendage <Tin Camejo PA-C - Last Filed: 08/26/24 02:22> Family History Family History: Family History Father Cancer Mother Acute myocardial infarction Congestive heart failure Son Diabetes mellitus Sibling Chronic obstructive pulmonary disease <Tin Camejo PA-C - Last Filed: 08/26/24 02:22> Social History Social History: Social History Social History: The patient lives with her and 1 of their sons in [place]. She has 2 other sons that live nearby. She smoked up to 3 packs of cigarettes a day at 1 time but she is down to about half a pack a day. She has smoked for 50 years. She denies alcohol and illicit substance use. Prior to COVID-19 the patient was working for the [employer]. Code status: DNR/DNI (patient voiced desire to change code status 02/2024) Surrogate decision maker: Adiel Rangel () Smoking packs per day: 1 Smoking cigarettes per day: 20.0 Years smoked: 50 Smoking pack-years: 50.00 Smoking status: Current every day smoker Tobacco type: cigarettes Second hand tobacco smoke exposure: Yes Alcohol intake: never Substance use: never Do You Feel Safe in your Home?: Yes Lack of Transportation: No Lack of Food: Never True Current Housing: I Have Housing Concerned About Future Housing: No Difficulty Paying Gas/Electric Bills: No Difficulty Paying for Meds: No Currently Unemployed: No Education: High School Diploma/GED Difficulty w/ Childcare or Family Care: No Living arrangements: with family Gender identity (if verbalized by the patient): Female Spiritual care concerns: No <Tin Camejo PA-C - Last Filed: 08/26/24 02:22> Exam Narrative: GENERAL: Well-appearing, well-nourished, and in no acute distress. HEAD: Normocephalic, atraumatic. EYES: PERRLA and EOMI. ENT: Nares clear, no rhinorrhea or epistaxis. Mucous membranes moist. Oropharynx without tonsillar hypertrophy exudate or other lesions. NECK: Supple. No adenopathy or masses. CHEST: No respiratory distress. Clear to auscultation. No wheezes rales or rhonchi HEART: Regular rate and rhythm. No murmur heard. Normal peripheral pulses. ABDOMEN: Soft, nontender, nondistended, normal active bowel sounds. MSK: Normal range of motion. No edema. Cap refill of the bilateral lower extremities intact. 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 Superficial yellow sloughing noted. Minimal purulent material. States 3 wound to the right calf approx 4 x 3 cm. Darker, necrotic appearing skin in the wound bed, but not in the surrounding skin. Stage 1-2 decubitus ulcers noted to the sacral, bilateral buttocks. NEURO: Alert and oriented x2. No focal deficits. Moving all extremities spontaneously. Able to follow basic commands. PSYCH: Normal mood and affect. : Done with female RN homeland security program specialist present There is some discharge present but certainly nothing copious. No retained products or foreign bodies <Tin Camejo PA-C - Last Filed: 08/26/24 02:22> Course Consultations Consultation #1: Spoke with Dr. Martínez (Ortho): I discussed my concerns with the x-rays regarding the left heel and the possibility for osteomyelitis. He is recommending that I consult General surgery but he does not see reason for the patient to not be admitted here from an osteo standpoint. <Tin Camejo PA-C - Last Filed: 08/26/24 02:22> Date: 08/25/24 <Tin Camejo PA-C - Last Filed: 08/26/24 02:22> Time: 19:00 <Tin Camejo PA-C - Last Filed: 08/26/24 02:22> Consultation #2: Spoke with Dr. Shankar (General Surgery): They will consult on the patient. Recommends admission to the hospitalist due to patient's comorbidities <Tin Camejo PA-C - Last Filed: 08/26/24 02:22> Date: 08/25/24 <KAREN Barrios Last Filed: 08/26/24 02:22> Time: 19:15 <KAREN Barrios Last Filed: 08/26/24 02:22> Vital Signs Vital signs: Vital Signs Temperature 98.4 F 08/25/24 16:05 Pulse Rate 83 08/25/24 16:05 Respiratory Rate 20 08/25/24 16:05 Blood Pressure 93/49 L 08/25/24 16:05 Pulse Oximetry 96 08/25/24 16:05 Oxygen Delivery Nasal Cannula 08/25/24 16:05 Oxygen Flow Rate 2 08/25/24 16:05 Temperature 97.2 F L 09/07/24 04:05 Pulse Rate 62 09/07/24 04:05 Respiratory Rate 28 H 09/07/24 04:05 Blood Pressure 120/52 L 09/06/24 14:00 Pulse Oximetry 93 09/07/24 04:05 Oxygen Delivery Nasal Cannula 09/06/24 20:00 Oxygen Flow Rate 3 09/06/24 20:00 Fraction of Inspired Oxygen 32 09/05/24 07:35 <Tin Camejo PA-C - Last Filed: 08/26/24 02:22> Vital Signs Temperature 98.4 F 08/25/24 16:05 Pulse Rate 83 08/25/24 16:05 Respiratory Rate 20 08/25/24 16:05 Blood Pressure 93/49 L 08/25/24 16:05 Pulse Oximetry 96 08/25/24 16:05 Oxygen Delivery Nasal Cannula 08/25/24 16:05 Oxygen Flow Rate 2 08/25/24 16:05 Temperature 97.2 F L 09/07/24 04:05 Pulse Rate 62 09/07/24 04:05 Respiratory Rate 28 H 09/07/24 04:05 Blood Pressure 120/52 L 09/06/24 14:00 Pulse Oximetry 93 09/07/24 04:05 Oxygen Delivery Nasal Cannula 09/06/24 20:00 Oxygen Flow Rate 3 09/06/24 20:00 Fraction of Inspired Oxygen 32 09/05/24 07:35 <Erick Vincent MD - Last Filed: 09/07/24 06:18> MDM - Altered Mental Status MDM Narrative Medical decision making narrative: This is a 74 yo female who presents to the ED for chief complaint of altered mental status. is bedside states the patient has been laid up in bed for 2 days. They are trying to manage bilateral lower extremity ulcers outpatient. Vitals show initial soft blood pressure of 93/49. She has a pacemaker in place with heart rate at 73. Afebrile. On 2 L nasal cannula baseline and saturating well. Exam shows patient is altered but able to follow commands. Protecting airway. There is a sloughing stage IV ulcer to the left heel with minimal surrounding skin breakdown. Lab work shows mildly elevated white count 12.3. Hemoglobin down to 8.1. ESR greater than 140 and CRP at 33.5. Significantly uremic with BUN of 151 and creatinine of 2.60. Last BUN of 100 and last creatinine of 2.20 indicating FRANK today. Suspect dehydration and sepsis at play. Lactic acid surprisingly normal and ABG unremarkable overall. No UTI on the UA Troponin elevated at 0.617. BNP >76084. Started on sepsis bolus fluids as well as broad-spectrum antibiotics for skin infection and infected wound. Suspicious of cardiorenal syndrome as a component of her presentation today. Last echo showed good EF so should be some room for the large volume fluid bolus for possible sepsis. Will back off of fluid administration at this point. Head CT does not show any acute bleed. Right Tib-fib x-ray shows osteopenia and soft tissue swelling but no gas tracking Left heel x-ray shows from a osteopenia, this may obscure fracture or bone destruction. There is suggestion calcaneal exposure due to the soft tissue ulcer at the posterior heel Chest x-ray: IMPRESSION: Cardiomegaly, pulmonary vascular congestion and redistribution, consistent with mild congestive heart failure, mildly improved since 08/15/2024 Aortic atherosclerosis Left triple lead pacemaker Postoperative changes . Unclear as to why patient remains with soft blood pressures throughout her visit today. Could be due to infection lower extremities vitals be more cardiogenic/renally induced. She is holding steady and averaging map of around 65 with the boluses of fluids. Remains afebrile and has a normal respiratory rate. Discussed the case with Dr. Yan (hosptialist) who recommends admission to the IMU. She will keep an eye on the blood pressures and return for central line. <Tin Camejo PA-C - Last Filed: 08/26/24 02:22> Lab Data Result diagrams: 09/06/24 06:42 09/06/24 06:42 <Tin Camejo PA-C - Last Filed: 08/26/24 02:22> Labs: Lab Results 08/25/24 08/25/24 08/25/24 Range/Units 16:38 16:38 16:38 WBC 12.3 H (4.5-10.0) K/mm3 RBC 3.21 L (4.2-5.4) M/mm3 Hgb 8.1 L (12.0-15.0) g/dL Hct 25.7 L (37.0-47.0) % MCV 80.1 (80-100) fl MCH 25.2 L (26-34) pg MCHC 31.5 L (32-36) g/dl RDW 19.0 H (11.5-14.5) % Plt Count 283 (150-375) k/mm3 MPV 11.3 H (7.4-10.4) fl Immature Gran % (Auto) 0.8 H (0-0.5) % Neut % (Auto) 91.7 H (45.5-73.1) % Lymph % (Auto) 2.8 L (18.3-44.2) % [place] % (Auto) 4.5 (2.6-8.5) % Eos % (Auto) 0.0 (0-4.4) % Baso % (Auto) 0.2 (0.2-1.2) % Lymph # (Auto) 0.34 L (0.9-3.2) K/mm3 [place] # (Auto) 0.6 (0.1-0.6) K/mm3 Eos # (Auto) 0.0 (0-0.3) K/mm3 Baso # (Auto) 0.0 (0.0-0.1) K/mm3 Abs Immat Gran (auto) 0.10 H (0.00-0.031) K/mm3 Absolute Neuts (auto) 11.3 H (1.3-6.7) K/mm3 Absolute Nucleated RBC 0.000 (0.0-0.012) K/mm3 Nucleated RBC % 0.0 (0.0-0.2) % ESR > 140 H (0-20) mm/hr PT 18.3 H (11.1-14.7) Seconds INR 1.5 APTT 37.0 H (22.3-36.8) Seconds Sodium Cancelled 142 Potassium Cancelled 2.5 L* Chloride Cancelled Carbon Dioxide Anion Gap BUN Creatinine Estim Creat Clear Calc Estimated GFR Glucose Lactic Acid (0.7-2.0) mmol/L Calcium Magnesium (1.6-2.3) mg/dL Total Bilirubin AST ALT Alkaline Phosphatase Total Creatine Kinase (30-135) U/L Troponin I (0.000-0.034) ng/mL C-Reactive Protein NT-Pro-B Natriuret Pep (19.9-100) pg/mL Total Protein Albumin Lipase (23-300) U/L Urine Color (Yellow) Urine Appearance (Clear) Urine pH (5.0-9.0) Ur Specific [place] (1.001-1.035) Urine Protein (Negative) mg/dL Urine Glucose (UA) (Negative) mg/dL Urine Ketones (Negative) mg/dL Ur Blood (Man) (Negative) Urine Nitrate (Negative) Urine Bilirubin (Negative) Urine Urobilinogen (<2.0) mg/dL Leukocyte Esterase Rfl (Negative) MARTINE/UL Urine RBC (0-2) /hpf Urine WBC (0-3) /hpf Ur Squamous Epith Cells (Few) /hpf Urine Bacteria /hpf Urine Casts Urine Yeast (Budding) (None) /hpf Nasal MRSA (PCR) (NOT DETECTE) Influenza A (RT-PCR) (Negative) Influenza B (RT-PCR) (Negative) RSV (RT-PCR) (Negative) SARS-CoV-2 RNA (RT-PCR) (Negative) 08/25/24 08/25/24 08/25/24 Range/Units 16:38 16:38 16:38 WBC (4.5-10.0) K/mm3 RBC (4.2-5.4) M/mm3 Hgb (12.0-15.0) g/dL Hct (37.0-47.0) % MCV (80-100) fl MCH (26-34) pg MCHC (32-36) g/dl RDW (11.5-14.5) % Plt Count (150-375) k/mm3 MPV (7.4-10.4) fl Immature Gran % (Auto) (0-0.5) % Neut % (Auto) (45.5-73.1) % Lymph % (Auto) (18.3-44.2) % [place] % (Auto) (2.6-8.5) % Eos % (Auto) (0-4.4) % Baso % (Auto) (0.2-1.2) % Lymph # (Auto) (0.9-3.2) K/mm3 [place] # (Auto) (0.1-0.6) K/mm3 Eos # (Auto) (0-0.3) K/mm3 Baso # (Auto) (0.0-0.1) K/mm3 Abs Immat Gran (auto) (0.00-0.031) K/mm3 Absolute Neuts (auto) (1.3-6.7) K/mm3 Absolute Nucleated RBC (0.0-0.012) K/mm3 Nucleated RBC % (0.0-0.2) % ESR (0-20) mm/hr PT (11.1-14.7) Seconds INR APTT (22.3-36.8) Seconds Sodium Potassium Chloride 96 L Carbon Dioxide Cancelled 33 H Anion Gap Cancelled 13 H BUN Cancelled Creatinine Estim Creat Clear Calc Estimated GFR Glucose Lactic Acid (0.7-2.0) mmol/L Calcium Magnesium (1.6-2.3) mg/dL Total Bilirubin AST ALT Alkaline Phosphatase Total Creatine Kinase (30-135) U/L Troponin I (0.000-0.034) ng/mL C-Reactive Protein NT-Pro-B Natriuret Pep (19.9-100) pg/mL Total Protein Albumin Lipase (23-300) U/L Urine Color (Yellow) Urine Appearance (Clear) Urine pH (5.0-9.0) Ur Specific [place] (1.001-1.035) Urine Protein (Negative) mg/dL Urine Glucose (UA) (Negative) mg/dL Urine Ketones (Negative) mg/dL Ur Blood (Man) (Negative) Urine Nitrate (Negative) Urine Bilirubin (Negative) Urine Urobilinogen (<2.0) mg/dL Leukocyte Esterase Rfl (Negative) MARTINE/UL Urine RBC (0-2) /hpf Urine WBC (0-3) /hpf Ur Squamous Epith Cells (Few) /hpf Urine Bacteria /hpf Urine Casts Urine Yeast (Budding) (None) /hpf Nasal MRSA (PCR) (NOT DETECTE) Influenza A (RT-PCR) (Negative) Influenza B (RT-PCR) (Negative) RSV (RT-PCR) (Negative) SARS-CoV-2 RNA (RT-PCR) (Negative) 08/25/24 08/25/24 08/25/24 Range/Units 16:38 16:38 16:38 WBC (4.5-10.0) K/mm3 RBC (4.2-5.4) M/mm3 Hgb (12.0-15.0) g/dL Hct (37.0-47.0) % MCV (80-100) fl MCH (26-34) pg MCHC (32-36) g/dl RDW (11.5-14.5) % Plt Count (150-375) k/mm3 MPV (7.4-10.4) fl Immature Gran % (Auto) (0-0.5) % Neut % (Auto) (45.5-73.1) % Lymph % (Auto) (18.3-44.2) % [place] % (Auto) (2.6-8.5) % Eos % (Auto) (0-4.4) % Baso % (Auto) (0.2-1.2) % Lymph # (Auto) (0.9-3.2) K/mm3 [place] # (Auto) (0.1-0.6) K/mm3 Eos # (Auto) (0-0.3) K/mm3 Baso # (Auto) (0.0-0.1) K/mm3 Abs Immat Gran (auto) (0.00-0.031) K/mm3 Absolute Neuts (auto) (1.3-6.7) K/mm3 Absolute Nucleated RBC (0.0-0.012) K/mm3 Nucleated RBC % (0.0-0.2) % ESR (0-20) mm/hr PT (11.1-14.7) Seconds INR APTT (22.3-36.8) Seconds Sodium Potassium Chloride Carbon Dioxide Anion Gap BUN 151 H D Creatinine Cancelled 2.60 H Estim Creat Clear Calc Cancelled 17 Estimated GFR Cancelled Glucose Lactic Acid (0.7-2.0) mmol/L Calcium Magnesium (1.6-2.3) mg/dL Total Bilirubin AST ALT Alkaline Phosphatase Total Creatine Kinase (30-135) U/L Troponin I (0.000-0.034) ng/mL C-Reactive Protein NT-Pro-B Natriuret Pep (19.9-100) pg/mL Total Protein Albumin Lipase (23-300) U/L Urine Color (Yellow) Urine Appearance (Clear) Urine pH (5.0-9.0) Ur Specific [place] (1.001-1.035) Urine Protein (Negative) mg/dL Urine Glucose (UA) (Negative) mg/dL Urine Ketones (Negative) mg/dL Ur Blood (Man) (Negative) Urine Nitrate (Negative) Urine Bilirubin (Negative) Urine Urobilinogen (<2.0) mg/dL Leukocyte Esterase Rfl (Negative) MARTINE/UL Urine RBC (0-2) /hpf Urine WBC (0-3) /hpf Ur Squamous Epith Cells (Few) /hpf Urine Bacteria /hpf Urine Casts Urine Yeast (Budding) (None) /hpf Nasal MRSA (PCR) (NOT DETECTE) Influenza A (RT-PCR) (Negative) Influenza B (RT-PCR) (Negative) RSV (RT-PCR) (Negative) SARS-CoV-2 RNA (RT-PCR) (Negative) 08/25/24 08/25/24 08/25/24 Range/Units 16:38 16:38 16:38 WBC (4.5-10.0) K/mm3 RBC (4.2-5.4) M/mm3 Hgb (12.0-15.0) g/dL Hct (37.0-47.0) % MCV (80-100) fl MCH (26-34) pg MCHC (32-36) g/dl RDW (11.5-14.5) % Plt Count (150-375) k/mm3 MPV (7.4-10.4) fl Immature Gran % (Auto) (0-0.5) % Neut % (Auto) (45.5-73.1) % Lymph % (Auto) (18.3-44.2) % [place] % (Auto) (2.6-8.5) % Eos % (Auto) (0-4.4) % Baso % (Auto) (0.2-1.2) % Lymph # (Auto) (0.9-3.2) K/mm3 [place] # (Auto) (0.1-0.6) K/mm3 Eos # (Auto) (0-0.3) K/mm3 Baso # (Auto) (0.0-0.1) K/mm3 Abs Immat Gran (auto) (0.00-0.031) K/mm3 Absolute Neuts (auto) (1.3-6.7) K/mm3 Absolute Nucleated RBC (0.0-0.012) K/mm3 Nucleated RBC % (0.0-0.2) % ESR (0-20) mm/hr PT (11.1-14.7) Seconds INR APTT (22.3-36.8) Seconds Sodium Potassium Chloride Carbon Dioxide Anion Gap BUN Creatinine Estim Creat Clear Calc Estimated GFR 18 L Glucose Cancelled 164 H Lactic Acid 1.4 (0.7-2.0) mmol/L Calcium Cancelled 8.4 Magnesium (1.6-2.3) mg/dL Total Bilirubin Cancelled AST ALT Alkaline Phosphatase Total Creatine Kinase (30-135) U/L Troponin I (0.000-0.034) ng/mL C-Reactive Protein NT-Pro-B Natriuret Pep (19.9-100) pg/mL Total Protein Albumin Lipase (23-300) U/L Urine Color (Yellow) Urine Appearance (Clear) Urine pH (5.0-9.0) Ur Specific [place] (1.001-1.035) Urine Protein (Negative) mg/dL Urine Glucose (UA) (Negative) mg/dL Urine Ketones (Negative) mg/dL Ur Blood (Man) (Negative) Urine Nitrate (Negative) Urine Bilirubin (Negative) Urine Urobilinogen (<2.0) mg/dL Leukocyte Esterase Rfl (Negative) MARTINE/UL Urine RBC (0-2) /hpf Urine WBC (0-3) /hpf Ur Squamous Epith Cells (Few) /hpf Urine Bacteria /hpf Urine Casts Urine Yeast (Budding) (None) /hpf Nasal MRSA (PCR) (NOT DETECTE) Influenza A (RT-PCR) (Negative) Influenza B (RT-PCR) (Negative) RSV (RT-PCR) (Negative) SARS-CoV-2 RNA (RT-PCR) (Negative) 08/25/24 08/25/24 08/25/24 Range/Units 16:38 16:38 16:38 WBC (4.5-10.0) K/mm3 RBC (4.2-5.4) M/mm3 Hgb (12.0-15.0) g/dL Hct (37.0-47.0) % MCV (80-100) fl MCH (26-34) pg MCHC (32-36) g/dl RDW (11.5-14.5) % Plt Count (150-375) k/mm3 MPV (7.4-10.4) fl Immature Gran % (Auto) (0-0.5) % Neut % (Auto) (45.5-73.1) % Lymph % (Auto) (18.3-44.2) % [place] % (Auto) (2.6-8.5) % Eos % (Auto) (0-4.4) % Baso % (Auto) (0.2-1.2) % Lymph # (Auto) (0.9-3.2) K/mm3 [place] # (Auto) (0.1-0.6) K/mm3 Eos # (Auto) (0-0.3) K/mm3 Baso # (Auto) (0.0-0.1) K/mm3 Abs Immat Gran (auto) (0.00-0.031) K/mm3 Absolute Neuts (auto) (1.3-6.7) K/mm3 Absolute Nucleated RBC (0.0-0.012) K/mm3 Nucleated RBC % (0.0-0.2) % ESR (0-20) mm/hr PT (11.1-14.7) Seconds INR APTT (22.3-36.8) Seconds Sodium Potassium Chloride Carbon Dioxide Anion Gap BUN Creatinine Estim Creat Clear Calc Estimated GFR Glucose Lactic Acid (0.7-2.0) mmol/L Calcium Magnesium (1.6-2.3) mg/dL Total Bilirubin 1.1 AST Cancelled 22 ALT Cancelled 16 Alkaline Phosphatase Cancelled Total Creatine Kinase (30-135) U/L Troponin I (0.000-0.034) ng/mL C-Reactive Protein NT-Pro-B Natriuret Pep (19.9-100) pg/mL Total Protein Albumin Lipase (23-300) U/L Urine Color (Yellow) Urine Appearance (Clear) Urine pH (5.0-9.0) Ur Specific [place] (1.001-1.035) Urine Protein (Negative) mg/dL Urine Glucose (UA) (Negative) mg/dL Urine Ketones (Negative) mg/dL Ur Blood (Man) (Negative) Urine Nitrate (Negative) Urine Bilirubin (Negative) Urine Urobilinogen (<2.0) mg/dL Leukocyte Esterase Rfl (Negative) MARTINE/UL Urine RBC (0-2) /hpf Urine WBC (0-3) /hpf Ur Squamous Epith Cells (Few) /hpf Urine Bacteria /hpf Urine Casts Urine Yeast (Budding) (None) /hpf Nasal MRSA (PCR) (NOT DETECTE) Influenza A (RT-PCR) (Negative) Influenza B (RT-PCR) (Negative) RSV (RT-PCR) (Negative) SARS-CoV-2 RNA (RT-PCR) (Negative) 08/25/24 08/25/24 08/25/24 Range/Units 16:38 16:38 16:38 WBC (4.5-10.0) K/mm3 RBC (4.2-5.4) M/mm3 Hgb (12.0-15.0) g/dL Hct (37.0-47.0) % MCV (80-100) fl MCH (26-34) pg MCHC (32-36) g/dl RDW (11.5-14.5) % Plt Count (150-375) k/mm3 MPV (7.4-10.4) fl Immature Gran % (Auto) (0-0.5) % Neut % (Auto) (45.5-73.1) % Lymph % (Auto) (18.3-44.2) % [place] % (Auto) (2.6-8.5) % Eos % (Auto) (0-4.4) % Baso % (Auto) (0.2-1.2) % Lymph # (Auto) (0.9-3.2) K/mm3 [place] # (Auto) (0.1-0.6) K/mm3 Eos # (Auto) (0-0.3) K/mm3 Baso # (Auto) (0.0-0.1) K/mm3 Abs Immat Gran (auto) (0.00-0.031) K/mm3 Absolute Neuts (auto) (1.3-6.7) K/mm3 Absolute Nucleated RBC (0.0-0.012) K/mm3 Nucleated RBC % (0.0-0.2) % ESR (0-20) mm/hr PT (11.1-14.7) Seconds INR APTT (22.3-36.8) Seconds Sodium Potassium Chloride Carbon Dioxide Anion Gap BUN Creatinine Estim Creat Clear Calc Estimated GFR Glucose Lactic Acid (0.7-2.0) mmol/L Calcium Magnesium (1.6-2.3) mg/dL Total Bilirubin AST ALT Alkaline Phosphatase 75 Total Creatine Kinase 66 (30-135) U/L Troponin I 0.617 H* (0.000-0.034) ng/mL C-Reactive Protein Cancelled 33.5 H NT-Pro-B Natriuret Pep > 38510 H (19.9-100) pg/mL Total Protein Cancelled 7.0 Albumin Cancelled Lipase (23-300) U/L Urine Color (Yellow) Urine Appearance (Clear) Urine pH (5.0-9.0) Ur Specific [place] (1.001-1.035) Urine Protein (Negative) mg/dL Urine Glucose (UA) (Negative) mg/dL Urine Ketones (Negative) mg/dL Ur Blood (Man) (Negative) Urine Nitrate (Negative) Urine Bilirubin (Negative) Urine Urobilinogen (<2.0) mg/dL Leukocyte Esterase Rfl (Negative) MARTINE/UL Urine RBC (0-2) /hpf Urine WBC (0-3) /hpf Ur Squamous Epith Cells (Few) /hpf Urine Bacteria /hpf Urine Casts Urine Yeast (Budding) (None) /hpf Nasal MRSA (PCR) (NOT DETECTE) Influenza A (RT-PCR) (Negative) Influenza B (RT-PCR) (Negative) RSV (RT-PCR) (Negative) SARS-CoV-2 RNA (RT-PCR) (Negative) 08/25/24 08/25/24 08/25/24 Range/Units 16:38 17:43 19:56 WBC (4.5-10.0) K/mm3 RBC (4.2-5.4) M/mm3 Hgb (12.0-15.0) g/dL Hct (37.0-47.0) % MCV (80-100) fl MCH (26-34) pg MCHC (32-36) g/dl RDW (11.5-14.5) % Plt Count (150-375) k/mm3 MPV (7.4-10.4) fl Immature Gran % (Auto) (0-0.5) % Neut % (Auto) (45.5-73.1) % Lymph % (Auto) (18.3-44.2) % [place] % (Auto) (2.6-8.5) % Eos % (Auto) (0-4.4) % Baso % (Auto) (0.2-1.2) % Lymph # (Auto) (0.9-3.2) K/mm3 [place] # (Auto) (0.1-0.6) K/mm3 Eos # (Auto) (0-0.3) K/mm3 Baso # (Auto) (0.0-0.1) K/mm3 Abs Immat Gran (auto) (0.00-0.031) K/mm3 Absolute Neuts (auto) (1.3-6.7) K/mm3 Absolute Nucleated RBC (0.0-0.012) K/mm3 Nucleated RBC % (0.0-0.2) % ESR (0-20) mm/hr PT (11.1-14.7) Seconds INR APTT (22.3-36.8) Seconds Sodium Potassium Chloride Carbon Dioxide Anion Gap BUN Creatinine Estim Creat Clear Calc Estimated GFR Glucose Lactic Acid (0.7-2.0) mmol/L Calcium Magnesium (1.6-2.3) mg/dL Total Bilirubin AST ALT Alkaline Phosphatase Total Creatine Kinase (30-135) U/L Troponin I (0.000-0.034) ng/mL C-Reactive Protein NT-Pro-B Natriuret Pep (19.9-100) pg/mL Total Protein Albumin 3.1 L Lipase 19 L (23-300) U/L Urine Color Yellow (Yellow) Urine Appearance Cloudy H (Clear) Urine pH 5.0 (5.0-9.0) Ur Specific [place] 1.013 (1.001-1.035) Urine Protein 1+ H (Negative) mg/dL Urine Glucose (UA) Negative (Negative) mg/dL Urine Ketones Negative (Negative) mg/dL Ur Blood (Man) Negative (Negative) Urine Nitrate Negative (Negative) Urine Bilirubin Negative (Negative) Urine Urobilinogen 0.2 (<2.0) mg/dL Leukocyte Esterase Rfl Negative (Negative) MARTINE/UL Urine RBC 21-50 H (0-2) /hpf Urine WBC 0-5 (0-3) /hpf Ur Squamous Epith Cells Few (Few) /hpf Urine Bacteria None seen /hpf Urine Casts >20 Urine Yeast (Budding) Present H (None) /hpf Nasal MRSA (PCR) Not detected (NOT DETECTE) Influenza A (RT-PCR) Negative (Negative) Influenza B (RT-PCR) Negative (Negative) RSV (RT-PCR) Negative (Negative) SARS-CoV-2 RNA (RT-PCR) Negative (Negative) 08/25/24 Range/Units 21:07 WBC (4.5-10.0) K/mm3 RBC (4.2-5.4) M/mm3 Hgb (12.0-15.0) g/dL Hct (37.0-47.0) % MCV (80-100) fl MCH (26-34) pg MCHC (32-36) g/dl RDW (11.5-14.5) % Plt Count (150-375) k/mm3 MPV (7.4-10.4) fl Immature Gran % (Auto) (0-0.5) % Neut % (Auto) (45.5-73.1) % Lymph % (Auto) (18.3-44.2) % [place] % (Auto) (2.6-8.5) % Eos % (Auto) (0-4.4) % Baso % (Auto) (0.2-1.2) % Lymph # (Auto) (0.9-3.2) K/mm3 [place] # (Auto) (0.1-0.6) K/mm3 Eos # (Auto) (0-0.3) K/mm3 Baso # (Auto) (0.0-0.1) K/mm3 Abs Immat Gran (auto) (0.00-0.031) K/mm3 Absolute Neuts (auto) (1.3-6.7) K/mm3 Absolute Nucleated RBC (0.0-0.012) K/mm3 Nucleated RBC % (0.0-0.2) % ESR (0-20) mm/hr PT (11.1-14.7) Seconds INR APTT (22.3-36.8) Seconds Sodium Potassium Chloride Carbon Dioxide Anion Gap BUN Creatinine Estim Creat Clear Calc Estimated GFR Glucose Lactic Acid (0.7-2.0) mmol/L Calcium Magnesium 1.7 (1.6-2.3) mg/dL Total Bilirubin AST ALT Alkaline Phosphatase Total Creatine Kinase (30-135) U/L Troponin I 0.633 H* (0.000-0.034) ng/mL C-Reactive Protein NT-Pro-B Natriuret Pep (19.9-100) pg/mL Total Protein Albumin Lipase (23-300) U/L Urine Color (Yellow) Urine Appearance (Clear) Urine pH (5.0-9.0) Ur Specific [place] (1.001-1.035) Urine Protein (Negative) mg/dL Urine Glucose (UA) (Negative) mg/dL Urine Ketones (Negative) mg/dL Ur Blood (Man) (Negative) Urine Nitrate (Negative) Urine Bilirubin (Negative) Urine Urobilinogen (<2.0) mg/dL Leukocyte Esterase Rfl (Negative) MARTINE/UL Urine RBC (0-2) /hpf Urine WBC (0-3) /hpf Ur Squamous Epith Cells (Few) /hpf Urine Bacteria /hpf Urine Casts Urine Yeast (Budding) (None) /hpf Nasal MRSA (PCR) (NOT DETECTE) Influenza A (RT-PCR) (Negative) Influenza B (RT-PCR) (Negative) RSV (RT-PCR) (Negative) SARS-CoV-2 RNA (RT-PCR) (Negative) <Tin Camejo PA-C - Last Filed: 08/26/24 02:22> Lab Results 08/25/24 08/25/24 08/25/24 Range/Units 16:38 16:38 16:38 WBC 12.3 H (4.5-10.0) K/mm3 RBC 3.21 L (4.2-5.4) M/mm3 Hgb 8.1 L (12.0-15.0) g/dL Hct 25.7 L (37.0-47.0) % MCV 80.1 (80-100) fl MCH 25.2 L (26-34) pg MCHC 31.5 L (32-36) g/dl RDW 19.0 H (11.5-14.5) % Plt Count 283 (150-375) k/mm3 MPV 11.3 H (7.4-10.4) fl Immature Gran % (Auto) 0.8 H (0-0.5) % Neut % (Auto) 91.7 H (45.5-73.1) % Lymph % (Auto) 2.8 L (18.3-44.2) % [place] % (Auto) 4.5 (2.6-8.5) % Eos % (Auto) 0.0 (0-4.4) % Baso % (Auto) 0.2 (0.2-1.2) % Lymph # (Auto) 0.34 L (0.9-3.2) K/mm3 [place] # (Auto) 0.6 (0.1-0.6) K/mm3 Eos # (Auto) 0.0 (0-0.3) K/mm3 Baso # (Auto) 0.0 (0.0-0.1) K/mm3 Abs Immat Gran (auto) 0.10 H (0.00-0.031) K/mm3 Absolute Neuts (auto) 11.3 H (1.3-6.7) K/mm3 Absolute Nucleated RBC 0.000 (0.0-0.012) K/mm3 Nucleated RBC % 0.0 (0.0-0.2) % ESR > 140 H (0-20) mm/hr PT 18.3 H (11.1-14.7) Seconds INR 1.5 APTT 37.0 H (22.3-36.8) Seconds Sodium Cancelled 142 Potassium Cancelled 2.5 L* Chloride Cancelled Carbon Dioxide Anion Gap BUN Creatinine Estim Creat Clear Calc Estimated GFR Glucose Lactic Acid (0.7-2.0) mmol/L Calcium Magnesium (1.6-2.3) mg/dL Total Bilirubin AST ALT Alkaline Phosphatase Total Creatine Kinase (30-135) U/L Troponin I (0.000-0.034) ng/mL C-Reactive Protein NT-Pro-B Natriuret Pep (19.9-100) pg/mL Total Protein Albumin Lipase (23-300) U/L Urine Color (Yellow) Urine Appearance (Clear) Urine pH (5.0-9.0) Ur Specific [place] (1.001-1.035) Urine Protein (Negative) mg/dL Urine Glucose (UA) (Negative) mg/dL Urine Ketones (Negative) mg/dL Ur Blood (Man) (Negative) Urine Nitrate (Negative) Urine Bilirubin (Negative) Urine Urobilinogen (<2.0) mg/dL Leukocyte Esterase Rfl (Negative) MARTINE/UL Urine RBC (0-2) /hpf Urine WBC (0-3) /hpf Ur Squamous Epith Cells (Few) /hpf Urine Bacteria /hpf Urine Casts Urine Yeast (Budding) (None) /hpf Nasal MRSA (PCR) (NOT DETECTE) Influenza A (RT-PCR) (Negative) Influenza B (RT-PCR) (Negative) RSV (RT-PCR) (Negative) SARS-CoV-2 RNA (RT-PCR) (Negative) 08/25/24 08/25/24 08/25/24 Range/Units 16:38 16:38 16:38 WBC (4.5-10.0) K/mm3 RBC (4.2-5.4) M/mm3 Hgb (12.0-15.0) g/dL Hct (37.0-47.0) % MCV (80-100) fl MCH (26-34) pg MCHC (32-36) g/dl RDW (11.5-14.5) % Plt Count (150-375) k/mm3 MPV (7.4-10.4) fl Immature Gran % (Auto) (0-0.5) % Neut % (Auto) (45.5-73.1) % Lymph % (Auto) (18.3-44.2) % [place] % (Auto) (2.6-8.5) % Eos % (Auto) (0-4.4) % Baso % (Auto) (0.2-1.2) % Lymph # (Auto) (0.9-3.2) K/mm3 [place] # (Auto) (0.1-0.6) K/mm3 Eos # (Auto) (0-0.3) K/mm3 Baso # (Auto) (0.0-0.1) K/mm3 Abs Immat Gran (auto) (0.00-0.031) K/mm3 Absolute Neuts (auto) (1.3-6.7) K/mm3 Absolute Nucleated RBC (0.0-0.012) K/mm3 Nucleated RBC % (0.0-0.2) % ESR (0-20) mm/hr PT (11.1-14.7) Seconds INR APTT (22.3-36.8) Seconds Sodium Potassium Chloride 96 L Carbon Dioxide Cancelled 33 H Anion Gap Cancelled 13 H BUN Cancelled Creatinine Estim Creat Clear Calc Estimated GFR Glucose Lactic Acid (0.7-2.0) mmol/L Calcium Magnesium (1.6-2.3) mg/dL Total Bilirubin AST ALT Alkaline Phosphatase Total Creatine Kinase (30-135) U/L Troponin I (0.000-0.034) ng/mL C-Reactive Protein NT-Pro-B Natriuret Pep (19.9-100) pg/mL Total Protein Albumin Lipase (23-300) U/L Urine Color (Yellow) Urine Appearance (Clear) Urine pH (5.0-9.0) Ur Specific [place] (1.001-1.035) Urine Protein (Negative) mg/dL Urine Glucose (UA) (Negative) mg/dL Urine Ketones (Negative) mg/dL Ur Blood (Man) (Negative) Urine Nitrate (Negative) Urine Bilirubin (Negative) Urine Urobilinogen (<2.0) mg/dL Leukocyte Esterase Rfl (Negative) MARTINE/UL Urine RBC (0-2) /hpf Urine WBC (0-3) /hpf Ur Squamous Epith Cells (Few) /hpf Urine Bacteria /hpf Urine Casts Urine Yeast (Budding) (None) /hpf Nasal MRSA (PCR) (NOT DETECTE) Influenza A (RT-PCR) (Negative) Influenza B (RT-PCR) (Negative) RSV (RT-PCR) (Negative) SARS-CoV-2 RNA (RT-PCR) (Negative) 08/25/24 08/25/24 08/25/24 Range/Units 16:38 16:38 16:38 WBC (4.5-10.0) K/mm3 RBC (4.2-5.4) M/mm3 Hgb (12.0-15.0) g/dL Hct (37.0-47.0) % MCV (80-100) fl MCH (26-34) pg MCHC (32-36) g/dl RDW (11.5-14.5) % Plt Count (150-375) k/mm3 MPV (7.4-10.4) fl Immature Gran % (Auto) (0-0.5) % Neut % (Auto) (45.5-73.1) % Lymph % (Auto) (18.3-44.2) % [place] % (Auto) (2.6-8.5) % Eos % (Auto) (0-4.4) % Baso % (Auto) (0.2-1.2) % Lymph # (Auto) (0.9-3.2) K/mm3 [place] # (Auto) (0.1-0.6) K/mm3 Eos # (Auto) (0-0.3) K/mm3 Baso # (Auto) (0.0-0.1) K/mm3 Abs Immat Gran (auto) (0.00-0.031) K/mm3 Absolute Neuts (auto) (1.3-6.7) K/mm3 Absolute Nucleated RBC (0.0-0.012) K/mm3 Nucleated RBC % (0.0-0.2) % ESR (0-20) mm/hr PT (11.1-14.7) Seconds INR APTT (22.3-36.8) Seconds Sodium Potassium Chloride Carbon Dioxide Anion Gap BUN 151 H D Creatinine Cancelled 2.60 H Estim Creat Clear Calc Cancelled 17 Estimated GFR Cancelled Glucose Lactic Acid (0.7-2.0) mmol/L Calcium Magnesium (1.6-2.3) mg/dL Total Bilirubin AST ALT Alkaline Phosphatase Total Creatine Kinase (30-135) U/L Troponin I (0.000-0.034) ng/mL C-Reactive Protein NT-Pro-B Natriuret Pep (19.9-100) pg/mL Total Protein Albumin Lipase (23-300) U/L Urine Color (Yellow) Urine Appearance (Clear) Urine pH (5.0-9.0) Ur Specific [place] (1.001-1.035) Urine Protein (Negative) mg/dL Urine Glucose (UA) (Negative) mg/dL Urine Ketones (Negative) mg/dL Ur Blood (Man) (Negative) Urine Nitrate (Negative) Urine Bilirubin (Negative) Urine Urobilinogen (<2.0) mg/dL Leukocyte Esterase Rfl (Negative) MARTINE/UL Urine RBC (0-2) /hpf Urine WBC (0-3) /hpf Ur Squamous Epith Cells (Few) /hpf Urine Bacteria /hpf Urine Casts Urine Yeast (Budding) (None) /hpf Nasal MRSA (PCR) (NOT DETECTE) Influenza A (RT-PCR) (Negative) Influenza B (RT-PCR) (Negative) RSV (RT-PCR) (Negative) SARS-CoV-2 RNA (RT-PCR) (Negative) 08/25/24 08/25/24 08/25/24 Range/Units 16:38 16:38 16:38 WBC (4.5-10.0) K/mm3 RBC (4.2-5.4) M/mm3 Hgb (12.0-15.0) g/dL Hct (37.0-47.0) % MCV (80-100) fl MCH (26-34) pg MCHC (32-36) g/dl RDW (11.5-14.5) % Plt Count (150-375) k/mm3 MPV (7.4-10.4) fl Immature Gran % (Auto) (0-0.5) % Neut % (Auto) (45.5-73.1) % Lymph % (Auto) (18.3-44.2) % [place] % (Auto) (2.6-8.5) % Eos % (Auto) (0-4.4) % Baso % (Auto) (0.2-1.2) % Lymph # (Auto) (0.9-3.2) K/mm3 [place] # (Auto) (0.1-0.6) K/mm3 Eos # (Auto) (0-0.3) K/mm3 Baso # (Auto) (0.0-0.1) K/mm3 Abs Immat Gran (auto) (0.00-0.031) K/mm3 Absolute Neuts (auto) (1.3-6.7) K/mm3 Absolute Nucleated RBC (0.0-0.012) K/mm3 Nucleated RBC % (0.0-0.2) % ESR (0-20) mm/hr PT (11.1-14.7) Seconds INR APTT (22.3-36.8) Seconds Sodium Potassium Chloride Carbon Dioxide Anion Gap BUN Creatinine Estim Creat Clear Calc Estimated GFR 18 L Glucose Cancelled 164 H Lactic Acid 1.4 (0.7-2.0) mmol/L Calcium Cancelled 8.4 Magnesium (1.6-2.3) mg/dL Total Bilirubin Cancelled AST ALT Alkaline Phosphatase Total Creatine Kinase (30-135) U/L Troponin I (0.000-0.034) ng/mL C-Reactive Protein NT-Pro-B Natriuret Pep (19.9-100) pg/mL Total Protein Albumin Lipase (23-300) U/L Urine Color (Yellow) Urine Appearance (Clear) Urine pH (5.0-9.0) Ur Specific [place] (1.001-1.035) Urine Protein (Negative) mg/dL Urine Glucose (UA) (Negative) mg/dL Urine Ketones (Negative) mg/dL Ur Blood (Man) (Negative) Urine Nitrate (Negative) Urine Bilirubin (Negative) Urine Urobilinogen (<2.0) mg/dL Leukocyte Esterase Rfl (Negative) MARTINE/UL Urine RBC (0-2) /hpf Urine WBC (0-3) /hpf Ur Squamous Epith Cells (Few) /hpf Urine Bacteria /hpf Urine Casts Urine Yeast (Budding) (None) /hpf Nasal MRSA (PCR) (NOT DETECTE) Influenza A (RT-PCR) (Negative) Influenza B (RT-PCR) (Negative) RSV (RT-PCR) (Negative) SARS-CoV-2 RNA (RT-PCR) (Negative) 08/25/24 08/25/24 08/25/24 Range/Units 16:38 16:38 16:38 WBC (4.5-10.0) K/mm3 RBC (4.2-5.4) M/mm3 Hgb (12.0-15.0) g/dL Hct (37.0-47.0) % MCV (80-100) fl MCH (26-34) pg MCHC (32-36) g/dl RDW (11.5-14.5) % Plt Count (150-375) k/mm3 MPV (7.4-10.4) fl Immature Gran % (Auto) (0-0.5) % Neut % (Auto) (45.5-73.1) % Lymph % (Auto) (18.3-44.2) % [place] % (Auto) (2.6-8.5) % Eos % (Auto) (0-4.4) % Baso % (Auto) (0.2-1.2) % Lymph # (Auto) (0.9-3.2) K/mm3 [place] # (Auto) (0.1-0.6) K/mm3 Eos # (Auto) (0-0.3) K/mm3 Baso # (Auto) (0.0-0.1) K/mm3 Abs Immat Gran (auto) (0.00-0.031) K/mm3 Absolute Neuts (auto) (1.3-6.7) K/mm3 Absolute Nucleated RBC (0.0-0.012) K/mm3 Nucleated RBC % (0.0-0.2) % ESR (0-20) mm/hr PT (11.1-14.7) Seconds INR APTT (22.3-36.8) Seconds Sodium Potassium Chloride Carbon Dioxide Anion Gap BUN Creatinine Estim Creat Clear Calc Estimated GFR Glucose Lactic Acid (0.7-2.0) mmol/L Calcium Magnesium (1.6-2.3) mg/dL Total Bilirubin 1.1 AST Cancelled 22 ALT Cancelled 16 Alkaline Phosphatase Cancelled Total Creatine Kinase (30-135) U/L Troponin I (0.000-0.034) ng/mL C-Reactive Protein NT-Pro-B Natriuret Pep (19.9-100) pg/mL Total Protein Albumin Lipase (23-300) U/L Urine Color (Yellow) Urine Appearance (Clear) Urine pH (5.0-9.0) Ur Specific [place] (1.001-1.035) Urine Protein (Negative) mg/dL Urine Glucose (UA) (Negative) mg/dL Urine Ketones (Negative) mg/dL Ur Blood (Man) (Negative) Urine Nitrate (Negative) Urine Bilirubin (Negative) Urine Urobilinogen (<2.0) mg/dL Leukocyte Esterase Rfl (Negative) MARTINE/UL Urine RBC (0-2) /hpf Urine WBC (0-3) /hpf Ur Squamous Epith Cells (Few) /hpf Urine Bacteria /hpf Urine Casts Urine Yeast (Budding) (None) /hpf Nasal MRSA (PCR) (NOT DETECTE) Influenza A (RT-PCR) (Negative) Influenza B (RT-PCR) (Negative) RSV (RT-PCR) (Negative) SARS-CoV-2 RNA (RT-PCR) (Negative) 08/25/24 08/25/24 08/25/24 Range/Units 16:38 16:38 16:38 WBC (4.5-10.0) K/mm3 RBC (4.2-5.4) M/mm3 Hgb (12.0-15.0) g/dL Hct (37.0-47.0) % MCV (80-100) fl MCH (26-34) pg MCHC (32-36) g/dl RDW (11.5-14.5) % Plt Count (150-375) k/mm3 MPV (7.4-10.4) fl Immature Gran % (Auto) (0-0.5) % Neut % (Auto) (45.5-73.1) % Lymph % (Auto) (18.3-44.2) % [place] % (Auto) (2.6-8.5) % Eos % (Auto) (0-4.4) % Baso % (Auto) (0.2-1.2) % Lymph # (Auto) (0.9-3.2) K/mm3 [place] # (Auto) (0.1-0.6) K/mm3 Eos # (Auto) (0-0.3) K/mm3 Baso # (Auto) (0.0-0.1) K/mm3 Abs Immat Gran (auto) (0.00-0.031) K/mm3 Absolute Neuts (auto) (1.3-6.7) K/mm3 Absolute Nucleated RBC (0.0-0.012) K/mm3 Nucleated RBC % (0.0-0.2) % ESR (0-20) mm/hr PT (11.1-14.7) Seconds INR APTT (22.3-36.8) Seconds Sodium Potassium Chloride Carbon Dioxide Anion Gap BUN Creatinine Estim Creat Clear Calc Estimated GFR Glucose Lactic Acid (0.7-2.0) mmol/L Calcium Magnesium (1.6-2.3) mg/dL Total Bilirubin AST ALT Alkaline Phosphatase 75 Total Creatine Kinase 66 (30-135) U/L Troponin I 0.617 H* (0.000-0.034) ng/mL C-Reactive Protein Cancelled 33.5 H NT-Pro-B Natriuret Pep > 98759 H (19.9-100) pg/mL Total Protein Cancelled 7.0 Albumin Cancelled Lipase (23-300) U/L Urine Color (Yellow) Urine Appearance (Clear) Urine pH (5.0-9.0) Ur Specific [place] (1.001-1.035) Urine Protein (Negative) mg/dL Urine Glucose (UA) (Negative) mg/dL Urine Ketones (Negative) mg/dL Ur Blood (Man) (Negative) Urine Nitrate (Negative) Urine Bilirubin (Negative) Urine Urobilinogen (<2.0) mg/dL Leukocyte Esterase Rfl (Negative) MARTINE/UL Urine RBC (0-2) /hpf Urine WBC (0-3) /hpf Ur Squamous Epith Cells (Few) /hpf Urine Bacteria /hpf Urine Casts Urine Yeast (Budding) (None) /hpf Nasal MRSA (PCR) (NOT DETECTE) Influenza A (RT-PCR) (Negative) Influenza B (RT-PCR) (Negative) RSV (RT-PCR) (Negative) SARS-CoV-2 RNA (RT-PCR) (Negative) 08/25/24 08/25/24 08/25/24 Range/Units 16:38 17:43 19:56 WBC (4.5-10.0) K/mm3 RBC (4.2-5.4) M/mm3 Hgb (12.0-15.0) g/dL Hct (37.0-47.0) % MCV (80-100) fl MCH (26-34) pg MCHC (32-36) g/dl RDW (11.5-14.5) % Plt Count (150-375) k/mm3 MPV (7.4-10.4) fl Immature Gran % (Auto) (0-0.5) % Neut % (Auto) (45.5-73.1) % Lymph % (Auto) (18.3-44.2) % [place] % (Auto) (2.6-8.5) % Eos % (Auto) (0-4.4) % Baso % (Auto) (0.2-1.2) % Lymph # (Auto) (0.9-3.2) K/mm3 [place] # (Auto) (0.1-0.6) K/mm3 Eos # (Auto) (0-0.3) K/mm3 Baso # (Auto) (0.0-0.1) K/mm3 Abs Immat Gran (auto) (0.00-0.031) K/mm3 Absolute Neuts (auto) (1.3-6.7) K/mm3 Absolute Nucleated RBC (0.0-0.012) K/mm3 Nucleated RBC % (0.0-0.2) % ESR (0-20) mm/hr PT (11.1-14.7) Seconds INR APTT (22.3-36.8) Seconds Sodium Potassium Chloride Carbon Dioxide Anion Gap BUN Creatinine Estim Creat Clear Calc Estimated GFR Glucose Lactic Acid (0.7-2.0) mmol/L Calcium Magnesium (1.6-2.3) mg/dL Total Bilirubin AST ALT Alkaline Phosphatase Total Creatine Kinase (30-135) U/L Troponin I (0.000-0.034) ng/mL C-Reactive Protein NT-Pro-B Natriuret Pep (19.9-100) pg/mL Total Protein Albumin 3.1 L Lipase 19 L (23-300) U/L Urine Color Yellow (Yellow) Urine Appearance Cloudy H (Clear) Urine pH 5.0 (5.0-9.0) Ur Specific [place] 1.013 (1.001-1.035) Urine Protein 1+ H (Negative) mg/dL Urine Glucose (UA) Negative (Negative) mg/dL Urine Ketones Negative (Negative) mg/dL Ur Blood (Man) Negative (Negative) Urine Nitrate Negative (Negative) Urine Bilirubin Negative (Negative) Urine Urobilinogen 0.2 (<2.0) mg/dL Leukocyte Esterase Rfl Negative (Negative) MARTINE/UL Urine RBC 21-50 H (0-2) /hpf Urine WBC 0-5 (0-3) /hpf Ur Squamous Epith Cells Few (Few) /hpf Urine Bacteria None seen /hpf Urine Casts >20 Urine Yeast (Budding) Present H (None) /hpf Nasal MRSA (PCR) Not detected (NOT DETECTE) Influenza A (RT-PCR) Negative (Negative) Influenza B (RT-PCR) Negative (Negative) RSV (RT-PCR) Negative (Negative) SARS-CoV-2 RNA (RT-PCR) Negative (Negative) 08/25/24 Range/Units 21:07 WBC (4.5-10.0) K/mm3 RBC (4.2-5.4) M/mm3 Hgb (12.0-15.0) g/dL Hct (37.0-47.0) % MCV (80-100) fl MCH (26-34) pg MCHC (32-36) g/dl RDW (11.5-14.5) % Plt Count (150-375) k/mm3 MPV (7.4-10.4) fl Immature Gran % (Auto) (0-0.5) % Neut % (Auto) (45.5-73.1) % Lymph % (Auto) (18.3-44.2) % [place] % (Auto) (2.6-8.5) % Eos % (Auto) (0-4.4) % Baso % (Auto) (0.2-1.2) % Lymph # (Auto) (0.9-3.2) K/mm3 [place] # (Auto) (0.1-0.6) K/mm3 Eos # (Auto) (0-0.3) K/mm3 Baso # (Auto) (0.0-0.1) K/mm3 Abs Immat Gran (auto) (0.00-0.031) K/mm3 Absolute Neuts (auto) (1.3-6.7) K/mm3 Absolute Nucleated RBC (0.0-0.012) K/mm3 Nucleated RBC % (0.0-0.2) % ESR (0-20) mm/hr PT (11.1-14.7) Seconds INR APTT (22.3-36.8) Seconds Sodium Potassium Chloride Carbon Dioxide Anion Gap BUN Creatinine Estim Creat Clear Calc Estimated GFR Glucose Lactic Acid (0.7-2.0) mmol/L Calcium Magnesium 1.7 (1.6-2.3) mg/dL Total Bilirubin AST ALT Alkaline Phosphatase Total Creatine Kinase (30-135) U/L Troponin I 0.633 H* (0.000-0.034) ng/mL C-Reactive Protein NT-Pro-B Natriuret Pep (19.9-100) pg/mL Total Protein Albumin Lipase (23-300) U/L Urine Color (Yellow) Urine Appearance (Clear) Urine pH (5.0-9.0) Ur Specific [place] (1.001-1.035) Urine Protein (Negative) mg/dL Urine Glucose (UA) (Negative) mg/dL Urine Ketones (Negative) mg/dL Ur Blood (Man) (Negative) Urine Nitrate (Negative) Urine Bilirubin (Negative) Urine Urobilinogen (<2.0) mg/dL Leukocyte Esterase Rfl (Negative) MARTINE/UL Urine RBC (0-2) /hpf Urine WBC (0-3) /hpf Ur Squamous Epith Cells (Few) /hpf Urine Bacteria /hpf Urine Casts Urine Yeast (Budding) (None) /hpf Nasal MRSA (PCR) (NOT DETECTE) Influenza A (RT-PCR) (Negative) Influenza B (RT-PCR) (Negative) RSV (RT-PCR) (Negative) SARS-CoV-2 RNA (RT-PCR) (Negative) <Erick Vincent MD - Last Filed: 09/07/24 06:18> ABG Data ABG results: 08/25/24 17:06 Puncture Site Right radial ABG pH 7.446 ABG pCO2 46.3 H ABG pO2 100.8 H ABG PO2/FiO2 Ratio 4.20 ABG HCO3 31.2 H ABG O2 Saturation 97.8 ABG O2 Content 10.9 L ABG Base Excess 6.4 A-a Gradient 15.2 Oxyhemoglobin 95.0 Total Hemoglobin 8.0 L O2 Delivery Device Nasal cannula O2 Liters/Min 1.0 FiO2 24 <Tin Camejo PA-C - Last Filed: 08/26/24 02:22> 08/25/24 17:06 Puncture Site Right radial ABG pH 7.446 ABG pCO2 46.3 H ABG pO2 100.8 H ABG PO2/FiO2 Ratio 4.20 ABG HCO3 31.2 H ABG O2 Saturation 97.8 ABG O2 Content 10.9 L ABG Base Excess 6.4 A-a Gradient 15.2 Oxyhemoglobin 95.0 Total Hemoglobin 8.0 L O2 Delivery Device Nasal cannula O2 Liters/Min 1.0 FiO2 24 <Erick Vincent MD - Last Filed: 09/07/24 06:18> Discharge Plan Discharge Clinical Impression: Altered mental status, FRANK (acute kidney injury), Ulcer of left heel Decubitus ulcer of sacral area Qualifiers: Pressure injury stage: unspecified pressure injury stage Qualified Code(s): L89.159 - Pressure ulcer of sacral region, unspecified stage <Tin Camejo PA-C - Last Filed: 08/26/24 02:22> Patient Disposition: Still a Patient <Tin Camejo PA-C - Last Filed: 08/26/24 02:22> Condition: Guarded Prognosis <Tin Camejo PA-C - Last Filed: 08/26/24 02:22> Attestation Supervising Provider Attestation This visit was performed by both a physician and an APC (DWIGHT Camejo). I performed all aspects of the MDM as documented. <Erick Vincent MD - Last Filed: 09/07/24 06:18>
[2024-08-25] MEDS: LACTATED RINGERS 1,000 ML 999 ML IV CONT ×2 (16:50)
[2024-08-25 16:51] LABS: Basophils Percent Auto 0.2 % (0.2-1.2); Hematocrit 25.7 % (37.0-47.0); Hemoglobin 8.1 g/dL (12.0-15.0); Immature Granulocyte Percent A 0.8 % (0-0.5); Lymphocytes Absolute Auto 0.34 K/mm3 (0.9-3.2); Lymphocytes Percent Auto 2.8 % (18.3-44.2); Mean Corpuscular HGB Conc 31.5 g/dl (32-36); Mean Corpuscular Hemoglobin 25.2 pg (26-34); Mean Corpuscular Volume 80.1 fl (80-100); Mean Platelet Volume 11.3 fl (7.4-10.4); Monocytes Absolute Auto 0.6 K/mm3 (0.1-0.6); Monocytes Percent Auto 4.5 % (2.6-8.5); Neutrophils Absolute Auto 11.3 K/mm3 (1.3-6.7); Neutrophils Percent Auto 91.7 % (45.5-73.1); Platelet Count Result 283 k/mm3 (150-375); Red Blood Count 3.21 M/mm3 (4.2-5.4); White Blood Count 12.3 K/mm3 (4.5-10.0)
--- NOTE | 2024-08-25 16:58 | PC.NURSE ---
at bedside. patient has skin breakdown on her bottom and between her thighs with excoriation. patient also has a wound on her left heel and right calf that patient's states she has been seeing wound care for. wet to dry dressing placed on both wounds per verbal order from Tin.
[2024-08-25 17:02] LABS: INR 1.5; Lactic Acid Reflex 1.4 mmol/L (0.7-2.0); Prothrombin Time 18.3 Seconds (11.1-14.7)
[2024-08-25 17:09] LABS: Alanine Aminotransferase 16 U/L (6-35); Albumin Level 3.1 g/dL (3.5-5.1); Alkaline Phosphatase 75 U/L (38-126); Anion Gap 13 mmol/L (4-12); Aspartate Amino Transferase 22 U/L (14-36); Bilirubin,Total 1.1 mg/dL (0.2-1.3); Calcium 8.4 mg/dL (8.4-10.2); Carbon Dioxide 33 mmol/L (22-30); Chloride 96 mmol/L (98-107); Estimated CRCL calculation 17 ml/min; Estimated Glomerular Filt Rate 18; Glucose 164 mg/dL (65-110); Lipase 19 U/L (23-300); Potassium 2.5 mmol/L (3.4-5.0); Sodium 142 mmol/L (137-145)
[2024-08-25 17:11] LABS: Alveolar/Arterial O2 Gradient 15.2 mmHg; Base Excess ABG 6.4 mEq/l (+/-2.0); Fractional Inspired Oxygen 24 %; HCO3 ABG 31.2 mEq/l (22.0-26.0); Oxygen Content ABG 10.9 %vol (16.0-22.0); Oxygen Saturation ABG 97.8 % (95.0-100.0); PCO2 ABG 46.3 mmHg (35.0-45.0); PO2 ABG 100.8 mmHg (80.0-100.0); pH ABG 7.446 (7.350-7.450)
[2024-08-25 17:12] LABS: Device NASAL CANNULA; Modified Allen's Test Pass; Site Drawn RIGHT RADIAL
[2024-08-25 17:13] LABS: Add Urine Microscopic? YES; Appearance Urine Cloudy (Clear); Bacteria Urine None Seen /hpf; Bilirubin Urine Negative (Negative); Blood Urine Negative (Negative); Budding Yeast Urine Present /hpf; Color Urine Yellow (Yellow); Glucose Urine UA Negative (Negative); Ketones Urine Negative (Negative); Leukocyte Esterase Ur Negative LEU/UL (Negative); Nitrate Urine Negative (Negative); Non Pathogenic Casts >20; Protein Urine 1+ mg/dL (Negative); RBC Urine 21-50 /hpf (0-2); Specific Grav Ur 1.013 (1.001-1.035); Squamous Epithelial Cell Urine Few /hpf (Few); Urobilinogen Urine 0.2 mg/dL (<2.0); WBC Urine 0-5 /hpf (0-3)
[2024-08-25 17:14] LABS: Blood Urea Nitrogen 151 mg/dL (7-17)
[2024-08-25 17:18] LABS: Troponin I 0.617 ng/mL (0.000-0.034)
[2024-08-25 17:35] LABS: CRP 33.5 mg/dL (<1.0)
[2024-08-25] MEDS: CEFEPIME 2 GM/NS 50 ML 2 GM/50 ML BAG IVPB (17:36)
[2024-08-25] MEDS: KCL 20 MEQ/SW 100 ML 100 ML 50 MEQ IVPB (17:39)
[2024-08-25 18:04] LABS: Erythrocyte Sedimentation Rate > 140 mm/hr (0-20)
[2024-08-25] MEDS: metroNIDAZOLE 500 MG/ISO 100ML 500 MG/100 ML BAG 100 MG IVPB (18:37)
[2024-08-25 19:01] LABS: MRSA (PCR) NOT DETECTED (NOT DETECTE)
[2024-08-25 19:15] LABS: NT Pro B Type Natriuretic Pept > 30000 pg/mL (19.9-100)
[2024-08-25] MEDS: VANCOMYCIN 1,250 MG/NS 250 ML 1,250 MG/250 ML BAG 166.67 MG IVPB (19:24)
--- NOTE | 2024-08-25 19:24 | PC.NURSE ---
Report received from VIVIAN Leyva.Assumed care of patient at this time.
[2024-08-25] MEDS: SODIUM CHLORIDE 0.9% IV 500 ML 999 ML IV CONT (19:25)
[2024-08-25 19:33] LABS: Creatine Kinase 66 U/L (30-135)
[2024-08-25 20:41] LABS: Influenza A QL RT-PCR Negative (Negative); Influenza B QL RT-PCR Negative (Negative); RSV RNA, RT-PCR Negative (Negative); SARS-CoV-2 RNA PCR Negative (Negative)
--- NOTE | 2024-08-25 20:53 | P.HP_ITS ---
H&P: HPI History of Present Illness Date/Time: 08/25/24 20:53 Chief Complaint: Not able to get out of bed since Monday Narrative: 74-year-old female with a past medical history of coronary artery disease status post 2 vessel CABG, chronic kidney disease stage 4, paroxysmal atrial fibrillation status ligation of left atrial appendage, mitral valve regurgitation with mitral valve replacement, tricuspid valve repair, severe cardiomyopathy with pacemaker/ICD, most recent EF up 55, COPD with continued tobacco use, and recent admission for septic shock requiring central line placement 08/07/2024 through 08/15/2024 who returns to the hospital from home via EMS due to altered mental status and unable to get out of bed for 2 days. On arrival to the hospital the patient was hypotensive with systolic blood pres sures in the mid 80s to low 90s. Patient appeared overtly dry with dry cracked peeling lips. The patient is alert oriented to person, place and year but confused as to the month. She denied having any pain, nausea, vomiting or diarrhea. She reported that she would move her legs if they would ?moved the pedals out of her way?. The patient reported that she would eat something if somebody would have brought her food at home. At the time my evaluation the patient's blood pressures had improved after she received a total of 30 mL/kilos fluid bolus. Her blood pressures did get into the low 100s systolic. She does take midodrine at home on a t.i.d. basis. It is unclear if she was able to take her midodrine today. She was afebrile on presentation to the hospital. Review of Systems Review of Systems: ROS unobtainable: Yes unobtainable due to mental status [facility] Past Medical History Medical History (Updated 08/26/24 @ 02:45 by Brynn Yan, ) Acute non-ST elevation myocardial infarction (NSTEMI) Anemia Aortic stenosis Atrial fibrillation with rapid ventricular response CAD (coronary artery disease) Cardiomyopathy Ejection fraction as low as 10 to 15%, EF was 36% after ICD insertion, with most recent EF July 2024 50-55% with hypokinesis basal inferior and inferior septum, right ventricular chamber mildly enlarged right ventricular systolic function reduced, mild aortic valve stenosis with peak velocity 222, me gradient 9 valve area 1.6 no stenosis of bioprosthetic mitral valve mild periventricular mitral valve regurgitation trace tricuspid valve regurgitation mild pulmonary hypertension RVSP of 48 Chronic kidney disease Chronic obstructive pulmonary disease Congestive heart failure Contraindication to anticoagulation therapy Secondary to GI bleed. Status post left atrial appendage ligation. Coronary artery disease Status post 2 vessel bypass. Depression GI bleed Gout History of placement of internal cardiac defibrillator Hyperlipidemia Kidney stones LBBB (left bundle branch block) Nephrolithiasis Nocturnal hypoxia Paroxysmal atrial fibrillation Psoriasis Subcapital fracture of right hip Tobacco dependence Surgical History Surgical History (Updated 08/26/24 @ 02:00 by Brynn Yan DO) H/O two vessel coronary artery bypass graft (04/2021) History of appendectomy History of coronary artery stent placement History of hip surgery (08/2022) ORIF for fracture History of mitral valve replacement with bioprosthetic valve History of tricuspid valve repair History of tubal ligation History of two vessel coronary artery bypass graft Status post implantation of automatic cardioverter/defibrillator (AICD) Status post ligation of left atrial appendage Family History Family History Father Cancer Mother Acute myocardial infarction Congestive heart failure Son Diabetes mellitus Sibling Chronic obstructive pulmonary disease Social History Social History (Updated 08/26/24 @ 01:48 by Brynn Yan DO) Social History: The patient lives with her and 1 of their sons in [place]. She has 2 other sons that live nearby. She smoked up to 3 packs of cigarettes a day at 1 time but she is down to about half a pack a day. She has smoked for 50 years. She denies alcohol and illicit substance use. Prior to COVID-19 the patient was working for the [employer]. Code status: DNR/DNI (patient voiced desire to change code status 02/2024) Surrogate decision maker: Adiel Rangel () Smoking packs per day: 1 Smoking cigarettes per day: 20.0 Years smoked: 50 Smoking pack-years: 50.00 Smoking status: Current every day smoker Tobacco type: cigarettes Second hand tobacco smoke exposure: Yes Alcohol intake: never Substance use: never Do You Feel Safe in your Home?: Yes Lack of Transportation: No Lack of Food: Never True Current Housing: I Have Housing Concerned About Future Housing: No Difficulty Paying Gas/Electric Bills: No Difficulty Paying for Meds: No Currently Unemployed: No Education: High School Diploma/GED Difficulty w/ Childcare or Family Care: No Living arrangements: with family Gender identity (if verbalized by the patient): Female Spiritual care concerns: No Meds Home Medications and Allergies Home Medications Medication Instructions Recorded Confirmed Type aspirin 325 mg tablet 325 mg PO DAILY 07/09/21 08/25/24 History amiodarone 200 mg tablet (Pacerone) 200 mg PO DAILY 09/28/21 08/25/24 History albuterol sulfate 90 mcg/actuation 2 inh inhalation Q4H PRN shortness 02/08/24 08/25/24 Rx aerosol inhaler of breath or wheezing #8.5 grams levothyroxine 75 mcg tablet 75 mcg PO DAILY 03/20/24 08/25/24 History bumetanide 1 mg tablet 2 mg PO DAILY #60 tabs 03/29/24 08/25/24 Rx sacubitril 49 mg-valsartan 51 mg 0.5 tablet PO Q12HR #30 tabs 04/10/24 08/25/24 Rx tablet (Entresto) metolazone 2.5 mg tablet 2.5 mg PO DAILY 04/24/24 08/25/24 History allopurinol 100 mg tablet 50 mg PO Q48H #30 tabs 05/29/24 08/25/24 Rx gabapentin 100 mg capsule 200 mg PO BID #120 caps 07/17/24 08/25/24 Rx amoxicillin 500 mg-potassium 1 tablet PO Q12HR #20 tabs 08/15/24 08/25/24 Rx clavulanate 125 mg tablet (Augmentin) doxycycline hyclate 100 mg tablet 100 mg PO Q12HR #20 tabs 08/15/24 08/25/24 Rx ferrous sulfate 325 mg (65 mg 325 mg PO BID #60 tabs 08/15/24 08/25/24 Rx iron) tablet midodrine 10 mg tablet 10 mg PO TID #90 tabs 08/15/24 08/25/24 Rx umeclidinium 62.5 mcg/actuation 1 inh inhalation DAILYRT #30 ea 08/15/24 08/25/24 Rx blister powder for inhalation (Incruse Ellipta) Allergies Allergy/AdvReac Type Severity Reaction Status Date / Time No Known Allergies Allergy Verified 08/25/24 17:12 Vital Signs Vital Signs - 24 hr 08/25/24 16:05 08/25/24 16:21 08/25/24 16:32 Temperature 98.4 F Pulse Rate 83 87 82 Respiratory Rate 20 21 H 24 H Blood Pressure 93/49 L 93/49 L 94/55 L Pulse Oximetry 96 98 100 Oxygen Delivery Nasal Cannula Oxygen Flow Rate 2 08/25/24 16:47 08/25/24 17:00 08/25/24 17:02 Temperature Pulse Rate 80 77 84 Respiratory Rate 20 15 24 H Blood Pressure 103/42 L 100/48 L Pulse Oximetry 100 Oxygen Delivery Oxygen Flow Rate 08/25/24 17:15 08/25/24 17:30 08/25/24 17:32 Temperature Pulse Rate 75 74 74 Respiratory Rate 20 18 18 Blood Pressure 99/45 L Pulse Oximetry 100 99 100 Oxygen Delivery Oxygen Flow Rate 08/25/24 17:45 08/25/24 17:47 08/25/24 18:15 Temperature Pulse Rate 74 74 74 Respiratory Rate 15 18 18 Blood Pressure 94/30 L Pulse Oximetry 100 Oxygen Delivery Oxygen Flow Rate 08/25/24 18:30 08/25/24 18:31 08/25/24 18:47 Temperature Pulse Rate 73 73 73 Respiratory Rate 19 19 19 Blood Pressure 99/51 L 89/71 L Pulse Oximetry 100 100 100 Oxygen Delivery Oxygen Flow Rate 08/25/24 18:48 08/25/24 19:00 08/25/24 19:02 Temperature Pulse Rate 73 73 73 Respiratory Rate 18 25 H 22 H Blood Pressure 88/72 L Pulse Oximetry 100 Oxygen Delivery Oxygen Flow Rate 08/25/24 19:15 08/25/24 19:17 08/25/24 19:30 Temperature Pulse Rate 73 74 73 Respiratory Rate 17 26 H 22 H Blood Pressure 90/50 L Pulse Oximetry 100 100 98 Oxygen Delivery Oxygen Flow Rate 08/25/24 19:45 08/25/24 19:46 Temperature 97.9 F Pulse Rate 73 73 Respiratory Rate 18 20 Blood Pressure 93/81 L Pulse Oximetry 100 100 Oxygen Delivery Oxygen Flow Rate Exam Narrative: Weight 82.6 kg BMI 33.3 Const: Other: Acutely ill-appearing, obese, appears older than stated age HENMT: Other: Head is normocephalic atraumatic, lips are dry with peeling skin the, mucous membranes are dry, fair dentition but exam limited as the patient only minimally opens her mouth Eyes: Other: Pupils are equal and reactive, marked conjunctival pallor, no scleral icterus Neck: Other: No obvious JVD, large neck circumference, supple Resp: Other: Mild tachypnea, accessory muscle use, decreased breath sounds bilaterally most notably at the bases Cardio: Other: Regular rate, regular rhythm, systolic murmur noted, 1+ bilateral radial and pedal pulses GI: Other: Obese, soft, nontender : Other: Melchor catheter in place with 250 mL of dark yellow urine Urinary Catheter: Urinary Catheter: patent and draining, urine clear and urine dark Skin: Other: Generalized pallor, warm to touch, chronic skin changes to lower extremities Neuro: Other: Patient is alert oriented to person, place and year, she is confused as to time and thought the month was August already she is a poor historian regarding recent events and why she was brought to the hospital, speech is slow and clear but only answering in 1-2 word intervals, patient has 5/5 strength on the left overhead worker and 3/5 strength on the right, patient was unable to pull her feet away from noxious stimuli Extrem: Other: Patient has chronic wounds 1 of the posterior right lower calf with a slightly larger base than previous but base appears clean no evidence of surrounding erythema (please see nursing documentation for imaging), and black eschar on the left heel dry, no drainage, no surrounding erythema, 1+ pretibial edema bilateral Psych: Other: Arouses to verbal stimuli but somewhat somnolent, disheveled appearance, flat affect, cooperative H&P: Results Labs Labs: Laboratory Tests 08/25/24 16:38 08/25/24 16:38 08/25/24 08/25/24 08/25/24 16:38 16:38 16:38 WBC 12.3 H RBC 3.21 L Hgb 8.1 L Hct 25.7 L MCV 80.1 MCH 25.2 L MCHC 31.5 L RDW 19.0 H Plt Count 283 MPV 11.3 H Immature Gran % (Auto) 0.8 H Neut % (Auto) 91.7 H Lymph % (Auto) 2.8 L [place] % (Auto) 4.5 Eos % (Auto) 0.0 Baso % (Auto) 0.2 Lymph # (Auto) 0.34 L [place] # (Auto) 0.6 Eos # (Auto) 0.0 Baso # (Auto) 0.0 Abs Immat Gran (auto) 0.10 H Absolute Neuts (auto) 11.3 H Absolute Nucleated RBC 0.000 Nucleated RBC % 0.0 ESR > 140 H PT 18.3 H INR 1.5 APTT 37.0 H Puncture Site ABG pH ABG pCO2 ABG pO2 ABG PO2/FiO2 Ratio ABG HCO3 ABG O2 Saturation ABG O2 Content ABG Base Excess A-a Gradient Oxyhemoglobin Total Hemoglobin O2 Delivery Device O2 Liters/Min FiO2 Sodium Cancelled 142 Potassium Cancelled 2.5 L* Chloride Cancelled Carbon Dioxide Anion Gap BUN Creatinine Estim Creat Clear Calc Estimated GFR Glucose Lactic Acid Calcium Total Bilirubin AST ALT Alkaline Phosphatase Total Creatine Kinase Troponin I C-Reactive Protein NT-Pro-B Natriuret Pep Total Protein Albumin Lipase Urine Color Urine Appearance Urine pH Ur Specific Burchard Urine Protein Urine Glucose (UA) Urine Ketones Ur Blood (Man) Urine Nitrate Urine Bilirubin Urine Urobilinogen Leukocyte Esterase Rfl Urine RBC Urine WBC Ur Squamous Epith Cells Urine Bacteria Urine Casts Urine Yeast (Budding) Nasal MRSA (PCR) Influenza A (RT-PCR) Influenza B (RT-PCR) RSV (RT-PCR) SARS-CoV-2 RNA (RT-PCR) 08/25/24 08/25/24 08/25/24 16:38 16:38 16:38 WBC RBC Hgb Hct MCV MCH MCHC RDW Plt Count MPV Immature Gran % (Auto) Neut % (Auto) Lymph % (Auto) [place] % (Auto) Eos % (Auto) Baso % (Auto) Lymph # (Auto) [place] # (Auto) Eos # (Auto) Baso # (Auto) Abs Immat Gran (auto) Absolute Neuts (auto) Absolute Nucleated RBC Nucleated RBC % ESR PT INR APTT Puncture Site ABG pH ABG pCO2 ABG pO2 ABG PO2/FiO2 Ratio ABG HCO3 ABG O2 Saturation ABG O2 Content ABG Base Excess A-a Gradient Oxyhemoglobin Total Hemoglobin O2 Delivery Device O2 Liters/Min FiO2 Sodium Potassium Chloride 96 L Carbon Dioxide Cancelled 33 H Anion Gap Cancelled 13 H BUN Cancelled Creatinine Estim Creat Clear Calc Estimated GFR Glucose Lactic Acid Calcium Total Bilirubin AST ALT Alkaline Phosphatase Total Creatine Kinase Troponin I C-Reactive Protein NT-Pro-B Natriuret Pep Total Protein Albumin Lipase Urine Color Urine Appearance Urine pH Ur Specific Burchard Urine Protein Urine Glucose (UA) Urine Ketones Ur Blood (Man) Urine Nitrate Urine Bilirubin Urine Urobilinogen Leukocyte Esterase Rfl Urine RBC Urine WBC Ur Squamous Epith Cells Urine Bacteria Urine Casts Urine Yeast (Budding) Nasal MRSA (PCR) Influenza A (RT-PCR) Influenza B (RT-PCR) RSV (RT-PCR) SARS-CoV-2 RNA (RT-PCR) 08/25/24 08/25/24 08/25/24 16:38 16:38 16:38 WBC RBC Hgb Hct MCV MCH MCHC RDW Plt Count MPV Immature Gran % (Auto) Neut % (Auto) Lymph % (Auto) [place] % (Auto) Eos % (Auto) Baso % (Auto) Lymph # (Auto) [place] # (Auto) Eos # (Auto) Baso # (Auto) Abs Immat Gran (auto) Absolute Neuts (auto) Absolute Nucleated RBC Nucleated RBC % ESR PT INR APTT Puncture Site ABG pH ABG pCO2 ABG pO2 ABG PO2/FiO2 Ratio ABG HCO3 ABG O2 Saturation ABG O2 Content ABG Base Excess A-a Gradient Oxyhemoglobin Total Hemoglobin O2 Delivery Device O2 Liters/Min FiO2 Sodium Potassium Chloride Carbon Dioxide Anion Gap BUN 151 H D Creatinine Cancelled 2.60 H Estim Creat Clear Calc Cancelled 17 Estimated GFR Cancelled Glucose Lactic Acid Calcium Total Bilirubin AST ALT Alkaline Phosphatase Total Creatine Kinase Troponin I C-Reactive Protein NT-Pro-B Natriuret Pep Total Protein Albumin Lipase Urine Color Urine Appearance Urine pH Ur Specific Burchard Urine Protein Urine Glucose (UA) Urine Ketones Ur Blood (Man) Urine Nitrate Urine Bilirubin Urine Urobilinogen Leukocyte Esterase Rfl Urine RBC Urine WBC Ur Squamous Epith Cells Urine Bacteria Urine Casts Urine Yeast (Budding) Nasal MRSA (PCR) Influenza A (RT-PCR) Influenza B (RT-PCR) RSV (RT-PCR) SARS-CoV-2 RNA (RT-PCR) 08/25/24 08/25/24 08/25/24 16:38 16:38 16:38 WBC RBC Hgb Hct MCV MCH MCHC RDW Plt Count MPV Immature Gran % (Auto) Neut % (Auto) Lymph % (Auto) [place] % (Auto) Eos % (Auto) Baso % (Auto) Lymph # (Auto) [place] # (Auto) Eos # (Auto) Baso # (Auto) Abs Immat Gran (auto) Absolute Neuts (auto) Absolute Nucleated RBC Nucleated RBC % ESR PT INR APTT Puncture Site ABG pH ABG pCO2 ABG pO2 ABG PO2/FiO2 Ratio ABG HCO3 ABG O2 Saturation ABG O2 Content ABG Base Excess A-a Gradient Oxyhemoglobin Total Hemoglobin O2 Delivery Device O2 Liters/Min FiO2 Sodium Potassium Chloride Carbon Dioxide Anion Gap BUN Creatinine Estim Creat Clear Calc Estimated GFR 18 L Glucose Cancelled 164 H Lactic Acid 1.4 Calcium Cancelled 8.4 Total Bilirubin Cancelled AST ALT Alkaline Phosphatase Total Creatine Kinase Troponin I C-Reactive Protein NT-Pro-B Natriuret Pep Total Protein Albumin Lipase Urine Color Urine Appearance Urine pH Ur Specific Burchard Urine Protein Urine Glucose (UA) Urine Ketones Ur Blood (Man) Urine Nitrate Urine Bilirubin Urine Urobilinogen Leukocyte Esterase Rfl Urine RBC Urine WBC Ur Squamous Epith Cells Urine Bacteria Urine Casts Urine Yeast (Budding) Nasal MRSA (PCR) Influenza A (RT-PCR) Influenza B (RT-PCR) RSV (RT-PCR) SARS-CoV-2 RNA (RT-PCR) 08/25/24 08/25/24 08/25/24 16:38 16:38 16:38 WBC RBC Hgb Hct MCV MCH MCHC RDW Plt Count MPV Immature Gran % (Auto) Neut % (Auto) Lymph % (Auto) [place] % (Auto) Eos % (Auto) Baso % (Auto) Lymph # (Auto) [place] # (Auto) Eos # (Auto) Baso # (Auto) Abs Immat Gran (auto) Absolute Neuts (auto) Absolute Nucleated RBC Nucleated RBC % ESR PT INR APTT Puncture Site ABG pH ABG pCO2 ABG pO2 ABG PO2/FiO2 Ratio ABG HCO3 ABG O2 Saturation ABG O2 Content ABG Base Excess A-a Gradient Oxyhemoglobin Total Hemoglobin O2 Delivery Device O2 Liters/Min FiO2 Sodium Potassium Chloride Carbon Dioxide Anion Gap BUN Creatinine Estim Creat Clear Calc Estimated GFR Glucose Lactic Acid Calcium Total Bilirubin 1.1 AST Cancelled 22 ALT Cancelled 16 Alkaline Phosphatase Cancelled Total Creatine Kinase Troponin I C-Reactive Protein NT-Pro-B Natriuret Pep Total Protein Albumin Lipase Urine Color Urine Appearance Urine pH Ur Specific [place]urchard Urine Protein Urine Glucose (UA) Urine Ketones Ur Blood (Man) Urine Nitrate Urine Bilirubin Urine Urobilinogen Leukocyte Esterase Rfl Urine RBC Urine WBC Ur Squamous Epith Cells Urine Bacteria Urine Casts Urine Yeast (Budding) Nasal MRSA (PCR) Influenza A (RT-PCR) Influenza B (RT-PCR) RSV (RT-PCR) SARS-CoV-2 RNA (RT-PCR) 08/25/24 08/25/24 08/25/24 16:38 16:38 16:38 WBC RBC Hgb Hct MCV MCH MCHC RDW Plt Count MPV Immature Gran % (Auto) Neut % (Auto) Lymph % (Auto) [place] % (Auto) Eos % (Auto) Baso % (Auto) Lymph # (Auto) [place] # (Auto) Eos # (Auto) Baso # (Auto) Abs Immat Gran (auto) Absolute Neuts (auto) Absolute Nucleated RBC Nucleated RBC % ESR PT INR APTT Puncture Site ABG pH ABG pCO2 ABG pO2 ABG PO2/FiO2 Ratio ABG HCO3 ABG O2 Saturation ABG O2 Content ABG Base Excess A-a Gradient Oxyhemoglobin Total Hemoglobin O2 Delivery Device O2 Liters/Min FiO2 Sodium Potassium Chloride Carbon Dioxide Anion Gap BUN Creatinine Estim Creat Clear Calc Estimated GFR Glucose Lactic Acid Calcium Total Bilirubin AST ALT Alkaline Phosphatase 75 Total Creatine Kinase 66 Troponin I 0.617 H* C-Reactive Protein Cancelled 33.5 H NT-Pro-B Natriuret Pep > 17772 H Total Protein Cancelled 7.0 Albumin Cancelled Lipase Urine Color Urine Appearance Urine pH Ur Specific [place] Urine Protein Urine Glucose (UA) Urine Ketones Ur Blood (Man) Urine Nitrate Urine Bilirubin Urine Urobilinogen Leukocyte Esterase Rfl Urine RBC Urine WBC Ur Squamous Epith Cells Urine Bacteria Urine Casts Urine Yeast (Budding) Nasal MRSA (PCR) Influenza A (RT-PCR) Influenza B (RT-PCR) RSV (RT-PCR) SARS-CoV-2 RNA (RT-PCR) 08/25/24 08/25/24 08/25/24 16:38 17:06 17:43 WBC RBC Hgb Hct MCV MCH MCHC RDW Plt Count MPV Immature Gran % (Auto) Neut % (Auto) Lymph % (Auto) [place] % (Auto) Eos % (Auto) Baso % (Auto) Lymph # (Auto) [place] # (Auto) Eos # (Auto) Baso # (Auto) Abs Immat Gran (auto) Absolute Neuts (auto) Absolute Nucleated RBC Nucleated RBC % ESR PT INR APTT Puncture Site Right radial ABG pH 7.446 ABG pCO2 46.3 H ABG pO2 100.8 H ABG PO2/FiO2 Ratio 4.20 ABG HCO3 31.2 H ABG O2 Saturation 97.8 ABG O2 Content 10.9 L ABG Base Excess 6.4 A-a Gradient 15.2 Oxyhemoglobin 95.0 Total Hemoglobin 8.0 L O2 Delivery Device Nasal cannula O2 Liters/Min 1.0 FiO2 24 Sodium Potassium Chloride Carbon Dioxide Anion Gap BUN Creatinine Estim Creat Clear Calc Estimated GFR Glucose Lactic Acid Calcium Total Bilirubin AST ALT Alkaline Phosphatase Total Creatine Kinase Troponin I C-Reactive Protein NT-Pro-B Natriuret Pep Total Protein Albumin 3.1 L Lipase 19 L Urine Color Yellow Urine Appearance Cloudy H Urine pH 5.0 Ur Specific [place] 1.013 Urine Protein 1+ H Urine Glucose (UA) Negative Urine Ketones Negative Ur Blood (Man) Negative Urine Nitrate Negative Urine Bilirubin Negative Urine Urobilinogen 0.2 Leukocyte Esterase Rfl Negative Urine RBC 21-50 H Urine WBC 0-5 Ur Squamous Epith Cells Few Urine Bacteria None seen Urine Casts >20 Urine Yeast (Budding) Present H Nasal MRSA (PCR) Not detected Influenza A (RT-PCR) Influenza B (RT-PCR) RSV (RT-PCR) SARS-CoV-2 RNA (RT-PCR) 08/25/24 19:56 WBC RBC Hgb Hct MCV MCH MCHC RDW Plt Count MPV Immature Gran % (Auto) Neut % (Auto) Lymph % (Auto) [place] % (Auto) Eos % (Auto) Baso % (Auto) Lymph # (Auto) [place] # (Auto) Eos # (Auto) Baso # (Auto) Abs Immat Gran (auto) Absolute Neuts (auto) Absolute Nucleated RBC Nucleated RBC % ESR PT INR APTT Puncture Site ABG pH ABG pCO2 ABG pO2 ABG PO2/FiO2 Ratio ABG HCO3 ABG O2 Saturation ABG O2 Content ABG Base Excess A-a Gradient Oxyhemoglobin Total Hemoglobin O2 Delivery Device O2 Liters/Min FiO2 Sodium Potassium Chloride Carbon Dioxide Anion Gap BUN Creatinine Estim Creat Clear Calc Estimated GFR Glucose Lactic Acid Calcium Total Bilirubin AST ALT Alkaline Phosphatase Total Creatine Kinase Troponin I C-Reactive Protein NT-Pro-B Natriuret Pep Total Protein Albumin Lipase Urine Color Urine Appearance Urine pH Ur Specific [place] Urine Protein Urine Glucose (UA) Urine Ketones Ur Blood (Man) Urine Nitrate Urine Bilirubin Urine Urobilinogen Leukocyte Esterase Rfl Urine RBC Urine WBC Ur Squamous Epith Cells Urine Bacteria Urine Casts Urine Yeast (Budding) Nasal MRSA (PCR) Influenza A (RT-PCR) Negative Influenza B (RT-PCR) Negative RSV (RT-PCR) Negative SARS-CoV-2 RNA (RT-PCR) Negative Impressions Chest X-Ray 08/25/24 18:10 IMPRESSION: Cardiomegaly, pulmonary vascular congestion and redistribution, consistent with mild congestive heart failure, mildly improved since 08/15/2024 Aortic atherosclerosis Left triple lead pacemaker Postoperative changes Foot X-Ray 08/25/24 18:30 IMPRESSION: Very prominent soft tissue ulcer at the posterior heel, with suggestion of calcaneal exposure Soft tissue swelling Prominent osteopenia; this may obscure fracture or bone destruction. If there is concern for osteomyelitis, consider three-phase radionuclide bone scan. Tibia/Fibula X-Ray 08/25/24 18:35 IMPRESSION: Osteopenia Soft tissue swelling Arterial calcifications Head CT 08/25/24 18:43 IMPRESSION: Cerebral atherosclerosis and chronic small vessel ischemic changes of the cerebral white matter Small chronic right frontal probable cerebrovascular accident No acute intracranial finding or hem EKG: Multiple EKGs Personally reviewed and interpreted. Cardiology interpretation pending. Electronic pacemaker noted Assessment and Plan Assessment and plan (1) Acute on chronic renal failure: Qualifiers: Acute renal failure type: unspecified Chronic kidney disease stage: stage 4 (severe) Qualified Code(s): N17.9 - Acute kidney failure, unspecified; N18.4 - Chronic kidney disease, stage 4 (severe) Code(s): N17.9 - Acute kidney failure, unspecified; N18.9 - Chronic kidney disease, unspecified Status: Acute Assessment and Plan: Most likely multifactorial. It is certainly component of hypovolemia decreased fluid intake given the patient's clinical appearance. Patient is also on diuretic therapy and has some prerenal component due to acute on chronic hypotension. Patient's BUN has increased markedly in this is less likely causing up component of her decreased oral intake and or confusion due to uremia. Will hold nephrotoxic medications including Entresto, Bumex and metolazone. Her will consult Nephrology for further recommendations. Patient's creatinine and BUN may be at the point where she may require hemodialysis for adequate fluid management but this will be difficult given the patient's hypotension (2) Sepsis: Qualifiers: Sepsis type: sepsis due to unspecified organism Sepsis acute organ dysfunction status: with acute organ dysfunction Severe sepsis acute organ dysfunction type: acute renal failure Acute renal failure type: unspecified Severe sepsis shock status: without septic shock Qualified Code(s): A41.9 - Sepsis, unspecified organism; R65.20 - Severe sepsis without septic shock; N17.9 - Acute kidney failure, unspecified Code(s): A41.9 - Sepsis, unspecified organism Status: Acute Assessment and Plan: The patient's hypotension could be strictly cardiac in nature versus hypovolemia but cannot rule out source of infection or sepsis. Patient received cefepime Flagyl and vancomycin in the ER to treat for possible infected foot wound. Will continue these antibiotics. Patient was noted to have mild elevation in white count and does have some chronic wounds but they do not visually a appear to be acutely infected but given her condition this cannot completely be ruled out especially in the setting of acute increasing ESR and CRP. She is not febrile. Blood cultures and urine cultures are pending. Will check procalcitonin and repeat CBC and electrolyte panel in a.m.. (3) Hypotension: Qualifiers: Hypotension type: hypotension due to hypovolemia Qualified Code(s): E86.1 - Hypovolemia Code(s): I95.9 - Hypotension, unspecified Status: Acute Assessment and Plan: The patient has some component of chronic hypotension with cardiology notes mentioning patient had prior asymptomatic hypotension with systolic blood pressures in the 90s. It appears that during her recent hospitalization the patient was started back on midodrine that had been discontinued during prior hospitalization. Cardiology during hospitalization in February recommended not treating asymptomatic hypotension. Patient's hypotension has resolved after adequate fluid resuscitation. Will currently hold midodrine at this time and trend patient's blood pressures. (4) Metabolic encephalopathy: Code(s): G93.41 - Metabolic encephalopathy Status: Acute Assessment and Plan: Likely due to uremia with markedly elevated BUN above baseline. However cannot rule out some component of encephalopathy due to acute infection. Will treat underlying causes the monitor. (5) Chronic kidney disease, stage 4 (severe): Code(s): N18.4 - Chronic kidney disease, stage 4 (severe) Status: Chronic (6) Cardiomyopathy: Qualifiers: Cardiomyopathy type: ischemic Qualified Code(s): I25.5 - Ischemic cardi omyopathy Code(s): I42.9 - Cardiomyopathy, unspecified Status: Acute Assessment and Plan: Patient's chest x-ray appears similar to prior. After receiving 30 mL/kilos fluid bolus patient's oxygen requirement did go up from her baseline 1 L up to 3 L. the patient's BNP is markedly elevated compared to prior values. Wondering if recent initiation of midodrine may have contributed to to an acute decompensation. The patient had recent echocardiogram earlier this month demonstrated EF that improved to 55%. With some right-sided ventricular enlargement and expected valvular abnormalities given the patient's history. Given the patient's degree of uremia and hypotension I do not feel comfortable continuing the patient's midodrine, Entresto Bumex or metolazone without discussion with both Nephrology and Cardiology. Cardiology a consult has been requested for further recommendations and guidance.. (7) Elevated troponin: Code(s): R79.89 - Other specified abnormal findings of blood chemistry Status: Acute Assessment and Plan: Not likely due to acute plaque rupture. Most consistent with cardiac strain due to underlying chronic ischemic cardiomyopathy and worsening renal function. Troponin profile relatively flat. Will monitor in intermediate unit. (8) Decubitus ulcer of sacral area: Qualifiers: Pressure injury stage: unspecified pressure injury stage Qualified Code(s): L89.159 - Pressure ulcer of sacral region, unspecified stage Code(s): L89.159 - Pressure ulcer of sacral region, unspecified stage Status: Acute Assessment and Plan: Wound Care consult Plan 80 minutes was spent in critical care activities. Due to a high probability of clinically significant, life threatening deterioration, the patient required my highest level of preparedness to intervene emergently and I personally spent this critical care time directly and personally managing the patient. This critical care time included obtaining a history; examining the patient; pulse oximetry; ordering and review of studies; arranging urgent treatment with development of a management plan; evaluation of patient's response to treatment; frequent reassessment; and discussions with other providers. It was exclusive of separately billable procedures and treating other patients and teaching time. Please see Assessment and Plan section and the rest of the note for further information on patient assessment and treatment. Quality VTE Prophylaxis VTE prophylaxis: pharmacologic ordered (Heparin 5000 units subQ q.12 hours) Hospitalist [facility] Advance Care Plan I have confirmed that the patient's Advanced Care Plan is present, code status is documented, or surrogate decision maker is listed in patient medical record.: Yes Medication Reconciliation I have utilized all available resources to obtain, update and review the patients current medications (includes all prescriptions, OTC, herbals, cannabis , and nutritional supplements).: Yes
--- NOTE | 2024-08-25 21:09 | ECG_ITS ---
Test Date: 2024-08-25 21:18:34 Measurements Intervals [place] Rate: 69 P: 95 OH: 170 QRS: 8 QRSD: 125 T: 111 QT: 436 QTc: 468 Interpretive Statements ELECTRONIC VENTRICULAR PACEMAKER ABNORMAL RHYTHM ECG Compared to ECG 08/25/2024 16:52:40 No significant changes Electronically Signed On 08-26-2024 10:57:31 CDT by Yash Nelson M.D.
[2024-08-25 21:35] LABS: Magnesium 1.7 mg/dL (1.6-2.3)
[2024-08-25 21:39] LABS: Troponin I 0.633 ng/mL (0.000-0.034)
--- NOTE | 2024-08-25 22:52 | ADMGEN ---
This patient, Monica Rangel, was admitted to IMU Room 206-02. Patient/family oriented to hospital policies and general routines including ID bracelet, bed and alarms, visiting hours, pain management, procedures, bathroom and other care routines, personal items, smoking policy, room service/diet, and visiting hours. Information on how to activate the Rapid Response Team has been discussed. Patient/Family are encouraged to report perceived risks to care and to ask questions if they do not understand what they are told or what they should do.
[2024-08-26] VITALS (13 sets, daily range): BP systolic 93–118; BP diastolic 38–75; PULSE 59–113; RESP 14–24; TEMP 35.8–36.6; O2SAT 93–100; BMI 33.7
[2024-08-26 01:57] LABS: Basophils Percent Auto 0.2 % (0.2-1.2); Hemoglobin 7.7 g/dL (12.0-15.0); Immature Granulocyte Absolute 0.05 K/mm3 (0.00-0.031); Immature Granulocyte Percent A 0.5 % (0-0.5); Lymphocytes Absolute Auto 0.51 K/mm3 (0.9-3.2); Lymphocytes Percent Auto 4.8 % (18.3-44.2); Mean Corpuscular HGB Conc 30.8 g/dl (32-36); Mean Corpuscular Volume 81.2 fl (80-100); Mean Platelet Volume 10.7 fl (7.4-10.4); Monocytes Absolute Auto 0.7 K/mm3 (0.1-0.6); Monocytes Percent Auto 6.9 % (2.6-8.5); Neutrophils Absolute Auto 9.4 K/mm3 (1.3-6.7); Neutrophils Percent Auto 87.6 % (45.5-73.1); Platelet Count Result 245 k/mm3 (150-375); Red Blood Count 3.08 M/mm3 (4.2-5.4); White Blood Count 10.7 K/mm3 (4.5-10.0)
[2024-08-26] MEDS: SODIUM CHLORIDE 0.9% IV 1,000 ML 75 ML IV CONT (02:08)
[2024-08-26 02:19] LABS: Anisocytosis 1+; Hypochromasia 1+; Platelet Estimate Adequate (Adequate); Schistocytes None Seen
[2024-08-26 02:23] LABS: Alanine Aminotransferase 15 U/L (6-35); Albumin Level 2.9 g/dL (3.5-5.1); Alkaline Phosphatase 73 U/L (38-126); Anion Gap 7 mmol/L (4-12); Aspartate Amino Transferase 21 U/L (14-36); Bilirubin,Total 0.9 mg/dL (0.2-1.3); Calcium 8.5 mg/dL (8.4-10.2); Carbon Dioxide 36 mmol/L (22-30); Chloride 100 mmol/L (98-107); Estimated CRCL calculation 18 ml/min; Estimated Glomerular Filt Rate 19; Glucose 143 mg/dL (65-110); Sodium 143 mmol/L (137-145)
[2024-08-26 02:26] LABS: Potassium 2.4 mmol/L (3.4-5.0)
[2024-08-26 02:38] LABS: Blood Urea Nitrogen 134 mg/dL (7-17)
[2024-08-26 02:52] LABS: Procalcitonin 2.3 ng/mL
[2024-08-26] MEDS: POTASSIUM CHLORIDE INJ 40 MEQ in SODIUM CHLORIDE 0.9% IV 500 ML 130 MEQ IVPB (02:56)
[2024-08-26] MEDS: metroNIDAZOLE 500 MG/ISO 100ML 500 MG/100 ML BAG 100 MG IVPB ×2 (03:57→10:59)
[2024-08-26] MEDS: FLUCONAZOLE 100 MG/NACL 50 ML 100 MG/50 ML BTL 50 MG IVPB (05:46)
[2024-08-26] MEDS: LEVOTHYROXINE SODIUM 75 MCG TABLET PO (06:18)
[2024-08-26] MEDS: UMECLIDINIUM BROMIDE 62.5 MCG ELLIPTA 1 PUFF INHALATION (07:01)
[2024-08-26 08:54] LABS: Magnesium 1.8 mg/dL (1.6-2.3)
[2024-08-26 08:56] LABS: Anion Gap 10 mmol/L (4-12); Calcium 8.7 mg/dL (8.4-10.2); Carbon Dioxide 35 mmol/L (22-30); Chloride 102 mmol/L (98-107); Estimated CRCL calculation 21 ml/min; Estimated Glomerular Filt Rate 22; Glucose 109 mg/dL (65-110); Potassium 2.7 mmol/L (3.4-5.0); Sodium 147 mmol/L (137-145)
[2024-08-26 09:03] LABS: Blood Urea Nitrogen 138 mg/dL (7-17)
--- NOTE | 2024-08-26 09:22 | P.PNIM_ITS ---
Progress Note: A&P Assessment and Plan (1) Acute on chronic renal failure: Qualifiers: Acute renal failure type: unspecified Chronic kidney disease stage: stage 4 (severe) Qualified Code(s): N17.9 - Acute kidney failure, unspecified; N18.4 - Chronic kidney disease, stage 4 (severe) Code(s): N17.9 - Acute kidney failure, unspecified; N18.9 - Chronic kidney disease, u nspecified Status: Acute Assessment and Plan: * Most likely multifactorial. It is certainly component of hypovolemia decreased fluid intake given the patient's clinical appearance. Patient is also on diuretic therapy and has some prerenal component due to acute on chronic hypotension. * Patient's BUN has increased markedly in this is less likely causing up component of her decreased oral intake and or confusion due to uremia. Will hold nephrotoxic medications including Entresto, Bumex and metolazone. * Consult Nephrology for further recommendations. Patient's creatinine and BUN may be at the point where she may require hemodialysis for adequate fluid management but this will be difficult given the patient's hypotension. * BUN 35, Creatinine 2.20, and GFR 22. * 3+ BLE edema, stop IV fluids. (2) Sepsis: Qualifiers: Acute renal failure type: unspecified Sepsis acute organ dysfunction status: with acute organ dysfunction Sepsis type: sepsis due to unspecified organism Severe sepsis acute organ dysfunction type: acute renal failure Severe sepsis shock status: without septic shock Qualified Code(s): A41.9 - Sepsis, unspecified organism; R65.20 - Severe sepsis without septic shock; N17.9 - Acute kidney failure, unspecified Code(s): A41.9 - Sepsis, unspecified organism Status: Acute Assessment and Plan: * The patient's hypotension could be strictly cardiac in nature versus hypovolemia but cannot rule out source of infection or sepsis. * Patient received cefepime Flagyl and vancomycin in the ER to treat for possi ble infected foot wound. Will switch antibiotic to Ceftriaxone 2 gm IVPB daily, change Flagyl to oral, and stop Vancomycin. * Patient was noted to have mild elevation in white count and does have some chronic wounds but they do not visually a appear to be acutely infected but given her condition this cannot completely be ruled out especially in the setting of acute increasing ESR and CRP. * She is not febrile. Blood cultures and urine cultures are pending. Procalcitonin 2.3. * WBC improved from 12.3>10.7 (3) Hypokalemia: Code(s): E87.6 - Hypokalemia Status: Acute Assessment and Plan: * Potassium 2.4>2.7>2.9 * Potassium 40 meq PO q4 x 2 doses. * BMP at 22:00 * Follow labs. (4) Hypotension: Qualifiers: Hypotension type: hypotension due to hypovolemia Qualified Code(s): E86.1 - Hypovolemia Code(s): I95.9 - Hypotension, unspecified Status: Acute Assessment and Plan: * Blood pressure this afternoon 93/43. * Patient with 3+ BLE edema. * Restart Midodrine 10 mg PO TID * Encourage PO intake. * Cardiology consult. (5) Decubitus ulcer of sacral area: Qualifiers: Pressure injury stage: unspecified pressure injury stage Qualified Code(s): L89.159 - Pressure ulcer of sacral region, unspecified stage Code(s): L89.159 - Pressure ulcer of sacral region, unspecified stage Status: Acute Assessment and Plan: * Wound Care consult. * Antifungal barrier cream. * Turn q 2. (6) Ulcer of left heel: Code(s): L97.429 - Non-pressure chronic ulcer of left heel and midfoot with unspecified severity Status: Acute Assessment and Plan: * Santyl to wound bed to promote healing. * Waffle boots. (7) Metabolic encephalopathy: Code(s): G93.41 - Metabolic encephalopathy Status: Acute Assessment and Plan: * Likely due to uremia with markedly elevated BUN above baseline. However cannot rule out some component of encephalopathy due to acute infection. (8) Chronic kidney disease, stage 4 (severe): Code(s): N18.4 - Chronic kidney disease, stage 4 (severe) Status: Chronic Assessment and Plan: * BUN 138, Creatinine 2.20, and GFR 22; repeat afternoon labs BUN 134, Creat inine 2.20, and GFR 22. (9) Elevated troponin: Code(s): R79.89 - Other specified abnormal findings of blood chemistry Status: Acute Assessment and Plan: * Trop 0.617> 0.633>0.185 * IMU * Cardiac consult. (10) Cardiomyopathy: Qualifiers: Cardiomyopathy type: ischemic Qualified Code(s): I25.5 - Ischemic cardiomyopathy Code(s): I42.9 - Cardiomyopathy, unspecified Status: Acute Assessment and Plan: * Patient's chest x-ray appears similar to prior. * After receiving 30 mL/kilos fluid bolus patient's oxygen requirement did go up from her baseline 1 L up to 3 L. the patient's BNP is markedly elevated compared to prior values. Wondering if recent initiation of midodrine may have contributed to to an acute decompensation. * The patient had recent echocardiogram earlier this month demonstrated EF that improved to 55%. With some right-sided ventricular enlargement and expected valvular abnormalities given the patient's history. * Hold Entresto,Bumex, or metolazone without discussion with both Nephrology and Cardiology. * Cardiology consult. Subjective Date/time seen: 08/26/24 09:22 Interval history: Patient denies chest pain, palpitations, headache, dizziness, nausea, or vomiting. Patient reports her last bowel movement was 2 days ago. Review of Systems Review of Systems: All systems reviewed & are unremarkable except as noted in HPI and below Exam Const: General: comfortable and no acute distress Resp: Effort & Inspection: normal respiratory effort Auscultation: clear to auscultation bilaterally Cardio: Rate: regular rate Rhythm: regular rhythm GI: GI Palp: Yes Soft to palpation Auscultation: normal bowel sounds Skin: Wounds: wounds noted (sacral, bilateral heel, and right lower leg. See todays wound care eval. ) Neuro: Speech: normal speech Extrem: General: pedal edema bilaterally 3+ Psych: Mental Status: mental status grossly normal Affect: normal affect Objective Data Vital Signs Vital Signs: Vital Signs - 24 hr 08/25/24 16:05 08/25/24 16:21 08/25/24 16:32 Temperature 98.4 F Pulse Rate 83 87 82 Respiratory Rate 20 21 H 24 H Blood Pressure 93/49 L 93/49 L 94/55 L Pulse Oximetry 96 98 100 Oxygen Delivery Nasal Cannula Oxygen Flow Rate 2 08/25/24 16:47 08/25/24 17:00 08/25/24 17:02 Temperature Pulse Rate 80 77 84 Respiratory Rate 20 15 24 H Blood Pressure 103/42 L 100/48 L Pulse Oximetry 100 Oxygen Delivery Oxygen Flow Rate 08/25/24 17:15 08/25/24 17:30 08/25/24 17:32 Temperature Pulse Rate 75 74 74 Respiratory Rate 20 18 18 Blood Pressure 99/45 L Pulse Oximetry 100 99 100 Oxygen Delivery Oxygen Flow Rate 08/25/24 17:45 08/25/24 17:47 08/25/24 18:15 Temperature Pulse Rate 74 74 74 Respiratory Rate 15 18 18 Blood Pressure 94/30 L Pulse Oximetry 100 Oxygen Delivery Oxygen Flow Rate 08/25/24 18:30 08/25/24 18:31 08/25/24 18:47 Temperature Pulse Rate 73 73 73 Respiratory Rate 19 19 19 Blood Pressure 99/51 L 89/71 L Pulse Oximetry 100 100 100 Oxygen Delivery Oxygen Flow Rate 08/25/24 18:48 08/25/24 19:00 08/25/24 19:02 Temperature Pulse Rate 73 73 73 Respiratory Rate 18 25 H 22 H Blood Pressure 88/72 L Pulse Oximetry 100 Oxygen Delivery Oxygen Flow Rate 08/25/24 19:15 08/25/24 19:17 08/25/24 19:30 Temperature Pulse Rate 73 74 73 Respiratory Rate 17 26 H 22 H Blood Pressure 90/50 L Pulse Oximetry 100 100 98 Oxygen Delivery Oxygen Flow Rate 08/25/24 19:45 08/25/24 19:46 08/25/24 19:47 Temperature 97.9 F Pulse Rate 73 73 73 Respiratory Rate 18 20 18 Blood Pressure 93/81 L Pulse Oximetry 100 100 100 Oxygen Delivery Oxygen Flow Rate 08/25/24 20:00 08/25/24 20:02 08/25/24 20:15 Temperature 97.3 F L 97.2 F L 97.1 F L Pulse Rate 72 72 70 Respiratory Rate 19 17 20 Blood Pressure 97/42 L Pulse Oximetry 98 99 100 Oxygen Delivery Oxygen Flow Rate 08/25/24 20:30 08/25/24 20:31 08/25/24 20:45 Temperature 97.0 F L 96.9 F L 96.9 F L Pulse Rate 70 70 71 Respiratory Rate 16 14 15 Blood Pressure 94/51 L Pulse Oximetry Oxygen Delivery Oxygen Flow Rate 08/25/24 20:47 08/25/24 21:00 08/25/24 21:08 Temperature 96.9 F L 96.8 F L 96.9 F L Pulse Rate 71 70 70 Respiratory Rate 13 18 19 Blood Pressure 98/55 L 109/44 L Pulse Oximetry 100 100 Oxygen Delivery Oxygen Flow Rate 08/25/24 21:15 08/25/24 21:16 08/25/24 21:17 Temperature 96.8 F L 96.8 F L 96.8 F L Pulse Rate 69 72 69 Respiratory Rate 17 18 18 Blood Pressure 106/47 L 111/51 L Pulse Oximetry 100 100 100 Oxygen Delivery Oxygen Flow Rate 08/25/24 21:30 08/25/24 21:32 08/25/24 22:20 Temperature 96.8 F L 96.8 F L 97.8 F Pulse Rate 68 68 68 Respiratory Rate 21 H 22 H 22 H Blood Pressure 107/43 L 123/90 Pulse Oximetry 99 Oxygen Delivery Oxygen Flow Rate 08/25/24 22:59 08/25/24 23:49 08/26/24 00:00 Temperature 97.7 F Pulse Rate 66 66 64 Respiratory Rate 22 H 20 Blood Pressure 99/38 L Pulse Oximetry 99 99 Oxygen Delivery Nasal Cannula Oxygen Flow Rate 3 08/26/24 02:00 08/26/24 04:00 08/26/24 04:41 Temperature 97.9 F Pulse Rate 66 66 66 Respiratory Rate 20 20 Blood Pressure 107/43 L Pulse Oximetry 99 96 Oxygen Delivery Nasal Cannula Oxygen Flow Rate 3 08/26/24 04:00 08/26/24 06:00 08/26/24 06:58 Temperature Pulse Rate 64 65 63 Respiratory Rate 18 Blood Pressure Pulse Oximetry 93 Oxygen Delivery Nasal Cannula Oxygen Flow Rate 2 08/26/24 06:58 08/26/24 08:00 Temperature 97.5 F L Pulse Rate 63 64 Respiratory Rate 18 22 H Blood Pressure 114/75 Pulse Oximetry 99 Oxygen Delivery Oxygen Flow Rate Intake/Output Intake/Output: Intake & Output 08/23/24 08/24/24 08/25/24 08/26/24 23:59 23:59 23:59 23:59 Intake Total 3000 175 Output Total 600 Balance 3000 -425 Meds/Results Medications: Active Medications Generic Name Dose Route Start Last Admin Trade Name Serjioq PRN Reason Stop Dose Admin Allopurinol 50 mg 08/26/24 09:00 Allopurinol 50 Mg Tablet PO Q48H [facility] Aspirin 325 mg 08/26/24 09:00 Aspirin 325 Mg Tablet PO DAILY [facility] Heparin Sodium (Porcine) 5,000 units 08/26/24 09:00 Heparin Sodium 5,000 Units/Ml Vial SUB-Q Q12HR [facility] Sodium Chloride 1,000 mls @ 75 mls/hr 08/25/24 21:20 08/26/24 02:08 Normal Saline Iv IV CONT 75 mls/hr .[id number] MADELINE Administration Metronidazole 500 mg in 100 mls @ 100 mls/hr 08/26/24 03:00 08/26/24 03:57 Flagyl 500 Mg/Iso Soln 100 Ml IVPB 100 mls/hr Q8H MADELINE Administration Cefepime HCl 2 gm in 50 mls @ 100 mls/hr 08/26/24 18:00 Maxipime 1 Gm/Ns 50 Ml IVPB Q24H [facility] Fluconazole/Dextrose 100 mg in 50 mls @ 50 mls/hr 08/26/24 06:00 08/26/24 05:46 Diflucan 100 Mg/Nacl 50 Ml IVPB 09/01/24 06:59 50 mls/hr Q72H [facility] Administration Levothyroxine Sodium 75 mcg 08/26/24 06:30 08/26/24 06:18 Levothyroxine Sodium 75 Mcg Tablet PO 75 mcg DAILY@0630 [facility] Administration Midodrine 10 mg 08/26/24 09:00 08/26/24 08:39 Midodrine Hcl 10 Mg Tablet PO Not Given TID [facility] Ondansetron HCl 4 mg 08/25/24 21:16 Ondansetron Inj 4 Mg/2 Ml Vial IV PUSH Q4H PRN Nausea Umeclidinium [place] 1 puff 08/26/24 08:00 08/26/24 07:01 Umeclidinium [place] 62.5 Mcg Ellipta INHALATION 1 puff DAILYRT MADELINE Administration Vancomycin HCl 1 each 08/25/24 17:15 Vancomycin For Acute Kidney Injury IVPB PRN PRN Vancomycin Protocol Radiology Results: ITS Impressions Chest X-Ray 08/25/24 18:10 IMPRESSION: Cardiomegaly, pulmonary vascular congestion and redistribution, consistent with mild congestive heart failure, mildly improved since 08/15/2024 Aortic atherosclerosis Left triple lead pacemaker Postoperative changes Foot X-Ray 08/25/24 18:30 IMPRESSION: Very prominent soft tissue ulcer at the posterior heel, with suggestion of calcaneal exposure Soft tissue swelling Prominent osteopenia; this may obscure fracture or bone destruction. If there is concern for osteomyelitis, consider three-phase radionuclide bone scan. Tibia/Fibula X-Ray 08/25/24 18:35 IMPRESSION: Osteopenia Soft tissue swelling Arterial calcifications Head CT 08/25/24 18:43 IMPRESSION: Cerebral atherosclerosis and chronic small vessel ischemic changes of the cerebral white matter Small chronic right frontal probable cerebrovascular accident No acute intracranial finding or hemorrhage Labs Labs: Laboratory Results - last 24 hr 08/25/24 08/25/24 08/25/24 16:38 16:38 16:38 WBC 12.3 H RBC 3.21 L Hgb 8.1 L Hct 25.7 L MCV 80.1 MCH 25.2 L MCHC 31.5 L RDW 19.0 H Plt Count 283 MPV 11.3 H Immature Gran % (Auto) 0.8 H Neut % (Auto) 91.7 H Lymph % (Auto) 2.8 L [place] % (Auto) 4.5 Eos % (Auto) 0.0 Baso % (Auto) 0.2 Lymph # (Auto) 0.34 L [place] # (Auto) 0.6 Eos # (Auto) 0.0 Baso # (Auto) 0.0 Abs Immat Gran (auto) 0.10 H Absolute Neuts (auto) 11.3 H Absolute Nucleated RBC 0.000 Nucleated RBC % 0.0 Platelet Estimate Hypochromasia Anisocytosis Schistocytes ESR > 140 H PT 18.3 H INR 1.5 APTT 37.0 H Puncture Site ABG pH ABG pCO2 ABG pO2 ABG PO2/FiO2 Ratio ABG HCO3 ABG O2 Saturation ABG O2 Content ABG Base Excess A-a Gradient Oxyhemoglobin Total Hemoglobin O2 Delivery Device O2 Liters/Min FiO2 Sodium Cancelled 142 Potassium Cancelled 2.5 L* Chloride Cancelled Carbon Dioxide Anion Gap BUN Creatinine Estim Creat Clear Calc Estimated GFR Glucose Lactic Acid Calcium Magnesium Total Bilirubin AST ALT Alkaline Phosphatase Total Creatine Kinase Troponin I C-Reactive Protein NT-Pro-B Natriuret Pep Total Protein Albumin Lipase Procalcitonin Urine Color Urine Appearance Urine pH Ur Specific [place] Urine Protein Urine Glucose (UA) Urine Ketones Ur Blood (Man) Urine Nitrate Urine Bilirubin Urine Urobilinogen Leukocyte Esterase Rfl Urine RBC Urine WBC Ur Squamous Epith Cells Urine Bacteria Urine Casts Urine Yeast (Budding) Nasal MRSA (PCR) Influenza A (RT-PCR) Influenza B (RT-PCR) RSV (RT-PCR) SARS-CoV-2 RNA (RT-PCR) 08/25/24 08/25/24 08/25/24 16:38 16:38 16:38 WBC RBC Hgb Hct MCV MCH MCHC RDW Plt Count MPV Immature Gran % (Auto) Neut % (Auto) Lymph % (Auto) [place] % (Auto) Eos % (Auto) Baso % (Auto) Lymph # (Auto) [place] # (Auto) Eos # (Auto) Baso # (Auto) Abs Immat Gran (auto) Absolute Neuts (auto) Absolute Nucleated RBC Nucleated RBC % Platelet Estimate Hypochromasia Anisocytosis Schistocytes ESR PT INR APTT Puncture Site ABG pH ABG pCO2 ABG pO2 ABG PO2/FiO2 Ratio ABG HCO3 ABG O2 Saturation ABG O2 Content ABG Base Excess A-a Gradient Oxyhemoglobin Total Hemoglobin O2 Delivery Device O2 Liters/Min FiO2 Sodium Potassium Chloride 96 L Carbon Dioxide Cancelled 33 H Anion Gap Cancelled 13 H BUN Cancelled Creatinine Estim Creat Clear Calc Estimated GFR Glucose Lactic Acid Calcium Magnesium Total Bilirubin AST ALT Alkaline Phosphatase Total Creatine Kinase Troponin I C-Reactive Protein NT-Pro-B Natriuret Pep Total Protein Albumin Lipase Procalcitonin Urine Color Urine Appearance Urine pH Ur Specific [place] Urine Protein Urine Glucose (UA) Urine Ketones Ur Blood (Man) Urine Nitrate Urine Bilirubin Urine Urobilinogen Leukocyte Esterase Rfl Urine RBC Urine WBC Ur Squamous Epith Cells Urine Bacteria Urine Casts Urine Yeast (Budding) Nasal MRSA (PCR) Influenza A (RT-PCR) Influenza B (RT-PCR) RSV (RT-PCR) SARS-CoV-2 RNA (RT-PCR) 08/25/24 08/25/24 08/25/24 16:38 16:38 16:38 WBC RBC Hgb Hct MCV MCH MCHC RDW Plt Count MPV Immature Gran % (Auto) Neut % (Auto) Lymph % (Auto) [place] % (Auto) Eos % (Auto) Baso % (Auto) Lymph # (Auto) [place] # (Auto) Eos # (Auto) Baso # (Auto) Abs Immat Gran (auto) Absolute Neuts (auto) Absolute Nucleated RBC Nucleated RBC % Platelet Estimate Hypochromasia Anisocytosis Schistocytes ESR PT INR APTT Puncture Site ABG pH ABG pCO2 ABG pO2 ABG PO2/FiO2 Ratio ABG HCO3 ABG O2 Saturation ABG O2 Content ABG Base Excess A-a Gradient Oxyhemoglobin Total Hemoglobin O2 Delivery Device O2 Liters/Min FiO2 Sodium Potassium Chloride Carbon Dioxide Anion Gap BUN 151 H D Creatinine Cancelled 2.60 H Estim Creat Clear Calc Cancelled 17 Estimated GFR Cancelled Glucose Lactic Acid Calcium Magnesium Total Bilirubin AST ALT Alkaline Phosphatase Total Creatine Kinase Troponin I C-Reactive Protein NT-Pro-B Natriuret Pep Total Protein Albumin Lipase Procalcitonin Urine Color Urine Appearance Urine pH Ur Specific [place] Urine Protein Urine Glucose (UA) Urine Ketones Ur Blood (Man) Urine Nitrate Urine Bilirubin Urine Urobilinogen Leukocyte Esterase Rfl Urine RBC Urine WBC Ur Squamous Epith Cells Urine Bacteria Urine Casts Urine Yeast (Budding) Nasal MRSA (PCR) Influenza A (RT-PCR) Influenza B (RT-PCR) RSV (RT-PCR) SARS-CoV-2 RNA (RT-PCR) 08/25/24 08/25/24 08/25/24 16:38 16:38 16:38 WBC RBC Hgb Hct MCV MCH MCHC RDW Plt Count MPV Immature Gran % (Auto) Neut % (Auto) Lymph % (Auto) [place] % (Auto) Eos % (Auto) Baso % (Auto) Lymph # (Auto) [place] # (Auto) Eos # (Auto) Baso # (Auto) Abs Immat Gran (auto) Absolute Neuts (auto) Absolute Nucleated RBC Nucleated RBC % Platelet Estimate Hypochromasia Anisocytosis Schistocytes ESR PT INR APTT Puncture Site ABG pH ABG pCO2 ABG pO2 ABG PO2/FiO2 Ratio ABG HCO3 ABG O2 Saturation ABG O2 Content ABG Base Excess A-a Gradient Oxyhemoglobin Total Hemoglobin O2 Delivery Device O2 Liters/Min FiO2 Sodium Potassium Chloride Carbon Dioxide Anion Gap BUN Creatinine Estim Creat Clear Calc Estimated GFR 18 L Glucose Cancelled 164 H Lactic Acid 1.4 Calcium Cancelled 8.4 Magnesium Total Bilirubin Cancelled AST ALT Alkaline Phosphatase Total Creatine Kinase Troponin I C-Reactive Protein NT-Pro-B Natriuret Pep Total Protein Albumin Lipase Procalcitonin Urine Color Urine Appearance Urine pH Ur Specific [place] Urine Protein Urine Glucose (UA) Urine Ketones Ur Blood (Man) Urine Nitrate Urine Bilirubin Urine Urobilinogen Leukocyte Esterase Rfl Urine RBC Urine WBC Ur Squamous Epith Cells Urine Bacteria Urine Casts Urine Yeast (Budding) Nasal MRSA (PCR) Influenza A (RT-PCR) Influenza B (RT-PCR) RSV (RT-PCR) SARS-CoV-2 RNA (RT-PCR) 08/25/24 08/25/24 08/25/24 16:38 16:38 16:38 WBC RBC Hgb Hct MCV MCH MCHC RDW Plt Count MPV Immature Gran % (Auto) Neut % (Auto) Lymph % (Auto) [place] % (Auto) Eos % (Auto) Baso % (Auto) Lymph # (Auto) [place] # (Auto) Eos # (Auto) Baso # (Auto) Abs Immat Gran (auto) Absolute Neuts (auto) Absolute Nucleated RBC Nucleated RBC % Platelet Estimate Hypochromasia Anisocytosis Schistocytes ESR PT INR APTT Puncture Site ABG pH ABG pCO2 ABG pO2 ABG PO2/FiO2 Ratio ABG HCO3 ABG O2 Saturation ABG O2 Content ABG Base Excess A-a Gradient Oxyhemoglobin Total Hemoglobin O2 Delivery Device O2 Liters/Min FiO2 Sodium Potassium Chloride Carbon Dioxide Anion Gap BUN Creatinine Estim Creat Clear Calc Estimated GFR Glucose Lactic Acid Calcium Magnesium Total Bilirubin 1.1 AST Cancelled 22 ALT Cancelled 16 Alkaline Phosphatase Cancelled Total Creatine Kinase Troponin I C-Reactive Protein NT-Pro-B Natriuret Pep Total Protein Albumin Lipase Procalcitonin Urine Color Urine Appearance Urine pH Ur Specific [place] Urine Protein Urine Glucose (UA) Urine Ketones Ur Blood (Man) Urine Nitrate Urine Bilirubin Urine Urobilinogen Leukocyte Esterase Rfl Urine RBC Urine WBC Ur Squamous Epith Cells Urine Bacteria Urine Casts Urine Yeast (Budding) Nasal MRSA (PCR) Influenza A (RT-PCR) Influenza B (RT-PCR) RSV (RT-PCR) SARS-CoV-2 RNA (RT-PCR) 08/25/24 08/25/24 08/25/24 16:38 16:38 16:38 WBC RBC Hgb Hct MCV MCH MCHC RDW Plt Count MPV Immature Gran % (Auto) Neut % (Auto) Lymph % (Auto) [place] % (Auto) Eos % (Auto) Baso % (Auto) Lymph # (Auto) [place] # (Auto) Eos # (Auto) Baso # (Auto) Abs Immat Gran (auto) Absolute Neuts (auto) Absolute Nucleated RBC Nucleated RBC % Platelet Estimate Hypochromasia Anisocytosis Schistocytes ESR PT INR APTT Puncture Site ABG pH ABG pCO2 ABG pO2 ABG PO2/FiO2 Ratio ABG HCO3 ABG O2 Saturation ABG O2 Content ABG Base Excess A-a Gradient Oxyhemoglobin Total Hemoglobin O2 Delivery Device O2 Liters/Min FiO2 Sodium Potassium Chloride Carbon Dioxide Anion Gap BUN Creatinine Estim Creat Clear Calc Estimated GFR Glucose Lactic Acid Calcium Magnesium Total Bilirubin AST ALT Alkaline Phosphatase 75 Total Creatine Kinase 66 Troponin I 0.617 H* C-Reactive Protein Cancelled 33.5 H NT-Pro-B Natriuret Pep > 84366 H Total Protein Cancelled 7.0 Albumin Cancelled Lipase Procalcitonin Urine Color Urine Appearance Urine pH Ur Specific [place] Urine Protein Urine Glucose (UA) Urine Ketones Ur Blood (Man) Urine Nitrate Urine Bilirubin Urine Urobilinogen Leukocyte Esterase Rfl Urine RBC Urine WBC Ur Squamous Epith Cells Urine Bacteria Urine Casts Urine Yeast (Budding) Nasal MRSA (PCR) Influenza A (RT-PCR) Influenza B (RT-PCR) RSV (RT-PCR) SARS-CoV-2 RNA (RT-PCR) 08/25/24 08/25/24 08/25/24 16:38 17:06 17:43 WBC RBC Hgb Hct MCV MCH MCHC RDW Plt Count MPV Immature Gran % (Auto) Neut % (Auto) Lymph % (Auto) [place] % (Auto) Eos % (Auto) Baso % (Auto) Lymph # (Auto) [place] # (Auto) Eos # (Auto) Baso # (Auto) Abs Immat Gran (auto) Absolute Neuts (auto) Absolute Nucleated RBC Nucleated RBC % Platelet Estimate Hypochromasia Anisocytosis Schistocytes ESR PT INR APTT Puncture Site Right radial ABG pH 7.446 ABG pCO2 46.3 H ABG pO2 100.8 H ABG PO2/FiO2 Ratio 4.20 ABG HCO3 31.2 H ABG O2 Saturation 97.8 ABG O2 Content 10.9 L ABG Base Excess 6.4 A-a Gradient 15.2 Oxyhemoglobin 95.0 Total Hemoglobin 8.0 L O2 Delivery Device Nasal cannula O2 Liters/Min 1.0 FiO2 24 Sodium Potassium Chloride Carbon Dioxide Anion Gap BUN Creatinine Estim Creat Clear Calc Estimated GFR Glucose Lactic Acid Calcium Magnesium Total Bilirubin AST ALT Alkaline Phosphatase Total Creatine Kinase Troponin I C-Reactive Protein NT-Pro-B Natriuret Pep Total Protein Albumin 3.1 L Lipase 19 L Procalcitonin Urine Color Yellow Urine Appearance Cloudy H Urine pH 5.0 Ur Specific [place] 1.013 Urine Protein 1+ H Urine Glucose (UA) Negative Urine Ketones Negative Ur Blood (Man) Negative Urine Nitrate Negative Urine Bilirubin Negative Urine Urobilinogen 0.2 Leukocyte Esterase Rfl Negative Urine RBC 21-50 H Urine WBC 0-5 Ur Squamous Epith Cells Few Urine Bacteria None seen Urine Casts >20 Urine Yeast (Budding) Present H Nasal MRSA (PCR) Not detected Influenza A (RT-PCR) Influenza B (RT-PCR) RSV (RT-PCR) SARS-CoV-2 RNA (RT-PCR) 08/25/24 08/25/24 08/26/24 19:56 21:07 01:52 WBC 10.7 H RBC 3.08 L Hgb 7.7 L Hct 25.0 L MCV 81.2 MCH 25.0 L MCHC 30.8 L RDW 19.0 H Plt Count 245 MPV 10.7 H Immature Gran % (Auto) 0.5 Neut % (Auto) 87.6 H Lymph % (Auto) 4.8 L [place] % (Auto) 6.9 Eos % (Auto) 0.0 Baso % (Auto) 0.2 Lymph # (Auto) 0.51 L [place] # (Auto) 0.7 H Eos # (Auto) 0.0 Baso # (Auto) 0.0 Abs Immat Gran (auto) 0.05 H Absolute Neuts (auto) 9.4 H Absolute Nucleated RBC 0.000 Nucleated RBC % 0.0 Platelet Estimate Adequate Hypochromasia 1+ Anisocytosis 1+ Schistocytes None seen ESR PT INR APTT Puncture Site ABG pH ABG pCO2 ABG pO2 ABG PO2/FiO2 Ratio ABG HCO3 ABG O2 Saturation ABG O2 Content ABG Base Excess A-a Gradient Oxyhemoglobin Total Hemoglobin O2 Delivery Device O2 Liters/Min FiO2 Sodium 143 Potassium 2.4 L* Chloride 100 Carbon Dioxide 36 H Anion Gap 7 BUN 134 H D Creatinine 2.50 H Estim Creat Clear Calc 18 Estimated GFR 19 L Glucose 143 H Lactic Acid Calcium 8.5 Magnesium 1.7 Total Bilirubin 0.9 AST 21 ALT 15 Alkaline Phosphatase 73 Total Creatine Kinase Troponin I 0.633 H* C-Reactive Protein NT-Pro-B Natriuret Pep Total Protein 6.0 L Albumin 2.9 L Lipase Procalcitonin 2.3 Urine Color Urine Appearance Urine pH Ur Specific [place] Urine Protein Urine Glucose (UA) Urine Ketones Ur Blood (Man) Urine Nitrate Urine Bilirubin Urine Urobilinogen Leukocyte Esterase Rfl Urine RBC Urine WBC Ur Squamous Epith Cells Urine Bacteria Urine Casts Urine Yeast (Budding) Nasal MRSA (PCR) Influenza A (RT-PCR) Negative Influenza B (RT-PCR) Negative RSV (RT-PCR) Negative SARS-CoV-2 RNA (RT-PCR) Negative 08/26/24 07:57 WBC RBC Hgb Hct MCV MCH MCHC RDW Plt Count MPV Immature Gran % (Auto) Neut % (Auto) Lymph % (Auto) [place] % (Auto) Eos % (Auto) Baso % (Auto) Lymph # (Auto) [place] # (Auto) Eos # (Auto) Baso # (Auto) Abs Immat Gran (auto) Absolute Neuts (auto) Absolute Nucleated RBC Nucleated RBC % Platelet Estimate Hypochromasia Anisocytosis Schistocytes ESR PT INR APTT Puncture Site ABG pH ABG pCO2 ABG pO2 ABG PO2/FiO2 Ratio ABG HCO3 ABG O2 Saturation ABG O2 Content ABG Base Excess A-a Gradient Oxyhemoglobin Total Hemoglobin O2 Delivery Device O2 Liters/Min FiO2 Sodium 147 H Potassium 2.7 L* Chloride 102 Carbon Dioxide 35 H Anion Gap 10 BUN 138 H Creatinine 2.20 H Estim Creat Clear Calc 21 Estimated GFR 22 L Glucose 109 Lactic Acid Calcium 8.7 Magnesium 1.8 Total Bilirubin AST ALT Alkaline Phosphatase Total Creatine Kinase Troponin I C-Reactive Protein NT-Pro-B Natriuret Pep Total Protein Albumin Lipase Procalcitonin Urine Color Urine Appearance Urine pH Ur Specific [place] Urine Protein Urine Glucose (UA) Urine Ketones Ur Blood (Man) Urine Nitrate Urine Bilirubin Urine Urobilinogen Leukocyte Esterase Rfl Urine RBC Urine WBC Ur Squamous Epith Cells Urine Bacteria Urine Casts Urine Yeast (Budding) Nasal MRSA (PCR) Influenza A (RT-PCR) Influenza B (RT-PCR) RSV (RT-PCR) SARS-CoV-2 RNA (RT-PCR) Quality VTE Prophylaxis VTE prophylaxis: pharmacologic ordered (Heparin 5000 units subQ q.12 hours)
--- NOTE | 2024-08-26 10:07 | PM.CNGS ---
Assessment and Plan Assessment and plan (1) Ulcer of left heel: Code(s): L97.429 - Non-pressure chronic ulcer of left heel and midfoot with unspecified severity Status: Acute Assessment and Plan: Stage IV left heel pressure ulcer that appears stable at this time. There are a few small areas of superficial necrotic tissue and slough in the wound bed, but no purulent drainage or signs of active infection. We would agree with initiating local wound care with Santyl dressing changes for enzymatic debridement. I have also ordered waffle boots and discussed the importance of reducing pressure to her wounds with the nursing staff. She also has edema to bilateral lower extremities and will need her legs elevated while at rest. No indication for urgent surgical intervention at this time. (2) Ulcer of right leg: Code(s): L97.919 - Non-pressure chronic ulcer of unspecified part of right lower leg with unspecified severity Status: Acute Assessment and Plan: Right lower lateral leg ulcer has a dark eschar overlying the wound, but appears to be superficial. This appears to be a pressure wound as it is in an area that is dependent with the way her leg lies on the bed. This does not appear infected at this time. We would agree with initiating local wound care with Santyl dressing changes for enzymatic debridement. We will continue to monitor. There is no indication for surgical debridement at this time, but discussed with the patient that this could be required in the future depending on how the wound progresses. I have spoke with nursing regarding trying to reduce pressure in this area. It is a difficult area to keep off the bed with how her leg is position, but they will try to keep a pillow under her right knee and apply waffle boots. (3) Sepsis: Qualifiers: Sepsis type: sepsis due to unspecified organism Sepsis acute organ dysfunction status: with acute organ dysfunction Severe sepsis acute organ dysfunction type: acute renal failure Acute renal failure type: unspecified Severe sepsis shock status: without septic shock Qualified Code(s): A41.9 - Sepsis, unspecified organism; R65.20 - Severe sepsis without septic shock; N17.9 - Acute kidney failure, unspecified Code(s): A41.9 - Sepsis, unspecified organism Status: Acute Assessment and Plan: Concerns for possible sepsis causing her hypotension on admission. White blood cell count was 12,000 and is down to 10,000 today. She is currently on broad-spectrum IV antibiotics. Blood cultures were drawn. See plan above regarding her wounds. (4) Metabolic encephalopathy: Code(s): G93.41 - Metabolic encephalopathy Status: Acute (5) Acute on chronic renal failure: Qualifiers: Acute renal failure type: unspecified Chronic kidney disease stage: stage 4 (severe) Qualified Code(s): N17.9 - Acute kidney failure, unspecified; N18.4 - Chronic kidney disease, stage 4 (severe) Code(s): N17.9 - Acute kidney failure, unspecified; N18.9 - Chronic kidney disease, unspecified Status: Acute (6) Peripheral artery disease: Code(s): I73.9 - Peripheral vascular disease, unspecified Status: Acute Assessment and Plan: ABIs during her last hospitalization showed moderately decreased ABIs consistent with arterial occlusive disease. This can contribute to poor healing with her lower extremity ulcers. There is no reason for any acute transfer, but she may benefit from outpatient referral to vascular surgery if she continues to have healing complications. (7) Vaginal candidiasis: Code(s): B37.31 - Acute candidiasis of vulva and vagina Status: Acute Assessment and Plan: UA positive for yeast and vaginal exam in the ED was consistent with vaginal candidiasis. Currently on fluconazole IV. (8) Elevated troponin: Code(s): R79.89 - Other specified abnormal findings of blood chemistry Status: Acute (9) Cardiomyopathy: Qualifiers: Cardiomyopathy type: ischemic Qualified Code(s): I25.5 - Ischemic cardiomyopathy Code(s): I42.9 - Cardiomyopathy, unspecified Status: Acute (10) Chronic obstructive pulmonary disease: Code(s): J44.9 - Chronic obstructive pulmonary disease, unspecified Status: Chronic (11) Paroxysmal atrial fibrillation: Code(s): I48.0 - Paroxysmal atrial fibrillation Status: Acute (12) Tobacco dependence: Code(s): F17.200 - Nicotine dependence, unspecified, uncomplicated Status: Acute Assessment and Plan: Encouraged cessation (13) Aortic stenosis: Code(s): I35.0 - Nonrheumatic aortic (valve) stenosis Status: Acute Assessment and Plan: Mild aortic valve stenosis on most recent echocardiogram on 08/10/2024. Plan I have discussed the patient's case and plan of care with Dr. Sneed. Thank you for allowing us to see the patient in consultation and we will continue to follow along with you. History of Present Illness Consult details Consult date: 08/26/24 Reason for consult: other (Left heel ulcer) Requesting physician: Tin Camejo PA-C Narrative: This is a 74-year-old woman multiple medical problems, who we have been asked to see in surgical consultation for a left heel ulcer. She is known to our service from a recent hospitalization from 08/07/2024 through 08/15/2024 for septic shock, UTI, acute on chronic renal failure, and a gangrenous left foot ulcer. She underwent surgical debridement of stage IV left heel ulcer on 08/09/2024. She was eventually discharged home with her with Santyl dressing changes and scheduled to follow up in the [facility] with Dr. Sneed. She then canceled her appointment because she did not want to go. There were issues with getting Santyl at the pharmacy and they had to switch to silver gel dressing changes. She was brought back to the ER via EMS yesterday for evaluation of altered mental status. She is alert and oriented x3 for me, but is unable to give any meaningful history. Per the EMR, she was unable to get out of bed for 2 days. On arrival to the hospital, she was hypotensive and fluid resuscitated in the ER. Labs showed a white blood cell count of 12,300 and lactic acid 1.4. Her BUN had increased significantly to 151 compared to her renal function on discharge. Creatinine up to 2.5. She also was found to have severe hypokalemia with potassium of 2.5, which has been replaced with KCL and continues to be monitored by the hospitalist. Head CT negative for any acute abnormalities. Her wounds re-evaluate in the ER and she had a wound on her right lateral lower leg and left heel. X-rays of the right tibia/fibula were negative for any evidence of osteomyelitis. Left foot x-ray showed prominent soft tissue ulcer at the posterior heel with suggestion of possible calcaneal exposure, soft tissue swelling, and prominent osteopenia. Blood pressure did improve after receiving IV fluids and she was admitted to the IMU. She is now seen in the IMU with no family at the bedside. Wound care was consulted and recommends continuing Santyl dressing changes. Her white blood cell count is down to 10,000 today. Her only specific complaint at the time of my exam is pain at her right lower leg wound. Review of Systems Review of Systems: ROS unobtainable: Yes unobtainable due to mental status [facility] Past Medical History Medical History Acute non-ST elevation myocardial infarction (NSTEMI) Anemia Aortic stenosis Atrial fibrillation with rapid ventricular response CAD (coronary artery disease) Cardiomyopathy Ejection fraction as low as 10 to 15%, EF was 36% after ICD insertion, with most recent EF July 2024 50-55% with hypokinesis basal inferior and inferior septum, right ventricular chamber mildly enlarged right ventricular systolic function reduced, mild aortic valve stenosis with peak velocity 222, me gradient 9 valve area 1.6 no stenosis of bioprosthetic mitral valve mild periventricular mitral valve regurgitation trace tricuspid valve regurgitation mild pulmonary hypertension RVSP of 48 Chronic kidney disease Chronic obstructive pulmonary disease Congestive heart failure Contraindication to anticoagulation therapy Secondary to GI bleed. Status post left atrial appendage ligation. Coronary artery disease Status post 2 vessel bypass. Depression GI bleed Gout History of placement of internal cardiac defibrillator Hyperlipidemia Kidney stones LBBB (left bundle branch block) Nephrolithiasis Nocturnal hypoxia Paroxysmal atrial fibrillation Psoriasis Subcapital fracture of right hip Tobacco dependence Surgical History Surgical History H/O two vessel coronary artery bypass graft (04/2021) History of appendectomy History of coronary artery stent placement History of hip surgery (08/2022) ORIF for fracture History of mitral valve replacement with bioprosthetic valve History of tricuspid valve repair History of tubal ligation History of two vessel coronary artery bypass graft Status post implantation of automatic cardioverter/defibrillator (AICD) Status post ligation of left atrial appendage Family History Family History Father Cancer Mother Acute myocardial infarction Congestive heart failure Son Diabetes mellitus Sibling Chronic obstructive pulmonary disease Social History Social History Social History: The patient lives with her and 1 of their sons in [place]. She has 2 other sons that live nearby. She smoked up to 3 packs of cigarettes a day at 1 time but she is down to about half a pack a day. She has smoked for 50 years. She denies alcohol and illicit substance use. Prior to COVID-19 the patient was working for the [employer]. Code status: DNR/DNI (patient voiced desire to change code status 02/2024) Surrogate decision maker: Adiel Rangel () Smoking packs per day: 1 Smoking cigarettes per day: 20.0 Years smoked: 50 Smoking pack-years: 50.00 Smoking status: Current every day smoker Tobacco type: cigarettes Second hand tobacco smoke exposure: Yes Alcohol intake: never Substance use: never Do You Feel Safe in your Home?: Yes Lack of Transportation: No Lack of Food: Never True Current Housing: I Have Housing Concerned About Future Housing: No Difficulty Paying Gas/Electric Bills: No Difficulty Paying for Meds: No Currently Unemployed: No Education: High School Diploma/GED Difficulty w/ Childcare or Family Care: No Living arrangements: with family Gender identity (if verbalized by the patient): Female Spiritual care concerns: No Meds Home Medications and Allergies Home Medications Medication Instructions Recorded Confirmed Type aspirin 325 mg tablet 325 mg PO DAILY 07/09/21 08/25/24 History amiodarone 200 mg tablet (Pacerone) 200 mg PO DAILY 09/28/21 08/25/24 History albuterol sulfate 90 mcg/actuation 2 inh inhalation Q4H PRN shortness 02/08/24 08/25/24 Rx aerosol inhaler of breath or wheezing #8.5 grams levothyroxine 75 mcg tablet 75 mcg PO DAILY 03/20/24 08/25/24 History bumetanide 1 mg tablet 2 mg PO DAILY #60 tabs 03/29/24 08/25/24 Rx sacubitril 49 mg-valsartan 51 mg 0.5 tablet PO Q12HR #30 tabs 04/10/24 08/25/24 Rx tablet (Entresto) metolazone 2.5 mg tablet 2.5 mg PO DAILY 04/24/24 08/25/24 History allopurinol 100 mg tablet 50 mg PO Q48H #30 tabs 05/29/24 08/25/24 Rx gabapentin 100 mg capsule 200 mg PO BID #120 caps 07/17/24 08/25/24 Rx amoxicillin 500 mg-potassium 1 tablet PO Q12HR #20 tabs 08/15/24 08/25/24 Rx clavulanate 125 mg tablet (Augmentin) doxycycline hyclate 100 mg tablet 100 mg PO Q12HR #20 tabs 08/15/24 08/25/24 Rx ferrous sulfate 325 mg (65 mg 325 mg PO BID #60 tabs 08/15/24 08/25/24 Rx iron) tablet midodrine 10 mg tablet 10 mg PO TID #90 tabs 08/15/24 08/25/24 Rx umeclidinium 62.5 mcg/actuation 1 inh inhalation DAILYRT #30 ea 08/15/24 08/25/24 Rx blister powder for inhalation (Incruse Ellipta) Allergies Allergy/AdvReac Type Severity Reaction Status Date / Time No Known Allergies Allergy Verified 08/25/24 17:12 Vital Signs Vital Signs - 24 hr 08/25/24 16:05 08/25/24 16:21 08/25/24 16:32 Temperature 98.4 F Pulse Rate 83 87 82 Respiratory Rate 20 21 H 24 H Blood Pressure 93/49 L 93/49 L 94/55 L Pulse Oximetry 96 98 100 Oxygen Delivery Nasal Cannula Oxygen Flow Rate 2 08/25/24 16:47 08/25/24 17:00 08/25/24 17:02 Temperature Pulse Rate 80 77 84 Respiratory Rate 20 15 24 H Blood Pressure 103/42 L 100/48 L Pulse Oximetry 100 Oxygen Delivery Oxygen Flow Rate 08/25/24 17:15 08/25/24 17:30 08/25/24 17:32 Temperature Pulse Rate 75 74 74 Respiratory Rate 20 18 18 Blood Pressure 99/45 L Pulse Oximetry 100 99 100 Oxygen Delivery Oxygen Flow Rate 08/25/24 17:45 08/25/24 17:47 08/25/24 18:15 Temperature Pulse Rate 74 74 74 Respiratory Rate 15 18 18 Blood Pressure 94/30 L Pulse Oximetry 100 Oxygen Delivery Oxygen Flow Rate 08/25/24 18:30 08/25/24 18:31 08/25/24 18:47 Temperature Pulse Rate 73 73 73 Respiratory Rate 19 19 19 Blood Pressure 99/51 L 89/71 L Pulse Oximetry 100 100 100 Oxygen Delivery Oxygen Flow Rate 08/25/24 18:48 08/25/24 19:00 08/25/24 19:02 Temperature Pulse Rate 73 73 73 Respiratory Rate 18 25 H 22 H Blood Pressure 88/72 L Pulse Oximetry 100 Oxygen Delivery Oxygen Flow Rate 08/25/24 19:15 08/25/24 19:17 08/25/24 19:30 Temperature Pulse Rate 73 74 73 Respiratory Rate 17 26 H 22 H Blood Pressure 90/50 L Pulse Oximetry 100 100 98 Oxygen Delivery Oxygen Flow Rate 08/25/24 19:45 08/25/24 19:46 08/25/24 19:47 Temperature 97.9 F Pulse Rate 73 73 73 Respiratory Rate 18 20 18 Blood Pressure 93/81 L Pulse Oximetry 100 100 100 Oxygen Delivery Oxygen Flow Rate 08/25/24 20:00 08/25/24 20:02 08/25/24 20:15 Temperature 97.3 F L 97.2 F L 97.1 F L Pulse Rate 72 72 70 Respiratory Rate 19 17 20 Blood Pressure 97/42 L Pulse Oximetry 98 99 100 Oxygen Delivery Oxygen Flow Rate 08/25/24 20:30 08/25/24 20:31 08/25/24 20:45 Temperature 97.0 F L 96.9 F L 96.9 F L Pulse Rate 70 70 71 Respiratory Rate 16 14 15 Blood Pressure 94/51 L Pulse Oximetry Oxygen Delivery Oxygen Flow Rate 08/25/24 20:47 08/25/24 21:00 08/25/24 21:08 Temperature 96.9 F L 96.8 F L 96.9 F L Pulse Rate 71 70 70 Respiratory Rate 13 18 19 Blood Pressure 98/55 L 109/44 L Pulse Oximetry 100 100 Oxygen Delivery Oxygen Flow Rate 08/25/24 21:15 08/25/24 21:16 08/25/24 21:17 Temperature 96.8 F L 96.8 F L 96.8 F L Pulse Rate 69 72 69 Respiratory Rate 17 18 18 Blood Pressure 106/47 L 111/51 L Pulse Oximetry 100 100 100 Oxygen Delivery Oxygen Flow Rate 08/25/24 21:30 08/25/24 21:32 08/25/24 22:20 Temperature 96.8 F L 96.8 F L 97.8 F Pulse Rate 68 68 68 Respiratory Rate 21 H 22 H 22 H Blood Pressure 107/43 L 123/90 Pulse Oximetry 99 Oxygen Delivery Oxygen Flow Rate 08/25/24 22:59 08/25/24 23:49 08/26/24 00:00 Temperature 97.7 F Pulse Rate 66 66 64 Respiratory Rate 22 H 20 Blood Pressure 99/38 L Pulse Oximetry 99 99 Oxygen Delivery Nasal Cannula Oxygen Flow Rate 3 08/26/24 02:00 08/26/24 04:00 08/26/24 04:41 Temperature 97.9 F Pulse Rate 66 66 66 Respiratory Rate 20 20 Blood Pressure 107/43 L Pulse Oximetry 99 96 Oxygen Delivery Nasal Cannula Oxygen Flow Rate 3 08/26/24 04:00 08/26/24 06:00 08/26/24 06:58 Temperature Pulse Rate 64 65 63 Respiratory Rate 18 Blood Pressure Pulse Oximetry 93 Oxygen Delivery Nasal Cannula Oxygen Flow Rate 2 08/26/24 06:58 08/26/24 08:00 Temperature 97.5 F L Pulse Rate 63 64 Respiratory Rate 18 22 H Blood Pressure 114/75 Pulse Oximetry 99 Oxygen Delivery Oxygen Flow Rate Exam Const: General: comfortable and no acute distress Nutritional Appearance: overweight Orientation/consciousness: patient oriented x3 HENMT: Head: normocephalic and atraumatic Ears: hearing grossly normal bilaterally Mouth: Yes moist mucous membranes Eyes: General: appearance normal, both eyes and all related structures Pupils: Equal, round and reactive pupils present Neck: Neck: normal visual inspection and full ROM Resp: Effort & Inspection: no respiratory distress Auscultation: clear to auscultation bilaterally Cardio: Rate: regular rate Rhythm: regular rhythm Heart sounds: S1 normal heart sound present and S2 normal heart sound present GI: Inspection: non-distended GI Palp: Yes Soft to palpation, No Tenderness to palpation present (GI), No Guarding due to palpation present (GI) and No Rebound tenderness present Percussion: Yes normal to percussion Auscultation: normal bowel sounds Urinary Catheter: Urinary Catheter: patent and draining Skin: General skin exam: normal color Other: Right lateral lower leg ulcer measuring 6 x 2.5 cm and appears superficial with 100% of the wound bed dark red/purple and black and mild localized pink discoloration of the skin around the border of the wound. No crepitus, no purulent drainage, and no odor. Right heel with a purple deep tissue injury measuring 5 x 6 cm, nonblanchable, all of the overlying skin is intact. Stage IV left heel ulcer measuring 4.5 x 6 x 1 cm with 60% pink and 40% yellow and mendes slough with small areas of black around the circumference of the wound. I am not able to feel any obvious bone exposed in the wound, although there is a small area of some white fibrous tissue just overlying the calcaneus in the base of the wound. No purulent drainage, no crepitus, and no foul odor. Neuro: General: moves all extremities and no focal motor deficits Speech: normal speech Motor exam (neuro): Other motor observations present (generalized weakness equal bilaterally) Extrem: General: edema bilateral (3+ pitting edema to lower extremities) Right lower extremity: foot Details: vascular exam Details: dorsalis pedis pulse present (Palpable but weak), posterior tibial pulse present (Palpable but weak) and normal capillary refill Left lower extremity: foot Details: normal capillary refill and vascular exam Details: dorsalis pedis pulse present (Palpable but weak) and posterior tibial pulse present (Palpable but weak) Psych: Mental Status: mental status grossly normal Attitude: cooperative Results Labs 08/26/24 01:52 08/26/24 07:57 Labs: Abnormal lab results 08/25/24 08/25/24 08/25/24 Range/Units 16:38 17:06 21:07 WBC 12.3 H (4.5-10.0) K/mm3 RBC 3.21 L (4.2-5.4) M/mm3 Hgb 8.1 L (12.0-15.0) g/dL Hct 25.7 L (37.0-47.0) % MCH 25.2 L (26-34) pg MCHC 31.5 L (32-36) g/dl RDW 19.0 H (11.5-14.5) % MPV 11.3 H (7.4-10.4) fl Immature Gran % (Auto) 0.8 H (0-0.5) % Neut % (Auto) 91.7 H (45.5-73.1) % Lymph % (Auto) 2.8 L (18.3-44.2) % Lymph # (Auto) 0.34 L (0.9-3.2) K/mm3 [place] # (Auto) (0.1-0.6) K/mm3 Abs Immat Gran (auto) 0.10 H (0.00-0.031) K/mm3 Absolute Neuts (auto) 11.3 H (1.3-6.7) K/mm3 ESR > 140 H (0-20) mm/hr PT 18.3 H (11.1-14.7) Seconds APTT 37.0 H (22.3-36.8) Seconds ABG pCO2 46.3 H (35.0-45.0) mmHg ABG pO2 100.8 H (80.0-100.0) mmHg ABG HCO3 31.2 H (22.0-26.0) mEq/l ABG O2 Content 10.9 L (16.0-22.0) %vol Total Hemoglobin 8.0 L (12.0-18.0) g/dL Sodium (137-145) mmol/L Potassium 2.5 L* (3.4-5.0) mmol/L Chloride 96 L (98-107) mmol/L Carbon Dioxide 33 H (22-30) mmol/L Anion Gap 13 H (4-12) mmol/L BUN 151 H D (7-17) mg/dL Creatinine 2.60 H (0.7-1.0) mg/dL Estimated GFR 18 L (59 - ) Glucose 164 H (65-110) mg/dL Troponin I 0.617 H* 0.633 H* (0.000-0.034) ng/mL C-Reactive Protein 33.5 H (<1.0) mg/dL NT-Pro-B Natriuret Pep > 57962 H (19.9-100) pg/mL Total Protein (6.3-8.2) g/dL Albumin 3.1 L (3.5-5.1) g/dL Lipase 19 L (23-300) U/L Urine Appearance Cloudy H (Clear) Urine Protein 1+ H (Negative) mg/dL Urine RBC 21-50 H (0-2) /hpf Urine Yeast (Budding) Present H (None) /hpf 08/26/24 08/26/24 Range/Units 01:52 07:57 WBC 10.7 H (4.5-10.0) K/mm3 RBC 3.08 L (4.2-5.4) M/mm3 Hgb 7.7 L (12.0-15.0) g/dL Hct 25.0 L (37.0-47.0) % MCH 25.0 L (26-34) pg MCHC 30.8 L (32-36) g/dl RDW 19.0 H (11.5-14.5) % MPV 10.7 H (7.4-10.4) fl Immature Gran % (Auto) (0-0.5) % Neut % (Auto) 87.6 H (45.5-73.1) % Lymph % (Auto) 4.8 L (18.3-44.2) % Lymph # (Auto) 0.51 L (0.9-3.2) K/mm3 [place] # (Auto) 0.7 H (0.1-0.6) K/mm3 Abs Immat Gran (auto) 0.05 H (0.00-0.031) K/mm3 Absolute Neuts (auto) 9.4 H (1.3-6.7) K/mm3 ESR (0-20) mm/hr PT (11.1-14.7) Seconds APTT (22.3-36.8) Seconds ABG pCO2 (35.0-45.0) mmHg ABG pO2 (80.0-100.0) mmHg ABG HCO3 (22.0-26.0) mEq/l ABG O2 Content (16.0-22.0) %vol Total Hemoglobin (12.0-18.0) g/dL Sodium 147 H (137-145) mmol/L Potassium 2.4 L* 2.7 L* (3.4-5.0) mmol/L Chloride (98-107) mmol/L Carbon Dioxide 36 H 35 H (22-30) mmol/L Anion Gap (4-12) mmol/L BUN 134 H D 138 H (7-17) mg/dL Creatinine 2.50 H 2.20 H (0.7-1.0) mg/dL Estimated GFR 19 L 22 L (59 - ) Glucose 143 H (65-110) mg/dL Troponin I (0.000-0.034) ng/mL C-Reactive Protein (<1.0) mg/dL NT-Pro-B Natriuret Pep (19.9-100) pg/mL Total Protein 6.0 L (6.3-8.2) g/dL Albumin 2.9 L (3.5-5.1) g/dL Lipase (23-300) U/L Urine Appearance (Clear) Urine Protein (Negative) mg/dL Urine RBC (0-2) /hpf Urine Yeast (Budding) (None) /hpf Diabetes panel 08/25/24 08/25/24 08/25/24 Range/Units 16:38 16:38 16:38 Sodium Cancelled 142 Potassium Cancelled 2.5 L* Chloride Cancelled Carbon Dioxide BUN Creatinine Glucose Calcium AST ALT Alkaline Phosphatase Total Protein Albumin 08/25/24 08/25/24 08/25/24 Range/Units 16:38 16:38 16:38 Sodium Potassium Chloride 96 L Carbon Dioxide Cancelled 33 H BUN Cancelled 151 H D Creatinine Cancelled Glucose Calcium AST ALT Alkaline Phosphatase Total Protein Albumin 08/25/24 08/25/24 08/25/24 Range/Units 16:38 16:38 16:38 Sodium Potassium Chloride Carbon Dioxide BUN Creatinine 2.60 H Glucose Cancelled 164 H Calcium Cancelled 8.4 AST Cancelled ALT Alkaline Phosphatase Total Protein Albumin 08/25/24 08/25/24 08/25/24 Range/Units 16:38 16:38 16:38 Sodium Potassium Chloride Carbon Dioxide BUN Creatinine Glucose Calcium AST 22 ALT Cancelled 16 Alkaline Phosphatase Cancelled 75 Total Protein Cancelled Albumin 08/25/24 08/25/24 08/26/24 Range/Units 16:38 16:38 01:52 Sodium 143 Potassium 2.4 L* Chloride 100 Carbon Dioxide 36 H BUN 134 H D Creatinine 2.50 H Glucose 143 H Calcium 8.5 AST 21 ALT 15 Alkaline Phosphatase 73 Total Protein 7.0 6.0 L Albumin Cancelled 3.1 L 2.9 L 08/26/24 Range/Units 07:57 Sodium 147 H Potassium 2.7 L* Chloride 102 Carbon Dioxide 35 H BUN 138 H Creatinine 2.20 H Glucose 109 Calcium 8.7 AST ALT Alkaline Phosphatase Total Protein Albumin Calcium panel 08/25/24 08/25/24 08/25/24 Range/Units 16:38 16:38 16:38 Calcium Cancelled 8.4 Albumin Cancelled 3.1 L 08/26/24 08/26/24 Range/Units 01:52 07:57 Calcium 8.5 8.7 Albumin 2.9 L Pituitary panel 08/25/24 08/25/24 08/25/24 Range/Units 16:38 16:38 16:38 Sodium Cancelled 142 Potassium Cancelled 2.5 L* Chloride Cancelled Carbon Dioxide BUN Creatinine Glucose Calcium 10/08/25/24 08/25/24 Range/Units 16:38 16:38 16:38 Sodium Potassium Chloride 96 L Carbon Dioxide Cancelled 33 H BUN Cancelled 151 H D Creatinine Cancelled Glucose Calcium 08/25/24 08/25/24 08/25/24 Range/Units 16:38 16:38 16:38 Sodium Potassium Chloride Carbon Dioxide BUN Creatinine 2.60 H Glucose Cancelled 164 H Calcium Cancelled 8.4 08/26/24 08/26/24 Range/Units 01:52 07:57 Sodium 143 147 H Potassium 2.4 L* 2.7 L* Chloride 100 102 Carbon Dioxide 36 H 35 H BUN 134 H D 138 H Creatinine 2.50 H 2.20 H Glucose 143 H 109 Calcium 8.5 8.7 Adrenal panel 08/25/24 08/25/24 08/25/24 Range/Units 16:38 16:38 16:38 Sodium Cancelled 142 Potassium Cancelled 2.5 L* Chloride Cancelled Carbon Dioxide BUN Creatinine Glucose Calcium Total Bilirubin AST ALT Alkaline Phosphatase Total Protein Albumin 08/25/24 08/25/24 08/25/24 Range/Units 16:38 16:38 16:38 Sodium Potassium Chloride 96 L Carbon Dioxide Cancelled 33 H BUN Cancelled 151 H D Creatinine Cancelled Glucose Calcium Total Bilirubin AST ALT Alkaline Phosphatase Total Protein Albumin 08/25/24 08/25/24 08/25/24 Range/Units 16:38 16:38 16:38 Sodium Potassium Chloride Carbon Dioxide BUN Creatinine 2.60 H Glucose Cancelled 164 H Calcium Cancelled 8.4 Total Bilirubin Cancelled AST ALT Alkaline Phosphatase Total Protein Albumin 08/25/24 08/25/24 08/25/24 Range/Units 16:38 16:38 16:38 Sodium Potassium Chloride Carbon Dioxide BUN Creatinine Glucose Calcium Total Bilirubin 1.1 AST Cancelled 22 ALT Cancelled 16 Alkaline Phosphatase Cancelled Total Protein Albumin 08/25/24 08/25/24 08/25/24 Range/Units 16:38 16:38 16:38 Sodium Potassium Chloride Carbon Dioxide BUN Creatinine Glucose Calcium Total Bilirubin AST ALT Alkaline Phosphatase 75 Total Protein Cancelled 7.0 Albumin Cancelled 3.1 L 08/26/24 08/26/24 Range/Units 01:52 07:57 Sodium 143 147 H Potassium 2.4 L* 2.7 L* Chloride 100 102 Carbon Dioxide 36 H 35 H BUN 134 H D 138 H Creatinine 2.50 H 2.20 H Glucose 143 H 109 Calcium 8.5 8.7 Total Bilirubin 0.9 AST 21 ALT 15 Alkaline Phosphatase 73 Total Protein 6.0 L Albumin 2.9 L All other labs normal. Imaging Additional studies: ITS Impressions Chest X-Ray 08/25/24 18:10 IMPRESSION: Cardiomegaly, pulmonary vascular congestion and redistribution, consistent with mild congestive heart failure, mildly improved since 08/15/2024 Aortic atherosclerosis Left triple lead pacemaker Postoperative changes Foot X-Ray 08/25/24 18:30 IMPRESSION: Very prominent soft tissue ulcer at the posterior heel, with suggestion of calcaneal exposure Soft tissue swelling Prominent osteopenia; this may obscure fracture or bone destruction. If there is concern for osteomyelitis, consider three-phase radionuclide bone scan. Tibia/Fibula X-Ray 08/25/24 18:35 IMPRESSION: Osteopenia Soft tissue swelling Arterial calcifications Head CT 08/25/24 18:43 IMPRESSION: Cerebral atherosclerosis and chronic small vessel ischemic changes of the cerebral white matter Small chronic right frontal probable cerebrovascular accident No acute intracranial finding or hemorrhage
[2024-08-26] MEDS: HEPARIN SODIUM 5,000 UNITS/ML VIAL 5000 UNITS SUB-Q ×2 (10:16→20:58)
[2024-08-26] MEDS: ASPIRIN 325 MG TABLET PO (10:17)
[2024-08-26] MEDS: POTASSIUM CHLORIDE 20 MEQ ER TABLET 40 MEQ PO ×4 (10:17→20:58)
[2024-08-26] MEDS: allopurinoL 50 MG TABLET PO (10:17)
--- NOTE | 2024-08-26 10:54 | PCSTNOTE ---
Please refer to the Bedside Swallow Evaluation in the EMR. Please note, silent aspiration cannot be ruled out at bedside.
--- NOTE | 2024-08-26 11:15 | P.CONNP_ITS ---
Assessment and Plan Assessment and plan (1) Chronic kidney disease, stage 4 (severe): Code(s): N18.4 - Chronic kidney disease, stage 4 (severe) Status: Chronic Assessment and Plan: * baseline creatinine runs ~ 1.7 - 2.2mg/dl * appears close to baseline by recent labs (although was elevated to 2.6mg/dl on admission) * however, her BUN is quite elevated above her baseline...(see #2) * based on outpatient evaluation, thought to be secondary to previous HTN and chronic prerenal azotemia from her CHF/cardiomyopathy with ongoing need for diuretic therapy (2) Azotemia: Code(s): R79.89 - Other specified abnormal findings of blood chemistry Status: Acute Assessment and Plan: * BUN is quite elevated as noted since admission * suspect multifactorial: * previous steroid use on last hospitalization * use of doxycyline (tetracycline antibiotics have been known to do this) * prerenal factors (volume depletion/diminished oral intake) * ongoing diuretic therapy * inflammation (new infection?) * agree with holding diuretics/Entresto for now * interstingly, did improve with IVF boluses on admission * suspect a contributing component to confusion * if this fails to improve with conservative therapy, dialysis is a consideration... * consider trial of further IVFs if respiratory status tolerates... * follow trend of repeat labs (3) Hypotension: Qualifiers: Hypotension type: hypotension due to hypovolemia Qualified Code(s): E86.1 - Hypovolemia Code(s): I95.9 - Hypotension, unspecified Status: Acute Assessment and Plan: * has a chronic component at baseline * started on midodrine on last hospitalization * midodrine on hold since BP holding stable * follow trend of hemodynamics (4) Metabolic encephalopathy: Code(s): G93.41 - Metabolic encephalopathy Status: Acute Assessment and Plan: * due to uremia/azotemia +/- infection (?) * seems better now * CT of head negative for any acute findings (5) Cardiomyopathy: Qualifiers: Cardiomyopathy type: ischemic Qualified Code(s): I25.5 - Ischemic cardiomyopathy Code(s): I42.9 - Cardiomyopathy, unspecified Status: Acute Assessment and Plan: * known history * however. recent echo with improved EF to 55% * follow volume status closely * Cardiology consulted (6) Ulcer of left heel: Code(s): L97.429 - Non-pressure chronic ulcer of left heel and midfoot with unspecified severity Status: Acute Assessment and Plan: * s/p intervention on last hospitalization * General Surgery following * no intervention needed at this time * local wound care I will continue to follow the patient with you while she remains hospitalized and make further recommendations as deemed necessary. Thank you for allowing me to participate in the care of this patient. History of Present Illness Reason for Consult Consult date: 08/26/24 Reason for consult: chronic renal failure Chief Complaint Chief complaint: hypotension,L heel ulcer, uremia, AMS History of Present Illness Narrative: The patient is a 74-year-old female with extensive past medical history as outlined below who presented to [facility] Emergency Room via EMS due to altered mental status and generalized weakness. The patient was just recently hospitalized here in early July for sepsis and septic shock thought to be secondary to her lower extremity foot wounds that required a short stay in the ICU with vasopressor therapy and subsequent surgical intervention/debridement of her wounds. She was eventually weaned off vasopressor therapy but had to be initiated on midodrine therapy to maintain her blood pressure. She recovered sufficiently from that acute illness and was eventually discharged home on oral antibiotics. Apparently, since she has been home, her is noted that her mentation has been fluctuating and more concerning is that she has been unable to ambulate or get out of bed. As the symptoms seemed to persist for last 2 or 3 days, he called EMS and she was eventually transported to the emergency room. On arrival to the ER, the patient was noted be hypotensive with a systolic BP in the mid 80s to low 90s. There is also concern for possible dehydration as she had dry cracked lips in association with dry mucous membranes. She was awake and alert to person place but had difficulty with the month. She denies any acute complaints with regard to pain, nausea, vomiting, diarrhea, dizziness, lightheadedness, or palpitations. While in the ER, she received several fluid boluses as there was caution with IV fluids given her known history of CHF/cardiomyopathy. Her blood pressure did improve and was running in the low 100 systolic following these fluid boluses. Subsequent workup and evaluation included CT scan of the head which was negative for any acute intracranial process, routine blood test that were significant for her known history of chronic kidney disease with her creatinine only mildly elevated above baseline but her BUN markedly elevated in comparison to her baseline with a reading of 151. Her CBC was remarkable only for a mild leukocytosis and relative anemia as well. Given her laboratory abnormalities and her apparent altered mentation, appropriate cultures were obtained and she was empirically started on broad- spectrum antibiotics and subsequent admitted to the hospital for further evaluation therapy. Since her admission, her blood pressure has remained better with holding her diuretics and cardiac medications and her BUN and creatinine have improved to some degree as well. She still does not feel ?very good and ?but is difficult for her to elaborate on what she means. Renal consultation was requested due to her chronic kidney disease and signif icant azotemia/elevated BUN. The patient normally follows with Dr. Steven Fu in clinic for management of her chronic kidney disease. Her baseline creatinine has fluctuated recently but usually runs around 1.7 - 2.2 mg/dL which correlates to chronic kidney disease stage 4. It is felt that her underlying chronic kidney disease is due to her previous hypertension and chronic prerenal azotemia from her congestive heart failure/cardiomyopathy likely worsened by the need for chronic diuretic therapy at baseline. Her creatinine on admission was relatively close to her baseline but as already mentioned above, her BUN was markedly elevated in comparison to her baseline. There is some concern that her high BUN may be leading to uremia which in turn is affecting her altered mentation. Currently, at the time my evaluation, she does not appear to be in acute distress.. Review of Systems Review of Systems: As per HPI. [facility] Past Medical History Medical History Acute non-ST elevation myocardial infarction (NSTEMI) Anemia Aortic stenosis Atrial fibrillation with rapid ventricular response CAD (coronary artery disease) Cardiomyopathy Ejection fraction as low as 10 to 15%, EF was 36% after ICD insertion, with most recent EF July 2024 50-55% with hypokinesis basal inferior and inferior septum, right ventricular chamber mildly enlarged right ventricular systolic function reduced, mild aortic valve stenosis with peak velocity 222, me gradient 9 valve area 1.6 no stenosis of bioprosthetic mitral valve mild periventricular mitral valve regurgitation trace tricuspid valve regurgitation mild pulmonary hypertension RVSP of 48 Chronic kidney disease Chronic obstructive pulmonary disease Congestive heart failure Contraindication to anticoagulation therapy Secondary to GI bleed. Status post left atrial appendage ligation. Coronary artery disease Status post 2 vessel bypass. Depression GI bleed Gout History of placement of internal cardiac defibrillator Hyperlipidemia Kidney stones LBBB (left bundle branch block) Nephrolithiasis Nocturnal hypoxia Paroxysmal atrial fibrillation Psoriasis Subcapital fracture of right hip Tobacco dependence Surgical History Surgical History H/O two vessel coronary artery bypass graft (04/2021) History of appendectomy History of coronary artery stent placement History of hip surgery (08/2022) ORIF for fracture History of mitral valve replacement with bioprosthetic valve History of tricuspid valve repair History of tubal ligation History of two vessel coronary artery bypass graft Status post implantation of automatic cardioverter/defibrillator (AICD) Status post ligation of left atrial appendage Family History Family History Father Cancer Mother Acute myocardial infarction Congestive heart failure Son Diabetes mellitus Sibling Chronic obstructive pulmonary disease Social History Social History Social History: The patient lives with her and 1 of their sons in [place]. She has 2 other sons that live nearby. She smoked up to 3 packs of cigarettes a day at 1 time but she is down to about half a pack a day. She has smoked for 50 years. She denies alcohol and illicit substance use. Prior to COVID-19 the patient was working for the [employer]. Code status: DNR/DNI (patient voiced desire to change code status 02/2024) Surrogate decision maker: Adiel Rangel () Smoking packs per day: 1 Smoking cigarettes per day: 20.0 Years smoked: 50 Smoking pack-years: 50.00 Smoking status: Current every day smoker Tobacco type: cigarettes Second hand tobacco smoke exposure: Yes Alcohol intake: never Substance use: never Do You Feel Safe in your Home?: Yes Lack of Transportation: No Lack of Food: Never True Current Housing: I Have Housing Concerned About Future Housing: No Difficulty Paying Gas/Electric Bills: No Difficulty Paying for Meds: No Currently Unemployed: No Education: High School Diploma/GED Difficulty w/ Childcare or Family Care: No Living arrangements: with family Gender identity (if verbalized by the patient): Female Spiritual care concerns: No Meds Home Medications and Allergies Home Medications Medication Instructions Recorded Confirmed Type aspirin 325 mg tablet 325 mg PO DAILY 07/09/21 08/25/24 History amiodarone 200 mg tablet (Pacerone) 200 mg PO DAILY 09/28/21 08/25/24 History albuterol sulfate 90 mcg/actuation 2 inh inhalation Q4H PRN shortness 02/08/24 08/25/24 Rx aerosol inhaler of breath or wheezing #8.5 grams levothyroxine 75 mcg tablet 75 mcg PO DAILY 03/20/24 08/25/24 History bumetanide 1 mg tablet 2 mg PO DAILY #60 tabs 03/29/24 08/25/24 Rx sacubitril 49 mg-valsartan 51 mg 0.5 tablet PO Q12HR #30 tabs 04/10/24 08/25/24 Rx tablet (Entresto) metolazone 2.5 mg tablet 2.5 mg PO DAILY 04/24/24 08/25/24 History allopurinol 100 mg tablet 50 mg PO Q48H #30 tabs 05/29/24 08/25/24 Rx gabapentin 100 mg capsule 200 mg PO BID #120 caps 07/17/24 08/25/24 Rx amoxicillin 500 mg-potassium 1 tablet PO Q12HR #20 tabs 08/15/24 08/25/24 Rx clavulanate 125 mg tablet (Augmentin) doxycycline hyclate 100 mg tablet 100 mg PO Q12HR #20 tabs 08/15/24 08/25/24 Rx ferrous sulfate 325 mg (65 mg 325 mg PO BID #60 tabs 08/15/24 08/25/24 Rx iron) tablet midodrine 10 mg tablet 10 mg PO TID #90 tabs 08/15/24 08/25/24 Rx umeclidinium 62.5 mcg/actuation 1 inh inhalation DAILYRT #30 ea 08/15/24 08/25/24 Rx blister powder for inhalation (Incruse Ellipta) Allergies Allergy/AdvReac Type Severity Reaction Status Date / Time No Known Allergies Allergy Verified 08/25/24 17:12 Vital Signs Vital Signs Temp Pulse Resp BP Pulse Ox O2 Del Method O2 Flow Rate 08/26/24 10:00 64 08/26/24 08:00 65 08/26/24 08:00 97.5 F L 64 22 H 114/75 99 08/26/24 06:58 63 18 08/26/24 06:58 63 18 93 Nasal Cannula 2 08/26/24 06:00 65 08/26/24 04:00 64 08/26/24 04:41 97.9 F 66 20 107/43 L 96 08/26/24 04:00 66 20 99 Nasal Cannula 3 08/26/24 02:00 66 08/26/24 00:00 97.7 F 64 20 99/38 L 99 08/25/24 23:49 66 22 H 99 Nasal Cannula 3 08/25/24 22:59 66 08/25/24 22:20 97.8 F 68 22 H 123/90 99 08/25/24 21:32 96.8 F L 68 22 H 107/43 L 08/25/24 21:30 96.8 F L 68 21 H 08/25/24 21:17 96.8 F L 69 18 111/51 L 100 08/25/24 21:16 96.8 F L 72 18 100 08/25/24 21:15 96.8 F L 69 17 106/47 L 100 08/25/24 21:08 96.9 F L 70 19 109/44 L 100 08/25/24 21:00 96.8 F L 70 18 100 08/25/24 20:47 96.9 F L 71 13 98/55 L 08/25/24 20:45 96.9 F L 71 15 08/25/24 20:31 96.9 F L 70 14 94/51 L 08/25/24 20:30 97.0 F L 70 16 08/25/24 20:15 97.1 F L 70 20 100 08/25/24 20:02 97.2 F L 72 17 97/42 L 99 08/25/24 20:00 97.3 F L 72 19 98 08/25/24 19:47 73 18 100 08/25/24 19:46 97.9 F 73 20 93/81 L 100 08/25/24 19:45 73 18 100 08/25/24 19:30 73 22 H 98 08/25/24 19:17 74 26 H 90/50 L 100 08/25/24 19:15 73 17 100 08/25/24 19:02 73 22 H 88/72 L 08/25/24 19:00 73 25 H 08/25/24 18:48 73 18 100 08/25/24 18:47 73 19 89/71 L 100 08/25/24 18:31 73 19 99/51 L 100 08/25/24 18:30 73 19 100 Exam Narrative: GENERAL APPEARANCE: elderly but well developed well nourished female in no acute distress HEENT: normocephalic, atraumatic, normal conjunctiva and sclera, nares patient NECK: no lymphadenopathy, thyromegaly, or JVD MOUTH: normal lips, teeth, and gums CARDIOVASCULAR: RRR, normal S1 and S2, no rub RESPIRATORY: coarse and decreased at bases ABDOMEN: soft, nontender, nondistended, positive bowel sounds present EXTREMITIES: no evidence of cyanosis, clubbing, 2+ edema NEUROLOGICAL: alert and oriented x 2 - 3; CN II - XII intact bilaterally; no focal deficits noted Results Lab Results 08/28/24 06:22 08/28/24 06:22 Lab results: Most recent lab results ABG pH 7.446 (7.350-7.450) 08/25/24 17:06 ABG pCO2 46.3 mmHg (35.0-45.0) H 08/25/24 17:06 ABG pO2 100.8 mmHg (80.0-100.0) H 08/25/24 17:06 ABG HCO3 31.2 mEq/l (22.0-26.0) H 08/25/24 17:06 ABG O2 Saturation 97.8 % (95.0-100.0) 08/25/24 17:06 Calcium 8.6 mg/dL (8.4-10.2) 08/26/24 15:21 Calcium Cancelled 08/26/24 15:21 Magnesium 1.8 mg/dL (1.6-2.3) 08/26/24 07:57
[2024-08-26] MEDS: COLLAGENASE OINT 30 GM TUBE 1 APPLIC TOPICAL (12:45)
[2024-08-26] MEDS: cefTRIAXone 2 GM/NS 100 ML 2 GM/100 ML BAG IVPB (14:18)
[2024-08-26] MEDS: MIDODRINE HCL 10 MG TABLET PO ×2 (14:18→17:44)
--- NOTE | 2024-08-26 15:37 | PC.NURSE ---
Report given to Jana PARK, pt transferred to room 305-2, notified by this RN
[2024-08-26 15:55] LABS: Anion Gap 8 mmol/L (4-12); Calcium 8.6 mg/dL (8.4-10.2); Carbon Dioxide 36 mmol/L (22-30); Chloride 101 mmol/L (98-107); Estimated CRCL calculation 21 ml/min; Estimated Glomerular Filt Rate 22; Glucose 115 mg/dL (65-110); Potassium 2.9 mmol/L (3.4-5.0); Sodium 145 mmol/L (137-145)
[2024-08-26 16:06] LABS: Troponin I 0.185 ng/mL (0.000-0.034)
[2024-08-26 16:10] LABS: Blood Urea Nitrogen 134 mg/dL (7-17)
[2024-08-26 20:54] LABS: Glucose Point of Care 127 mg/dl (65-105)
[2024-08-26] MEDS: metroNIDAZOLE 500 MG TABLET PO (21:01)
[2024-08-26 22:33] LABS: Anion Gap 7 mmol/L (4-12); Calcium 8.9 mg/dL (8.4-10.2); Carbon Dioxide 35 mmol/L (22-30); Chloride 103 mmol/L (98-107); Estimated CRCL calculation 21 ml/min; Estimated Glomerular Filt Rate 22; Glucose 106 mg/dL (65-110); Potassium 3.7 mmol/L (3.4-5.0); Sodium 145 mmol/L (137-145)
[2024-08-26 23:21] LABS: Blood Urea Nitrogen 131 mg/dL (7-17)
[2024-08-27] VITALS (8 sets, daily range): BP systolic 110–113; BP diastolic 43–47; PULSE 61–73; RESP 14–20; TEMP 36.2–36.3; O2SAT 95–100; BMI 10.0
[2024-08-27] MEDS: LEVOTHYROXINE SODIUM 75 MCG TABLET PO (05:54)
[2024-08-27] MEDS: metroNIDAZOLE 500 MG TABLET PO ×3 (05:54→21:03)
[2024-08-27 07:18] LABS: Basophils Percent Auto 0.2 % (0.2-1.2); Hematocrit 25.8 % (37.0-47.0); Hemoglobin 7.7 g/dL (12.0-15.0); Immature Granulocyte Absolute 0.03 K/mm3 (0.00-0.031); Immature Granulocyte Percent A 0.3 % (0-0.5); Lymphocytes Absolute Auto 0.52 K/mm3 (0.9-3.2); Lymphocytes Percent Auto 5.1 % (18.3-44.2); Mean Corpuscular HGB Conc 29.8 g/dl (32-36); Mean Corpuscular Hemoglobin 24.7 pg (26-34); Mean Corpuscular Volume 82.7 fl (80-100); Mean Platelet Volume 11.5 fl (7.4-10.4); Monocytes Absolute Auto 0.5 K/mm3 (0.1-0.6); Monocytes Percent Auto 4.4 % (2.6-8.5); Neutrophils Absolute Auto 9.1 K/mm3 (1.3-6.7); Platelet Count Result 256 k/mm3 (150-375); Red Blood Count 3.12 M/mm3 (4.2-5.4); Red Cell Distribution Width 19.4 % (11.5-14.5); White Blood Count 10.2 K/mm3 (4.5-10.0)
[2024-08-27 07:42] LABS: Anisocytosis 1+; Hypochromasia 1+; Platelet Estimate Adequate (Adequate); Schistocytes None Seen
[2024-08-27 07:43] LABS: Alanine Aminotransferase 15 U/L (6-35); Albumin Level 2.9 g/dL (3.5-5.1); Alkaline Phosphatase 77 U/L (38-126); Anion Gap 8 mmol/L (4-12); Aspartate Amino Transferase 20 U/L (14-36); Bilirubin,Total 0.6 mg/dL (0.2-1.3); Calcium 9.2 mg/dL (8.4-10.2); Carbon Dioxide 36 mmol/L (22-30); Chloride 105 mmol/L (98-107); Estimated CRCL calculation 23 ml/min; Estimated Glomerular Filt Rate 24; Glucose 95 mg/dL (65-110); Potassium 3.9 mmol/L (3.4-5.0); Sodium 149 mmol/L (137-145)
[2024-08-27 08:00] LABS: Blood Urea Nitrogen 126 mg/dL (7-17)
[2024-08-27 08:55] LABS: Hepatitis B Surface Antigen Negative (Negative)
[2024-08-27] MEDS: cefTRIAXone 2 GM/NS 100 ML 2 GM/100 ML BAG IVPB (09:05)
[2024-08-27] MEDS: MIDODRINE HCL 10 MG TABLET PO ×3 (09:05→16:30)
[2024-08-27] MEDS: ASPIRIN 325 MG TABLET PO (09:05)
[2024-08-27] MEDS: HEPARIN SODIUM 5,000 UNITS/ML VIAL 5000 UNITS SUB-Q ×2 (09:06→21:03)
[2024-08-27] MEDS: UMECLIDINIUM BROMIDE 62.5 MCG ELLIPTA 1 PUFF INHALATION (09:10)
[2024-08-27 09:12] LABS: Hepatitis B Surface Anti Res Negative
--- NOTE | 2024-08-27 09:30 | P.PNIM_ITS ---
Progress Note: A&P Assessment and Plan (1) Acute on chronic renal failure: Qualifiers: Acute renal failure type: unspecified Chronic kidney disease stage: stage 4 (severe) Qualified Code(s): N17.9 - Acute kidney failure, unspecified; N18.4 - Chronic kidney disease, stage 4 (severe) Code(s): N17.9 - Acute kidney failure, unspecified; N18.9 - Chronic kidney disease, u nspecified Status: Acute Assessment and Plan: * Most likely multifactorial. It is certainly component of hypovolemia decreased fluid intake given the patient's clinical appearance. Patient is also on diuretic therapy and has some prerenal component due to acute on chronic hypotension. * Patient's BUN has increased markedly in this is less likely causing up component of her decreased oral intake and or confusion due to uremia. Will hold nephrotoxic medications including Entresto, Bumex and metolazone. * Consult Nephrology for further recommendations. Patient's creatinine and BUN may be at the point where she may require hemodialysis for adequate fluid management but this will be difficult given the patient's hypotension. * BUN 126, Creatinine 2.00, and GFR 24. * 2+ BLE edema. * PT/OT for strengthening. (2) Sepsis: Qualifiers: Acute renal failure type: unspecified Sepsis acute organ dysfunction status: with acute organ dysfunction Sepsis type: sepsis due to unspecified organism Severe sepsis acute organ dysfunction type: acute renal failure Severe sepsis shock status: without septic shock Qualified Code(s): A41.9 - Sepsis, unspecified organism; R65.20 - Severe sepsis without septic shock; N17.9 - Acute kidney failure, unspecified Code(s): A41.9 - Sepsis, unspecified organism Status: Acute Assessment and Plan: * The patient's hypotension could be strictly cardiac in nature versus hypovolemia but cannot rule out source of infection or sepsis. * Patient received cefepime Flagyl and vancomycin in the ER to treat for possible infected foot wound. Will switch antibiotic to Ceftriaxone 2 gm IVPB daily, change Flagyl to oral, and stop Vancomycin. * Patient was noted to have mild elevation in white count and does have some chronic wounds but they do not visually a appear to be acutely infected but given her condition this cannot completely be ruled out especially in the setting of acute increasing ESR and CRP. * She is not febrile. Blood cultures no growth to date. Procalcitonin 2.3. * WBC improved from 12.3>10.7>10.2 (3) Hypokalemia: Code(s): E87.6 - Hypokalemia Status: Acute Assessment and Plan: * Potassium 2.4>2.7>2.9>3.7>3.9 * Follow labs. (4) Hypotension: Qualifiers: Hypotension type: hypotension due to hypovolemia Qualified Code(s): E86.1 - Hypovolemia Code(s): I95.9 - Hypotension, unspecified Status: Acute Assessment and Plan: * Blood pressure 112/46 today. * Patient with 2+ BLE edema. * Midodrine 10 mg PO TID * Encourage PO intake. * Cardiology consult. (5) Decubitus ulcer of sacral area: Qualifiers: Pressure injury stage: unspecified pressure injury stage Qualified Code(s): L89.159 - Pressure ulcer of sacral region, unspecified stage Code(s): L89.159 - Pressure ulcer of sacral region, unspecified stage Status: Acute Assessment and Plan: * Wound Care consult. * Antifungal barrier cream. * Turn q 2. * Surgery following in case intervention needs done. * Chad 1 pack BID, encourage PO intake. (6) Ulcer of left heel: Code(s): L97.429 - Non-pressure chronic ulcer of left heel and midfoot with unspecified severity Status: Acute Assessment and Plan: * Santyl to wound bed to promote healing. * Waffle boots. * Surgery following in case intervention needs done. * Chad 1 pack BID, encourage PO intake. (7) Metabolic encephalopathy: Code(s): G93.41 - Metabolic encephalopathy Status: Acute Assessment and Plan: * Likely due to uremia with markedly elevated BUN above baseline. However cannot rule out some component of encephalopathy due to acute infection. (8) Chronic kidney disease, stage 4 (severe): Code(s): N18.4 - Chronic kidney disease, stage 4 (severe) Status: Chronic Assessment and Plan: * BUN 126, Creatinine 2.00, and GFR 24. Creatinine improving. * Nephrology following. (9) Elevated troponin: Code(s): R79.89 - Other specified abnormal findings of blood chemistry Status: Acute Assessment and Plan: * Trop 0.617> 0.633>0.185 * Cardiac consult. (10) Cardiomyopathy: Qualifiers: Cardiomyopathy type: ischemic Qualified Code(s): I25.5 - Ischemic cardiomyopathy Code(s): I42.9 - Cardiomyopathy, unspecified Status: Acute Assessment and Plan: * Patient's chest x-ray appears similar to prior. * After receiving 30 mL/kilos fluid bolus patient's oxygen requirement did go up from her baseline 1 L up to 3 L. the patient's BNP is markedly elevated compared to prior values. Wondering if recent initiation of midodrine may have contributed to to an acute decompensation. * The patient had recent echocardiogram earlier this month demonstrated EF that improved to 55%. With some right-sided ventricular enlargement and expected valvular abnormalities given the patient's history. * Hold Entresto,Bumex, or metolazone without discussion with both Nephrology and Cardiology. * Cardiology consult. Subjective Date/time seen: 08/27/24 09:30 Interval history: at bedside. Wound care seen yesterday. Patient reports not having a great appetite. reports that patient does not like hospital food. Patient denies chest pain, palpitations, headache, or dizziness. Reports occas ional cough. Review of Systems Review of Systems: All systems reviewed & are unremarkable except as noted in HPI and below Exam Const: General: comfortable and no acute distress Resp: Effort & Inspection: normal respiratory effort Auscultation: clear to auscultation bilaterally Cardio: Rate: regular rate Rhythm: regular rhythm Other: paced 71 GI: GI Palp: Yes Soft to palpation Auscultation: normal bowel sounds Urinary Catheter: Urinary Catheter: patent and draining (yellow) Skin: Wounds: wounds noted Other: surgical evaluation noted today Right lateral lower leg ulcer appears superficial but with 100% of the wound bed dark red/purple and black with mild localized pink discoloration of the skin around the border of the wound. No crepitus, no purulent drainage, and no odor. Unchanged from yesterday. Right heel with a purple deep tissue injury measuring 5 x 6 cm, nonblanchable, all of the overlying skin is intact. Stage IV left heel ulcer measuring 4.5 x 6 x 1 cm with more yellow and mendes slough in about 80% of the wound bed today. No purulent drainage, no crepitus, and no foul odor . Extrem: General: pedal edema bilaterally 2+ Psych: Other: Affect flat Objective Data Vital Signs Vital Signs: Vital Signs - 24 hr 08/26/24 10:00 08/26/24 12:00 08/26/24 12:00 Temperature 97.4 F L Pulse Rate 64 64 64 Respiratory Rate 24 H Blood Pressure 93/43 L Pulse Oximetry 100 Oxygen Delivery Oxygen Flow Rate 08/26/24 14:00 08/26/24 16:00 08/26/24 21:08 Temperature 96.4 F L 96.9 F L Pulse Rate 63 113 H 59 L Respiratory Rate 16 14 Blood Pressure 108/58 L 118/42 L Pulse Oximetry 100 100 Oxygen Delivery Oxygen Flow Rate 08/26/24 20:00 08/26/24 20:00 08/27/24 00:00 Temperature Pulse Rate 60 61 Respiratory Rate Blood Pressure Pulse Oximetry 100 Oxygen Delivery Nasal Cannula Oxygen Flow Rate 2 08/27/24 04:00 08/27/24 08:00 08/27/24 09:10 Temperature 97.1 F L Pulse Rate 65 71 Respiratory Rate 16 Blood Pressure 112/46 L Pulse Oximetry 98 96 Oxygen Delivery Nasal Cannula Oxygen Flow Rate 2 08/27/24 09:10 Temperature Pulse Rate 71 Respiratory Rate 20 Blood Pressure Pulse Oximetry Oxygen Delivery Oxygen Flow Rate Intake/Output Intake/Output: Intake & Output 08/24/24 08/25/24 08/26/24 08/27/24 23:59 23:59 23:59 23:59 Intake Total 3000 1195 400 Output Total 600 1200 Balance 3000 595 -800 Meds/Results Medications: Active Medications Generic Name Dose Route Start Last Admin Trade Name Freq PRN Reason Stop Dose Admin Allopurinol 50 mg 08/26/24 09:00 08/26/24 10:17 Allopurinol 50 Mg Tablet PO 50 mg Q48H MADELINE Administration Aspirin 325 mg 08/26/24 09:00 08/27/24 09:05 Aspirin 325 Mg Tablet PO 325 mg DAILY MADELINE Administration Collagenase 1 applic 08/26/24 09:00 08/26/24 12:45 Collagenase Oint 30 Gm Tube TOPICAL 1 applic QAM MADELINE Administration Fluconazole 150 mg 08/29/24 09:00 Fluconazole 150 Mg Tablet PO 09/01/24 09:01 Q72H [facility] Heparin Sodium (Porcine) 5,000 units 08/26/24 09:00 08/27/24 09:06 Heparin Sodium 5,000 Units/Ml Vial SUB-Q 5,000 units Q12HR MADELINE Administration Ceftriaxone Sodium 2 gm in 100 mls @ 200 mls/hr 08/26/24 14:00 08/27/24 09:05 Rocephin 2 Gm/Ns 100 Ml IVPB 200 mls/hr DAILY MADELINE Administration Levothyroxine Sodium 75 mcg 08/26/24 06:30 08/27/24 05:54 Levothyroxine Sodium 75 Mcg Tablet PO 75 mcg DAILY@0630 MADELINE Administration Metronidazole 500 mg 08/26/24 22:00 08/27/24 05:54 Metronidazole 500 Mg Tablet PO 500 mg Q8HR MADELINE Administration Midodrine 10 mg 08/26/24 09:00 08/27/24 09:05 Midodrine Hcl 10 Mg Tablet PO 10 mg TID MADELINE Administration Ondansetron HCl 4 mg 08/25/24 21:16 Ondansetron Inj 4 Mg/2 Ml Vial IV PUSH Q4H PRN Nausea Umeclidinium [place] 1 puff 08/26/24 08:00 08/27/24 09:10 Umeclidinium [place] 62.5 Mcg Ellipta INHALATION 1 puff DAILYRT MADELINE Administration Radiology Results: ITS Impressions Chest X-Ray 08/25/24 18:10 IMPRESSION: Cardiomegaly, pulmonary vascular congestion and redistribution, consistent with mild congestive heart failure, mildly improved since 08/15/2024 Aortic atherosclerosis Left triple lead pacemaker Postoperative changes Foot X-Ray 08/25/24 18:30 IMPRESSION: Very prominent soft tissue ulcer at the posterior heel, with suggestion of calcaneal exposure Soft tissue swelling Prominent osteopenia; this may obscure fracture or bone destruction. If there is concern for osteomyelitis, consider three-phase radionuclide bone scan. Tibia/Fibula X-Ray 08/25/24 18:35 IMPRESSION: Osteopenia Soft tissue swelling Arterial calcifications Head CT 08/25/24 18:43 IMPRESSION: Cerebral atherosclerosis and chronic small vessel ischemic changes of the cerebral white matter Small chronic right frontal probable cerebrovascular accident No acute intracranial finding or hemorrhage Labs Labs: Laboratory Results - last 24 hr 08/26/24 08/26/24 08/26/24 15:21 15:21 15:21 WBC RBC Hgb Hct MCV MCH MCHC RDW Plt Count MPV Immature Gran % (Auto) Neut % (Auto) Lymph % (Auto) [place] % (Auto) Eos % (Auto) Baso % (Auto) Lymph # (Auto) [place] # (Auto) Eos # (Auto) Baso # (Auto) Abs Immat Gran (auto) Absolute Neuts (auto) Absolute Nucleated RBC Nucleated RBC % Platelet Estimate Hypochromasia Anisocytosis Schistocytes Sodium Cancelled 145 Potassium Cancelled 2.9 L Chloride Cancelled Carbon Dioxide Anion Gap BUN Creatinine Estim Creat Clear Calc Estimated GFR Glucose POC Capillary Glucose Calcium Total Bilirubin AST ALT Alkaline Phosphatase Troponin I Total Protein Albumin TSH (Reflex) Random Cortisol Hep Bs Antigen Hep Bs Antibody 08/26/24 08/26/24 08/26/24 15:21 15:21 15:21 WBC RBC Hgb Hct MCV MCH MCHC RDW Plt Count MPV Immature Gran % (Auto) Neut % (Auto) Lymph % (Auto) [place] % (Auto) Eos % (Auto) Baso % (Auto) Lymph # (Auto) [place] # (Auto) Eos # (Auto) Baso # (Auto) Abs Immat Gran (auto) Absolute Neuts (auto) Absolute Nucleated RBC Nucleated RBC % Platelet Estimate Hypochromasia Anisocytosis Schistocytes Sodium Potassium Chloride 101 Carbon Dioxide Cancelled 36 H Anion Gap Cancelled 8 BUN Cancelled Creatinine Estim Creat Clear Calc Estimated GFR Glucose POC Capillary Glucose Calcium Total Bilirubin AST ALT Alkaline Phosphatase Troponin I Total Protein Albumin TSH (Reflex) Random Cortisol Hep Bs Antigen Hep Bs Antibody 08/26/24 08/26/24 08/26/24 15:21 15:21 15:21 WBC RBC Hgb Hct MCV MCH MCHC RDW Plt Count MPV Immature Gran % (Auto) Neut % (Auto) Lymph % (Auto) [place] % (Auto) Eos % (Auto) Baso % (Auto) Lymph # (Auto) [place] # (Auto) Eos # (Auto) Baso # (Auto) Abs Immat Gran (auto) Absolute Neuts (auto) Absolute Nucleated RBC Nucleated RBC % Platelet Estimate Hypochromasia Anisocytosis Schistocytes Sodium Potassium Chloride Carbon Dioxide Anion Gap BUN 134 H Creatinine Cancelled 2.20 H Estim Creat Clear Calc Cancelled 21 Estimated GFR Cancelled Glucose POC Capillary Glucose Calcium Total Bilirubin AST ALT Alkaline Phosphatase Troponin I Total Protein Albumin TSH (Reflex) Random Cortisol Hep Bs Antigen Hep Bs Antibody 08/26/24 08/26/24 08/26/24 15:21 15:21 15:21 WBC RBC Hgb Hct MCV MCH MCHC RDW Plt Count MPV Immature Gran % (Auto) Neut % (Auto) Lymph % (Auto) [place] % (Auto) Eos % (Auto) Baso % (Auto) Lymph # (Auto) [place] # (Auto) Eos # (Auto) Baso # (Auto) Abs Immat Gran (auto) Absolute Neuts (auto) Absolute Nucleated RBC Nucleated RBC % Platelet Estimate Hypochromasia Anisocytosis Schistocytes Sodium Potassium Chloride Carbon Dioxide Anion Gap BUN Creatinine Estim Creat Clear Calc Estimated GFR 22 L Glucose Cancelled 115 H POC Capillary Glucose Calcium Cancelled 8.6 Total Bilirubin AST ALT Alkaline Phosphatase Troponin I 0.185 H* Total Protein Albumin TSH (Reflex) Random Cortisol Hep Bs Antigen Hep Bs Antibody 08/26/24 08/26/24 08/27/24 20:03 22:09 06:45 WBC 10.2 H RBC 3.12 L Hgb 7.7 L Hct 25.8 L MCV 82.7 MCH 24.7 L MCHC 29.8 L RDW 19.4 H Plt Count 256 MPV 11.5 H Immature Gran % (Auto) 0.3 Neut % (Auto) 90.0 H Lymph % (Auto) 5.1 L [place] % (Auto) 4.4 Eos % (Auto) 0.0 Baso % (Auto) 0.2 Lymph # (Auto) 0.52 L [place] # (Auto) 0.5 Eos # (Auto) 0.0 Baso # (Auto) 0.0 Abs Immat Gran (auto) 0.03 Absolute Neuts (auto) 9.1 H Absolute Nucleated RBC 0.000 Nucleated RBC % 0.0 Platelet Estimate Adequate Hypochromasia 1+ Anisocytosis 1+ Schistocytes None seen Sodium 145 149 H Potassium 3.7 3.9 Chloride 103 105 Carbon Dioxide 35 H 36 H Anion Gap 7 8 BUN 131 H 126 H Creatinine 2.20 H 2.00 H Estim Creat Clear Calc 21 23 Estimated GFR 22 L 24 L Glucose 106 95 POC Capillary Glucose 127 H Calcium 8.9 9.2 Total Bilirubin 0.6 AST 20 ALT 15 Alkaline Phosphatase 77 Troponin I Total Protein 6.0 L Albumin 2.9 L TSH (Reflex) 5.860 H Random Cortisol 32.60 Hep Bs Antigen Negative Hep Bs Antibody Negative Quality VTE Prophylaxis VTE prophylaxis: pharmacologic ordered (Heparin 5000 units subQ q.12 hours)
--- NOTE | 2024-08-27 10:34 | PM.CNCAR ---
Assessment and Plan Assessment and plan (1) Sepsis: Qualifiers: Acute renal failure type: unspecified Sepsis acute organ dysfunction status: with acute organ dysfunction Sepsis type: sepsis due to unspecified organism Severe sepsis acute organ dysfunction type: acute renal failure Severe sepsis shock status: with septic shock Qualified Code(s): A41.9 - Sepsis, unspecified organism; R65.21 - Severe sepsis with septic shock; N17.9 - Acute kidney failure, unspecified Code(s): A41.9 - Sepsis, unspecified organism Status: Acute Assessment and Plan: Management as per primary team. (2) Acute on chronic kidney failure: Qualifiers: Acute renal failure type: unspecified Code(s): N17.9 - Acute kidney failure, unspecified; N18.9 - Chronic kidney disease, unspecified Status: Acute Assessment and Plan: Nephrology consulted. Does not need dialysis at this time. (3) Hypotension: Qualifiers: Hypotension type: hypotension due to hypovolemia Qualified Code(s): E86.1 - Hypovolemia Code(s): I95.9 - Hypotension, unspecified Status: Acute Assessment and Plan: Can continue Midodrine for now. Agree with holding Entresto, Bumex, Metolazone for now. (4) CAD (coronary artery disease): Qualifiers: Coronary Disease-Associated Artery/Lesion type: [place] artery [place] vs. transplanted heart: [place] heart Associated angina: without angina Qualified Code(s): I25.10 - Atherosclerotic heart disease of [place] coronary artery without angina pectoris Code(s): I25.10 - Atherosclerotic heart disease of [place] coronary artery without angina pectoris Status: Chronic Assessment and Plan: Stable. Continue ASA. Recommend statin. (5) History of mitral valve replacement with bioprosthetic valve: Onset Date: 04/2021 Code(s): Z95.3 - Presence of xenogenic heart valve Status: Acute Assessment and Plan: Stable. (6) H/O tricuspid valve annuloplasty: Code(s): Z98.890 - Other specified postprocedural states Status: Acute Assessment and Plan: Stable. (7) Elevated troponin: Code(s): R79.89 - Other specified abnormal findings of blood chemistry Status: Acute Assessment and Plan: Not an acute coronary syndrome (8) Cardiomyopathy: Qualifiers: Cardiomyopathy type: ischemic Qualified Code(s): I25.5 - Ischemic cardiomyopathy Code(s): I42.9 - Cardiomyopathy, unspecified Status: Acute Assessment and Plan: Recent echocardiogram 08/10 with LVEF 50-55%, mildly reduced RVSF. Her lower extremity edema is likely multifactorial due to CHF, CKD, obesity, sedentary lifestyle. Can hold diuretics for now, will need to resume when FRANK and hypotension improve. Recommend to do compression wraps. History of Present Illness History of Present Illness Consult date/time: 08/27/24 10:34 Requesting physician: Martine Ochoa APRN Consult reason: Other (CHF, Hypotension, Cardiomyopathy, CKD) Reason For Visit: hypotension,L heel ulcer, uremia, AMS Narrative: This is a 74 year old female with CAD s/p CABG (BARR-LAD, SVG-RI), paroxysmal atrial fibrillation, heart failure with reduced LVEF s/p biventricular ICD, mitral regurgitation s/p bioprosthetic mitral valve replacement with a 31mm Gilbert bioprosthesis, tricuspid valve repair, chronic kidney disease stage 4. Patient follows with Dr. Gupta in the office. Recently admitted to [facility] for septic shock. Patient admitted to [facility] on 08/25 for altered mental status, unable to get out of bed. She was noted to be hypotensive on admission. Had FRANK on CKD. Her CHF meds have been placed given FRANK on CKD and hypotension. She has been started on Midodrine. Review of Systems Review of Systems: All systems reviewed & are unremarkable except as noted in HPI and below (HPI) [facility] Past Medical History Medical History Acute non-ST elevation myocardial infarction (NSTEMI) Anemia Aortic stenosis Atrial fibrillation with rapid ventricular response CAD (coronary artery disease) Cardiomyopathy Ejection fraction as low as 10 to 15%, EF was 36% after ICD insertion, with most recent EF July 2024 50-55% with hypokinesis basal inferior and inferior septum, right ventricular chamber mildly enlarged right ventricular systolic function reduced, mild aortic valve stenosis with peak velocity 222, me gradient 9 valve area 1.6 no stenosis of bioprosthetic mitral valve mild periventricular mitral valve regurgitation trace tricuspid valve regurgitation mild pulmonary hypertension RVSP of 48 Chronic kidney disease Chronic obstructive pulmonary disease Congestive heart failure Contraindication to anticoagulation therapy Secondary to GI bleed. Status post left atrial appendage ligation. Coronary artery disease Status post 2 vessel bypass. Depression GI bleed Gout History of placement of internal cardiac defibrillator Hyperlipidemia Kidney stones LBBB (left bundle branch block) Nephrolithiasis Nocturnal hypoxia Paroxysmal atrial fibrillation Psoriasis Subcapital fracture of right hip Tobacco dependence Surgical History Surgical History H/O two vessel coronary artery bypass graft (04/2021) History of appendectomy History of coronary artery stent placement History of hip surgery (08/2022) ORIF for fracture History of mitral valve replacement with bioprosthetic valve History of tricuspid valve repair History of tubal ligation History of two vessel coronary artery bypass graft Status post implantation of automatic cardioverter/defibrillator (AICD) Status post ligation of left atrial appendage Family History Family History Father Cancer Mother Acute myocardial infarction Congestive heart failure Son Diabetes mellitus Sibling Chronic obstructive pulmonary disease Social History Social History Social History: The patient lives with her and 1 of their sons in [place]. She has 2 other sons that live nearby. She smoked up to 3 packs of cigarettes a day at 1 time but she is down to about half a pack a day. She has smoked for 50 years. She denies alcohol and illicit substance use. Prior to COVID-19 the patient was working for the [employer]. Code status: DNR/DNI (patient voiced desire to change code status 02/2024) Surrogate decision maker: Adiel Rangel () Smoking packs per day: 1 Smoking cigarettes per day: 20.0 Years smoked: 50 Smoking pack-years: 50.00 Smoking status: Current every day smoker Tobacco type: cigarettes Second hand tobacco smoke exposure: Yes Alcohol intake: never Substance use: never Do You Feel Safe in your Home?: Yes Lack of Transportation: No Lack of Food: Never True Current Housing: I Have Housing Concerned About Future Housing: No Difficulty Paying Gas/Electric Bills: No Difficulty Paying for Meds: No Currently Unemployed: No Education: High School Diploma/GED Difficulty w/ Childcare or Family Care: No Living arrangements: with family Gender identity (if verbalized by the patient): Female Spiritual care concerns: No Meds Home Medications and Allergies Home Medications Medication Instructions Recorded Confirmed Type aspirin 325 mg tablet 325 mg PO DAILY 07/09/21 08/25/24 History amiodarone 200 mg tablet (Pacerone) 200 mg PO DAILY 09/28/21 08/25/24 History albuterol sulfate 90 mcg/actuation 2 inh inhalation Q4H PRN shortness 02/08/24 08/25/24 Rx aerosol inhaler of breath or wheezing #8.5 grams levothyroxine 75 mcg tablet 75 mcg PO DAILY 03/20/24 08/25/24 History bumetanide 1 mg tablet 2 mg PO DAILY #60 tabs 03/29/24 08/25/24 Rx sacubitril 49 mg-valsartan 51 mg 0.5 tablet PO Q12HR #30 tabs 04/10/24 08/25/24 Rx tablet (Entresto) metolazone 2.5 mg tablet 2.5 mg PO DAILY 04/24/24 08/25/24 History allopurinol 100 mg tablet 50 mg PO Q48H #30 tabs 05/29/24 08/25/24 Rx gabapentin 100 mg capsule 200 mg PO BID #120 caps 07/17/24 08/25/24 Rx amoxicillin 500 mg-potassium 1 tablet PO Q12HR #20 tabs 08/15/24 08/25/24 Rx clavulanate 125 mg tablet (Augmentin) doxycycline hyclate 100 mg tablet 100 mg PO Q12HR #20 tabs 08/15/24 08/25/24 Rx ferrous sulfate 325 mg (65 mg 325 mg PO BID #60 tabs 08/15/24 08/25/24 Rx iron) tablet midodrine 10 mg tablet 10 mg PO TID #90 tabs 08/15/24 08/25/24 Rx umeclidinium 62.5 mcg/actuation 1 inh inhalation DAILYRT #30 ea 08/15/24 08/25/24 Rx blister powder for inhalation (Incruse Ellipta) Allergies Allergy/AdvReac Type Severity Reaction Status Date / Time No Known Allergies Allergy Verified 08/25/24 17:12 Vital Signs Vital Signs - 24 hr 08/26/24 12:00 08/26/24 12:00 08/26/24 14:00 Temperature 36.3 C L Pulse Rate 64 64 63 Respiratory Rate 24 H Blood Pressure 93/43 L Pulse Oximetry 100 Oxygen Delivery Oxygen Flow Rate 08/26/24 16:00 08/26/24 21:08 08/26/24 20:00 Temperature 35.8 C L 36.1 C L Pulse Rate 113 H 59 L Respiratory Rate 16 14 Blood Pressure 108/58 L 118/42 L Pulse Oximetry 100 100 100 Oxygen Delivery Nasal Cannula Oxygen Flow Rate 2 08/26/24 20:00 08/27/24 00:00 08/27/24 04:00 Temperature Pulse Rate 60 61 65 Respiratory Rate Blood Pressure Pulse Oximetry Oxygen Delivery Oxygen Flow Rate 08/27/24 08:00 08/27/24 09:10 08/27/24 09:10 Temperature 36.2 C L Pulse Rate 71 71 Respiratory Rate 16 20 Blood Pressure 112/46 L Pulse Oximetry 98 96 Oxygen Delivery Nasal Cannula Oxygen Flow Rate 2 Exam Const: Other: Chronically ill appearing female HENMT: Mouth: Yes dry mucous membranes Eyes: General: appearance normal, both eyes and all related structures Sclera: sclerae normal Resp: Effort & Inspection: normal respiratory effort Cardio: Rate: regular rate Rhythm: regular rhythm Heart sounds: no murmurs Skin: General skin exam: normal color Neuro: Other: Appears confused Psych: Mental Status: mental status grossly normal Affect: normal affect Results Labs and Meds 08/27/24 06:45 08/27/24 06:45 Lab results: Cardiac Enzymes 08/26/24 08/27/24 Range/Units 15:21 06:45 AST 20 (14-36) U/L Troponin I 0.185 H* (0.000-0.034) ng/mL CBC 08/27/24 Range/Units 06:45 WBC 10.2 H (4.5-10.0) K/mm3 RBC 3.12 L (4.2-5.4) M/mm3 Hgb 7.7 L (12.0-15.0) g/dL Hct 25.8 L (37.0-47.0) % Plt Count 256 (150-375) k/mm3 Lymph # (Auto) 0.52 L (0.9-3.2) K/mm3 Lewis # (Auto) 0.5 (0.1-0.6) K/mm3 Eos # (Auto) 0.0 (0-0.3) K/mm3 Baso # (Auto) 0.0 (0.0-0.1) K/mm3 Comprehensive Metabolic Panel 08/26/24 08/26/24 08/26/24 Range/Units 15:21 15:21 15:21 Sodium Cancelled 145 Potassium Cancelled 2.9 L Chloride Cancelled Carbon Dioxide BUN Creatinine Glucose Calcium AST (14-36) U/L ALT (6-35) U/L Alkaline Phosphatase (38-126) U/L Total Protein (6.3-8.2) g/dL Albumin (3.5-5.1) g/dL 08/26/24 08/26/24 08/26/24 Range/Units 15:21 15:21 15:21 Sodium Potassium Chloride 101 Carbon Dioxide Cancelled 36 H BUN Cancelled 134 H Creatinine Cancelled Glucose Calcium AST (14-36) U/L ALT (6-35) U/L Alkaline Phosphatase (38-126) U/L Total Protein (6.3-8.2) g/dL Albumin (3.5-5.1) g/dL 08/26/24 08/26/24 08/26/24 Range/Units 15:21 15:21 15:21 Sodium Potassium Chloride Carbon Dioxide BUN Creatinine 2.20 H Glucose Cancelled 115 H Calcium Cancelled 8.6 AST (14-36) U/L ALT (6-35) U/L Alkaline Phosphatase (38-126) U/L Total Protein (6.3-8.2) g/dL Albumin (3.5-5.1) g/dL 08/26/24 08/27/24 Range/Units 22:09 06:45 Sodium 145 149 H Potassium 3.7 3.9 Chloride 103 105 Carbon Dioxide 35 H 36 H BUN 131 H 126 H Creatinine 2.20 H 2.00 H Glucose 106 95 Calcium 8.9 9.2 AST 20 (14-36) U/L ALT 15 (6-35) U/L Alkaline Phosphatase 77 (38-126) U/L Total Protein 6.0 L (6.3-8.2) g/dL Albumin 2.9 L (3.5-5.1) g/dL Intake and Output 08/26/24 08/27/24 08/27/24 23:59 07:59 15:59 Intake Total 500 400 Output Total 1200 Balance 500 -800 Intake: Oral 500 400 Output: Catheter Urine 1200 Urethral Catheter 1200 Patient Weight 08/27/24 23:59 Weight 86.3 kg
--- NOTE | 2024-08-27 10:45 | P.PNNP_ITS ---
Progress Note: A&P Assessment and Plan (1) Chronic kidney disease, stage 4 (severe): Code(s): N18.4 - Chronic kidney disease, stage 4 (severe) Status: Chronic Assessment and Plan: * baseline creatinine runs ~ 1.7 - 2.2mg/dl * appears close to baseline by recent labs (although was elevated to 2.6mg/dl on admission) * however, her BUN is quite elevated above her baseline...(see #2) * based on outpatient evaluation, thought to be secondary to previous HTN and chronic prerenal azotemia from her CHF/cardiomyopathy with ongoing need for diuretic therapy (2) Azotemia: Code(s): R79.89 - Other specified abnormal findings of blood chemistry Status: Acute Assessment and Plan: * BUN is quite elevated as noted since admission * suspect multifactorial: * previous steroid use on last hospitalization * use of doxycyline (tetracycline antibiotics have been known to do this) * prerenal factors (volume depletion/diminished oral intake) * ongoing diuretic therapy * inflammation (new infection?) * r/o GI blood loss * agree with holding diuretics/Entresto for now * interestingly, did improve with IVF boluses on admission * suspect a contributing component to confusion * if this fails to improve with conservative therapy, dialysis is a consideration... * however, I worry that dialysis may push her to ESRD status * consider trial of further IVFs if respiratory status tolerates...but her CXR is concerning for fluid retention already * is this a situation where she is intravascularly dry despite outward signs of volume overload? * follow trend of repeat labs (3) Hypernatremia: Code(s): E87.0 - Hyperosmolality and hypernatremia Status: Acute Assessment and Plan: * this would suggest she is not drinking enough water * follow trend for now (4) Hypotension: Qualifiers: Hypotension type: hypotension due to hypovolemia Qualified Code(s): E86.1 - Hypovolemia Code(s): I95.9 - Hypotension, unspecified Status: Acute Assessment and Plan: * has a chronic component at baseline * started on midodrine on last hospitalization * midodrine on hold since BP holding stable * follow trend of hemodynamics (5) Metabolic encephalopathy: Code(s): G93.41 - Metabolic encephalopathy Status: Acute Assessment and Plan: * due to uremia/azotemia +/- infection (?) * seems better now * CT of head negative for any acute findings (6) Anemia: Code(s): D64.9 - Anemia, unspecified Status: Acute Assessment and Plan: * as noted * previously with iron deficiency * will recheck anemia studies * consider empiric IGNACIA * follow trend of H/H (7) Cardiomyopathy: Qualifiers: Cardiomyopathy type: ischemic Qualified Code(s): I25.5 - Ischemic cardiomyopathy Code(s): I42.9 - Cardiomyopathy, unspecified Status: Acute Assessment and Plan: * known history * however. recent echo with improved EF to 55% * follow volume status closely * Cardiology following (8) Ulcer of left heel: Code(s): L97.429 - Non-pressure chronic ulcer of left heel and midfoot with unspecified severity Status: Acute Assessment and Plan: * s/p intervention on last hospitalization * General Surgery following * no intervention needed at this time * local wound care Long extensive (greater than 20 minutes) with the patient's at bedside regarding her fluctuating mentation, her elevated BUN/azotemia, and the concern that uremia is playing a role with her mental status. Unfortunately, if her mentation continues to deteriorate in association with a rising BUN, the only real option to consider is renal replacement therapy/dialysis as this would provide adequate clearance of the uremia/uremic toxins. Her voiced understanding but stated that he does not think his would want dialysis in the long run. Will continue to follow Subjective Date/time seen: 08/27/24 10:45 Interval history: Follow-up for chronic kidney disease and elevated BUN/azotemia. She seems to be feeling a bit better at the time of my visit; creatinine remains stable and her BUN has trended down as well; she still seems a bit confused and her was at bedside and confirmed this; she denies any shortness of breath or any other symptoms currently; no other events overnight or earlier today. Exam Narrative: General: elderly but WD/WN female in NAD Heart: normal S1 and S2; no rub Lungs: coarse breath sounds Abdomen: soft, nontender, nondistended, positive bowel sounds Extremities: no cyanosis or clubbing; 1+ edema Skin: left foot dressings present Objective Data Vital Signs Vital Signs: Vital Signs Temp Pulse Resp BP Pulse Ox O2 Del Method O2 Flow Rate 08/27/24 08:00 96 Nasal Cannula 2 08/27/24 09:10 71 20 08/27/24 09:10 96 Nasal Cannula 2 08/27/24 08:00 97.1 F L 71 16 112/46 L 98 08/27/24 04:00 65 08/27/24 00:00 61 08/26/24 20:00 60 08/26/24 20:00 100 Nasal Cannula 2 08/26/24 21:08 96.9 F L 59 L 14 118/42 L 100 08/26/24 16:00 96.4 F L 113 H 16 108/58 L 100 08/26/24 14:00 63 Intake/Output Intake/Output: Intake & Output 08/24/24 08/25/24 08/26/24 08/27/24 23:59 23:59 23:59 23:59 Intake Total 3000 1195 520 Output Total 600 1200 Balance 3000 595 -680 Meds/Results Medications: Active Medications Generic Name Dose Route Start Last Admin Trade Name Freq PRN Reason Stop Dose Admin Allopurinol 50 mg 08/26/24 09:00 08/26/24 10:17 Allopurinol 50 Mg Tablet PO 50 mg Q48H MADELINE Administration Aspirin 325 mg 08/26/24 09:00 08/27/24 09:05 Aspirin 325 Mg Tablet PO 325 mg DAILY MADELINE Administration Collagenase 1 applic 08/26/24 09:00 08/27/24 12:14 Collagenase Oint 30 Gm Tube TOPICAL 1 applic QAM MADELINE Administration Fluconazole 150 mg 08/29/24 09:00 Fluconazole 150 Mg Tablet PO 09/01/24 09:01 Q72H MADELINE Guaifenesin 600 mg 08/27/24 10:00 08/27/24 12:14 Guaifenesin 12 Hr 600 Mg Tabcr PO 09/03/24 09:59 600 mg Q12HR MADELINE Administration Heparin Sodium (Porcine) 5,000 units 08/26/24 09:00 08/27/24 09:06 Heparin Sodium 5,000 Units/Ml Vial SUB-Q 5,000 units Q12HR MADELINE Administration Ceftriaxone Sodium 2 gm in 100 mls @ 200 mls/hr 08/26/24 14:00 08/27/24 09:05 Rocephin 2 Gm/Ns 100 Ml IVPB 200 mls/hr DAILY MADELINE Administration Levothyroxine Sodium 75 mcg 08/26/24 06:30 08/27/24 05:54 Levothyroxine Sodium 75 Mcg Tablet PO 75 mcg DAILY@0630 MADELINE Administration Metronidazole 500 mg 08/26/24 22:00 08/27/24 05:54 Metronidazole 500 Mg Tablet PO 500 mg Q8HR MADELINE Administration Midodrine 10 mg 08/26/24 09:00 08/27/24 12:14 Midodrine Hcl 10 Mg Tablet PO 10 mg TID MADELINE Administration Ondansetron HCl 4 mg 08/25/24 21:16 Ondansetron Inj 4 Mg/2 Ml Vial IV PUSH Q4H PRN Nausea Umeclidinium Stephenson 1 puff 08/26/24 08:00 08/27/24 09:10 Umeclidinium Stephenson 62.5 Mcg Ellipta INHALATION 1 puff DAILYRT MADELINE Administration Radiology Results: ITS Impressions Chest X-Ray 08/25/24 18:10 IMPRESSION: Cardiomegaly, pulmonary vascular congestion and redistribution, consistent with mild congestive heart failure, mildly improved since 08/15/2024 Aortic atherosclerosis Left triple lead pacemaker Postoperative changes Foot X-Ray 08/25/24 18:30 IMPRESSION: Very prominent soft tissue ulcer at the posterior heel, with suggest ion of calcaneal exposure Soft tissue swelling Prominent osteopenia; this may obscure fracture or bone destruction. If there is concern for osteomyelitis, consider three-phase radionuclide bone scan. Tibia/Fibula X-Ray 08/25/24 18:35 IMPRESSION: Osteopenia Soft tissue swelling Arterial calcifications Head CT 08/25/24 18:43 IMPRESSION: Cerebral atherosclerosis and chronic small vessel ischemic changes of the cerebral white matter Small chronic right frontal probable cerebrovascular accident No acute intracranial finding or hemorrhage Labs Labs: Laboratory Tests 08/27/24 06:45 08/27/24 06:45 Calcium 9.2 Total Bilirubin 0.6 AST 20 ALT 15 Alkaline Phosphatase 77 Total Protein 6.0 L Albumin 2.9 L TSH (Reflex) 5.860 H Free T4 1.86 Total T3 0.49 L Random Cortisol 32.60 Hep Bs Antigen Negative Hep Bs Antibody Negative Hep B Core Total Ab Pending Microbiology 08/25/24 16:38 Blood Blood Culture - Preliminary 08/25/24 16:42 Blood Blood Culture - Preliminary
[2024-08-27 11:00] LABS: Free T4 Free Thyroxine Reflex 1.86 ng/dL (0.78-2.19)
[2024-08-27 12:06] LABS: Total Triiodothyronine (T3) 0.49 NG/ML (0.97-1.69)
[2024-08-27] MEDS: guaiFENesin 12 HR 600 MG TABCR PO ×2 (12:14→21:03)
[2024-08-27] MEDS: COLLAGENASE OINT 30 GM TUBE 1 APPLIC TOPICAL (12:14)
--- NOTE | 2024-08-27 15:21 | PM.PNGS ---
Progress Note: A&P Assessment and Plan (1) Ulcer of left heel: Code(s): L97.429 - Non-pressure chronic ulcer of left heel and midfoot with unspecified severity Status: Acute Assessment and Plan: Stage IV left heel pressure ulcer that appears stable with no signs of active infection at this time. Continue local wound care with Santyl dressing changes for enzymatic debridement. Continue using waffle boots and elevating her lower extremities at rest. (2) Ulcer of right leg: Code(s): L97.919 - Non-pressure chronic ulcer of unspecified part of right lower leg with unspecified severity Status: Acute Assessment and Plan: Right lower lateral leg ulcer has a dark eschar overlying the wound, but appears to be superficial. Continue local wound care with Santyl dressing changes for enzymatic debridement. This does not currently need surgical debridement, but depending on how the wound progresses, it may need this in the future. She also has a deep tissue injury to the right heel, but all overlying skin is currently intact. Continue wall full boots and elevating lower extremities. (3) Sepsis: Qualifiers: Sepsis type: sepsis due to unspecified organism Sepsis acute organ dysfunction status: with acute organ dysfunction Severe sepsis acute organ dysfunction type: acute renal failure Acute renal failure type: unspecified Severe sepsis shock status: without septic shock Qualified Code(s): A41.9 - Sepsis, unspecified organism; R65.20 - Severe sepsis without septic shock; N17.9 - Acute kidney failure, unspecified Code(s): A41.9 - Sepsis, unspecified organism Status: Acute Assessment and Plan: Concerns for possible sepsis causing her hypotension on admission. She is on empiric IV antibiotics. Her white blood cell count is trending down. Her wounds would not be causing her sepsis. See plan above. (4) Metabolic encephalopathy: Code(s): G93.41 - Metabolic encephalopathy Status: Acute (5) Acute on chronic renal failure: Qualifiers: Acute renal failure type: unspecified Chronic kidney disease stage: stage 4 (severe) Qualified Code(s): N17.9 - Acute kidney failure, unspecified; N18.4 - Chronic kidney disease, stage 4 (severe) Code(s): N17.9 - Acute kidney failure, unspecified; N18.9 - Chronic kidney disease, unspecified Status: Acute (6) Peripheral artery disease: Code(s): I73.9 - Peripheral vascular disease, unspecified Status: Acute Assessment and Plan: ABIs during her last hospitalization showed moderately decreased ABIs consistent with arterial occlusive disease. There is no reason for any acute transfer, but she may benefit from outpatient referral to vascular surgery eventually once she is discharged. Plan I have discussed the patient's case and plan of care with Dr. Sneed. Subjective Subjective Date/Time Seen: 08/27/24 15:21 Patient reports: no new complaints and afebrile Interval history: Patient is alert and appears comfortable. She denies any complaints at this time, but when doing her dressing changes she does report left heel pain. Exam Const: General: comfortable and no acute distress Skin: Other: Right lateral lower leg ulcer appears superficial but with 100% of the wound bed dark red/purple and black with mild localized pink discoloration of the skin around the border of the wound. No crepitus, no purulent drainage, and no odor. Unchanged from yesterday. Right heel with a purple deep tissue injury measuring 5 x 6 cm, nonblanchable, all of the overlying skin is intact. Stage IV left heel ulcer measuring 4.5 x 6 x 1 cm with more yellow and mendes slough in about 80% of the wound bed today. No purulent drainage, no crepitus, and no foul odor. Objective Data Vital Signs Vital Signs: Vital Signs - 24 hr 08/26/24 16:00 08/26/24 21:08 08/26/24 20:00 Temperature 96.4 F L 96.9 F L Pulse Rate 113 H 59 L Respiratory Rate 16 14 Blood Pressure 108/58 L 118/42 L Pulse Oximetry 100 100 100 Oxygen Delivery Nasal Cannula Oxygen Flow Rate 2 08/26/24 20:00 08/27/24 00:00 08/27/24 04:00 Temperature Pulse Rate 60 61 65 Respiratory Rate Blood Pressure Pulse Oximetry Oxygen Delivery Oxygen Flow Rate 08/27/24 08:00 08/27/24 09:10 08/27/24 09:10 Temperature 97.1 F L Pulse Rate 71 71 Respiratory Rate 16 20 Blood Pressure 112/46 L Pulse Oximetry 98 96 Oxygen Delivery Nasal Cannula Oxygen Flow Rate 2 08/27/24 08:00 08/27/24 11:09 08/27/24 08:00 Temperature Pulse Rate 73 Respiratory Rate Blood Pressure Pulse Oximetry 96 Oxygen Delivery Nasal Cannula Room Air Oxygen Flow Rate 2 08/27/24 12:02 Temperature Pulse Rate 71 Respiratory Rate Blood Pressure Pulse Oximetry Oxygen Delivery Oxygen Flow Rate Intake/Output Intake/Output: Intake & Output 08/24/24 08/25/24 08/26/24 08/27/24 23:59 23:59 23:59 23:59 Intake Total 3000 1195 520 Output Total 600 1200 Balance 3000 595 -680 Meds/Results Medications: Active Medications Generic Name Dose Route Start Last Admin Trade Name Iraj PRN Reason Stop Dose Admin Allopurinol 50 mg 08/26/24 09:00 08/26/24 10:17 Allopurinol 50 Mg Tablet PO 50 mg Q48H MADELINE Administration Aspirin 325 mg 08/26/24 09:00 08/27/24 09:05 Aspirin 325 Mg Tablet PO 325 mg DAILY MADELINE Administration Collagenase 1 applic 08/26/24 09:00 08/27/24 12:14 Collagenase Oint 30 Gm Tube TOPICAL 1 applic QAM MADELINE Administration Fluconazole 150 mg 08/29/24 09:00 Fluconazole 150 Mg Tablet PO 09/01/24 09:01 Q72H [facility] Guaifenesin 600 mg 08/27/24 10:00 08/27/24 12:14 Guaifenesin 12 Hr 600 Mg Tabcr PO 09/03/24 09:59 600 mg Q12HR MADELINE Administration Heparin Sodium (Porcine) 5,000 units 08/26/24 09:00 08/27/24 09:06 Heparin Sodium 5,000 Units/Ml Vial SUB-Q 5,000 units Q12HR MADELINE Administration Ceftriaxone Sodium 2 gm in 100 mls @ 200 mls/hr 08/26/24 14:00 08/27/24 09:05 Rocephin 2 Gm/Ns 100 Ml IVPB 200 mls/hr DAILY MADELINE Administration Levothyroxine Sodium 75 mcg 08/26/24 06:30 08/27/24 05:54 Levothyroxine Sodium 75 Mcg Tablet PO 75 mcg DAILY@0630 MADELINE Administration Metronidazole 500 mg 08/26/24 22:00 08/27/24 14:13 Metronidazole 500 Mg Tablet PO 500 mg Q8HR MADELINE Administration Midodrine 10 mg 08/26/24 09:00 08/27/24 12:14 Midodrine Hcl 10 Mg Tablet PO 10 mg TID MADELINE Administration Ondansetron HCl 4 mg 08/25/24 21:16 Ondansetron Inj 4 Mg/2 Ml Vial IV PUSH Q4H PRN Nausea Umeclidinium [place] 1 puff 08/26/24 08:00 08/27/24 09:10 Umeclidinium [place] 62.5 Mcg Ellipta INHALATION 1 puff DAILYRT MADELINE Administration Radiology Results: ITS Impressions Chest X-Ray 08/25/24 18:10 IMPRESSION: Cardiomegaly, pulmonary vascular congestion and redistribution, consistent with mild congestive heart failure, mildly improved since 08/15/2024 Aortic atherosclerosis Left triple lead pacemaker Postoperative changes Foot X-Ray 08/25/24 18:30 IMPRESSION: Very prominent soft tissue ulcer at the posterior heel, with suggestion of calcaneal exposure Soft tissue swelling Prominent osteopenia; this may obscure fracture or bone destruction. If there is concern for osteomyelitis, consider three-phase radionuclide bone scan. Tibia/Fibula X-Ray 08/25/24 18:35 IMPRESSION: Osteopenia Soft tissue swelling Arterial calcifications Head CT 08/25/24 18:43 IMPRESSION: Cerebral atherosclerosis and chronic small vessel ischemic changes of the cerebral white matter Small chronic right frontal probable cerebrovascular accident No acute intracranial finding or hemorrhage Labs Labs: Laboratory Results - last 24 hr 08/26/24 08/26/24 08/26/24 15:21 15:21 15:21 WBC RBC Hgb Hct MCV MCH MCHC RDW Plt Count MPV Immature Gran % (Auto) Neut % (Auto) Lymph % (Auto) [place] % (Auto) Eos % (Auto) Baso % (Auto) Lymph # (Auto) [place] # (Auto) Eos # (Auto) Baso # (Auto) Abs Immat Gran (auto) Absolute Neuts (auto) Absolute Nucleated RBC Nucleated RBC % Platelet Estimate Hypochromasia Anisocytosis Schistocytes Sodium Cancelled 145 Potassium Cancelled 2.9 L Chloride Cancelled Carbon Dioxide Anion Gap BUN Creatinine Estim Creat Clear Calc Estimated GFR Glucose POC Capillary Glucose Calcium Total Bilirubin AST ALT Alkaline Phosphatase Troponin I Total Protein Albumin TSH (Reflex) Free T4 Total T3 Random Cortisol Hep Bs Antigen Hep Bs Antibody 08/26/24 08/26/24 08/26/24 15:21 15:21 15:21 WBC RBC Hgb Hct MCV MCH MCHC RDW Plt Count MPV Immature Gran % (Auto) Neut % (Auto) Lymph % (Auto) [place] % (Auto) Eos % (Auto) Baso % (Auto) Lymph # (Auto) [place] # (Auto) Eos # (Auto) Baso # (Auto) Abs Immat Gran (auto) Absolute Neuts (auto) Absolute Nucleated RBC Nucleated RBC % Platelet Estimate Hypochromasia Anisocytosis Schistocytes Sodium Potassium Chloride 101 Carbon Dioxide Cancelled 36 H Anion Gap Cancelled 8 BUN Cancelled Creatinine Estim Creat Clear Calc Estimated GFR Glucose POC Capillary Glucose Calcium Total Bilirubin AST ALT Alkaline Phosphatase Troponin I Total Protein Albumin TSH (Reflex) Free T4 Total T3 Random Cortisol Hep Bs Antigen Hep Bs Antibody 08/26/24 08/26/24 08/26/24 15:21 15:21 15:21 WBC RBC Hgb Hct MCV MCH MCHC RDW Plt Count MPV Immature Gran % (Auto) Neut % (Auto) Lymph % (Auto) [place] % (Auto) Eos % (Auto) Baso % (Auto) Lymph # (Auto) [place] # (Auto) Eos # (Auto) Baso # (Auto) Abs Immat Gran (auto) Absolute Neuts (auto) Absolute Nucleated RBC Nucleated RBC % Platelet Estimate Hypochromasia Anisocytosis Schistocytes Sodium Potassium Chloride Carbon Dioxide Anion Gap BUN 134 H Creatinine Cancelled 2.20 H Estim Creat Clear Calc Cancelled 21 Estimated GFR Cancelled Glucose POC Capillary Glucose Calcium Total Bilirubin AST ALT Alkaline Phosphatase Troponin I Total Protein Albumin TSH (Reflex) Free T4 Total T3 Random Cortisol Hep Bs Antigen Hep Bs Antibody 08/26/24 08/26/24 08/26/24 15:21 15:21 15:21 WBC RBC Hgb Hct MCV MCH MCHC RDW Plt Count MPV Immature Gran % (Auto) Neut % (Auto) Lymph % (Auto) [place] % (Auto) Eos % (Auto) Baso % (Auto) Lymph # (Auto) [place] # (Auto) Eos # (Auto) Baso # (Auto) Abs Immat Gran (auto) Absolute Neuts (auto) Absolute Nucleated RBC Nucleated RBC % Platelet Estimate Hypochromasia Anisocytosis Schistocytes Sodium Potassium Chloride Carbon Dioxide Anion Gap BUN Creatinine Estim Creat Clear Calc Estimated GFR 22 L Glucose Cancelled 115 H POC Capillary Glucose Calcium Cancelled 8.6 Total Bilirubin AST ALT Alkaline Phosphatase Troponin I 0.185 H* Total Protein Albumin TSH (Reflex) Free T4 Total T3 Random Cortisol Hep Bs Antigen Hep Bs Antibody 08/26/24 08/26/24 08/27/24 20:03 22:09 06:45 WBC 10.2 H RBC 3.12 L Hgb 7.7 L Hct 25.8 L MCV 82.7 MCH 24.7 L MCHC 29.8 L RDW 19.4 H Plt Count 256 MPV 11.5 H Immature Gran % (Auto) 0.3 Neut % (Auto) 90.0 H Lymph % (Auto) 5.1 L [place] % (Auto) 4.4 Eos % (Auto) 0.0 Baso % (Auto) 0.2 Lymph # (Auto) 0.52 L [place] # (Auto) 0.5 Eos # (Auto) 0.0 Baso # (Auto) 0.0 Abs Immat Gran (auto) 0.03 Absolute Neuts (auto) 9.1 H Absolute Nucleated RBC 0.000 Nucleated RBC % 0.0 Platelet Estimate Adequate Hypochromasia 1+ Anisocytosis 1+ Schistocytes None seen Sodium 145 149 H Potassium 3.7 3.9 Chloride 103 105 Carbon Dioxide 35 H 36 H Anion Gap 7 8 BUN 131 H 126 H Creatinine 2.20 H 2.00 H Estim Creat Clear Calc 21 23 Estimated GFR 22 L 24 L Glucose 106 95 POC Capillary Glucose 127 H Calcium 8.9 9.2 Total Bilirubin 0.6 AST 20 ALT 15 Alkaline Phosphatase 77 Troponin I Total Protein 6.0 L Albumin 2.9 L TSH (Reflex) 5.860 H Free T4 1.86 Total T3 0.49 L Random Cortisol 32.60 Hep Bs Antigen Negative Hep Bs Antibody Negative
[2024-08-28] VITALS (14 sets, daily range): BP systolic 98–127; BP diastolic 32–95; PULSE 68–143; RESP 16–24; TEMP 36.1–36.8; O2SAT 92–100; BMI 10.0
[2024-08-28] MEDS: LEVOTHYROXINE SODIUM 75 MCG TABLET PO (05:31)
[2024-08-28] MEDS: metroNIDAZOLE 500 MG TABLET PO ×3 (05:31→21:11)
[2024-08-28] MEDS: ACETAMINOPHEN 325 MG TABLET 650 MG PO ×2 (05:34→23:47)
[2024-08-28 07:24] LABS: Hematocrit 25.6 % (37.0-47.0); Hemoglobin 7.4 g/dL (12.0-15.0); Immature Granulocyte Absolute 0.04 K/mm3 (0.00-0.031); Immature Granulocyte Percent A 0.4 % (0-0.5); Lymphocytes Absolute Auto 0.55 K/mm3 (0.9-3.2); Lymphocytes Percent Auto 5.7 % (18.3-44.2); Mean Corpuscular HGB Conc 28.9 g/dl (32-36); Mean Corpuscular Hemoglobin 24.2 pg (26-34); Mean Corpuscular Volume 83.7 fl (80-100); Mean Platelet Volume 11.6 fl (7.4-10.4); Monocytes Absolute Auto 0.4 K/mm3 (0.1-0.6); Monocytes Percent Auto 4.3 % (2.6-8.5); Neutrophils Absolute Auto 8.7 K/mm3 (1.3-6.7); Neutrophils Percent Auto 89.6 % (45.5-73.1); Platelet Count Result 250 k/mm3 (150-375); Red Blood Count 3.06 M/mm3 (4.2-5.4); Red Cell Distribution Width 19.3 % (11.5-14.5); White Blood Count 9.7 K/mm3 (4.5-10.0)
[2024-08-28 08:00] LABS: Alanine Aminotransferase 13 U/L (6-35); Albumin Level 2.9 g/dL (3.5-5.1); Alkaline Phosphatase 75 U/L (38-126); Anion Gap 6 mmol/L (4-12); Aspartate Amino Transferase 16 U/L (14-36); Bilirubin,Total 0.5 mg/dL (0.2-1.3); Blood Urea Nitrogen 115 mg/dL (7-17); Carbon Dioxide 36 mmol/L (22-30); Chloride 106 mmol/L (98-107); Estimated CRCL calculation 28 ml/min; Estimated Glomerular Filt Rate 32; Glucose 104 mg/dL (65-110); Potassium 3.3 mmol/L (3.4-5.0); Sodium 148 mmol/L (137-145)
[2024-08-28] MEDS: HEPARIN SODIUM 5,000 UNITS/ML VIAL 5000 UNITS SUB-Q ×2 (08:37→21:11)
[2024-08-28] MEDS: cefTRIAXone 2 GM/NS 100 ML 2 GM/100 ML BAG IVPB (08:37)
[2024-08-28] MEDS: allopurinoL 50 MG TABLET PO (08:37)
[2024-08-28] MEDS: MIDODRINE HCL 10 MG TABLET PO ×3 (08:37→16:19)
[2024-08-28] MEDS: ASPIRIN 325 MG TABLET PO (08:38)
[2024-08-28] MEDS: COLLAGENASE OINT 30 GM TUBE 1 APPLIC TOPICAL (08:38)
[2024-08-28] MEDS: guaiFENesin 12 HR 600 MG TABCR PO ×2 (08:38→21:11)
[2024-08-28] MEDS: UMECLIDINIUM BROMIDE 62.5 MCG ELLIPTA 1 PUFF INHALATION (08:41)
[2024-08-28 09:01] LABS: Platelet Estimate Adequate (Adequate)
[2024-08-28 09:02] LABS: Anisocytosis 1+; Hypochromasia 1+
[2024-08-28 09:03] LABS: Basophilic Stippling 1+
[2024-08-28 09:06] LABS: Target Cells 1+
[2024-08-28 09:16] LABS: Schistocytes None Seen
--- NOTE | 2024-08-28 09:46 | P.PNIM_ITS ---
Progress Note: A&P Assessment and Plan (1) Sepsis: Qualifiers: Acute renal failure type: unspecified Sepsis acute organ dysfunction status: with acute organ dysfunction Sepsis type: sepsis due to unspecified or ganism Severe sepsis acute organ dysfunction type: acute renal failure Severe sepsis shock status: without septic shock Qualified Code(s): A41.9 - Sepsis, unspecified organism; R65.20 - Severe sepsis without septic shock; N17.9 - Acute kidney failure, unspecified Code(s): A41.9 - Sepsis, unspecified organism Status: Acute Assessment and Plan: The patient's hypotension could be strictly cardiac in nature versus hypovolemia but cannot rule out source of infection or sepsis. * Patient received cefepime Flagyl and vancomycin in the ER to treat for possible infected foot wound. Will switch antibiotic to Ceftriaxone 2 gm IVPB daily, change Flagyl to oral, and stop Vancomycin. * Patient was noted to have mild elevation in white count and does have some chronic wounds but they do not visually a appear to be acutely infected but given her condition this cannot completely be ruled out especially in the setting of acute increasing ESR and CRP. * She is not febrile. Blood cultures no growth to date. Procalcitonin 2.3. * BP remains stable * WBC improved from 12.3>10.7>10.2>9.7 (2) Metabolic encephalopathy: Code(s): G93.41 - Metabolic encephalopathy Status: Acute Assessment and Plan: * Likely due to uremia/azotemia with markedly elevated BUN above baseline. However cannot rule out some component of encephalopathy due to acute infection. 08/28: Patient is AOx3 (person, place, year). (3) Acute on chronic renal failure: Qualifiers: Acute renal failure type: unspecified Chronic kidney disease stage: stage 4 (severe) Qualified Code(s): N17.9 - Acute kidney failure, unspecified; N18.4 - Chronic kidney disease, stage 4 (severe) Code(s): N17.9 - Acute kidney failure, unspecified; N18.9 - Chronic kidney disease, unspecified Status: Acute Assessment and Plan: Most likely multifactorial. It is certainly component of hypovolemia decreased fluid intake given the patient's clinical appearance. Patient is also on diuretic therapy and has some prerenal component due to acute on chronic hypotension. * Patient's BUN has increased markedly in this is less likely causing up component of her decreased oral intake and or confusion due to uremia. Will hold nephrotoxic medications including Entresto, Bumex and metolazone. * BUN/CR 115/1.6 on am labs * Consult Nephrology for further recommendations. Baseline Cr runs approximately 1.7-2.2 Patient's creatinine and BUN may be at the point where she may require hemodialysis for adequate fluid management but this will be difficult given the patient's hypotension. (4) Hypokalemia: Code(s): E87.6 - Hypokalemia Status: Acute Assessment and Plan: * Potassium 2.4>2.7>2.9>3.7>3.9>3.3 * Follow labs. (5) Hypotension: Qualifiers: Hypotension type: hypotension due to hypovolemia Qualified Code(s): E86.1 - Hypovolemia Code(s): I95.9 - Hypotension, unspecified Status: Acute Assessment and Plan: The patient has some component of chronic hypotension with cardiology notes mentioning patient had prior asymptomatic hypotension with systolic blood pressures in the 90s. * BP remains stable at 127/32 * Midodrine 10 mg PO TID * Encourage PO intake. * Cardiology consult. Can continue Midodrine for now. Agree with holding Entresto, Bumex, Metolazone for now. (6) Cardiomyopathy: Qualifiers: Cardiomyopathy type: ischemic Qualified Code(s): I25.5 - Ischemic cardiomyopathy Code(s): I42.9 - Cardiomyopathy, unspecified Status: Acute Assessment and Plan: * Patient's chest x-ray appears similar to prior. * After receiving 30 mL/kilos fluid bolus patient's oxygen requirement did go up from her baseline 1 L up to 3 L. the patient's BNP is markedly elevated compared to prior values. Wondering if recent initiation of midodrine may have contributed to to an acute decompensation. * The patient had recent echocardiogram earlier this month demonstrated EF that improved to 55%. With some right-sided ventricular enlargement and expected valvular abnormalities given the patient's history. * Hold Entresto,Bumex, or metolazone without discussion with both Nephrology and Cardiology. * Cardiology consult Can hold diuretics for now, will need to resume when FRANK and hypotension improve. Recommend to do compression wraps. (7) Decubitus ulcer of sacral area: Qualifiers: Pressure injury stage: unspecified pressure injury stage Qualified Code(s): L89.159 - Pressure ulcer of sacral region, unspecified stage Code(s): L89.159 - Pressure ulcer of sacral region, unspecified stage Status: Acute Assessment and Plan: * Wound Care consult. * Antifungal barrier cream. * Turn q 2. * Surgery following in case intervention needs done. * Chad 1 pack BID, encourage PO intake. (8) Ulcer of left heel: Code(s): L97.429 - Non-pressure chronic ulcer of left heel and midfoot with unspecified severity Status: Acute Assessment and Plan: * Santyl to wound bed to promote healing. * Waffle boots. * Surgery following in case intervention needs done. * [place] 1 pack BID, encourage PO intake. (9) Peripheral artery disease: Code(s): I73.9 - Peripheral vascular disease, unspecified Status: Acute Assessment and Plan: ABIs during her last hospitalization showed moderately decreased ABIs consistent with arterial occlusive disease. This can contribute to poor healing with her lower extremity ulcers. Per surgery, there is no reason for any acute transfer, but she may benefit from outpatient referral to vascular surgery if she continues to have healing complications. (10) Elevated troponin: Code(s): R79.89 - Other specified abnormal findings of blood chemistry Status: Acute Assessment and Plan: * Trop 0.617> 0.633>0.185 * Cardiac consult. Not ACS Time Spent With Patient Time with patient: 25 - 35 minutes Subjective Date/time seen: 08/28/24 09:46 Interval history: 74-year-old female with a past medical history of coronary artery disease status post 2 vessel CABG, chronic kidney disease stage 4, paroxysmal atrial fibrillation status ligation of left atrial appendage, mitral valve regurgitation with mitral valve replacement, tricuspid valve repair, severe cardiomyopathy with pacemaker/ICD, most recent EF up 55, COPD with continued tobacco use, and recent admission for septic shock requiring central line placement 08/07/2024 through 08/15/2024 who returns to the hospital from home via EMS due to altered mental status and unable to get out of bed for 2 days. Patient is pleasant lying comfortably in bed with friend at bedside. Patient okay to discuss current care plan with friend present. Patient has no complaints denying chest pain, shortness a breath, nausea / vomiting, and abdo [place] pain. She remains on her baseline 2-3 L nasal cannula. However on auscultation of her lungs the sound course so I will obtain a chest x-ray to re- evaluate. She remains on Rocephin and Flagyl and white count has returned to normal. Encourage patient to work with therapy given IM prior to admission she was able to stand and pivot to chair. Therapy is recommending intermediate facility at time of discharge and care coordination Is following. Review of Systems Review of Systems: All systems reviewed & are unremarkable except as noted in HPI and below Exam Narrative: AF HR 68 RR 20 SPO2 100 2L NC BP 127/32 General: female in no acute respiratory distress who is nontoxic appearing, lying semi recumbent in bed. HEENT: Normocephalic. Atraumatic. Extraocular movement intact. Sclera clear and anicteric. No facial asymmetry. Chest: Lungs are coarse to auscultation bilaterally. No wheezes or crackles. Remains on 2L NC. CV: Heart was regular rate and rhythm. S1-S2. No murmurs, gallops, or rubs. Abd: Abdomen was soft. Nontender. Nondistended. Positive bowel sounds. No organomegaly or masses. Ext: No clubbing, cyanosis, or edema. 2+ DP pulses bilaterally. Neuro: Patient is alert and oriented x4. Cranial nerves 2-12 are intact. Speech is clear. Objective Data Vital Signs Vital Signs: Vital Signs - 24 hr 08/27/24 11:09 08/27/24 12:02 08/27/24 16:00 Temperature Pulse Rate 71 70 Respiratory Rate Blood Pressure Pulse Oximetry Oxygen Delivery Room Air Oxygen Flow Rate 08/27/24 16:00 08/27/24 21:12 08/27/24 20:00 Temperature 97.4 F L 97.2 F L Pulse Rate 71 69 Respiratory Rate 18 14 Blood Pressure 113/47 L 110/43 L Pulse Oximetry 95 100 Oxygen Delivery Room Air Oxygen Flow Rate 08/27/24 20:00 08/28/24 00:00 08/28/24 04:00 Temperature Pulse Rate 69 72 73 Respiratory Rate Blood Pressure Pulse Oximetry Oxygen Delivery Oxygen Flow Rate 08/28/24 05:54 08/28/24 08:41 08/28/24 08:00 Temperature 97.3 F L Pulse Rate 74 Respiratory Rate 16 Blood Pressure 120/44 L Pulse Oximetry 98 96 96 Oxygen Delivery Nasal Cannula Nasal Cannula Oxygen Flow Rate 2 2 Intake/Output Intake/Output: Intake & Output 08/25/24 08/26/24 08/27/24 08/28/24 23:59 23:59 23:59 23:59 Intake Total 3000 1195 820 300 Output Total 600 1200 1700 Balance 3000 595 380 1400 Meds/Results Medications: Active Medications Generic Name Dose Route Start Last Admin Trade Name Freq PRN Reason Stop Dose Admin Acetaminophen 650 mg 08/27/24 21:31 08/28/24 05:34 Acetaminophen 325 Mg Tablet PO 650 mg Q6H PRN Administration Mild Pain (1-3) or Fever Allopurinol 50 mg 08/26/24 09:00 08/28/24 08:37 Allopurinol 50 Mg Tablet PO 50 mg Q48H MADELINE Administration Aspirin 325 mg 08/26/24 09:00 08/28/24 08:38 Aspirin 325 Mg Tablet PO 325 mg DAILY MADELINE Administration Collagenase 1 applic 08/26/24 09:00 08/28/24 08:38 Collagenase Oint 30 Gm Tube TOPICAL 1 applic QAM MADELINE Administration Fluconazole 150 mg 08/29/24 09:00 Fluconazole 150 Mg Tablet PO 09/01/24 09:01 Q72H MADELINE Guaifenesin 600 mg 08/27/24 10:00 08/28/24 08:38 Guaifenesin 12 Hr 600 Mg Tabcr PO 09/03/24 09:59 600 mg Q12HR MADELINE Administration Heparin Sodium (Porcine) 5,000 units 08/26/24 09:00 08/28/24 08:37 Heparin Sodium 5,000 Units/Ml Vial SUB-Q 5,000 units Q12HR MADELINE Administration Ceftriaxone Sodium 2 gm in 100 mls @ 200 mls/hr 08/26/24 14:00 08/28/24 09:07 Rocephin 2 Gm/Ns 100 Ml IVPB Infused DAILY MADELINE Infusion Levothyroxine Sodium 75 mcg 08/26/24 06:30 08/28/24 05:31 Levothyroxine Sodium 75 Mcg Tablet PO 75 mcg DAILY@0630 MADELINE Administration Metronidazole 500 mg 08/26/24 22:00 08/28/24 05:31 Metronidazole 500 Mg Tablet PO 500 mg Q8HR MADELINE Administration Midodrine 10 mg 08/26/24 09:00 08/28/24 08:37 Midodrine Hcl 10 Mg Tablet PO 10 mg TID MADELINE Administration Ondansetron HCl 4 mg 08/25/24 21:16 Ondansetron Inj 4 Mg/2 Ml Vial IV PUSH Q4H PRN Nausea Umeclidinium [place] 1 puff 08/26/24 08:00 08/28/24 08:41 Umeclidinium [place] 62.5 Mcg Ellipta INHALATION 1 puff DAILYRT MADELINE Administration Radiology Results: ITS Impressions Chest X-Ray 08/25/24 18:10 IMPRESSION: Cardiomegaly, pulmonary vascular congestion and redistribution, consistent with mild congestive heart failure, mildly improved since 08/15/2024 Aortic atherosclerosis Left triple lead pacemaker Postoperative changes Foot X-Ray 08/25/24 18:30 IMPRESSION: Very prominent soft tissue ulcer at the posterior heel, with suggestion of calcaneal exposure Soft tissue swelling Prominent osteopenia; this may obscure fracture or bone destruction. If there is concern for osteomyelitis, consider three-phase radionuclide bone scan. Tibia/Fibula X-Ray 08/25/24 18:35 IMPRESSION: Osteopenia Soft tissue swelling Arterial calcifications Head CT 08/25/24 18:43 IMPRESSION: Cerebral atherosclerosis and chronic small vessel ischemic changes of the cerebral white matter Small chronic right frontal probable cerebrovascular accident No acute intracranial finding or hemorrhage Labs Labs: Laboratory Results - last 24 hr 08/27/24 08/28/24 06:45 06:22 WBC 9.7 RBC 3.06 L Hgb 7.4 L Hct 25.6 L MCV 83.7 MCH 24.2 L MCHC 28.9 L RDW 19.3 H Plt Count 250 MPV 11.6 H Immature Gran % (Auto) 0.4 Neut % (Auto) 89.6 H Lymph % (Auto) 5.7 L [place] % (Auto) 4.3 Eos % (Auto) 0.0 Baso % (Auto) 0.0 L Lymph # (Auto) 0.55 L [place] # (Auto) 0.4 Eos # (Auto) 0.0 Baso # (Auto) 0.0 Abs Immat Gran (auto) 0.04 H Absolute Neuts (auto) 8.7 H Absolute Nucleated RBC 0.000 Nucleated RBC % 0.0 Platelet Estimate Adequate Hypochromasia 1+ Basophilic Stippling 1+ Anisocytosis 1+ Target Cells 1+ Schistocytes None seen Sodium 148 H Potassium 3.3 L Chloride 106 Carbon Dioxide 36 H Anion Gap 6 BUN 115 H D Creatinine 1.60 H Estim Creat Clear Calc 28 Estimated GFR 32 L Glucose 104 Calcium 9.0 Total Bilirubin 0.5 AST 16 ALT 13 Alkaline Phosphatase 75 Total Protein 6.0 L Albumin 2.9 L Free T4 1.86 Total T3 0.49 L
--- NOTE | 2024-08-28 12:01 | P.PNNP_ITS ---
Progress Note: A&P Assessment and Plan (1) Chronic kidney disease, stage 4 (severe): Code(s): N18.4 - Chronic kidney disease, stage 4 (severe) Status: Chronic Assessment and Plan: * baseline creatinine runs ~ 1.7 - 2.2mg/dl * at baseline currently (although was elevated to 2.6mg/dl on admission) * however, her BUN is quite elevated above her baseline...(see #2) * based on outpatient evaluation, thought to be secondary to previous HTN and chronic prerenal azotemia from her CHF/cardiomyopathy with ongoing need for diuretic therapy (2) Azotemia: Code(s): R79.89 - Other specified abnormal findings of blood chemistry Status: Acute Assessment and Plan: * slow improvement * BUN wass quite elevated as noted on admission * suspect multifactorial: * previous steroid use on last hospitalization * use of doxycyline (tetracycline antibiotics have been known to do this) * prerenal factors (volume depletion/diminished oral intake) * ongoing diuretic therapy * inflammation (new infection?) * r/o GI blood loss * agree with holding diuretics/Entresto for now * interestingly, BUN did improve with IVF boluses on admission * suspect a contributing component to confusion * if this fails to improve with conservative therapy, dialysis is a consideration... * however, I worry that dialysis may push her to ESRD status * consider trial of further IVFs if respiratory status tolerates...but her CXR is concerning for fluid retention already * is this a situation where she is intravascularly dry (due to diminished oral intake) despite outward signs of volume overload? * her rising/elevated sodium would support this * follow trend of repeat labs (3) Hypernatremia: Code(s): E87.0 - Hyperosmolality and hypernatremia Status: Acute Assessment and Plan: * this would suggest she is not drinking enough water * may need to consider D5W IVFs if persists * try to encourage more free water intake * follow trend for now (4) Hypotension: Qualifiers: Hypotension type: hypotension due to hypovolemia Qualified Code(s): E86.1 - Hypovolemia Code(s): I95.9 - Hypotension, unspecified Status: Acute Assessment and Plan: * has a chronic component at baseline * started on midodrine on last hospitalization * midodrine was on hold on re-admission but has been restarted * follow trend of hemodynamics (5) Metabolic encephalopathy: Code(s): G93.41 - Metabolic encephalopathy Status: Acute Assessment and Plan: * due to uremia/azotemia +/- infection (?) * seems better now * CT of head negative for any acute findings * follow mentation (6) Anemia: Code(s): D64.9 - Anemia, unspecified Status: Acute Assessment and Plan: * as noted * previously with iron deficiency * will recheck anemia studies * consider empiric IGNACIA * follow trend of H/H (7) Cardiomyopathy: Qualifiers: Cardiomyopathy type: ischemic Qualified Code(s): I25.5 - Ischemic cardiomyopathy Code(s): I42.9 - Cardiomyopathy, unspecified Status: Acute Assessment and Plan: * known history * however. recent echo with improved EF to 55% * follow volume status closely * Cardiology following (8) Ulcer of left heel: Code(s): L97.429 - Non-pressure chronic ulcer of left heel and midfoot with unspecified severity Status: Acute Assessment and Plan: * s/p intervention on last hospitalization * General Surgery following * no intervention needed at this time * local wound care Will continue to follow Subjective Date/time seen: 08/28/24 12:01 Interval history: Follow-up for chronic kidney disease and azotemia/elevated BUN. Improvement noted in renal function/creatinine and BUN with holding diuretics/cardiac medications; better urine output noted in the last 24 hours as well; mentation still seems to fluctuate from when I last saw her as well as nursing report; no acute distress voiced at the time of my visit. Exam Narrative: General: elderly but WD/WN female in NAD Heart: normal S1 and S2; no rub Lungs: coarse breath sounds, particularly at bases Abdomen: soft, nontender, nondistended, positive bowel sounds Extremities: no cyanosis or clubbing; trace edema Skin: left foot dressings apparent Objective Data Vital Signs Vital Signs: Vital Signs Temp Pulse Resp BP Pulse Ox O2 Del Method O2 Flow Rate 08/28/24 08:00 72 08/28/24 08:00 97.4 F L 72 20 118/51 L 99 08/28/24 08:00 96 Nasal Cannula 2 08/28/24 08:41 96 Nasal Cannula 2 08/28/24 05:54 97.3 F L 74 16 120/44 L 98 08/28/24 04:00 73 08/28/24 00:00 72 08/27/24 20:00 69 08/27/24 20:00 Room Air 08/27/24 21:12 97.2 F L 69 14 110/43 L 100 08/27/24 16:00 97.4 F L 71 18 113/47 L 95 08/27/24 16:00 70 Intake/Output Intake/Output: Intake & Output 08/25/24 08/26/24 08/27/24 08/28/24 23:59 23:59 23:59 23:59 Intake Total 3000 1195 820 522 Output Total 600 1200 1700 Balance 3000 385 [phone] Meds/Results Medications: Active Medications Generic Name Dose Route Start Last Admin Trade Name Freq PRN Reason Stop Dose Admin Acetaminophen 650 mg 08/27/24 21:31 08/28/24 05:34 Acetaminophen 325 Mg Tablet PO 650 mg Q6H PRN Administration Mild Pain (1-3) or Fever Allopurinol 50 mg 08/26/24 09:00 08/28/24 08:37 Allopurinol 50 Mg Tablet PO 50 mg Q48H MADELINE Administration Aspirin 325 mg 08/26/24 09:00 08/28/24 08:38 Aspirin 325 Mg Tablet PO 325 mg DAILY MADELINE Administration Collagenase 1 applic 08/26/24 09:00 08/28/24 08:38 Collagenase Oint 30 Gm Tube TOPICAL 1 applic QAM MADELINE Administration Fluconazole 150 mg 08/29/24 09:00 Fluconazole 150 Mg Tablet PO 09/01/24 09:01 Q72H MADELINE Guaifenesin 600 mg 08/27/24 10:00 08/28/24 08:38 Guaifenesin 12 Hr 600 Mg Tabcr PO 09/03/24 09:59 600 mg Q12HR MADELINE Administration Heparin Sodium (Porcine) 5,000 units 08/26/24 09:00 08/28/24 08:37 Heparin Sodium 5,000 Units/Ml Vial SUB-Q 5,000 units Q12HR MADELINE Administration Ceftriaxone Sodium 2 gm in 100 mls @ 200 mls/hr 08/26/24 14:00 08/28/24 09:07 Rocephin 2 Gm/Ns 100 Ml IVPB Infused DAILY MADELINE Infusion Levothyroxine Sodium 75 mcg 08/26/24 06:30 08/28/24 05:31 Levothyroxine Sodium 75 Mcg Tablet PO 75 mcg DAILY@0630 MADELINE Administration Metronidazole 500 mg 08/26/24 22:00 08/28/24 13:09 Metronidazole 500 Mg Tablet PO 500 mg Q8HR MADELINE Administration Midodrine 10 mg 08/26/24 09:00 08/28/24 13:09 Midodrine Hcl 10 Mg Tablet PO 10 mg TID MADELINE Administration Ondansetron HCl 4 mg 08/25/24 21:16 Ondansetron Inj 4 Mg/2 Ml Vial IV PUSH Q4H PRN Nausea Umeclidinium [place] 1 puff 08/26/24 08:00 08/28/24 08:41 Umeclidinium [place] 62.5 Mcg Ellipta INHALATION 1 puff DAILYRT MADELINE Administration Radiology Results: ITS Impressions Chest X-Ray 08/25/24 18:10 IMPRESSION: Cardiomegaly, pulmonary vascular congestion and redistribution, consistent with mild congestive heart failure, mildly improved since 08/15/2024 Aortic atherosclerosis Left triple lead pacemaker Postoperative changes Foot X-Ray 08/25/24 18:30 IMPRESSION: Very prominent soft tissue ulcer at the posterior heel, with suggestion of calcaneal exposure Soft tissue swelling Prominent osteopenia; this may obscure fracture or bone destruction. If there is concern for osteomyelitis, consider three-phase radionuclide bone scan. Tibia/Fibula X-Ray 08/25/24 18:35 IMPRESSION: Osteopenia Soft tissue swelling Arterial calcifications Head CT 08/25/24 18:43 IMPRESSION: Cerebral atherosclerosis and chronic small vessel ischemic changes of the cerebral white matter Small chronic right frontal probable cerebrovascular accident No acute intracranial finding or hemorrhage Labs Labs: Laboratory Tests 08/28/24 06:22 08/28/24 06:22 Calcium 9.0 Total Bilirubin 0.5 AST 16 ALT 13 Alkaline Phosphatase 75 Total Protein 6.0 L Albumin 2.9 L
[2024-08-28] MEDS: POTASSIUM CHLORIDE 20 MEQ ER TABLET 40 MEQ PO (13:09)
[2024-08-28] MEDS: EPOETIN ALFA-EPBX 20,000 UNITS/ML VIAL 20000 UNITS SUB-Q (16:19)
--- NOTE | 2024-08-28 22:26 | ECG_ITS ---
Test Date: 2024-08-28 22:38:26 Measurements Intervals [place] Rate: 146 P: 0 [place]: 0 QRS: -8 QRSD: 120 T: 143 QT: 217 QTc: 339 Interpretive Statements ATRIAL FIBRILLATION WITH RAPID VENTRICULAR RESPONSE ANTEROSEPTAL MYOCARDIAL INFARCTION , PROBABLY OLD [40+ ms Q WAVE IN V1-V4] ST DEPRESSION, CONSIDER SUBENDOCARDIAL INJURY [0.1+ mV ST DEPRESSION] Compared to ECG 08/25/2024 21:18:34 Myocardial infarct finding now present ST (T wave) deviation now present Ventricular-paced complex(es) or rhythm no longer present Electronically Signed On 08-29-2024 11:42:27 CDT by Yash Nelson M.D.
[2024-08-28 23:02] LABS: Basophils Percent Auto 0.2 % (0.2-1.2); Hematocrit 25.9 % (37.0-47.0); Hemoglobin 7.8 g/dL (12.0-15.0); Immature Granulocyte Absolute 0.16 K/mm3 (0.00-0.031); Immature Granulocyte Percent A 1.3 % (0-0.5); Lymphocytes Absolute Auto 0.49 K/mm3 (0.9-3.2); Lymphocytes Percent Auto 4.1 % (18.3-44.2); Mean Corpuscular HGB Conc 30.1 g/dl (32-36); Mean Corpuscular Hemoglobin 24.9 pg (26-34); Mean Corpuscular Volume 82.7 fl (80-100); Mean Platelet Volume 11.8 fl (7.4-10.4); Monocytes Absolute Auto 0.5 K/mm3 (0.1-0.6); Neutrophils Absolute Auto 10.7 K/mm3 (1.3-6.7); Neutrophils Percent Auto 90.4 % (45.5-73.1); Platelet Count Result 270 k/mm3 (150-375); Red Blood Count 3.13 M/mm3 (4.2-5.4); Red Cell Distribution Width 19.3 % (11.5-14.5); White Blood Count 11.9 K/mm3 (4.5-10.0)
[2024-08-28 23:12] LABS: Lactic Acid Reflex 1.2 mmol/L (0.7-2.0)
[2024-08-28 23:15] LABS: Anion Gap 7 mmol/L (4-12); Blood Urea Nitrogen 101 mg/dL (7-17); Calcium 9.2 mg/dL (8.4-10.2); Carbon Dioxide 36 mmol/L (22-30); Chloride 108 mmol/L (98-107); Estimated CRCL calculation 28 ml/min; Estimated Glomerular Filt Rate 32; Glucose 143 mg/dL (65-110); Magnesium 1.7 mg/dL (1.6-2.3); Phosphorus 3.1 mg/dL (2.5-4.5); Potassium 3.8 mmol/L (3.4-5.0); Sodium 151 mmol/L (137-145)
[2024-08-28 23:37] LABS: Glucose Point of Care 148 mg/dl (65-105)
[2024-08-28 23:40] LABS: Troponin I 0.179 ng/mL (0.000-0.034)
--- NOTE | 2024-08-28 23:45 | P.PNCROSS_ITS ---
Event Note Event Note Event Note: 08/28/2024 at 22:45 Rapid response was called patient when the patient developed sudden change in heart rhythm with tachycardia and associated tachypnea. The patient developed labored respirations. Patient was found to be in AFib with RVR. Patient was sitting upright in bed with head of bed almost at 90?. Patient is having respiratory accessory muscle use and tachypnea. Stat chest x-ray was performed which demonstrated worsening infiltrate. EKG performed demonstrated AFib with RVR. Patient's blood pressures were in the 90 systolic which is at the patient's baseline. Patient is on chronic midodrine. During the course of the rapid response the patient spiked a temperature up to 99.7. Stat labs including CMP Mag phos lactic acid and troponin were ordered. Lactic acid was normal CMP demonstrated patient's chronic renal failure magnesium and potassium were stab le. Troponin was flat compared to prior. The patient's heart rate remained tachycardic in the 120s- 150s. The patient's lab trends were reviewed. Patient did have blood cultures that were obtained less than 48 hours ago that her negative to date. Repeat COVID 12 was obtained which was negative. The patient has been on Rocephin and Flagyl since admission. It is unclear if the patient is still on vancomycin. Initially was supposed the patient may have bacteremia or infection to her chronic wounds on her feet and leg but these actually appear to have clean bases and no associated erythema. The patient is altered and is only answering questions yes or no. In although her mentation is not normal it is improved from when I had admitted her 3 or 4 days prior. She is still only intermittently following commands. She denies any pain. I do not feel comfortable giving the patient additional diuretics or beta-jason given her chronic hypotension. Subsequently will transfer the patient to IMU for amiodarone drip. The patient is already on Amaryl or known at baseline so I will avoid giving the amiodarone bolus and will only place her on the infusion. Patient does have some hypernatremia the patient does not want to drink any fluids. She would likely benefit from some free water but I would like to avoid giving additional inter venous fluids given the increasing interstitial pattern on her x-ray. Patient has been moved to IMU for closer monitoring. Amiodarone Placed on amiodarone drip. Will defer management of hypernatremia and fluid status to nephrology and cardiology services. Patient does remain on antibiotics. Her white count did increase modestly and she had some borderline temperatures of 99.7 which I visualized on the vitals machine. One staff member notified me of patient having temperature of 100.1? but this was not documented. I do not have a source of infection to indicate changing the patient's antibiotics. Possibly the patient may have an underlying pneumonia. However the patient's oxygen requirement remains unchanged. Patient remains altered this is likely due to combination of uremia and or infection. Patient does not have any new localizing deficits at the time of my review. 50 minute spent in critical care activities Due to a high probability of clinically significant, life threatening deterioration, the patient required my highest level of preparedness to intervene emergently and I personally spent this critical care time directly and personally managing the patient. This critical care time included obtaining a history; examining the patient; pulse oximetry; ordering and review of studies; arranging urgent treatment with development of a management plan; evaluation of patient's response to treatment; frequent reassessment; and discussions with other providers. It was exclusive of separately billable procedures and treating other patients and teaching time. Please see Assessment and Plan section and the rest of the note for further information on patient assessment and treatment.
[2024-08-28 23:47] LABS: Influenza A QL RT-PCR Negative (Negative); Influenza B QL RT-PCR Negative (Negative); RSV RNA, RT-PCR Negative (Negative); SARS-CoV-2 RNA PCR Negative (Negative)
[2024-08-29] VITALS (24 sets, daily range): BP systolic 92–122; BP diastolic 42–92; PULSE 71–135; RESP 18–28; TEMP 36.5–37.2; O2SAT 92–100
[2024-08-29] MEDS: AMIODARONE 360 MG/D5W 200 ML 360 MG/200 ML BAG 16.67 MG IV CONT ×2 (01:00→10:08)
[2024-08-29 01:28] LABS: Add Urine Microscopic? YES; Appearance Urine Cloudy (Clear); Bacteria Urine None Seen /hpf; Bilirubin Urine Negative (Negative); Blood Urine 1+ (Negative); Color Urine Yellow (Yellow); Glucose Urine UA Negative (Negative); Ketones Urine Negative (Negative); Leukocyte Esterase Ur 1+ LEU/UL (Negative); Need Manual Microscopic Reviewed; Nitrate Urine Negative (Negative); Non Pathogenic Casts >20; Protein Urine Trace mg/dL (Negative); RBC Urine 21-50 /hpf (0-2); Specific Grav Ur 1.014 (1.001-1.035); Squamous Epithelial Cell Urine Occasional /hpf (Few); Urobilinogen Urine 0.2 mg/dL (<2.0)
[2024-08-29 03:03] LABS: Troponin I 0.369 ng/mL (0.000-0.034)
--- NOTE | 2024-08-29 04:30 | ECG_ITS ---
Test Date: 2024-08-29 09:45:21 Measurements Intervals [place] Rate: 110 P: 247 [place]: 157 QRS: -29 QRSD: 182 T: 97 QT: 405 QTc: 549 Interpretive Statements ATRIAL FIBRILLATION WITH RAPID VENTRICULAR RESPONSE BORDERLINE LEFT AXIS DEVIATION [QRS AXIS < -20] INTRAVENTRICULAR CONDUCTION DELAY [130+ ms QRS DURATION] ST Depression, consider subendocardial injury Compared to ECG 08/28/2024 22:38:26 Intraventricular conduction delay now present Atrial fibrillation no longer present Myocardial infarct finding no longer present ST (T wave) deviation no longer present Electronically Signed On 08-29-2024 11:48:41 CDT by Yash Nelson M.D.
[2024-08-29 05:03] LABS: Hepatitis B Core Ab Total NON-REACTIVE (NON-REACTIVE)
[2024-08-29] MEDS: LEVOTHYROXINE SODIUM 75 MCG TABLET PO (06:00)
[2024-08-29] MEDS: metroNIDAZOLE 500 MG TABLET PO ×2 (06:00→13:04)
[2024-08-29 06:37] LABS: Basophils Percent Auto 0.1 % (0.2-1.2); Hematocrit 25.8 % (37.0-47.0); Hemoglobin 7.5 g/dL (12.0-15.0); Immature Granulocyte Percent A 0.9 % (0-0.5); Lymphocytes Absolute Auto 0.57 K/mm3 (0.9-3.2); Lymphocytes Percent Auto 5.3 % (18.3-44.2); Mean Corpuscular HGB Conc 29.1 g/dl (32-36); Mean Corpuscular Hemoglobin 24.4 pg (26-34); Mean Platelet Volume 12.2 fl (7.4-10.4); Monocytes Absolute Auto 0.5 K/mm3 (0.1-0.6); Monocytes Percent Auto 4.4 % (2.6-8.5); Neutrophils Absolute Auto 9.5 K/mm3 (1.3-6.7); Neutrophils Percent Auto 89.3 % (45.5-73.1); Platelet Count Result 247 k/mm3 (150-375); Red Blood Count 3.07 M/mm3 (4.2-5.4); Red Cell Distribution Width 19.5 % (11.5-14.5); White Blood Count 10.7 K/mm3 (4.5-10.0)
[2024-08-29 06:44] LABS: Alanine Aminotransferase 14 U/L (6-35); Alkaline Phosphatase 77 U/L (38-126); Anion Gap 7 mmol/L (4-12); Aspartate Amino Transferase 18 U/L (14-36); Bilirubin,Total 0.5 mg/dL (0.2-1.3); Blood Urea Nitrogen 105 mg/dL (7-17); Calcium 9.2 mg/dL (8.4-10.2); Carbon Dioxide 38 mmol/L (22-30); Chloride 108 mmol/L (98-107); Estimated CRCL calculation 28 ml/min; Estimated Glomerular Filt Rate 32; Glucose 138 mg/dL (65-110); Potassium 3.8 mmol/L (3.4-5.0); Sodium 153 mmol/L (137-145)
[2024-08-29 07:10] LABS: Iron 16 ug/dL (37-170)
[2024-08-29 07:20] LABS: Percent Iron Saturation 9 % (20-50)
[2024-08-29 07:50] LABS: Folic Acid 5.4 ng/mL (2.76->20)
[2024-08-29] MEDS: UMECLIDINIUM BROMIDE 62.5 MCG ELLIPTA 1 PUFF INHALATION (08:23)
[2024-08-29] MEDS: cefTRIAXone 2 GM/NS 100 ML 2 GM/100 ML BAG IVPB (08:46)
[2024-08-29] MEDS: guaiFENesin 12 HR 600 MG TABCR PO (08:47)
[2024-08-29] MEDS: HEPARIN SODIUM 5,000 UNITS/ML VIAL 5000 UNITS SUB-Q ×2 (08:47→21:18)
[2024-08-29] MEDS: MIDODRINE HCL 10 MG TABLET PO ×3 (08:47→18:03)
[2024-08-29] MEDS: FLUCONAZOLE 150 MG TABLET PO (08:47)
[2024-08-29] MEDS: ASPIRIN 325 MG TABLET PO (08:47)
[2024-08-29] MEDS: EPOETIN ALFA-EPBX 10,000 UNITS/ML VIAL 10000 UNITS SUB-Q (08:52)
[2024-08-29] MEDS: COLLAGENASE OINT 30 GM TUBE 1 APPLIC TOPICAL (08:52)
[2024-08-29] MEDS: DEXTROSE 5% IN WATER 500 ML 50 ML IV CONT (10:12)
--- NOTE | 2024-08-29 10:49 | P.PNCA_ITS ---
Progress Note: A&P Assessment and Plan (1) Critical limb ischemia of both lower extremities: Code(s): I70.223 - Atherosclerosis of robinson arteries of extremities with rest pain, bilateral legs Status: Acute (2) CAD (coronary artery disease): Qualifiers: Coronary Disease-Associated Artery/Lesion type: robinson artery [place] vs. transplanted heart: robinson heart Associated angina: without angina Qualified Code(s): I25.10 - Atherosclerotic heart disease of robinson coronary artery without angina pectoris Code(s): I25.10 - Atherosclerotic heart disease of robinson coronary artery without angina pectoris Status: Chronic (3) Cardiomyopathy: Qualifiers: Cardiomyopathy type: ischemic Qualified Code(s): I25.5 - Ischemic cardiomyopathy Code(s): I42.9 - Cardiomyopathy, unspecified Status: Acute Plan 74 year old female with CAD s/p CABG (BARR-LAD, SVG-RI), paroxysmal atrial fibrillation, heart failure with reduced LVEF s/p biventricular ICD, mitral regurgitation s/p bioprosthetic mitral valve replacement with a 31mm Gilbert bioprosthesis, tricuspid valve repair, chronic kidney disease stage 4 who was admitted for sepsis Critical limb ischemia -she will eventually require lower extremity angiography when she recovers from her sepsis and her kidney function stabilizes -most likely can be done outpatient with wv Persistent atrial fibrillation - Continue amiodarone drip Chronic Heart failure with reduced LVEF status post biventricular ICD, now recovered -continue holding medications giving her midodrine requirements -she appears euvolemic today CAD s/p CABG (BARR-LAD, SVG-RI) -continue aspirin mitral regurgitation s/p bioprosthetic mitral valve replacement with a 31mm Gilbert bioprosthesis -normal function valve on echocardiogram performed earlier this month Subjective Date/time seen: 08/29/24 10:49 Interval history: 74 year old female with CAD s/p CABG (BARR-LAD, SVG-RI), paroxysmal atrial fibrillation, heart failure with reduced LVEF s/p biventricular ICD, mitral regurgitation s/p bioprosthetic mitral valve replacement with a 31mm Gilbert bioprosthesis, tricuspid valve repair, chronic kidney disease stage 4. Patient follows with Dr. Gupta in the office. Recently admitted to [facility] for septic shock. Patient admitted to [facility] on 08/25 for altered mental status, unable to get out of bed. She was noted to be hypotensive on admission. Had FRANK on CKD. Her CHF meds have been placed on hold given FRANK on CK D and hypotension. She has been started on Midodrine. 08/29 -she had episode atrial fibrillation rapid ventricular rate for which she was started on amiodarone drip. She appears to be in pain today and did not want to be bothered; however she denies any shortness of breath or chest pain. She does have lower extremity wounds bilaterally with abnormal Doppler studies Review of Systems Cardiovascular: Cardiovascular: Reports as per HPI Exam Const: General: uncomfortable HENMT: Mouth: Yes moist mucous membranes Neck: Neck: no JVD Resp: Auscultation: clear to auscultation bilaterally Cardio: Rate: regular rate Rhythm: regular rhythm Extrem: General: edema Other: Wounds on both lower extremities Objective Data Vital Signs Vital Signs: Vital Signs - 24 hr 08/28/24 14:00 08/28/24 12:00 08/28/24 16:00 Temperature 36.1 C L Pulse Rate 68 70 72 Respiratory Rate 20 Blood Pressure 127/32 L Pulse Oximetry 100 Oxygen Delivery Oxygen Flow Rate 08/28/24 21:47 08/28/24 22:30 08/28/24 20:00 Temperature 36.8 C Pulse Rate 107 H 138 H 138 H Respiratory Rate 16 24 H 24 H Blood Pressure 115/66 Pulse Oximetry 92 99 99 Oxygen Delivery Nasal Cannula Oxygen Flow Rate 2 08/28/24 23:06 08/28/24 23:20 08/28/24 23:51 Temperature Pulse Rate 134 H 143 H Respiratory Rate Blood Pressure 98/71 L 112/66 110/95 H Pulse Oximetry 99 Oxygen Delivery Oxygen Flow Rate 08/28/24 20:00 08/28/24 22:30 08/29/24 01:00 Temperature Pulse Rate 106 H 140 H 135 H Respiratory Rate 20 Blood Pressure 115/66 92/52 L Pulse Oximetry 96 Oxygen Delivery Nasal Cannula Oxygen Flow Rate 2 08/29/24 00:36 08/29/24 00:38 08/29/24 00:00 Temperature 37.2 C 37.2 C Pulse Rate 135 H 130 H Respiratory Rate 23 H Blood Pressure 92/52 L Pulse Oximetry 100 Oxygen Delivery Oxygen Flow Rate 08/29/24 01:54 08/29/24 02:00 08/29/24 04:00 Temperature Pulse Rate 112 H 117 H 126 H Respiratory Rate Blood Pressure 111/92 H Pulse Oximetry Oxygen Delivery Oxygen Flow Rate 08/29/24 04:00 08/29/24 04:27 08/29/24 06:00 Temperature 36.8 C Pulse Rate 111 H 120 H 104 H Respiratory Rate 22 H Blood Pressure 104/59 L 99/64 L Pulse Oximetry 100 Oxygen Delivery Oxygen Flow Rate 08/29/24 06:00 08/29/24 06:00 08/29/24 07:42 Temperature 36.5 C Pulse Rate 119 H 123 H Respiratory Rate 20 Blood Pressure 104/55 L 104/55 L 104/63 Pulse Oximetry 100 Oxygen Delivery Oxygen Flow Rate 08/29/24 08:24 08/29/24 10:00 08/29/24 10:08 Temperature 36.6 C Pulse Rate 95 71 105 H Respiratory Rate 20 18 Blood Pressure 122/55 L Pulse Oximetry 100 Oxygen Delivery Oxygen Flow Rate 08/29/24 10:08 Temperature Pulse Rate 105 H Respiratory Rate Blood Pressure Pulse Oximetry Oxygen Delivery Oxygen Flow Rate Intake/Output Intake/Output: Intake & Output 08/26/24 08/27/24 08/28/24 08/29/24 23:59 23:59 23:59 23:59 Intake Total 1195 820 522 152.2 Output Total 600 1200 2450 300 Balance 595 -380 -1928 -147.8 Meds/Results Medications: Active Medications Generic Name Dose Route Start Last Admin Trade Name Freq PRN Reason Stop Dose Admin Acetaminophen 650 mg 08/27/24 21:31 08/28/24 23:47 Acetaminophen 325 Mg Tablet PO 650 mg Q6H PRN Administration Mild Pain (1-3) or Fever Allopurinol 50 mg 08/26/24 09:00 08/28/24 08:37 Allopurinol 50 Mg Tablet PO 50 mg Q48H [facility] Administration Aspirin 325 mg 08/26/24 09:00 08/29/24 08:47 Aspirin 325 Mg Tablet PO 325 mg DAILY [facility] Administration Collagenase 1 applic 08/26/24 09:00 08/29/24 08:52 Collagenase Oint 30 Gm Tube TOPICAL 1 applic QAM [facility] Administration Dronabinol 2.5 mg 08/29/24 17:00 Dronabinol (*Crx) 2.5 Mg Capsule PO BID [facility] Epoetin Crispin-epbx 10,000 units 08/29/24 09:00 08/29/24 08:52 Epoetin Crispin-Epbx 10,000 Units/Ml Vial SUB-Q 10,000 units TUTHSA@09 MADELINE Administration Fluconazole 150 mg 08/29/24 09:00 08/29/24 08:47 Fluconazole 150 Mg Tablet PO 09/01/24 09:01 150 mg Q72H MADELINE Administration Guaifenesin 600 mg 08/27/24 10:00 08/29/24 08:47 Guaifenesin 12 Hr 600 Mg Tabcr PO 09/03/24 09:59 600 mg Q12HR MADELINE Administration Heparin Sodium (Porcine) 5,000 units 08/26/24 09:00 08/29/24 08:47 Heparin Sodium 5,000 Units/Ml Vial SUB-Q 5,000 units Q12HR MADELINE Administration Ceftriaxone Sodium 2 gm in 100 mls @ 200 mls/hr 08/26/24 14:00 08/29/24 08:46 Rocephin 2 Gm/Ns 100 Ml IVPB 200 mls/hr DAILY MADELINE Administration Amiodarone HCl/Dextrose 360 mg in 200 mls @ 16.667 mls/hr 08/29/24 00:30 08/29/24 10:08 Nexterone 360 Mg/D5w 200 Ml IV CONT 0.5 mg/min .Q12H MADELINE 16.67 mls/hr Administration 0.5 MG/MIN Dextrose 500 mls @ 50 mls/hr 08/29/24 09:00 08/29/24 10:12 Dextrose 5% In Water IV CONT 08/29/24 18:59 50 mls/hr .Q10H MADELINE Administration Levothyroxine Sodium 75 mcg 08/26/24 06:30 08/29/24 06:00 Levothyroxine Sodium 75 Mcg Tablet PO 75 mcg DAILY@0630 MADELINE Administration Metronidazole 500 mg 08/26/24 22:00 08/29/24 06:00 Metronidazole 500 Mg Tablet PO 500 mg Q8HR MADELINE Administration Midodrine 10 mg 08/26/24 09:00 08/29/24 08:47 Midodrine Hcl 10 Mg Tablet PO 10 mg TID MADELINE Administration Umeclidinium [place] 1 puff 08/26/24 08:00 08/29/24 08:23 Umeclidinium [place] 62.5 Mcg Ellipta INHALATION 1 puff DAILYRT MADELINE Administration Radiology Results: ITS Impressions Foot X-Ray 08/25/24 18:30 IMPRESSION: Very prominent soft tissue ulcer at the posterior heel, with suggestion of calcaneal exposure Soft tissue swelling Prominent osteopenia; this may obscure fracture or bone destruction. If there is concern for osteomyelitis, consider three-phase radionuclide bone scan. Tibia/Fibula X-Ray 08/25/24 18:35 IMPRESSION: Osteopenia Soft tissue swelling Arterial calcifications Head CT 08/25/24 18:43 IMPRESSION: Cerebral atherosclerosis and chronic small vessel ischemic changes of the cerebral white matter Small chronic right frontal probable cerebrovascular accident No acute intracranial finding or hemorrhage Labs Labs: Laboratory Results - last 24 hr 08/27/24 08/28/24 08/28/24 06:45 01:06 22:29 WBC RBC Hgb Hct MCV MCH MCHC RDW Plt Count MPV Immature Gran % (Auto) Neut % (Auto) Lymph % (Auto) Stevens % (Auto) Eos % (Auto) Baso % (Auto) Lymph # (Auto) Stevens # (Auto) Eos # (Auto) Baso # (Auto) Abs Immat Gran (auto) Absolute Neuts (auto) Absolute Nucleated RBC Nucleated RBC % Sodium Potassium Chloride Carbon Dioxide Anion Gap BUN Creatinine Estim Creat Clear Calc Estimated GFR Glucose POC Capillary Glucose 148 H Lactic Acid Calcium Phosphorus Magnesium Iron TIBC % Saturation Ferritin Total Bilirubin AST ALT Alkaline Phosphatase Troponin I Total Protein Albumin Vitamin B12 Folate Urine Color Yellow Urine Appearance Cloudy H Urine pH 5.0 Ur Specific [place] 1.014 Urine Protein Trace Urine Glucose (UA) Negative Urine Ketones Negative Ur Blood (Man) 1+ H Urine Nitrate Negative Urine Bilirubin Negative Urine Urobilinogen 0.2 Add Ur Microanalysis Reviewed Leukocyte Esterase Rfl 1+ H Urine RBC 21-50 H Urine WBC 11-20 H Ur Squamous Epith Cells Occasional Urine Bacteria None seen Urine Casts >20 Hep B Core Total Ab Non-reactive Influenza A (RT-PCR) Influenza B (RT-PCR) RSV (RT-PCR) SARS-CoV-2 RNA (RT-PCR) 08/28/24 08/28/24 08/29/24 22:57 23:03 02:31 WBC 11.9 H RBC 3.13 L Hgb 7.8 L Hct 25.9 L MCV 82.7 MCH 24.9 L MCHC 30.1 L RDW 19.3 H Plt Count 270 MPV 11.8 H Immature Gran % (Auto) 1.3 H Neut % (Auto) 90.4 H Lymph % (Auto) 4.1 L Stevens % (Auto) 4.0 Eos % (Auto) 0.0 Baso % (Auto) 0.2 Lymph # (Auto) 0.49 L Stevens # (Auto) 0.5 Eos # (Auto) 0.0 Baso # (Auto) 0.0 Abs Immat Gran (auto) 0.16 H Absolute Neuts (auto) 10.7 H Absolute Nucleated RBC 0.000 Nucleated RBC % 0.0 Sodium 151 H Potassium 3.8 Chloride 108 H Carbon Dioxide 36 H Anion Gap 7 BUN 101 H D Creatinine 1.60 H Estim Creat Clear Calc 28 Estimated GFR 32 L Glucose 143 H POC Capillary Glucose Lactic Acid 1.2 Calcium 9.2 Phosphorus 3.1 Magnesium 1.7 Iron TIBC % Saturation Ferritin Total Bilirubin AST ALT Alkaline Phosphatase Troponin I 0.179 H* 0.369 H* D Total Protein Albumin Vitamin B12 Folate Urine Color Urine Appearance Urine pH Ur Specific [place] Urine Protein Urine Glucose (UA) Urine Ketones Ur Blood (Man) Urine Nitrate Urine Bilirubin Urine Urobilinogen Add Ur Microanalysis Leukocyte Esterase Rfl Urine RBC Urine WBC Ur Squamous Epith Cells Urine Bacteria Urine Casts Hep B Core Total Ab Influenza A (RT-PCR) Negative Influenza B (RT-PCR) Negative RSV (RT-PCR) Negative SARS-CoV-2 RNA (RT-PCR) Negative 08/29/24 06:22 WBC 10.7 H RBC 3.07 L Hgb 7.5 L Hct 25.8 L MCV 84.0 MCH 24.4 L MCHC 29.1 L RDW 19.5 H Plt Count 247 MPV 12.2 H Immature Gran % (Auto) 0.9 H Neut % (Auto) 89.3 H Lymph % (Auto) 5.3 L Stevens % (Auto) 4.4 Eos % (Auto) 0.0 Baso % (Auto) 0.1 L Lymph # (Auto) 0.57 L Stevens # (Auto) 0.5 Eos # (Auto) 0.0 Baso # (Auto) 0.0 Abs Immat Gran (auto) 0.10 H Absolute Neuts (auto) 9.5 H Absolute Nucleated RBC 0.000 Nucleated RBC % 0.0 Sodium 153 H Potassium 3.8 Chloride 108 H Carbon Dioxide 38 H Anion Gap 7 BUN 105 H Creatinine 1.60 H Estim Creat Clear Calc 28 Estimated GFR 32 L Glucose 138 H POC Capillary Glucose Lactic Acid Calcium 9.2 Phosphorus Magnesium Iron 16 L TIBC 175 L % Saturation 9 L Ferritin 339.00 H Total Bilirubin 0.5 AST 18 ALT 14 Alkaline Phosphatase 77 Troponin I 0.490 H* D Total Protein 7.0 Albumin 3.0 L Vitamin B12 833.0 Folate 5.4 Urine Color Urine Appearance Urine pH Ur Specific [place] Urine Protein Urine Glucose (UA) Urine Ketones Ur Blood (Man) Urine Nitrate Urine Bilirubin Urine Urobilinogen Add Ur Microanalysis Leukocyte Esterase Rfl Urine RBC Urine WBC Ur Squamous Epith Cells Urine Bacteria Urine Casts Hep B Core Total Ab Influenza A (RT-PCR) Influenza B (RT-PCR) RSV (RT-PCR) SARS-CoV-2 RNA (RT-PCR)
--- NOTE | 2024-08-29 12:12 | PCNFU ---
Nutrition Follow-Up Complete: Increased nutrient needs related to altered skin integrity as evidenced by noted pressure injuries Goal:PO intake 75% of meals and supplements Pt not meeting goal. Pt current nutrition is heart healthy, soft and bite sized level 6, ROBERT BID . Nutrition recommendation: Add Ensure compact TID for additional nutrition support - 220kcals, 9g protein per shake Last recorded weight is 81.5 kg. Bowel Motility: +BM 08/29 Labs Reviewed: Hgb:7.5, HCT:25.8, NA:153, GFR:32, BUN:105, Cr:1.6, Glu:138 Meds Noted: Skin: multiple areas of pressure injuries, see wound care note Additional Notes: Pt on a heart healthy diet now, soft and bite sized level 6, intake poor, refusing meals. Pt to start on a new appetite stimulant today. Will add Ensure compact TID. Encourage intake. monitor intake, wt, labs, skin. Follow up in 3 days.
--- NOTE | 2024-08-29 12:30 | P.PNNP_ITS ---
Progress Note: A&P Assessment and Plan (1) Chronic kidney disease, stage 4 (severe): Code(s): N18.4 - Chronic kidney disease, stage 4 (severe) Status: Chronic Assessment and Plan: * baseline creatinine runs ~ 1.7 - 2.2mg/dl * at baseline currently if not better(although was elevated to 2.6mg/dl on admission) * however, her BUN was quite elevated above her baseline...(see #2) * based on outpatient evaluation, thought to be secondary to previous HTN and chronic prerenal azotemia from her CHF/cardiomyopathy with ongoing need for diuretic therapy (2) Azotemia: Code(s): R79.89 - Other specified abnormal findings of blood chemistry Status: Acute Assessment and Plan: * slow improvement * BUN wass quite elevated as noted on admission * suspect multifactorial: * previous steroid use on last hospitalization * use of doxycyline (tetracycline antibiotics have been known to do this) * prerenal factors (volume depletion/diminished oral intake) * ongoing diuretic therapy * inflammation (new infection?) * r/o GI blood loss * agree with holding diuretics/Entresto for now * interestingly, BUN did improve with IVF boluses on admission * suspect a contributing component to confusion * if this fails to improve with conservative therapy, dialysis is a consideration... * however, I worry that dialysis may push her to ESRD status * consider trial of further IVFs if respiratory status tolerates...but her CXR is concerning for fluid retention already * is this a situation where she is intravascularly dry (due to diminished oral intake) despite outward signs of volume overload? * her rising/elevated sodium would support this * follow trend of repeat labs (3) Hypernatremia: Code(s): E87.0 - Hyperosmolality and hypernatremia Status: Acute Assessment and Plan: * this would suggest she is not drinking enough water * trial of D5W IVFs today * try to encourage more free water intake * follow trend for now (4) Hypotension: Qualifiers: Hypotension type: hypotension due to hypovolemia Qualified Code(s): E86.1 - Hypovolemia Code(s): I95.9 - Hypotension, unspecified Status: Acute Assessment and Plan: * has a chronic component at baseline * started on midodrine on last hospitalization * midodrine was on hold on re-admission but has been restarted * follow trend of hemodynamics (5) Metabolic encephalopathy: Code(s): G93.41 - Metabolic encephalopathy Status: Acute Assessment and Plan: * due to uremia/azotemia +/- infection (?) * seems better now * CT of head negative for any acute findings * follow mentation (6) Anemia: Code(s): D64.9 - Anemia, unspecified Status: Acute Assessment and Plan: * as noted * anemia studies with iron deficiency * on IGNACIA (Retacrit) * follow trend of H/H (7) Cardiomyopathy: Qualifiers: Cardiomyopathy type: ischemic Qualified Code(s): I25.5 - Ischemic cardiomyopathy Code(s): I42.9 - Cardiomyopathy, unspecified Status: Acute Assessment and Plan: * known history * however. recent echo with improved EF to 55% * follow volume status closely * Cardiology following (8) Ulcer of left heel: Code(s): L97.429 - Non-pressure chronic ulcer of left heel and midfoot with unspecified severity Status: Acute Assessment and Plan: * s/p intervention on last hospitalization * General Surgery following * no intervention needed at this time * local wound care Will continue to follow Subjective Date/time seen: 08/29/24 12:30 Interval history: Follow-up for chronic kidney disease and azotemia/elevated BUN. Transfered back to IMU due to atrial fibrillation with RVR and intiated on amiodaraone gtt; she states she does not feel well but would not elaborate much more than that; BUN and creatinine trending down with holding cardiac medications/diuretics with noted increase urine output but he sodium level continues to rise; not really eating or drinking much at this time as well. Exam Narrative: General: elderly but WD/WN female in NAD Heart: normal S1 and S2; no rub Lungs: coarse breath sounds; particularly at bases Abdomen: soft, nontender, nondistended, positive bowel sounds Extremities: no cyanosis or clubbing; trace - 1+ edema Skin: left foot dressings in place Objective Data Vital Signs Vital Signs: Vital Signs Temp Pulse Resp BP Pulse Ox O2 Del Method O2 Flow Rate 08/29/24 12:00 74 92 Nasal Cannula 2 08/29/24 11:26 97.7 F 76 28 H 117/56 L 92 08/29/24 10:00 73 122/55 L 08/29/24 11:20 77 122/55 L 08/29/24 10:00 73 08/29/24 08:00 105 H 08/29/24 10:08 105 H 08/29/24 10:08 105 H 08/29/24 10:00 97.9 F 71 18 122/55 L 100 08/29/24 08:24 95 20 08/29/24 07:42 97.7 F 123 H 20 104/63 100 08/29/24 06:00 104/55 L 08/29/24 06:00 119 H 104/55 L 08/29/24 06:00 104 H 08/29/24 04:27 98.3 F 120 H 22 H 99/64 L 100 08/29/24 04:00 111 H 104/59 L 08/29/24 04:00 126 H 08/29/24 02:00 117 H 111/92 H 08/29/24 01:54 112 H 08/29/24 00:00 130 H 08/29/24 00:38 99 F 08/29/24 00:36 99.0 F 135 H 23 H 92/52 L 100 08/29/24 01:00 135 H 92/52 L 08/28/24 22:30 140 H 20 115/66 96 Nasal Cannula 2 08/28/24 20:00 106 H 08/28/24 23:51 143 H 110/95 H 08/28/24 23:20 112/66 08/28/24 23:06 134 H 98/71 L 99 08/28/24 20:00 138 H 24 H 99 Nasal Cannula 2 08/28/24 22:30 138 H 24 H 115/66 99 08/28/24 21:47 98.2 F 107 H 16 92 08/28/24 16:00 72 Intake/Output Intake/Output: Intake & Output 08/26/24 08/27/24 08/28/24 08/29/24 23:59 23:59 23:59 23:59 Intake Total 1195 820 522 412.1 Output Total 600 1200 2450 300 Balance 065 -472 -3932 112.1 Meds/Results Medications: Active Medications Generic Name Dose Route Start Last Admin Trade Name Freq PRN Reason Stop Dose Admin Acetaminophen 650 mg 08/27/24 21:31 08/28/24 23:47 Acetaminophen 325 Mg Tablet PO 650 mg Q6H PRN Administration Mild Pain (1-3) or Fever Allopurinol 50 mg 08/26/24 09:00 08/28/24 08:37 Allopurinol 50 Mg Tablet PO 50 mg Q48H MAD[facility]INE Administration Aspirin 325 mg 08/26/24 09:00 08/29/24 08:47 Aspirin 325 Mg Tablet PO 325 mg DAILY M[facility]ELINE Administration Collagenase 1 applic 08/26/24 09:00 08/29/24 08:52 Collagenase Oint 30 Gm Tube TOPICAL 1 applic QAM MADELINE Administration Dronabinol 2.5 mg 08/29/24 17:00 Dronabinol (*Crx) 2.5 Mg Capsule PO BID [facility] Epoetin Crispin-epbx 10,000 units 08/29/24 09:00 08/29/24 08:52 Epoetin Crispin-Epbx 10,000 Units/Ml Vial SUB-Q 10,000 units TUTHSA@09 MADELINE Administration Fluconazole 150 mg 08/29/24 09:00 08/29/24 08:47 Fluconazole 150 Mg Tablet PO 09/01/24 09:01 150 mg Q72H MADELINE Administration Guaifenesin 600 mg 08/27/24 10:00 08/29/24 08:47 Guaifenesin 12 Hr 600 Mg Tabcr PO 09/03/24 09:59 600 mg Q12HR MADELINE Administration Heparin Sodium (Porcine) 5,000 units 08/26/24 09:00 08/29/24 08:47 Heparin Sodium 5,000 Units/Ml Vial SUB-Q 5,000 units Q12HR MADELINE Administration Ceftriaxone Sodium 2 gm in 100 mls @ 200 mls/hr 08/26/24 14:00 08/29/24 08:46 Rocephin 2 Gm/Ns 100 Ml IVPB 200 mls/hr DAILY MADELINE Administration Dextrose 500 mls @ 50 mls/hr 08/29/24 09:00 08/29/24 10:12 Dextrose 5% In Water IV CONT 08/29/24 18:59 50 mls/hr .Q10H M[facility]INE Administration Levothyroxine Sodium 75 mcg 08/26/24 06:30 08/29/24 06:00 Levothyroxine Sodium 75 Mcg Tablet PO 75 mcg DAILY@0630 MADELINE Administration Metronidazole 500 mg 08/26/24 22:00 08/29/24 13:04 Metronidazole 500 Mg Tablet PO 500 mg Q8HR MADELINE Administration Midodrine 10 mg 08/26/24 09:00 08/29/24 13:04 Midodrine Hcl 10 Mg Tablet PO 10 mg TID MADELINE Administration Umeclidinium [place] 1 puff 08/26/24 08:00 08/29/24 08:23 Umeclidinium [place] 62.5 Mcg Ellipta INHALATION 1 puff DAILYRT MADELINE Administration Radiology Results: ITS Impressions Foot X-Ray 08/25/24 18:30 IMPRESSION: Very prominent soft tissue ulcer at the posterior heel, with suggestion of calcaneal exposure Soft tissue swelling Prominent osteopenia; this may obscure fracture or bone destruction. If there is concern for osteomyelitis, consider three-phase radionuclide bone scan. Tibia/Fibula X-Ray 08/25/24 18:35 IMPRESSION: Osteopenia Soft tissue swelling Arterial calcifications Head CT 08/25/24 18:43 IMPRESSION: Cerebral atherosclerosis and chronic small vessel ischemic changes of the cerebral white matter Small chronic right frontal probable cerebrovascular accident No acute intracranial finding or hemorrhage Chest CT 08/29/24 11:08 IMPRESSION: 1. Groundglass opacities in right middle lobe and anterior segment right upper lobe, consistent with mild pulmonary edema versus atypical pneumonia. 2. Small pleural effusions. Labs Labs: Laboratory Tests 08/29/24 06:22 08/29/24 06:22 Calcium 9.2 Iron 16 L TIBC 175 L % Saturation 9 L Ferritin 339.00 H Total Bilirubin 0.5 AST 18 ALT 14 Alkaline Phosphatase 77 Troponin I 0.490 H* D Total Protein 7.0 Albumin 3.0 L Vitamin B12 833.0 Folate 5.4
--- NOTE | 2024-08-29 15:47 | P.PNIM_ITS ---
Progress Note: A&P Assessment and Plan (1) Sepsis: Qualifiers: Sepsis type: sepsis due to unspecified organism Sepsis acute organ dysfunction status: with acute organ dysfunction Severe sepsis acute organ dysfunction type: acute renal failure Acute renal failure type: unspecified Severe sepsis shock status: without septic shock Qualified Code(s): A41.9 - Sepsis, unspecified organism; R65.20 - Severe sepsis without septic shock; N17.9 - Acute kidney failure, unspecified Code(s): A41.9 - Sepsis, unspecified organism Status: Acute Assessment and Plan: The patient's hypotension could be strictly cardiac in nature versus hypovolemia but cannot rule out source of infection or sepsis. * Patient received cefepime Flagyl and vancomycin in the ER to treat for possible infected foot wound. Will switch antibiotic to Ceftriaxone 2 gm IVPB daily, change Flagyl to oral, and stop Vancomycin. * Patient was noted to have mild elevation in white count and does have some chronic wounds but they do not visually a appear to be acutely infected but given her condition this cannot completely be ruled out especially in the setting of acute increasing ESR and CRP. * She is not febrile. Blood cultures no growth to date. Procalcitonin 2.3. * BP remains stable * WBC improved from 12.3>10.7>10.2>9.7 (2) Metabolic encephalopathy: Code(s): G93.41 - Metabolic encephalopathy Status: Acute Assessment and Plan: * Likely due to uremia/azotemia with markedly elevated BUN above baseline. However cannot rule out some component of encephalopathy due to acute infection. resolved (3) Acute on chronic renal failure: Qualifiers: Acute renal failure type: unspecified Chronic kidney disease stage: stage 4 (severe) Qualified Code(s): N17.9 - Acute kidney failure, unspecified; N18.4 - Chronic kidney disease, stage 4 (severe) Code(s): N17.9 - Acute kidney failure, unspecified; N18.9 - Chronic kidney disease, unspecified Status: Acute Assessment and Plan: Most likely multifactorial. It is certainly component of hypovolemia decreased fluid intake given the patient's clinical appearance. Patient is also on diuretic therapy and has some prerenal component due to acute on chronic hypotension. * Patient's BUN has increased markedly in this is less likely causing up component of her decreased oral intake and or confusion due to uremia. Will hold nephrotoxic medications including Entresto, Bumex and metolazone. * BUN/CR 115/1.6 on am labs * Consult Nephrology for further recommendations. Baseline Cr runs approximately 1.7-2.2 BUN 105, Cr 1.6 patient also appears to be fluid overloaded with pulm edema per chest imaging Nephrology following and noted patient does not need dialysis at this time (4) Hypokalemia: Code(s): E87.6 - Hypokalemia Status: Acute Assessment and Plan: resolved monitor and replace accordingly (5) Hypotension: Qualifiers: Hypotension type: hypotension due to hypovolemia Qualified Code(s): E86.1 - Hypovolemia Code(s): I95.9 - Hypotension, unspecified Status: Acute Assessment and Plan: The patient has some component of chronic hypotension with cardiology notes mentioning patient had prior asymptomatic hypotension with systolic blood pressures in the 90s. * BP remains stable at 127/32 * Midodrine 10 mg PO TID * Encourage PO intake. Can continue Midodrine for now. continue holding Entresto, Bumex, Metolazone for now. Cardiology input appreciated (6) Cardiomyopathy: Qualifiers: Cardiomyopathy type: ischemic Qualified Code(s): I25.5 - Ischemic cardiomyopathy Code(s): I42.9 - Cardiomyopathy, unspecified Status: Acute Assessment and Plan: * Patient's chest x-ray appears similar to prior. * After receiving 30 mL/kilos fluid bolus patient's oxygen requirement did go up from her baseline 1 L up to 3 L. the patient's BNP is markedly elevated compared to prior values. Wondering if recent initiation of midodrine may have contributed to to an acute decompensation. * The patient had recent echocardiogram earlier this month demonstrated EF that improved to 55%. With some right-sided ventricular enlargement and expected valvular abnormalities given the patient's history. * Hold Entresto,Bumex, or metolazone without discussion with both Nephrology and Cardiology. cardiology following (7) Decubitus ulcer of sacral area: Qualifiers: Pressure injury stage: unspecified pressure injury stage Qualified Code(s): L89.159 - Pressure ulcer of sacral region, unspecified stage Code(s): L89.159 - Pressure ulcer of sacral region, unspecified stage Status: Acute Assessment and Plan: * Wound Care consult. * Antifungal barrier cream. * Turn q 2. * Surgery following in case intervention needs done. * Chad 1 pack BID, encourage PO intake. (8) Ulcer of left heel: Code(s): L97.429 - Non-pressure chronic ulcer of left heel and midfoot with unspecified severity Status: Acute Assessment and Plan: * Santyl to wound bed to promote healing. * Waffle boots. * Surgery following in case intervention needs done. * Chad 1 pack BID, encourage PO intake. (9) Peripheral artery disease: Code(s): I73.9 - Peripheral vascular disease, unspecified Status: Acute Assessment and Plan: ABIs during her last hospitalization showed moderately decreased ABIs consistent with arterial occlusive disease. This can contribute to poor healing with her lower extremity ulcers. cardiology evaluated and noted most likely outpatient intervention (10) Elevated troponin: Code(s): R79.89 - Other specified abnormal findings of blood chemistry Status: Acute Assessment and Plan: * Trop 0.617> 0.633>0.185 likely demand from sepsis trending down cardiology on board Plan Iron deficiency anemia hb 7.5, isat 9 Venofer 500/1000 FOBT pending Gi consulted to rule out GI bleed monitor h and h Possible Pneumonia CT Chest showed possible Atypical pneumonia continue Rocephin and Start Doxycycline monitor FTT/protein energy malnutrition less than 25% of meal being consumed by patient start Dronabinol continue protein supplements dietitian consulted DVT prophylaxis on Sq heparin Discussed care plan with and patient at bedside Subjective Date/time seen: 08/29/24 15:47 Interval history: Patient comfortable at bedside and noted poor appetite Nurse noted she has been eating about 25% of her meal, and dietitian on board Review of Systems Review of Systems: All systems reviewed & are unremarkable except as noted in HPI and below ROS unobtainable: Yes unobtainable due to mental status Exam Narrative: AF HR 68 RR 20 SPO2 100 2L NC BP 127/32 General: female in no acute respiratory distress who is nontoxic appearing, lying semi recumbent in bed. HEENT: Normocephalic. Atraumatic. Extraocular movement intact. Sclera clear and anicteric. No facial asymmetry. Chest: Lungs are coarse to auscultation bilaterally. No wheezes or crackles. Remains on 2L NC. CV: Heart was regular rate and rhythm. S1-S2. No murmurs, gallops, or rubs. Abd: Abdomen was soft. Nontender. Nondistended. Positive bowel sounds. No organomegaly or masses. Ext: No clubbing, cyanosis, or edema. 2+ DP pulses bilaterally. Neuro: Patient is alert and oriented x4. Cranial nerves 2-12 are intact. Speech is clear. Const: General: comfortable and no acute distress Other: Acutely ill-appearing, obese, appears older than stated age HENMT: Other: Head is normocephalic atraumatic, lips are dry with peeling skin the, mucous membranes are dry, fair dentition but exam limited as the patient only minimally opens her mouth Eyes: Other: Pupils are equal and reactive, marked conjunctival pallor, no scleral icterus Neck: Other: No obvious JVD, large neck circumference, supple Resp: Effort & Inspection: normal respiratory effort Auscultation: clear to auscultation bilaterally Other: Mild tachypnea, accessory muscle use, decreased breath sounds bilaterally most notably at the bases Cardio: Rate: regular rate Rhythm: regular rhythm Other: paced 71 GI: Auscultation: normal bowel sounds Other: Obese, soft, nontender : Other: Melchor catheter in place with 250 mL of dark yellow urine Urinary Catheter: Urinary Catheter: patent and draining (yellow) Skin: General skin exam: wounds noted Wounds: wounds noted Other: surgical evaluation noted today Right lateral lower leg ulcer appears superficial but with 100% of the wound bed dark red/purple and black with mild localized pink discoloration of the skin around the border of the wound. No cr epitus, no purulent drainage, and no odor. Unchanged from yesterday. Right heel with a purple deep tissue injury measuring 5 x 6 cm, nonblanchable, all of the overlying skin is intact. Stage IV left heel ulcer measuring 4.5 x 6 x 1 cm with more yellow and mendes slough in about 80% of the wound bed today. No purulent drainage, no crepitus, and no foul odor . 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 and 3/5 strength on the right, patient was unable to pull her feet away from noxious stimuli Extrem: General: pedal edema bilaterally 2+ Other: Patient has chronic wounds 1 of the posterior right lower calf with a slightly larger base than previous but base appears clean no evidence of surrounding erythema (please see nursing documentation for imaging), and black eschar on the left heel dry, no drainage, no surrounding erythema, 1+ pretibial edema bilateral Psych: Mental Status: mental status grossly normal Affect: normal affect Other: Affect flat Objective Data Vital Signs Vital Signs: Vital Signs - 24 hr 08/28/24 16:00 08/28/24 21:47 08/28/24 22:30 Temperature 98.2 F Pulse Rate 72 107 H 138 H Respiratory Rate 16 24 H Blood Pressure 115/66 Pulse Oximetry 92 99 Oxygen Delivery Oxygen Flow Rate 08/28/24 20:00 08/28/24 23:06 08/28/24 23:20 Temperature Pulse Rate 138 H 134 H Respiratory Rate 24 H Blood Pressure 98/71 L 112/66 Pulse Oximetry 99 99 Oxygen Delivery Nasal Cannula Oxygen Flow Rate 2 08/28/24 23:51 08/28/24 20:00 08/28/24 22:30 Temperature Pulse Rate 143 H 106 H 140 H Respiratory Rate 20 Blood Pressure 110/95 H 115/66 Pulse Oximetry 96 Oxygen Delivery Nasal Cannula Oxygen Flow Rate 2 08/29/24 01:00 08/29/24 00:36 08/29/24 00:38 Temperature 99.0 F 99 F Pulse Rate 135 H 135 H Respiratory Rate 23 H Blood Pressure 92/52 L 92/52 L Pulse Oximetry 100 Oxygen Delivery Oxygen Flow Rate 08/29/24 00:00 08/29/24 01:54 08/29/24 02:00 Temperature Pulse Rate 130 H 112 H 117 H Respiratory Rate Blood Pressure 111/92 H Pulse Oximetry Oxygen Delivery Oxygen Flow Rate 08/29/24 04:00 08/29/24 04:00 08/29/24 04:27 Temperature 98.3 F Pulse Rate 126 H 111 H 120 H Respiratory Rate 22 H Blood Pressure 104/59 L 99/64 L Pulse Oximetry 100 Oxygen Delivery Oxygen Flow Rate 08/29/24 06:00 08/29/24 06:00 08/29/24 06:00 Temperature Pulse Rate 104 H 119 H Respiratory Rate Blood Pressure 104/55 L 104/55 L Pulse Oximetry Oxygen Delivery Oxygen Flow Rate 08/29/24 07:42 08/29/24 08:24 08/29/24 10:00 Temperature 97.7 F 97.9 F Pulse Rate 123 H 95 71 Respiratory Rate 20 20 18 Blood Pressure 104/63 122/55 L Pulse Oximetry 100 100 Oxygen Delivery Oxygen Flow Rate 08/29/24 10:08 08/29/24 10:08 08/29/24 08:00 Temperature Pulse Rate 105 H 105 H 105 H Respiratory Rate Blood Pressure Pulse Oximetry Oxygen Delivery Oxygen Flow Rate 08/29/24 10:00 08/29/24 11:20 08/29/24 08:00 Temperature Pulse Rate 73 77 105 H Respiratory Rate Blood Pressure 122/55 L 104/63 Pulse Oximetry Oxygen Delivery Oxygen Flow Rate 08/29/24 10:00 08/29/24 08:00 08/29/24 11:26 Temperature 97.7 F Pulse Rate 73 105 H 76 Respiratory Rate 28 H Blood Pressure 122/55 L 117/56 L Pulse Oximetry 100 92 Oxygen Delivery Nasal Cannula Oxygen Flow Rate 2 08/29/24 12:00 08/29/24 12:00 08/29/24 14:00 Temperature 98.0 F Pulse Rate 74 74 73 Respiratory Rate 20 Blood Pressure 101/45 L Pulse Oximetry 92 100 Oxygen Delivery Nasal Cannula Oxygen Flow Rate 2 08/29/24 14:00 08/29/24 15:24 Temperature 98.0 F Pulse Rate 74 72 Respiratory Rate 24 H Blood Pressure 104/48 L Pulse Oximetry 100 Oxygen Delivery Oxygen Flow Rate Intake/Output Intake/Output: Intake & Output 08/26/24 08/27/24 08/28/24 08/29/24 23:59 23:59 23:59 23:59 Intake Total 1195 820 522 412.1 Output Total 600 1200 2450 300 Balance 815 -018 -2802 112.1 Meds/Results Medications: Active Medications Generic Name Dose Route Start Last Admin Trade Name Freq PRN Reason Stop Dose Admin Acetaminophen 650 mg 08/27/24 21:31 08/28/24 23:47 Acetaminophen 325 Mg Tablet PO 650 mg Q6H PRN Administration Mild Pain (1-3) or Fever Allopurinol 50 mg 08/26/24 09:00 08/28/24 08:37 Allopurinol 50 Mg Tablet PO 50 mg Q48H MADELINE Administration Aspirin 325 mg 08/26/24 09:00 08/29/24 08:47 Aspirin 325 Mg Tablet PO 325 mg DAILY MADELINE Administration Collagenase 1 applic 08/26/24 09:00 08/29/24 08:52 Collagenase Oint 30 Gm Tube TOPICAL 1 applic QAM MADELINE Administration Dronabinol 2.5 mg 08/29/24 17:00 Dronabinol (*Crx) 2.5 Mg Capsule PO BID [facility] Epoetin Crispin-epbx 10,000 units 08/29/24 09:00 08/29/24 08:52 Epoetin Crispin-Epbx 10,000 Units/Ml Vial SUB-Q 10,000 units TUTHSA@09 MADELINE Administration Fluconazole 150 mg 08/29/24 09:00 08/29/24 08:47 Fluconazole 150 Mg Tablet PO 09/01/24 09:01 150 mg Q72H MADELINE Administration Guaifenesin 600 mg 08/27/24 10:00 08/29/24 08:47 Guaifenesin 12 Hr 600 Mg Tabcr PO 09/03/24 09:59 600 mg Q12HR MADELINE Administration Heparin Sodium (Porcine) 5,000 units 08/26/24 09:00 08/29/24 08:47 Heparin Sodium 5,000 Units/Ml Vial SUB-Q 5,000 units Q12HR MADELINE Administration Ceftriaxone Sodium 2 gm in 100 mls @ 200 mls/hr 08/26/24 14:00 08/29/24 08:46 Rocephin 2 Gm/Ns 100 Ml IVPB 200 mls/hr DAILY MADELINE Administration Dextrose 500 mls @ 50 mls/hr 08/29/24 09:00 08/29/24 10:12 Dextrose 5% In Water IV CONT 08/29/24 18:59 50 mls/hr .Q10H MADELINE Administration Levothyroxine Sodium 75 mcg 08/26/24 06:30 08/29/24 06:00 Levothyroxine Sodium 75 Mcg Tablet PO 75 mcg DAILY@0630 MADELINE Administration Metronidazole 500 mg 08/26/24 22:00 08/29/24 13:04 Metronidazole 500 Mg Tablet PO 500 mg Q8HR MADELINE Administration Midodrine 10 mg 08/26/24 09:00 08/29/24 13:04 Midodrine Hcl 10 Mg Tablet PO 10 mg TID MADELINE Administration Umeclidinium [place] 1 puff 08/26/24 08:00 08/29/24 08:23 Umeclidinium [place] 62.5 Mcg Ellipt[place] INHALATION 1 puff DAILYRT MADELINE Administration Radiology Results: ITS Impressions Foot X-Ray 08/25/24 18:30 IMPRESSION: Very prominent soft tissue ulcer at the posterior heel, with suggestion of calcaneal exposure Soft tissue swelling Prominent osteopenia; this may obscure fracture or bone destruction. If there is concern for osteomyelitis, consider three-phase radionuclide bone scan. Tibia/Fibula X-Ray 08/25/24 18:35 IMPRESSION: Osteopenia Soft tissue swelling Arterial calcifications Head CT 08/25/24 18:43 IMPRESSION: Cerebral atherosclerosis and chronic small vessel ischemic changes of the cerebral white matter Small chronic right frontal probable cerebrovascular accident No acute intracranial finding or hemorrhage Chest CT 08/29/24 11:08 IMPRESSION: 1. Groundglass opacities in right middle lobe and anterior segment right upper lobe, consistent with mild pulmonary edema versus atypical pneumonia. 2. Small pleural effusions. Labs Labs: Laboratory Results - last 24 hr 08/27/24 08/28/24 08/28/24 06:45 01:06 22:29 WBC RBC Hgb Hct MCV MCH MCHC RDW Plt Count MPV Immature Gran % (Auto) Neut % (Auto) Lymph % (Auto) [place] % (Auto) Eos % (Auto) Baso % (Auto) Lymph # (Auto) [place] # (Auto) Eos # (Auto) Baso # (Auto) Abs Immat Gran (auto) Absolute Neuts (auto) Absolute Nucleated RBC Nucleated RBC % Sodium Potassium Chloride Carbon Dioxide Anion Gap BUN Creatinine Estim Creat Clear Calc Estimated GFR Glucose POC Capillary Glucose 148 H Lactic Acid Calcium Phosphorus Magnesium Iron TIBC % Saturation Ferritin Total Bilirubin AST ALT Alkaline Phosphatase Troponin I Total Protein Albumin Vitamin B12 Folate Urine Color Yellow Urine Appearance Cloudy H Urine pH 5.0 Ur Specific [place] 1.014 Urine Protein Trace Urine Glucose (UA) Negative Urine Ketones Negative Ur Blood (Man) 1+ H Urine Nitrate Negative Urine Bilirubin Negative Urine Urobilinogen 0.2 Add Ur Microanalysis Reviewed Leukocyte Esterase Rfl 1+ H Urine RBC 21-50 H Urine WBC 11-20 H Ur Squamous Epith Cells Occasional Urine Bacteria None seen Urine Casts >20 Hep B Core Total Ab Non-reactive Influenza A (RT-PCR) Influenza B (RT-PCR) RSV (RT-PCR) SARS-CoV-2 RNA (RT-PCR) 08/28/24 08/28/24 08/29/24 22:57 23:03 02:31 WBC 11.9 H RBC 3.13 L Hgb 7.8 L Hct 25.9 L MCV 82.7 MCH 24.9 L MCHC 30.1 L RDW 19.3 H Plt Count 270 MPV 11.8 H Immature Gran % (Auto) 1.3 H Neut % (Auto) 90.4 H Lymph % (Auto) 4.1 L [place] % (Auto) 4.0 Eos % (Auto) 0.0 Baso % (Auto) 0.2 Lymph # (Auto) 0.49 L [place] # (Auto) 0.5 Eos # (Auto) 0.0 Baso # (Auto) 0.0 Abs Immat Gran (auto) 0.16 H Absolute Neuts (auto) 10.7 H Absolute Nucleated RBC 0.000 Nucleated RBC % 0.0 Sodium 151 H Potassium 3.8 Chloride 108 H Carbon Dioxide 36 H Anion Gap 7 BUN 101 H D Creatinine 1.60 H Estim Creat Clear Calc 28 Estimated GFR 32 L Glucose 143 H POC Capillary Glucose Lactic Acid 1.2 Calcium 9.2 Phosphorus 3.1 Magnesium 1.7 Iron TIBC % Saturation Ferritin Total Bilirubin AST ALT Alkaline Phosphatase Troponin I 0.179 H* 0.369 H* D Total Protein Albumin Vitamin B12 Folate Urine Color Urine Appearance Urine pH Ur Specific [place] Urine Protein Urine Glucose (UA) Urine Ketones Ur Blood (Man) Urine Nitrate Urine Bilirubin Urine Urobilinogen Add Ur Microanalysis Leukocyte Esterase Rfl Urine RBC Urine WBC Ur Squamous Epith Cells Urine Bacteria Urine Casts Hep B Core Total Ab Influenza A (RT-PCR) Negative Influenza B (RT-PCR) Negative RSV (RT-PCR) Negative SARS-CoV-2 RNA (RT-PCR) Negative 08/29/24 06:22 WBC 10.7 H RBC 3.07 L Hgb 7.5 L Hct 25.8 L MCV 84.0 MCH 24.4 L MCHC 29.1 L RDW 19.5 H Plt Count 247 MPV 12.2 H Immature Gran % (Auto) 0.9 H Neut % (Auto) 89.3 H Lymph % (Auto) 5.3 L [place] % (Auto) 4.4 Eos % (Auto) 0.0 Baso % (Auto) 0.1 L Lymph # (Auto) 0.57 L [place] # (Auto) 0.5 Eos # (Auto) 0.0 Baso # (Auto) 0.0 Abs Immat Gran (auto) 0.10 H Absolute Neuts (auto) 9.5 H Absolute Nucleated RBC 0.000 Nucleated RBC % 0.0 Sodium 153 H Potassium 3.8 Chloride 108 H Carbon Dioxide 38 H Anion Gap 7 BUN 105 H Creatinine 1.60 H Estim Creat Clear Calc 28 Estimated GFR 32 L Glucose 138 H POC Capillary Glucose Lactic Acid Calcium 9.2 Phosphorus Magnesium Iron 16 L TIBC 175 L % Saturation 9 L Ferritin 339.00 H Total Bilirubin 0.5 AST 18 ALT 14 Alkaline Phosphatase 77 Troponin I 0.490 H* D Total Protein 7.0 Albumin 3.0 L Vitamin B12 833.0 Folate 5.4 Urine Color Urine Appearance Urine pH Ur Specific [place] Urine Protein Urine Glucose (UA) Urine Ketones Ur Blood (Man) Urine Nitrate Urine Bilirubin Urine Urobilinogen Add Ur Microanalysis Leukocyte Esterase Rfl Urine RBC Urine WBC Ur Squamous Epith Cells Urine Bacteria Urine Casts Hep B Core Total Ab Influenza A (RT-PCR) Influenza B (RT-PCR) RSV (RT-PCR) SARS-CoV-2 RNA (RT-PCR) Quality VTE Prophylaxis VTE prophylaxis: pharmacologic ordered (Heparin 5000 units subQ q.12 hours)
[2024-08-29 17:59] LABS: Iron 20 ug/dL (37-170)
[2024-08-29] MEDS: DOXYCYCLINE 100 MG/NS 100 ML 100 MG/100 ML BAG IVPB (18:03)
[2024-08-29] MEDS: droNABinol (*CRX) 2.5 MG CAPSULE PO (18:03)
[2024-08-29] MEDS: IRON SUCROSE COMPLEX 400 MG, IRON SUCROSE COMPLEX 100 MG in SODIUM CHLORIDE 0.9% IV 250 ML 78.57 MG IVPB (18:04)
[2024-08-29 18:09] LABS: Percent Iron Saturation 12 % (20-50)
--- NOTE | 2024-08-29 19:04 | WPDGICN ---
Assessment and Plan Assessment and plan (1) Anemia: Code(s): D64.9 - Anemia, unspecified Status: Acute Plan This patient presents with multiple significant medical comorbidities, including congestive heart failure, kidney failure, and a recent history of sepsis. Her low iron saturation of 9% indicates a need for further investigation, potentially through colonoscopy and endoscopy. However, given her current medical instability, it is prudent to postpone these procedures until her overall condition improves. Colonoscopy preparation can exacerbate volume depletion and renal function, and sometimes (especially with Poliethyleneglicol which we routinely use) and may also lead to CHF exacerbation and /or electrolyte imbalances. We will continue to monitor the patient's progress and consult with nephrology and cardiology to determine the optimal timing for these diagnostic procedures, particularly considering the potential risks associated with colonoscopy preparation. GI Consult Note Consult date/time: 08/29/24 19:04 Reason for consult: iron deficiency anemia HPI: Monica Rangel is a 74 year old female admitted on 08/07/2024 with past medical history significant for chronic left heel ulcer, hypothyroidism, cardiomyopathy, congestive heart failure, chronic kidney disease. The patient also has CAD s/p CABG (BARR-LAD, SVG-RI), paroxysmal atrial fibrillation, heart failure with reduced LVEF s/p biventricular ICD, mitral regurgitation s/p bioprosthetic mitral valve replacement , tricuspid valve repair, chronic kidney disease stage 4 who was admitted for sepsis. she has been hemodynamically unstable, and is currently being followed by Nephrology, suggesting several measures to improved renal function before deciding on hemodialysis. Reason for consultation is the finding of iron deficiency anemia. [facility] Past Medical History Medical History Acute non-ST elevation myocardial infarction (NSTEMI) Anemia Aortic stenosis Atrial fibrillation with rapid ventricular response CAD (coronary artery disease) Cardiomyopathy Ejection fraction as low as 10 to 15%, EF was 36% after ICD insertion, with most recent EF July 2024 50-55% with hypokinesis basal inferior and inferior septum, right ventricular chamber mildly enlarged right ventricular systolic function reduced, mild aortic valve stenosis with peak velocity 222, me gradient 9 valve area 1.6 no stenosis of bioprosthetic mitral valve mild periventricular mitral valve regurgitation trace tricuspid valve regurgitation mild pulmonary hypertension RVSP of 48 Chronic kidney disease Chronic obstructive pulmonary disease Congestive heart failure Contraindication to anticoagulation therapy Secondary to GI bleed. Status post left atrial appendage ligation. Coronary artery disease Status post 2 vessel bypass. Depression GI bleed Gout History of placement of internal cardiac defibrillator Hyperlipidemia Kidney stones LBBB (left bundle branch block) Nephrolithiasis Nocturnal hypoxia Paroxysmal atrial fibrillation Psoriasis Subcapital fracture of right hip Tobacco dependence Surgical History Surgical History H/O two vessel coronary artery bypass graft (04/2021) History of appendectomy History of coronary artery stent placement History of hip surgery (08/2022) ORIF for fracture History of mitral valve replacement with bioprosthetic valve History of tricuspid valve repair History of tubal ligation History of two vessel coronary artery bypass graft Status post implantation of automatic cardioverter/defibrillator (AICD) Status post ligation of left atrial appendage Family History Family History Father Cancer Mother Acute myocardial infarction Congestive heart failure Son Diabetes mellitus Sibling Chronic obstructive pulmonary disease Social History Social History Social History: The patient lives with her and 1 of their sons in [place]. She has 2 other sons that live nearby. She smoked up to 3 packs of cigarettes a day at 1 time but she is down to about half a pack a day. She has smoked for 50 years. She denies alcohol and illicit substance use. Prior to COVID-19 the patient was working for the [employer]. Code status: DNR/DNI (patient voiced desire to change code status 02/2024) Surrogate decision maker: Adiel Rangel () Smoking packs per day: 1 Smoking cigarettes per day: 20.0 Years smoked: 50 Smoking pack-years: 50.00 Smoking status: Current every day smoker Tobacco type: cigarettes Second hand tobacco smoke exposure: Yes Alcohol intake: never Substance use: never Do You Feel Safe in your Home?: Yes Lack of Transportation: No Lack of Food: Never True Current Housing: I Have Housing Concerned About Future Housing: No Difficulty Paying Gas/Electric Bills: No Difficulty Paying for Meds: No Currently Unemployed: No Education: High School Diploma/GED Difficulty w/ Childcare or Family Care: No Living arrangements: with family Gender identity (if verbalized by the patient): Female Spiritual care concerns: No Meds Home Medications and Allergies Home Medications Medication Instructions Recorded Confirmed Type aspirin 325 mg tablet 325 mg PO DAILY 07/09/21 08/25/24 History amiodarone 200 mg tablet (Pacerone) 200 mg PO DAILY 09/28/21 08/25/24 History albuterol sulfate 90 mcg/actuation 2 inh inhalation Q4H PRN shortness 02/08/24 08/25/24 Rx aerosol inhaler of breath or wheezing #8.5 grams levothyroxine 75 mcg tablet 75 mcg PO DAILY 03/20/24 08/25/24 History bumetanide 1 mg tablet 2 mg PO DAILY #60 tabs 03/29/24 08/25/24 Rx sacubitril 49 mg-valsartan 51 mg 0.5 tablet PO Q12HR #30 tabs 04/10/24 08/25/24 Rx tablet (Entresto) metolazone 2.5 mg tablet 2.5 mg PO DAILY 04/24/24 08/25/24 History allopurinol 100 mg tablet 50 mg PO Q48H #30 tabs 05/29/24 08/25/24 Rx gabapentin 100 mg capsule 200 mg PO BID #120 caps 07/17/24 08/25/24 Rx amoxicillin 500 mg-potassium 1 tablet PO Q12HR #20 tabs 08/15/24 08/25/24 Rx clavulanate 125 mg tablet (Augmentin) doxycycline hyclate 100 mg tablet 100 mg PO Q12HR #20 tabs 08/15/24 08/25/24 Rx ferrous sulfate 325 mg (65 mg 325 mg PO BID #60 tabs 08/15/24 08/25/24 Rx iron) tablet midodrine 10 mg tablet 10 mg PO TID #90 tabs 08/15/24 08/25/24 Rx umeclidinium 62.5 mcg/actuation 1 inh inhalation DAILYRT #30 ea 08/15/24 08/25/24 Rx blister powder for inhalation (Incruse Ellipta) Allergies Allergy/AdvReac Type Severity Reaction Status Date / Time No Known Allergies Allergy Verified 08/25/24 17:12 Vital Signs Vital Signs - 24 hr 08/28/24 21:47 08/28/24 22:30 08/28/24 20:00 Temperature 98.2 F Pulse Rate 107 H 138 H 138 H Respiratory Rate 16 24 H 24 H Blood Pressure 115/66 Pulse Oximetry 92 99 99 Oxygen Delivery Nasal Cannula Oxygen Flow Rate 2 08/28/24 23:06 08/28/24 23:20 08/28/24 23:51 Temperature Pulse Rate 134 H 143 H Respiratory Rate Blood Pressure 98/71 L 112/66 110/95 H Pulse Oximetry 99 Oxygen Delivery Oxygen Flow Rate 08/28/24 20:00 08/28/24 22:30 08/29/24 01:00 Temperature Pulse Rate 106 H 140 H 135 H Respiratory Rate 20 Blood Pressure 115/66 92/52 L Pulse Oximetry 96 Oxygen Delivery Nasal Cannula Oxygen Flow Rate 2 08/29/24 00:36 08/29/24 00:38 08/29/24 00:00 Temperature 99.0 F 99 F Pulse Rate 135 H 130 H Respiratory Rate 23 H Blood Pressure 92/52 L Pulse Oximetry 100 Oxygen Delivery Oxygen Flow Rate 08/29/24 01:54 08/29/24 02:00 08/29/24 04:00 Temperature Pulse Rate 112 H 117 H 126 H Respiratory Rate Blood Pressure 111/92 H Pulse Oximetry Oxygen Delivery Oxygen Flow Rate 08/29/24 04:00 08/29/24 04:27 08/29/24 06:00 Temperature 98.3 F Pulse Rate 111 H 120 H 104 H Respiratory Rate 22 H Blood Pressure 104/59 L 99/64 L Pulse Oximetry 100 Oxygen Delivery Oxygen Flow Rate 08/29/24 06:00 08/29/24 06:00 08/29/24 07:42 Temperature 97.7 F Pulse Rate 119 H 123 H Respiratory Rate 20 Blood Pressure 104/55 L 104/55 L 104/63 Pulse Oximetry 100 Oxygen Delivery Oxygen Flow Rate 08/29/24 08:24 08/29/24 10:00 08/29/24 10:08 Temperature 97.9 F Pulse Rate 95 71 105 H Respiratory Rate 20 18 Blood Pressure 122/55 L Pulse Oximetry 100 Oxygen Delivery Oxygen Flow Rate 08/29/24 10:08 08/29/24 08:00 08/29/24 10:00 Temperature Pulse Rate 105 H 105 H 73 Respiratory Rate Blood Pressure Pulse Oximetry Oxygen Delivery Oxygen Flow Rate 08/29/24 11:20 08/29/24 08:00 08/29/24 10:00 Temperature Pulse Rate 77 105 H 73 Respiratory Rate Blood Pressure 122/55 L 104/63 122/55 L Pulse Oximetry Oxygen Delivery Oxygen Flow Rate 08/29/24 08:00 08/29/24 11:26 08/29/24 12:00 Temperature 97.7 F Pulse Rate 105 H 76 74 Respiratory Rate 28 H Blood Pressure 117/56 L Pulse Oximetry 100 92 Oxygen Delivery Nasal Cannula Oxygen Flow Rate 2 08/29/24 12:00 08/29/24 14:00 08/29/24 14:00 Temperature 98.0 F Pulse Rate 74 73 74 Respiratory Rate 20 Blood Pressure 101/45 L Pulse Oximetry 92 100 Oxygen Delivery Nasal Cannula Oxygen Flow Rate 2 08/29/24 15:24 08/29/24 18:00 08/29/24 16:00 Temperature 98.0 F 97.8 F Pulse Rate 72 72 72 Respiratory Rate 24 H 24 H Blood Pressure 104/48 L 108/42 L Pulse Oximetry 100 100 Oxygen Delivery Oxygen Flow Rate 08/29/24 18:00 Temperature Pulse Rate 79 Respiratory Rate Blood Pressure Pulse Oximetry Oxygen Delivery Oxygen Flow Rate Exam Resp: Effort & Inspection: normal respiratory effort and able to speak in complete sentences Auscultation: clear to auscultation bilaterally GI: Inspection: normal to inspection GI Palp: No No hepatosplenomegaly present Auscultation: normal bowel sounds Rectal Exam: deferred Skin: General skin exam: normal color Psych: Appearance: grossly normal Mental Status: mental status grossly normal Results Labs 08/29/24 06:22 08/29/24 06:22 Labs: Short CBC 08/28/24 08/29/24 Range/Units 22:57 06:22 WBC 11.9 H 10.7 H (4.5-10.0) K/mm3 Hgb 7.8 L 7.5 L (12.0-15.0) g/dL Hct 25.9 L 25.8 L (37.0-47.0) % Plt Count 270 247 (150-375) k/mm3 BMP 08/28/24 08/29/24 22:57 06:22 Sodium 151 H 153 H Potassium 3.8 3.8 Chloride 108 H 108 H Carbon Dioxide 36 H 38 H BUN 101 H D 105 H Creatinine 1.60 H 1.60 H Glucose 143 H 138 H Calcium 9.2 9.2 Cardiac Enzymes 08/28/24 08/29/2408/29/24 Range/Units 22:57 02:31 06:22 Troponin I 0.179 H* 0.369 H* D 0.490 H* D (0.000-0.034) ng/mL Liver Function 08/29/24 Range/Units 06:22 Total Bilirubin 0.5 (0.2-1.3) mg/dL AST 18 (14-36) U/L ALT 14 (6-35) U/L Alkaline Phosphatase 77 (38-126) U/L Albumin 3.0 L (3.5-5.1) g/dL Urine 08/28/24 Range/Units 01:06 Urine Color Yellow (Yellow) Urine Appearance Cloudy H (Clear) Urine pH 5.0 (5.0-9.0) Ur Specific [place] 1.014 (1.001-1.035) Urine Protein Trace (Negative) mg/dL Urine Glucose (UA) Negative (Negative) mg/dL
[2024-08-30] VITALS (22 sets, daily range): BP systolic 94–124; BP diastolic 46–71; PULSE 68–132; RESP 20–23; TEMP 36.5–37; O2SAT 92–100
[2024-08-30] MEDS: DOXYCYCLINE 100 MG/NS 100 ML 100 MG/100 ML BAG IVPB ×2 (04:31→16:51)
[2024-08-30 05:00] LABS: Basophils Percent Auto 0.1 % (0.2-1.2); Hematocrit 29.1 % (37.0-47.0); Hemoglobin 8.5 g/dL (12.0-15.0); Immature Granulocyte Absolute 0.12 K/mm3 (0.00-0.031); Immature Granulocyte Percent A 1.1 % (0-0.5); Lymphocytes Absolute Auto 0.67 K/mm3 (0.9-3.2); Lymphocytes Percent Auto 6.1 % (18.3-44.2); Mean Corpuscular HGB Conc 29.2 g/dl (32-36); Mean Corpuscular Volume 85.6 fl (80-100); Mean Platelet Volume 12.3 fl (7.4-10.4); Monocytes Absolute Auto 0.5 K/mm3 (0.1-0.6); Monocytes Percent Auto 4.6 % (2.6-8.5); Neutrophils Absolute Auto 9.7 K/mm3 (1.3-6.7); Neutrophils Percent Auto 88.1 % (45.5-73.1); Nucleated Red Blood Cells Perc 0.3 % (0.0-0.2); Platelet Count Result 243 k/mm3 (150-375); Red Cell Distribution Width 19.9 % (11.5-14.5)
[2024-08-30 05:11] LABS: Lactic Acid Reflex 1.7 mmol/L (0.7-2.0)
[2024-08-30 05:12] LABS: Alanine Aminotransferase 14 U/L (6-35); Alkaline Phosphatase 89 U/L (38-126); Aspartate Amino Transferase 17 U/L (14-36); Bilirubin,Total 0.7 mg/dL (0.2-1.3); Blood Urea Nitrogen 95 mg/dL (7-17); Calcium 9.6 mg/dL (8.4-10.2); Carbon Dioxide > 40 mmol/L (22-30); Chloride 107 mmol/L (98-107); Estimated CRCL calculation 26 ml/min; Estimated Glomerular Filt Rate 29; Glucose 123 mg/dL (65-110); Magnesium 1.8 mg/dL (1.6-2.3); Potassium 3.6 mmol/L (3.4-5.0); Sodium 152 mmol/L (137-145)
[2024-08-30] MEDS: LEVOTHYROXINE SODIUM 75 MCG TABLET PO (05:18)
[2024-08-30] MEDS: metroNIDAZOLE 500 MG TABLET PO ×3 (05:18→21:06)
[2024-08-30 05:54] LABS: Hypochromasia 1+; Platelet Estimate Adequate (Adequate)
[2024-08-30 05:55] LABS: Ovalocytes 1+; Schistocytes None Seen; Target Cells 1+
[2024-08-30] MEDS: droNABinol (*CRX) 2.5 MG CAPSULE PO ×2 (08:15→16:51)
[2024-08-30] MEDS: ASPIRIN 325 MG TABLET PO (08:15)
[2024-08-30] MEDS: COLLAGENASE OINT 30 GM TUBE 1 APPLIC TOPICAL (08:15)
[2024-08-30] MEDS: HEPARIN SODIUM 5,000 UNITS/ML VIAL 5000 UNITS SUB-Q ×2 (08:15→21:06)
[2024-08-30] MEDS: guaiFENesin 12 HR 600 MG TABCR PO ×2 (08:15→21:06)
[2024-08-30] MEDS: MIDODRINE HCL 10 MG TABLET PO ×3 (08:15→16:51)
[2024-08-30] MEDS: allopurinoL 50 MG TABLET PO (08:15)
[2024-08-30] MEDS: cefTRIAXone 2 GM/NS 100 ML 2 GM/100 ML BAG IVPB (08:15)
--- NOTE | 2024-08-30 09:55 | P.PNNP_ITS ---
Progress Note: A&P Assessment and Plan (1) Chronic kidney disease, stage 4 (severe): Code(s): N18.4 - Chronic kidney disease, stage 4 (severe) Status: Chronic Assessment and Plan: * baseline creatinine runs ~ 1.7 - 2.2mg/dl * at baseline currently if not better(although was elevated to 2.6mg/dl on admission) * however, her BUN was quite elevated above her baseline...(see #2) * based on outpatient evaluation, thought to be secondary to previous HTN and chronic prerenal azotemia from her CHF/cardiomyopathy with ongoing need for diuretic therapy (2) Azotemia: Code(s): R79.89 - Other specified abnormal findings of blood chemistry Status: Acute Assessment and Plan: * slow improvement * BUN wass quite elevated as noted on admission * suspect multifactorial: * previous steroid use on last hospitalization * use of doxycyline (tetracycline antibiotics have been known to do this) * prerenal factors (volume depletion/diminished oral intake) * ongoing diuretic therapy * inflammation (new infection?) * r/o GI blood loss * agree with holding diuretics/Entresto for now * interestingly, BUN did improve with IVF boluses on admission * suspect a contributing component to confusion * if this fails to improve with conservative therapy, dialysis is a consideration... * however, I worry that dialysis may push her to ESRD status * consider trial of further IVFs if respiratory status tolerates...but her CXR is concerning for fluid retention already * is this a situation where she is intravascularly dry (due to diminished oral intake) despite outward signs of volume overload? * her rising/elevated sodium would support this * follow trend of repeat labs (3) Hypernatremia: Code(s): E87.0 - Hyperosmolality and hypernatremia Status: Acute Assessment and Plan: * this would suggest she is not drinking enough water * try to encourage more free water intake * need doboff/NG for supplemental feeds? * started on appetite stimulants * follow trend for now (4) Hypotension: Qualifiers: Hypotension type: hypotension due to hypovolemia Qualified Code(s): E86.1 - Hypovolemia Code(s): I95.9 - Hypotension, unspecified Status: Acute Assessment and Plan: * has a chronic component at baseline * started on midodrine on last hospitalization * midodrine was on hold on re-admission but has been restarted * follow trend of hemodynamics (5) Sepsis: Qualifiers: Acute renal failure type: unspecified Sepsis acute organ dysfunction status: with acute organ dysfunction Sepsis type: sepsis due to unspecified organism Severe sepsis acute organ dysfunction type: acute renal failure Severe sepsis shock status: without septic shock Qualified Code(s): A41.9 - Sepsis, unspecified organism; R65.20 - Severe sepsis without septic shock; N17.9 - Acute kidney failure, unspecified Code(s): A41.9 - Sepsis, unspecified organism Status: Acute Assessment and Plan: * concern noted by low BP, elevated inflammatory markers, and elevated WBC * known LE and sacral wounds present * on empiric antibiotics * follow hemodynamics (6) Metabolic encephalopathy: Code(s): G93.41 - Metabolic encephalopathy Status: Acute Assessment and Plan: * due to uremia/azotemia +/- infection (?) * seems better now (but continues to fluctuate) * CT of head negative for any acute findings * follow mentation (7) Anemia: Code(s): D64.9 - Anemia, unspecified Status: Acute Assessment and Plan: * as noted * anemia studies with iron deficiency * on IGNACIA (Retacrit) * follow trend of H/H (8) Cardiomyopathy: Qualifiers: Cardiomyopathy type: ischemic Qualified Code(s): I25.5 - Ischemic cardiomyopathy Code(s): I42.9 - Cardiomyopathy, unspecified Status: Acute Assessment and Plan: * known history * however. recent echo with improved EF to 55% * follow volume status closely * Cardiology following (9) Ulcer of left heel: Code(s): L97.429 - Non-pressure chronic ulcer of left heel and midfoot with unspecified severity Status: Acute Assessment and Plan: * s/p intervention on last hospitalization * General Surgery following * no intervention needed at this time * local wound care Will continue to follow Subjective Date/time seen: 08/30/24 09:55 Interval history: Follow-up for chronic kidney disease and azotemia/elevated BUN. Slow and steady improvement in BUN and stabilization of renal function /creatinine with holding cardiac medications/diuretics; no apparent distress noted but still appears to have some on/off confusion at this time; oral intake stil remains suboptimal as this time; started on appetite stimulants. Exam Narrative: General: elderly but WD/WN female in NAD Heart: normal S1 and S2; no rub Lungs: coarse breath sounds; particularly at bases Abdomen: soft, nontender, nondistended, positive bowel sounds Extremities: no cyanosis or clubbing; trace - 1+ edema Skin: left foot dressings present Objective Data Vital Signs Vital Signs: Vital Signs Temp Pulse Resp BP Pulse Ox O2 Del Method O2 Flow Rate 08/30/24 09:33 97.8 F 74 22 H 116/54 L 97 08/30/24 08:23 98.1 F 75 20 123/53 L 100 08/30/24 06:00 79 08/30/24 04:00 108 H 23 H 92 Nasal Cannula 2 08/30/24 04:00 108 H 08/30/24 04:17 97.7 F 99 23 H 94/50 L 92 08/30/24 01:54 98 08/30/24 00:00 70 22 H 95 Nasal Cannula 2 08/30/24 00:00 70 08/30/24 01:08 98.6 F 116 H 22 H 109/58 L 99 08/29/24 22:00 78 08/29/24 20:00 74 22 H 95 Nasal Cannula 2 08/29/24 20:00 74 08/29/24 19:37 98.9 F 79 22 H 116/51 L 95 08/29/24 18:00 79 08/29/24 18:00 97.8 F 72 24 H 108/42 L 100 Intake/Output Intake/Output: Intake & Output 08/27/24 08/28/24 08/29/24 08/30/24 23:59 23:59 23:59 23:59 Intake Total 525 652 9005.1 100 Output Total 1200 2450 1050 550 Balance -380 -1928 302.1 -450 Meds/Results Medications: Active Medications Generic Name Dose Route Start Last Admin Trade Name Freq PRN Reason Stop Dose Admin Acetaminophen 650 mg 08/27/24 21:31 08/28/24 23:47 Acetaminophen 325 Mg Tablet PO 650 mg Q6H PRN Administration Mild Pain (1-3) or Fever Allopurinol 50 mg 08/26/24 09:00 08/30/24 08:15 Allopurinol 50 Mg Tablet PO 50 mg Q48H MADELINE Administration Amiodarone HCl 400 mg 08/30/24 15:15 Amiodarone Hcl 200 Mg Tablet PO BID MADELINE Aspirin 325 mg 08/26/24 09:00 08/30/24 08:15 Aspirin 325 Mg Tablet PO 325 mg DAILY MADELINE Administration Collagenase 1 applic 08/26/24 09:00 08/30/24 08:15 Collagenase Oint 30 Gm Tube TOPICAL 1 applic QAM MADELINE Administration Dronabinol 2.5 mg 08/29/24 17:00 08/30/24 08:15 Dronabinol (*Crx) 2.5 Mg Capsule PO 2.5 mg BID MADELINE Administration Epoetin Crispin-epbx 10,000 units 08/29/24 09:00 08/29/24 08:52 Epoetin Crispin-Epbx 10,000 Units/Ml Vial SUB-Q 10,000 units TUTHSA@09 MADELINE Administration Guaifenesin 600 mg 08/27/24 10:00 08/30/24 08:15 Guaifenesin 12 Hr 600 Mg Tabcr PO 09/03/24 09:59 600 mg Q12HR MADELINE Administration Heparin Sodium (Porcine) 5,000 units 08/26/24 09:00 08/30/24 08:15 Heparin Sodium 5,000 Units/Ml Vial SUB-Q 5,000 units Q12HR MADELINE Administration Ceftriaxone Sodium 2 gm in 100 mls @ 200 mls/hr 08/26/24 14:00 08/30/24 08:15 Rocephin 2 Gm/Ns 100 Ml IVPB 200 mls/hr DAILY MADELINE Administration Doxycycline Hyclate 100 mg in 100 mls @ 100 mls/hr 08/29/24 17:00 08/30/24 05:30 Vibramycin 100 Mg/Ns 100 Ml IVPB Infused Q12H MADELINE Infusion Amiodarone HCl/Dextrose 360 mg in 200 mls @ 33.333 mls/hr 08/30/24 14:30 08/30/24 14:41 Nexterone 360 Mg/D5w 200 Ml IV CONT 08/30/24 20:29 1 mg/min .Q6H ONE 33.33 mls/hr Administration 1 MG/MIN Levothyroxine Sodium 75 mcg 08/26/24 06:30 08/30/24 05:18 Levothyroxine Sodium 75 Mcg Tablet PO 75 mcg DAILY@0630 MADELINE Administration Metronidazole 500 mg 08/26/24 22:00 08/30/24 13:07 Metronidazole 500 Mg Tablet PO 500 mg Q8HR MADELINE Administration Midodrine 10 mg 08/26/24 09:00 08/30/24 13:07 Midodrine Hcl 10 Mg Tablet PO 10 mg TID MADELINE Administration Umeclidinium Dickinson 1 puff 08/26/24 08:00 08/30/24 08:09 Umeclidinium Dickinson 62.5 Mcg Ellipta INHALATION Not Given DAILYRT [facility] Radiology Results: ITS Impressions Foot X-Ray 08/25/24 18:30 IMPRESSION: Very prominent soft tissue ulcer at the posterior heel, with suggestion of calcaneal exposure Soft tissue swelling Prominent osteopenia; this may obscure fracture or bone destruction. If there is concern for osteomyelitis, consider three-phase radionuclide bone scan. Tibia/Fibula X-Ray 08/25/24 18:35 IMPRESSION: Osteopenia Soft tissue swelling Arterial calcifications Head CT 08/25/24 18:43 IMPRESSION: Cerebral atherosclerosis and chronic small vessel ischemic changes of the cerebral white matter Small chronic right frontal probable cerebrovascular accident No acute intracranial finding or hemorrhage Chest CT 08/29/24 11:08 IMPRESSION: 1. Groundglass opacities in right middle lobe and anterior segment right upper lobe, consistent with mild pulmonary edema versus atypical pneumonia. 2. Small pleural effusions. Labs Labs: Laboratory Tests 08/30/24 04:39 08/30/24 04:39 Lactic Acid 1.7 Calcium 9.6 Magnesium 1.8 Total Bilirubin 0.7 AST 17 ALT 14 Alkaline Phosphatase 89 Total Protein 7.0 Albumin 3.0 L Microbiology 08/28/24 01:06 Urine Clean Catch Urine Culture - Final
--- NOTE | 2024-08-30 10:27 | PCPTNOTE ---
Patient refused treatment this session. Patient did not give reason why, other then patient reported she is strong enough.
[2024-08-30] MEDS: IRON SUCROSE COMPLEX 400 MG, IRON SUCROSE COMPLEX 100 MG in SODIUM CHLORIDE 0.9% IV 250 ML 78.57 MG IVPB (10:35)
--- NOTE | 2024-08-30 11:06 | PCOTNOTE ---
Attempted to see this A.M. Patient refused to participate. RN notified and aware.
[2024-08-30 11:20] LABS: IFOB Positive Control Positive; Immunochemical Fecal Occult Bl Positive (N)
--- NOTE | 2024-08-30 14:10 | ECG_ITS ---
Test Date: 2024-08-30 14:57:14 Measurements Intervals [place] Rate: 72 P: 91 [place]: 167 QRS: 52 QRSD: 112 T: 118 QT: 348 QTc: 383 Interpretive Statements ATRIAL SENSE- ELECTRONIC VENTRICULAR PACEMAKER BASELINE ARTIFACT- I, II, III, AVR, AVL, AVF, V1-V6 NO FURTHER INTERPRETATION IS POSSIBLE ATYPICAL ECG Compared to ECG 08/29/2024 09:45:21 ELECTRONIC VENTRICULAR PACEMAKER NOW PRESENT Electronically Signed On 08-30-2024 15:42:45 CDT by Isac Dey D.O.
--- NOTE | 2024-08-30 14:27 | PCOTNOTE ---
The patient treatment was not able to be completed. Poor level of alertness unable to complete treatment. Will plan to continue treatment per plan of care.
[2024-08-30] MEDS: AMIODARONE 360 MG/D5W 200 ML 360 MG/200 ML BAG 33.33 MG IV CONT (14:41)
[2024-08-30] MEDS: AMIODARONE 150 MG/D5W 100 ML 150 MG/100 ML BAG 600 MG IV CONT (14:43)
--- NOTE | 2024-08-30 15:14 | P.PNCA_ITS ---
Progress Note: A&P Assessment and Plan (1) Atrial fibrillation with rapid ventricular response: Code(s): I48.91 - Unspecified atrial fibrillation Status: Acute (2) Acute kidney injury superimposed on CKD: Code(s): N17.9 - Acute kidney failure, unspecified; N18.9 - Chronic kidney disease, unspecified Status: Acute (3) Hypernatremia: Code(s): E87.0 - Hyperosmolality and hypernatremia Status: Acute (4) Critical limb ischemia of both lower extremities: Code(s): I70.223 - Atherosclerosis of [place] arteries of extremities with rest pain, bilateral legs Status: Acute (5) CAD (coronary artery disease): Qualifiers: Coronary Disease-Associated Artery/Lesion type: [place] artery [place] vs. transplanted heart: [place] heart Associated angina: without angina Qualified Code(s): I25.10 - Atherosclerotic heart disease of [place] coronary artery without angina pectoris Code(s): I25.10 - Atherosclerotic heart disease of [place] coronary artery without angina pectoris Status: Chronic (6) Cardiomyopathy: Qualifiers: Cardiomyopathy type: ischemic Qualified Code(s): I25.5 - Ischemic cardiomyopathy Code(s): I42.9 - Cardiomyopathy, unspecified Status: Acute (7) History of mitral valve replacement with bioprosthetic valve: Onset Date: 04/2021 Code(s): Z95.3 - Presence of xenogenic heart valve Status: Acute (8) H/O tricuspid valve annuloplasty: Code(s): Z98.890 - Other specified postprocedural states Status: Acute Plan 74 year old female with CAD s/p CABG (BARR-LAD, SVG-RI), paroxysmal atrial fibrillation, heart failure with reduced LVEF s/p biventricular ICD, mitral regurgitation s/p bioprosthetic mitral valve replacement with a 31mm Gilbert bioprosthesis, tricuspid valve repair, chronic kidney disease stage 4 who was admitted for sepsis Hypernatremia, FRANK on CKD: Nephrology consulted and following. Critical limb ischemia -Has lower extremity wounds bilaterally with abnormal Doppler studies -She will eventually require lower extremity angiography when she recovers from her sepsis and her kidney function stabilizes -Outpatient follow up with Dr. Nelson regarding this. Paroxysmal atrial fibrillation with RVR: -Will start Amiodarone 400mg BID. -Not on anticoagulation at home due to issues with GI bleeding in the past and s/p left atrial appendage ligation. Chronic heart failure with reduced LVEF status post biventricular ICD, now recovered LVEF -Continue holding heart failure medications giving her midodrine requirements -She appears euvolemic today CAD s/p CABG (BARR-LAD, SVG-RI) -Continue aspirin Mitral regurgitation s/p bioprosthetic mitral valve replacement with a 31mm Gilbert bioprosthesis -Normal function valve on echocardiogram performed earlier this month Subjective Date/time seen: 08/30/24 15:14 Interval history: 74 year old female with CAD s/p CABG (BARR-LAD, SVG-RI), paroxysmal atrial fibrillation, heart failure with reduced LVEF s/p biventricular ICD, mitral regurgitation s/p bioprosthetic mitral valve replacement with a 31mm Gilbert bioprosthesis, tricuspid valve repair, chronic kidney disease stage 4. Patient follows with Dr. Gupta in the office. Recently admitted to [facility] for septic shock. Patient admitted to [facility] on 08/25 for altered mental status, unable to get out of bed. She was noted to be hypotensive on admission. Had FRANK on CKD. Her CHF meds have been placed on hold given FRANK on CKD and hypotension. She has been started on Midodrine. 08/29 - She had episode atrial fibrillation rapid ventricular rate for which she was started on amiodarone drip. She appears to be in pain today and did not wan t to be bothered; however she denies any shortness of breath or chest pain. She does have lower extremity wounds bilaterally with abnormal Doppler studies 08/30: Has atrial fibrillation with RVR earlier today. She states she feels okay, but appears confused on examination. Review of Systems Review of Systems: All systems reviewed & are unremarkable except as noted in HPI and below (HPI) Exam Const: Other: Chronically ill appearing female HENMT: Mouth: Yes dry mucous membranes Eyes: General: appearance normal, both eyes and all related structures Sclera: sclerae normal Resp: Effort & Inspection: normal respiratory effort Cardio: Rate: regular rate Rhythm: regular rhythm Heart sounds: no m urmurs Skin: General skin exam: normal color Neuro: Other: Appears confused Psych: Mental Status: mental status grossly normal Affect: normal affect Objective Data Vital Signs Vital Signs: Vital Signs - 24 hr 08/29/24 15:24 08/29/24 18:00 08/29/24 16:00 Temperature 36.7 C 36.6 C Pulse Rate 72 72 72 Respiratory Rate 24 H 24 H Blood Pressure 104/48 L 108/42 L Pulse Oximetry 100 100 Oxygen Delivery Oxygen Flow Rate 08/29/24 18:00 08/29/24 19:37 08/29/24 20:00 Temperature 37.2 C Pulse Rate 79 79 74 Respiratory Rate 22 H Blood Pressure 116/51 L Pulse Oximetry 95 Oxygen Delivery Oxygen Flow Rate 08/29/24 20:00 08/29/24 22:00 08/30/24 01:08 Temperature 37.0 C Pulse Rate 74 78 116 H Respiratory Rate 22 H 22 H Blood Pressure 109/58 L Pulse Oximetry 95 99 Oxygen Delivery Nasal Cannula Oxygen Flow Rate 2 08/30/24 00:00 08/30/24 00:00 08/30/24 01:54 Temperature Pulse Rate 70 70 98 Respiratory Rate 22 H Blood Pressure Pulse Oximetry 95 Oxygen Delivery Nasal Cannula Oxygen Flow Rate 2 08/30/24 04:17 08/30/24 04:00 08/30/24 04:00 Temperature 36.5 C Pulse Rate 99 108 H 108 H Respiratory Rate 23 H 23 H Blood Pressure 94/50 L Pulse Oximetry 92 92 Oxygen Delivery Nasal Cannula Oxygen Flow Rate 2 08/30/24 06:00 08/30/24 08:23 08/30/24 08:00 Temperature 36.7 C Pulse Rate 79 75 71 Respiratory Rate 20 Blood Pressure 123/53 L Pulse Oximetry 100 Oxygen Delivery Oxygen Flow Rate 08/30/24 10:00 08/30/24 08:00 08/30/24 12:03 Temperature 36.6 C Pulse Rate 79 74 Respiratory Rate 22 H Blood Pressure 116/54 L Pulse Oximetry 100 97 Oxygen Delivery Nasal Cannula Oxygen Flow Rate 2 08/30/24 12:00 08/30/24 12:00 08/30/24 14:00 Temperature Pulse Rate 73 132 H Respiratory Rate Blood Pressure Pulse Oximetry 98 Oxygen Delivery Nasal Cannula Oxygen Flow Rate 2 08/30/24 14:41 08/30/24 14:43 Temperature Pulse Rate 81 81 Respiratory Rate Blood Pressure 117/56 L 117/56 L Pulse Oximetry Oxygen Delivery Oxygen Flow Rate Intake/Output Intake/Output: Intake & Output 08/27/24 08/28/24 08/29/24 08/30/24 23:59 23:59 23:59 23:59 Intake Total 968 174 4672.1 100 Output Total 1200 2450 1050 550 Balance -380 -1928 302.1 -450 Meds/Results Medications: Active Medications Generic Name Dose Route Start Last Admin Trade Name Freq PRN Reason Stop Dose Admin Acetaminophen 650 mg 08/27/24 21:31 08/28/24 23:47 Acetaminophen 325 Mg Tablet PO 650 mg Q6H PRN Administration Mild Pain (1-3) or Fever Allopurinol 50 mg 08/26/24 09:00 08/30/24 08:15 Allopurinol 50 Mg Tablet PO 50 mg Q48H MADELINE Administration Amiodarone HCl 400 mg 08/30/24 15:15 Amiodarone Hcl 200 Mg Tablet PO BID [facility] Aspirin 325 mg 08/26/24 09:00 08/30/24 08:15 Aspirin 325 Mg Tablet PO 325 mg DAILY MADELINE Administration Collagenase 1 applic 08/26/24 09:00 08/30/24 08:15 Collagenase Oint 30 Gm Tube TOPICAL 1 applic QAM [facility] Administration Dronabinol 2.5 mg 08/29/24 17:00 08/30/24 08:15 Dronabinol (*Crx) 2.5 Mg Capsule PO 2.5 mg BID MADELINE Administration Epoetin Crispin-epbx 10,000 units 08/29/24 09:00 08/29/24 08:52 Epoetin Crispin-Epbx 10,000 Units/Ml Vial SUB-Q 10,000 units TUTHSA@09 MADELINE Administration Guaifenesin 600 mg 08/27/24 10:00 08/30/24 08:15 Guaifenesin 12 Hr 600 Mg Tabcr PO 09/03/24 09:59 600 mg Q12HR MADELINE Administration Heparin Sodium (Porcine) 5,000 units 08/26/24 09:00 08/30/24 08:15 Heparin Sodium 5,000 Units/Ml Vial SUB-Q 5,000 units Q12HR MADELINE Administration Ceftriaxone Sodium 2 gm in 100 mls @ 200 mls/hr 08/26/24 14:00 08/30/24 08:15 Rocephin 2 Gm/Ns 100 Ml IVPB 200 mls/hr DAILY MADELINE Administration Doxycycline Hyclate 100 mg in 100 mls @ 100 mls/hr 08/29/24 17:00 08/30/24 05:30 Vibramycin 100 Mg/Ns 100 Ml IVPB Infused Q12H MADELINE Infusion Amiodarone HCl/Dextrose 360 mg in 200 mls @ 33.333 mls/hr 08/30/24 14:30 08/30/24 14:41 Nexterone 360 Mg/D5w 200 Ml IV CONT 08/30/24 20:29 1 mg/min .Q6H ONE 33.33 mls/hr Administration 1 MG/MIN Levothyroxine Sodium 75 mcg 08/26/24 06:30 08/30/24 05:18 Levothyroxine Sodium 75 Mcg Tablet PO 75 mcg DAILY@0630 [facility] Administration Metronidazole 500 mg 08/26/24 22:00 08/30/24 13:07 Metronidazole 500 Mg Tablet PO 500 mg Q8HR MADELINE Administration Midodrine 10 mg 08/26/24 09:00 08/30/24 13:07 Midodrine Hcl 10 Mg Tablet PO 10 mg TID [facility] Administration Umeclidinium [place] 1 puff 08/26/24 08:00 08/30/24 08:09 Umeclidinium [place] 62.5 Mcg Ellipta INHALATION Not Given DAILYRT [facility] Radiology Results: ITS Impressions Foot X-Ray 08/25/24 18:30 IMPRESSION: Very prominent soft tissue ulcer at the posterior heel, with suggestion of calcaneal exposure Soft tissue swelling Prominent osteopenia; this may obscure fracture or bone destruction. If there is concern for osteomyelitis, consider three-phase radionuclide bone scan. Tibia/Fibula X-Ray 08/25/24 18:35 IMPRESSION: Osteopenia Soft tissue swelling Arterial calcifications Head CT 08/25/24 18:43 IMPRESSION: Cerebral atherosclerosis and chronic small vessel ischemic changes of the cerebral white matter Small chronic right frontal probable cerebrovascular accident No acute intracranial finding or hemorrhage Chest CT 08/29/24 11:08 IMPRESSION: 1. [place]glass opacities in right middle lobe and anterior segment right upper lobe, consistent with mild pulmonary edema versus atypical pneumonia. 2. Small pleural effusions. Labs Labs: Laboratory Results - last 24 hr 08/29/24 08/30/24 08/30/24 16:19 04:39 10:55 WBC 11.0 H RBC 3.40 L Hgb 8.5 L Hct 29.1 L MCV 85.6 MCH 25.0 L MCHC 29.2 L RDW 19.9 H Plt Count 243 MPV 12.3 H Immature Gran % (Auto) 1.1 H Neut % (Auto) 88.1 H Lymph % (Auto) 6.1 L Bland % (Auto) 4.6 Eos % (Auto) 0.0 Baso % (Auto) 0.1 L Lymph # (Auto) 0.67 L Bland # (Auto) 0.5 Eos # (Auto) 0.0 Baso # (Auto) 0.0 Abs Immat Gran (auto) 0.12 H Absolute Neuts (auto) 9.7 H Absolute Nucleated RBC 0.030 H Nucleated RBC % 0.3 H Platelet Estimate Adequate Hypochromasia 1+ Target Cells 1+ Ovalocytes 1+ Schistocytes None seen Sodium 152 H Potassium 3.6 Chloride 107 Carbon Dioxide > 40 H Anion Gap BUN 95 H D Creatinine 1.70 H Estim Creat Clear Calc 26 Estimated GFR 29 L Glucose 123 H Lactic Acid 1.7 Calcium 9.6 Magnesium 1.8 Iron 20 L TIBC 172 L % Saturation 12 L Total Bilirubin 0.7 AST 17 ALT 14 Alkaline Phosphatase 89 Total Protein 7.0 Albumin 3.0 L Stl Occult Blood (IFOB) Positive H
[2024-08-30 15:16] LABS: Alanine Aminotransferase 14 U/L (6-35); Albumin Level 3.1 g/dL (3.5-5.1); Alkaline Phosphatase 96 U/L (38-126); Aspartate Amino Transferase 17 U/L (14-36); Bilirubin,Total 0.8 mg/dL (0.2-1.3); Blood Urea Nitrogen 99 mg/dL (7-17); Calcium 9.7 mg/dL (8.4-10.2); Carbon Dioxide > 40 mmol/L (22-30); Chloride 107 mmol/L (98-107); Estimated CRCL calculation 27 ml/min; Estimated Glomerular Filt Rate 32; Glucose 149 mg/dL (65-110); Magnesium 1.7 mg/dL (1.6-2.3); Potassium 3.5 mmol/L (3.4-5.0); Sodium 151 mmol/L (137-145)
--- NOTE | 2024-08-30 17:25 | PM.IMPN ---
Progress Note: A&P Assessment and Plan (1) Sepsis: Qualifiers: Sepsis type: sepsis due to unspecified organism Sepsis acute organ dysfunction status: with acute organ dysfunction Severe sepsis acute organ dysfunction type: acute renal failure Acute renal failure type: unspecified Severe sepsis shock status: without septic shock Qualified Code(s): A41.9 - Sepsis, unspecified organism; R65.20 - Severe sepsis without septic shock; N17.9 - Acute kidney failure, unspecified Code(s): A41.9 - Sepsis, unspecified organism Status: Acute Assessment and Plan: The patient's hypotension could be strictly cardiac in nature versus hypovolemia but cannot rule out source of infection or sepsis. Patient received cefepime Flagyl and vancomycin in the ER to treat for possible infected foot wound. Will switch antibiotic to Ceftriaxone 2 gm IVPB daily, change Flagyl to oral, and stop Vancomycin. Patient was noted to have mild elevation in white count and does have some chronic wounds but they do not visually a appear to be acutely infected but given her condition this cannot completely be ruled out especially in the setting of acute increasing ESR and CRP. She is not febrile. Blood cultures no growth to date. Procalcitonin 2.3. BP remains stable WBC improved from 12.3>10.7>10.2>9.7 (2) Metabolic encephalopathy: Code(s): G93.41 - Metabolic encephalopathy Status: Acute Assessment and Plan: Likely due to uremia/azotemia with markedly elevated BUN above baseline. However cannot rule out some component of encephalopathy due to acute infection. resolved (3) Acute on chronic renal failure: Qualifiers: Acute renal failure type: unspecified Chronic kidney disease stage: stage 4 (severe) Qualified Code(s): N17.9 - Acute kidney failure, unspecified; N18.4 - Chronic kidney disease, stage 4 (severe) Code(s): N17.9 - Acute kidney failure, unspecified; N18.9 - Chronic kidney disease, unspecified Status: Acute Assessment and Plan: Most likely multifactorial. It is certainly component of hypovolemia decreased fluid intake given the patient's clinical appearance. Patient is also on diuretic therapy and has some prerenal component due to acute on chronic hypotension. Patient's BUN has increased markedly in this is less likely causing up component of her decreased oral intake and or confusion due to uremia. Will hold nephrotoxic medications including Entresto, Bumex and metolazone. BUN/CR 115/1.6 on am labs Consult Nephrology for further recommendations. Baseline Cr runs approximately 1.7-2.2 BUN 99, Cr 1.6 patient also appears to be fluid overloaded with pulm edema per chest imaging Nephrology following and noted patient does not need dialysis at this time (4) Hypokalemia: Code(s): E87.6 - Hypokalemia Status: Acute Assessment and Plan: resolved monitor and replace accordingly (5) Hypotension: Qualifiers: Hypotension type: hypotension due to hypovolemia Qualified Code(s): E86.1 - Hypovolemia Code(s): I95.9 - Hypotension, unspecified Status: Acute Assessment and Plan: The patient has some component of chronic hypotension with cardiology notes mentioning patient had prior asymptomatic hypotension with systolic blood pressures in the 90s. BP remains stable at 127/32 Midodrine 10 mg PO TID Encourage PO intake. Can continue Midodrine for now. continue holding Entresto, Bumex, Metolazone for now. Cardiology input appreciated (6) Cardiomyopathy: Qualifiers: Cardiomyopathy type: ischemic Qualified Code(s): I25.5 - Ischemic cardiomyopathy Code(s): I42.9 - Cardiomyopathy, unspecified Status: Acute Assessment and Plan: Patient's chest x-ray appears similar to prior. After receiving 30 mL/kilos fluid bolus patient's oxygen requirement did go up from her baseline 1 L up to 3 L. the patient's BNP is markedly elevated compared to prior values. Wondering if recent initiation of midodrine may have contributed to to an acute decompensation. The patient had recent echocardiogram earlier this month demonstrated EF that improved to 55%. With some right-sided ventricular enlargement and expected valvular abnormalities given the patient's history. Hold Entresto,Bumex, or metolazone without discussion with both Nephrology and Cardiology. cardiology following (7) Decubitus ulcer of sacral area: Qualifiers: Pressure injury stage: unspecified pressure injury stage Qualified Code(s): L89.159 - Pressure ulcer of sacral region, unspecified stage Code(s): L89.159 - Pressure ulcer of sacral region, unspecified stage Status: Acute Assessment and Plan: Wound Care consult. Antifungal barrier cream. Turn q 2. Surgery following in case intervention needs done. Chad 1 pack BID, encourage PO intake. (8) Ulcer of left heel: Code(s): L97.429 - Non-pressure chronic ulcer of left heel and midfoot with unspecified severity Status: Acute Assessment and Plan: Santyl to wound bed to promote healing. Waffle boots. Surgery following in case intervention needs done. Chad 1 pack BID, encourage PO intake. (9) Peripheral artery disease: Code(s): I73.9 - Peripheral vascular disease, unspecified Status: Acute Assessment and Plan: ABIs during her last hospitalization showed moderately decreased ABIs consistent with arterial occlusive disease. This can contribute to poor healing with her lower extremity ulcers. cardiology evaluated and noted most likely outpatient intervention (10) Elevated troponin: Code(s): R79.89 - Other specified abnormal findings of blood chemistry Status: Acute Assessment and Plan: Trop 0.617> 0.633>0.185 likely demand from sepsis trending down cardiology on board Plan Iron deficiency anemia r/o GI bleed hb 7.5, isat 9 Venofer 1000/1000 FOBT pending Gi eval noted, endoscopy on hold awaiting patient to be stable for procedure monitor h and h GI following Possible Pneumonia CT Chest showed possible Atypical pneumonia On Rocephin and Day 2 Doxycycline monitor FTT/protein energy malnutrition appetite and oral intake improving start Dronabinol continue protein supplements dietitian consulted Paroxysmal Afib with RVR Continue Amiodarone per cardiology Not on Anticoagulation at home due GI bleed issues monitor cards following DVT prophylaxis on Sq heparin Discussed care plan with and patient at bedside Subjective Date/time seen: 08/30/24 17:25 Interval history: Comfortable at bedside earlier in the morning when i encountered her however she had a tachycardic episode this afternoon and EKG showed Afib RVR Cardiology started patient on Amiodarone 400mg bid Patient noted appetitei is better today Review of Systems Review of Systems: All systems reviewed & are unremarkable except as noted in HPI and below ROS unobtainable: Yes unobtainable due to mental status Exam Narrative: AF HR 68 RR 20 SPO2 100 2L NC BP 127/32 General: female in no acute respiratory distress who is nontoxic appearing, lying semi recumbent in bed. HEENT: Normocephalic. Atraumatic. Extraocular movement intact. Sclera clear and anicteric. No facial asymmetry. Chest: Lungs are coarse to auscultation bilaterally. No wheezes or crackles. Remains on 2L NC. CV: Heart was regular rate and rhythm. S1-S2. No murmurs, gallops, or rubs. Abd: Abdomen was soft. Nontender. Nondistended. Positive bowel sounds. No organomegaly or masses. Ext: No clubbing, cyanosis, or edema. 2+ DP pulses bilaterally. Neuro: Patient is alert and oriented x4. Cranial nerves 2-12 are intact. Speech is clear. Const: General: comfortable and no acute distress Other: Acutely ill-appearing, obese, appears older than stated age HENMT: Other: Head is normocephalic atraumatic, lips are dry with peeling skin the, mucous membranes are dry, fair dentition but exam limited as the patient only minimally opens her mouth Eyes: Other: Pupils are equal and reactive, marked conjunctival pallor, no scleral icterus Neck: Other: No obvious JVD, large neck circumference, supple Resp: Effort & Inspection: normal respiratory effort Auscultation: clear to auscultation bilaterally Other: Mild tachypnea, accessory muscle use, decreased breath sounds bilaterally most notably at the bases Cardio: Rate: regular rate Rhythm: regular rhythm Other: paced 71 GI: Auscultation: normal bowel sounds Other: Obese, soft, nontender : Other: Melchor catheter in place with 250 mL of dark yellow urine Urinary Catheter: Urinary Catheter: patent and draining (yellow) Skin: General skin exam: wounds noted Wounds: wounds noted Other: surgical evaluation noted today Right lateral lower leg ulcer appears superficial but with 100% of the wound bed dark red/purple and black with mild localized pink discoloration of the skin around the border of the wound. No crepitus, no purulent drainage, and no odor. Unchanged from yesterday. Right heel with a purple deep tissue injury measuring 5 x 6 cm, nonblanchable, all of the overlying skin is intact. Stage IV left heel ulcer measuring 4.5 x 6 x 1 cm with more yellow and mendes slough in about 80% of the wound bed today. No purulent drainage, no crepitus, and no foul odor . Neuro: Speech: normal speech Other: Patient is alert oriented to person, place and year, she is confused as to time and thought the month was August already she is a poor historian regarding recent events and why she was brought to the hospital, speech is slow and clear but only answering in 1-2 word intervals, patient has 5/5 strength on the left hostler helper and 3/5 strength on the right, patient was unable to pull her feet away from noxious stimuli Extrem: General: pedal edema bilaterally 2+ Other: Patient has chronic wounds 1 of the posterior right lower calf with a slightly larger base than previous but base appears clean no evidence of surrounding erythema (please see nursing documentation for imaging), and black eschar on the left heel dry, no drainage, no surrounding erythema, 1+ pretibial edema bilateral Psych: Mental Status: mental status grossly normal Affect: normal affect Other: Affect flat Objective Data Vital Signs Vital Signs: Vital Signs - 24 hr 08/29/24 18:00 08/29/24 18:00 08/29/24 19:37 Temperature 97.8 F 98.9 F Pulse Rate 72 79 79 Respiratory Rate 24 H 22 H Blood Pressure 108/42 L 116/51 L Pulse Oximetry 100 95 Oxygen Delivery Oxygen Flow Rate 08/29/24 20:00 08/29/24 20:00 08/29/24 22:00 Temperature Pulse Rate 74 74 78 Respiratory Rate 22 H Blood Pressure Pulse Oximetry 95 Oxygen Delivery Nasal Cannula Oxygen Flow Rate 2 08/30/24 01:08 08/30/24 00:00 08/30/24 00:00 Temperature 98.6 F Pulse Rate 116 H 70 70 Respiratory Rate 22 H 22 H Blood Pressure 109/58 L Pulse Oximetry 99 95 Oxygen Delivery Nasal Cannula Oxygen Flow Rate 2 08/30/24 01:54 08/30/24 04:17 08/30/24 04:00 Temperature 97.7 F Pulse Rate 98 99 108 H Respiratory Rate 23 H Blood Pressure 94/50 L Pulse Oximetry 92 Oxygen Delivery Oxygen Flow Rate 08/30/24 04:00 08/30/24 06:00 08/30/24 08:23 Temperature 98.1 F Pulse Rate 108 H 79 75 Respiratory Rate 23 H 20 Blood Pressure 123/53 L Pulse Oximetry 92 100 Oxygen Delivery Nasal Cannula Oxygen Flow Rate 2 08/30/24 08:00 08/30/24 10:00 08/30/24 08:00 Temperature Pulse Rate 71 79 Respiratory Rate Blood Pressure Pulse Oximetry 100 Oxygen Delivery Nasal Cannula Oxygen Flow Rate 2 08/30/24 12:03 08/30/24 12:00 08/30/24 12:00 Temperature 97.8 F Pulse Rate 74 73 Respiratory Rate 22 H Blood Pressure 116/54 L Pulse Oximetry 97 98 Oxygen Delivery Nasal Cannula Oxygen Flow Rate 2 08/30/24 14:00 08/30/24 14:41 08/30/24 14:43 Temperature Pulse Rate 132 H 81 81 Respiratory Rate Blood Pressure 117/56 L 117/56 L Pulse Oximetry Oxygen Delivery Oxygen Flow Rate 08/30/24 16:24 08/30/24 16:25 Temperature 98.0 F Pulse Rate 117 H 117 H Respiratory Rate 20 Blood Pressure 99/59 L 99/59 L Pulse Oximetry 94 Oxygen Delivery Oxygen Flow Rate Intake/Output Intake/Output: Intake & Output 08/27/24 08/28/24 08/29/24 08/30/24 23:59 23:59 23:59 23:59 Intake Total 417 160 1413.1 257.8 Output Total 1200 2450 1050 1000 Balance -380 -1928 302.1 -742.2 Meds/Results Medications: Active Medications Generic Name Dose Route Start Last Admin Trade Name Freq PRN Reason Stop Dose Admin Acetaminophen 650 mg 08/27/24 21:31 08/28/24 23:47 Acetaminophen 325 Mg Tablet PO 650 mg Q6H PRN Administration Mild Pain (1-3) or Fever Allopurinol 50 mg 08/26/24 09:00 08/30/24 08:15 Allopurinol 50 Mg Tablet PO 50 mg Q48H MADELINE Administration Aspirin 325 mg 08/26/24 09:00 08/30/24 08:15 Aspirin 325 Mg Tablet PO 325 mg DAILY [facility] Administration Collagenase 1 applic 08/26/24 09:00 08/30/24 08:15 Collagenase Oint 30 Gm Tube TOPICAL 1 applic QAM [facility] Administration Dronabinol 2.5 mg 08/29/24 17:00 08/30/24 16:51 Dronabinol (*Crx) 2.5 Mg Capsule PO 2.5 mg BID [facility] Administration Epoetin Crispin-epbx 10,000 units 08/29/24 09:00 08/29/24 08:52 Epoetin Crispin-Epbx 10,000 Units/Ml Vial SUB-Q 10,000 units TUTHSA@09 [facility] Administration Guaifenesin 600 mg 08/27/24 10:00 08/30/24 08:15 Guaifenesin 12 Hr 600 Mg Tabcr PO 09/03/24 09:59 600 mg Q12HR MADELINE Administration Heparin Sodium (Porcine) 5,000 units 08/26/24 09:00 08/30/24 08:15 Heparin Sodium 5,000 Units/Ml Vial SUB-Q 5,000 units Q12HR MADELINE Administration Ceftriaxone Sodium 2 gm in 100 mls @ 200 mls/hr 08/26/24 14:00 08/30/24 08:45 Rocephin 2 Gm/Ns 100 Ml IVPB Infused DAILY MADELINE Infusion Doxycycline Hyclate 100 mg in 100 mls @ 100 mls/hr 08/29/24 17:00 08/30/24 16:51 Vibramycin 100 Mg/Ns 100 Ml IVPB 100 mls/hr Q12H MADELINE Administration Amiodarone HCl/Dextrose 360 mg in 200 mls @ 33.333 mls/hr 08/30/24 14:30 08/30/24 16:25 Nexterone 360 Mg/D5w 200 Ml IV CONT 08/30/24 20:29 1 mg/min .Q6H ONE 33.33 mls/hr Infusion 1 MG/MIN Levothyroxine Sodium 75 mcg 08/26/24 06:30 08/30/24 05:18 Levothyroxine Sodium 75 Mcg Tablet PO 75 mcg DAILY@0630 MADELINE Administration Metronidazole 500 mg 08/26/24 22:00 08/30/24 13:07 Metronidazole 500 Mg Tablet PO 500 mg Q8HR MADELINE Administration Midodrine 10 mg 08/26/24 09:00 08/30/24 16:51 Midodrine Hcl 10 Mg Tablet PO 10 mg TID MADELINE Administration Umeclidinium [place] 1 puff 08/26/24 08:00 08/30/24 08:09 Umeclidinium [place] 62.5 Mcg Ellipta INHALATION Not Given DAILYRT [facility] Radiology Results: ITS Impressions Foot X-Ray 08/25/24 18:30 IMPRESSION: Very prominent soft tissue ulcer at the posterior heel, with suggestion of calcaneal exposure Soft tissue swelling Prominent osteopenia; this may obscure fracture or bone destruction. If there is concern for osteomyelitis, consider three-phase radionuclide bone scan. Tibia/Fibula X-Ray 08/25/24 18:35 IMPRESSION: Osteopenia Soft tissue swelling Arterial calcifications Head CT 08/25/24 18:43 IMPRESSION: Cerebral atherosclerosis and chronic small vessel ischemic changes of the cerebral white matter Small chronic right frontal probable cerebrovascular accident No acute intracranial finding or hemorrhage Chest CT 08/29/24 11:08 IMPRESSION: 1. Groundglass opacities in right middle lobe and anterior segment right upper lobe, consistent with mild pulmonary edema versus atypical pneumonia. 2. Small pleural effusions. Labs Labs: Laboratory Results - last 24 hr 08/29/24 08/30/24 08/30/24 16:19 04:39 10:55 WBC 11.0 H RBC 3.40 L Hgb 8.5 L Hct 29.1 L MCV 85.6 MCH 25.0 L MCHC 29.2 L RDW 19.9 H Plt Count 243 MPV 12.3 H Immature Gran % (Auto) 1.1 H Neut % (Auto) 88.1 H Lymph % (Auto) 6.1 L Tate % (Auto) 4.6 Eos % (Auto) 0.0 Baso % (Auto) 0.1 L Lymph # (Auto) 0.67 L Tate # (Auto) 0.5 Eos # (Auto) 0.0 Baso # (Auto) 0.0 Abs Immat Gran (auto) 0.12 H Absolute Neuts (auto) 9.7 H Absolute Nucleated RBC 0.030 H Nucleated RBC % 0.3 H Platelet Estimate Adequate Hypochromasia 1+ Target Cells 1+ Ovalocytes 1+ Schistocytes None seen Sodium 152 H Potassium 3.6 Chloride 107 Carbon Dioxide > 40 H Anion Gap BUN 95 H D Creatinine 1.70 H Estim Creat Clear Calc 26 Estimated GFR 29 L Glucose 123 H Lactic Acid 1.7 Calcium 9.6 Magnesium 1.8 Iron 20 L TIBC 172 L % Saturation 12 L Total Bilirubin 0.7 AST 17 ALT 14 Alkaline Phosphatase 89 Total Protein 7.0 Albumin 3.0 L Stl Occult Blood (IFOB) Positive H 08/30/24 14:38 WBC RBC Hgb Hct MCV MCH MCHC RDW Plt Count MPV Immature Gran % (Auto) Neut % (Auto) Lymph % (Auto) Tate % (Auto) Eos % (Auto) Baso % (Auto) Lymph # (Auto) Tate # (Auto) Eos # (Auto) Baso # (Auto) Abs Immat Gran (auto) Absolute Neuts (auto) Absolute Nucleated RBC Nucleated RBC % Platelet Estimate Hypochromasia Target Cells Ovalocytes Schistocytes Sodium 151 H Potassium 3.5 Chloride 107 Carbon Dioxide > 40 H Anion Gap BUN 99 H Creatinine 1.60 H Estim Creat Clear Calc 27 Estimated GFR 32 L Glucose 149 H Lactic Acid Calcium 9.7 Magnesium 1.7 Iron TIBC % Saturation Total Bilirubin 0.8 AST 17 ALT 14 Alkaline Phosphatase 96 Total Protein 7.0 Albumin 3.1 L Stl Occult Blood (IFOB) Quality VTE Prophylaxis VTE prophylaxis: pharmacologic ordered (Heparin 5000 units subQ q.12 hours)
[2024-08-31] VITALS (19 sets, daily range): BP systolic 100–115; BP diastolic 45–53; PULSE 55–84; RESP 20–24; TEMP 36.3–36.4; O2SAT 92–100
[2024-08-31 04:56] LABS: Basophils Percent Auto 0.3 % (0.2-1.2); Eosinophils Percent Auto 0.1 % (0-4.4); Hematocrit 27.2 % (37.0-47.0); Hemoglobin 7.7 g/dL (12.0-15.0); Immature Granulocyte Absolute 0.24 K/mm3 (0.00-0.031); Immature Granulocyte Percent A 1.8 % (0-0.5); Lymphocytes Absolute Auto 0.95 K/mm3 (0.9-3.2); Mean Corpuscular HGB Conc 28.3 g/dl (32-36); Mean Corpuscular Hemoglobin 24.7 pg (26-34); Mean Corpuscular Volume 87.2 fl (80-100); Mean Platelet Volume 12.7 fl (7.4-10.4); Monocytes Absolute Auto 0.7 K/mm3 (0.1-0.6); Monocytes Percent Auto 4.8 % (2.6-8.5); Neutrophils Absolute Auto 11.7 K/mm3 (1.3-6.7); Nucleated Red Blood Cells Perc 0.8 % (0.0-0.2); Platelet Count Result 236 k/mm3 (150-375); Red Blood Count 3.12 M/mm3 (4.2-5.4); Red Cell Distribution Width 20.5 % (11.5-14.5); White Blood Count 13.6 K/mm3 (4.5-10.0)
[2024-08-31 05:19] LABS: Hypochromasia 1+; Ovalocytes 1+; Platelet Estimate Adequate (Adequate); Schistocytes None Seen; Target Cells 1+
[2024-08-31 05:30] LABS: Alanine Aminotransferase 12 U/L (6-35); Albumin Level 2.9 g/dL (3.5-5.1); Alkaline Phosphatase 89 U/L (38-126); Aspartate Amino Transferase 19 U/L (14-36); Bilirubin,Total 0.4 mg/dL (0.2-1.3); Blood Urea Nitrogen 101 mg/dL (7-17); Calcium 9.7 mg/dL (8.4-10.2); Carbon Dioxide > 40 mmol/L (22-30); Chloride 109 mmol/L (98-107); Estimated CRCL calculation 27 ml/min; Estimated Glomerular Filt Rate 32; Glucose 110 mg/dL (65-110); Potassium 3.2 mmol/L (3.4-5.0); Sodium 153 mmol/L (137-145)
[2024-08-31] MEDS: DOXYCYCLINE 100 MG/NS 100 ML 100 MG/100 ML BAG IVPB (05:44)
[2024-08-31] MEDS: LEVOTHYROXINE SODIUM 75 MCG TABLET PO (05:44)
[2024-08-31] MEDS: metroNIDAZOLE 500 MG TABLET PO ×3 (05:44→20:52)
--- NOTE | 2024-08-31 08:05 | P.PNCA_ITS ---
Progress Note: A&P Assessment and Plan (1) Atrial fibrillation with rapid ventricular response: Code(s): I48.91 - Unspecified atrial fibrillation Status: Acute Assessment and Plan: 74 year old female with CAD s/p CABG (BARR-LAD, SVG-RI), paroxysmal atrial fibrillation, heart failure with reduced LVEF s/p biventricular ICD, mitral regurgitation s/p bioprosthetic mitral valve replacement with a 31mm Gilbert b ioprosthesis, tricuspid valve repair, chronic kidney disease stage 4 who was admitted for sepsis Hypernatremia, FRANK on CKD: Nephrology consulted and following. Critical limb ischemia -Has lower extremity wounds bilaterally with abnormal Doppler studies -She will eventually require lower extremity angiography when she recovers from her sepsis and her kidney function stabilizes -Outpatient follow up with Dr. Nelson regarding this. Paroxysmal atrial fibrillation with RVR: -continue amiodarone 400 mg b.i.d.. Heart rates are better controlled. -Not on anticoagulation at home due to issues with GI bleeding in the past and s/p left atrial appendage ligation. Chronic heart failure with reduced LVEF status post biventricular ICD, now recovered LVEF -Continue holding heart failure medications giving her midodrine requirements due to low blood pressure. -She appears euvolemic today CAD s/p CABG (BARR-LAD, SVG-RI) -Continue aspirin Mitral regurgitation s/p bioprosthetic mitral valve replacement with a 31mm Gilbert bioprosthesis -Normal function valve on echocardiogram performed recently. (2) Acute kidney injury superimposed on CKD: Code(s): N17.9 - Acute kidney failure, unspecified; N18.9 - Chronic kidney disease, unspecified Status: Acute (3) Hypernatremia: Code(s): E87.0 - Hyperosmolality and hypernatremia Status: Acute Assessment and Plan: Sodium remains elevated (4) Critical limb ischemia of both lower extremities: Code(s): I70.223 - Atherosclerosis of [place] arteries of extremities with rest pain, bilateral legs Status: Acute (5) CAD (coronary artery disease): Qualifiers: Coronary Disease-Associated Artery/Lesion type: [place] artery [place] vs. transplanted heart: [place] heart Associated angina: without angina Qualified Code(s): I25.10 - Atherosclerotic heart disease of [place] coronary artery without angina pectoris Code(s): I25.10 - Atherosclerotic heart disease of [place] coronary artery without angina pectoris Status: Chronic (6) Cardiomyopathy: Qualifiers: Cardiomyopathy type: ischemic Qualified Code(s): I25.5 - Ischemic cardiomyopathy Code(s): I42.9 - Cardiomyopathy, unspecified Status: Acute (7) History of mitral valve replacement with bioprosthetic valve: Onset Date: 04/2021 Code(s): Z95.3 - Presence of xenogenic heart valve Status: Acute (8) H/O tricuspid valve annuloplasty: Code(s): Z98.890 - Other specified postprocedural states Status: Acute Subjective Date/time seen: 08/31/24 08:05 74 year old female with CAD s/p CABG (BARR-LAD, SVG-RI), paroxysmal atrial fibrillation, heart failure with reduced LVEF s/p biventricular ICD, mitral regurgitation s/p bioprosthetic mitral valve replacement with a 31mm Gilbert bioprosthesis, tricuspid valve repair, chronic kidney disease stage 4. Patient follows with Dr. Gupta in the office. Recently admitted to [facility] for septic shock. Patient admitted to [facility] on 08/25 for altered mental status, unable to get out of bed. She was noted to be hypotensive on admission. Had FRANK on CKD. Her CHF meds have been placed on hold given FRANK on CKD and hypotension. She has been started on Midodrine. 08/29 - She had episode atrial fibrillation rapid ventricular rate for which she was started on amiodarone drip. She appears to be in pain today and did not want to be bothered; however she denies any shortness of breath or chest pain. She does have lower extremity wounds bilaterally with abnormal Doppler studies 08/30: Has atrial fibrillation with RVR earlier today. She states she feels okay, but appears confused on examination. Date of service 08/31: Resting comfortably in bed in semi flat position. No specific complaints. Heart rate currently AFib 100-105 beats per minute. Denies shortness of breath Review of Systems Review of Systems: All systems reviewed & are unremarkable except as noted in HPI and below (HPI) Cardiovascular: Cardiovascular: Reports as per HPI Exam Const: General: uncomfortable Other: Chronically ill appearing female HENMT: Mouth: Yes moist mucous membranes and Yes dry mucous membranes Eyes: General: appearance normal, both eyes and all related structures Sclera: sclerae normal Neck: Neck: no JVD Resp: Effort & Inspection: normal respiratory effort Auscultation: clear to auscultation bilaterally Cardio: Rate: regular rate Rhythm: regular rhythm Heart sounds: no murmurs Skin: General skin exam: normal color Neuro: Other: Appears confused Extrem: General: edema Other: Wounds on both lower extremities Psych: Mental Status: mental status grossly normal Affect: normal affect Objective Data Vital Signs Vital Signs: Vital Signs - 24 hr 08/30/24 08:23 08/30/24 10:00 08/30/24 12:03 Temperature 36.7 C 36.6 C Pulse Rate 75 79 74 Respiratory Rate 20 22 H Blood Pressure 123/53 L 116/54 L Pulse Oximetry 100 97 Oxygen Delivery Oxygen Flow Rate 08/30/24 12:00 08/30/24 12:00 08/30/24 14:00 Temperature Pulse Rate 73 132 H Respiratory Rate Blood Pressure Pulse Oximetry 98 Oxygen Delivery Nasal Cannula Oxygen Flow Rate 2 08/30/24 14:41 08/30/24 14:43 08/30/24 16:24 Temperature 36.7 C Pulse Rate 81 81 117 H Respiratory Rate 20 Blood Pressure 117/56 L 117/56 L 99/59 L Pulse Oximetry 94 Oxygen Delivery Oxygen Flow Rate 08/30/24 16:25 08/30/24 16:00 08/30/24 16:00 Temperature Pulse Rate 117 H 104 H Respiratory Rate Blood Pressure 99/59 L Pulse Oximetry 98 Oxygen Delivery Nasal Cannula Oxygen Flow Rate 2 08/30/24 18:00 08/30/24 18:47 08/30/24 18:25 Temperature Pulse Rate 92 70 70 Respiratory Rate Blood Pressure 99/71 L 99/71 L Pulse Oximetry Oxygen Delivery Oxygen Flow Rate 08/30/24 20:00 08/30/24 20:00 08/30/24 20:00 Temperature 36.7 C Pulse Rate 70 68 68 Respiratory Rate 20 20 Blood Pressure 124/46 L Pulse Oximetry 97 97 Oxygen Delivery Nasal Cannula Oxygen Flow Rate 2 08/31/24 00:00 08/30/24 22:00 08/31/24 00:00 Temperature 36.4 C L Pulse Rate 67 70 68 Respiratory Rate 24 H Blood Pressure 108/53 L Pulse Oximetry 100 Oxygen Delivery Oxygen Flow Rate 08/31/24 00:00 08/31/24 02:00 08/31/24 03:37 Temperature Pulse Rate 68 68 68 Respiratory Rate 24 H Blood Pressure Pulse Oximetry 100 Oxygen Delivery Nasal Cannula Oxygen Flow Rate 2 08/31/24 03:37 08/31/24 04:00 08/31/24 06:00 Temperature 36.4 C Pulse Rate 68 64 68 Respiratory Rate 24 H 20 Blood Pressure 109/45 L Pulse Oximetry 100 99 Oxygen Delivery Nasal Cannula Oxygen Flow Rate 2 Intake/Output Intake/Output: Intake & Output 08/28/24 08/29/24 08/30/24 08/31/24 23:59 23:59 23:59 23:59 Intake Total 522 1352.1 424.5 240 Output Total 2450 1050 1000 450 Balance -1928 302.1 -575.5 -210 Meds/Results Medications: Active Medications Generic Name Dose Route Start Last Admin Trade Name Freq PRN Reason Stop Dose Admin Acetaminophen 650 mg 08/27/24 21:31 08/28/24 23:47 Acetaminophen 325 Mg Tablet PO 650 mg Q6H PRN Administration Mild Pain (1-3) or Fever Allopurinol 50 mg 08/26/24 09:00 08/30/24 08:15 Allopurinol 50 Mg Tablet PO 50 mg Q48H [facility] Administration Amiodarone HCl 400 mg 08/31/24 08:00 Amiodarone Hcl 200 Mg Tablet PO BIDWM [facility] Aspirin 325 mg 08/26/24 09:00 08/30/24 08:15 Aspirin 325 Mg Tablet PO 325 mg DAILY [facility] Administration Collagenase 1 applic 08/26/24 09:00 08/30/24 08:15 Collagenase Oint 30 Gm Tube TOPICAL 1 applic QAM [facility] Administration Dronabinol 2.5 mg 08/29/24 17:00 08/30/24 16:51 Dronabinol (*Crx) 2.5 Mg Capsule PO 2.5 mg BID [facility] Administration Epoetin Crispin-epbx 10,000 units 08/29/24 09:00 08/29/24 08:52 Epoetin Crispin-Epbx 10,000 Units/Ml Vial SUB-Q 10,000 units TUTHSA@09 [facility] Administration Guaifenesin 600 mg 08/27/24 10:00 08/30/24 21:06 Guaifenesin 12 Hr 600 Mg Tabcr PO 09/03/24 09:59 600 mg Q12HR [facility] Administration Heparin Sodium (Porcine) 5,000 units 08/26/24 09:00 08/30/24 21:06 Heparin Sodium 5,000 Units/Ml Vial SUB-Q 5,000 units Q12HR [facility] Administration Ceftriaxone Sodium 2 gm in 100 mls @ 200 mls/hr 08/26/24 14:00 08/30/24 08:45 Rocephin 2 Gm/Ns 100 Ml IVPB Infused DAILY [facility] Infusion Doxycycline Hyclate 100 mg in 100 mls @ 100 mls/hr 08/29/24 17:00 08/31/24 05:44 Vibramycin 100 Mg/Ns 100 Ml IVPB 100 mls/hr Q12H [facility] Administration Dextrose 1,000 mls @ 100 mls/hr 08/31/24 07:55 Dextrose 5% 1,000 Ml IV CONT .Q10H [facility] Levothyroxine Sodium 75 mcg 08/26/24 06:30 08/31/24 05:44 Levothyroxine Sodium 75 Mcg Tablet PO 75 mcg DAILY@0630 [facility] Administration Metronidazole 500 mg 08/26/24 22:00 08/31/24 05:44 Metronidazole 500 Mg Tablet PO 500 mg Q8HR [facility] Administration Midodrine 10 mg 08/26/24 09:00 08/30/24 16:51 Midodrine Hcl 10 Mg Tablet PO 10 mg TID [facility] Administration Umeclidinium [place] 1 puff 08/26/24 08:00 08/30/24 08:09 Umeclidinium [place] 62.5 Mcg Ellipta INHALATION Not Given DAILYRT [facility] Radiology Results: ITS Impressions Foot X-Ray 08/25/24 18:30 IMPRESSION: Very prominent soft tissue ulcer at the posterior heel, with suggestion of calcaneal exposure Soft tissue swelling Prominent osteopenia; this may obscure fracture or bone destruction. If there is concern for osteomyelitis, consider three-phase radionuclide bone scan. Tibia/Fibula X-Ray 08/25/24 18:35 IMPRESSION: Osteopenia Soft tissue swelling Arterial calcifications Head CT 08/25/24 18:43 IMPRESSION: Cerebral atherosclerosis and chronic small vessel ischemic changes of the cerebral white matter Small chronic right frontal probable cerebrovascular accident No acute intracranial finding or hemorrhage Chest CT 08/29/24 11:08 IMPRESSION: 1. Groundglass opacities in right middle lobe and anterior segment right upper lobe, consistent with mild pulmonary edema versus atypical pneumonia. 2. Small pleural effusions. Labs Labs: Laboratory Results - last 24 hr 08/30/24 08/30/24 08/31/24 10:55 14:38 04:34 WBC 13.6 H RBC 3.12 L Hgb 7.7 L Hct 27.2 L MCV 87.2 MCH 24.7 L MCHC 28.3 L RDW 20.5 H Plt Count 236 MPV 12.7 H Immature Gran % (Auto) 1.8 H Neut % (Auto) 86.0 H Lymph % (Auto) 7.0 L [place] % (Auto) 4.8 Eos % (Auto) 0.1 Baso % (Auto) 0.3 Lymph # (Auto) 0.95 [place] # (Auto) 0.7 H Eos # (Auto) 0.0 Baso # (Auto) 0.0 Abs Immat Gran (auto) 0.24 H Absolute Neuts (auto) 11.7 H Absolute Nucleated RBC 0.110 H Nucleated RBC % 0.8 H Platelet Estimate Adequate Hypochromasia 1+ Target Cells 1+ Ovalocytes 1+ Schistocytes None seen Sodium 151 H 153 H Potassium 3.5 3.2 L Chloride 107 109 H Carbon Dioxide > 40 H > 40 H Anion Gap BUN 99 H 101 H Creatinine 1.60 H 1.60 H Estim Creat Clear Calc 27 27 Estimated GFR 32 L 32 L Glucose 149 H 110 Calcium 9.7 9.7 Magnesium 1.7 Total Bilirubin 0.8 0.4 AST 17 19 ALT 14 12 Alkaline Phosphatase 96 89 Total Protein 7.0 6.0 L Albumin 3.1 L 2.9 L Stl Occult Blood (IFOB) Positive H
[2024-08-31] MEDS: UMECLIDINIUM BROMIDE 62.5 MCG ELLIPTA 1 PUFF INHALATION (08:58)
[2024-08-31] MEDS: POTASSIUM CHLORIDE INJ 40 MEQ in SODIUM CHLORIDE 0.9% IV 500 ML 130 MEQ IVPB (09:34)
[2024-08-31] MEDS: DEXTROSE 5% 1,000 ML 1,000 ML 100 ML IV CONT (09:35)
[2024-08-31] MEDS: cefTRIAXone 2 GM/NS 100 ML 2 GM/100 ML BAG IVPB (09:44)
[2024-08-31] MEDS: guaiFENesin 12 HR 600 MG TABCR PO ×2 (09:45→20:52)
[2024-08-31] MEDS: HEPARIN SODIUM 5,000 UNITS/ML VIAL 5000 UNITS SUB-Q ×2 (09:45→20:52)
[2024-08-31] MEDS: MIDODRINE HCL 10 MG TABLET PO ×3 (09:45→18:20)
[2024-08-31] MEDS: ASPIRIN 325 MG TABLET PO (09:45)
[2024-08-31] MEDS: AMIODARONE HCL 200 MG TABLET 400 MG PO ×2 (09:45→18:18)
[2024-08-31] MEDS: droNABinol (*CRX) 2.5 MG CAPSULE PO (09:45)
[2024-08-31] MEDS: POTASSIUM CHLORIDE 20 MEQ PACKET (FOR LIQUID) 40 MEQ PO (09:46)
[2024-08-31] MEDS: EPOETIN ALFA-EPBX 10,000 UNITS/ML VIAL 10000 UNITS SUB-Q (10:13)
--- NOTE | 2024-08-31 11:40 | P.PNNP_ITS ---
Subjective Date/time seen: 08/31/24 11:40 Interval history: Follow-up for chronic kidney disease. States she feels blah but denies any acute complaints at the time of my visit; still with poor oral intake and not drinking very much either; Objective Data Vital Signs Vital Signs: Vital Signs Temp Pulse Resp BP Pulse Ox O2 Del Method O2 Flow Rate 08/31/24 11:40 97.5 F L 73 20 100/49 L 100 08/31/24 09:45 81 08/31/24 09:00 94 Nasal Cannula 2 08/31/24 08:15 97.5 F L 82 20 110/45 L 92 08/31/24 06:00 68 08/31/24 04:00 97.6 F 64 20 109/45 L 99 08/31/24 03:37 68 24 H 100 Nasal Cannula 2 08/31/24 03:37 68 08/31/24 02:00 68 08/31/24 00:00 68 24 H 100 Nasal Cannula 2 08/31/24 00:00 68 08/30/24 22:00 70 08/31/24 00:00 97.5 F L 67 24 H 108/53 L 100 08/30/24 20:00 68 20 97 Nasal Cannula 2 08/30/24 20:00 68 08/30/24 20:00 98.1 F 70 20 124/46 L 97 08/30/24 18:25 70 99/71 L 08/30/24 18:47 70 99/71 L 08/30/24 18:00 92 Intake/Output Intake/Output: Intake & Output 08/28/24 08/29/24 08/30/24 08/31/24 23:59 23:59 23:59 23:59 Intake Total 522 1352.1 424.5 720 Output Total 2450 1050 1000 450 Balance -1928 302.1 -575.5 270 Meds/Results Medications: Active Medications Generic Name Dose Route Start Last Admin Trade Name Freq PRN Reason Stop Dose Admin Acetaminophen 650 mg 08/27/24 21:31 08/28/24 23:47 Acetaminophen 325 Mg Tablet PO 650 mg Q6H PRN Administration Mild Pain (1-3) or Fever Allopurinol 50 mg 08/26/24 09:00 08/30/24 08:15 Allopurinol 50 Mg Tablet PO 50 mg Q48H [facility] Administration Amiodarone HCl 400 mg 08/31/24 08:00 08/31/24 09:45 Amiodarone Hcl 200 Mg Tablet PO 400 mg BIDWM [facility] Administration Aspirin 325 mg 08/26/24 09:00 08/31/24 09:45 Aspirin 325 Mg Tablet PO 325 mg DAILY [facility] Administration Collagenase 1 applic 08/26/24 09:00 08/30/24 08:15 Collagenase Oint 30 Gm Tube TOPICAL 1 applic QAM [facility] Administration Dronabinol 2.5 mg 08/29/24 17:00 08/31/24 09:45 Dronabinol (*Crx) 2.5 Mg Capsule PO 2.5 mg BID [facility] Administration Epoetin [place]pin-epbx 10,000 units 08/29/24 09:00 08/31/24 10:13 Epoetin [place]-Epbx 10,000 Units/Ml Vial SUB-Q 10,000 units TUTHSA@09 [facility] Administration Guaifenesin 600 mg 08/27/24 10:00 08/31/24 09:45 Guaifenesin 12 Hr 600 Mg Tabcr PO 09/03/24 09:59 600 mg Q12HR [facility] Administration Heparin Sodium (Porcine) 5,000 units 08/26/24 09:00 08/31/24 09:45 Heparin Sodium 5,000 Units/Ml Vial SUB-Q 5,000 units Q12HR [facility] Administration Dextrose 1,000 mls @ 100 mls/hr 08/31/24 07:55 08/31/24 09:35 Dextrose 5% 1,000 Ml IV CONT 100 mls/hr .Q10H [facility] Administration Ceftriaxone Sodium 2 gm/ 100 mls @ 200 mls/hr 09/01/24 09:00 Dextrose IVPB DAILY [facility] Doxycycline Hyclate 100 mg/ 100 mls @ 100 mls/hr 08/31/24 17:00 Dextrose IVPB Q12H [facility] Levothyroxine Sodium 75 mcg 08/26/24 06:30 08/31/24 05:44 Levothyroxine Sodium 75 Mcg Tablet PO 75 mcg DAILY@0630 [facility] Administration Metronidazole 500 mg 08/26/24 22:00 08/31/24 13:55 Metronidazole 500 Mg Tablet PO 500 mg Q8HR [facility] Administration Midodrine 10 mg 08/26/24 09:00 08/31/24 13:55 Midodrine Hcl 10 Mg Tablet PO 10 mg TID [facility] Administration Miscellaneous Information 1 each 09/01/24 09:00 Mix Ivs In D5w If Possible XX 10/01/24 08:59 DAILY [facility] Umeclidinium [place] 1 puff 08/26/24 08:00 08/31/24 08:58 Umeclidinium [place] 62.5 Mcg Ellipta INHALATION 1 puff DAILYRT [facility] Administration Radiology Results: ITS Impressions Foot X-Ray 08/25/24 18:30 IMPRESSION: Very prominent soft tissue ulcer at the posterior heel, with suggestion of calcaneal exposure Soft tissue swelling Prominent osteopenia; this may obscure fracture or bone destruction. If there is concern for osteomyelitis, consider three-phase radionuclide bone scan. Tibia/Fibula X-Ray 08/25/24 18:35 IMPRESSION: Osteopenia Soft tissue swelling Arterial calcifications Head CT 08/25/24 18:43 IMPRESSION: Cerebral atherosclerosis and chronic small vessel ischemic changes of the cerebral white matter Small chronic right frontal probable cerebrovascular accident No acute intracranial finding or hemorrhage Chest CT 08/29/24 11:08 IMPRESSION: 1. Groundglass opacities in right middle lobe and anterior segment right upper lobe, consistent with mild pulmonary edema versus atypical pneumonia. 2. Small pleural effusions. Labs Labs: Laboratory Tests 08/31/24 04:34 08/31/24 04:34 Calcium 9.7 Total Bilirubin 0.4 AST 19 ALT 12 Alkaline Phosphatase 89 Total Protein 6.0 L Albumin 2.9 L Microbiology 08/25/24 16:38 Blood Blood Culture - Final 08/25/24 16:42 Blood Blood Culture - Final
--- NOTE | 2024-08-31 11:40 | P.PNNP_ITS ---
Progress Note: A&P Assessment and Plan (1) Chronic kidney disease, stage 4 (severe): Code(s): N18.4 - Chronic kidney disease, stage 4 (severe) Status: Chronic Assessment and Plan: * baseline creatinine runs ~ 1.7 - 2.2mg/dl * at baseline currently if not better(although was elevated to 2.6mg/dl on admission) * however, her BUN was quite elevated above her baseline...(see #2) * based on outpatient evaluation, thought to be secondary to previous HTN and chronic prerenal azotemia from her CHF/cardiomyopathy with ongoing need for diuretic therapy (2) Azotemia: Code(s): R79.89 - Other specified abnormal findings of blood chemistry Status: Acute Assessment and Plan: * slow improvement * BUN was quite elevated as noted on admission * suspect multifactorial: * previous steroid use on last hospitalization * use of doxycyline (tetracycline antibiotics have been known to do this) * prerenal factors (volume depletion/diminished oral intake) * ongoing diuretic therapy * inflammation (new infection?) * r/o GI blood loss * agree with holding diuretics/Entresto for now * interestingly, BUN did improve with IVF boluses on admission * suspect a contributing component to confusion * if this fails to improve with conservative therapy, dialysis is a consideration... * however, I worry that dialysis may push her to ESRD status * trial of further D5W IVFs if respiratory status tolerates... * is this a situation where she is intravascularly dry (due to diminished ora l intake) despite outward signs of volume overload? * her rising/elevated sodium would support this * follow trend of repeat labs (3) Hypernatremia: Code(s): E87.0 - Hyperosmolality and hypernatremia Status: Acute Assessment and Plan: * this would suggest she is not drinking enough water * trial of D5W IVFs today * try to encourage more free water intake * on appetite stimulants * follow trend for now (4) Hypotension: Qualifiers: Hypotension type: hypotension due to hypovolemia Qualified Code(s): E86.1 - Hypovolemia Code(s): I95.9 - Hypotension, unspecified Status: Acute Assessment and Plan: * has a chronic component at baseline * started on midodrine on last hospitalization * midodrine was on hold on re-admission but has been restarted * follow trend of hemodynamics (5) Sepsis: Qualifiers: Acute renal failure type: unspecified Sepsis acute organ dysfunction st atus: with acute organ dysfunction Sepsis type: sepsis due to unspecified organism Severe sepsis acute organ dysfunction type: acute renal failure Severe sepsis shock status: without septic shock Qualified Code(s): A41.9 - Sepsis, unspecified organism; R65.20 - Severe sepsis without septic shock; N17.9 - Acute kidney failure, unspecified Code(s): A41.9 - Sepsis, unspecified organism Status: Acute Assessment and Plan: * concern noted by low BP, elevated inflammatory markers, and elevated WBC * known LE and sacral wounds present * on empiric antibiotics * follow hemodynamics (6) Metabolic encephalopathy: Code(s): G93.41 - Metabolic encephalopathy Status: Acute Assessment and Plan: * due to uremia/azotemia +/- infection (?) * seems better now (but continues to fluctuate) * CT of head negative for any acute findings * follow mentation (7) Anemia: Code(s): D64.9 - Anemia, unspecified Status: Acute Assessment and Plan: * as noted * anemia studies with iron deficiency * on IGNACIA (Retacrit) * follow trend of H/H (8) Cardiomyopathy: Qualifiers: Cardiomyopathy type: ischemic Qualified Code(s): I25.5 - Ischemic cardiomyopathy Code(s): I42.9 - Cardiomyopathy, unspecified Status: Acute Assessment and Plan: * known history * however. recent echo with improved EF to 55% * follow volume status closely * Cardiology following (9) Ulcer of left heel: Code(s): L97.429 - Non-pressure chronic ulcer of left heel and midfoot with unspecified severity Status: Acute Assessment and Plan: * s/p intervention on last hospitalization * General Surgery following * no intervention needed at this time * local wound care Will continue to follow Subjective Date/time seen: 08/31/24 11:40 Interval history: Follow-up for chronic kidney disease. No apparent distress voiced at the time of my visit; she states that she just feels blah -- oral intake a bit better (since starting appetite stimulants) along with encouragement; remains in atrial fibrillation at this time; sodium remains elevated by AM labs with BUN still running in the 100ish range as well; making good urine output and volume status stable despite diuretic therapy being on hold; started on D5W IVFs given persistent hypernatremia. Exam Narrative: General: elderly but WD/WN female in NAD Heart: normal S1 and S2; no rub Lungs: coarse breath sounds; particularly at bases Abdomen: soft, nontender, nondistended, positive bowel sounds Extremities: no cyanosis or clubbing; trace - 1+ edema Skin: left foot dressings in place Objective Data Vital Signs Vital Signs: Vital Signs Temp Pulse Resp BP Pulse Ox O2 Del Method O2 Flow Rate 08/31/24 11:40 97.5 F L 73 20 100/49 L 100 08/31/24 09:45 81 08/31/24 09:00 94 Nasal Cannula 2 08/31/24 08:15 97.5 F L 82 20 110/45 L 92 08/31/24 06:00 68 08/31/24 04:00 97.6 F 64 20 109/45 L 99 08/31/24 03:37 68 24 H 100 Nasal Cannula 2 08/31/24 03:37 68 08/31/24 02:00 68 08/31/24 00:00 68 24 H 100 Nasal Cannula 2 08/31/24 00:00 68 08/30/24 22:00 70 08/31/24 00:00 97.5 F L 67 24 H 108/53 L 100 08/30/24 20:00 68 20 97 Nasal Cannula 2 08/30/24 20:00 68 08/30/24 20:00 98.1 F 70 20 124/46 L 97 08/30/24 18:25 70 99/71 L 08/30/24 18:47 70 99/71 L 08/30/24 18:00 92 08/30/24 16:00 104 H 08/30/24 16:00 98 Nasal Cannula 2 08/30/24 16:25 117 H 99/59 L 08/30/24 16:24 98.0 F 117 H 20 99/59 L 94 08/30/24 14:43 81 117/56 L 08/30/24 14:41 81 117/56 L 08/30/24 14:00 132 H Intake/Output Intake/Output: Intake & Output 08/28/24 08/29/24 08/30/24 08/31/24 23:59 23:59 23:59 23:59 Intake Total 522 1352.1 424.5 600 Output Total 2450 1050 1000 450 Balance -1928 302.1 -575.5 150 Meds/Results Medications: Active Medications Generic Name Dose Route Start Last Admin Trade Name Freq PRN Reason Stop Dose Admin Acetaminophen 650 mg 08/27/24 21:31 08/28/24 23:47 Acetaminophen 325 Mg Tablet PO 650 mg Q6H PRN Administration Mild Pain (1-3) or Fever Allopurinol 50 mg 08/26/24 09:00 08/30/24 08:15 Allopurinol 50 Mg Tablet PO 50 mg Q48H MADELINE Administration Amiodarone HCl 400 mg 08/31/24 08:00 08/31/24 09:45 Amiodarone Hcl 200 Mg Tablet PO 400 mg BIDWM MADELINE Administration Aspirin 325 mg 08/26/24 09:00 08/31/24 09:45 Aspirin 325 Mg Tablet PO 325 mg DAILY MADELINE Administration Collagenase 1 applic 08/26/24 09:00 08/30/24 08:15 Collagenase Oint 30 Gm Tube TOPICAL 1 applic QAM MADELINE Administration Dronabinol 2.5 mg 08/29/24 17:00 08/31/24 09:45 Dronabinol (*Crx) 2.5 Mg Capsule PO 2.5 mg BID MADELINE Administration Epoetin Crispin-epbx 10,000 units 08/29/24 09:00 08/31/24 10:13 Epoetin Crispin-Epbx 10,000 Units/Ml Vial SUB-Q 10,000 units TUTHSA@09 MADELINE Administration Guaifenesin 600 mg 08/27/24 10:00 08/31/24 09:45 Guaifenesin 12 Hr 600 Mg Tabcr PO 09/03/24 09:59 600 mg Q12HR MADELINE Administration Heparin Sodium (Porcine) 5,000 units 08/26/24 09:00 08/31/24 09:45 Heparin Sodium 5,000 Units/Ml Vial SUB-Q 5,000 units Q12HR MADELINE Administration Ceftriaxone Sodium 2 gm in 100 mls @ 200 mls/hr 08/26/24 14:00 08/31/24 09:44 Rocephin 2 Gm/Ns 100 Ml IVPB 200 mls/hr DAILY MADELINE Administration Doxycycline Hyclate 100 mg in 100 mls @ 100 mls/hr 08/29/24 17:00 08/31/24 05:44 Vibramycin 100 Mg/Ns 100 Ml IVPB 100 mls/hr Q12H MADELINE Administration Dextrose 1,000 mls @ 100 mls/hr 08/31/24 07:55 08/31/24 09:35 Dextrose 5% 1,000 Ml IV CONT 100 mls/hr .Q10H MADELINE Administration Potassium Chloride 40 meq/ 520 mls @ 130 mls/hr 08/31/24 09:15 08/31/24 09:34 Sodium Chloride IVPB 08/31/24 13:14 130 mls/hr ONCE ONE Administration Levothyroxine Sodium 75 mcg 08/26/24 06:30 08/31/24 05:44 Levothyroxine Sodium 75 Mcg Tablet PO 75 mcg DAILY@0630 MADELINE Administration Metronidazole 500 mg 08/26/24 22:00 08/31/24 05:44 Metronidazole 500 Mg Tablet PO 500 mg Q8HR MADELINE Administration Midodrine 10 mg 08/26/24 09:00 08/31/24 09:45 Midodrine Hcl 10 Mg Tablet PO 10 mg TID MADELINE Administration Umeclidinium [place] 1 puff 08/26/24 08:00 08/31/24 08:58 Umeclidinium [place] 62.5 Mcg Ellipta INHALATION 1 puff DAILYRT MADELINE Administration Radiology Results: ITS Impressions Foot X-Ray 08/25/24 18:30 IMPRESSION: Very prominent soft tissue ulcer at the posterior heel, with suggestion of calcaneal exposure Soft tissue swelling Prominent osteopenia; this may obscure fracture or bone destruction. If there is concern for osteomyelitis, consider three-phase radionuclide bone scan. Tibia/Fibula X-Ray 08/25/24 18:35 IMPRESSION: Osteopenia Soft tissue swelling Arterial calcifications Head CT 08/25/24 18:43 IMPRESSION: Cerebral atherosclerosis and chronic small vessel ischemic changes of the cerebral white matter Small chronic right frontal probable cerebrovascular accident No acute intracranial finding or hemorrhage Chest CT 08/29/24 11:08 IMPRESSION: 1. Groundglass opacities in right middle lobe and anterior segment right upper lobe, consistent with mild pulmonary edema versus atypical pneumonia. 2. Small pleural effusions. Labs Labs: Laboratory Tests 08/31/24 04:34 08/31/24 04:34 Calcium 9.7 Total Bilirubin 0.4 AST 19 ALT 12 Alkaline Phosphatase 89 Total Protein 6.0 L Albumin 2.9 L Microbiology 08/25/24 16:38 Blood Blood Culture - Final 08/25/24 16:42 Blood Blood Culture - Final
--- NOTE | 2024-08-31 12:45 | PM.IMPN ---
Progress Note: A&P Assessment and Plan (1) Sepsis: Qualifiers: Sepsis type: sepsis due to unspecified organism Sepsis acute organ dysfunction status: with acute organ dysfunction Severe sepsis acute organ dysfunction type: acute renal failure Acute renal failure type: unspecified Severe sepsis shock status: without septic shock Qualified Code(s): A41.9 - Sepsis, unspecified organism; R65.20 - Severe sepsis without septic shock; N17.9 - Acute kidney failure, unspecified Code(s): A41.9 - Sepsis, unspecified organism Status: Acute Assessment and Plan: The patient's hypotension could be strictly cardiac in nature versus hypovolemia but cannot rule out source of infection or sepsis. Patient received cefepime Flagyl and vancomycin in the ER to treat for possible infected foot wound. Will switch antibiotic to Ceftriaxone 2 gm IVPB daily, change Flagyl to oral, and stop Vancomycin. Patient was noted to have mild elevation in white count and does have some chronic wounds but they do not visually a appear to be acutely infected but given her condition this cannot completely be ruled out especially in the setting of acute increasing ESR and CRP. She is not febrile. Blood cultures no growth to date. Procalcitonin 2.3. BP remains stable WBC improved from 12.3>10.7>10.2>9.7 (2) Metabolic encephalopathy: Code(s): G93.41 - Metabolic encephalopathy Status: Acute Assessment and Plan: Likely due to uremia/azotemia with markedly elevated BUN above baseline. However cannot rule out some component of encephalopathy due to acute infection. resolved (3) Acute on chronic renal failure: Qualifiers: Acute renal failure type: unspecified Chronic kidney disease stage: stage 4 (severe) Qualified Code(s): N17.9 - Acute kidney failure, unspecified; N18.4 - Chronic kidney disease, stage 4 (severe) Code(s): N17.9 - Acute kidney failure, unspecified; N18.9 - Chronic kidney disease, unspecified Status: Acute Assessment and Plan: Most likely multifactorial. It is certainly component of hypovolemia decreased fluid intake given the patient's clinical appearance. Patient is also on diuretic therapy and has some prerenal component due to acute on chronic hypotension. Patient's BUN has increased markedly in this is less likely causing up component of her decreased oral intake and or confusion due to uremia. Will hold nephrotoxic medications including Entresto, Bumex and metolazone. BUN/CR 115/1.6 on am labs Consult Nephrology for further recommendations. Baseline Cr runs approximately 1.7-2.2 BUN 99, Cr 1.6 patient also appears to be fluid overloaded with pulm edema per chest imaging Nephrology following and noted patient does not need dialysis at this time (4) Hypokalemia: Code(s): E87.6 - Hypokalemia Status: Acute Assessment and Plan: resolved monitor and replace accordingly (5) Hypotension: Qualifiers: Hypotension type: hypotension due to hypovolemia Qualified Code(s): E86.1 - Hypovolemia Code(s): I95.9 - Hypotension, unspecified Status: Acute Assessment and Plan: The patient has some component of chronic hypotension with cardiology notes mentioning patient had prior asymptomatic hypotension with systolic blood pressures in the 90s. BP remains stable at 127/32 Midodrine 10 mg PO TID Encourage PO intake. Can continue Midodrine for now. continue holding Entresto, Bumex, Metolazone for now. Cardiology input appreciated (6) Cardiomyopathy: Qualifiers: Cardiomyopathy type: ischemic Qualified Code(s): I25.5 - Ischemic cardiomyopathy Code(s): I42.9 - Cardiomyopathy, unspecified Status: Acute Assessment and Plan: Patient's chest x-ray appears similar to prior. After receiving 30 mL/kilos fluid bolus patient's oxygen requirement did go up from her baseline 1 L up to 3 L. the patient's BNP is markedly elevated compared to prior values. Wondering if recent initiation of midodrine may have contributed to to an acute decompensation. The patient had recent echocardiogram earlier this month demonstrated EF that improved to 55%. With some right-sided ventricular enlargement and expected valvular abnormalities given the patient's history. Hold Entresto,Bumex, or metolazone without discussion with both Nephrology and Cardiology. cardiology following (7) Decubitus ulcer of sacral area: Qualifiers: Pressure injury stage: unspecified pressure injury stage Qualified Code(s): L89.159 - Pressure ulcer of sacral region, unspecified stage Code(s): L89.159 - Pressure ulcer of sacral region, unspecified stage Status: Acute Assessment and Plan: Wound Care consult. Antifungal barrier cream. Turn q 2. Surgery following in case intervention needs done. Chad 1 pack BID, encourage PO intake. (8) Ulcer of left heel: Code(s): L97.429 - Non-pressure chronic ulcer of left heel and midfoot with unspecified severity Status: Acute Assessment and Plan: Santyl to wound bed to promote healing. Waffle boots. Surgery following in case intervention needs done. Chad 1 pack BID, encourage PO intake. (9) Peripheral artery disease: Code(s): I73.9 - Peripheral vascular disease, unspecified Status: Acute Assessment and Plan: ABIs during her last hospitalization showed moderately decreased ABIs consistent with arterial occlusive disease. This can contribute to poor healing with her lower extremity ulcers. cardiology evaluated and noted most likely outpatient intervention (10) Elevated troponin: Code(s): R79.89 - Other specified abnormal findings of blood chemistry Status: Acute Assessment and Plan: Trop 0.617> 0.633>0.185 likely demand from sepsis trending down cardiology on board Plan Iron deficiency anemia r/o GI bleed hb 7.7, isat 9 Venofer 1000/1000 FOBT pending Gi eval noted, endoscopy on hold awaiting patient to be stable for procedure monitor h and h GI following Possible Pneumonia CT Chest showed possible Atypical pneumonia On Rocephin and Day 3 Doxycycline monitor FTT/protein energy malnutrition appetite and oral intake improving start Dronabinol continue protein supplements dietitian consulted Paroxysmal Afib with RVR Continue Amiodarone per cardiology Not on Anticoagulation at home due GI bleed issues monitor cards following Hypernatremia Na 153 start D5W and encourage oral intake repeat BMP at 2 pm adjust fluids accordingly DVT prophylaxis on Sq heparin Discussed care plan with and patient at bedside Subjective Date/time seen: 08/31/24 12:45 Interval history: Patient looking much better today however na 153 Review of Systems Review of Systems: All systems reviewed & are unremarkable except as noted in HPI and below ROS unobtainable: Yes unobtainable due to mental status Exam Narrative: AF HR 68 RR 20 SPO2 100 2L NC BP 127/32 General: female in no acute respiratory distress who is nontoxic appearing, lying semi recumbent in bed. HEENT: Normocephalic. Atraumatic. Extraocular movement intact. Sclera clear and anicteric. No facial asymmetry. Chest: Lungs are coarse to auscultation bilaterally. No wheezes or crackles. Remains on 2L NC. CV: Heart was regular rate and rhythm. S1-S2. No murmurs, gallops, or rubs. Abd: Abdomen was soft. Nontender. Nondistended. Positive bowel sounds. No organomegaly or masses. Ext: No clubbing, cyanosis, or edema. 2+ DP pulses bilaterally. Neuro: Patient is alert and oriented x4. Cranial nerves 2-12 are intact. Speech is clear. Const: General: comfortable and no acute distress Other: Acutely ill-appearing, obese, appears older than stated age HENMT: Other: Head is normocephalic atraumatic, lips are dry with peeling skin the, mucous membranes are dry, fair dentition but exam limited as the patient only minimally opens her mouth Eyes: Other: Pupils are equal and reactive, marked conjunctival pallor, no scleral icterus Neck: Other: No obvious JVD, large neck circumference, supple Resp: Effort & Inspection: normal respiratory effort Auscultation: clear to auscultation bilaterally Other: Mild tachypnea, accessory muscle use, decreased breath sounds bilaterally most notably at the bases Cardio: Rate: regular rate Rhythm: regular rhythm Other: paced 71 GI: Auscultation: normal bowel sounds Other: Obese, soft, nontender : Other: Melchor catheter in place with 250 mL of dark yellow urine Urinary Catheter: Urinary Catheter: patent and draining (yellow) Skin: General skin exam: wounds noted Wounds: wounds noted Other: surgical evaluation noted today Right lateral lower leg ulcer appears superficial but with 100% of the wound bed dark red/purple and black with mild localized pink discoloration of the skin around the border of the wound. No crepitus, no purulent drainage, and no odor. Unchanged from yesterday. Right heel with a purple deep tissue injury measuring 5 x 6 cm, nonblanchable, all of the overlying skin is intact. Stage IV left heel ulcer measuring 4.5 x 6 x 1 cm with more yellow and mendes slough in about 80% of the wound bed today. No purulent drainage, no crepitus, and no foul odor . Neuro: Speech: normal speech Other: Patient is alert oriented to person, place and year, she is confused as to time and thought the month was August already she is a poor historian regarding recent events and why she was brought to the hospital, speech is slow and clear but only answering in 1-2 word intervals, patient has 5/5 strength on the left display carver and 3/5 strength on the right, patient was unable to pull her feet away from noxious stimuli Extrem: General: pedal edema bilaterally 2+ Other: Patient has chronic wounds 1 of the posterior right lower calf with a slightly larger base than previous but base appears clean no evidence of surrounding erythema (please see nursing documentation for imaging), and black eschar on the left heel dry, no drainage, no surrounding erythema, 1+ pretibial edema bilateral Psych: Mental Status: mental status grossly normal Affect: normal affect Other: Affect flat Objective Data Vital Signs Vital Signs: Vital Signs - 24 hr 08/30/24 14:00 08/30/24 14:41 08/30/24 14:43 Temperature Pulse Rate 132 H 81 81 Respiratory Rate Blood Pressure 117/56 L 117/56 L Pulse Oximetry Oxygen Delivery Oxygen Flow Rate Fraction of Inspired Oxygen 08/30/24 16:24 08/30/24 16:25 08/30/24 16:00 Temperature 98.0 F Pulse Rate 117 H 117 H Respiratory Rate 20 Blood Pressure 99/59 L 99/59 L Pulse Oximetry 94 98 Oxygen Delivery Nasal Cannula Oxygen Flow Rate 2 Fraction of Inspired Oxygen 08/30/24 16:00 08/30/24 18:00 08/30/24 18:47 Temperature Pulse Rate 104 H 92 70 Respiratory Rate Blood Pressure 99/71 L Pulse Oximetry Oxygen Delivery Oxygen Flow Rate Fraction of Inspired Oxygen 08/30/24 18:25 08/30/24 20:00 08/30/24 20:00 Temperature 98.1 F Pulse Rate 70 70 68 Respiratory Rate 20 Blood Pressure 99/71 L 124/46 L Pulse Oximetry 97 Oxygen Delivery Oxygen Flow Rate Fraction of Inspired Oxygen 08/30/24 20:00 08/31/24 00:00 08/30/24 22:00 Temperature 97.5 F L Pulse Rate 68 67 70 Respiratory Rate 20 24 H Blood Pressure 108/53 L Pulse Oximetry 97 100 Oxygen Delivery Nasal Cannula Oxygen Flow Rate 2 Fraction of Inspired Oxygen 08/31/24 00:00 08/31/24 00:00 08/31/24 02:00 Temperature Pulse Rate 68 68 68 Respiratory Rate 24 H Blood Pressure Pulse Oximetry 100 Oxygen Delivery Nasal Cannula Oxygen Flow Rate 2 Fraction of Inspired Oxygen 08/31/24 03:37 08/31/24 03:37 08/31/24 04:00 Temperature 97.6 F Pulse Rate 68 68 64 Respiratory Rate 24 H 20 Blood Pressure 109/45 L Pulse Oximetry 100 99 Oxygen Delivery Nasal Cannula Oxygen Flow Rate 2 Fraction of Inspired Oxygen 08/31/24 06:00 08/31/24 08:15 08/31/24 09:00 Temperature 97.5 F L Pulse Rate 68 82 Respiratory Rate 20 Blood Pressure 110/45 L Pulse Oximetry 92 94 Oxygen Delivery Nasal Cannula Oxygen Flow Rate 2 Fraction of Inspired Oxygen 28 08/31/24 09:45 08/31/24 11:50 Temperature 97.5 F L Pulse Rate 81 73 Respiratory Rate 20 Blood Pressure 100/49 L Pulse Oximetry 100 Oxygen Delivery Oxygen Flow Rate Fraction of Inspired Oxygen Intake/Output Intake/Output: Intake & Output 08/28/24 08/29/24 08/30/24 08/31/24 23:59 23:59 23:59 23:59 Intake Total 522 1352.1 424.5 600 Output Total 2450 1050 1000 450 Balance -1928 302.1 -575.5 150 Meds/Results Medications: Active Medications Generic Name Dose Route Start Last Admin Trade Name Freq PRN Reason Stop Dose Admin Acetaminophen 650 mg 08/27/24 21:31 08/28/24 23:47 Acetaminophen 325 Mg Tablet PO 650 mg Q6H PRN Administration Mild Pain (1-3) or Fever Allopurinol 50 mg 08/26/24 09:00 08/30/24 08:15 Allopurinol 50 Mg Tablet PO 50 mg Q48H MADELINE Administration Amiodarone HCl 400 mg 08/31/24 08:00 08/31/24 09:45 Amiodarone Hcl 200 Mg Tablet PO 400 mg BIDWM MADELINE Administration Aspirin 325 mg 08/26/24 09:00 08/31/24 09:45 Aspirin 325 Mg Tablet PO 325 mg DAILY [facility] Administration Collagenase 1 applic 08/26/24 09:00 08/30/24 08:15 Collagenase Oint 30 Gm Tube TOPICAL 1 applic QAM [facility] Administration Dronabinol 2.5 mg 08/29/24 17:00 08/31/24 09:45 Dronabinol (*Crx) 2.5 Mg Capsule PO 2.5 mg BID [facility] Administration Epoetin Crispin-epbx 10,000 units 08/29/24 09:00 08/31/24 10:13 Epoetin Crispin-Epbx 10,000 Units/Ml Vial SUB-Q 10,000 units TUTHSA@09 MADELINE Administration Guaifenesin 600 mg 08/27/24 10:00 08/31/24 09:45 Guaifenesin 12 Hr 600 Mg Tabcr PO 09/03/24 09:59 600 mg Q12HR MADELINE Administration Heparin Sodium (Porcine) 5,000 units 08/26/24 09:00 08/31/24 09:45 Heparin Sodium 5,000 Units/Ml Vial SUB-Q 5,000 units Q12HR MADELINE Administration Ceftriaxone Sodium 2 gm in 100 mls @ 200 mls/hr 08/26/24 14:00 08/31/24 09:44 Rocephin 2 Gm/Ns 100 Ml IVPB 200 mls/hr DAILY MADELINE Administration Doxycycline Hyclate 100 mg in 100 mls @ 100 mls/hr 08/29/24 17:00 08/31/24 05:44 Vibramycin 100 Mg/Ns 100 Ml IVPB 100 mls/hr Q12H MADELINE Administration Dextrose 1,000 mls @ 100 mls/hr 08/31/24 07:55 08/31/24 09:35 Dextrose 5% 1,000 Ml IV CONT 100 mls/hr .Q10H MADELINE Administration Potassium Chloride 40 meq/ 520 mls @ 130 mls/hr 08/31/24 09:15 08/31/24 09:34 Sodium Chloride IVPB 08/31/24 13:14 130 mls/hr ONCE ONE Administration Levothyroxine Sodium 75 mcg 08/26/24 06:30 08/31/24 05:44 Levothyroxine Sodium 75 Mcg Tablet PO 75 mcg DAILY@0630 MADELINE Administration Metronidazole 500 mg 08/26/24 22:00 08/31/24 05:44 Metronidazole 500 Mg Tablet PO 500 mg Q8HR MADELINE Administration Midodrine 10 mg 08/26/24 09:00 08/31/24 09:45 Midodrine Hcl 10 Mg Tablet PO 10 mg TID MADELINE Administration Umeclidinium Pavo 1 puff 08/26/24 08:00 08/31/24 08:58 Umeclidinium Pav[place] 62.5 Mcg Ellipta INHALATION 1 puff DAILYRT MADELINE Administration Radiology Results: ITS Impressions Foot X-Ray 08/25/24 18:30 IMPRESSION: Very prominent soft tissue ulcer at the posterior heel, with suggestion of calcaneal exposure Soft tissue swelling Prominent osteopenia; this may obscure fracture or bone destruction. If there is concern for osteomyelitis, consider three-phase radionuclide bone scan. Tibia/Fibula X-Ray 08/25/24 18:35 IMPRESSION: Osteopenia Soft tissue swelling Arterial calcifications Head CT 08/25/24 18:43 IMPRESSION: Cerebral atherosclerosis and chronic small vessel ischemic changes of the cerebral white matter Small chronic right frontal probable cerebrovascular accident No acute intracranial finding or hemorrhage Chest CT 08/29/24 11:08 IMPRESSION: 1. Groundglass opacities in right middle lobe and anterior segment right upper lobe, consistent with mild pulmonary edema versus atypical pneumonia. 2. Small pleural effusions. Labs Labs: Laboratory Results - last 24 hr 08/30/24 08/31/24 14:38 04:34 WBC 13.6 H RBC 3.12 L Hgb 7.7 L Hct 27.2 L MCV 87.2 MCH 24.7 L MCHC 28.3 L RDW 20.5 H Plt Count 236 MPV 12.7 H Immature Gran % (Auto) 1.8 H Neut % (Auto) 86.0 H Lymph % (Auto) 7.0 L [place] % (Auto) 4.8 Eos % (Auto) 0.1 Baso % (Auto) 0.3 Lymph # (Auto) 0.95 [place] # (Auto) 0.7 H Eos # (Auto) 0.0 Baso # (Auto) 0.0 Abs Immat Gran (auto) 0.24 H Absolute Neuts (auto) 11.7 H Absolute Nucleated RBC 0.110 H Nucleated RBC % 0.8 H Platelet Estimate Adequate Hypochromasia 1+ Target Cells 1+ Ovalocytes 1+ Schistocytes None seen Sodium 151 H 153 H Potassium 3.5 3.2 L Chloride 107 109 H Carbon Dioxide > 40 H > 40 H Anion Gap BUN 99 H 101 H Creatinine 1.60 H 1.60 H Estim Creat Clear Calc 27 27 Estimated GFR 32 L 32 L Glucose 149 H 110 Calcium 9.7 9.7 Magnesium 1.7 Total Bilirubin 0.8 0.4 AST 17 19 ALT 14 12 Alkaline Phosphatase 96 89 Total Protein 7.0 6.0 L Albumin 3.1 L 2.9 L Quality VTE Prophylaxis VTE prophylaxis: pharmacologic ordered (Heparin 5000 units subQ q.12 hours)
[2024-08-31 14:49] LABS: Anion Gap 4 mmol/L (4-12); Blood Urea Nitrogen 103 mg/dL (7-17); Calcium 9.5 mg/dL (8.4-10.2); Carbon Dioxide 39 mmol/L (22-30); Chloride 108 mmol/L (98-107); Estimated CRCL calculation 31 ml/min; Estimated Glomerular Filt Rate 37; Glucose 134 mg/dL (65-110); Potassium 4.3 mmol/L (3.4-5.0); Sodium 151 mmol/L (137-145)
[2024-08-31] MEDS: DOXYCYCLINE IV 100 MG in DEXTROSE 5% 100 ML IVPB (18:18)
[2024-08-31] MEDS: DEXTROSE 5%/0.45% SOD CHL 1,000 ML 100 ML IV CONT (18:20)
[2024-08-31] MEDS: droNABinol (*CRX) 2.5 MG CAPSULE 10 MG PO (18:20)
[2024-08-31] MEDS: COLLAGENASE OINT 30 GM TUBE 1 APPLIC TOPICAL (18:36)
[2024-08-31 23:01] LABS: Anion Gap 1 mmol/L (4-12); Blood Urea Nitrogen 94 mg/dL (7-17); Calcium 9.1 mg/dL (8.4-10.2); Carbon Dioxide 38 mmol/L (22-30); Chloride 109 mmol/L (98-107); Estimated CRCL calculation 31 ml/min; Estimated Glomerular Filt Rate 37; Glucose 119 mg/dL (65-110); Potassium 3.8 mmol/L (3.4-5.0); Sodium 148 mmol/L (137-145)
[2024-09-01] VITALS (18 sets, daily range): BP systolic 101–120; BP diastolic 42–61; PULSE 51–88; RESP 16–20; TEMP 36.3–37.1; O2SAT 91–100
--- NOTE | 2024-09-01 01:47 | PC.NURSE ---
Daylight Savings Time For Daylight Savings Time Ending in the Fall - Clocks are moved back. For Daylight Savings Time Beginning in the Spring - Clocks are moved ahead. For [facility], the time of change occurs at 0200 hrs. Time is taken from the geophysical observer. This entry on the patient's chart recognizes the change in time reflected during documentation. Example: 2 entries for vital signs may be charted for 0200 hrs.
[2024-09-01 04:19] LABS: Basophils Percent Auto 0.2 % (0.2-1.2); Eosinophils Absolute Auto 0.1 K/mm3 (0-0.3); Hematocrit 27.8 % (37.0-47.0); Hemoglobin 7.7 g/dL (12.0-15.0); Immature Granulocyte Percent A 2.1 % (0-0.5); Lymphocytes Absolute Auto 0.86 K/mm3 (0.9-3.2); Lymphocytes Percent Auto 9.2 % (18.3-44.2); Mean Corpuscular HGB Conc 27.7 g/dl (32-36); Mean Corpuscular Hemoglobin 24.2 pg (26-34); Mean Corpuscular Volume 87.4 fl (80-100); Monocytes Absolute Auto 0.6 K/mm3 (0.1-0.6); Monocytes Percent Auto 6.1 % (2.6-8.5); Neutrophils Absolute Auto 7.6 K/mm3 (1.3-6.7); Neutrophils Percent Auto 81.4 % (45.5-73.1); Nucleated Red Blood Cells Perc 1.7 % (0.0-0.2); Platelet Count Result 234 k/mm3 (150-375); Red Blood Count 3.18 M/mm3 (4.2-5.4); Red Cell Distribution Width 20.5 % (11.5-14.5); White Blood Count 9.4 K/mm3 (4.5-10.0)
[2024-09-01] MEDS: DEXTROSE 5%/0.45% SOD CHL 1,000 ML 75 ML IV CONT ×2 (04:28→21:03)
[2024-09-01] MEDS: DOXYCYCLINE IV 100 MG in DEXTROSE 5% 100 ML IVPB ×2 (04:29→18:18)
[2024-09-01 04:39] LABS: Alanine Aminotransferase 12 U/L (6-35); Albumin Level 2.6 g/dL (3.5-5.1); Alkaline Phosphatase 84 U/L (38-126); Aspartate Amino Transferase 20 U/L (14-36); Bilirubin,Total 0.4 mg/dL (0.2-1.3); Blood Urea Nitrogen 88 mg/dL (7-17); Calcium 9.4 mg/dL (8.4-10.2); Carbon Dioxide > 40 mmol/L (22-30); Chloride 107 mmol/L (98-107); Estimated CRCL calculation 29 ml/min; Estimated Glomerular Filt Rate 34; Glucose 117 mg/dL (65-110); Magnesium 1.6 mg/dL (1.6-2.3); Potassium 3.7 mmol/L (3.4-5.0); Sodium 148 mmol/L (137-145)
[2024-09-01 04:43] LABS: Anisocytosis 1+; Ovalocytes 1+; Platelet Estimate Adequate (Adequate)
[2024-09-01 04:44] LABS: Hypochromasia 1+; Schistocytes None Seen
[2024-09-01] MEDS: metroNIDAZOLE 500 MG TABLET PO ×3 (05:18→21:04)
[2024-09-01] MEDS: LEVOTHYROXINE SODIUM 75 MCG TABLET PO (05:18)
--- NOTE | 2024-09-01 08:05 | P.PNCA_ITS ---
Progress Note: A&P Assessment and Plan (1) Atrial fibrillation with rapid ventricular response: Code(s): I48.91 - Unspecified atrial fibrillation Status: Acute Assessment and Plan: 74 year old female with CAD s/p CABG (BARR-LAD, SVG-RI), paroxysmal atrial fibrillation, heart failure with reduced LVEF s/p biventricular ICD, mitral regurgitation s/p bioprosthetic mitral valve replacement with a 31mm Gilbert b ioprosthesis, tricuspid valve repair, chronic kidney disease stage 4 who was admitted for sepsis Hypernatremia, FRANK on CKD: Nephrology consulted and following. Critical limb ischemia -has abnormal Doppler ultrasound of bilateral lower extremity wounds. -* plan for peripheral angiogram with Dr. ortega as an outpatient when sepsis and acute kidney injury improved Paroxysmal atrial fibrillation with RVR: -at home she takes 200 mg daily of amiodarone. Currently on 400 mg b.i.d.. Reduce amiodarone to 200 mg b.i.d.. -Not on anticoagulation at home due to issues with GI bleeding in the past and s/p left atrial appendage ligation. Chronic heart failure with reduced LVEF status post biventricular ICD, now recovered LVEF -Continue holding heart failure medications giving her midodrine requirements due to low blood pressure. -She appears euvolemic today. -to further clarify her volume status will obtain a chest x-ray today to assess for lung congestion. CAD s/p CABG (BARR-LAD, SVG-RI) -Continue aspirin Mitral regurgitation s/p bioprosthetic mitral valve replacement with a 31mm Gilbert bioprosthesis -Normal function valve on echocardiogram performed recently. -continue aspirin -antibiotic prophylaxis is needed prior to surgical interventions. (2) Acute kidney injury superimposed on CKD: Code(s): N17.9 - Acute kidney failure, unspecified; N18.9 - Chronic kidney disease, unspecified Status: Acute (3) Hypernatremia: Code(s): E87.0 - Hyperosmolality and hypernatremia Status: Acute Assessment and Plan: Sodium remains elevated (4) Critical limb ischemia of both lower extremities: Code(s): I70.223 - Atherosclerosis of [place] arteries of extremities with rest pain, bilateral legs Status: Acute (5) CAD (coronary artery disease): Qualifiers: Coronary Disease-Associated Artery/Lesion type: [place] artery [place] vs. transplanted heart: [place] heart Associated angina: without angina Qualified Code(s): I25.10 - Atherosclerotic heart disease of [place] coronary artery without angina pectoris Code(s): I25.10 - Atherosclerotic heart disease of [place] coronary artery without angina pectoris Status: Chronic (6) Cardiomyopathy: Qualifiers: Cardiomyopathy type: ischemic Qualified Code(s): I25.5 - Ischemic cardiomyopathy Code(s): I42.9 - Cardiomyopathy, unspecified Status: Acute (7) History of mitral valve replacement with bioprosthetic valve: Onset Date: 04/2021 Code(s): Z95.3 - Presence of xenogenic heart valve Status: Acute (8) H/O tricuspid valve annuloplasty: Code(s): Z98.890 - Other specified postprocedural states Status: Acute Subjective Date/time seen: 09/01/24 08:05 Interval history: 74 year old female with CAD s/p CABG (BARR-LAD, SVG-RI), paroxysmal atrial fibrillation, heart failure with reduced LVEF s/p biventricular ICD, mitral regurgitation s/p bioprosthetic mitral valve replacement with a 31mm Gilbert bioprosthesis, tricuspid valve repair, chronic kidney disease stage 4. Patient follows with Dr. Gupta in the office. Recently admitted to [facility] for septic shock. Patient admitted to [facility] on 08/25 for altered mental status, unable to get out of bed. She was noted to be hypotensive on admission. Had FRANK on CKD. Her CHF meds have been placed on hold given FRANK on CKD and hypotension. She has been started on Midodrine. 08/29 - She had episode atrial fibrillation rapid ventricular rate for which she was started on amiodarone drip. She appears to be in pain today and did not want to be bothered; however she denies any shortness of breath or chest pain. She does have lower extremity wounds bilaterally with abnormal Doppler studies 08/30: Has atrial fibrillation with RVR earlier today. She states she feels okay, but appears confused on examination. 09/01-currently has paced rhythm. Patient states that she misses her family. Her son lives with her. She states I do not know if I a.m. in [place] or [place] I Review of Systems Review of Systems: All systems reviewed & are unremarkable except as noted in HPI and below (HPI) Cardiovascular: Cardiovascular: Reports as per HPI Exam Const: General: comfortable Other: Chronically ill appearing female HENMT: Mouth: Yes moist mucous membranes and Yes dry mucous membranes Eyes: General: appearance normal, both eyes and all related structures Sclera: sclerae normal Neck: Neck: no JVD Resp: Effort & Inspection: normal respiratory effort Auscultation: clear to auscultation bilaterally Cardio: Rate: regular rate Rhythm: regular rhythm Heart sounds: no murmurs Skin: General skin exam: normal color Neuro: Other: Appears confused Extrem: General: edema Other: Wounds on both lower extremities Psych: Mental Status: mental status grossly normal Affect: normal affect Objective Data Vital Signs Vital Signs: Vital Signs - 24 hr 08/31/24 09:45 08/31/24 11:50 08/31/24 10:00 Temperature 36.4 C L Pulse Rate 81 73 78 Respiratory Rate 20 Blood Pressure 100/49 L Pulse Oximetry 100 Oxygen Delivery Oxygen Flow Rate Fraction of Inspired Oxygen 08/31/24 12:00 08/31/24 14:00 08/31/24 12:00 Temperature Pulse Rate 72 65 Respiratory Rate Blood Pressure Pulse Oximetry 100 Oxygen Delivery Nasal Cannula Oxygen Flow Rate 2 Fraction of Inspired Oxygen 08/31/24 15:36 08/31/24 16:00 08/31/24 18:18 Temperature 36.3 C L Pulse Rate 84 59 L Respiratory Rate 20 Blood Pressure 104/49 L Pulse Oximetry 100 100 Oxygen Delivery Nasal Cannula Oxygen Flow Rate 1 Fraction of Inspired Oxygen 08/31/24 16:00 08/31/24 18:00 08/31/24 20:00 Temperature 36.3 C L Pulse Rate 57 L 74 56 L Respiratory Rate 20 Blood Pressure 115/53 L Pulse Oximetry 99 Oxygen Delivery Oxygen Flow Rate Fraction of Inspired Oxygen 08/31/24 20:00 08/31/24 20:00 08/31/24 22:00 Temperature Pulse Rate 57 L 57 L 55 L Respiratory Rate 20 Blood Pressure Pulse Oximetry 99 Oxygen Delivery Nasal Cannula Oxygen Flow Rate 2 Fraction of Inspired Oxygen 28 09/01/24 00:00 09/01/24 00:00 09/01/24 00:00 Temperature 36.3 C L Pulse Rate 58 L 57 L 57 L Respiratory Rate 16 16 Blood Pressure 107/45 L Pulse Oximetry 100 100 Oxygen Delivery Nasal Cannula Oxygen Flow Rate 2 Fraction of Inspired Oxygen 09/01/24 01:53 DENTAL RECEPTIONIST 09/01/24 04:00 09/01/24 04:00 Temperature Pulse Rate 64 58 L 58 L Respiratory Rate 16 Blood Pressure Pulse Oximetry 100 Oxygen Delivery Nasal Cannula Oxygen Flow Rate 2 Fraction of Inspired Oxygen 09/01/24 04:00 09/01/24 05:35 Temperature 36.4 C L Pulse Rate 62 64 Respiratory Rate 18 Blood Pressure 111/51 L Pulse Oximetry 100 Oxygen Delivery Oxygen Flow Rate Fraction of Inspired Oxygen Intake/Output Intake/Output: Intake & Output 08/29/24 08/30/24 08/31/24 09/01/24 23:59 23:59 23:59 22:59 Intake Total 1352.1 424.5 920 1100.0 Output Total 1050 1000 450 500 Balance 302.1 -575.5 470 600.0 Meds/Results Medications: Active Medications Generic Name Dose Route Start Last Admin Trade Name Freq PRN Reason Stop Dose Admin Acetaminophen 650 mg 08/27/24 21:31 08/28/24 23:47 Acetaminophen 325 Mg Tablet PO 650 mg Q6H PRN Administration Mild Pain (1-3) or Fever Allopurinol 50 mg 08/26/24 09:00 08/30/24 08:15 Allopurinol 50 Mg Tablet PO 50 mg Q48H [facility] Administration Amiodarone HCl 400 mg 08/31/24 08:00 08/31/24 18:18 Amiodarone Hcl 200 Mg Tablet PO 400 mg BIDWM MADELINE Administration Aspirin 325 mg 08/26/24 09:00 08/31/24 09:45 Aspirin 325 Mg Tablet PO 325 mg DAILY [facility] Administration Collagenase 1 applic 08/26/24 09:00 08/31/24 18:36 Collagenase Oint 30 Gm Tube TOPICAL 1 applic QAM [facility] Administration Dronabinol 10 mg 08/31/24 17:10 08/31/24 18:20 Dronabinol (*Crx) 2.5 Mg Capsule PO 10 mg BID [facility] Administration Epoetin Crispin-epbx 10,000 units 08/29/24 09:00 08/31/24 10:13 Epoetin Crispin-Epbx 10,000 Units/Ml Vial SUB-Q 10,000 units TUTHSA@09 [facility] Administration Guaifenesin 600 mg 08/27/24 10:00 08/31/24 20:52 Guaifenesin 12 Hr 600 Mg Tabcr PO 09/03/24 09:59 600 mg Q12HR MADELINE Administration Heparin Sodium (Porcine) 5,000 units 08/26/24 09:00 08/31/24 20:52 Heparin Sodium 5,000 Units/Ml Vial SUB-Q 5,000 units Q12HR [facility]ADELINE Administration Ceftriaxone Sodium 2 gm/ 100 mls @ 200 mls/hr 09/01/24 09:00 Dextrose IVPB DAILY MADELINE Doxycycline Hyclate 100 mg/ 100 mls @ 100 mls/hr 08/31/24 17:00 09/01/24 05:30 Dextrose IVPB Infused Q12H MADELINE Infusion Dextrose/Sodium Chloride 1,000 mls @ 75 mls/hr 08/31/24 17:15 09/01/24 04:28 Dextrose 5% Sodium Chloride 0.45% IV CONT 75 mls/hr .[id number] [facility]ADELINE Administration Levothyroxine Sodium 75 mcg 08/26/24 06:30 09/01/24 05:18 Levothyroxine Sodium 75 Mcg Tablet PO 75 mcg DAILY@0630 MADELINE Administration Metronidazole 500 mg 08/26/24 22:00 09/01/24 05:18 Metronidazole 500 Mg Tablet PO 500 mg Q8HR [facility]ADELINE Administration Midodrine 10 mg 08/26/24 09:00 08/31/24 18:20 Midodrine Hcl 10 Mg Tablet PO 10 mg TID MADELINE Administration Miscellaneous Information 1 each 09/01/24 09:00 Mix Ivs In D5w If Possible XX 10/01/24 08:59 DAILY MADELINE Umeclidinium [place] 1 puff 08/26/24 08:00 08/31/24 08:58 Umeclidinium [place] 62.5 Mcg Ellipta INHALATION 1 puff DAILYRT MADELINE Administration Radiology Results: ITS Impressions Foot X-Ray 08/25/24 18:30 IMPRESSION: Very prominent soft tissue ulcer at the posterior heel, with suggestion of calcaneal exposure Soft tissue swelling Prominent osteopenia; this may obscure fracture or bone destruction. If there is concern for osteomyelitis, consider three-phase radionuclide bone scan. Tibia/Fibula X-Ray 08/25/24 18:35 IMPRESSION: Osteopenia Soft tissue swelling Arterial calcifications Head CT 08/25/24 18:43 IMPRESSION: Cerebral atherosclerosis and chronic small vessel ischemic changes of the cerebral white matter Small chronic right frontal probable cerebrovascular accident No acute intracranial finding or hemorrhage Chest CT 08/29/24 11:08 IMPRESSION: 1. Groundglass opacities in right middle lobe and anterior segment right upper lobe, consistent with mild pulmonary edema versus atypical pneumonia. 2. Small pleural effusions. Labs Labs: Laboratory Results - last 24 hr 08/31/24 08/31/24 09/01/24 14:27 22:25 04:13 WBC 9.4 RBC 3.18 L Hgb 7.7 L Hct 27.8 L MCV 87.4 MCH 24.2 L MCHC 27.7 L RDW 20.5 H Plt Count 234 MPV 12.0 H Immature Gran % (Auto) 2.1 H Neut % (Auto) 81.4 H Lymph % (Auto) 9.2 L [place] % (Auto) 6.1 Eos % (Auto) 1.0 Baso % (Auto) 0.2 Lymph # (Auto) 0.86 L [place] # (Auto) 0.6 Eos # (Auto) 0.1 Baso # (Auto) 0.0 Abs Immat Gran (auto) 0.20 H Absolute Neuts (auto) 7.6 H Absolute Nucleated RBC 0.160 H Nucleated RBC % 1.7 H Platelet Estimate Adequate Hypochromasia 1+ Anisocytosis 1+ Ovalocytes 1+ Schistocytes None seen Sodium 151 H 148 H 148 H Potassium 4.3 3.8 3.7 Chloride 108 H 109 H 107 Carbon Dioxide 39 H 38 H > 40 H Anion Gap 4 1 L BUN 103 H 94 H 88 H Creatinine 1.40 H 1.40 H 1.50 H Estim Creat Clear Calc 31 31 29 Estimated GFR 37 L 37 L 34 L Glucose 134 H 119 H 117 H Calcium 9.5 9.1 9.4 Magnesium 1.6 Total Bilirubin 0.4 AST 20 ALT 12 Alkaline Phosphatase 84 Total Protein 6.0 L Albumin 2.6 L
[2024-09-01] MEDS: UMECLIDINIUM BROMIDE 62.5 MCG ELLIPTA 1 PUFF INHALATION (08:12)
[2024-09-01] MEDS: HEPARIN SODIUM 5,000 UNITS/ML VIAL 5000 UNITS SUB-Q ×2 (08:43→23:12)
[2024-09-01] MEDS: ASPIRIN 325 MG TABLET PO (08:44)
[2024-09-01] MEDS: droNABinol (*CRX) 2.5 MG CAPSULE 10 MG PO ×2 (08:44→18:17)
[2024-09-01] MEDS: MIDODRINE HCL 10 MG TABLET PO ×3 (08:44→18:18)
[2024-09-01] MEDS: AMIODARONE HCL 200 MG TABLET PO ×2 (08:44→18:18)
[2024-09-01] MEDS: allopurinoL 50 MG TABLET PO (08:44)
[2024-09-01] MEDS: guaiFENesin 12 HR 600 MG TABCR PO ×2 (08:45→21:04)
--- NOTE | 2024-09-01 10:37 | P.PNNP_ITS ---
Progress Note: A&P Assessment and Plan (1) Chronic kidney disease, stage 4 (severe): Code(s): N18.4 - Chronic kidney disease, stage 4 (severe) Status: Chronic Assessment and Plan: * baseline creatinine runs ~ 1.7 - 2.2mg/dl * at baseline currently if not better (although was elevated to 2.6mg/dl on admission) * however, her BUN was quite elevated above her baseline...(see #2) * lower creatinine also likely a manifestation of bed bound status/immobilization as well holding diuretics/cardiac medications * based on outpatient evaluation, thought to be secondary to previous HTN and chronic prerenal azotemia from her CHF/cardiomyopathy with ongoing need for diuretic therapy (2) Azotemia: Code(s): R79.89 - Other specified abnormal findings of blood chemistry Status: Acute Assessment and Plan: * slow improvement * BUN was quite elevated as noted on admission * suspect multifactorial: * previous steroid use on last hospitalization * use of doxycyline (tetracycline antibiotics have been known to do this) * prerenal factors (volume depletion/diminished oral intake) * ongoing diuretic therapy * inflammation (new infection?) * r/o GI blood loss - hemoccult positive * holding diuretics/Entresto for now * interestingly, BUN did improve with IVF boluses on admission * suspect a possible contributing component to confusion * if this fails to improve with conservative therapy, dialysis is a consideration... * however, I worry that dialysis may push her to ESRD status * furthermore, per my discussion with her , he is not sure she would want to do dialysis * on gentle IVFs * is this a situation where she is intravascularly dry (due to diminished oral intake) despite outward signs of volume overload? * her previous rising/elevated sodium would support this * follow trend of repeat labs (3) Hypernatremia: Code(s): E87.0 - Hyperosmolality and hypernatremia Status: Acute Assessment and Plan: * this would suggest she is not drinking enough water * s/p D5W IVFs and currently on D5 1/2NS * try to encourage more free water intake * on appetite stimulants * follow trend for now (4) Hypotension: Qualifiers: Hypotension type: hypotension due to hypovolemia Qualified Code(s): E8 6.1 - Hypovolemia Code(s): I95.9 - Hypotension, unspecified Status: Acute Assessment and Plan: * has a chronic component at baseline * started on midodrine on last hospitalization * midodrine was on hold on re-admission but has been restarted * follow trend of hemodynamics (5) Sepsis: Qualifiers: Sepsis type: sepsis due to unspecified organism Sepsis acute organ dysfunction status: with acute organ dysfunction Severe sepsis acute organ dysfunction type: acute renal failure Acute renal failure type: unspecified Severe sepsis shock status: without septic shock Qualified Code(s): A41.9 - Sepsis, unspecified organism; R65.20 - Severe sepsis without septic shock; N17.9 - Acute kidney failure, unspecified Code(s): A41.9 - Sepsis, unspecified organism Status: Acute Assessment and Plan: * concern noted by low BP, elevated inflammatory markers, and elevated WBC * known LE and sacral wounds present * on empiric antibiotics * follow hemodynamics (6) Metabolic encephalopathy: Code(s): G93.41 - Metabolic encephalopathy Status: Acute Assessment and Plan: * due to uremia/azotemia +/- infection (?) * seems better now (but continues to fluctuate) * CT of head negative for any acute findings * follow mentation (7) Anemia: Code(s): D64.9 - Anemia, unspecified Status: Acute Assessment and Plan: * as noted * anemia studies with iron deficiency * on IGNACIA (Retacrit) * follow trend of H/H (8) Cardiomyopathy: Qualifiers: Cardiomyopathy type: ischemic Qualified Code(s): I25.5 - Ischemic cardiomyopathy Code(s): I42.9 - Cardiomyopathy, unspecified Status: Acute Assessment and Plan: * known history * however. recent echo with improved EF to 55% * follow volume status closely * Cardiology following (9) Ulcer of left heel: Code(s): L97.429 - Non-pressure chronic ulcer of left heel and midfoot with unspecified severity Status: Acute Assessment and Plan: * s/p intervention on last hospitalization * General Surgery following * no intervention needed at this time * local wound care Will continue to follow Subjective Date/time seen: 09/01/24 10:37 Interval history: Follow-up for chronic kidney disease. No acute complaints voiced at the time of my visit; sodium doing better with IVFs (was on D5W but now transitioned to D5 1/NS); still with intermittent conf usion at times; no apparent distress noted when seen; BUN + creatinine stable if not better by trend of labs. Exam Narrative: General: elderly but WD/WN female in NAD Heart: normal S1 and S2; no rub Lungs: coarse breath sounds; particularly at bases Abdomen: soft, nontender, nondistended, positive bowel sounds Extremities: no cyanosis or clubbing; trace - 1+ edema Skin: left foot dressings noted Objective Data Vital Signs Vital Signs: Vital Signs Temp Pulse Resp BP Pulse Ox O2 Del Method O2 Flow Rate 09/01/24 08:44 62 09/01/24 08:19 97.5 F L 59 L 18 110/42 L 100 09/01/24 05:35 64 09/01/24 04:00 97.5 F L 62 18 111/51 L 100 09/01/24 04:00 58 L 16 100 Nasal Cannula 2 09/01/24 04:00 58 L 09/01/24 01:53 POWER BENDER OPERATOR 64 09/01/24 00:00 57 L 16 100 Nasal Cannula 2 09/01/24 00:00 57 L 09/01/24 00:00 97.4 F L 58 L 16 107/45 L 100 08/31/24 22:00 55 L 08/31/24 20:00 57 L 20 99 Nasal Cannula 2 08/31/24 20:00 57 L 08/31/24 20:00 97.3 F L 56 L 20 115/53 L 99 08/31/24 18:00 74 08/31/24 16:00 57 L 08/31/24 18:18 59 L 08/31/24 16:00 100 Nasal Cannula 1 08/31/24 15:36 97.4 F L 84 20 104/49 L 100 08/31/24 14:00 65 Intake/Output Intake/Output: Intake & Output 08/29/24 08/30/24 08/31/24 09/01/24 23:59 23:59 23:59 22:59 Intake Total 1352.1 424.5 920 1280.0 Output Total 1050 1000 450 500 Balance 302.1 -575.5 470 780.0 Meds/Results Medications: Active Medications Generic Name Dose Route Start Last Admin Trade Name Freq PRN Reason Stop Dose Admin Acetaminophen 650 mg 08/27/24 21:31 08/28/24 23:47 Acetaminophen 325 Mg Tablet PO 650 mg Q6H PRN Administration Mild Pain (1-3) or Fever Allopurinol 50 mg 08/26/24 09:00 09/01/24 08:44 Allopurinol 50 Mg Tablet PO 50 mg Q48H [facility]ADELINE Administration Amiodarone HCl 200 mg 09/01/24 09:00 09/01/24 08:44 Amiodarone Hcl 200 Mg Tablet PO 200 mg BID [facility]ADELINE Administration Aspirin 325 mg 08/26/24 09:00 09/01/24 08:44 Aspirin 325 Mg Tablet PO 325 mg DAILY [facility]ADELINE Administration Collagenase 1 applic 08/26/24 09:00 08/31/24 18:36 Collagenase Oint 30 Gm Tube TOPICAL 1 applic QAM [facility]ADELINE Administration Dronabinol 10 mg 08/31/24 17:10 09/01/24 08:44 Dronabinol (*Crx) 2.5 Mg Capsule PO 10 mg BID [facility]ADELINE Administration Epoetin Crispin-epbx 10,000 units 08/29/24 09:00 08/31/24 10:13 Epoetin Crispin-Epbx 10,000 Units/Ml Vial SUB-Q 10,000 units TUTHSA@09 [facility]AD[facility]INE Administration Guaifenesin 600 mg 08/27/24 10:00 09/01/24 08:45 Guaifenesin 12 Hr 600 Mg Tabcr PO 09/03/24 09:59 600 mg Q12HR [facility]ADELINE Administration Heparin Sodium (Porcine) 5,000 units 08/26/24 09:00 09/01/24 08:43 Heparin Sodium 5,000 Units/Ml Vial SUB-Q 5,000 units Q12HR [facility]ADELINE Administration Ceftriaxone Sodium 2 gm/ 100 mls @ 200 mls/hr 09/01/24 09:00 09/01/24 08:45 Dextrose IVPB 200 mls/hr DAILY MADELINE Administration Doxycycline Hyclate 100 mg/ 100 mls @ 100 mls/hr 08/31/24 17:00 09/01/24 05:30 Dextrose IVPB Infused Q12H [facility]ADELINE Infusion Dextrose/Sodium Chloride 1,000 mls @ 75 mls/hr 08/31/24 17:15 09/01/24 04:28 Dextrose 5% Sodium Chloride 0.45% IV CONT 75 mls/hr .[id number] MADELINE Administration Levothyroxine Sodium 75 mcg 08/26/24 06:30 09/01/24 05:18 Levothyroxine Sodium 75 Mcg Tablet PO 75 mcg DAILY@0630 MADELINE Administration Metronidazole 500 mg 08/26/24 22:00 09/01/24 05:18 Metronidazole 500 Mg Tablet PO 500 mg Q8HR [facility]AD[facility]INE Administration Midodrine 10 mg 08/26/24 09:00 09/01/24 08:44 Midodrine Hcl 10 Mg Tablet PO 10 mg TID MADELINE Administration Miscellaneous Information 1 each 09/01/24 09:00 Mix Ivs In D5w If Possible XX 10/01/24 08:59 DAILY MADELINE Umeclidinium [place] 1 puff 08/26/24 08:00 09/01/24 08:12 Umeclidinium [place] 62.5 Mcg Ellipta INHALATION 1 puff DAILYRT MADELINE Administration Radiology Results: ITS Impressions Foot X-Ray 08/25/24 18:30 IMPRESSION: Very prominent soft tissue ulcer at the posterior heel, with suggestion of calcaneal exposure Soft tissue swelling Prominent osteopenia; this may obscure fracture or bone destruction. If there is concern for osteomyelitis, consider three-phase radionuclide bone scan. Tibia/Fibula X-Ray 08/25/24 18:35 IMPRESSION: Osteopenia Soft tissue swelling Arterial calcifications Head CT 08/25/24 18:43 IMPRESSION: Cerebral atherosclerosis and chronic small vessel ischemic changes of the cerebral white matter Small chronic right frontal probable cerebrovascular accident No acute intracranial finding or hemorrhage Chest CT 08/29/24 11:08 IMPRESSION: 1. Groundglass opacities in right middle lobe and anterior segment right upper lobe, consistent with mild pulmonary edema versus atypical pneumonia. 2. Small pleural effusions. Labs Labs: Laboratory Tests 09/01/24 04:13 09/01/24 04:13 Calcium 9.4 Magnesium 1.6 Total Bilirubin 0.4 AST 20 ALT 12 Alkaline Phosphatase 84 Total Protein 6.0 L Albumin 2.6 L Microbiology 08/25/24 16:38 Blood Blood Culture - Final 08/25/24 16:42 Blood Blood Culture - Final
--- NOTE | 2024-09-01 15:11 | P.PNIM_ITS ---
Progress Note: A&P Assessment and Plan (1) Sepsis: Qualifiers: Sepsis type: sepsis due to unspecified organism Sepsis acute organ dysfunction status: with acute organ dysfunction Severe sepsis acute organ dysfunction type: acute renal failure Acute renal failure type: unspecified Severe sepsis shock status: without septic shock Qualified Code(s): A41.9 - Sepsis, unspecified organism; R65.20 - Severe sepsis without septic shock; N17.9 - Acute kidney failure, unspecified Code(s): A41.9 - Sepsis, unspecified organism Status: Acute Assessment and Plan: The patient's hypotension could be strictly cardiac in nature versus hypovolemia but cannot rule out source of infection or sepsis. * Patient received cefepime Flagyl and vancomycin in the ER to treat for possible infected foot wound. Will switch antibiotic to Ceftriaxone 2 gm IVPB daily, change Flagyl to oral, and stop Vancomycin. * Patient was noted to have mild elevation in white count and does have some chronic wounds but they do not visually a appear to be acutely infected but given her condition this cannot completely be ruled out especially in the setting of acute increasing ESR and CRP. * She is not febrile. Blood cultures no growth to date. Procalcitonin 2.3. * BP remains stable * WBC improved from 12.3>10.7>10.2>9.7 (2) Metabolic encephalopathy: Code(s): G93.41 - Metabolic encephalopathy Status: Acute Assessment and Plan: * Likely due to uremia/azotemia with markedly elevated BUN above baseline. However cannot rule out some component of encephalopathy due to acute infection. resolved (3) Acute on chronic renal failure: Qualifiers: Acute renal failure type: unspecified Chronic kidney disease stage: stage 4 (severe) Qualified Code(s): N17.9 - Acute kidney failure, unspecified; N18.4 - Chronic kidney disease, stage 4 (severe) Code(s): N17.9 - Acute kidney failure, unspecified; N18.9 - Chronic kidney disease, unspecified Status: Acute Assessment and Plan: Most likely multifactorial. It is certainly component of hypovolemia decreased fluid intake given the patient's clinical appearance. Patient is also on diuretic therapy and has some prerenal component due to acute on chronic hypotension. * Patient's BUN has increased markedly in this is less likely causing up component of her decreased oral intake and or confusion due to uremia. Will hold nephrotoxic medications including Entresto, Bumex and metolazone. * BUN/CR 115/1.6 on am labs * Consult Nephrology for further recommendations. Baseline Cr runs approximately 1.7-2.2 BUN 88, Cr 1.5 patient also appears to be fluid overloaded with pulm edema per chest imaging Nephrology following and noted patient does not need dialysis at this time (4) Hypokalemia: Code(s): E87.6 - Hypokalemia Status: Acute Assessment and Plan: resolved monitor and replace accordingly (5) Hypotension: Qualifiers: Hypotension type: hypotension due to hypovolemia Qualified Code(s): E86.1 - Hypovolemia Code(s): I95.9 - Hypotension, unspecified Status: Acute Assessment and Plan: The patient has some component of chronic hypotension with cardiology notes mentioning patient had prior asymptomatic hypotension with systolic blood pressures in the 90s. * BP remains stable at 127/32 * Midodrine 10 mg PO TID * Encourage PO intake. Can continue Midodrine for now. continue holding Entresto, Bumex, Metolazone for now. Cardiology input appreciated (6) Cardiomyopathy: Qualifiers: Cardiomyopathy type: ischemic Qualified Code(s): I25.5 - Ischemic cardiomyopathy Code(s): I42.9 - Cardiomyopathy, unspecified Status: Acute Assessment and Plan: * Patient's chest x-ray appears similar to prior. * After receiving 30 mL/kilos fluid bolus patient's oxygen requirement did go up from her baseline 1 L up to 3 L. the patient's BNP is markedly elevated compared to prior values. Wondering if recent initiation of midodrine may have contributed to to an acute decompensation. * The patient had recent echocardiogram earlier this month demonstrated EF that improved to 55%. With some right-sided ventricular enlargement and expected valvular abnormalities given the patient's history. * Hold Entresto,Bumex, or metolazone without discussion with both Nephrology and Cardiology. cardiology following (7) Decubitus ulcer of sacral area: Qualifiers: Pressure injury stage: unspecified pressure injury stage Qualified Code(s): L89.159 - Pressure ulcer of sacral region, unspecified stage Code(s): L89.159 - Pressure ulcer of sacral region, unspecified stage Status: Acute Assessment and Plan: * Wound Care consult. * Antifungal barrier cream. * Turn q 2. * Surgery following in case intervention needs done. * Chad 1 pack BID, encourage PO intake. (8) Ulcer of left heel: Code(s): L97.429 - Non-pressure chronic ulcer of left heel and midfoot with unspecified severity Status: Acute Assessment and Plan: * Santyl to wound bed to promote healing. * Waffle boots. * Surgery following in case intervention needs done. * Chad 1 pack BID, encourage PO intake. (9) Peripheral artery disease: Code(s): I73.9 - Peripheral vascular disease, unspecified Status: Acute Assessment and Plan: ABIs during her last hospitalization showed moderately decreased ABIs consistent with arterial occlusive disease. This can contribute to poor healing with her lower extremity ulcers. cardiology evaluated and noted most likely outpatient intervention (10) Elevated troponin: Code(s): R79.89 - Other specified abnormal findings of blood chemistry Status: Acute Assessment and Plan: * Trop 0.617> 0.633>0.185 likely demand from sepsis trending down cardiology on board Plan Iron deficiency anemia r/o GI bleed hb 7.7, isat 9 Venofer 1000/1000 FOBT pending Gi eval noted, endoscopy on hold awaiting patient to be stable for procedure monitor h and h GI following Possible Pneumonia CT Chest showed possible Atypical pneumonia On Rocephin and Day 4 Doxycycline monitor FTT/protein energy malnutrition appetite and oral intake improving start Dronabinol continue protein supplements dietitian consulted Paroxysmal Afib with RVR Continue Amiodarone per cardiology Not on Anticoagulation at home due GI bleed issues monitor cards following Hypernatremia Na 148 start D5W and encourage oral intake repeat BMP at 2 pm adjust fluids accordingly DVT prophylaxis on Sq heparin Discussed care plan with and patient at bedside Subjective Date/time seen: 09/01/24 15:11 Interval history: Comfortable at bedside Review of Systems Review of Systems: All systems reviewed & are unremarkable except as noted in HPI and below ROS unobtainable: Yes unobtainable due to mental status Exam Narrative: General: female in no acute respiratory distress who is nontoxic appearing, lying semi recumbent in bed. HEENT: Normocephalic. Atraumatic. Extraocular movement intact. Sclera clear and anicteric. No facial asymmetry. Chest: Lungs are coarse to auscultation bilaterally. No wheezes or crackles. Remains on 2L NC. CV: Heart was regular rate and rhythm. S1-S2. No murmurs, gallops, or rubs. Abd: Abdomen was soft. Nontender. Nondistended. Positive bowel sounds. No organomegaly or masses. Ext: No clubbing, cyanosis, or edema. 2+ DP pulses bilaterally. Neuro: Patient is alert and oriented x4. Cranial nerves 2-12 are intact. Speech is clear. Const: General: comfortable and no acute distress Other: Acutely ill-appearing, obese, appears older than stated age HENMT: Other: Head is normocephalic atraumatic, lips are dry with peeling skin the, mucous membranes are dry, fair dentition but exam limited as the patient only minimally opens her mouth Eyes: Other: Pupils are equal and reactive, marked conjunctival pallor, no scleral icterus Neck: Other: No obvious JVD, large neck circumference, supple Resp: Effort & Inspection: normal respiratory effort Auscultation: clear to auscultation bilaterally Other: Mild tachypnea, accessory muscle use, decreased breath sounds bilaterally most notably at the bases Cardio: Rate: regular rate Rhythm: regular rhythm Other: paced 71 GI: Auscultation: normal bowel sounds Other: Obese, soft, nontender : Other: Melchor catheter in place with 250 mL of dark yellow urine Urinary Catheter: Urinary Catheter: patent and draining (yellow) Skin: General skin exam: wounds noted Wounds: wounds noted Other: surgical evaluation noted today Right lateral lower leg ulcer appears superfic ial but with 100% of the wound bed dark red/purple and black with mild localized pink discoloration of the skin around the border of the wound. No crepitus, no purulent drainage, and no odor. Unchanged from yesterday. Right heel with a purple deep tissue injury measuring 5 x 6 cm, nonblanchable, all of the overlying skin is intact. Stage IV left heel ulcer measuring 4.5 x 6 x 1 cm with more yellow and mendes slough in about 80% of the wound bed today. No purulent drainage, no crepitus, and no foul odor . Neuro: Speech: normal speech Extrem: General: pedal edema bilaterally 2+ Psych: Mental Status: mental status grossly normal Affect: normal affect Other: Affect flat Objective Data Vital Signs Vital Signs: Vital Signs - 24 hr 08/31/24 18:18 08/31/24 18:00 08/31/24 20:00 Temperature 97.3 F L Pulse Rate 59 L 74 56 L Respiratory Rate 20 Blood Pressure 115/53 L Pulse Oximetry 99 Oxygen Delivery Oxygen Flow Rate Fraction of Inspired Oxygen 08/31/24 20:00 08/31/24 20:00 08/31/24 22:00 Temperature Pulse Rate 57 L 57 L 55 L Respiratory Rate 20 Blood Pressure Pulse Oximetry 99 Oxygen Delivery Nasal Cannula Oxygen Flow Rate 2 Fraction of Inspired Oxygen 28 09/01/24 00:00 09/01/24 00:00 09/01/24 00:00 Temperature 97.4 F L Pulse Rate 58 L 57 L 57 L Respiratory Rate 16 16 Blood Pressure 107/45 L Pulse Oximetry 100 100 Oxygen Delivery Nasal Cannula Oxygen Flow Rate 2 Fraction of Inspired Oxygen 09/01/24 01:53 [employer] 09/01/24 04:00 09/01/24 04:00 Temperature Pulse Rate 64 58 L 58 L Respiratory Rate 16 Blood Pressure Pulse Oximetry 100 Oxygen Delivery Nasal Cannula Oxygen Flow Rate 2 Fraction of Inspired Oxygen 09/01/24 04:00 09/01/24 05:35 09/01/24 08:19 Temperature 97.5 F L 97.5 F L Pulse Rate 62 64 59 L Respiratory Rate 18 18 Blood Pressure 111/51 L 110/42 L Pulse Oximetry 100 100 Oxygen Delivery Oxygen Flow Rate Fraction of Inspired Oxygen 09/01/24 08:44 09/01/24 11:55 09/01/24 08:00 Temperature 97.8 F Pulse Rate 62 59 L Respiratory Rate 18 Blood Pressure 108/52 L Pulse Oximetry 100 100 Oxygen Delivery Nasal Cannula Oxygen Flow Rate 2 Fraction of Inspired Oxygen 09/01/24 12:00 09/01/24 08:00 09/01/24 10:00 Temperature Pulse Rate 61 62 Respiratory Rate Blood Pressure Pulse Oximetry 100 Oxygen Delivery Nasal Cannula Oxygen Flow Rate 2 Fraction of Inspired Oxygen 09/01/24 12:00 09/01/24 14:00 Temperature Pulse Rate 63 88 Respiratory Rate Blood Pressure Pulse Oximetry Oxygen Delivery Oxygen Flow Rate Fraction of Inspired Oxygen Intake/Output Intake/Output: Intake & Output 08/29/24 08/30/24 08/31/24 09/01/24 23:59 23:59 23:59 22:59 Intake Total 1352.1 424.5 920 1280.0 Output Total 1050 1000 450 500 Balance 302.1 -575.5 470 780.0 Meds/Results Medications: Active Medications Generic Name Dose Route Start Last Admin Trade Name Freq PRN Reason Stop Dose Admin Acetaminophen 650 mg 08/27/24 21:31 08/28/24 23:47 Acetaminophen 325 Mg Tablet PO 650 mg Q6H PRN Administration Mild Pain (1-3) or Fever Allopurinol 50 mg 08/26/24 09:00 09/01/24 08:44 Allopurinol 50 Mg Tablet PO 50 mg Q48H MADELINE Administration Amiodarone HCl 200 mg 09/01/24 09:00 09/01/24 08:44 Amiodarone Hcl 200 Mg Tablet PO 200 mg BID MADELINE Administration Aspirin 325 mg 08/26/24 09:00 09/01/24 08:44 Aspirin 325 Mg Tablet PO 325 mg DAILY MADELINE Administration Collagenase 1 applic 08/26/24 09:00 08/31/24 18:36 Collagenase Oint 30 Gm Tube TOPICAL 1 applic QAM [facility] Administration Dronabinol 10 mg 08/31/24 17:10 09/01/24 08:44 Dronabinol (*Crx) 2.5 Mg Capsule PO 10 mg BID MADELINE Administration Epoetin Crispin-epbx 10,000 units 08/29/24 09:00 08/31/24 10:13 Epoetin Crispin-Epbx 10,000 Units/Ml Vial SUB-Q 10,000 units TUTHSA@09 MADELINE Administration Guaifenesin 600 mg 08/27/24 10:00 09/01/24 08:45 Guaifenesin 12 Hr 600 Mg Tabcr PO 09/03/24 09:59 600 mg Q12HR MADELINE Administration Heparin Sodium (Porcine) 5,000 units 08/26/24 09:00 09/01/24 08:43 Heparin Sodium 5,000 Units/Ml Vial SUB-Q 5,000 units Q12HR MADELINE Administration Ceftriaxone Sodium 2 gm/ 100 mls @ 200 mls/hr 09/01/24 09:00 09/01/24 08:45 Dextrose IVPB 200 mls/hr DAILY MADELINE Administration Doxycycline Hyclate 100 mg/ 100 mls @ 100 mls/hr 08/31/24 17:00 09/01/24 05:30 Dextrose IVPB Infused Q12H MADELINE Infusion Dextrose/Sodium Chloride 1,000 mls @ 75 mls/hr 08/31/24 17:15 09/01/24 04:28 Dextrose 5% Sodium Chloride 0.45% IV CONT 75 mls/hr .[id number] MADELINE Administration Levothyroxine Sodium 75 mcg 08/26/24 06:30 09/01/24 05:18 Levothyroxine Sodium 75 Mcg Tablet PO 75 mcg DAILY@0630 MADELINE Administration Metronidazole 500 mg 08/26/24 22:00 09/01/24 13:44 Metronidazole 500 Mg Tablet PO 500 mg Q8HR MADELINE Administration Midodrine 10 mg 08/26/24 09:00 09/01/24 13:44 Midodrine Hcl 10 Mg Tablet PO 10 mg TID MADELINE Administration Miscellaneous Information 1 each 09/01/24 09:00 Mix Ivs In D5w If Possible XX 10/01/24 08:59 DAILY MADELINE Umeclidinium [place] 1 puff 08/26/24 08:00 09/01/24 08:12 Umeclidinium [place] 62.5 Mcg Ellipta INHALATION 1 puff DAILYRT MADELINE Administration Radiology Results: ITS Impressions Foot X-Ray 08/25/24 18:30 IMPRESSION: Very prominent soft tissue ulcer at the posterior heel, with suggestion of calcaneal exposure Soft tissue swelling Prominent osteopenia; this may obscure fracture or bone destruction. If there is concern for osteomyelitis, consider three-phase radionuclide bone scan. Tibia/Fibula X-Ray 08/25/24 18:35 IMPRESSION: Osteopenia Soft tissue swelling Arterial calcifications Head CT 08/25/24 18:43 IMPRESSION: Cerebral atherosclerosis and chronic small vessel ischemic changes of the cerebral white matter Small chronic right frontal probable cerebrovascular accident No acute intracranial finding or hemorrhage Chest CT 08/29/24 11:08 IMPRESSION: 1. Groundglass opacities in right middle lobe and anterior segment right upper lobe, consistent with mild pulmonary edema versus atypical pneumonia. 2. Small pleural effusions. Labs Labs: Laboratory Results - last 24 hr 08/31/24 09/01/24 22:25 04:13 WBC 9.4 RBC 3.18 L Hgb 7.7 L Hct 27.8 L MCV 87.4 MCH 24.2 L MCHC 27.7 L RDW 20.5 H Plt Count 234 MPV 12.0 H Immature Gran % (Auto) 2.1 H Neut % (Auto) 81.4 H Lymph % (Auto) 9.2 L [place] % (Auto) 6.1 Eos % (Auto) 1.0 Baso % (Auto) 0.2 Lymph # (Auto) 0.86 L [place] # (Auto) 0.6 Eos # (Auto) 0.1 Baso # (Auto) 0.0 Abs Immat Gran (auto) 0.20 H Absolute Neuts (auto) 7.6 H Absolute Nucleated RBC 0.160 H Nucleated RBC % 1.7 H Platelet Estimate Adequate Hypochromasia 1+ Anisocytosis 1+ Ovalocytes 1+ Schistocytes None seen Sodium 148 H 148 H Potassium 3.8 3.7 Chloride 109 H 107 Carbon Dioxide 38 H > 40 H Anion Gap 1 L BUN 94 H 88 H Creatinine 1.40 H 1.50 H Estim Creat Clear Calc 31 29 Estimated GFR 37 L 34 L Glucose 119 H 117 H Calcium 9.1 9.4 Magnesium 1.6 Total Bilirubin 0.4 AST 20 ALT 12 Alkaline Phosphatase 84 Total Protein 6.0 L Albumin 2.6 L Quality VTE Prophylaxis VTE prophylaxis: pharmacologic ordered (Heparin 5000 units subQ q.12 hours)
[2024-09-01] MEDS: COLLAGENASE OINT 30 GM TUBE 1 APPLIC TOPICAL (23:13)
[2024-09-02] VITALS (16 sets, daily range): BP systolic 95–115; BP diastolic 45–62; PULSE 61–94; RESP 16–20; TEMP 35.8–36.8; O2SAT 92–100
[2024-09-02] MEDS: DOXYCYCLINE IV 100 MG in DEXTROSE 5% 100 ML IVPB ×2 (05:20→17:38)
[2024-09-02] MEDS: metroNIDAZOLE 500 MG TABLET PO ×3 (05:22→21:36)
[2024-09-02 05:40] LABS: Basophils Percent Auto 0.1 % (0.2-1.2); Eosinophils Absolute Auto 0.1 K/mm3 (0-0.3); Eosinophils Percent Auto 1.2 % (0-4.4); Hematocrit 26.9 % (37.0-47.0); Hemoglobin 7.8 g/dL (12.0-15.0); Immature Granulocyte Absolute 0.16 K/mm3 (0.00-0.031); Immature Granulocyte Percent A 2.2 % (0-0.5); Lymphocytes Absolute Auto 0.61 K/mm3 (0.9-3.2); Lymphocytes Percent Auto 8.2 % (18.3-44.2); Mean Corpuscular Volume 86.2 fl (80-100); Monocytes Absolute Auto 0.7 K/mm3 (0.1-0.6); Monocytes Percent Auto 8.7 % (2.6-8.5); Neutrophils Absolute Auto 5.9 K/mm3 (1.3-6.7); Neutrophils Percent Auto 79.6 % (45.5-73.1); Nucleated Red Blood Cells Perc 2.6 % (0.0-0.2); Platelet Count Result 250 k/mm3 (150-375); Red Blood Count 3.12 M/mm3 (4.2-5.4); Red Cell Distribution Width 20.8 % (11.5-14.5); White Blood Count 7.4 K/mm3 (4.5-10.0)
[2024-09-02 05:56] LABS: Alanine Aminotransferase 10 U/L (6-35); Albumin Level 2.5 g/dL (3.5-5.1); Alkaline Phosphatase 82 U/L (38-126); Anion Gap 0 mmol/L (4-12); Aspartate Amino Transferase 15 U/L (14-36); Bilirubin,Total 0.4 mg/dL (0.2-1.3); Blood Urea Nitrogen 74 mg/dL (7-17); Calcium 9.2 mg/dL (8.4-10.2); Carbon Dioxide 38 mmol/L (22-30); Chloride 106 mmol/L (98-107); Estimated CRCL calculation 35 ml/min; Estimated Glomerular Filt Rate 40; Glucose 91 mg/dL (65-110); Magnesium 1.5 mg/dL (1.6-2.3); Potassium 3.4 mmol/L (3.4-5.0); Sodium 144 mmol/L (137-145)
[2024-09-02] MEDS: LEVOTHYROXINE SODIUM 75 MCG TABLET PO (05:59)
[2024-09-02 06:40] LABS: Anisocytosis 1+; Hypochromasia 2+; Platelet Estimate Adequate (Adequate)
[2024-09-02 06:41] LABS: Schistocytes None Seen
[2024-09-02] MEDS: UMECLIDINIUM BROMIDE 62.5 MCG ELLIPTA 1 PUFF INHALATION (08:08)
[2024-09-02] MEDS: HEPARIN SODIUM 5,000 UNITS/ML VIAL 5000 UNITS SUB-Q ×2 (08:11→21:36)
[2024-09-02] MEDS: guaiFENesin 12 HR 600 MG TABCR PO ×2 (08:11→21:36)
[2024-09-02] MEDS: AMIODARONE HCL 200 MG TABLET PO (08:11)
[2024-09-02] MEDS: ASPIRIN 325 MG TABLET PO (08:11)
[2024-09-02] MEDS: droNABinol (*CRX) 2.5 MG CAPSULE 10 MG PO (08:11)
[2024-09-02] MEDS: MIDODRINE HCL 10 MG TABLET PO ×2 (08:11→13:21)
[2024-09-02] MEDS: ALBUMIN HUMAN 25% 25 GM/100 ML 100 ML IVPB (08:21)
[2024-09-02] MEDS: POTASSIUM CHLORIDE 20 MEQ ER TABLET 40 MEQ PO (09:21)
[2024-09-02] MEDS: MAGNESIUM SULFATE 3GM/D5W100ML 3 GM/100 ML BAG IVPB (09:23)
[2024-09-02] MEDS: KCL 20 MEQ/SW 100 ML 100 ML 50 MEQ IVPB (09:23)
--- NOTE | 2024-09-02 10:31 | P.PNNP_ITS ---
Progress Note: A&P Assessment and Plan (1) Chronic kidney disease, stage 4 (severe): Code(s): N18.4 - Chronic kidney disease, stage 4 (severe) Status: Chronic Assessment and Plan: * baseline creatinine runs ~ 1.7 - 2.2mg/dl * at baseline currently if not better (although was elevated to 2.6mg/dl on admission) * lower creatinine also likely a manifestation of bed bound status/immobilization as well holding diuretics/cardiac medications * based on outpatient evaluation, thought to be secondary to previous HTN and chronic prerenal azotemia from her CHF/cardiomyopathy with ongoing need for diuretic therapy (2) Azotemia: Code(s): R79.89 - Other specified abnormal findings of blood chemistry Status: Acute Assessment and Plan: * slow improvement * BUN was quite elevated as noted on admission * suspect multifactorial: * previous steroid use on last hospitalization * use of doxycyline (tetracycline antibiotics have been known to do this) * prerenal factors (volume depletion/diminished oral intake) * ongoing diuretic therapy * inflammation (new infection?) * r/o GI blood loss - hemoccult positive * holding diuretics/Entresto for now * interestingly, BUN did improve with IVF boluses on admission * suspect a possible contributing component to confusion * if this fails to improve with conservative therapy, dialysis is a consideration... * however, I worry that dialysis may push her to ESRD status * furthermore, per my discussion with her , he is not sure she would want to do dialysis * on gentle IVFs * is this a situation where she is intravascularly dry (due to diminished oral intake) despite outward signs of volume overload? * her previous rising/elevated sodium would support this * follow trend of repeat labs (3) Hypernatremia: Code(s): E87.0 - Hyperosmolality and hypernatremia Status: Acute Assessment and Plan: * better with IVFs * this would suggest she is not drinking enough water * s/p D5W IVFs and currently on D5 1/2NS * try to encourage more free water intake * on appetite stimulants * follow trend for now (4) Hypotension: Qualifiers: Hypotension type: hypotension due to hypovolemia Qualified Code(s): E86.1 - Hypovolemia Code(s): I95.9 - Hypotension, unspecified Status: Acute Assessment and Plan: * has a chronic component at baseline * started on midodrine on last hospitalization * midodrine was on hold on re-admission but has been restarted * follow trend of hemodynamics (5) Sepsis: Qualifiers: Acute renal failure type: unspecified Sepsis acute organ dysfunction status: with acute organ dysfunction Sepsis type: sepsis due to unspecified organism Severe sepsis acute organ dysfunction type: acute renal failure Sever e sepsis shock status: without septic shock Qualified Code(s): A41.9 - Sepsis, unspecified organism; R65.20 - Severe sepsis without septic shock; N17.9 - Acute kidney failure, unspecified Code(s): A41.9 - Sepsis, unspecified organism Status: Acute Assessment and Plan: * concern noted by low BP, elevated inflammatory markers, and elevated WBC * known LE and sacral wounds present * on empiric antibiotics * follow hemodynamics (6) Metabolic encephalopathy: Code(s): G93.41 - Metabolic encephalopathy Status: Acute Assessment and Plan: * due to uremia/azotemia +/- infection (?) * seems better now (but continues to fluctuate) * CT of head negative for any acute findings * follow mentation (7) Anemia: Code(s): D64.9 - Anemia, unspecified Status: Acute Assessment and Plan: * as noted * anemia studies with iron deficiency * on IGNACIA (Retacrit) * follow trend of H/H (8) Cardiomyopathy: Qualifiers: Cardiomyopathy type: ischemic Qualified Code(s): I25.5 - Ischemic cardiomyopathy Code(s): I42.9 - Cardiomyopathy, unspecified Status: Acute Assessment and Plan: * known history * however. recent echo with improved EF to 55% * follow volume status closely * Cardiology following (9) Ulcer of left heel: Code(s): L97.429 - Non-pressure chronic ulcer of left heel and midfoot with unspecified severity Status: Acute Assessment and Plan: * s/p intervention on last hospitalization * General Surgery following * no intervention needed at this time * local wound care Long extensive discussion (greater than 20 minutes) with both the patient and her at bedside as well as with the independently outside the r oom regarding her ?failure to thrive? as manifested by her poor oral intake and overall deconditioned status; since she has refused a feeding and a multitude of other interventions to date, she may be getting to a point time we have to consider reassessing our goals of therapy/plan of care depending on the patient's wishes. Unfortunately, the patient has not been very forthcoming in stating what she wants done and I suspect this will need to be further clarified to determine our next course of action. On the concern that uremia was playing a role with her symptoms, I did even offer the consideration for dialysis but it seems she does not want to pursue such a therapy either. Will continue to follow Subjective Date/time seen: 09/02/24 10:31 Interval history: Follow-up for chronic kidney disease. No real significant change -- still not eating or drinking very much and she is refusing a feeding tube when this was brought up; she does not appear to be very motivated to help herself; at bedside and we discussed the situation. Exam Narrative: General: elderly but WD/WN female in NAD Heart: normal S1 and S2; no rub Lungs: coarse breath sounds; particularly at bases Abdomen: soft, nontender, nondistended, positive bowel sounds Extremities: no cyanosis or clubbing; trace - 1+ edema Skin: left foot dressings Objective Data Vital Signs Vital Signs: Vital Signs Temp Pulse Resp BP Pulse Ox O2 Del Method O2 Flow Rate 09/02/24 10:00 73 09/02/24 08:00 64 09/02/24 08:15 92 Room Air 09/02/24 08:00 98 Nasal Cannula 2 09/02/24 08:11 63 09/02/24 08:09 63 20 09/02/24 08:09 100 Nasal Cannula 2 09/02/24 07:17 97.7 F 67 20 114/51 L 98 09/02/24 06:00 64 09/02/24 05:05 98.2 F 68 20 99/45 L 99 09/02/24 04:00 65 09/02/24 04:00 62 20 100 Nasal Cannula 2 09/02/24 02:00 62 09/02/24 00:00 64 09/02/24 00:00 61 20 100 Nasal Cannula 2 09/01/24 23:34 98.0 F 61 20 101/60 100 09/01/24 20:00 62 20 91 Nasal Cannula 2 09/01/24 22:00 62 09/01/24 20:00 51 L 09/01/24 20:42 98.7 F 63 20 120/61 91 09/01/24 18:00 60 09/01/24 18:18 59 L 09/01/24 16:00 97.3 F L 60 20 109/60 93 09/01/24 16:00 100 Nasal Cannula 2 09/01/24 16:00 61 09/01/24 14:00 88 Intake/Output Intake/Output: Intake & Output 08/31/24 09/01/24 09/01/24 09/02/24 00:59 00:59 23:59 23:59 Intake Total 200 Output Total Balance 200 Meds/Results Medications: Active Medications Generic Name Dose Route Start Last Admin Trade Name Freq PRN Reason Stop Dose Admin Acetaminophen 650 mg 08/27/24 21:31 08/28/24 23:47 Acetaminophen 325 Mg Tablet PO 650 mg Q6H PRN Administration Mild Pain (1-3) or Fever Allopurinol 50 mg 08/26/24 09:00 09/01/24 08:44 Allopurinol 50 Mg Tablet PO 50 mg Q48H MADELINE Administration Amiodarone HCl 200 mg 09/01/24 09:00 09/02/24 08:11 Amiodarone Hcl 200 Mg Tablet PO 200 mg BID MADELINE Administration Aspirin 325 mg 08/26/24 09:00 09/02/24 08:11 Aspirin 325 Mg Tablet PO 325 mg DAILY [facility] Administration Collagenase 1 applic 08/26/24 09:00 09/01/24 23:13 Collagenase Oint 30 Gm Tube TOPICAL 1 applic QAM [facility] Administration Dronabinol 10 mg 08/31/24 17:10 09/02/24 08:11 Dronabinol (*Crx) 2.5 Mg Capsule PO 10 mg BID [facility] Administration Epoetin Crispin-epbx 10,000 units 08/29/24 09:00 08/31/24 10:13 Epoetin Crispin-Epbx 10,000 Units/Ml Vial SUB-Q 10,000 units TUTHSA@09 [facility] Administration Guaifenesin 600 mg 08/27/24 10:00 09/02/24 08:11 Guaifenesin 12 Hr 600 Mg Tabcr PO 09/03/24 09:59 600 mg Q12HR MADELINE Administration Heparin Sodium (Porcine) 5,000 units 08/26/24 09:00 09/02/24 08:11 Heparin Sodium 5,000 Units/Ml Vial SUB-Q 5,000 units Q12HR MADELNIE Administration Ceftriaxone Sodium 2 gm/ 100 mls @ 200 mls/hr 09/01/24 09:00 09/02/24 10:09 Dextrose IVPB Infused DAILY MADELINE Infusion Doxycycline Hyclate 100 mg/ 100 mls @ 100 mls/hr 08/31/24 17:00 09/02/24 05:20 Dextrose IVPB 100 mls/hr Q12H MADELINE Administration Dextrose/Sodium Chloride 1,000 mls @ 75 mls/hr 08/31/24 17:15 09/01/24 21:03 Dextrose 5% Sodium Chloride 0.45% IV CONT 75 mls/hr .[id number] MADELINE Administration Levothyroxine Sodium 75 mcg 08/26/24 06:30 09/02/24 05:59 Levothyroxine Sodium 75 Mcg Tablet PO 75 mcg DAILY@0630 MADELINE Administration Metronidazole 500 mg 08/26/24 22:00 09/02/24 05:22 Metronidazole 500 Mg Tablet PO 500 mg Q8HR MADELINE Administration Midodrine 10 mg 08/26/24 09:00 09/02/24 08:11 Midodrine Hcl 10 Mg Tablet PO 10 mg TID MADELINE Administration Miscellaneous Information 1 each 09/01/24 09:00 Mix Ivs In D5w If Possible XX 10/01/24 08:59 DAILY MADELINE Umeclidinium [place] 1 puff 08/26/24 08:00 09/02/24 08:08 Umeclidinium [place] 62.5 Mcg Ellipta INHALATION 1 puff DAILYRT MADELINE Administration Radiology Results: ITS Impressions Foot X-Ray 08/25/24 18:30 IMPRESSION: Very prominent soft tissue ulcer at the posterior heel, with suggestion of calcaneal exposure Soft tissue swelling Prominent osteopenia; this may obscure fracture or bone destruction. If there is concern for osteomyelitis, consider three-phase radionuclide bone scan. Tibia/Fibula X-Ray 08/25/24 18:35 IMPRESSION: Osteopenia Soft tissue swelling Arterial calcifications Head CT 08/25/24 18:43 IMPRESSION: Cerebral atherosclerosis and chronic small vessel ischemic changes of the cerebral white matter Small chronic right frontal probable cerebrovascular accident No acute intracranial finding or hemorrhage Chest CT 08/29/24 11:08 IMPRESSION: 1. Groundglass opacities in right middle lobe and anterior segment right upper lobe, consistent with mild pulmonary edema versus atypical pneumonia. 2. Small pleural effusions. Chest X-Ray 09/01/24 15:29 IMPRESSION: Cardiomegaly, congestive heart failure and pulmonary interstitial edema, small pleural effusions mildly improved since 08/28/2024 Labs Labs: Laboratory Tests 09/02/24 04:38 09/02/24 04:38 Calcium 9.2 Magnesium 1.5 L Total Bilirubin 0.4 AST 15 ALT 10 Alkaline Phosphatase 82 Total Protein 6.0 L Albumin 2.5 L
[2024-09-02] MEDS: DEXTROSE 5%/0.45% SOD CHL 1,000 ML 75 ML IV CONT (12:30)
--- NOTE | 2024-09-02 12:36 | PCNFU ---
Nutrition Follow-Up Complete: Increased nutrient needs related to altered skin integrity as evidenced by noted pressure injuries Goal:PO intake 75% of meals and supplements Pt not progressing towards goal at all Pt current nutrition is Heart heathy, soft and bite sized level 6, Ensure compact BID, ROBERT BID. Nutrition recommendation: May need to consider alternative nutrition support Last recorded weight is 87.5 kg. Bowel Motility: +BM 09/02 Labs Reviewed: Hgb:7.8, HCT:26.9, Alb:2.5, GFR:40, BUN:74, Cr:1.3 Meds Noted: KCL Skin: DTPI to both heels, unstageable to right lower leg Additional Notes: Pt continues on a soft and bite sized diet, minimal if any intake. Pt refusing meals despite nursing encouragement and encouragement from hospitalist. Spouse in room during assessment, attempted to feed pt bites which she did take one and a few sips of ROBERT at bedside. Pt is adamant she does not want to eat. Explained possibilty of a tube feeding, pt not interested in that either but stated whatever you have to do. monitor intake, wt, labs, skin. Follow up in 3 days.
--- NOTE | 2024-09-02 12:54 | PCOTNOTE ---
Attempted to see Patient for OT treatment session. Patient refuses all activity. Therapist attempted to assist Patient with feeding. Patient did take 1 bite of noodles, refused more. Attempted bed mobility, refused to be touched or assisted and stated she had already sat up earlier. Therapist also attempted UE exercises for increased movement quality for increased swelling and positioning UE's , refused. RN notified and aware
--- NOTE | 2024-09-02 13:39 | P.PNIM_ITS ---
Progress Note: A&P Assessment and Plan (1) Sepsis: Qualifiers: Sepsis type: sepsis due to unspecified organism Sepsis acute organ dysfunction status: with acute organ dysfunction Severe sepsis acute organ dysfunction type: acute renal failure Acute renal failure type: unspecified Severe sepsis shock status: without septic shock Qualified Code(s): A41.9 - Sepsis, unspecified organism; R65.20 - Severe sepsis without septic shock; N17.9 - Acute kidney failure, unspecified Code(s): A41.9 - Sepsis, unspecified organism Status: Acute Assessment and Plan: The patient's hypotension could be strictly cardiac in nature versus hypovolemia but cannot rule out source of infection or sepsis. * Patient received cefepime Flagyl and vancomycin in the ER to treat for possible infected foot wound. Will switch antibiotic to Ceftriaxone 2 gm IVPB daily, change Flagyl to oral, and stop Vancomycin. * Patient was noted to have mild elevation in white count and does have some chronic wounds but they do not visually a appear to be acutely infected but given her condition this cannot completely be ruled out especially in the setting of acute increasing ESR and CRP. * She is not febrile. Blood cultures no growth to date. Procalcitonin 2.3. * BP remains stable * WBC improved from 12.3>10.7>10.2>9.7 (2) Metabolic encephalopathy: Code(s): G93.41 - Metabolic encephalopathy Status: Acute Assessment and Plan: * Likely due to uremia/azotemia with markedly elevated BUN above baseline. However cannot rule out some component of encephalopathy due to acute infection. resolved (3) Acute on chronic renal failure: Qualifiers: Acute renal failure type: unspecified Chronic kidney disease stage: stage 4 (severe) Qualified Code(s): N17.9 - Acute kidney failure, unspecified; N18.4 - Chronic kidney disease, stage 4 (severe) Code(s): N17.9 - Acute kidney failure, unspecified; N18.9 - Chronic kidney disease, unspecified Status: Acute Assessment and Plan: Most likely multifactorial. It is certainly component of hypovolemia decreased fluid intake given the patient's clinical appearance. Patient is also on diuretic therapy and has some prerenal component due to acute on chronic hypotension. * Patient's BUN has increased markedly in this is less likely causing up component of her decreased oral intake and or confusion due to uremia. Will hold nephrotoxic medications including Entresto, Bumex and metolazone. * BUN/CR 115/1.6 on am labs * Consult Nephrology for further recommendations. Baseline Cr runs approximately 1.7-2.2 BUN 74, Cr 1.3 Nephrology following and noted patient does not need dialysis at this time (4) Hypokalemia: Code(s): E87.6 - Hypokalemia Status: Acute Assessment and Plan: resolved monitor and replace accordingly (5) Hypotension: Qualifiers: Hypotension type: hypotension due to hypovolemia Qualified Code(s): E86.1 - Hypovolemia Code(s): I95.9 - Hypotension, unspecified Status: Acute Assessment and Plan: The patient has some component of chronic hypotension with cardiology notes mentioning patient had prior asymptomatic hypotension with systolic blood pressures in the 90s. * BP remains stable * Midodrine 10 mg PO TID * Encourage PO intake. Can continue Midodrine for now. continue holding Entresto, Bumex, Metolazone for now. Cardiology input appreciated (6) Cardiomyopathy: Qualifiers: Cardiomyopathy type: ischemic Qualified Code(s): I25.5 - Ischemic cardiomyopathy Code(s): I42.9 - Cardiomyopathy, unspecified Status: Acute Assessment and Plan: * Patient's chest x-ray appears similar to prior. * After receiving 30 mL/kilos fluid bolus patient's oxygen requirement did go up from her baseline 1 L up to 3 L. the patient's BNP is markedly elevated compared to prior values. Wondering if recent initiation of midodrine may have contributed to to an acute decompensation. * The patient had recent echocardiogram earlier this month demonstrated EF that improved to 55%. With some right-sided ventricular enlargement and expected valvular abnormalities given the patient's history. * Hold Entresto,Bumex, or metolazone without discussion with both Nephrology and Cardiology. cardiology following (7) Decubitus ulcer of sacral area: Qualifiers: Pressure injury stage: unspecified pressure injury stage Qualified Code(s): L89.159 - Pressure ulcer of sacral region, unspecified stage Code(s): L89.159 - Pressure ulcer of sacral region, unspecified stage Status: Acute Assessment and Plan: * Wound Care consult. * Antifungal barrier cream. * Turn q 2. * Surgery following in case intervention needs done. * Chad 1 pack BID, encourage PO intake. (8) Ulcer of left heel: Code(s): L97.429 - Non-pressure chronic ulcer of left heel and midfoot with unspecified severity Status: Acute Assessment and Plan: * Santyl to wound bed to promote healing. * Waffle boots. * Surgery following in case intervention needs done. * Chad 1 pack BID, encourage PO intake. (9) Peripheral artery disease: Code(s): I73.9 - Peripheral vascular disease, unspecified Status: Acute Assessment and Plan: ABIs during her last hospitalization showed moderately decreased ABIs consistent with arterial occlusive disease. This can contribute to poor healing with her lower extremity ulcers. cardiology evaluated and noted most likely outpatient intervention (10) Elevated troponin: Code(s): R79.89 - Other specified abnormal findings of blood chemistry Status: Acute Assessment and Plan: * Trop 0.617> 0.633>0.185 likely demand from sepsis trending down cardiology on board Plan Iron deficiency anemia r/o GI bleed hb 7.7, isat 9 Venofer 1000/1000 FOBT pending Gi eval noted, endoscopy on hold awaiting patient to be stable for procedure monitor h and h GI following Possible Pneumonia CT Chest showed possible Atypical pneumonia On Rocephin and Day 4 Doxycycline monitor FTT/protein energy malnutrition appetite and oral intake improving On Dronabinol Patient still not eating, and refuses Tube feeding dietitian following patient stated she would eat if she ordered her breakfast with her food choice, however she still did not eat and still declined tube feeding Consulted rn urgent care for hospice/palliative care discussion contiue D5/NS for now Paroxysmal Afib with RVR Continue Amiodarone per cardiology Not on Anticoagulation at home due GI bleed issues monitor cards following Hypernatremia Na 144 Continue d5w/NS adjust fluids accordingly DVT prophylaxis on Sq heparin Discussed care plan with and patient at bedside Follow up with hospice/palliative care discussion Subjective Date/time seen: 09/02/24 13:39 Interval history: Patient not eating and refusing tube feeding Had long conversation with her this morning she stated she would eat if she ordered food sof her choice I discussed with the nurse and patient ordered her foof choice and still did not eat and still turned down tube feeds Consulted the rn urgent care for hospice/palliative care discussion Review of Systems Review of Systems: All systems reviewed & are unremarkable except as noted in HPI and below ROS unobtainable: Yes unobtainable due to mental status Exam Narrative: General: female in no acute respiratory distress who is nontoxic appearing, lying semi recumbent in bed. HEENT: Normocephalic. Atraumatic. Extraocular movement intact. Sclera clear and anicteric. No facial asymmetry. Chest: Lungs are coarse to auscultation bilaterally. No wheezes or crackles. Remains on 2L NC. CV: Heart was regular rate and rhythm. S1-S2. No murmurs, gallops, or rubs. Abd: Abdomen was soft. Nontender. Nondistended. Positive bowel sounds. No organomegaly or masses. Ext: No clubbing, cyanosis, or edema. 2+ DP pulses bilaterally. Neuro: Patient is alert and oriented x4. Cranial nerves 2-12 are intact. Speech is clear. Const: General: comfortable and no acute distress Other: Acutely ill-appearing, obese, appears older than stated age HENMT: Other: Head is normocephalic atraumatic, lips are dry with peeling skin the, mucous membranes are dry, fair dentition but exam limited as the patient only minimally opens her mouth Eyes: Other: Pupils are equal and reactive, marked conjunctival pallor, no scleral icterus Neck: Other: No obvious JVD, large neck circumference, supple Resp: Effort & Inspection: normal respiratory effort Auscultation: clear to auscultation bilaterally Other: Mild tachypnea, accessory muscle use, decreased breath sounds bilaterally most notably at the bases Cardio: Rate: regular rate Rhythm: regular rhythm Other: paced 71 GI: Auscultation: normal bowel sounds Other: Obese, soft, nontender : Other: Melchor catheter in place with 250 mL of dark yellow urine Urinary Catheter: Urinary Catheter: patent and draining (yellow) Skin: General skin exam: wounds noted Wounds: wounds noted Other: surgical evaluation noted today Right lateral lower leg ulcer appears superficial but with 100% of the wound bed dark red/purple and black with mild localized pink discoloration of the skin around the border of the wound. No crepitus, no purulent drainage, and no odor. Unchanged from yesterday. Right heel with a purple deep tissue injury measuring 5 x 6 cm, nonblanchable, all of the overlying skin is intact. Stage IV left heel ulcer measuring 4.5 x 6 x 1 cm with more yellow and mendes slough in about 80% of the wound bed today. No purulent drainage, no crepitus, and no foul odor . Neuro: Speech: normal speech Other: Patient is alert oriented to person, place and year, she is confused as to time and thought the month was August already she is a poor historian regarding recent events and why she was brought to the hospital, speech is slow and clear but only answering in 1-2 word intervals, patient has 5/5 strength on the left water treatment specialist and 3/5 strength on the right, patient was unable to pull her feet away from noxious stimuli Extrem: General: pedal edema bilaterally 2+ Other: Patient has chronic wounds 1 of the posterior right lower calf with a slightly larger base than previous but base appears clean no evidence of surrounding erythema (please see nursing documentation for imaging), and black eschar on the left heel dry, no drainage, no surrounding erythema, 1+ pretibial edema bilateral Psych: Mental Status: mental status grossly normal Affect: normal affect Other: Affect flat Objective Data Vital Signs Vital Signs: Vital Signs - 24 hr 09/01/24 14:00 09/01/24 16:00 09/01/24 16:00 Temperature Pulse Rate 88 61 Respiratory Rate Blood Pressure Pulse Oximetry 100 Oxygen Delivery Nasal Cannula Oxygen Flow Rate 2 Fraction of Inspired Oxygen 09/01/24 16:00 09/01/24 18:18 09/01/24 18:00 Temperature 97.3 F L Pulse Rate 60 59 L 60 Respiratory Rate 20 Blood Pressure 109/60 Pulse Oximetry 93 Oxygen Delivery Oxygen Flow Rate Fraction of Inspired Oxygen 09/01/24 20:42 09/01/24 20:00 09/01/24 22:00 Temperature 98.7 F Pulse Rate 63 51 L 62 Respiratory Rate 20 Blood Pressure 120/61 Pulse Oximetry 91 Oxygen Delivery Oxygen Flow Rate Fraction of Inspired Oxygen 09/01/24 20:00 09/01/24 23:34 09/02/24 00:00 Temperature 98.0 F Pulse Rate 62 61 61 Respiratory Rate 20 20 20 Blood Pressure 101/60 Pulse Oximetry 91 100 100 Oxygen Delivery Nasal Cannula Nasal Cannula Oxygen Flow Rate 2 2 Fraction of Inspired Oxygen 09/02/24 00:00 09/02/24 02:00 09/02/24 04:00 Temperature Pulse Rate 64 62 62 Respiratory Rate 20 Blood Pressure Pulse Oximetry 100 Oxygen Delivery Nasal Cannula Oxygen Flow Rate 2 Fraction of Inspired Oxygen 09/02/24 04:00 09/02/24 05:05 09/02/24 06:00 Temperature 98.2 F Pulse Rate 65 68 64 Respiratory Rate 20 Blood Pressure 99/45 L Pulse Oximetry 99 Oxygen Delivery Oxygen Flow Rate Fraction of Inspired Oxygen 09/02/24 07:17 09/02/24 08:09 09/02/24 08:09 Temperature 97.7 F Pulse Rate 67 63 Respiratory Rate 20 20 Blood Pressure 114/51 L Pulse Oximetry 98 100 Oxygen Delivery Nasal Cannula Oxygen Flow Rate 2 Fraction of Inspired Oxygen 28 09/02/24 08:11 09/02/24 08:00 09/02/24 08:15 Temperature Pulse Rate 63 Respiratory Rate Blood Pressure Pulse Oximetry 98 92 Oxygen Delivery Nasal Cannula Room Air Oxygen Flow Rate 2 Fraction of Inspired Oxygen 09/02/24 08:00 09/02/24 10:00 09/02/24 12:00 Temperature Pulse Rate 64 73 67 Respiratory Rate Blood Pressure Pulse Oximetry Oxygen Delivery Oxygen Flow Rate Fraction of Inspired Oxygen Intake/Output Intake/Output: Intake & Output 08/31/24 09/01/24 09/01/24 09/02/24 00:59 00:59 23:59 23:59 Intake Total 1400 Output Total Balance 1400 Meds/Results Medications: Active Medications Generic Name Dose Route Start Last Admin Trade Name Freq PRN Reason Stop Dose Admin Acetaminophen 650 mg 08/27/24 21:31 08/28/24 23:47 Acetaminophen 325 Mg Tablet PO 650 mg Q6H PRN Administration Mild Pain (1-3) or Fever Allopurinol 50 mg 08/26/24 09:00 09/01/24 08:44 Allopurinol 50 Mg Tablet PO 50 mg Q48H MADELINE Administration Amiodarone HCl 200 mg 09/01/24 09:00 09/02/24 08:11 Amiodarone Hcl 200 Mg Tablet PO 200 mg BID MADELINE Administration Aspirin 325 mg 08/26/24 09:00 09/02/24 08:11 Aspirin 325 Mg Tablet PO 325 mg DAILY MADELINE Administration Collagenase 1 applic 08/26/24 09:00 09/01/24 23:13 Collagenase Oint 30 Gm Tube TOPICAL 1 applic QAM MADELINE Administration Dronabinol 10 mg 08/31/24 17:10 09/02/24 08:11 Dronabinol (*Crx) 2.5 Mg Capsule PO 10 mg BID MADELINE Administration Epoetin Crispin-epbx 10,000 units 08/29/24 09:00 08/31/24 10:13 Epoetin Crispin-Epbx 10,000 Units/Ml Vial SUB-Q 10,000 units TUTHSA@09 MADELINE Administration Guaifenesin 600 mg 08/27/24 10:00 09/02/24 08:11 Guaifenesin 12 Hr 600 Mg Tabcr PO 09/03/24 09:59 600 mg Q12HR MADELINE Administration Heparin Sodium (Porcine) 5,000 units 08/26/24 09:00 09/02/24 08:11 Heparin Sodium 5,000 Units/Ml Vial SUB-Q 5,000 units Q12HR MADELINE Administration Ceftriaxone Sodium 2 gm/ 100 mls @ 200 mls/hr 09/01/24 09:00 09/02/24 10:09 Dextrose IVPB Infused DAILY MADELINE Infusion Doxycycline Hyclate 100 mg/ 100 mls @ 100 mls/hr 08/31/24 17:00 09/02/24 05:20 Dextrose IVPB 100 mls/hr Q12H MADELINE Administration Dextrose/Sodium Chloride 1,000 mls @ 75 mls/hr 08/31/24 17:15 09/02/24 12:30 Dextrose 5% Sodium Chloride 0.45% IV CONT 75 mls/hr .[id number] MADELINE Administration Levothyroxine Sodium 75 mcg 08/26/24 06:30 09/02/24 05:59 Levothyroxine Sodium 75 Mcg Tablet PO 75 mcg DAILY@0630 MADELINE Administration Metronidazole 500 mg 08/26/24 22:00 09/02/24 13:21 Metronidazole 500 Mg Tablet PO 500 mg Q8HR MAEDLINE Administration Midodrine 10 mg 08/26/24 09:00 09/02/24 13:21 Midodrine Hcl 10 Mg Tablet PO 10 mg TID MADELINE Administration Miscellaneous Information 1 each 09/01/24 09:00 Mix Ivs In D5w If Possible XX 10/01/24 08:59 DAILY MADELINE Umeclidinium [place] 1 puff 08/26/24 08:00 09/02/24 08:08 Umeclidinium [place] 62.5 Mcg Ellipta INHALATION 1 puff DAILYRT MADELINE Administration Radiology Results: ITS Impressions Foot X-Ray 08/25/24 18:30 IMPRESSION: Very prominent soft tissue ulcer at the posterior heel, with suggestion of calcaneal exposure Soft tissue swelling Prominent osteopenia; this may obscure fracture or bone destruction. If there is concern for osteomyelitis, consider three-phase radionuclide bone scan. Tibia/Fibula X-Ray 08/25/24 18:35 IMPRESSION: Osteopenia Soft tissue swelling Arterial calcifications Head CT 08/25/24 18:43 IMPRESSION: Cerebral atherosclerosis and chronic small vessel ischemic changes of the cerebral white matter Small chronic right frontal probable cerebrovascular accident No acute intracranial finding or hemorrhage Chest CT 08/29/24 11:08 IMPRESSION: 1. Groundglass opacities in right middle lobe and anterior segment right upper lobe, consistent with mild pulmonary edema versus atypical pneumonia. 2. Small pleural effusions. Chest X-Ray 09/01/24 15:29 IMPRESSION: Cardiomegaly, congestive heart failure and pulmonary interstitial edema, small pleural effusions mildly improved since 08/28/2024 Labs Labs: Laboratory Results - last 24 hr 09/02/24 04:38 WBC 7.4 RBC 3.12 L Hgb 7.8 L Hct 26.9 L MCV 86.2 MCH 25.0 L MCHC 29.0 L RDW 20.8 H Plt Count 250 MPV 13.0 H Immature Gran % (Auto) 2.2 H Neut % (Auto) 79.6 H Lymph % (Auto) 8.2 L [place] % (Auto) 8.7 H Eos % (Auto) 1.2 Baso % (Auto) 0.1 L Lymph # (Auto) 0.61 L [place] # (Auto) 0.7 H Eos # (Auto) 0.1 Baso # (Auto) 0.0 Abs Immat Gran (auto) 0.16 H Absolute Neuts (auto) 5.9 Absolute Nucleated RBC 0.190 H Nucleated RBC % 2.6 H Platelet Estimate Adequate Hypochromasia 2+ Anisocytosis 1+ Schistocytes None seen Sodium 144 Potassium 3.4 Chloride 106 Carbon Dioxide 38 H Anion Gap 0 L BUN 74 H D Creatinine 1.30 H Estim Creat Clear Calc 35 Estimated GFR 40 L Glucose 91 Calcium 9.2 Magnesium 1.5 L Total Bilirubin 0.4 AST 15 ALT 10 Alkaline Phosphatase 82 Total Protein 6.0 L Albumin 2.5 L Quality VTE Prophylaxis VTE prophylaxis: pharmacologic ordered (Heparin 5000 units subQ q.12 hours)
[2024-09-02] MEDS: COLLAGENASE OINT 30 GM TUBE 1 APPLIC TOPICAL (15:00)
--- NOTE | 2024-09-02 16:30 | PM.PNGS ---
Progress Note: A&P Assessment and Plan (1) Ulcer of left heel: Code(s): L97.429 - Non-pressure chronic ulcer of left heel and midfoot with unspecified severity Status: Acute Assessment and Plan: Stage IV left heel pressure ulcer that appears stable, but now has a firm black eschar at the wound edges from 2-7 o'clock. Continue local wound care with Santyl dressing changes for enzymatic debridement. Continue using waffle boots and elevating her lower extremities at rest. The patient is refusing multiple treatments and also refusing to eat. I discussed with the patient the importance of nutritional status with her wounds and the healing process. Her albumin is 2.5. The Hospitalist had a conversation with her regarding a feeding tube, which she refused. Per staff, they have also consulted Hospice, although patient is also not interested in this route. (2) Ulcer of right leg: Code(s): L97.919 - Non-pressure chronic ulcer of unspecified part of right lower leg with unspecified severity Status: Acute Assessment and Plan: Continue local wound care with Santyl dressing changes for enzymatic debridement. Continue wall full boots and elevating lower extremities. (3) Sepsis: Qualifiers: Sepsis type: sepsis due to unspecified organism Sepsis acute organ dysfunction status: with acute organ dysfunction Severe sepsis acute organ dysfunction type: acute renal failure Acute renal failure type: unspecified Severe sepsis shock status: without septic shock Qualified Code(s): A41.9 - Sepsis, unspecified organism; R65.20 - Severe sepsis without septic shock; N17.9 - Acute kidney failure, unspecified Code(s): A41.9 - Sepsis, unspecified organism Status: Acute (4) Metabolic encephalopathy: Code(s): G93.41 - Metabolic encephalopathy Status: Acute (5) Acute on chronic renal failure: Qualifiers: Acute renal failure type: unspecified Chronic kidney disease stage: stage 4 (severe) Qualified Code(s): N17.9 - Acute kidney failure, unspecified; N18.4 - Chronic kidney disease, stage 4 (severe) Code(s): N17.9 - Acute kidney failure, unspecified; N18.9 - Chronic kidney disease, unspecified Status: Acute Assessment and Plan: Nephrology following and have discussed the option of hemodialysis, but the patient has refused this as well. (6) Peripheral artery disease: Code(s): I73.9 - Peripheral vascular disease, unspecified Status: Acute Plan I have discussed the patient's case and plan of care with Dr. Sneed. Subjective Subjective Date/Time Seen: 09/02/24 16:30 Interval history: Patient seen in the IMU. She is alert and oriented, but per staff she has been confused. She is refusing multiple things at this time. She is refusing to eat or drink and is currently on IV fluids. Hospitalist even discussed a feeding tube today, which she also refused. Nephrology has also discussed possible need for dialysis with the patient, which she is refusing. They have also brought up hospice, but she has refused this as well. Exam Narrative: Right lower leg wound covered by dry gauze dressing which is intact. Nursing change the dressing about an hour prior to my arrival. Left foot dressing removed. Left heel ulcer with about 90% yellow and mendes slough in the wound bed and 10% pink. The circumference of the wound from 2-7 o'clock has a black eschar at the edge of the wound and skin edges. No purulent drainage. No foul odor. Objective Data Vital Signs Vital Signs: Vital Signs - 24 hr 09/01/24 18:18 09/01/24 18:00 09/01/24 20:42 Temperature 98.7 F Pulse Rate 59 L 60 63 Respiratory Rate 20 Blood Pressure 120/61 Pulse Oximetry 91 Oxygen Delivery Oxygen Flow Rate Fraction of Inspired Oxygen 09/01/24 20:00 09/01/24 22:00 09/01/24 20:00 Temperature Pulse Rate 51 L 62 62 Respiratory Rate 20 Blood Pressure Pulse Oximetry 91 Oxygen Delivery Nasal Cannula Oxygen Flow Rate 2 Fraction of Inspired Oxygen 09/01/24 23:34 09/02/24 00:00 09/02/24 00:00 Temperature 98.0 F Pulse Rate 61 61 64 Respiratory Rate 20 20 Blood Pressure 101/60 Pulse Oximetry 100 100 Oxygen Delivery Nasal Cannula Oxygen Flow Rate 2 Fraction of Inspired Oxygen 09/02/24 02:00 09/02/24 04:00 09/02/24 04:00 Temperature Pulse Rate 62 62 65 Respiratory Rate 20 Blood Pressure Pulse Oximetry 100 Oxygen Delivery Nasal Cannula Oxygen Flow Rate 2 Fraction of Inspired Oxygen 09/02/24 05:05 09/02/24 06:00 09/02/24 07:17 Temperature 98.2 F 97.7 F Pulse Rate 68 64 67 Respiratory Rate 20 20 Blood Pressure 99/45 L 114/51 L Pulse Oximetry 99 98 Oxygen Delivery Oxygen Flow Rate Fraction of Inspired Oxygen 09/02/24 08:09 09/02/24 08:09 09/02/24 08:11 Temperature Pulse Rate 63 63 Respiratory Rate 20 Blood Pressure Pulse Oximetry 100 Oxygen Delivery Nasal Cannula Oxygen Flow Rate 2 Fraction of Inspired Oxygen 28 09/02/24 08:00 09/02/24 08:15 09/02/24 08:00 Temperature Pulse Rate 64 Respiratory Rate Blood Pressure Pulse Oximetry 98 92 Oxygen Delivery Nasal Cannula Room Air Oxygen Flow Rate 2 Fraction of Inspired Oxygen 09/02/24 10:00 09/02/24 12:00 Temperature Pulse Rate 73 67 Respiratory Rate Blood Pressure Pulse Oximetry Oxygen Delivery Oxygen Flow Rate Fraction of Inspired Oxygen Intake/Output Intake/Output: Intake & Output 08/31/24 09/01/24 09/01/24 09/02/24 00:59 00:59 23:59 23:59 Intake Total 1400 Output Total Balance 1400 Meds/Results Medications: Active Medications Generic Name Dose Route Start Last Admin Trade Name Freq PRN Reason Stop Dose Admin Acetaminophen 650 mg 08/27/24 21:31 08/28/24 23:47 Acetaminophen 325 Mg Tablet PO 650 mg Q6H PRN Administration Mild Pain (1-3) or Fever Allopurinol 50 mg 08/26/24 09:00 09/01/24 08:44 Allopurinol 50 Mg Tablet PO 50 mg Q48H MADELINE Administration Amiodarone HCl 200 mg 09/01/24 09:00 09/02/24 08:11 Amiodarone Hcl 200 Mg Tablet PO 200 mg BID MADELINE Administration Aspirin 325 mg 08/26/24 09:00 09/02/24 08:11 Aspirin 325 Mg Tablet PO 325 mg DAILY [facility] Administration Collagenase 1 applic 08/26/24 09:00 09/01/24 23:13 Collagenase Oint 30 Gm Tube TOPICAL 1 applic QAM [facility] Administration Dronabinol 10 mg 08/31/24 17:10 09/02/24 08:11 Dronabinol (*Crx) 2.5 Mg Capsule PO 10 mg BID MADELINE Administration Epoetin Crispin-epbx 10,000 units 08/29/24 09:00 08/31/24 10:13 Epoetin Rcispin-Epbx 10,000 Units/Ml Vial SUB-Q 10,000 units TUTHSA@09 MADELINE Administration Guaifenesin 600 mg 08/27/24 10:00 09/02/24 08:11 Guaifenesin 12 Hr 600 Mg Tabcr PO 09/03/24 09:59 600 mg Q12HR MADELINE Administration Heparin Sodium (Porcine) 5,000 units 08/26/24 09:00 09/02/24 08:11 Heparin Sodium 5,000 Units/Ml Vial SUB-Q 5,000 units Q12HR MADELINE Administration Ceftriaxone Sodium 2 gm/ 100 mls @ 200 mls/hr 09/01/24 09:00 09/02/24 10:09 Dextrose IVPB Infused DAILY MADELINE Infusion Doxycycline Hyclate 100 mg/ 100 mls @ 100 mls/hr 08/31/24 17:00 09/02/24 05:20 Dextrose IVPB 100 mls/hr Q12H MADELINE Administration Dextrose/Sodium Chloride 1,000 mls @ 75 mls/hr 08/31/24 17:15 09/02/24 12:30 Dextrose 5% Sodium Chloride 0.45% IV CONT 75 mls/hr .[id number] MADELINE Administration Levothyroxine Sodium 75 mcg 08/26/24 06:30 09/02/24 05:59 Levothyroxine Sodium 75 Mcg Tablet PO 75 mcg DAILY@0630 MADELINE Administration Metronidazole 500 mg 08/26/24 22:00 09/02/24 13:21 Metronidazole 500 Mg Tablet PO 500 mg Q8HR MADELINE Administration Midodrine 10 mg 08/26/24 09:00 09/02/24 13:21 Midodrine Hcl 10 Mg Tablet PO 10 mg TID MADELINE Administration Miscellaneous Information 1 each 09/01/24 09:00 Mix Ivs In D5w If Possible XX 10/01/24 08:59 DAILY MADELINE Umeclidinium [place] 1 puff 08/26/24 08:00 09/02/24 08:08 Umeclidinium [place] 62.5 Mcg Ellipta INHALATION 1 puff DAILYRT MADELINE Administration Radiology Results: ITS Impressions Foot X-Ray 08/25/24 18:30 IMPRESSION: Very prominent soft tissue ulcer at the posterior heel, with suggestion of calcaneal exposure Soft tissue swelling Prominent osteopenia; this may obscure fracture or bone destruction. If there is concern for osteomyelitis, consider three-phase radionuclide bone scan. Tibia/Fibula X-Ray 08/25/24 18:35 IMPRESSION: Osteopenia Soft tissue swelling Arterial calcifications Head CT 08/25/24 18:43 IMPRESSION: Cerebral atherosclerosis and chronic small vessel ischemic changes of the cerebral white matter Small chronic right frontal probable cerebrovascular accident No acute intracranial finding or hemorrhage Chest CT 08/29/24 11:08 IMPRESSION: 1. Groundglass opacities in right middle lobe and anterior segment right upper lobe, consistent with mild pulmonary edema versus atypical pneumonia. 2. Small pleural effusions. Chest X-Ray 09/01/24 15:29 IMPRESSION: Cardiomegaly, congestive heart failure and pulmonary interstitial edema, small pleural effusions mildly improved since 08/28/2024 Labs Labs: Laboratory Results - last 24 hr 09/02/24 04:38 WBC 7.4 RBC 3.12 L Hgb 7.8 L Hct 26.9 L MCV 86.2 MCH 25.0 L MCHC 29.0 L RDW 20.8 H Plt Count 250 MPV 13.0 H Immature Gran % (Auto) 2.2 H Neut % (Auto) 79.6 H Lymph % (Auto) 8.2 L [place] % (Auto) 8.7 H Eos % (Auto) 1.2 Baso % (Auto) 0.1 L Lymph # (Auto) 0.61 L [place] # (Auto) 0.7 H Eos # (Auto) 0.1 Baso # (Auto) 0.0 Abs Immat Gran (auto) 0.16 H Absolute Neuts (auto) 5.9 Absolute Nucleated RBC 0.190 H Nucleated RBC % 2.6 H Platelet Estimate Adequate Hypochromasia 2+ Anisocytosis 1+ Schistocytes None seen Sodium 144 Potassium 3.4 Chloride 106 Carbon Dioxide 38 H Anion Gap 0 L BUN 74 H D Creatinine 1.30 H Estim Creat Clear Calc 35 Estimated GFR 40 L Glucose 91 Calcium 9.2 Magnesium 1.5 L Total Bilirubin 0.4 AST 15 ALT 10 Alkaline Phosphatase 82 Total Protein 6.0 L Albumin 2.5 L
--- NOTE | 2024-09-02 17:55 | PC.NURSE ---
This patient, Monica Rangel, was transferred to [[id number] ] on 09/02/24 at 1755. Personal belongings sent with patient. Report given to [VIVIAN Lopez @ [phone] ]. Appropriate documentation sent with patient. , Elder, notified of pt's transfer.
[2024-09-03] VITALS (11 sets, daily range): BP systolic 98–119; BP diastolic 62–71; PULSE 55–72; RESP 16–22; TEMP 36.1–36.7; O2SAT 99–100
[2024-09-03] MEDS: DEXTROSE 5%/0.45% SOD CHL 1,000 ML 75 ML IV CONT ×2 (02:59→21:51)
[2024-09-03] MEDS: metroNIDAZOLE 500 MG TABLET PO (05:18)
[2024-09-03] MEDS: DOXYCYCLINE IV 100 MG in DEXTROSE 5% 100 ML IVPB (05:39)
[2024-09-03] MEDS: LEVOTHYROXINE SODIUM 75 MCG TABLET PO (05:43)
[2024-09-03 06:31] LABS: Basophils Percent Auto 0.3 % (0.2-1.2); Eosinophils Absolute Auto 0.1 K/mm3 (0-0.3); Eosinophils Percent Auto 1.3 % (0-4.4); Hemoglobin 7.6 g/dL (12.0-15.0); Immature Granulocyte Absolute 0.11 K/mm3 (0.00-0.031); Immature Granulocyte Percent A 1.6 % (0-0.5); Immature Platelet Fraction Pct 11.7 % (0.9-11.2); Lymphocytes Absolute Auto 0.62 K/mm3 (0.9-3.2); Lymphocytes Percent Auto 9.1 % (18.3-44.2); Mean Corpuscular HGB Conc 29.2 g/dl (32-36); Mean Corpuscular Hemoglobin 25.6 pg (26-34); Mean Corpuscular Volume 87.5 fl (80-100); Mean Platelet Volume 13.5 fl (7.4-10.4); Monocytes Absolute Auto 0.7 K/mm3 (0.1-0.6); Monocytes Percent Auto 10.3 % (2.6-8.5); Neutrophils Absolute Auto 5.3 K/mm3 (1.3-6.7); Neutrophils Percent Auto 77.4 % (45.5-73.1); Nucleated Red Blood Cells Perc 1.2 % (0.0-0.2); Platelet Count Result 247 k/mm3 (150-375); Red Blood Count 2.97 M/mm3 (4.2-5.4); Red Cell Distribution Width 20.8 % (11.5-14.5); White Blood Count 6.8 K/mm3 (4.5-10.0)
[2024-09-03 06:52] LABS: Alanine Aminotransferase 10 U/L (6-35); Albumin Level 2.8 g/dL (3.5-5.1); Alkaline Phosphatase 87 U/L (38-126); Anion Gap 3 mmol/L (4-12); Aspartate Amino Transferase 15 U/L (14-36); Bilirubin,Total 0.4 mg/dL (0.2-1.3); Blood Urea Nitrogen 57 mg/dL (7-17); Calcium 9.2 mg/dL (8.4-10.2); Carbon Dioxide 37 mmol/L (22-30); Chloride 106 mmol/L (98-107); Estimated CRCL calculation 35 ml/min; Estimated Glomerular Filt Rate 40; Glucose 93 mg/dL (65-110); Potassium 3.9 mmol/L (3.4-5.0); Sodium 146 mmol/L (137-145)
[2024-09-03 08:56] LABS: Platelet Estimate Adequate (Adequate)
[2024-09-03 08:57] LABS: Anisocytosis 2+; Ovalocytes 1+
[2024-09-03 08:58] LABS: Hypochromasia 1+; Schistocytes None Seen
[2024-09-03] MEDS: AMIODARONE HCL 200 MG TABLET PO ×2 (10:09→17:33)
[2024-09-03] MEDS: droNABinol (*CRX) 2.5 MG CAPSULE 10 MG PO ×2 (10:09→17:34)
[2024-09-03] MEDS: guaiFENesin 12 HR 600 MG TABCR PO (10:09)
[2024-09-03] MEDS: ASPIRIN 325 MG TABLET PO (10:09)
[2024-09-03] MEDS: MIDODRINE HCL 10 MG TABLET PO ×2 (10:09→17:22)
[2024-09-03] MEDS: EPOETIN ALFA-EPBX 10,000 UNITS/ML VIAL 10000 UNITS SUB-Q (10:10)
[2024-09-03] MEDS: allopurinoL 50 MG TABLET PO (10:10)
[2024-09-03] MEDS: HEPARIN SODIUM 5,000 UNITS/ML VIAL 5000 UNITS SUB-Q ×2 (10:10→21:52)
[2024-09-03] MEDS: UMECLIDINIUM BROMIDE 62.5 MCG ELLIPTA 1 PUFF INHALATION (10:55)
--- NOTE | 2024-09-03 11:14 | P.PNNP_ITS ---
Progress Note: A&P Assessment and Plan (1) Chronic kidney disease, stage 4 (severe): Code(s): N18.4 - Chronic kidney disease, stage 4 (severe) Status: Chronic Assessment and Plan: * baseline creatinine runs ~ 1.7 - 2.2mg/dl * at baseline currently if not better (although was elevated to 2.6mg/dl on admission) * lower creatinine also likely a manifestation of bed bound status/immobilization as well holding diuretics/cardiac medications along with poor oral intake * based on outpatient evaluation, thought to be secondary to previous HTN and chronic prerenal azotemia from her CHF/cardiomyopathy with ongoing need for diuretic therapy (2) Azotemia: Code(s): R79.89 - Other specified abnormal findings of blood chemistry Status: Acute Assessment and Plan: * slow improvement * BUN was quite elevated as noted on admission * suspect multifactorial: * previous steroid use on last hospitalization * use of doxycyline (tetracycline antibiotics have been known to do this) * prerenal factors (volume depletion/diminished oral intake) * ongoing diuretic therapy * inflammation (new infection?) * r/o GI blood loss - hemoccult positive * holding diuretics/Entresto for now * interestingly, BUN did improve with IVF boluses on admission * suspect a possible contributing component to confusion * if this fails to improve with conservative therapy, dialysis is a considera tion... * however, I worry that dialysis may push her to ESRD status * furthermore, per my discussion with her , he is not sure she would want to do dialysis * on gentle IVFs * is this a situation where she is intravascularly dry (due to diminished oral intake) despite outward signs of volume overload? * her previous rising/elevated sodium would support this * on D5 1/2NS IVFs * follow trend of repeat labs (3) Hypernatremia: Code(s): E87.0 - Hyperosmolality and hypernatremia Status: Acute Assessment and Plan: * better with IVFs * this would suggest she is not drinking enough water * s/p D5W IVFs and currently on D5 1/2NS * try to encourage more free water intake * on appetite stimulants * follow trend for now (4) Hypotension: Qualifiers: Hypotension type: hypotension due to hypovolemia Qualified Code(s): E86.1 - Hypovolemia Code(s): I95.9 - Hypotension, unspecified Status: Acute Assessment and Plan: * has a chronic component at baseline * started on midodrine on last hospitalization * midodrine was on hold on re-admission but has been restarted * follow trend of hemodynamics (5) Sepsis: Qualifiers: Acute renal failure type: unspecified Sepsis acute organ dysfunction status: with acute organ dysfunction Sepsis type: sepsis due to unspecified organism Severe sepsis acute organ dysfunction type: acute renal failure Severe sepsis shock status: without septic shock Qualified Code(s): A41.9 - Sepsis, unspecified organism; R65.20 - Severe sepsis without septic shock; N17.9 - Acute kidney failure, unspecified Code(s): A41.9 - Sepsis, unspecified organism Status: Acute Assessment and Plan: * concern noted by low BP, elevated inflammatory markers, and elevated WBC * known LE and sacral wounds present * on empiric antibiotics * follow hemodynamics (6) Metabolic encephalopathy: Code(s): G93.41 - Metabolic encephalopathy Status: Acute Assessment and Plan: * due to uremia/azotemia +/- infection (?) * seems better now (but continues to fluctuate) * CT of head negative for any acute findings * follow mentation (7) Anemia: Code(s): D64.9 - Anemia, unspecified Status: Acute Assessment and Plan: * as noted * anemia studies with iron deficiency * on IGNACIA (Retacrit) * follow trend of H/H (8) Cardiomyopathy: Qualifiers: Cardiomyopathy type: ischemic Qualified Code(s): I25.5 - Ischemic cardiomyopathy Code(s): I42.9 - Cardiomyopathy, unspecified Status: Acute Assessment and Plan: * known history * however. recent echo with improved EF to 55% * follow volume status closely * Cardiology following (9) Ulcer of left heel: Code(s): L97.429 - Non-pressure chronic ulcer of left heel and midfoot with unspecified severity Status: Acute Assessment and Plan: * s/p intervention on last hospitalization * General Surgery following * no intervention needed at this time * local wound care Will continue to follow Subjective Date/time seen: 09/03/24 11:14 Interval history: Follow-up for chronic kidney disease. No real significant change noted at this time -- appetite/oral intake remains poor despite all interventions to date; family to occur today to discuss goals of therapy/plan of care given patient's refusal for multiple interventions to date. Exam Narrative: General: elderly but WD/WN female in NAD Heart: normal S1 and S2; no rub Lungs: coarse breath sounds; particularly at bases Abdomen: soft, nontender, nondistended, positive bowel sounds Extremities: no cyanosis or clubbing; trace - 1+ edema Skin: left foot dressings in place Objective Data Vital Signs Vital Signs: Vital Signs Temp Pulse Resp BP Pulse Ox 09/03/24 10:10 63 09/03/24 04:00 63 09/03/24 00:00 68 09/02/24 20:00 67 09/03/24 05:44 98.1 F 62 22 H 98/71 L 100 09/02/24 22:00 97.0 F L 75 16 95/54 L 95 09/02/24 18:23 96.4 F L 94 18 115/62 100 Intake/Output Intake/Output: Intake & Output 09/01/24 09/01/24 09/02/24 09/03/24 00:59 23:59 23:59 23:59 Intake Total 1700 1000 Output Total Balance 1700 1000 Meds/Results Medications: Active Medications Generic Name Dose Route Start Last Admin Trade Name Freq PRN Reason Stop Dose Admin Acetaminophen 650 mg 08/27/24 21:31 08/28/24 23:47 Acetaminophen 325 Mg Tablet PO 650 mg Q6H PRN Administration Mild Pain (1-3) or Fever Allopurinol 50 mg 08/26/24 09:00 09/03/24 10:10 Allopurinol 50 Mg Tablet PO 50 mg Q48H MADELINE Administration Amiodarone HCl 200 mg 09/01/24 09:00 09/03/24 10:09 Amiodarone Hcl 200 Mg Tablet PO 200 mg BID MADELINE Administration Amoxicillin/Clavulanate Potassium 1 tablet 09/04/24 09:00 Amoxicillin/Clavulanate K 875-125 Mg Tab PO 09/09/24 21:01 Q12HR MADELINE Aspirin 325 mg 08/26/24 09:00 09/03/24 10:09 Aspirin 325 Mg Tablet PO 325 mg DAILY MADELINE Administration Collagenase 1 applic 08/26/24 09:00 09/02/24 15:00 Collagenase Oint 30 Gm Tube TOPICAL 1 applic QAM MADELINE Administration Doxycycline Hyclate 100 mg 09/03/24 21:00 Doxycycline Hyclate 100 Mg Tablet PO 09/04/24 21:01 Q12HR MADELINE Dronabinol 10 mg 08/31/24 17:10 09/03/24 10:09 Dronabinol (*Crx) 2.5 Mg Capsule PO 10 mg BID MADELINE Administration Epoetin Crispin-epbx 10,000 units 08/29/24 09:00 09/03/24 10:10 Epoetin Crispin-Epbx 10,000 Units/Ml Vial SUB-Q 10,000 units TUTHSA@09 MADELINE Administration Heparin Sodium (Porcine) 5,000 units 08/26/24 09:00 09/03/24 10:10 Heparin Sodium 5,000 Units/Ml Vial SUB-Q 5,000 units Q12HR MADELINE Administration Dextrose/Sodium Chloride 1,000 mls @ 75 mls/hr 08/31/24 17:15 09/03/24 02:59 Dextrose 5% Sodium Chloride 0.45% IV CONT 75 mls/hr .[id number] MADELINE Administration Levothyroxine Sodium 75 mcg 08/26/24 06:30 09/03/24 05:43 Levothyroxine Sodium 75 Mcg Tablet PO 75 mcg DAILY@0630 MADELINE Administration Midodrine 10 mg 08/26/24 09:00 09/03/24 10:09 Midodrine Hcl 10 Mg Tablet PO 10 mg TID MADELINE Administration Miscellaneous Information 1 each 09/01/24 09:00 Mix Ivs In D5w If Possible XX 10/01/24 08:59 DAILY MADELINE Umeclidinium [place] 1 puff 08/26/24 08:00 09/03/24 10:55 Umeclidinium [place] 62.5 Mcg Ellipta INHALATION 1 puff DAILYRT MADELINE Administration Radiology Results: ITS Impressions Foot X-Ray 08/25/24 18:30 IMPRESSION: Very prominent soft tissue ulcer at the posterior heel, with sug gestion of calcaneal exposure Soft tissue swelling Prominent osteopenia; this may obscure fracture or bone destruction. If there is concern for osteomyelitis, consider three-phase radionuclide bone scan. Tibia/Fibula X-Ray 08/25/24 18:35 IMPRESSION: Osteopenia Soft tissue swelling Arterial calcifications Head CT 08/25/24 18:43 IMPRESSION: Cerebral atherosclerosis and chronic small vessel ischemic changes of the cerebral white matter Small chronic right frontal probable cerebrovascular accident No acute intracranial finding or hemorrhage Chest CT 08/29/24 11:08 IMPRESSION: 1. Groundglass opacities in right middle lobe and anterior segment right upper lobe, consistent with mild pulmonary edema versus atypical pneumonia. 2. Small pleural effusions. Chest X-Ray 09/01/24 15:29 IMPRESSION: Cardiomegaly, congestive heart failure and pulmonary interstitial edema, small pleural effusions mildly improved since 08/28/2024 Labs Labs: Laboratory Tests 09/03/24 06:15 09/03/24 06:15 Calcium 9.2 Magnesium 2.0 Total Bilirubin 0.4 AST 15 ALT 10 Alkaline Phosphatase 87 Total Protein 6.0 L Albumin 2.8 L
--- NOTE | 2024-09-03 16:54 | P.PNIM_ITS ---
Progress Note: A&P Assessment and Plan (1) Sepsis: Qualifiers: Sepsis type: sepsis due to unspecified organism Sepsis acute organ dysfunction status: with acute organ dysfunction Severe sepsis acute organ dysfunction type: acute renal failure Acute renal failure type: unspecified Severe sepsis shock status: without septic shock Qualified Code(s): A41.9 - Sepsis, unspecified organism; R65.20 - Severe sepsis without septic shock; N17.9 - Acute kidney failure, unspecified Code(s): A41.9 - Sepsis, unspecified organism Status: Acute Assessment and Plan: The patient's hypotension could be strictly cardiac in nature versus hypovolemia but cannot rule out source of infection or sepsis. * Patient received cefepime Flagyl and vancomycin in the ER to treat for possible infected foot wound. Will switch antibiotic to Ceftriaxone 2 gm IVPB daily, change Flagyl to oral, and stop Vancomycin. * Patient was noted to have mild elevation in white count and does have some chronic wounds but they do not visually a appear to be acutely infected but given her condition this cannot completely be ruled out especially in the setting of acute increasing ESR and CRP. * She is not febrile. Blood cultures no growth to date. Procalcitonin 2.3. * BP remains stable * WBC improved from 12.3>10.7>10.2>9.7 (2) Metabolic encephalopathy: Code(s): G93.41 - Metabolic encephalopathy Status: Acute Assessment and Plan: * Likely due to uremia/azotemia with markedly elevated BUN above baseline. However cannot rule out some component of encephalopathy due to acute infection. resolved (3) Acute on chronic renal failure: Qualifiers: Acute renal failure type: unspecified Chronic kidney disease stage: stage 4 (severe) Qualified Code(s): N17.9 - Acute kidney failure, unspecified; N18.4 - Chronic kidney disease, stage 4 (severe) Code(s): N17.9 - Acute kidney failure, unspecified; N18.9 - Chronic kidney disease, unspecified Status: Acute Assessment and Plan: Most likely multifactorial. It is certainly component of hypovolemia decreased fluid intake given the patient's clinical appearance. Patient is also on diuretic therapy and has some prerenal component due to acute on chronic hypotension. * Patient's BUN has increased markedly in this is less likely causing up component of her decreased oral intake and or confusion due to uremia. Will hold nephrotoxic medications including Entresto, Bumex and metolazone. * BUN/CR 115/1.6 on am labs * Consult Nephrology for further recommendations. Baseline Cr runs approximately 1.7-2.2 BUN 74, Cr 1.3 Nephrology following and noted patient does not need dialysis at this time (4) Hypokalemia: Code(s): E87.6 - Hypokalemia Status: Acute Assessment and Plan: resolved monitor and replace accordingly (5) Hypotension: Qualifiers: Hypotension type: hypotension due to hypovolemia Qualified Code(s): E86.1 - Hypovolemia Code(s): I95.9 - Hypotension, unspecified Status: Acute Assessment and Plan: The patient has some component of chronic hypotension with cardiology notes mentioning patient had prior asymptomatic hypotension with systolic blood pressures in the 90s. * BP remains stable * Midodrine 10 mg PO TID * Encourage PO intake. Can continue Midodrine for now. continue holding Entresto, Bumex, Metolazone for now. Cardiology input appreciated (6) Cardiomyopathy: Qualifiers: Cardiomyopathy type: ischemic Qualified Code(s): I25.5 - Ischemic cardiomyopathy Code(s): I42.9 - Cardiomyopathy, unspecified Status: Acute Assessment and Plan: * Patient's chest x-ray appears similar to prior. * After receiving 30 mL/kilos fluid bolus patient's oxygen requirement did go up from her baseline 1 L up to 3 L. the patient's BNP is markedly elevated compared to prior values. Wondering if recent initiation of midodrine may have contributed to to an acute decompensation. * The patient had recent echocardiogram earlier this month demonstrated EF that improved to 55%. With some right-sided ventricular enlargement and expected valvular abnormalities given the patient's history. * Hold Entresto,Bumex, or metolazone without discussion with both Nephrology and Cardiology. cardiology following (7) Decubitus ulcer of sacral area: Qualifiers: Pressure injury stage: unspecified pressure injury stage Qualified Code(s): L89.159 - Pressure ulcer of sacral region, unspecified stage Code(s): L89.159 - Pressure ulcer of sacral region, unspecified stage Status: Acute Assessment and Plan: * Wound Care consult. * Antifungal barrier cream. * Turn q 2. * Surgery following in case intervention needs done. * Chad 1 pack BID, encourage PO intake. (8) Ulcer of left heel: Code(s): L97.429 - Non-pressure chronic ulcer of left heel and midfoot with unspecified severity Status: Acute Assessment and Plan: * Santyl to wound bed to promote healing. * Waffle boots. * Surgery following in case intervention needs done. * Chad 1 pack BID, encourage PO intake. (9) Peripheral artery disease: Code(s): I73.9 - Peripheral vascular disease, unspecified Status: Acute Assessment and Plan: ABIs during her last hospitalization showed moderately decreased ABIs consistent with arterial occlusive disease. This can contribute to poor healing with her lower extremity ulcers. cardiology evaluated and noted most likely outpatient intervention (10) Elevated troponin: Code(s): R79.89 - Other specified abnormal findings of blood chemistry Status: Acute Assessment and Plan: * Trop 0.617> 0.633>0.185 likely demand from sepsis trending down cardiology on board Plan Iron deficiency anemia r/o GI bleed hb 7.7, isat 9 Venofer 1000/1000 FOBT pending Gi eval noted, endoscopy on hold awaiting patient to be stable for procedure monitor h and h GI following Possible Pneumonia CT Chest showed possible Atypical pneumonia Doxycycline will be completed on 09/04 monitor FTT/protein energy malnutrition appetite and oral intake improving On Dronabinol Patient still not eating, and refuses Tube feeding dietitian following patient stated she would eat if she ordered her breakfast with her food choice, however she still did not eat and still declined tube feeding Consulted acute care nurse for hospice/palliative care discussion contiue D5/NS for now Paroxysmal Afib with RVR Continue Amiodarone per cardiology Not on Anticoagulation at home due GI bleed issues and s/p left atrial appendage ligation monitor cards following Hypernatremia Na 146 Continue d5w/NS adjust fluids accordingly DVT prophylaxis on Sq heparin Discussed care plan with and patient at bedside Follow up with hospice/palliative care discussion Subjective Date/time seen: 09/03/24 16:54 Interval history: Patient reports tired. No acute events reported. Patient started on Augmentin for 7 days. Patient will complete doxycycline tomorrow. Review of Systems Review of Systems: All systems reviewed & are unremarkable except as noted in HPI and below ROS unobtainable: Yes unobtainable due to mental status Exam Narrative: General: female in no acute respiratory distress who is nontoxic appearing, lyin g semi recumbent in bed. HEENT: Normocephalic. Atraumatic. Extraocular movement intact. Sclera clear and anicteric. No facial asymmetry. Chest: Lungs are coarse to auscultation bilaterally. No wheezes or crackles. Remains on 2L NC. CV: Heart was regular rate and rhythm. S1-S2. No murmurs, gallops, or rubs. Abd: Abdomen was soft. Nontender. Nondistended. Positive bowel sounds. No organomegaly or masses. Ext: No clubbing, cyanosis, or edema. 2+ DP pulses bilaterally. Neuro: Patient is alert and oriented x4. Cranial nerves 2-12 are intact. Speech is clear. Const: General: comfortable and no acute distress Other: Acutely ill-appearing, obese, appears older than stated age HENMT: Other: Head is normocephalic atraumatic, lips are dry with peeling skin the, mucous membranes are dry, fair dentition but exam limited as the patient only minimally opens her mouth Eyes: Other: Pupils are equal and reactive, marked conjunctival pallor, no scleral icterus Neck: Other: No obvious JVD, large neck circumference, supple Resp: Effort & Inspection: normal respiratory effort Auscultation: clear to auscultation bilaterally Other: Mild tachypnea, accessory muscle use, decreased breath sounds bilaterally most notably at the bases Cardio: Rate: regular rate Rhythm: regular rhythm Other: paced 71 GI: Auscultation: normal bowel sounds Other: Obese, soft, nontender : Other: Melchor catheter in place with 250 mL of dark yellow urine Urinary Catheter: Urinary Catheter: patent and draining (yellow) Skin: General skin exam: wounds noted Wounds: wounds noted Other: surgical evaluation noted today Right lateral lower leg ulcer appears superficial but with 100% of the wound bed dark red/purple and black with mild localized pink discoloration of the skin around the border of the wound. No c repitus, no purulent drainage, and no odor. Unchanged from yesterday. Right heel with a purple deep tissue injury measuring 5 x 6 cm, nonblanchable, all of the overlying skin is intact. Stage IV left heel ulcer measuring 4.5 x 6 x 1 cm with more yellow and mendes slough in about 80% of the wound bed today. No purulent drainage, no crepitus, and no foul odor . Neuro: Speech: normal speech Other: Patient is alert oriented to person, place and year, she is confused as to time and thought the month was August already she is a poor historian regarding recent events and why she was brought to the hospital, speech is slow and clear but only answering in 1-2 word intervals, patient has 5/5 strength on the left dispensing lead and 3/5 strength on the right, patient was unable to pull her feet away from noxious stimuli Extrem: General: pedal edema bilaterally 2+ Other: Patient has chronic wounds 1 of the posterior right lower calf with a slightly larger base than previous but base appears clean no evidence of surrounding erythema (please see nursing documentation for imaging), and black eschar on the left heel dry, no drainage, no surrounding erythema, 1+ pretibial edema bilateral Psych: Mental Status: mental status grossly normal Affect: normal affect Other: Affect flat Objective Data Vital Signs Vital Signs: Vital Signs - 24 hr 09/02/24 18:23 09/02/24 22:00 09/03/24 05:44 Temperature 96.4 F L 97.0 F L 98.1 F Pulse Rate 94 75 62 Respiratory Rate 18 16 22 H Blood Pressure 115/62 95/54 L 98/71 L Pulse Oximetry 100 95 100 09/02/24 20:00 09/03/24 00:00 09/03/24 04:00 Temperature Pulse Rate 67 68 63 Respiratory Rate Blood Pressure Pulse Oximetry 09/03/24 10:10 09/03/24 12:00 09/03/24 14:00 Temperature 97.0 F L Pulse Rate 63 65 69 Respiratory Rate 22 H Blood Pressure 119/62 Pulse Oximetry 99 09/03/24 16:39 Temperature 97.0 F L Pulse Rate 69 Respiratory Rate Blood Pressure 119/62 Pulse Oximetry 99 Intake/Output Intake/Output: Intake & Output 09/01/24 09/01/24 09/02/24 09/03/24 00:59 23:59 23:59 23:59 Intake Total 1700 1000 Output Total Balance 1700 1000 Meds/Results Medications: Active Medications Generic Name Dose Route Start Last Admin Trade Name Freq PRN Reason Stop Dose Admin Acetaminophen 650 mg 08/27/24 21:31 08/28/24 23:47 Acetaminophen 325 Mg Tablet PO 650 mg Q6H PRN Administration Mild Pain (1-3) or Fever Allopurinol 50 mg 08/26/24 09:00 09/03/24 10:10 Allopurinol 50 Mg Tablet PO 50 mg Q48H MADELINE Administration Amiodarone HCl 200 mg 09/01/24 09:00 09/03/24 10:09 Amiodarone Hcl 200 Mg Tablet PO 200 mg BID MADELINE Administration Amoxicillin/Clavulanate Potassium 1 tablet 09/04/24 09:00 Amoxicillin/Clavulanate K 875-125 Mg Tab PO 09/09/24 21:01 Q12HR MADELINE Aspirin 325 mg 08/26/24 09:00 09/03/24 10:09 Aspirin 325 Mg Tablet PO 325 mg DAILY [facility] Administration Collagenase 1 applic 08/26/24 09:00 09/02/24 15:00 Collagenase Oint 30 Gm Tube TOPICAL 1 applic QAM [facility] Administration Doxycycline Hyclate 100 mg 09/03/24 21:00 Doxycycline Hyclate 100 Mg Tablet PO 09/04/24 21:01 Q12HR [facility] Dronabinol 10 mg 08/31/24 17:10 09/03/24 10:09 Dronabinol (*Crx) 2.5 Mg Capsule PO 10 mg BID MADELINE Administration Epoetin Crsipin-epbx 10,000 units 08/29/24 09:00 09/03/24 10:10 Epoetin Crispin-Epbx 10,000 Units/Ml Vial SUB-Q 10,000 units TUTHSA@09 MADELINE Administration Heparin Sodium (Porcine) 5,000 units 08/26/24 09:00 09/03/24 10:10 Heparin Sodium 5,000 Units/Ml Vial SUB-Q 5,000 units Q12HR MADELINE Administration Dextrose/Sodium Chloride 1,000 mls @ 75 mls/hr 08/31/24 17:15 09/03/24 02:59 Dextrose 5% Sodium Chloride 0.45% IV CONT 75 mls/hr .[id number] MADELINE Administration Levothyroxine Sodium 75 mcg 08/26/24 06:30 09/03/24 05:43 Levothyroxine Sodium 75 Mcg Tablet PO 75 mcg DAILY@0630 MADELINE Administration Midodrine 10 mg 08/26/24 09:00 09/03/24 10:09 Midodrine Hcl 10 Mg Tablet PO 10 mg TID MADELINE Administration Miscellaneous Information 1 each 09/01/24 09:00 Mix Ivs In D5w If Possible XX 10/01/24 08:59 DAILY MADELINE Umeclidinium [place] 1 puff 08/26/24 08:00 09/03/24 10:55 Umeclidinium [place] 62.5 Mcg Ellipta INHALATION 1 puff DAILYRT MADELINE Administration Radiology Results: ITS Impressions Foot X-Ray 08/25/24 18:30 IMPRESSION: Very prominent soft tissue ulcer at the posterior heel, with suggestion of calcaneal exposure Soft tissue swelling Prominent osteopenia; this may obscure fracture or bone destruction. If there is concern for osteomyelitis, consider three-phase radionuclide bone scan. Tibia/Fibula X-Ray 08/25/24 18:35 IMPRESSION: Osteopenia Soft tissue swelling Arterial calcifications Head CT 08/25/24 18:43 IMPRESSION: Cerebral atherosclerosis and chronic small vessel ischemic changes of the cerebral white matter Small chronic right frontal probable cerebrovascular accident No acute intracranial finding or hemorrhage Chest CT 08/29/24 11:08 IMPRESSION: 1. Groundglass opacities in right middle lobe and anterior segment right upper lobe, consistent with mild pulmonary edema versus atypical pneumonia. 2. Small pleural effusions. Chest X-Ray 09/01/24 15:29 IMPRESSION: Cardiomegaly, congestive heart failure and pulmonary interstitial edema, small pleural effusions mildly improved since 08/28/2024 Labs Labs: Laboratory Results - last 24 hr 09/03/24 06:15 WBC 6.8 RBC 2.97 L Hgb 7.6 L Hct 26.0 L MCV 87.5 MCH 25.6 L MCHC 29.2 L RDW 20.8 H Plt Count 247 MPV 13.5 H Immature Gran % (Auto) 1.6 H Neut % (Auto) 77.4 H Lymph % (Auto) 9.1 L [place] % (Auto) 10.3 H Eos % (Auto) 1.3 Baso % (Auto) 0.3 Lymph # (Auto) 0.62 L [place] # (Auto) 0.7 H Eos # (Auto) 0.1 Baso # (Auto) 0.0 Abs Immat Gran (auto) 0.11 H Absolute Neuts (auto) 5.3 Absolute Nucleated RBC 0.080 H Nucleated RBC % 1.2 H Platelet Estimate Adequate % Immature Plt Fraction 11.7 H Hypochromasia 1+ Anisocytosis 2+ Ovalocytes 1+ Schistocytes None seen Sodium 146 H Potassium 3.9 Chloride 106 Carbon Dioxide 37 H Anion Gap 3 L BUN 57 H D Creatinine 1.30 H Estim Creat Clear Calc 35 Estimated GFR 40 L Glucose 93 Calcium 9.2 Magnesium 2.0 Total Bilirubin 0.4 AST 15 ALT 10 Alkaline Phosphatase 87 Total Protein 6.0 L Albumin 2.8 L Quality VTE Prophylaxis VTE prophylaxis: pharmacologic ordered (Heparin 5000 units subQ q.12 hours) Hospitalist [facility] Advance Care Plan I have confirmed that the patient's Advanced Care Plan is present, code status is documented, or surrogate decision maker is listed in patient medical record.: Yes Medication Reconciliation I have utilized all available resources to obtain, update and review the patients current medications (includes all prescriptions, OTC, herbals, gogo abis, and nutritional supplements).: Yes
[2024-09-03] MEDS: COLLAGENASE OINT 30 GM TUBE 1 APPLIC TOPICAL (18:00)
[2024-09-04] VITALS (13 sets, daily range): BP systolic 95–112; BP diastolic 49–80; PULSE 50–84; RESP 14–22; TEMP 36–36.2; O2SAT 95–100
[2024-09-04] MEDS: LEVOTHYROXINE SODIUM 75 MCG TABLET PO (05:40)
[2024-09-04 06:11] LABS: Hematocrit 25.7 % (37.0-47.0); Hemoglobin 7.3 g/dL (12.0-15.0); Immature Platelet Fraction Pct 11.3 % (0.9-11.2); Mean Corpuscular HGB Conc 28.4 g/dl (32-36); Mean Corpuscular Hemoglobin 25.3 pg (26-34); Mean Corpuscular Volume 89.2 fl (80-100); Mean Platelet Volume 12.6 fl (7.4-10.4); Platelet Count Result 233 k/mm3 (150-375); Red Blood Count 2.88 M/mm3 (4.2-5.4); Red Cell Distribution Width 21.5 % (11.5-14.5); White Blood Count 6.4 K/mm3 (4.5-10.0)
[2024-09-04 06:38] LABS: Alanine Aminotransferase 9 U/L (6-35); Albumin Level 2.7 g/dL (3.5-5.1); Alkaline Phosphatase 82 U/L (38-126); Anion Gap 0 mmol/L (4-12); Aspartate Amino Transferase 16 U/L (14-36); Bilirubin,Total 0.4 mg/dL (0.2-1.3); Blood Urea Nitrogen 46 mg/dL (7-17); Calcium 9.1 mg/dL (8.4-10.2); Carbon Dioxide 36 mmol/L (22-30); Chloride 107 mmol/L (98-107); Estimated CRCL calculation 38 ml/min; Estimated Glomerular Filt Rate 44; Glucose 88 mg/dL (65-110); Potassium 3.8 mmol/L (3.4-5.0); Sodium 143 mmol/L (137-145)
[2024-09-04] MEDS: UMECLIDINIUM BROMIDE 62.5 MCG ELLIPTA 1 PUFF INHALATION (07:37)
[2024-09-04] MEDS: AMOXICILLIN/CLAVULANATE K 875-125 MG TAB 1 TABLET PO ×2 (09:05→20:42)
[2024-09-04] MEDS: ASPIRIN 325 MG TABLET PO (09:05)
[2024-09-04] MEDS: droNABinol (*CRX) 2.5 MG CAPSULE 10 MG PO ×2 (09:05→16:58)
[2024-09-04] MEDS: HEPARIN SODIUM 5,000 UNITS/ML VIAL 5000 UNITS SUB-Q ×2 (09:06→20:42)
[2024-09-04] MEDS: DOXYCYCLINE HYCLATE 100 MG TABLET PO ×2 (09:06→20:42)
[2024-09-04] MEDS: MIDODRINE HCL 10 MG TABLET PO ×3 (09:06→16:58)
--- NOTE | 2024-09-04 13:39 | P.PNNP_ITS ---
Subjective Date/time seen: 09/04/24 13:39 Objective Data Vital Signs Vital Signs: Vital Signs Temp Pulse Resp BP Pulse Ox O2 Del Method O2 Flow Rate 09/04/24 12:00 97.2 F L 63 18 95/80 L 97 09/04/24 08:00 61 09/04/24 08:00 98 Nasal Cannula 3 09/04/24 09:06 50 L 09/04/24 07:40 52 L 18 09/04/24 07:40 52 L 18 95 Nasal Cannula 3 09/04/24 06:00 96.8 F L 58 L 14 112/49 L 100 09/04/24 04:00 59 L 09/04/24 00:00 61 09/03/24 20:00 58 L 09/03/24 20:00 Room Air 09/03/24 22:00 97.0 F L 55 L 16 113/65 100 09/03/24 17:33 72 Intake/Output Intake/Output: Intake & Output 09/01/24 09/02/24 09/03/24 09/04/24 23:59 23:59 23:59 23:59 Intake Total 1700 2100 75 Output Total Balance 1700 2100 75 Meds/Results Medications: Active Medications Generic Name Dose Route Start Last Admin Trade Name Freq PRN Reason Stop Dose Admin Acetaminophen 650 mg 08/27/24 21:31 08/28/24 23:47 Acetaminophen 325 Mg Tablet PO 650 mg Q6H PRN Administration Mild Pain (1-3) or Fever Allopurinol 50 mg 08/26/24 09:00 09/03/24 10:10 Allopurinol 50 Mg Tablet PO 50 mg Q48H MADELINE Administration Amiodarone HCl 200 mg 09/01/24 09:00 09/04/24 09:06 Amiodarone Hcl 200 Mg Tablet PO Not Given BID MADELINE Amoxicillin/Clavulanate Potassium 1 tablet 09/04/24 09:00 09/04/24 09:05 Amoxicillin/Clavulanate K 875-125 Mg Tab PO 09/09/24 21:01 1 tablet Q12HR MADELINE Administration Aspirin 325 mg 08/26/24 09:00 09/04/24 09:05 Aspirin 325 Mg Tablet PO 325 mg DAILY MADELINE Administration Collagenase 1 applic 08/26/24 09:00 09/03/24 18:00 Collagenase Oint 30 Gm Tube TOPICAL 1 applic QAM MADELINE Administration Doxycycline Hyclate 100 mg 09/03/24 21:00 09/04/24 09:06 Doxycycline Hyclate 100 Mg Tablet PO 09/04/24 21:01 100 mg Q12HR MADELINE Administration Dronabinol 10 mg 08/31/24 17:10 09/04/24 09:05 Dronabinol (*Crx) 2.5 Mg Capsule PO 10 mg BID MADELINE Administration Epoetin [place]-epbx 10,000 units 08/29/24 09:00 09/03/24 10:10 Epoetin [place]-Epbx 10,000 Units/Ml Vial SUB-Q 10,000 units TUTHSA@09 MADELINE Administration Heparin Sodium (Porcine) 5,000 units 08/26/24 09:00 09/04/24 09:06 Heparin Sodium 5,000 Units/Ml Vial SUB-Q 5,000 units Q12HR MADELINE Administration Dextrose/Sodium Chloride 1,000 mls @ 75 mls/hr 08/31/24 17:15 09/03/24 21:51 Dextrose 5% Sodium Chloride 0.45% IV CONT 75 mls/hr .[id number] MADELINE Administration Levothyroxine Sodium 75 mcg 08/26/24 06:30 09/04/24 05:40 Levothyroxine Sodium 75 Mcg Tablet PO 75 mcg DAILY@0630 MADELINE Administration Midodrine 10 mg 08/26/24 09:00 09/04/24 13:03 Midodrine Hcl 10 Mg Tablet PO 10 mg TID MADELINE Administration Miscellaneous Information 1 each 09/01/24 09:00 Mix Ivs In D5w If Possible XX 10/01/24 08:59 DAILY MADELINE Umeclidinium [place] 1 puff 08/26/24 08:00 09/04/24 07:37 Umeclidinium [place] 62.5 Mcg Ellipta INHALATION 1 puff DAILYRT MADELINE Administration Radiology Results: ITS Impressions Foot X-Ray 08/25/24 18:30 IMPRESSION: Very prominent soft tissue ulcer at the posterior heel, with suggestion of calcaneal exposure Soft tissue swelling Prominent osteopenia; this may obscure fracture or bone destruction. If there is concern for osteomyelitis, consider three-phase radionuclide bone scan. Tibia/Fibula X-Ray 08/25/24 18:35 IMPRESSION: Osteopenia Soft tissue swelling Arterial calcifications Head CT 08/25/24 18:43 IMPRESSION: Cerebral atherosclerosis and chronic small vessel ischemic changes of the cerebral white matter Small chronic right frontal probable cerebrovascular accident No acute intracranial finding or hemorrhage Chest CT 08/29/24 11:08 IMPRESSION: 1. Groundglass opacities in right middle lobe and anterior segment right upper lobe, consistent with mild pulmonary edema versus atypical pneumonia. 2. Small pleural effusions. Chest X-Ray 09/01/24 15:29 IMPRESSION: Cardiomegaly, congestive heart failure and pulmonary interstitial edema, small pleural effusions mildly improved since 08/28/2024 Labs Labs: Laboratory Tests 09/04/24 05:39 09/04/24 05:39 09/04/24 05:39 WBC 6.4 RBC 2.88 L Hgb 7.3 L Hct 25.7 L MCV 89.2 MCH 25.3 L MCHC 28.4 L RDW 21.5 H Plt Count 233 MPV 12.6 H % Immature Plt Fraction 11.3 H Sodium 143 Potassium 3.8 Chloride 107 Carbon Dioxide 36 H Anion Gap 0 L BUN 46 H D Creatinine 1.20 H Estim Creat Clear Calc 38 Estimated GFR 44 L Glucose 88 Calcium 9.1 Total Bilirubin 0.4 AST 16 ALT 9 Alkaline Phosphatase 82 Total Protein 6.0 L Albumin 2.7 L
--- NOTE | 2024-09-04 15:11 | PCPTNOTE ---
Patient refused treatment this session. Patient refused lower extremity exercises, bed mobility, and to sit edge of bed. Patient did not give reason why.
--- NOTE | 2024-09-04 16:30 | P.PNIM_ITS ---
Progress Note: A&P Assessment and Plan (1) Sepsis: Qualifiers: Acute renal failure type: unspecified Sepsis acute organ dysfunction status: with acute organ dysfunction Sepsis type: sepsis due to unspecified or ganism Severe sepsis acute organ dysfunction type: acute renal failure Severe sepsis shock status: without septic shock Qualified Code(s): A41.9 - Sepsis, unspecified organism; R65.20 - Severe sepsis without septic shock; N17.9 - Acute kidney failure, unspecified Code(s): A41.9 - Sepsis, unspecified organism Status: Acute Assessment and Plan: The patient's hypotension could be strictly cardiac in nature versus hypovolemia but cannot rule out source of infection or sepsis. * Patient is currently on amoxicillin plan. Received cefepime Flagyl and vancomycin in the ER to treat for possible infected foot wound. * Patient was noted to have mild elevation in white count and does have some chronic wounds but they do not visually a appear to be acutely infected but given her condition this cannot completely be ruled out especially in the setting of acute increasing ESR and CRP. * She is not febrile. Blood cultures no growth to date. Procalcitonin 2.3. * BP remains stable * WBC improved from 12.3>10.7>10.2>9.7 (2) Metabolic encephalopathy: Code(s): G93.41 - Metabolic encephalopathy Status: Acute Assessment and Plan: * Likely due to uremia/azotemia with markedly elevated BUN above baseline. However cannot rule out some component of encephalopathy due to acute infection. resolved (3) Acute on chronic renal failure: Qualifiers: Acute renal failure type: unspecified Chronic kidney disease stage: stage 4 (severe) Qualified Code(s): N17.9 - Acute kidney failure, unspecified; N18.4 - Chronic kidney disease, stage 4 (severe) Code(s): N17.9 - Acute kidney failure, unspecified; N18.9 - Chronic kidney disease, unspecified Status: Acute Assessment and Plan: Most likely multifactorial. It is certainly component of hypovolemia decreased fluid intake given the patient's clinical appearance. Patient is also on diuretic therapy and has some prerenal component due to acute on chronic hypotension. * Patient's BUN has increased markedly in this is less likely causing up component of her decreased oral intake and or confusion due to uremia. Will hold nephrotoxic medications including Entresto, Bumex and metolazone. * BUN/CR 115/1.6 on am labs * Consult Nephrology for further recommendations. Baseline Cr runs approximately 1.7-2.2 BUN 74, Cr 1.3 Nephrology following and noted patient does not need dialysis at this time (4) Hypokalemia: Code(s): E87.6 - Hypokalemia Status: Acute Assessment and Plan: resolved monitor and replace accordingly (5) Hypotension: Qualifiers: Hypotension type: hypotension due to hypovolemia Qualified Code(s): E86.1 - Hypovolemia Code(s): I95.9 - Hypotension, unspecified Status: Acute Assessment and Plan: The patient has some component of chronic hypotension with cardiology notes mentioning patient had prior asymptomatic hypotension with systolic blood pressures in the 90s. * BP remains stable * Midodrine 10 mg PO TID * Encourage PO intake. Can continue Midodrine for now. continue holding Entresto, Bumex, Metolazone for now. Cardiology input appreciated (6) Cardiomyopathy: Qualifiers: Cardiomyopathy type: ischemic Qualified Code(s): I25.5 - Ischemic cardiomyopathy Code(s): I42.9 - Cardiomyopathy, unspecified Status: Acute Assessment and Plan: * Patient's chest x-ray appears similar to prior. * After receiving 30 mL/kilos fluid bolus patient's oxygen requirement did go up from her baseline 1 L up to 3 L. the patient's BNP is markedly elevated compared to prior values. Wondering if recent initiation of midodrine may have contributed to to an acute decompensation. * The patient had recent echocardiogram earlier this month demonstrated EF that improved to 55%. With some right-sided ventricular enlargement and expected valvular abnormalities given the patient's history. * Hold Entresto,Bumex, or metolazone cardiology following (7) Decubitus ulcer of sacral area: Qualifiers: Pressure injury stage: unspecified pressure injury stage Qualified Code(s): L89.159 - Pressure ulcer of sacral region, unspecified stage Code(s): L89.159 - Pressure ulcer of sacral region, unspecified stage Status: Acute Assessment and Plan: * Wound Care consult. * Antifungal barrier cream. * Turn q 2. * Surgery following in case intervention needs done. * Chad 1 pack BID, encourage PO intake. (8) Ulcer of left heel: Code(s): L97.429 - Non-pressure chronic ulcer of left heel and midfoot with unspecified severity Status: Acute Assessment and Plan: * Santyl to wound bed to promote healing. * Waffle boots. * Surgery following in case intervention needs done. * Chad 1 pack BID, encourage PO intake. (9) Peripheral artery disease: Code(s): I73.9 - Peripheral vascular disease, unspecified Status: Acute Assessment and Plan: ABIs during her last hospitalization showed moderately decreased ABIs consistent with arterial occlusive disease. This can contribute to poor healing with her lower extremity ulcers. cardiology evaluated and noted most likely outpatient intervention (10) Elevated troponin: Code(s): R79.89 - Other specified abnormal findings of blood chemistry Status: Acute Assessment and Plan: * Trop 0.617> 0.633>0.185 likely demand from sepsis trending down cardiology on board Plan Iron deficiency anemia r/o GI bleed hb 7.3 Venofer 1000/1000 FOBT positive GI eval noted, possible endoscopy and colonoscopy as OP monitor h and h GI following Possible Pneumonia CT Chest showed possible Atypical pneumonia Doxycycline will be completed on 09/04 monitor FTT/protein energy malnutrition appetite and oral intake improving On Dronabinol Patient still not eating, and refuses Tube feeding dietitian following patient stated she would eat if she ordered her breakfast with her food choice, however she still did not eat and still declined tube feeding Consulted pet care assistant for hospice/palliative care discussion contiue D5/NS for now Paroxysmal Afib with RVR Continue Amiodarone per cardiology Not on Anticoagulation at home due GI bleed issues and s/p left atrial appendage ligation monitor cards following Hypernatremia Na 146 Continue d5w/NS adjust fluids accordingly DVT prophylaxis on Sq heparin Discussed care plan with and patient at bedside Follow up with hospice/palliative care discussion Subjective Date/time seen: 09/04/24 16:30 Interval history: In regards to the anemia, discussed with Gastroenterology. Planning outpatient endoscopy and colonoscopy. In regards to renal insufficiency patient creatinine BUN is improving. Patient also has chronic left heel ulcer which is followed by the surgery. In regards to AF for patient is on amiodarone not on anticoagulation due to the left atrial appendage. Discontinued IV fluids encouraged p.o. fluid. Hold Entresto,Bumex, or metolazone . Pending placement Review of Systems Review of Systems: All systems reviewed & are unremarkable except as noted in HPI and below ROS unobtainable: Yes unobtainable due to mental status Exam Narrative: General: female in no acute respiratory distress who is nontoxic appearing, lying semi recumbent in bed. HEENT: Normocephalic. Atraumatic. Extraocular movement intact. Sclera clear and anicteric. No facial asymmetry. Chest: Lungs are coarse to auscultation bilaterally. No wheezes or crackles. Remains on 2L NC. CV: Heart was regular rate and rhythm. S1-S2. No murmurs, gallops, or rubs. Abd: Abdomen was soft. Nontender. Nondistended. Positive bowel sounds. No organomegaly or masses. Ext: No clubbing, cyanosis, or edema. 2+ DP pulses bilaterally. Neuro: Patient is alert and oriented x4. Cranial nerves 2-12 are intact. Speech is clear. Const: General: comfortable and no acute distress Other: Acutely ill-appearing, obese, appears older than stated age HENMT: Other: Head is normocephalic atraumatic, lips are dry with peeling skin the, mucous membranes are dry, fair dentition but exam limited as the patient only minimally opens her mouth Eyes: Other: Pupils are equal and reactive, marked conjunctival pallor, no scleral icterus Neck: Other: No obvious JVD, large neck circumference, supple Resp: Effort & Inspection: normal respiratory effort Auscultation: clear to auscultation bilaterally Other: Mild tachypnea, accessory muscle use, decreased breath sounds bilaterally most notably at the bases Cardio: Rate: regular rate Rhythm: regular rhythm Other: paced 71 GI: Auscultation: normal bowel sounds Other: Obese, soft, nontender : Other: Melchor catheter in place with 250 mL of dark yellow urine Urinary Catheter: Urinary Catheter: patent and draining (yellow) Skin: General skin exam: wounds noted Wounds: wounds noted Other: surgical evaluation noted today Right lateral lower leg ulcer appears superficial but with 100% of the wound bed dark red/purple and black with mild localized pink discoloration of the skin around the border of the wound. No crepitus, no purulent drainage, and no odor. Unchanged from yesterday. Right heel with a purple deep tissue injury measuring 5 x 6 cm, nonblanchable, all of the overlying skin is intact. Stage IV left heel ulcer measuring 4.5 x 6 x 1 cm with more yellow and mendes slough in about 80% of the wound bed today. No purulent drainage, no crepitus, and no foul odor . Neuro: Speech: normal speech Other: Patient is alert oriented to person, place and year, she is confused as to time and thought the month was August already she is a poor historian regarding recent events and why she was brought to the hospital, speech is slow and clear but only answering in 1-2 word intervals, patient has 5/5 strength on the left integration project manager and 3/5 strength on the right, patient was unable to pull her feet away from noxious stimuli Extrem: General: pedal edema bilaterally 2+ Other: Patient has chronic wounds 1 of the posterior right lower calf with a slightly larger base than previous but base appears clean no evidence of surrounding erythema (please see nursing documentation for imaging), and black eschar on the left heel dry, no drainage, no surrounding erythema, 1+ pretibial edema bilateral Psych: Mental Status: mental status grossly normal Affect: normal affect Other: Affect flat Objective Data Vital Signs Vital Signs: Vital Signs - 24 hr 09/03/24 17:33 09/03/24 22:00 09/03/24 20:00 Temperature 97.0 F L Pulse Rate 72 55 L Respiratory Rate 16 Blood Pressure 113/65 Pulse Oximetry 100 Oxygen Delivery Room Air Oxygen Flow Rate 09/03/24 20:00 09/04/24 00:00 09/04/24 04:00 Temperature Pulse Rate 58 L 61 59 L Respiratory Rate Blood Pressure Pulse Oximetry Oxygen Delivery Oxygen Flow Rate 09/04/24 06:00 09/04/24 07:40 09/04/24 07:40 Temperature 96.8 F L Pulse Rate 58 L 52 L 52 L Respiratory Rate 14 18 18 Blood Pressure 112/49 L Pulse Oximetry 100 95 Oxygen Delivery Nasal Cannula Oxygen Flow Rate 3 09/04/24 09:06 09/04/24 08:00 09/04/24 08:00 Temperature Pulse Rate 50 L 61 Respiratory Rate Blood Pressure Pulse Oximetry 98 Oxygen Delivery Nasal Cannula Oxygen Flow Rate 3 09/04/24 12:00 09/04/24 14:00 09/03/24 16:39 Temperature 97.2 F L 97.0 F L Pulse Rate 63 63 69 Respiratory Rate 18 Blood Pressure 95/80 L 119/62 Pulse Oximetry 97 99 Oxygen Delivery Oxygen Flow Rate Intake/Output Intake/Output: Intake & Output 09/01/24 09/02/24 09/03/24 09/04/24 23:59 23:59 23:59 23:59 Intake Total 1700 2100 75 Output Total Balance 1700 2100 75 Meds/Results Medications: Active Medications Generic Name Dose Route Start Last Admin Trade Name Freq PRN Reason Stop Dose Admin Acetaminophen 650 mg 08/27/24 21:31 08/28/24 23:47 Acetaminophen 325 Mg Tablet PO 650 mg Q6H PRN Administration Mild Pain (1-3) or Fever Allopurinol 50 mg 08/26/24 09:00 09/03/24 10:10 Allopurinol 50 Mg Tablet PO 50 mg Q48H MADELINE Administration Amiodarone HCl 200 mg 09/01/24 09:00 09/04/24 09:06 Amiodarone Hcl 200 Mg Tablet PO Not Given BID MADELINE Amoxicillin/Clavulanate Potassium 1 tablet 09/04/24 09:00 09/04/24 09:05 Amoxicillin/Clavulanate K 875-125 Mg Tab PO 09/09/24 21:01 1 tablet Q12HR MADELINE Administration Aspirin 325 mg 08/26/24 09:00 09/04/24 09:05 Aspirin 325 Mg Tablet PO 325 mg DAILY [facility] Administration Collagenase 1 applic 08/26/24 09:00 09/03/24 18:00 Collagenase Oint 30 Gm Tube TOPICAL 1 applic QAM [facility] Administration Doxycycline Hyclate 100 mg 09/03/24 21:00 09/04/24 09:06 Doxycycline Hyclate 100 Mg Tablet PO 09/04/24 21:01 100 mg Q12HR MADELINE Administration Dronabinol 10 mg 08/31/24 17:10 09/04/24 09:05 Dronabinol (*Crx) 2.5 Mg Capsule PO 10 mg BID MADELINE Administration Epoetin Crispin-epbx 10,000 units 08/29/24 09:00 09/03/24 10:10 Epoetin Crispin-Epbx 10,000 Units/Ml Vial SUB-Q 10,000 units TUTHSA@09 MADELINE Administration Heparin Sodium (Porcine) 5,000 units 08/26/24 09:00 09/04/24 09:06 Heparin Sodium 5,000 Units/Ml Vial SUB-Q 5,000 units Q12HR MADELINE Administration Dextrose/Sodium Chloride 1,000 mls @ 75 mls/hr 08/31/24 17:15 09/03/24 21:51 Dextrose 5% Sodium Chloride 0.45% IV CONT 75 mls/hr .[id number] MADELINE Administration Levothyroxine Sodium 75 mcg 08/26/24 06:30 09/04/24 05:40 Levothyroxine Sodium 75 Mcg Tablet PO 75 mcg DAILY@0630 MADELINE Administration Midodrine 10 mg 08/26/24 09:00 09/04/24 13:03 Midodrine Hcl 10 Mg Tablet PO 10 mg TID MADELINE Administration Miscellaneous Information 1 each 09/01/24 09:00 Mix Ivs In D5w If Possible XX 10/01/24 08:59 DAILY MADELINE Umeclidinium [place] 1 puff 08/26/24 08:00 09/04/24 07:37 Umeclidinium [place] 62.5 Mcg Ellipta INHALATION 1 puff DAILYRT MADELINE Administration Radiology Results: ITS Impressions Foot X-Ray 08/25/24 18:30 IMPRESSION: Very prominent soft tissue ulcer at the posterior heel, with suggestion of calcaneal exposure Soft tissue swelling Prominent osteopenia; this may obscure fracture or bone destruction. If there is concern for osteomyelitis, consider three-phase radionuclide bone scan. Tibia/Fibula X-Ray 08/25/24 18:35 IMPRESSION: Osteopenia Soft tissue swelling Arterial calcifications Head CT 08/25/24 18:43 IMPRESSION: Cerebral atherosclerosis and chronic small vessel ischemic changes of the cerebral white matter Small chronic right frontal probable cerebrovascular accident No acute intracranial finding or hemorrhage Chest CT 08/29/24 11:08 IMPRESSION: 1. Groundglass opacities in right middle lobe and anterior segment right upper lobe, consistent with mild pulmonary edema versus atypical pneumonia. 2. Small pleural effusions. Chest X-Ray 09/01/24 15:29 IMPRESSION: Cardiomegaly, congestive heart failure and pulmonary interstitial edema, small pleural effusions mildly improved since 08/28/2024 Labs Labs: Laboratory Results - last 24 hr 09/04/24 05:39 WBC 6.4 RBC 2.88 L Hgb 7.3 L Hct 25.7 L MCV 89.2 MCH 25.3 L MCHC 28.4 L RDW 21.5 H Plt Count 233 MPV 12.6 H % Immature Plt Fraction 11.3 H Sodium 143 Potassium 3.8 Chloride 107 Carbon Dioxide 36 H Anion Gap 0 L BUN 46 H D Creatinine 1.20 H Estim Creat Clear Calc 38 Estimated GFR 44 L Glucose 88 Calcium 9.1 Total Bilirubin 0.4 AST 16 ALT 9 Alkaline Phosphatase 82 Total Protein 6.0 L Albumin 2.7 L Quality VTE Prophylaxis VTE prophylaxis: pharmacologic ordered (Heparin 5000 units subQ q.12 hours) Hospitalist MIPS Advance Care Plan I have confirmed that the patient's Advanced Care Plan is present, code status is documented, or surrogate decision maker is listed in patient medical record.: Yes Medication Reconciliation I have utilized all available resources to obtain, update and review the patients current medications (includes all prescriptions, OTC, herbals, cannabis, and nutritional supplements).: Yes
[2024-09-04] MEDS: AMIODARONE HCL 200 MG TABLET PO (16:58)
[2024-09-04] MEDS: COLLAGENASE OINT 30 GM TUBE 1 APPLIC TOPICAL (17:45)
[2024-09-05] VITALS (9 sets, daily range): BP systolic 102–130; BP diastolic 30–91; PULSE 64–116; RESP 16–26; TEMP 35.9–36.2; O2SAT 93–100; BMI 10.0
[2024-09-05] MEDS: LEVOTHYROXINE SODIUM 75 MCG TABLET PO (05:45)
[2024-09-05 06:19] LABS: Hematocrit 29.2 % (37.0-47.0); Hemoglobin 8.1 g/dL (12.0-15.0); Mean Corpuscular HGB Conc 27.7 g/dl (32-36); Mean Corpuscular Hemoglobin 24.8 pg (26-34); Mean Corpuscular Volume 89.6 fl (80-100); Mean Platelet Volume 12.6 fl (7.4-10.4); Platelet Count Result 259 k/mm3 (150-375); Red Blood Count 3.26 M/mm3 (4.2-5.4); Red Cell Distribution Width 22.3 % (11.5-14.5); White Blood Count 6.5 K/mm3 (4.5-10.0)
[2024-09-05 06:35] LABS: Alanine Aminotransferase 11 U/L (6-35); Albumin Level 2.8 g/dL (3.5-5.1); Alkaline Phosphatase 98 U/L (38-126); Anion Gap 1 mmol/L (4-12); Aspartate Amino Transferase 16 U/L (14-36); Bilirubin,Total 0.6 mg/dL (0.2-1.3); Blood Urea Nitrogen 36 mg/dL (7-17); Calcium 9.4 mg/dL (8.4-10.2); Carbon Dioxide 37 mmol/L (22-30); Chloride 108 mmol/L (98-107); Estimated CRCL calculation 38 ml/min; Estimated Glomerular Filt Rate 44; Glucose 81 mg/dL (65-110); Potassium 3.9 mmol/L (3.4-5.0); Sodium 146 mmol/L (137-145)
[2024-09-05] MEDS: AMOXICILLIN/CLAVULANATE K 875-125 MG TAB 1 TABLET PO (10:05)
--- NOTE | 2024-09-05 10:07 | PCNFU ---
Nutrition Follow-Up Complete: Increased nutrient needs related to altered skin integrity as evidenced by noted pressure injuries Goal:PO intake 75% of meals and supplements pt not meeting goal, minimal intake, refusing meals Pt current nutrition is Heart healthy, soft and bite sized level 6, ROBERT BID. Nutrition recommendation: encourage po intake as much as possible Last recorded weight is 86.5 kg. Bowel Motility: +BM 09/05 Labs Reviewed: Hgb:8.1, HCT:29.2, Alb:2.8, NA:146, GFR:44, BUN:36, Cr:1.2 Meds Noted: KCL Skin: DTPI to both heels, pressure unstagable to lower leg Additional Notes: Pt continues on the same diet, minimal intake despite encouragement and offering preferences. Tube feeds were discussed as well as palliative care. Encourage po intake as much as possible monitor intake, wt, labs, skin. Follow up in 5 days.
--- NOTE | 2024-09-05 14:25 | P.PNNP_ITS ---
Progress Note: A&P Assessment and Plan (1) Chronic kidney disease, stage 4 (severe): Code(s): N18.4 - Chronic kidney disease, stage 4 (severe) Status: Chronic Assessment and Plan: * baseline creatinine runs ~ 1.7 - 2.2mg/dl * at baseline currently if not better (although was elevated to 2.6mg/dl on admission) * lower creatinine also likely a manifestation of bed bound status/immobilization as well holding diuretics/cardiac medications along with poor oral intake * based on outpatient evaluation, thought to be secondary to previous HTN and chronic prerenal azotemia from her CHF/cardiomyopathy with ongoing need for diuretic therapy (2) Azotemia: Code(s): R79.89 - Other specified abnormal findings of blood chemistry Status: Acute Assessment and Plan: * slow improvement * BUN was quite elevated as noted on admission * suspect multifactorial: * previous steroid use on last hospitalization * use of doxycyline (tetracycline antibiotics have been known to do this) * prerenal factors (volume depletion/diminished oral intake) * ongoing diuretic therapy * inflammation (new infection?) * r/o GI blood loss - hemoccult positive * holding diuretics/Entresto for now * interestingly, BUN did improve with IVF boluses on admission * suspect a possible contributing component to confusion * if this fails to improve with conservative therapy, dialysis is a considera tion... * however, I worry that dialysis may push her to ESRD status * furthermore, per my discussion with her , he is not sure she would want to do dialysis * on gentle IVFs * is this a situation where she is intravascularly dry (due to diminished oral intake) despite outward signs of volume overload? * her previous rising/elevated sodium would support this * on D5 1/2NS IVFs * follow trend of repeat labs (3) Hypernatremia: Code(s): E87.0 - Hyperosmolality and hypernatremia Status: Acute Assessment and Plan: * better with IVFs * this would suggest she is not drinking enough water * s/p D5W IVFs and currently on D5 1/2NS * try to encourage more free water intake * on appetite stimulants * follow trend for now (4) Hypotension: Qualifiers: Hypotension type: hypotension due to hypovolemia Qualified Code(s): E86.1 - Hypovolemia Code(s): I95.9 - Hypotension, unspecified Status: Acute Assessment and Plan: * has a chronic component at baseline * started on midodrine on last hospitalization * midodrine was on hold on re-admission but has been restarted * follow trend of hemodynamics (5) Sepsis: Qualifiers: Sepsis type: sepsis due to unspecified organism Sepsis acute organ dysfunction status: with acute organ dysfunction Severe sepsis acute organ dysfunction type: acute renal failure Acute renal failure type: unspecified Severe sepsis shock status: without septic shock Qualified Code(s): A41.9 - Sepsis, unspecified organism; R65.20 - Severe sepsis without septic shock; N17.9 - Acute kidney failure, unspecified Code(s): A41.9 - Sepsis, unspecified organism Status: Acute Assessment and Plan: * concern noted by low BP, elevated inflammatory markers, and elevated WBC * known LE and sacral wounds present * on empiric antibiotics * follow hemodynamics (6) Metabolic encephalopathy: Code(s): G93.41 - Metabolic encephalopathy Status: Acute Assessment and Plan: * due to uremia/azotemia +/- infection (?) * seems better now (but continues to fluctuate) * CT of head negative for any acute findings * follow mentation (7) Anemia: Code(s): D64.9 - Anemia, unspecified Status: Acute Assessment and Plan: * as noted * anemia studies with iron deficiency * on IGNACIA (Retacrit) * follow trend of H/H (8) Cardiomyopathy: Qualifiers: Cardiomyopathy type: ischemic Qualified Code(s): I25.5 - Ischemic cardiomyopathy Code(s): I42.9 - Cardiomyopathy, unspecified Status: Acute Assessment and Plan: * known history * however. recent echo with improved EF to 55% * follow volume status closely * Cardiology following (9) Ulcer of left heel: Code(s): L97.429 - Non-pressure chronic ulcer of left heel and midfoot with unspecified severity Status: Acute Assessment and Plan: * s/p intervention on last hospitalization * General Surgery following * no intervention needed at this time * local wound care Will continue to follow Subjective Date/time seen: 09/05/24 14:25 Interval history: Follow-up for chronic kidney disease. Patient continues to show no motivation for improvement -- not willing to work with therapy and oral intake remains quite poor; she initially refused palliativ e care/hospice but according to nursing, is now illing to consider this option and family meeting with hospice is scheduled for tomorrow; no other issues/events overnight or earlier this morning. Exam Narrative: General: elderly but WD/WN female in NAD Heart: normal S1 and S2; no rub Lungs: coarse breath sounds; particularly at bases Abdomen: soft, nontender, nondistended, positive bowel sounds Extremities: no cyanosis or clubbing; trace - 1+ edema Skin: left foot dressings present Objective Data Vital Signs Vital Signs: Vital Signs Temp Pulse Resp BP Pulse Ox O2 Del Method O2 Flow Rate 09/05/24 14:00 97.1 F L 116 H 22 H 110/60 93 09/05/24 12:00 79 09/05/24 10:00 70 09/05/24 10:00 96 Nasal Cannula 3 09/05/24 07:35 96 Nasal Cannula 3 09/05/24 05:25 96.6 F L 64 16 130/91 H 100 09/05/24 04:00 70 09/05/24 00:00 67 09/04/24 20:00 84 09/04/24 21:40 97.0 F L 83 22 H 112/80 95 09/04/24 20:29 95 Nasal Cannula 3 Intake/Output Intake/Output: Intake & Output 09/02/24 09/03/24 09/04/24 09/05/24 23:59 23:59 23:59 23:59 Intake Total 1700 2100 75 25 Balance 1700 2100 75 25 Meds/Results Medications: Active Medications Generic Name Dose Route Start Last Admin Trade Name Freq PRN Reason Stop Dose Admin Acetaminophen 650 mg 08/27/24 21:31 08/28/24 23:47 Acetaminophen 325 Mg Tablet PO 650 mg Q6H PRN Administration Mild Pain (1-3) or Fever Allopurinol 50 mg 08/26/24 09:00 09/05/24 17:05 Allopurinol 50 Mg Tablet PO Not Given Q48H [facility] Amiodarone HCl 200 mg 09/01/24 09:00 09/05/24 17:07 Amiodarone Hcl 200 Mg Tablet PO Not Given BID [facility] Amoxicillin/Clavulanate Potassium 1 tablet 09/04/24 09:00 09/05/24 10:05 Amoxicillin/Clavulanate K 875-125 Mg Tab PO 09/09/24 21:01 1 tablet Q12HR [facility] Administration Aspirin 325 mg 08/26/24 09:00 09/05/24 17:06 Aspirin 325 Mg Tablet PO Not Given DAILY [facility] Collagenase 1 applic 08/26/24 09:00 09/05/24 17:05 Collagenase Oint 30 Gm Tube TOPICAL Not Given QAM [facility] Epoetin Crispin-epbx 10,000 units 08/29/24 09:00 09/05/24 17:06 Epoetin Crispin-Epbx 10,000 Units/Ml Vial SUB-Q Not Given TUTHSA@09 [facility] Heparin Sodium (Porcine) 5,000 units 08/26/24 09:00 09/05/24 17:06 Heparin Sodium 5,000 Units/Ml Vial SUB-Q Not Given Q12HR [facility] Levothyroxine Sodium 75 mcg 08/26/24 06:30 09/05/24 05:45 Levothyroxine Sodium 75 Mcg Tablet PO 75 mcg DAILY@0630 [facility] Administration Midodrine 5 mg 09/05/24 13:00 09/05/24 17:07 Midodrine Hcl 2.5 Mg Tablet PO Not Given TID [facility] Umeclidinium [place] 1 puff 08/26/24 08:00 09/05/24 07:34 Umeclidinium [place] 62.5 Mcg Ellipta [facility] Results: ITS Impressions Foot X-Ray 08/25/24 18:30 IMPRESSION: Very prominent soft tissue ulcer at the posterior heel, with siddiqui ggestion of calcaneal exposure Soft tissue swelling Prominent osteopenia; this may obscure fracture or bone destruction. If there is concern for osteomyelitis, consider three-phase radionuclide bone scan. Tibia/Fibula X-Ray 08/25/24 18:35 IMPRESSION: Osteopenia Soft tissue swelling Arterial calcifications Head CT 08/25/24 18:43 IMPRESSION: Cerebral atherosclerosis and chronic small vessel ischemic changes of the cerebral white matter Small chronic right frontal probable cerebrovascular accident No acute intracranial finding or hemorrhage Chest CT 08/29/24 11:08 IMPRESSION: 1. Groundglass opacities in right middle lobe and anterior segment right upper lobe, consistent with mild pulmonary edema versus atypical pneumonia. 2. Small pleural effusions. Chest X-Ray 09/01/24 15:29 IMPRESSION: Cardiomegaly, congestive heart failure and pulmonary interstitial edema, small pleural effusions mildly improved since 08/28/2024 Labs Labs: Laboratory Tests 09/05/24 06:10 09/05/24 06:10 Calcium 9.4 Total Bilirubin 0.6 AST 16 ALT 11 Alkaline Phosphatase 98 Total Protein 6.0 L Albumin 2.8 L
--- NOTE | 2024-09-05 14:25 | PM.PNNEP ---
Progress Note: A&P Assessment and Plan (1) Chronic kidney disease, stage 4 (severe): Code(s): N18.4 - Chronic kidney disease, stage 4 (severe) Status: Chronic Assessment and Plan: baseline creatinine runs ~ 1.7 - 2.2mg/dl at baseline currently if not better (although was elevated to 2.6mg/dl on admission) lower creatinine also likely a manifestation of bed bound status/immobilization as well holding diuretics/cardiac medications along with poor oral intake based on outpatient evaluation, thought to be secondary to previous HTN and chronic prerenal azotemia from her CHF/cardiomyopathy with ongoing need for diuretic therapy (2) Azotemia: Code(s): R79.89 - Other specified abnormal findings of blood chemistry Status: Acute Assessment and Plan: slow improvement BUN was quite elevated as noted on admission suspect multifactorial: previous steroid use on last hospitalization use of doxycyline (tetracycline antibiotics have been known to do this) prerenal factors (volume depletion/diminished oral intake) ongoing diuretic therapy inflammation (new infection?) r/o GI blood loss - hemoccult positive holding diuretics/Entresto for now interestingly, BUN did improve with IVF boluses on admission suspect a possible contributing component to confusion if this fails to improve with conservative therapy, dialysis is a consideration... however, I worry that dialysis may push her to ESRD status furthermore, per my discussion with her , he is not sure she would want to do dialysis on gentle IVFs is this a situation where she is intravascularly dry (due to diminished oral intake) despite outward signs of volume overload? her previous rising/elevated sodium would support this on D5 1/2NS IVFs follow trend of repeat labs (3) Hypernatremia: Code(s): E87.0 - Hyperosmolality and hypernatremia Status: Acute Assessment and Plan: better with IVFs this would suggest she is not drinking enough water s/p D5W IVFs and currently on D5 1/2NS try to encourage more free water intake on appetite stimulants follow trend for now (4) Hypotension: Qualifiers: Hypotension type: hypotension due to hypovolemia Qualified Code(s): E86.1 - Hypovolemia Code(s): I95.9 - Hypotension, unspecified Status: Acute Assessment and Plan: has a chronic component at baseline started on midodrine on last hospitalization midodrine was on hold on re-admission but has been restarted follow trend of hemodynamics (5) Sepsis: Qualifiers: Sepsis type: sepsis due to unspecified organism Sepsis acute organ dysfunction status: with acute organ dysfunction Severe sepsis acute organ dysfunction type: acute renal failure Acute renal failure type: unspecified Severe sepsis shock status: without septic shock Qualified Code(s): A41.9 - Sepsis, unspecified organism; R65.20 - Severe sepsis without septic shock; N17.9 - Acute kidney failure, unspecified Code(s): A41.9 - Sepsis, unspecified organism Status: Acute Assessment and Plan: concern noted by low BP, elevated inflammatory markers, and elevated WBC known LE and sacral wounds present on empiric antibiotics follow hemodynamics (6) Metabolic encephalopathy: Code(s): G93.41 - Metabolic encephalopathy Status: Acute Assessment and Plan: due to uremia/azotemia +/- infection (?) seems better now (but continues to fluctuate) CT of head negative for any acute findings follow mentation (7) Anemia: Code(s): D64.9 - Anemia, unspecified Status: Acute Assessment and Plan: as noted anemia studies with iron deficiency on IGNACIA (Retacrit) follow trend of H/H (8) Cardiomyopathy: Qualifiers: Cardiomyopathy type: ischemic Qualified Code(s): I25.5 - Ischemic cardiomyopathy Code(s): I42.9 - Cardiomyopathy, unspecified Status: Acute Assessment and Plan: known history however. recent echo with improved EF to 55% follow volume status closely Cardiology following (9) Ulcer of left heel: Code(s): L97.429 - Non-pressure chronic ulcer of left heel and midfoot with unspecified severity Status: Acute Assessment and Plan: s/p intervention on last hospitalization General Surgery following no intervention needed at this time local wound care Will continue to follow Subjective Date/time seen: 09/05/24 14:25 Interval history: Follow-up for chronic kidney disease. Patient continues to show no motivation for improvement -- not willing to work with therapy and oral intake remains quite poor; she initially refused palliative care/hospice but according to nursing, is now illing to consider this option and family meeting with hospice is scheduled for tomorrow; no other issues/events overnight or earlier this morning. Exam Narrative: General: elderly but WD/WN female in NAD Heart: normal S1 and S2; no rub Lungs: coarse breath sounds; particularly at bases Abdomen: soft, nontender, nondistended, positive bowel sounds Extremities: no cyanosis or clubbing; trace - 1+ edema Skin: left foot dressings present Objective Data Vital Signs Vital Signs: Vital Signs Temp Pulse Resp BP Pulse Ox O2 Del Method O2 Flow Rate 09/05/24 14:00 97.1 F L 116 H 22 H 110/60 93 09/05/24 12:00 79 09/05/24 10:00 70 09/05/24 10:00 96 Nasal Cannula 3 09/05/24 07:35 96 Nasal Cannula 3 09/05/24 05:25 96.6 F L 64 16 130/91 H 100 09/05/24 04:00 70 09/05/24 00:00 67 09/04/24 20:00 84 09/04/24 21:40 97.0 F L 83 22 H 112/80 95 09/04/24 20:29 95 Nasal Cannula 3 Intake/Output Intake/Output: Intake & Output 09/02/24 09/03/24 09/04/24 09/05/24 23:59 23:59 23:59 23:59 Intake Total 1700 2100 75 25 Balance 1700 2100 75 25 Meds/Results Medications: Active Medications Generic Name Dose Route Start Last Admin Trade Name Freq PRN Reason Stop Dose Admin Acetaminophen 650 mg 08/27/24 21:31 08/28/24 23:47 Acetaminophen 325 Mg Tablet PO 650 mg Q6H PRN Administration Mild Pain (1-3) or Fever Allopurinol 50 mg 08/26/24 09:00 09/05/24 17:05 Allopurinol 50 Mg Tablet PO Not Given Q48H [facility] Amiodarone HCl 200 mg 09/01/24 09:00 09/05/24 17:07 Amiodarone Hcl 200 Mg Tablet PO Not Given BID [facility] Amoxicillin/Clavulanate Potassium 1 tablet 09/04/24 09:00 09/05/24 10:05 Amoxicillin/Clavulanate K 875-125 Mg Tab PO 09/09/24 21:01 1 tablet Q12HR [facility] Administration Aspirin 325 mg 08/26/24 09:00 09/05/24 17:06 Aspirin 325 Mg Tablet PO Not Given DAILY [facility] Collagenase 1 applic 08/26/24 09:00 09/05/24 17:05 Collagenase Oint 30 Gm Tube TOPICAL Not Given QAM [facility] Epoetin Crispin-epbx 10,000 units 08/29/24 09:00 09/05/24 17:06 Epoetin Crispin-Epbx 10,000 Units/Ml Vial SUB-Q Not Given TUTHSA@09 [facility] Heparin Sodium (Porcine) 5,000 units 08/26/24 09:00 09/05/24 17:06 Heparin Sodium 5,000 Units/Ml Vial SUB-Q Not Given Q12HR [facility] Levothyroxine Sodium 75 mcg 08/26/24 06:30 09/05/24 05:45 Levothyroxine Sodium 75 Mcg Tablet PO 75 mcg DAILY@0630 [facility] Administration Midodrine 5 mg 09/05/24 13:00 09/05/24 17:07 Midodrine Hcl 2.5 Mg Tablet PO Not Given TID [facility] Umeclidinium [place] 1 puff 08/26/24 08:00 09/05/24 07:34 Umeclidinium [place] 62.5 Mcg Ellipta INHALATION Not Given DAILYRT [facility] Radiology Results: ITS Impressions Foot X-Ray 08/25/24 18:30 IMPRESSION: Very prominent soft tissue ulcer at the posterior heel, with suggestion of calcaneal exposure Soft tissue swelling Prominent osteopenia; this may obscure fracture or bone destruction. If there is concern for osteomyelitis, consider three-phase radionuclide bone scan. Tibia/Fibula X-Ray 08/25/24 18:35 IMPRESSION: Osteopenia Soft tissue swelling Arterial calcifications Head CT 08/25/24 18:43 IMPRESSION: Cerebral atherosclerosis and chronic small vessel ischemic changes of the cerebral white matter Small chronic right frontal probable cerebrovascular accident No acute intracranial finding or hemorrhage Chest CT 08/29/24 11:08 IMPRESSION: 1. Groundglass opacities in right middle lobe and anterior segment right upper lobe, consistent with mild pulmonary edema versus atypical pneumonia. 2. Small pleural effusions. Chest X-Ray 09/01/24 15:29 IMPRESSION: Cardiomegaly, congestive heart failure and pulmonary interstitial edema, small pleural effusions mildly improved since 08/28/2024 Labs Labs: Laboratory Tests 09/05/24 06:10 09/05/24 06:10 Calcium 9.4 Total Bilirubin 0.6 AST 16 ALT 11 Alkaline Phosphatase 98 Total Protein 6.0 L Albumin 2.8 L
--- NOTE | 2024-09-05 14:26 | P.PNIM_ITS ---
Progress Note: A&P Assessment and Plan (1) Sepsis: Qualifiers: Acute renal failure type: unspecified Sepsis acute organ dysfunction status: with acute organ dysfunction Sepsis type: sepsis due to unspecified or ganism Severe sepsis acute organ dysfunction type: acute renal failure Severe sepsis shock status: without septic shock Qualified Code(s): A41.9 - Sepsis, unspecified organism; R65.20 - Severe sepsis without septic shock; N17.9 - Acute kidney failure, unspecified Code(s): A41.9 - Sepsis, unspecified organism Status: Acute Assessment and Plan: The patient's hypotension could be strictly cardiac in nature versus hypovolemia but cannot rule out source of infection or sepsis. * Patient is currently on amoxicillin plan. Received cefepime Flagyl and vancomycin in the ER to treat for possible infected foot wound. * Patient was noted to have mild elevation in white count and does have some chronic wounds but they do not visually a appear to be acutely infected but given her condition this cannot completely be ruled out especially in the setting of acute increasing ESR and CRP. * She is not febrile. Blood cultures no growth to date. Procalcitonin 2.3. * BP remains stable * WBC improved from 12.3>10.7>10.2>9.7 (2) Metabolic encephalopathy: Code(s): G93.41 - Metabolic encephalopathy Status: Acute Assessment and Plan: * Likely due to uremia/azotemia with markedly elevated BUN above baseline. However cannot rule out some component of encephalopathy due to acute infection. resolved (3) Acute on chronic renal failure: Qualifiers: Acute renal failure type: unspecified Chronic kidney disease stage: stage 4 (severe) Qualified Code(s): N17.9 - Acute kidney failure, unspecified; N18.4 - Chronic kidney disease, stage 4 (severe) Code(s): N17.9 - Acute kidney failure, unspecified; N18.9 - Chronic kidney disease, unspecified Status: Acute Assessment and Plan: Most likely multifactorial. It is certainly component of hypovolemia decreased fluid intake given the patient's clinical appearance. Patient is also on diuretic therapy and has some prerenal component due to acute on chronic hypotension. * Patient's BUN has increased markedly in this is less likely causing up component of her decreased oral intake and or confusion due to uremia. Will hold nephrotoxic medications including Entresto, Bumex and metolazone. * BUN/CR 115/1.6 on am labs * Consult Nephrology for further recommendations. Baseline Cr runs approximately 1.7-2.2 BUN 74, Cr 1.3 Nephrology following and noted patient does not need dialysis at this time (4) Hypokalemia: Code(s): E87.6 - Hypokalemia Status: Acute Assessment and Plan: resolved monitor and replace accordingly (5) Hypotension: Qualifiers: Hypotension type: hypotension due to hypovolemia Qualified Code(s): E86.1 - Hypovolemia Code(s): I95.9 - Hypotension, unspecified Status: Acute Assessment and Plan: The patient has some component of chronic hypotension with cardiology notes mentioning patient had prior asymptomatic hypotension with systolic blood pressures in the 90s. * BP remains stable * Midodrine 10 mg PO TID * Encourage PO intake. Can continue Midodrine for now. continue holding Entresto, Bumex, Metolazone for now. Cardiology input appreciated (6) Cardiomyopathy: Qualifiers: Cardiomyopathy type: ischemic Qualified Code(s): I25.5 - Ischemic cardiomyopathy Code(s): I42.9 - Cardiomyopathy, unspecified Status: Acute Assessment and Plan: * Patient's chest x-ray appears similar to prior. * After receiving 30 mL/kilos fluid bolus patient's oxygen requirement did go up from her baseline 1 L up to 3 L. the patient's BNP is markedly elevated compared to prior values. Wondering if recent initiation of midodrine may have contributed to to an acute decompensation. * The patient had recent echocardiogram earlier this month demonstrated EF that improved to 55%. With some right-sided ventricular enlargement and expected valvular abnormalities given the patient's history. * Hold Entresto,Bumex, or metolazone cardiology following (7) Decubitus ulcer of sacral area: Qualifiers: Pressure injury stage: unspecified pressure injury stage Qualified Code(s): L89.159 - Pressure ulcer of sacral region, unspecified stage Code(s): L89.159 - Pressure ulcer of sacral region, unspecified stage Status: Acute Assessment and Plan: * Wound Care consult. * Antifungal barrier cream. * Turn q 2. * Surgery following in case intervention needs done. * Chad 1 pack BID, encourage PO intake. (8) Ulcer of left heel: Code(s): L97.429 - Non-pressure chronic ulcer of left heel and midfoot with unspecified severity Status: Acute Assessment and Plan: * Santyl to wound bed to promote healing. * Waffle boots. * Surgery following in case intervention needs done. * Chad 1 pack BID, encourage PO intake. (9) Peripheral artery disease: Code(s): I73.9 - Peripheral vascular disease, unspecified Status: Acute Assessment and Plan: ABIs during her last hospitalization showed moderately decreased ABIs consistent with arterial occlusive disease. This can contribute to poor healing with her lower extremity ulcers. cardiology evaluated and noted most likely outpatient intervention (10) Elevated troponin: Code(s): R79.89 - Other specified abnormal findings of blood chemistry Status: Acute Assessment and Plan: * Trop 0.617> 0.633>0.185 likely demand from sepsis trending down cardiology on board Plan Iron deficiency anemia r/o GI bleed hb 8.1 Venofer 1000/1000 FOBT positive GI eval noted, possible endoscopy and colonoscopy as OP monitor h and h GI following Possible Pneumonia CT Chest showed possible Atypical pneumonia Doxycycline will be completed on 09/04 monitor FTT/protein energy malnutrition appetite and oral intake improving On Dronabinol Patient still not eating, and refuses Tube feeding dietitian following patient stated she would eat if she ordered her breakfast with her food choice, however she still did not eat and still declined tube feeding Consulted memory care program resident for hospice/palliative care discussion contiue D5/NS for now Paroxysmal Afib with RVR Continue Amiodarone per cardiology Not on Anticoagulation at home due GI bleed issues and s/p left atrial appendage ligation monitor cards following Hypernatremia Na 146 Continue d5w/NS adjust fluids accordingly DVT prophylaxis on Sq heparin Discussed care plan with and patient at bedside Follow up with hospice/palliative care discussion Subjective Date/time seen: 09/05/24 14:26 Interval history: Summary: In regards to the anemia, discussed with Gastroenterology. Planning outpatient endoscopy and colonoscopy. In regards to renal insufficiency patient creatinine BUN is improving. Patient also has chronic left heel ulcer which is followed by the surgery. In regards to AF for patient is on amiodarone not on anticoagulation due to the left atrial appendage. Discontinued IV fluids encouraged p.o. fluid. Hold Entresto,Bumex, or metolazone . 09/05 : Discussed with cardiology and will continue to hold Entresto, Bumex, metolazone.The above medications can be held and continued after following up with Cardiology in a week upon discharge. Today discussed with her about intermission coordinator goals. Patient is not motivated in doing PT . In my observation past 2 days patient lays in bed and unwilling to talk to me. Patient also needs formal psychiatric evaluation as OP to screen for depression. After the long conversation with her ,patient who was listening to the whole conversation, agrees to talk to hospice .Both of them will make a decision on hospice after the speaking with hospice physician. As mentioned patient has multiple co-morbid conditions. Review of Systems Review of Systems: All systems reviewed & are unremarkable except as noted in HPI and below ROS unobtainable: Yes unobtainable due to mental status Exam Narrative: General: female in no acute respiratory distress who is nontoxic appearing, lying semi recumbent in bed. HEENT: Normocephalic. Atraumatic. Extraocular movement intact. Sclera clear and anicteric. No facial asymmetry. Chest: Lungs are coarse to auscultation bilaterally. No wheezes or crackles. Remains on 2L NC. CV: Heart was regular rate and rhythm. S1-S2. No murmurs, gallops, or rubs. Abd: Abdomen was soft. Nontender. Nondistended. Positive bowel sounds. No organomegaly or masses. Ext: No clubbing, cyanosis, or edema. 2+ DP pulses bilaterally. Neuro: Patient is alert and oriented x4. Cranial nerves 2-12 are intact. Speech is clear. Const: General: comfortable and no acute distress Other: Acutely ill-appearing, obese, appears older than stated age HENMT: Other: Head is normocephalic atraumatic, lips are dry with peeling skin the, mucous membranes are dry, fair dentition but exam limited as the patient only minimally opens her mouth Eyes: Other: Pupils are equal and reactive, marked conjunctival pallor, no scleral icterus Neck: Other: No obvious JVD, large neck circumference, supple Resp: Effort & Inspection: normal respiratory effort Auscultation: clear to auscultation bilaterally Other: Mild tachypnea, accessory muscle use, decreased breath sounds bilaterally most notably at the bases Cardio: Rate: regular rate Rhythm: regular rhythm Other: paced 71 GI: Auscultation: normal bowel sounds Other: Obese, soft, nontender : Other: Melchor catheter in place with 250 mL of dark yellow urine Urinary Catheter: Urinary Catheter: patent and draining (yellow) Skin: General skin exam: wounds noted Wounds: wounds noted Other: surgical evaluation noted today Right lateral lower leg ulcer appears superficial but with 100% of the wound bed dark red/purple and black with mild localized pink discoloration of the skin around the border of the wound. No crepitus, no purulent drainage, and no odor. Unchanged from yesterday. Right heel with a purple deep tissue injury measuring 5 x 6 cm, nonblanchable, all of the overlying skin is intact. Stage IV left heel ulcer measuring 4.5 x 6 x 1 cm with more yellow and mendes slough in about 80% of the wound bed today. No purulent drainage, no crepitus, and no foul odor . Neuro: Speech: normal speech Other: Patient is alert oriented to person, place and year, she is confused as to time and thought the month was August already she is a poor historian regarding recent events and why she was brought to the hospital, speech is slow and clear but only answering in 1-2 word intervals, patient has 5/5 strength on the left housekeeping aid and 3/5 strength on the right, patient was unable to pull her feet away from noxious stimuli Extrem: General: pedal edema bilaterally 2+ Other: Patient has chronic wounds 1 of the posterior right lower calf with a slightly larger base than previous but base appears clean no evidence of surrounding erythema (please see nursing documentation for imaging), and black eschar on the left heel dry, no drainage, no surrounding erythema, 1+ pretibial edema bilateral Psych: Mental Status: mental status grossly normal Affect: normal affect Other: Affect flat Objective Data Vital Signs Vital Signs: Vital Signs - 24 hr 09/04/24 16:58 09/04/24 16:00 09/04/24 20:29 Temperature Pulse Rate 68 63 Respiratory Rate Blood Pressure Pulse Oximetry 95 Oxygen Delivery Nasal Cannula Oxygen Flow Rate 3 Fraction of Inspired Oxygen 09/04/24 21:40 09/04/24 20:00 09/05/24 00:00 Temperature 97.0 F L Pulse Rate 83 84 67 Respiratory Rate 22 H Blood Pressure 112/80 Pulse Oximetry 95 Oxygen Delivery Oxygen Flow Rate Fraction of Inspired Oxygen 09/05/24 04:00 09/05/24 05:25 09/05/24 07:35 Temperature 96.6 F L Pulse Rate 70 64 Respiratory Rate 16 Blood Pressure 130/91 H Pulse Oximetry 100 96 Oxygen Delivery Nasal Cannula Oxygen Flow Rate 3 Fraction of Inspired Oxygen 32 09/05/24 10:05 09/05/24 10:00 09/05/24 10:00 Temperature Pulse Rate 64 70 Respiratory Rate Blood Pressure Pulse Oximetry 96 Oxygen Delivery Nasal Cannula Oxygen Flow Rate 3 Fraction of Inspired Oxygen 09/05/24 12:00 Temperature Pulse Rate 79 Respiratory Rate Blood Pressure Pulse Oximetry Oxygen Delivery Oxygen Flow Rate Fraction of Inspired Oxygen Intake/Output Intake/Output: Intake & Output 09/02/24 09/03/24 09/04/24 09/05/24 23:59 23:59 23:59 23:59 Intake Total 1700 2100 75 25 Balance 1700 2100 75 25 Meds/Results Medications: Active Medications Generic Name Dose Route Start Last Admin Trade Name Freq PRN Reason Stop Dose Admin Acetaminophen 650 mg 08/27/24 21:31 08/28/24 23:47 Acetaminophen 325 Mg Tablet PO 650 mg Q6H PRN Administration Mild Pain (1-3) or Fever Allopurinol 50 mg 08/26/24 09:00 09/05/24 10:05 Allopurinol 50 Mg Tablet PO 50 mg Q48H MADELINE Administration Amiodarone HCl 200 mg 09/01/24 09:00 09/05/24 10:05 Amiodarone Hcl 200 Mg Tablet PO 200 mg BID MADELINE Administration Amoxicillin/Clavulanate Potassium 1 tablet 09/04/24 09:00 09/05/24 10:05 Amoxicillin/Clavulanate K 875-125 Mg Tab PO 09/09/24 21:01 1 tablet Q12HR MADELINE Administration Aspirin 325 mg 08/26/24 09:00 09/05/24 10:05 Aspirin 325 Mg Tablet PO 325 mg DAILY MADELINE Administration Collagenase 1 applic 08/26/24 09:00 09/04/24 17:45 Collagenase Oint 30 Gm Tube TOPICAL 1 applic QAM MADELINE Administration Dronabinol 10 mg 08/31/24 17:10 09/05/24 10:04 Dronabinol (*Crx) 2.5 Mg Capsule PO 10 mg BID MADELINE Administration Epoetin Crispin-epbx 10,000 units 08/29/24 09:00 09/05/24 10:08 Epoetin Crispin-Epbx 10,000 Units/Ml Vial SUB-Q 10,000 units TUTHSA@09 [facility] Administration Heparin Sodium (Porcine) 5,000 units 08/26/24 09:00 09/05/24 10:04 Heparin Sodium 5,000 Units/Ml Vial SUB-Q 5,000 units Q12HR MADELINE Administration Dextrose/Sodium Chloride 1,000 mls @ 75 mls/hr 08/31/24 17:15 09/03/24 21:51 Dextrose 5% Sodium Chloride 0.45% IV CONT 75 mls/hr .[id number] MADELINE Administration Levothyroxine Sodium 75 mcg 08/26/24 06:30 09/05/24 05:45 Levothyroxine Sodium 75 Mcg Tablet PO 75 mcg DAILY@0630 [facility] Administration Midodrine 5 mg 09/05/24 13:00 Midodrine Hcl 2.5 Mg Tablet PO TID [facility] Umeclidinium Vader 1 puff 08/26/24 08:00 09/05/24 07:34 Umeclidinium Vader 62.5 Mcg Ellipta INHALATION Not Given DAILYRT [facility] Radiology Results: ITS Impressions Foot X-Ray 08/25/24 18:30 IMPRESSION: Very prominent soft tissue ulcer at the posterior heel, with suggestion of calcaneal exposure Soft tissue swelling Prominent osteopenia; this may obscure fracture or bone destruction. If there is concern for osteomyelitis, consider three-phase radionuclide bone scan. Tibia/Fibula X-Ray 08/25/24 18:35 IMPRESSION: Osteopenia Soft tissue swelling Arterial calcifications Head CT 08/25/24 18:43 IMPRESSION: Cerebral atherosclerosis and chronic small vessel ischemic changes of the cerebral white matter Small chronic right frontal probable cerebrovascular accident No acute intracranial finding or hemorrhage Chest CT 08/29/24 11:08 IMPRESSION: 1. Groundglass opacities in right middle lobe and anterior segment right upper lobe, consistent with mild pulmonary edema versus atypical pneumonia. 2. Small pleural effusions. Chest X-Ray 09/01/24 15:29 IMPRESSION: Cardiomegaly, congestive heart failure and pulmonary interstitial edema, small pleural effusions mildly improved since 08/28/2024 Labs Labs: Laboratory Results - last 24 hr 09/05/24 06:10 WBC 6.5 RBC 3.26 L Hgb 8.1 L Hct 29.2 L MCV 89.6 MCH 24.8 L MCHC 27.7 L RDW 22.3 H Plt Count 259 MPV 12.6 H Sodium 146 H Potassium 3.9 Chloride 108 H Carbon Dioxide 37 H Anion Gap 1 L BUN 36 H D Creatinine 1.20 H Estim Creat Clear Calc 38 Estimated GFR 44 L Glucose 81 Calcium 9.4 Total Bilirubin 0.6 AST 16 ALT 11 Alkaline Phosphatase 98 Total Protein 6.0 L Albumin 2.8 L Quality VTE Prophylaxis VTE prophylaxis: pharmacologic ordered (Heparin 5000 units subQ q.12 hours) Hospitalist MIPS Advance Care Plan I have confirmed that the patient's Advanced Care Plan is present, code status is documented, or surrogate decision maker is listed in patient medical record.: Yes Medication Reconciliation I have utilized all available resources to obtain, update and review the patients current medications (includes all prescriptions, OTC, herbals, cannabis, and nutritional supplements).: Yes
--- NOTE | 2024-09-05 21:14 | PC.NURSE ---
Pt refusing to wear her nasal cannula. Nursing staff attempted to put nasal cannula back on multiple times but pt was consistently refusing to wear it- shaking her head or putting her hand in front of her face. I called Adiel (pt's son) and spoke with him about the issue and asked how he would like for us to handle it. Pt is to have a hospice consult tomorrow and this was also discussed with Adiel. Adiel said pt was doing this earlier when he was present and he understands that she takes it off frequently. Adiel said that he would like for us to continue trying to place nasal cannula on but understands if she doesnt want to wear it. I went in and talked to the patient letting her know I spoke with her son and that he would like for her to wear it. After 5 minutes of talking with the pt she allowed me to put the nasal cannula on her. Patient's RN, Aurelio, was notified of oxygen being placed back on the patient.
[2024-09-06 06:00] VITALS: PULSE 88; RESP 28; TEMP 37.2; O2SAT 91
[2024-09-06 07:11] LABS: Hematocrit 29.3 % (37.0-47.0); Hemoglobin 8.3 g/dL (12.0-15.0); Immature Platelet Fraction Pct 10.3 % (0.9-11.2); Mean Corpuscular HGB Conc 28.3 g/dl (32-36); Mean Corpuscular Hemoglobin 25.3 pg (26-34); Mean Corpuscular Volume 89.3 fl (80-100); Platelet Count Result 261 k/mm3 (150-375); Red Blood Count 3.28 M/mm3 (4.2-5.4); Red Cell Distribution Width 23.1 % (11.5-14.5); White Blood Count 6.8 K/mm3 (4.5-10.0)
[2024-09-06 07:18] LABS: Alanine Aminotransferase 13 U/L (6-35); Alkaline Phosphatase 103 U/L (38-126); Anion Gap 3 mmol/L (4-12); Aspartate Amino Transferase 26 U/L (14-36); Bilirubin,Total 0.7 mg/dL (0.2-1.3); Blood Urea Nitrogen 35 mg/dL (7-17); Calcium 9.8 mg/dL (8.4-10.2); Carbon Dioxide 34 mmol/L (22-30); Chloride 110 mmol/L (98-107); Estimated CRCL calculation 32 ml/min; Estimated Glomerular Filt Rate 37; Glucose 81 mg/dL (65-110); Potassium 4.6 mmol/L (3.4-5.0); Sodium 147 mmol/L (137-145)
[2024-09-06 09:13] VITALS: PULSE 83; RESP 20; O2SAT 95
[2024-09-06 10:56] VITALS: O2SAT 95
[2024-09-06 14:00] VITALS: BP 120/52; PULSE 88; RESP 16; TEMP 36.7; O2SAT 100
--- NOTE | 2024-09-06 14:05 | P.PNIM_ITS ---
Progress Note: A&P Assessment and Plan (1) Sepsis: Qualifiers: Acute renal failure type: unspecified Sepsis acute organ dysfunction status: with acute organ dysfunction Sepsis type: sepsis due to unspecified or ganism Severe sepsis acute organ dysfunction type: acute renal failure Severe sepsis shock status: without septic shock Qualified Code(s): A41.9 - Sepsis, unspecified organism; R65.20 - Severe sepsis without septic shock; N17.9 - Acute kidney failure, unspecified Code(s): A41.9 - Sepsis, unspecified organism Status: Acute Assessment and Plan: The patient's hypotension could be strictly cardiac in nature versus hypovolemia but cannot rule out source of infection or sepsis. * Patient is currently on amoxicillin plan. Received cefepime Flagyl and vancomycin in the ER to treat for possible infected foot wound. * Patient was noted to have mild elevation in white count and does have some chronic wounds but they do not visually a appear to be acutely infected but given her condition this cannot completely be ruled out especially in the setting of acute increasing ESR and CRP. * She is not febrile. Blood cultures no growth to date. Procalcitonin 2.3. * BP remains stable * WBC improved from 12.3>10.7>10.2>9.7 (2) Metabolic encephalopathy: Code(s): G93.41 - Metabolic encephalopathy Status: Acute Assessment and Plan: * Likely due to uremia/azotemia with markedly elevated BUN above baseline. However cannot rule out some component of encephalopathy due to acute infection. resolved (3) Acute on chronic renal failure: Qualifiers: Acute renal failure type: unspecified Chronic kidney disease stage: stage 4 (severe) Qualified Code(s): N17.9 - Acute kidney failure, unspecified; N18.4 - Chronic kidney disease, stage 4 (severe) Code(s): N17.9 - Acute kidney failure, unspecified; N18.9 - Chronic kidney disease, unspecified Status: Acute Assessment and Plan: Most likely multifactorial. It is certainly component of hypovolemia decreased fluid intake given the patient's clinical appearance. Patient is also on diuretic therapy and has some prerenal component due to acute on chronic hypotension. * Patient's BUN has increased markedly in this is less likely causing up component of her decreased oral intake and or confusion due to uremia. Will hold nephrotoxic medications including Entresto, Bumex and metolazone. * BUN/CR 115/1.6 on am labs * Consult Nephrology for further recommendations. Baseline Cr runs approximately 1.7-2.2 BUN 74, Cr 1.3 Nephrology following and noted patient does not need dialysis at this time (4) Hypokalemia: Code(s): E87.6 - Hypokalemia Status: Acute Assessment and Plan: resolved monitor and replace accordingly (5) Hypotension: Qualifiers: Hypotension type: hypotension due to hypovolemia Qualified Code(s): E86.1 - Hypovolemia Code(s): I95.9 - Hypotension, unspecified Status: Acute Assessment and Plan: The patient has some component of chronic hypotension with cardiology notes mentioning patient had prior asymptomatic hypotension with systolic blood pressures in the 90s. * BP remains stable * Midodrine 10 mg PO TID * Encourage PO intake. Can continue Midodrine for now. continue holding Entresto, Bumex, Metolazone for now. Cardiology input appreciated (6) Cardiomyopathy: Qualifiers: Cardiomyopathy type: ischemic Qualified Code(s): I25.5 - Ischemic cardiomyopathy Code(s): I42.9 - Cardiomyopathy, unspecified Status: Acute Assessment and Plan: * Patient's chest x-ray appears similar to prior. * After receiving 30 mL/kilos fluid bolus patient's oxygen requirement did go up from her baseline 1 L up to 3 L. the patient's BNP is markedly elevated compared to prior values. Wondering if recent initiation of midodrine may have contributed to to an acute decompensation. * The patient had recent echocardiogram earlier this month demonstrated EF that improved to 55%. With some right-sided ventricular enlargement and expected valvular abnormalities given the patient's history. * Hold Entresto,Bumex, or metolazone cardiology following (7) Decubitus ulcer of sacral area: Qualifiers: Pressure injury stage: unspecified pressure injury stage Qualified Code(s): L89.159 - Pressure ulcer of sacral region, unspecified stage Code(s): L89.159 - Pressure ulcer of sacral region, unspecified stage Status: Acute Assessment and Plan: * Wound Care consult. * Antifungal barrier cream. * Turn q 2. * Surgery following in case intervention needs done. * Chad 1 pack BID, encourage PO intake. (8) Ulcer of left heel: Code(s): L97.429 - Non-pressure chronic ulcer of left heel and midfoot with unspecified severity Status: Acute Assessment and Plan: * Santyl to wound bed to promote healing. * Waffle boots. * Surgery following in case intervention needs done. * Chad 1 pack BID, encourage PO intake. (9) Peripheral artery disease: Code(s): I73.9 - Peripheral vascular disease, unspecified Status: Acute Assessment and Plan: ABIs during her last hospitalization showed moderately decreased ABIs consistent with arterial occlusive disease. This can contribute to poor healing with her lower extremity ulcers. cardiology evaluated and noted most likely outpatient intervention (10) Elevated troponin: Code(s): R79.89 - Other specified abnormal findings of blood chemistry Status: Acute Assessment and Plan: * Trop 0.617> 0.633>0.185 likely demand from sepsis trending down cardiology on board Plan Agrees to be in hospice and will be dc tomorrow. Iron deficiency anemia r/o GI bleed hb 8.1 Venofer 1000/1000 FOBT positive GI eval noted, possible endoscopy and colonoscopy as OP monitor h and h GI following Possible Pneumonia CT Chest showed possible Atypical pneumonia Doxycycline will be completed on 09/04 monitor FTT/protein energy malnutrition appetite and oral intake improving On Dronabinol Patient still not eating, and refuses Tube feeding dietitian following patient stated she would eat if she ordered her breakfast with her food choice, however she still did not eat and still declined tube feeding Consulted child care group leader for hospice/palliative care discussion contiue D5/NS for now Paroxysmal Afib with RVR Continue Amiodarone per cardiology Not on Anticoagulation at home due GI bleed issues and s/p left atrial appendage ligation monitor cards following Hypernatremia Na 146 Continue d5w/NS adjust fluids accordingly DVT prophylaxis on Sq heparin Discussed care plan with and patient at bedside Follow up with hospice/palliative care discussion Subjective Date/time seen: 09/06/24 14:05 Interval history: In regards to the anemia, discussed with Gastroenterology. Planning outpatient endoscopy and colonoscopy. In regards to renal insufficiency patient creatinine BUN is improving. Patient also has chronic left heel ulcer which is followed by the surgery. In regards to AF for patient is on amiodarone not on anticoagulation due to the left atrial appendage. Discontinued IV fluids encouraged p.o. fluid. Hold Entresto,Bumex, or metolazone . 09/05 : Discussed with cardiology and will continue to hold Entresto, Bumex, metolazone.The above medications can be held and continued after following up with Cardiology in a week upon discharge. Today discussed with her about terminal block assembler goals. Patient is not motivated in doing PT . In my observation past 2 days patient lays in bed and unwilling to talk to me. Patient also needs formal psychiatric evaluation as OP to screen for depression. After the long conversation with her ,patient who was listening to the whole conversation, agrees to talk to hospice .Both of them will make a decision on ho spice after the speaking with hospice physician. As mentioned patient has multiple co-morbid conditions. 09/06: Continues to refuse treatment and medications. Family discussed with the hospice team and patient agrees to be in hospice.No aggressive treatment or interventions moving forward. Review of Systems Review of Systems: All systems reviewed & are unremarkable except as noted in HPI and below ROS unobtainable: Yes unobtainable due to mental status Exam Narrative: General: female in no acute respiratory distress who is nontoxic appearing, lying semi recumbent in bed. HEENT: Normocephalic. Atraumatic. Extraocular movement intact. Sclera clear and anicteric. No facial asymmetry. Chest: Lungs are coarse to auscultation bilaterally. No wheezes or crackles. Remains on 2L NC. CV: Heart was regular rate and rhythm. S1-S2. No murmurs, gallops, or rubs. Abd: Abdomen was soft. Nontender. Nondistended. Positive bowel sounds. No organomegaly or masses. Ext: No clubbing, cyanosis, or edema. 2+ DP pulses bilaterally. Neuro: Patient is alert and oriented x4. Cranial nerves 2-12 are intact. Speech is clear. Const: General: comfortable and no acute distress Other: Acutely ill-appearing, obese, appears older than stated age HENMT: Other: Head is normocephalic atraumatic, lips are dry with peeling skin the, mucous membranes are dry, fair dentition but exam limited as the patient only minimally opens her mouth Eyes: Other: Pupils are equal and reactive, marked conjunctival pallor, no scleral icterus Neck: Other: No obvious JVD, large neck circumference, supple Resp: Effort & Inspection: normal respiratory effort Auscultation: clear to auscultation bilaterally Other: Mild tachypnea, accessory muscle use, decreased breath sounds bilaterally most notably at the bases Cardio: Rate: regular rate Rhythm: regular rhythm Other: paced 71 GI: Auscultation: normal bowel sounds Other: Obese, soft, nontender : Other: Melchor catheter in place with 250 mL of dark yellow urine Urinary Catheter: Urinary Catheter: patent and draining (yellow) Skin: General skin exam: wounds noted Wounds: wounds noted Other: surgical evaluation noted today Right lateral lower leg ulcer appears superf icial but with 100% of the wound bed dark red/purple and black with mild localized pink discoloration of the skin around the border of the wound. No crepitus, no purulent drainage, and no odor. Unchanged from yesterday. Right heel with a purple deep tissue injury measuring 5 x 6 cm, nonblanchable, all of the overlying skin is intact. Stage IV left heel ulcer measuring 4.5 x 6 x 1 cm with more yellow and mendes slough in about 80% of the wound bed today. No purulent drainage, no crepitus, and no foul odor . Neuro: Speech: normal speech Other: Patient is alert oriented to person, place and year, she is confused as to time and thought the month was August already she is a poor historian regarding recent events and why she was brought to the hospital, speech is slow and clear but only answering in 1-2 word intervals, patient has 5/5 strength on the left consumer credit counselor and 3/5 strength on the right, patient was unable to pull her feet away from noxious stimuli Extrem: General: pedal edema bilaterally 2+ Other: Patient has chronic wounds 1 of the posterior right lower calf with a slightly larger base than previous but base appears clean no evidence of surrounding erythema (please see nursing documentation for imaging), and black eschar on the left heel dry, no drainage, no surrounding erythema, 1+ pretibial edema bilateral Psych: Mental Status: mental status grossly normal Affect: normal affect Other: Affect flat Objective Data Vital Signs Vital Signs: Vital Signs - 24 hr 09/05/24 20:00 09/05/24 20:05 09/05/24 22:40 Temperature 96.8 F L Pulse Rate 104 H Respiratory Rate 26 H Blood Pressure 102/30 L Pulse Oximetry 95 Oxygen Delivery Room Air Nasal Cannula Oxygen Flow Rate 3 09/06/24 06:00 09/06/24 09:13 09/06/24 09:13 Temperature 98.9 F Pulse Rate 88 83 Respiratory Rate 28 H 20 Blood Pressure Pulse Oximetry 91 95 Oxygen Delivery Nasal Cannula Oxygen Flow Rate 3 09/06/24 10:56 Temperature Pulse Rate Respiratory Rate Blood Pressure Pulse Oximetry 95 Oxygen Delivery Nasal Cannula Oxygen Flow Rate 3 Intake/Output Intake/Output: Intake & Output 09/03/24 09/04/24 09/05/24 09/06/24 23:59 23:59 23:59 23:59 Intake Total 2100 75 25 240 Balance 2100 75 25 240 Meds/Results Medications: Active Medications Generic Name Dose Route Start Last Admin Trade Name Freq PRN Reason Stop Dose Admin Acetaminophen 650 mg 08/27/24 21:31 08/28/24 23:47 Acetaminophen 325 Mg Tablet PO 650 mg Q6H PRN Administration Mild Pain (1-3) or Fever Allopurinol 50 mg 08/26/24 09:00 09/05/24 17:05 Allopurinol 50 Mg Tablet PO Not Given Q48H [facility] Amiodarone HCl 200 mg 09/01/24 09:00 09/06/24 10:49 Amiodarone Hcl 200 Mg Tablet PO Not Given BID [facility] Amoxicillin/Clavulanate Potassium 1 tablet 09/04/24 09:00 09/06/24 10:50 Amoxicillin/Clavulanate K 875-125 Mg Tab PO 09/09/24 21:01 Not Given Q12HR [facility] Aspirin 325 mg 08/26/24 09:00 09/06/24 10:50 Aspirin 325 Mg Tablet PO Not Given DAILY [facility] Collagenase 1 applic 08/26/24 09:00 09/06/24 10:50 Collagenase Oint 30 Gm Tube TOPICAL Not Given QAM [facility] Epoetin Crispin-epbx 10,000 units 08/29/24 09:00 09/05/24 17:06 Epoetin Crispin-Epbx 10,000 Units/Ml Vial SUB-Q Not Given TUTHSA@09 [facility] Heparin Sodium (Porcine) 5,000 units 08/26/24 09:00 09/06/24 10:50 Heparin Sodium 5,000 Units/Ml Vial SUB-Q Not Given Q12HR [facility] Levothyroxine Sodium 75 mcg 08/26/24 06:30 09/06/24 05:37 Levothyroxine Sodium 75 Mcg Tablet PO Not Given DAILY@0630 [facility] Midodrine 5 mg 09/05/24 13:00 09/06/24 13:52 Midodrine Hcl 2.5 Mg Tablet PO Not Given TID [facility] Umeclidinium Laverne 1 puff 08/26/24 08:00 09/06/24 09:13 Umeclidinium Laverne 62.5 Mcg Ellipta INHALATION Not Given DAILYRT [facility] Radiology Results: ITS Impressions Foot X-Ray 08/25/24 18:30 IMPRESSION: Very prominent soft tissue ulcer at the posterior heel, with suggestion of calcaneal exposure Soft tissue swelling Prominent osteopenia; this may obscure fracture or bone destruction. If there is concern for osteomyelitis, consider three-phase radionuclide bone scan. Tibia/Fibula X-Ray 08/25/24 18:35 IMPRESSION: Osteopenia Soft tissue swelling Arterial calcifications Head CT 08/25/24 18:43 IMPRESSION: Cerebral atherosclerosis and chronic small vessel ischemic changes of the cerebral white matter Small chronic right frontal probable cerebrovascular accident No acute intracranial finding or hemorrhage Chest CT 08/29/24 11:08 IMPRESSION: 1. Groundglass opacities in right middle lobe and anterior segment right upper lobe, consistent with mild pulmonary edema versus atypical pneumonia. 2. Small pleural effusions. Chest X-Ray 09/01/24 15:29 IMPRESSION: Cardiomegaly, congestive heart failure and pulmonary interstitial edema, small pleural effusions mildly improved since 08/28/2024 Labs Labs: Laboratory Results - last 24 hr 09/06/24 06:42 WBC 6.8 RBC 3.28 L Hgb 8.3 L Hct 29.3 L MCV 89.3 MCH 25.3 L MCHC 28.3 L RDW 23.1 H Plt Count 261 MPV 13.0 H % Immature Plt Fraction 10.3 Sodium 147 H Potassium 4.6 Chloride 110 H Carbon Dioxide 34 H Anion Gap 3 L BUN 35 H Creatinine 1.40 H Estim Creat Clear Calc 32 Estimated GFR 37 L Glucose 81 Calcium 9.8 Total Bilirubin 0.7 AST 26 ALT 13 Alkaline Phosphatase 103 Total Protein 6.0 L Albumin 3.0 L Quality VTE Prophylaxis VTE prophylaxis: pharmacologic ordered (Heparin 5000 units subQ q.12 hours)
[2024-09-06 19:55] VITALS: PULSE 95; RESP 28; TEMP 36.3; O2SAT 95
[2024-09-06 20:00] VITALS: O2SAT 95
[2024-09-07 04:05] VITALS: PULSE 62; RESP 28; TEMP 36.2; O2SAT 93
[2024-09-07] MEDS: HEPARIN SODIUM 5,000 UNITS/ML VIAL 5000 UNITS SUB-Q (09:21)
[2024-09-07] MEDS: EPOETIN ALFA-EPBX 10,000 UNITS/ML VIAL 10000 UNITS SUB-Q (09:22)
[2024-09-07 09:56] VITALS: PULSE 129
[2024-09-07 10:00] LABS: Basophils Percent Auto 0.3 % (0.2-1.2); Eosinophils Percent Auto 0.2 % (0-4.4); Hematocrit 30.7 % (37.0-47.0); Hemoglobin 8.6 g/dL (12.0-15.0); Immature Granulocyte Absolute 0.05 K/mm3 (0.00-0.031); Immature Granulocyte Percent A 0.8 % (0-0.5); Lymphocytes Absolute Auto 0.55 K/mm3 (0.9-3.2); Lymphocytes Percent Auto 8.9 % (18.3-44.2); Mean Corpuscular Hemoglobin 25.3 pg (26-34); Mean Corpuscular Volume 90.3 fl (80-100); Mean Platelet Volume 12.2 fl (7.4-10.4); Monocytes Absolute Auto 0.8 K/mm3 (0.1-0.6); Monocytes Percent Auto 12.8 % (2.6-8.5); Neutrophils Absolute Auto 4.7 K/mm3 (1.3-6.7); Nucleated Red Blood Cells Perc 1.3 % (0.0-0.2); Platelet Count Result 244 k/mm3 (150-375); Red Cell Distribution Width 24.1 % (11.5-14.5); White Blood Count 6.2 K/mm3 (4.5-10.0)
[2024-09-07 10:13] VITALS: O2SAT 100
[2024-09-07 10:26] LABS: Alanine Aminotransferase 13 U/L (6-35); Albumin Level 2.9 g/dL (3.5-5.1); Alkaline Phosphatase 106 U/L (38-126); Anion Gap 2 mmol/L (4-12); Aspartate Amino Transferase 20 U/L (14-36); Bilirubin,Total 0.8 mg/dL (0.2-1.3); Blood Urea Nitrogen 37 mg/dL (7-17); Carbon Dioxide 36 mmol/L (22-30); Chloride 112 mmol/L (98-107); Estimated CRCL calculation 28 ml/min; Estimated Glomerular Filt Rate 32; Glucose 74 mg/dL (65-110); Sodium 150 mmol/L (137-145)
[2024-09-07 10:50] LABS: Anisocytosis 2+; Hypochromasia 1+; Platelet Estimate Adequate (Adequate); Schistocytes None Seen; Stomatocytes 1+
--- NOTE | 2024-09-07 13:22 | P.DS_ITS ---
DS: Admitting Diagnosis Discharge Date 09/07/2024 Admitting Diagnosis Altered mental status, FRANK (acute kidney injury), Ulcer of left heel DS: Discharge Diagnosis Discharge Diagnosis (1) Metabolic encephalopathy: Code(s): G93.41 - Metabolic encephalopathy Status: Acute Assessment and Plan: * Likely due to uremia/azotemia with markedly elevated BUN above baseline. However cannot rule out some component of encephalopathy due to acute infection. resolved (2) Acute on chronic renal failure: Qualifiers: Acute renal failure type: unspecified Chronic kidney disease stage: stage 4 (severe) Qualified Code(s): N17.9 - Acute kidney failure, unspecified; N18.4 - Chronic kidney disease, stage 4 (severe) Code(s): N17.9 - Acute kidney failure, unspecified; N18.9 - Chronic kidney disease, unspecified Status: Acute Assessment and Plan: Most likely multifactorial. It is certainly component of hypovolemia decreased fluid intake given the patient's clinical appearance. Patient is also on diuret ic therapy and has some prerenal component due to acute on chronic hypotension. * Patient's BUN has increased markedly in this is less likely causing up component of her decreased oral intake and or confusion due to uremia. Will hold nephrotoxic medications including Entresto, Bumex and metolazone. * BUN/CR 115/1.6 on am labs * Consult Nephrology for further recommendations. Baseline Cr runs approximately 1.7-2.2 BUN 74, Cr 1.3 Nephrology following and noted patient does not need dialysis at this time (3) Hypokalemia: Code(s): E87.6 - Hypokalemia Status: Acute Assessment and Plan: resolved monitor and replace accordingly (4) Hypotension: Qualifiers: Hypotension type: hypotension due to hypovolemia Qualified Code(s): E86.1 - Hypovolemia Code(s): I95.9 - Hypotension, unspecified Status: Acute Assessment and Plan: The patient has some component of chronic hypotension with cardiology notes mentioning patient had prior asymptomatic hypotension with systolic blood pressures in the 90s. * BP remains stable * Midodrine 10 mg PO TID * Encourage PO intake. Can continue Midodrine for now. continue holding Entresto, Bumex, Metolazone for now. Cardiology input appreciated (5) Cardiomyopathy: Qualifiers: Cardiomyopathy type: ischemic Qualified Code(s): I25.5 - Ischemic cardiomyopathy Code(s): I42.9 - Cardiomyopathy, unspecified Status: Acute Assessment and Plan: * Patient's chest x-ray appears similar to prior. * After receiving 30 mL/kilos fluid bolus patient's oxygen requirement did go up from her baseline 1 L up to 3 L. the patient's BNP is markedly elevated compared to prior values. Wondering if recent initiation of midodrine may have contributed to to an acute decompensation. * The patient had recent echocardiogram earlier this month demonstrated EF that improved to 55%. With some right-sided ventricular enlargement and expected valvular abnormalities given the patient's history. * Hold Entresto,Bumex, or metolazone cardiology following (6) Decubitus ulcer of sacral area: Qualifiers: Pressure injury stage: unspecified pressure injury stage Qualified Code(s): L89.159 - Pressure ulcer of sacral region, unspecified stage Code(s): L89.159 - Pressure ulcer of sacral region, unspecified stage Status: Acute Assessment and Plan: * Wound Care consult. * Antifungal barrier cream. * Turn q 2. * Surgery following in case intervention needs done. * Chad 1 pack BID, encourage PO intake. (7) Ulcer of left heel: Code(s): L97.429 - Non-pressure chronic ulcer of left heel and midfoot with unspecified severity Status: Acute Assessment and Plan: * Santyl to wound bed to promote healing. * Waffle boots. * Surgery following in case intervention needs done. * Chad 1 pack BID, encourage PO intake. (8) Peripheral artery disease: Code(s): I73.9 - Peripheral vascular disease, unspecified Status: Acute Assessment and Plan: ABIs during her last hospitalization showed moderately decreased ABIs consistent with arterial occlusive disease. This can contribute to poor healing with her lower extremity ulcers. cardiology evaluated and noted most likely outpatient intervention (9) Elevated troponin: Code(s): R79.89 - Other specified abnormal findings of blood chemistry Status: Acute Assessment and Plan: * Trop 0.617> 0.633>0.185 likely demand from sepsis trending down cardiology on board Plan Agrees to be in hospice . Please refer to hospital course for brief course of hospitalization. Iron deficiency anemia r/o GI bleed hb 8.1 Venofer 1000/1000 FOBT positive GI eval noted, possible endoscopy and colonoscopy as OP monitor h and h GI following Possible Pneumonia CT Chest showed possible Atypical pneumonia Doxycycline will be completed on 09/04 monitor FTT/protein energy malnutrition appetite and oral intake improving On Dronabinol Patient still not eating, and refuses Tube feeding dietitian following patient stated she would eat if she ordered her breakfast with her food choice, however she still did not eat and still declined tube feeding Consulted healthcare receptionist for hospice/palliative care discussion contiue D5/NS for now Paroxysmal Afib with RVR Continue Amiodarone per cardiology Not on Anticoagulation at home due GI bleed issues and s/p left atrial appendage ligation monitor cards following Hypernatremia Na 146 Continue d5w/NS adjust fluids accordingly DVT prophylaxis on Sq heparin Discussed care plan with and patient at bedside Follow up with hospice/palliative care discussion DS: Summary Hospital Course Hospital Course: 74-year-old female with a past medical history of coronary artery disease status post 2 vessel CABG, chronic kidney disease stage 4, paroxysmal atrial fibrillation status ligation of left atrial appendage, mitral valve regurgitation with mitral valve replacement, tricuspid valve repair, severe cardiomyopathy with pacemaker/ICD, most recent EF up 55, COPD with continued tobacco use, and recent admission for septic shock requiring central line placement 08/07/2024 through 08/15/2024 who returns to the hospital from home via EMS due to altered mental status and unable to get out of bed for 2 days. In regards to the anemia, discussed with Gastroenterology. Planning outpatient endoscopy and colonoscopy. In regards to renal insufficiency patient creatinine BUN is improving. Patient also has chronic left heel ulcer which is followed by the surgery, no aggressive treatment is recommended. In regards to AF for patient is on amiodarone not on anticoagulation due to the left atrial appendage. Discontinued IV fluids encouraged p.o. fluid. Hold Entresto,Bumex, or metolazone . Discussed with cardiology who agrees to hold all the medication and can be continued as OP if necessary. Patient denies to take any medications, PT/OT or any other interventions. Patient agrees to be in hospice but prefers without any medications. Status at Discharge Cognitive/behavioral status at discharge: Stable Time Spent with Patient Time attestation: Total time spent providing and/or coordinating discharge services:45 mins Exam Narrative: General: female in no acute respiratory distress who is nontoxic appearing, lying semi recumbent in bed. HEENT: Normocephalic. Atraumatic. Extraocular movement intact. Sclera clear and anicteric. No facial asymmetry. Chest: Lungs are coarse to auscultation bilaterally. No wheezes or crackles. Remains on 2L NC. CV: Heart was regular rate and rhythm. S1-S2. No murmurs, gallops, or rubs. Abd: Abdomen was soft. Nontender. Nondistended. Positive bowel sounds. No organomegaly or masses. Ext: No clubbing, cyanosis, or edema. 2+ DP pulses bilaterally. Neuro: Patient is alert and oriented x4. Cranial nerves 2-12 are intact. Speech is clear. Const: General: comfortable and no acute distress Other: Acutely ill-appearing, obese, appears older than stated age HENMT: Other: Head is normocephalic atraumatic, lips are dry with peeling skin the, mucous membranes are dry, fair dentition but exam limited as the patient only minimally opens her mouth Eyes: Other: Pupils are equal and reactive, marked conjunctival pallor, no scleral icterus Neck: Other: No obvious JVD, large neck circumference, supple Resp: Effort & Inspection: normal respiratory effort Auscultation: clear to auscultation bilaterally Other: Mild tachypnea, accessory muscle use, decreased breath sounds bilaterally most notably at the bases Cardio: Rate: regular rate Rhythm: regular rhythm Other: paced 71 GI: Auscultation: normal bowel sounds Other: Obese, soft, nontender : Other: Melchor catheter in place with 250 mL of dark yellow urine Urinary Catheter: Urinary Catheter: patent and draining (yellow) Skin: General skin exam: wounds noted Wounds: wounds noted Other: surgical evaluation noted today Right lateral lower leg ulcer appears superficial but with 100% of the wound bed dark red/purple and black with mild localized pink discoloration of the skin around the border of the wound. No crepitus, no purulent drainage, and no odor. Unchanged from yesterday. Right heel with a purple deep tissue injury measuring 5 x 6 cm, nonblanchable, all of the overlying skin is intact. Stage IV left heel ulcer measuring 4.5 x 6 x 1 cm with more yellow and mendes slough in about 80% of the wound bed today. No purulent drainage, no crepitus, and no foul odor . Neuro: Speech: normal speech Other: Patient is alert oriented to person, place and year, she is confused as to time and thought the month was August already she is a poor historian regarding recent events and why she was brought to the hospital, speech is slow and clear but only answering in 1-2 word intervals, patient has 5/5 strength on the left painter hand and 3/5 strength on the right, patient was unable to pull her feet away from noxious stimuli Extrem: General: pedal edema bilaterally 2+ Other: Patient has chronic wounds 1 of the posterior right lower calf with a slightly larger base than previous but base appears clean no evidence of surrounding erythema (please see nursing documentation for imaging), and black eschar on the left heel dry, no drainage, no surrounding erythema, 1+ pretibial edema bilateral Psych: Mental Status: mental status grossly normal Affect: normal affect Other: Affect flat DS: Data Data Completed and Pending Labs on day of discharge: Labs from last 24 hours 09/07/24 09:48 WBC 6.2 RBC 3.40 L Hgb 8.6 L Hct 30.7 L MCV 90.3 MCH 25.3 L MCHC 28.0 L RDW 24.1 H Plt Count 244 MPV 12.2 H Immature Gran % (Auto) 0.8 H Neut % (Auto) 77.0 H Lymph % (Auto) 8.9 L [place] % (Auto) 12.8 H Eos % (Auto) 0.2 Baso % (Auto) 0.3 Lymph # (Auto) 0.55 L [place] # (Auto) 0.8 H Eos # (Auto) 0.0 Baso # (Auto) 0.0 Abs Immat Gran (auto) 0.05 H Absolute Neuts (auto) 4.7 Absolute Nucleated RBC 0.080 H Nucleated RBC % 1.3 H Platelet Estimate Adequate Hypochromasia 1+ Anisocytosis 2+ Stomatocytes 1+ Schistocytes None seen Sodium 150 H Potassium 5.0 Chloride 112 H Carbon Dioxide 36 H Anion Gap 2 L BUN 37 H Creatinine 1.60 H Estim Creat Clear Calc 28 Estimated GFR 32 L Glucose 74 Calcium 10.0 Total Bilirubin 0.8 AST 20 ALT 13 Alkaline Phosphatase 106 Total Protein 6.0 L Albumin 2.9 L Discharge Plan Discharge Attending physician on discharge: Isma Willingham Consulting providers: Bony Shankar; Louise Hong; Camille Montana; Eris Aragon Discharging Clinician: Isma Willingham Anticipated Discharge Date/Time: 09/07/24 13:18 Patient Disposition: Hospice - Home Activity: as tolerated Diet: regular Discharge Instructions: Patient is charged to Hospice Medication should be reconciled as per Hospice protocol once discharged. Patient Instructions: Antibiotic Form, Heart Failure (DC), Pain Management (DC) Stand Alone Forms: General Discharge Information Discharge Medications: Continued levothyroxine 75 mcg tablet 75 mcg PO DAILY bumetanide 1 mg Tablet 2 mg PO DAILY Qty: 60 0RF Incruse Ellipta 62.5 mcg/actuation Blister With Device 1 inh inhalation DAILYRT Qty: 30 0RF amiodarone [Pacerone] 200 mg tablet 200 mg PO DAILY albuterol sulfate 90 mcg/actuation HFA aerosol inhaler 2 inh inhalation Q4H PRN (Reason: shortness of breath or wheezing) Qty: 8.5 2RF gabapentin 100 mg capsule 200 mg PO BID Qty: 120 3RF Held metolazone 2.5 mg tablet 2.5 mg PO DAILY Hold Instructions: Resume on 09/28/24. Continue at the discretion of Hospice Physician allopurinol 100 mg tablet 50 mg PO Q48H Qty: 30 8RF Hold Instructions: Resume on 09/27/24. Continue at the discretion of Hospice Physician Entresto 49-51 mg Tablet 0.5 tablet PO Q12HR Qty: 30 0RF Hold Instructions: Resume on 09/27/24. Continue at the discretion of Hospice Physician Discontinued amoxicillin-pot clavulanate [Augmentin] 500-125 mg Tablet 1 tablet PO Q12HR Qty: 20 0RF doxycycline hyclate 100 mg Tablet 100 mg PO Q12HR Qty: 20 0RF midodrine 10 mg Tablet 10 mg PO TID Qty: 90 0RF ferrous sulfate 325 mg (65 mg iron) tablet 325 mg PO BID Qty: 60 0RF aspirin 325 mg Tablet 325 mg PO DAILY Date of admission: 08/25/24 21:18 Primary Care Provider: Moe Reyes Admitting Provider: Brynn Yan Attending physician on admission: Bushra Mar Condition: Guarded Prognosis Hospitalist MIPS If Yes, Heart Failure (Qualifier) Patient was prescribed or already taking bisoprolol, carvedilol, or sustained release metoprolol succinate: Yes If Medications not prescribed/taking Reason patient not prescribed/taking GIANCARLO or ARB: Patient reasons: pt declined or other pt reason
[2024-09-07 14:00] VITALS: BP 98/57; PULSE 91; RESP 22; TEMP 36.6; O2SAT 97
--- NOTE | 2024-09-08 09:45 | PC.NURSE ---
Patient's called with questions regarding discharge instructions. This RN advised to call [facility] with questions regarding current medications orders and lab orders. Patient's voiced understanding.
== END 2024-09-07 21:30 | disposition hospice, home (50) | DRG 682 ==
LOC: ANHED 16:32 → ANHIMU 21:29 → ANH3MEDSUR 08-26 15:28 → ANHIMU 09-09 13:05
PROVIDERS: Internal Medicine; Internal Medicine Nephrology; Nurse Practitioner Family; Student in an Organized Health Care Education/Training Program; Admitting Provider Internal Medicine; Emergency Provider Physician Assistant; PCP Family Medicine Adolescent Medicine; Visit Provider General Practice
DX: N17.9 Acute kidney failure, unspecified (principal); G93.41 Metabolic encephalopathy; J18.9 Pneumonia, unspecified organism; L89.624 Pressure ulcer of left heel, stage 4; E46 Unspecified protein-calorie malnutrition; E87.0 Hyperosmolality and hypernatremia; I13.0 Hypertensive heart and chronic kidney disease with heart failure and stage 1 through stage 4 chronic kidney disease, or unspecified chronic kidney disease; I24.89 Other forms of acute ischemic heart disease; N18.4 Chronic kidney disease, stage 4 (severe); I50.9 Heart failure, unspecified; E86.1 Hypovolemia; E86.0 Dehydration; I95.9 Hypotension, unspecified; E66.9 Obesity, unspecified; Z20.822 Contact with and (suspected) exposure to COVID-19; I25.5 Ischemic cardiomyopathy; I25.10 Atherosclerotic heart disease of native coronary artery without angina pectoris; E87.6 Hypokalemia; I48.0 Paroxysmal atrial fibrillation; F17.210 Nicotine dependence, cigarettes, uncomplicated; D50.9 Iron deficiency anemia, unspecified; I35.0 Nonrheumatic aortic (valve) stenosis; J44.9 Chronic obstructive pulmonary disease, unspecified; E78.5 Hyperlipidemia, unspecified; L89.899 Pressure ulcer of other site, unspecified stage; I70.223 Atherosclerosis of native arteries of extremities with rest pain, bilateral legs; B37.31 Acute candidiasis of vulva and vagina; L89.159 Pressure ulcer of sacral region, unspecified stage; L40.9 Psoriasis, unspecified; Z68.33 Body mass index [BMI] 33.0-33.9, adult; Z95.2 Presence of prosthetic heart valve; Z95.1 Presence of aortocoronary bypass graft; Z95.810 Presence of automatic (implantable) cardiac defibrillator; I25.2 Old myocardial infarction; Z90.49 Acquired absence of other specified parts of digestive tract; Z79.82 Long term (current) use of aspirin; Z95.5 Presence of coronary angioplasty implant and graft
CPT/HCPCS: 36415; 36600; 70450; 71045; 71250; 73590; 73620; 80048; 80053; 81001; 82274; 82533; 82550; 82607; 82728; 82746; 82805; 82948; 83540; 83550; 83605; 83690; 83735; 83880; 84100; 84145; 84439; 84443; 84480; 84484; 85018; 85025; 85027; 85055; 85610; 85652; 85730; 86140; 86704; 86706; 87040; 87086; 87340; 87637; 87641; 92610; 93005; 94640; 96361; 96365; 96366; 96367; 96368; 97110; 97162; 97165; 97530; 97535; 99285; A9270; J0282; J0692; J0696; J1450; J1644; J1756; J1836; J3370; J3475; J3480; J7030; J7040; J7050; J7060; J7070; J7120; P9047; Q5105